=== PATIENT | female | born 1980 | race Caucasian/White ===

== ENCOUNTER → 2016-08-01 | Outpatient (REF) | payer MEDICARE ==
[~2016-08-01] MED LIST: ALBUTEROL INH INH; AMOXICILLIN PO; CELE100C; CELE40TA; CELEXA; DARV100T; FLEXERIL; GLUC500T OR; HYDROCODONE; HYDROCODONE PO; IBUP600T; LISI5TAB OR; MACR50CA OR; PERC5TAB8; RISP3TAB16 OR; RISPERIDOL PO; ROBITUSSIN PE PO; TYLEN PO; VOLTAREN GEL; WELL100T OR; [UNRECOGNIZED DRUG - OTHER]; [UNRECOGNIZED DRUG - OTHER] PO
== END ==
LOC: M SFHCPLAZ 14:47
PROVIDERS: ATTEND Family Medicine
DX: E11.9 Type 2 diabetes mellitus without complications (principal)

== ENCOUNTER → 2016-08-09 | Outpatient (REF) | payer MEDICARE ==
[2016-08-09 11:02] LABS: ANION GAP 7 MEQ/L (8-16); BLOOD UREA NITROGEN 13 MG/DL (7-18); CALCIUM LEVEL 8.4 MG/DL (8.5-10.1); CARBON DIOXIDE LEVEL 28 MEQ/L (21-32); CHLORIDE LEVEL 107 MEQ/L (98-107); CREATININE FOR GFR 0.78 MG/DL (0.55-1.02); GLOMERULAR FILTRATION RATE > 60.0 (>60); GLUCOSE, FASTING 185 MG/DL (70-105); POTASSIUM SERUM 4.1 MEQ/L (3.5-5.1); SODIUM LEVEL 142 MEQ/L (136-145)
== END ==
LOC: M SFHCPLAZ 09:17
PROVIDERS: ATTEND Family Medicine
DX: E11.9 Type 2 diabetes mellitus without complications (principal)

== ENCOUNTER → 2016-10-13 | Outpatient (REF) | payer MEDICARE, MEDICAID | LOC: M SFHCPLAZ 15:17 | DX: M79.89 Other specified soft tissue disorders (principal) | CPT/HCPCS: 82043; G0463 ==

== ENCOUNTER → 2016-12-05 | Outpatient (REF) | payer MEDICARE, MEDICAID | LOC: M SFHCWAGY 13:25 | PROVIDERS: ATTEND Nurse Practitioner Family | DX: Z12.4 Encounter for screening for malignant neoplasm of cervix (principal); R87.610 Atypical squamous cells of undetermined significance on cytologic smear of cervix (ASC-US) | CPT/HCPCS: 87624; G0101; G0123 ==

== ENCOUNTER → 2016-12-07 | Outpatient (REF) | payer MEDICARE, MEDICAID | LOC: M SFHCPLAZ 09:32 | DX: E11.9 Type 2 diabetes mellitus without complications (principal) ==

== ENCOUNTER → 2016-12-15 | Outpatient (CLI) | payer MEDICARE, MEDICAID ==
--- NOTE | 2016-12-15 12:03 | REP ---
Soft-tissue ultrasound left lower extremity. History: Mass in the left lower leg. 1 cm nodule in the anterior aspect of the left lower leg on physical examination. No comparison radiography. Findings: Scanning at the level of the palpable lump demonstrates a calcified echogenic shadowing nodule measuring 1.0 x 1.0 x 0.7 cm in the subcutaneous fat. There is no evidence of intralesional blood flow by Doppler. No other mass lesion is seen. Impression: Calcified nodule in the subcutaneous fat anterior aspect of the left leg. Signed by Dontrell Gayle MD 12/15/2016 02:15 P
== END ==
LOC: M RAD 09:52
PROVIDERS: ATTEND Family Medicine
DX: R22.42 Localized swelling, mass and lump, left lower limb (principal)

== ENCOUNTER → 2017-03-13 | Outpatient (REF) | payer MEDICARE ==
[2017-03-13 12:31] LABS: ALBUMIN 3.3 GM/DL (3.2-5.2); ALKALINE PHOSPHATASE 61 U/L (45-117); ALT/SGPT 37 U/L (12-78); AST/SGOT 18 U/L (7-37); BILIRUBIN,DIRECT < 0.1 MG/DL (0.0-0.2); BILIRUBIN,TOTAL 0.2 MG/DL (0.2-1.0); TOTAL PROTEIN 6.3 GM/DL (6.4-8.2)
[2017-03-14 11:03] LABS: HEPATITIS B SURFACE ANTIBODY NEGATIVE (POSITIVE)
== END ==
LOC: M SFHCPLAZ 09:38
DX: E11.9 Type 2 diabetes mellitus without complications (principal); Z11.59 Encounter for screening for other viral diseases; K76.0 Fatty (change of) liver, not elsewhere classified; N92.0 Excessive and frequent menstruation with regular cycle

== ENCOUNTER → 2017-07-03 | Outpatient (REF) | payer MEDICARE, MEDICAID ==
[2017-07-03 11:17] LABS: ESTIMATED AVERAGE GLUCOSE 206 MG/DL (60-110); HEMOGLOBIN A1c 8.8 %
== END ==
LOC: M LABDRAW1 10:40
DX: E11.9 Type 2 diabetes mellitus without complications (principal)
CPT/HCPCS: 83036

== ENCOUNTER → 2017-08-21 | Outpatient (REF) | payer MEDICARE, MEDICAID ==
[2017-08-21 12:11] LABS: LIPASE 150 U/L (73-393)
[2017-08-21 12:11] LABS: AMYLASE 33 U/L (25-115)
== END ==
LOC: M SFHCPLAZ 09:19
DX: K21.9 Gastro-esophageal reflux disease without esophagitis (principal)
CPT/HCPCS: 82150

== ENCOUNTER → 2017-08-26 | Outpatient (REF) | payer MEDICARE, MEDICAID ==
[2017-09-03 10:11] LABS: H PYLORI STOOL ANTIGEN Negative (Negative)
== END ==
LOC: M SFHCLERA 08-31 17:13
DX: K21.9 Gastro-esophageal reflux disease without esophagitis (principal)
CPT/HCPCS: 87338

== ENCOUNTER → 2017-09-12 | Outpatient (REF) | payer MEDICARE, MEDICAID ==
[2017-09-12 11:56] LABS: CONTROL LINE UCG INT CTR LINE PRESENT; URINE PREG TEST NEGATIVE (NEGATIVE)
[2017-09-12 12:19] LABS: ALBUMIN 3.5 GM/DL (3.2-5.2); ALBUMIN/GLOBULIN RATIO 1.06 (1.00-1.93); ALKALINE PHOSPHATASE 74 U/L (45-117); ALT/SGPT 56 U/L (12-78); ANION GAP 8 MEQ/L (8-16); AST/SGOT 27 U/L (7-37); BILIRUBIN,TOTAL 0.5 MG/DL (0.2-1.0); BLOOD UREA NITROGEN 14 MG/DL (7-18); CALCIUM LEVEL 8.4 MG/DL (8.5-10.1); CARBON DIOXIDE LEVEL 27 MEQ/L (21-32); CHLORIDE LEVEL 103 MEQ/L (98-107); CREATININE FOR GFR 0.64 MG/DL (0.55-1.30); GLOMERULAR FILTRATION RATE > 60.0 (>60); GLUCOSE, FASTING 323 MG/DL (70-100); POTASSIUM SERUM 4.2 MEQ/L (3.5-5.1); SODIUM LEVEL 138 MEQ/L (136-145); TOTAL PROTEIN 6.8 GM/DL (6.4-8.2)
== END ==
LOC: M SFHCPLAZ 08:08
DX: R63.5 Abnormal weight gain (principal); K21.9 Gastro-esophageal reflux disease without esophagitis
CPT/HCPCS: 84443

== ENCOUNTER 2017-09-27 11:07 | Day surgery (SDC) | payer MEDICARE, MEDICAID ==
[2017-09-27] MEDS: NS 1,000 ML IV (12:15)
[2017-09-27 12:44] LABS: BEDSIDE GLUCOSE 337 MG/DL (70-105)
[2017-09-27] MEDS ORDERED: fentaNYL 100 MCG/2 ML INJECTION (J3010) As Ordered (13:02)
[2017-09-27] MEDS ORDERED: PROPOFOL 200 MG/20 ML VIAL As Ordered (13:17)
[2017-09-27] MEDS ORDERED: LIDOCAINE 2% INJ 100 MG/5 ML SDV (FOR ANES.) As Ordered (13:17)
== END 2017-09-27 13:59 | disposition home or self-care (01) ==
LOC: M OPP 11:07
DX: R11.10 Vomiting, unspecified (principal); K21.0 Gastro-esophageal reflux disease with esophagitis; K29.70 Gastritis, unspecified, without bleeding; E11.9 Type 2 diabetes mellitus without complications; R12 Heartburn; M19.90 Unspecified osteoarthritis, unspecified site; F41.9 Anxiety disorder, unspecified; F32.9 Major depressive disorder, single episode, unspecified; Z87.828 Personal history of other (healed) physical injury and trauma; G43.909 Migraine, unspecified, not intractable, without status migrainosus; G62.9 Polyneuropathy, unspecified; F43.10 Post-traumatic stress disorder, unspecified; J45.909 Unspecified asthma, uncomplicated; G47.30 Sleep apnea, unspecified; M79.7 Fibromyalgia; J44.9 Chronic obstructive pulmonary disease, unspecified; E66.9 Obesity, unspecified; M51.9 Unspecified thoracic, thoracolumbar and lumbosacral intervertebral disc disorder; E28.2 Polycystic ovarian syndrome; Z88.8 Allergy status to other drugs, medicaments and biological substances; Z91.040 Latex allergy status; Z79.899 Other long term (current) drug therapy; Z79.4 Long term (current) use of insulin
CPT/HCPCS: 43239

== ENCOUNTER 2017-09-29 19:28 | Observation (INO) | payer MEDICARE, MEDICAID ==
[2017-09-29 20:53] LABS: BASO # 0.1 10^3/uL (0.0-0.2); BASO % 0.4 % (0.0-1.0); EOS # 0.1 10^3/uL (0.0-0.50); EOS % 0.6 % (0.0-3.0); HEMATOCRIT 44.5 % (36.0-47.0); HEMOGLOBIN 15.5 g/dl (12.0-15.5); IMMATURE GRANULOCYTE % 0.5 % (0-3.0); LYMPH # 1.7 10^3/uL (1.5-4.5); MEAN CORPUSCULAR HEMOGLOBIN 27.9 pg (27.0-33.0); MEAN CORPUSCULAR HGB CONC 34.8 g/dl (32.0-36.5); MEAN CORPUSCULAR VOLUME 80.2 fl (80.0-96.0); MONO # 0.7 10^3/uL (0.0-0.8); MONO % 4.7 % (0.0-5.0); NEUTROPHILS # 11.4 10^3/uL (1.8-7.7); NEUTROPHILS % 81.8 % (36.0-66.0); PLATELET COUNT, AUTOMATED 178 10^3/uL (150-450); RED BLOOD COUNT 5.55 10^6/uL (4.00-5.40)
[2017-09-29] MEDS: ACETAMINOPHEN TAB 650MG DOSE (2X325MG) PO ×2 (20:56)
[2017-09-29] MEDS: ONDANSETRON 4MG/2ML VIAL (J2405) IV ×2 (20:56)
[2017-09-29] MEDS: GI COCKTAIL 50ML BTL(HYOSCYAMINE/MAALOX/LIDOCAINE VISCOUS)(1:3:1) PO ×2 (20:56)
[2017-09-29] MEDS: NS 1,000 ML IV ×2 (20:56)
[2017-09-29 21:15] LABS: CONTROL LINE HCG INT CTR LINE PRESENT; HCG, SERUM QUALITATIVE NEGATIVE (NEGATIVE)
[2017-09-29 21:22] LABS: ALBUMIN 3.9 GM/DL (3.2-5.2); ALBUMIN/GLOBULIN RATIO 0.93 (1.00-1.93); ALKALINE PHOSPHATASE 83 U/L (45-117); ALT/SGPT 61 U/L (12-78); ANION GAP 10 MEQ/L (8-16); AST/SGOT 24 U/L (7-37); BILIRUBIN,DIRECT 0.1 MG/DL (0.0-0.2); BILIRUBIN,TOTAL 0.6 MG/DL (0.2-1.0); BLOOD UREA NITROGEN 12 MG/DL (7-18); CALCIUM LEVEL 8.6 MG/DL (8.5-10.1); CARBON DIOXIDE LEVEL 25 MEQ/L (21-32); CHLORIDE LEVEL 102 MEQ/L (98-107); CREATININE FOR GFR 0.77 MG/DL (0.55-1.30); GLOMERULAR FILTRATION RATE > 60.0 (>60); GLUCOSE, FASTING 289 MG/DL (70-100); LIPASE 120 U/L (73-393); POTASSIUM SERUM 3.9 MEQ/L (3.5-5.1); SODIUM LEVEL 137 MEQ/L (136-145); TOTAL PROTEIN 8.1 GM/DL (6.4-8.2)
[2017-09-29] MEDS ORDERED: ISOVUE-370 76% 100ML VIAL (Q9967) As Ordered ×2 (21:28)
[2017-09-29 22:14] LABS: KETONE, URINE AUTO RFX TRACE mg/dL (NEGATIVE); LEUKOCYTE ESTERASE UR AUTO RFX NEGATIVE (NEGATIVE); MUCUS, URINE RFX SMALL (NEGATIVE); NITRITE, URINE AUTO RFX NEGATIVE (NEGATIVE); RBC, URINE AUTO RFX 2 /HPF (0-3); SPECIFIC GRAVITY UR AUTO RFX 1.035 (1.002-1.035); SQUAM EPITHELIAL CELL UR AURFX 5 /HPF (0-6); WBC, URINE AUTO RFX 2 /HPF (0-3)
[2017-09-29 22:48] LABS: LACTIC ACID SEPSIS PROTOCOL 2.6 MMOL/L (0.4-2.0)
[2017-09-29] MEDS: METOCLOPRAMIDE INJ 10MG/2ML VIAL (J2765) IV ×2 (23:15)
[2017-09-30] MEDS ORDERED: NS 1,000 ML IV ×2 (01:00)
[2017-09-30] MEDS: PIPERACILLIN/TAZOBACTAM SOD 3.375 GM in D5W MINI-BAG PLUS 50 ML IV ×2 (01:30→08:57)
[2017-09-30] MEDS ORDERED: PROMETHAZINE INJ 25 MG/ML VIAL (J2550) IV ×2 (01:30)
[2017-09-30] MEDS ORDERED: ONDANSETRON 4MG/2ML VIAL (J2405) IV ×2 (01:30)
[2017-09-30] MEDS ORDERED: METOCLOPRAMIDE INJ 10MG/2ML VIAL (J2765) IV ×2 (01:30)
[2017-09-30] MEDS: SUCRALFATE 1 GM TAB PO ×4 (01:30→08:54)
[2017-09-30] MEDS ORDERED: MORPHINE 4 MG/ML 1ML VIAL/SYRINGE (J2270) IV ×2 (01:30)
[2017-09-30] MEDS ORDERED: KETOROLAC 30 MG/ML VIAL (J1885) IV ×2 (01:30)
[2017-09-30 02:32] LABS: BEDSIDE GLUCOSE 269 MG/DL (70-105)
[2017-09-30] MEDS: NS 1,000 ML IV ×4 (02:55→08:57)
[2017-09-30] MEDS: PANTOPRAZOLE 40MG INJ (PROTONIX) (C9113) IV ×4 (02:55→08:54)
[2017-09-30 07:13] LABS: HEMATOCRIT 36.1 % (36.0-47.0); MEAN CORPUSCULAR HEMOGLOBIN 27.8 pg (27.0-33.0); MEAN CORPUSCULAR HGB CONC 34.3 g/dl (32.0-36.5); MEAN CORPUSCULAR VOLUME 80.9 fl (80.0-96.0); PLATELET COUNT, AUTOMATED 136 10^3/uL (150-450); RED BLOOD COUNT 4.46 10^6/uL (4.00-5.40); RED CELL DISTRIBUTION WIDTH 13.2 % (11.5-14.5); WHITE BLOOD COUNT 9.3 10^3/uL (4.0-10.0)
[2017-09-30 07:14] LABS: HEMOGLOBIN 12.4 g/dl (12.0-15.5)
[2017-09-30 07:32] LABS: ALBUMIN 2.9 GM/DL (3.2-5.2); ALBUMIN/GLOBULIN RATIO 0.88 (1.00-1.93); ALKALINE PHOSPHATASE 60 U/L (45-117); ALT/SGPT 39 U/L (12-78); ANION GAP 8 MEQ/L (8-16); AST/SGOT 12 U/L (7-37); BILIRUBIN,TOTAL 0.7 MG/DL (0.2-1.0); BLOOD UREA NITROGEN 10 MG/DL (7-18); CARBON DIOXIDE LEVEL 26 MEQ/L (21-32); CHLORIDE LEVEL 107 MEQ/L (98-107); CREATININE FOR GFR 0.58 MG/DL (0.55-1.30); GLOMERULAR FILTRATION RATE > 60.0 (>60); GLUCOSE, FASTING 245 MG/DL (70-100); POTASSIUM SERUM 3.7 MEQ/L (3.5-5.1); SODIUM LEVEL 141 MEQ/L (136-145); TOTAL PROTEIN 6.2 GM/DL (6.4-8.2)
[2017-09-30] MEDS: buPROPion **XL** TABLET 150MG (WELLBUTRIN XL) PO ×4 (08:54→09:04)
[2017-09-30] MEDS: HumaLOG INSULIN (NovoLOG) PER UNIT SC ×2 (08:56)
[2017-09-30] MEDS ORDERED: HumaLOG INSULIN (NovoLOG) PER UNIT SC ×2 (21:00)
[2017-10-01] MEDS ORDERED: buPROPion **XL** TABLET 150MG (WELLBUTRIN XL) PO ×2 (09:00)
== END 2017-09-30 13:35 | disposition home or self-care (01) ==
LOC: M ED INP 09-30 01:26 → M ED 19:28 → M MS5PR 09-30 02:28 → M ED INP 19:30 → M MS5PR 09-30 02:28
DX: R10.13 Epigastric pain (principal); K21.0 Gastro-esophageal reflux disease with esophagitis; K29.70 Gastritis, unspecified, without bleeding; R09.81 Nasal congestion; R05 Cough; D72.829 Elevated white blood cell count, unspecified; E66.01 Morbid (severe) obesity due to excess calories; J44.9 Chronic obstructive pulmonary disease, unspecified; M79.7 Fibromyalgia; G43.909 Migraine, unspecified, not intractable, without status migrainosus; E11.9 Type 2 diabetes mellitus without complications; G47.30 Sleep apnea, unspecified; F32.9 Major depressive disorder, single episode, unspecified; F41.9 Anxiety disorder, unspecified; M19.90 Unspecified osteoarthritis, unspecified site; M51.9 Unspecified thoracic, thoracolumbar and lumbosacral intervertebral disc disorder; E28.2 Polycystic ovarian syndrome; Z79.899 Other long term (current) drug therapy; Z79.4 Long term (current) use of insulin; Z87.891 Personal history of nicotine dependence; Z88.8 Allergy status to other drugs, medicaments and biological substances; Z91.040 Latex allergy status
CPT/HCPCS: C9113

== ENCOUNTER → 2017-10-05 | Outpatient (CLI) | payer MEDICARE, MEDICAID | LOC: M RAD 06:58 | DX: K21.9 Gastro-esophageal reflux disease without esophagitis (principal) | CPT/HCPCS: 78264 ==

== ENCOUNTER 2017-11-30 22:41 | Emergency (ER) | payer MEDICARE, MEDICAID ==
[2017-11-30 23:31] LABS: ABG BASE EXCESS -2.3 (-2.0-2.0); ABG HCO3 20.4 MEQ/L (22.0-26.0); ABG O2 SATURATION 98.7 % (95.0-99.0); ABG PARTIAL PRESSURE CO2 29.7 mmHg (35.0-45.0); ABG STANDARD HCO3 22.6 MEQ/L (22.0-26.0); ABG TOTAL CO2 21.3 MEQ/L (22.0-29.0); ABG pH (ARTERIAL) 7.455 UNITS (7.350-7.450)
[2017-11-30 23:37] LABS: INR 1.02; PROTHROMBIN TIME 13.5 SECONDS (12.1-14.4)
[2017-11-30 23:38] LABS: PARTIAL THROMBOPLASTIN TIME 24.5 SECONDS (25.4-37.6)
[2017-11-30 23:47] LABS: ANION GAP 9 MEQ/L (8-16); BLOOD UREA NITROGEN 12 MG/DL (7-18); CALCIUM LEVEL 8.7 MG/DL (8.5-10.1); CARBON DIOXIDE LEVEL 25 MEQ/L (21-32); CHLORIDE LEVEL 104 MEQ/L (98-107); CPK CREATINE PHOSPHOKINASE 174 U/L (26-192); CREATININE FOR GFR 0.73 MG/DL (0.55-1.30); GLOMERULAR FILTRATION RATE > 60.0 (>60); GLUCOSE, FASTING 344 MG/DL (70-100); POTASSIUM SERUM 4.1 MEQ/L (3.5-5.1); SODIUM LEVEL 138 MEQ/L (136-145); TROPONIN I < 0.02 NG/ML (< 0.10)
[2017-11-30 23:48] LABS: MB/CK RELATIVE INDEX 8.62 (< OR =4)
[2017-12-01] MEDS: ASPIRIN 325 MG TAB PO
[2017-12-01] MEDS: KETOROLAC 30 MG/ML VIAL (J1885) IV (00:02)
[2017-12-01 04:40] LABS: CK-MB VALUE MASS 9.9 NG/ML (<3.6); CPK CREATINE PHOSPHOKINASE 112 U/L (26-192); MB/CK RELATIVE INDEX 8.83 (< OR =4); TROPONIN I < 0.02 NG/ML (< 0.10)
== END 2017-12-01 05:06 | disposition home or self-care (01) ==
LOC: M ED 22:41
DX: R07.89 Other chest pain (principal); E11.9 Type 2 diabetes mellitus without complications; F41.9 Anxiety disorder, unspecified; K21.9 Gastro-esophageal reflux disease without esophagitis; J45.909 Unspecified asthma, uncomplicated
CPT/HCPCS: J1885

== ENCOUNTER → 2018-03-27 | Outpatient (CLI) | payer MEDICARE, MEDICAID ==
[~2018-03-27] MED LIST changes: +ARNU1INH INH; +BASA100I SC; +BUPR150T3 PO; +BUPR300T34 PO; +HUMA100I5 SC; +KETO10TAB PO; +LORA-243; +METF10004 PO; +NAPR-885; +PANT40TA3 PO; +SUCR1TA PO; +TRUL10IN SC; +VENTAER INH; +ZITHTAB PO
--- NOTE | 2018-03-27 12:38 | REP ---
Duplex extremity venous ultrasound: Bilateral lower extremities. History: Bilateral leg pain and swelling times 3 weeks. Findings: The deep veins are anechoic and fully compressible from the groin to the popliteal fossa in the right and left lower extremity. Color flow imaging is homogeneous. Spectral Doppler interrogation demonstrates intact respiratory variation in flow and normal manual augmentation of flow. There is no evidence of deep vein thrombosis. Impression: Negative bilateral lower extremity duplex venous ultrasound. No evidence of deep vein thrombosis. Electronically Signed by Dontrell Gayle MD 03/27/2018 12:30 P
== END ==
LOC: M RAD 10:46
PROVIDERS: ATTEND Physician Assistant
DX: R22.41 Localized swelling, mass and lump, right lower limb (principal)

== ENCOUNTER → 2018-04-01 | Outpatient (REF) | payer MEDICARE, MEDICAID ==
[2018-04-05 14:14] LABS: HPV HYBRID CAPTURE II Positive (Negative)
== END ==
LOC: M SFHCWAGY 08:55
PROVIDERS: ATTEND Nurse Practitioner Family
DX: Z12.4 Encounter for screening for malignant neoplasm of cervix (principal); R87.5 Abnormal microbiological findings in specimens from female genital organs
CPT/HCPCS: 87624; G0101; G0123

== ENCOUNTER → 2018-05-06 | Outpatient (REF) | payer MEDICARE, MEDICAID | LOC: M SFHCWAGY 13:30 | PROVIDERS: ATTEND Nurse Practitioner Women's Health | DX: R87.810 Cervical high risk human papillomavirus (HPV) DNA test positive (principal) ==

== ENCOUNTER 2018-05-29 11:51 | Emergency (ER) | payer MEDICARE, MEDICAID ==
[~2018-05-29] VITALS: Ht 170.2 cm; Wt 122.7 kg
[2018-05-29 11:59] VITALS: BP 165/96
--- NOTE | 2018-05-29 12:44 | REP ---
RIGHT ELBOW, FOUR VIEWS: HISTORY: Injury. There is no acute fracture or dislocation. The joint space is normal in appearance. IMPRESSION: There is no acute fracture or dislocation. Electronically Signed by Adalid Souza MD 05/29/2018 12:56 P
--- NOTE | 2018-05-29 12:45 | REP ---
RIGHT FOREARM, TWO VIEWS: HISTORY: Fall. There is no acute fracture or dislocation. The joint spaces are normal in appearance. IMPRESSION: There is no acute fracture or dislocation. Electronically Signed by Adalid Souza MD 05/29/2018 12:56 P
== END 2018-05-29 12:44 | disposition home or self-care (01) ==
LOC: M ED 11:51
DX: S56.511A Strain of other extensor muscle, fascia and tendon at forearm level, right arm, initial encounter (principal); W18.39XA Other fall on same level, initial encounter; Y92.410 Unspecified street and highway as the place of occurrence of the external cause; Z79.899 Other long term (current) drug therapy; Z88.8 Allergy status to other drugs, medicaments and biological substances; Z91.040 Latex allergy status

== ENCOUNTER 2018-07-27 22:09 | Emergency (ER) | payer MEDICARE, MEDICAID ==
[~2018-07-27] VITALS: Ht 170.2 cm; Wt 120.5 kg
[2018-07-27] MEDS ORDERED: RANI1TAB38 PO (22:31)
[2018-07-27] MEDS ORDERED: DEBL1TAB PO (22:31)
[2018-07-27] MEDS ORDERED: [UNRECOGNIZED DRUG - CODE] PO (22:31)
[2018-07-27 23:56] VITALS: BP 161/89
== END 2018-07-27 23:59 | disposition home or self-care (01) ==
LOC: M ED 22:09
DX: R45.4 Irritability and anger (principal); Z79.82 Long term (current) use of aspirin; Z79.51 Long term (current) use of inhaled steroids; Z79.4 Long term (current) use of insulin; Z79.899 Other long term (current) drug therapy; Z88.8 Allergy status to other drugs, medicaments and biological substances; Z91.040 Latex allergy status

== ENCOUNTER → 2018-08-06 | Outpatient (REF) | payer MEDICARE, MEDICAID ==
[~2018-08-06] MED LIST changes: +DEBL1TAB PO; +RANI1TAB38 PO; +[UNRECOGNIZED DRUG - CODE] PO
[2018-08-06 12:52] LABS: C REACTIVE PROTEIN QUANTITATIV < 0.30 MG/DL (0.00-0.30); RHEUMATOID FACTOR QUANT < 10.0 IU/ML (<15.0); URIC ACID 3.8 MG/DL (2.6-6.0)
== END ==
LOC: M LABDRAW1 11:39
PROVIDERS: ATTEND Physician Assistant
DX: M79.642 Pain in left hand (principal)

== ENCOUNTER 2018-08-21 14:27 | Emergency (ER) | payer MEDICARE, MEDICAID ==
[~2018-08-21] VITALS: Ht 170.2 cm; Wt 121.4 kg
--- NOTE | 2018-08-21 15:16 | REP ---
LEFT HAND, FOUR VIEWS: HISTORY: Trauma. There is a nondisplaced fracture of the base of the fifth proximal phalange. There is no dislocation. The joint spaces are normal in appearance. A subchondral cyst is present in the head of the third metacarpal. IMPRESSION: Nondisplaced fracture of the fifth proximal phalange. Electronically Signed by Adalid Souza MD 08/21/2018 03:21 P
[2018-08-21 16:18] VITALS: BP 126/70
== END 2018-08-21 16:21 | disposition home or self-care (01) ==
LOC: M ED 14:27
DX: S62.641A Nondisplaced fracture of proximal phalanx of left index finger, initial encounter for closed fracture (principal); W19.XXXA Unspecified fall, initial encounter; Y92.410 Unspecified street and highway as the place of occurrence of the external cause; Y93.9 Activity, unspecified; Y99.9 Unspecified external cause status; E11.9 Type 2 diabetes mellitus without complications; E28.2 Polycystic ovarian syndrome; M79.7 Fibromyalgia; Z79.82 Long term (current) use of aspirin; Z79.4 Long term (current) use of insulin; Z79.899 Other long term (current) drug therapy; Z91.040 Latex allergy status; Z88.8 Allergy status to other drugs, medicaments and biological substances

== ENCOUNTER 2018-08-30 18:02 | Emergency (ER) | payer MEDICARE, MEDICAID ==
[~2018-08-30] VITALS: Ht 170.2 cm; Wt 119.1 kg
[2018-08-30] MEDS ORDERED: NOVOINJ3 (18:21)
[2018-08-30] MEDS ORDERED: KETOROLAC 30 MG/ML VIAL (J1885) IM ONE (18:45)
[2018-08-30] MEDS ORDERED: NS 1,000 ML IV ONE (18:45)
[2018-08-30] MEDS ORDERED: diphenhydrAMINE INJ 50MG/ML VIAL (J1200) IV ONE (18:45)
[2018-08-30] MEDS ORDERED: METOCLOPRAMIDE INJ 10MG/2ML VIAL (J2765) IV ONE (18:45)
[2018-08-30] MEDS ORDERED: KETOROLAC 30 MG/ML VIAL (J1885) IV ONE (19:30)
[2018-08-30 20:42] VITALS: BP 137/86
== END 2018-08-30 20:51 | disposition home or self-care (01) ==
LOC: M ED 18:02
DX: G43.909 Migraine, unspecified, not intractable, without status migrainosus (principal); E11.9 Type 2 diabetes mellitus without complications; J45.909 Unspecified asthma, uncomplicated; F33.9 Major depressive disorder, recurrent, unspecified; F41.9 Anxiety disorder, unspecified; M79.7 Fibromyalgia; Z79.899 Other long term (current) drug therapy; Z79.82 Long term (current) use of aspirin; Z79.4 Long term (current) use of insulin; Z88.8 Allergy status to other drugs, medicaments and biological substances; Z91.040 Latex allergy status
CPT/HCPCS: 84702; 96361; 96374; 96375; 99284; J1200; J1885; J2765

== ENCOUNTER 2018-09-01 11:37 | Emergency (ER) | payer MEDICARE, MEDICAID ==
[~2018-09-01] VITALS: Ht 170.2 cm; Wt 119.1 kg
[~2018-09-01 11:37] MED LIST changes: +NOVOINJ3
[2018-09-01] MEDS ORDERED: PROCHLORPERAZINE 10 MG/2 ML VIAL (J0780) IV ONE (13:00)
[2018-09-01] MEDS ORDERED: diphenhydrAMINE INJ 50MG/ML VIAL (J1200) IV ONE (13:00)
[2018-09-01] MEDS ORDERED: KETOROLAC 30 MG/ML VIAL (J1885) IV ONE (13:00)
[2018-09-01] MEDS ORDERED: ACETAMINOPHEN 500 MG TAB PO ONE (13:00)
[2018-09-01] MEDS ORDERED: NS 1,000 ML IV ONE (13:00)
[2018-09-01 14:02] VITALS: BP 155/90
== END 2018-09-01 14:30 | disposition home or self-care (01) ==
LOC: M ED 11:37
DX: G43.909 Migraine, unspecified, not intractable, without status migrainosus (principal); E11.9 Type 2 diabetes mellitus without complications; Z79.4 Long term (current) use of insulin; Z79.51 Long term (current) use of inhaled steroids; Z79.82 Long term (current) use of aspirin; Z79.84 Long term (current) use of oral hypoglycemic drugs; Z88.2 Allergy status to sulfonamides; Z88.8 Allergy status to other drugs, medicaments and biological substances; Z91.040 Latex allergy status
CPT/HCPCS: 84702; 96361; 96374; 96375; 99284; J0780; J1200; J1885

== ENCOUNTER → 2018-09-10 | Outpatient (CLI) | payer MEDICARE, MEDICAID ==
--- NOTE | 2018-09-10 11:47 | REP ---
CERVICAL SPINE, SEVEN VIEWS: HISTORY: Cervical pain. The cervical spine is visualized from C1 to the C7 level in the lateral radiographs. There is no acute fracture or subluxation. The intervertebral discs are normal in height. The neural foramina are patent. IMPRESSION: There is no acute fracture or subluxation. Electronically Signed by Adalid Souza MD 09/10/2018 11:50 A
== END ==
LOC: M RAD 10:39
PROVIDERS: ATTEND Family Medicine
DX: M54.2 Cervicalgia (principal)

== ENCOUNTER → 2018-09-27 | Outpatient (CLI) | payer MEDICARE, MEDICAID ==
--- NOTE | 2018-09-27 11:27 | REP ---
LEFT KNEE SERIES: Five views. HISTORY: Acute pain in the left knee. Comparison left knee radiographs are from August 29, 2009. FINDINGS: Five views of the left knee demonstrate moderate three compartment left knee osteoarthritis. There is patellofemoral spurring and narrowing visible on the lateral film. Medial and lateral compartment spur formation is noted. The changes are more pronounced than on the August 29, 2009 exam when they were mild. There is diffuse osteopenia. No erosive change is seen. No evidence of joint effusion. IMPRESSION: Moderate three compartment osteoarthritis, radiographically more pronounced than on the 2010 prior study. No acute bony abnormality. Electronically Signed by Dontrell Gayle MD 09/27/2018 03:32 P
== END ==
LOC: M RAD 08:52
PROVIDERS: ATTEND Hospitalist
DX: M17.12 Unilateral primary osteoarthritis, left knee (principal)

== ENCOUNTER 2018-10-19 11:15 | Emergency (ER) | payer MEDICARE, MEDICAID ==
[~2018-10-19] VITALS: Ht 170.2 cm; Wt 119.1 kg
[~2018-10-19 11:15] MED LIST changes: +ASPI81CH2 PO; -[UNRECOGNIZED DRUG - CODE] PO
[2018-10-19] MEDS ORDERED: SUMA50TA2 (11:31)
[2018-10-19] MEDS ORDERED: CYCL10TA (11:31)
[2018-10-19] MEDS ORDERED: MACR100C43 PO (12:41)
[2018-10-19 12:47] VITALS: BP 143/92
[2018-10-21] MEDS ORDERED: KEFL500C17 PO (13:00)
== END 2018-10-19 12:49 | disposition home or self-care (01) ==
LOC: M ED 11:15
DX: N39.0 Urinary tract infection, site not specified (principal); E11.9 Type 2 diabetes mellitus without complications; J45.909 Unspecified asthma, uncomplicated; Z87.440 Personal history of urinary (tract) infections; Z79.82 Long term (current) use of aspirin; Z79.4 Long term (current) use of insulin; Z79.899 Other long term (current) drug therapy; Z88.8 Allergy status to other drugs, medicaments and biological substances; Z91.040 Latex allergy status

== ENCOUNTER → 2019-03-28 | Outpatient (CLI) | payer MEDICARE, MEDICAID ==
[~2019-03-28] MED LIST changes: -BUPR300T34 PO; +BUPR300T92 PO; +CYCL10TA; +KEFL500C17 PO; +MACR100C43 PO; +SUMA50TA2
--- NOTE | 2019-03-28 13:59 | REPMRS ---
Patient History The patient states she had a clinical breast exam in March 2019.Patient is nulliparous. No known family history of cancer. Took hormonal contraceptives for 5 years. Digital Woman Screen Mammo: March 28, 2019 - Exam #: [id number] Bilateral CC and MLO view(s) were taken. Technologist: Nguyen Aquino, Technologist FINDINGS: There are scattered fibroglandular densities. There is no evidence of dominant mass, architectural distortion, or grouped microcalcification typical of malignancy. 3-D tomosynthesis shows no additional findings. Assessment: BI-RADS/ACR category 1 mammogram. Negative Mammogram. Recommendation Routine screening mammogram of both breasts in 1 year (for women over age 40). This patient's Lifetime Breast Cancer RIsk is estimated at 14.7 %. This mammogram was interpreted with the aid of an FDA-approved computer-aided dectection system. Electronically Signed By: Jose Gayle MD 03/28/19 [id number]
== END ==
LOC: M WHC 11:08
PROVIDERS: ATTEND Nurse Practitioner Family
DX: Z01.411 Encounter for gynecological examination (general) (routine) with abnormal findings (principal); Z12.31 Encounter for screening mammogram for malignant neoplasm of breast; Z92.0 Personal history of contraception
CPT/HCPCS: 77063; 77067; 87624; G0123; G0463

== ENCOUNTER → 2019-03-28 | Outpatient (REF) | payer MEDICARE, MEDICAID ==
[~2019-03-28] MED LIST changes: +BUPR300T34 PO; -BUPR300T92 PO
== END ==
LOC: M PLALAB 11:32
PROVIDERS: ATTEND Nurse Practitioner Family
DX: Z12.4 Encounter for screening for malignant neoplasm of cervix (principal)
CPT/HCPCS: 87624; G0123

== ENCOUNTER → 2019-05-19 | Outpatient (REF) | payer MEDICARE, MEDICAID ==
[~2019-05-19] MED LIST changes: -BUPR300T34 PO; +BUPR300T92 PO
== END ==
LOC: M SFHCWAGY 13:17
PROVIDERS: ATTEND Nurse Practitioner Women's Health
DX: R87.810 Cervical high risk human papillomavirus (HPV) DNA test positive (principal)

== ENCOUNTER → 2019-07-17 | Outpatient (REF) | payer MEDICARE, MEDICAID ==
[~2019-07-17] MED LIST changes: +BACT800T5 PO; +CYCL-707 PO; -CYCL10TA; +EFFE75CA2 PO; +FARX1TAB3 PO
[2019-07-17 18:03] LABS: ALBUMIN 3.5 GM/DL (3.2-5.2); ALT/SGPT 59 U/L (12-78); BILIRUBIN,TOTAL 0.5 MG/DL (0.2-1.0); BLOOD UREA NITROGEN 8 MG/DL (7-18); CALCIUM LEVEL 8.5 MG/DL (8.5-10.1); CARBON DIOXIDE LEVEL 27 MEQ/L (21-32); CHLORIDE LEVEL 104 MEQ/L (98-107); CHOLESTEROL LEVEL 159 MG/DL (<200); CHOLESTEROL RISK RATIO 4.676 (<5); CREATININE FOR GFR 0.61 MG/DL (0.55-1.30); GLOMERULAR FILTRATION RATE > 60.0 (>58); GLUCOSE, FASTING 272 MG/DL (70-100); HDL CHOLESTEROL 34 MG/DL (>40); LDL CHOLESTEROL 71 MG/DL (<100); NON-HDL-C 125 MG/DL; POTASSIUM SERUM 3.5 MEQ/L (3.5-5.1); SODIUM LEVEL 138 MEQ/L (136-145); TOTAL PROTEIN 6.5 GM/DL (6.4-8.2); TRIGLYCERIDES LEVEL 272 MG/DL (<150)
[2019-07-17 18:10] LABS: HEMOGLOBIN A1c 10.5 %
[2019-07-17 18:38] LABS: MALB URINE SIEMENS 31.2 MG/L; MAU/CREAT RATIO 22.7 MCG/MG (0.0-30.0)
== END ==
LOC: M SFHCPLAZ 15:36
DX: E11.65 Type 2 diabetes mellitus with hyperglycemia (principal)
CPT/HCPCS: 36415; 80053; 80061; 82043; 83036; G0463

== ENCOUNTER 2019-07-18 09:42 | Emergency (ER) | payer MEDICARE, MEDICAID ==
[~2019-07-18] VITALS: Ht 167.6 cm; Wt 121.3 kg
[~2019-07-18 09:42] MED LIST changes: -BACT800T5 PO; -CYCL-707 PO; +CYCL10TA; -EFFE75CA2 PO; -FARX1TAB3 PO
[2019-07-18 10:35] LABS: BASO # 0.1 10^3/uL (0.0-0.2); EOS # 0.1 10^3/uL (0.0-0.5); EOS % 1.6 % (0.0-3.0); HEMATOCRIT 41.4 % (36.0-47.0); HEMOGLOBIN 13.9 g/dl (12.0-15.5); LYMPH # 1.7 10^3/uL (1.5-5.0); LYMPH % 34.6 % (24.0-44.0); MEAN CORPUSCULAR HEMOGLOBIN 28.5 pg (27.0-33.0); MEAN CORPUSCULAR HGB CONC 33.6 g/dl (32.0-36.5); MEAN CORPUSCULAR VOLUME 84.8 fl (80.0-96.0); MONO # 0.3 10^3/uL (0.0-0.8); MONO % 6.1 % (0.0-5.0); NEUTROPHILS # 2.8 10^3/uL (1.5-8.5); NEUTROPHILS % 56.1 % (36.0-66.0); PLATELET COUNT, AUTOMATED 149 10^3/uL (150-450); RED BLOOD COUNT 4.88 10^6/uL (4.00-5.40); WHITE BLOOD COUNT 4.9 10^3/uL (4.0-10.0)
[2019-07-18 10:55] LABS: BLOOD UREA NITROGEN 7 MG/DL (7-18); C REACTIVE PROTEIN QUANTITATIV 0.33 MG/DL (0.00-0.30); CALCIUM LEVEL 8.4 MG/DL (8.5-10.1); CARBON DIOXIDE LEVEL 27 MEQ/L (21-32); CHLORIDE LEVEL 104 MEQ/L (98-107); CREATININE FOR GFR 0.64 MG/DL (0.55-1.30); GLOMERULAR FILTRATION RATE > 60.0 (>58); GLUCOSE, FASTING 301 MG/DL (70-100); POTASSIUM SERUM 3.9 MEQ/L (3.5-5.1); SODIUM LEVEL 138 MEQ/L (136-145)
[2019-07-18 10:57] LABS: ERYTHROCYTE SEDIMENTATION RATE 9 mm/hr (0-20)
--- NOTE | 2019-07-18 11:02 | REP ---
LEFT FOOT, FOUR VIEWS: Four views of the left foot are performed. No acute fracture or dislocation is seen. Mild soft tissue swelling diffusely. 8 mm metallic fragment projects in the region of the lower leg soft tissues. There is mild posterior calcaneal spurring. There is mild calcification of proximal plantar tendon. Tiny dorsal navicular spur is seen. Electronically Signed by Enrique Forrester MD 07/18/2019 11:44 A
--- NOTE | 2019-07-18 11:17 | REP ---
REASON: Pain and swelling. TECHNIQUE: Multiple ultrasonographic images of the deep venous structures of the thigh were obtained from the common femoral vein to the popliteal vein along with Doppler interrogation and color flow Doppler images. FINDINGS: There is no abnormal echogenic material seen within any of the visualized deep venous structures that would suggest acute thrombosis. Coaptation is unremarkable throughout. Doppler interrogation shows an expected response to respiratory variability and augmentation. The color flow images show what appears to be a normal vascular pattern throughout. IMPRESSION: There is no ultrasonographic evidence of deep venous thrombosis involving any of the visualized deep venous structures of the left thigh, as described above. Electronically Signed by Wali Davila DO 07/18/2019 11:37 A
[2019-07-18] MEDS ORDERED: KEFL500C17 PO (11:55)
[2019-07-18 12:19] VITALS: BP 132/94
--- NOTE | 2019-07-20 09:26 | ED PDOC ---
Post-Departure Follow-Up dr nelson faxed formal report of left foot film fo rfu mlg Kin Burt MD Jul 20, 2019 09:26
== END 2019-07-18 12:10 | disposition home or self-care (01) ==
LOC: M ED 09:42
DX: L03.116 Cellulitis of left lower limb (principal); R22.42 Localized swelling, mass and lump, left lower limb; Z18.89 Other specified retained foreign body fragments; M77.32 Calcaneal spur, left foot; Z91.040 Latex allergy status; Z88.8 Allergy status to other drugs, medicaments and biological substances; E11.9 Type 2 diabetes mellitus without complications; Z79.4 Long term (current) use of insulin; Z79.84 Long term (current) use of oral hypoglycemic drugs; G47.33 Obstructive sleep apnea (adult) (pediatric); K21.9 Gastro-esophageal reflux disease without esophagitis; F43.10 Post-traumatic stress disorder, unspecified

== ENCOUNTER → 2019-07-29 | Outpatient (REF) | payer MEDICARE, MEDICAID ==
[~2019-07-29] MED LIST changes: +BACT800T5 PO; +CYCL-707 PO; -CYCL10TA; +EFFE75CA2 PO; +FARX1TAB3 PO
[2019-07-29 13:24] LABS: HEMATOCRIT 44.7 % (36.0-47.0)
[2019-07-29 13:41] LABS: FOLLICLE STIMULATING HORMONE 5.4 mIU/mL; LUTEINIZING HORMONE 2.6 mIU/mL; THYROID STIMULATING HORMONE 1.57 uIU/ML (0.358-3.740)
== END ==
LOC: M PLALAB 10:06
PROVIDERS: ATTEND Nurse Practitioner Family
DX: N92.1 Excessive and frequent menstruation with irregular cycle (principal); Z79.899 Other long term (current) drug therapy
CPT/HCPCS: 36415; 83001; 83002; 84443; 85014; 85018; G0463

== ENCOUNTER → 2019-08-06 | Outpatient (CLI) | payer MEDICARE, MEDICAID ==
[~2019-08-06] MED LIST changes: -BACT800T5 PO; +CYCL-707; -CYCL-707 PO; -EFFE75CA2 PO; -FARX1TAB3 PO
--- NOTE | 2019-08-06 15:21 | REP ---
REASON: Menorrhagia. Transvesical imaging only was performed. The uterus measures 7.7 x 3.4 x 5.1 cm. The parenchymal echo pattern is within normal limits. The endometrial echo complex is within normal limits using transabdominal vesical technique measuring 5 mm in its greatest thickness. There is no free fluid in the cul-de-sac. The right ovary measures 3.2 x 1.4 x 2.5 cm. Seen either arising from exophytically or within the right ovary there is a 2.6 x 1.7 x 2.8 cm sized hypoechoic structure. The left ovary measures 3.5 x 1.8 x 2.6 cm and is within normal limits. There is no free fluid in the cul-de-sac. Urinary bladder measures approximately 9 x 4 x 8 cm. The patient refused transvaginal imaging at this time. IMPRESSION: Likely small hemorrhagic cyst, exophytic to the right ovary as described above. 2-month followup is recommended. The examination is otherwise unremarkable.
== END ==
LOC: M WHC 13:51
PROVIDERS: ATTEND Nurse Practitioner Family
DX: N92.1 Excessive and frequent menstruation with irregular cycle (principal); R93.5 Abnormal findings on diagnostic imaging of other abdominal regions, including retroperitoneum

== ENCOUNTER → 2019-10-27 | Outpatient (CLI) | payer MEDICARE, MEDICAID ==
[~2019-10-27] MED LIST changes: +BACT800T5 PO; +CIPR-249 PO; -CYCL-707; +CYCL-707 PO; +EFFE75CA2 PO; +FARX1TAB3 PO; +METO5TAB2 PO; -NOVOINJ3; +NOVOINJ3 SC; +PANT40TA29 PO; -PANT40TA3 PO; +REGL5TAB2 PO; -SUMA50TA2; +SUMA50TA2 PO; +TRUL0.5I SC
[2019-10-27 11:27] LABS: HEMOGLOBIN A1c 11.9 %
[2019-10-27 11:40] LABS: ALBUMIN 3.5 GM/DL (3.2-5.2); ALT/SGPT 38 U/L (12-78); BILIRUBIN,TOTAL 0.7 MG/DL (0.2-1.0); BLOOD UREA NITROGEN 8 MG/DL (7-18); CALCIUM LEVEL 8.5 MG/DL (8.5-10.1); CARBON DIOXIDE LEVEL 27 MEQ/L (21-32); CHLORIDE LEVEL 104 MEQ/L (98-107); CREATININE FOR GFR 0.72 MG/DL (0.55-1.30); GLOMERULAR FILTRATION RATE > 60.0 (>58); GLUCOSE, FASTING 313 MG/DL (70-100); POTASSIUM SERUM 4.1 MEQ/L (3.5-5.1); SODIUM LEVEL 135 MEQ/L (136-145); TOTAL PROTEIN 7.1 GM/DL (6.4-8.2)
[2019-10-27 11:55] LABS: MALB URINE SIEMENS 94.6 MG/L; MAU/CREAT RATIO 45.2 MCG/MG (0.0-30.0)
== END ==
LOC: M LAB 10:37
PROVIDERS: ATTEND Hospitalist
DX: E11.9 Type 2 diabetes mellitus without complications (principal)

== ENCOUNTER 2019-11-02 13:05 | Inpatient (IN) | payer MEDICARE, MEDICAID ==
[~2019-11-02 13:05] MED LIST changes: -CIPR-249 PO; -METO5TAB2 PO; -REGL5TAB2 PO; -TRUL0.5I SC
[2019-11-02] MEDS ORDERED: metFORMIN (GLUCOPHAGE) 1000 MG TABLET ONE (23:45)
[2019-11-02] MEDS ORDERED: LEVEMIR (INSULIN DETEMIR) 1 UNITS/0.01ML ONE (23:45)
[2019-11-02] MEDS ORDERED: HumaLOG INSULIN (NovoLOG) PER UNIT ONE (23:45)
[2019-11-03] MEDS ORDERED: VENLAFAXINE **XR** 37.5 MG CAPSULE ONE (04:23)
[2019-11-03] MEDS ORDERED: HumaLOG INSULIN (NovoLOG) PER UNIT ONE ×2 (04:23→11:19)
[2019-11-03] MEDS ORDERED: buPROPion **XL** TABLET 150MG (WELLBUTRIN XL) ONE (04:23)
[2019-11-03] MEDS ORDERED: metFORMIN (GLUCOPHAGE) 1000 MG TABLET ONE (04:23)
[2019-11-03] MEDS ORDERED: LEVEMIR (INSULIN DETEMIR) 1 UNITS/0.01ML ONE (04:23)
[2019-11-03] MEDS ORDERED: FLUTICASONE HFA 110 MCG 12 GM INHALER (FLOVENT) ONE (13:00)
[2019-11-03] MEDS ORDERED: METOCLOPRAMIDE 5 MG TAB ONE (13:00)
[2019-11-03] MEDS ORDERED: VENLAFAXINE 37.5 MG TAB As Ordered ONE (16:23)
[2019-11-03] MEDS ORDERED: buPROPion **XL** TABLET 150MG (WELLBUTRIN XL) As Ordered ONE (16:23)
[2019-11-03] MEDS ORDERED: HumaLOG INSULIN (NovoLOG) PER UNIT As Ordered ONE ×2 (17:01→23:19)
[2019-11-03] MEDS ORDERED: LEVEMIR (INSULIN DETEMIR) 1 UNITS/0.01ML As Ordered ONE (17:02)
[2019-11-03] MEDS ORDERED: metFORMIN (GLUCOPHAGE) 1000 MG TABLET As Ordered ONE (23:04)
[2019-11-04] MEDS ORDERED: HumaLOG INSULIN (NovoLOG) PER UNIT ONE (07:13)
[2019-11-04] MEDS ORDERED: MAALOX 30 ML SUSP *UDC ONE (08:39)
[2019-11-04] MEDS ORDERED: BISACODYL 5 MG TAB ONE (18:04)
[2019-11-04] MEDS ORDERED: ACETAMINOPHEN TAB 650MG DOSE (2X325MG) ONE (18:04)
[2019-11-04] MEDS ORDERED: metFORMIN (GLUCOPHAGE) 1000 MG TABLET As Ordered ONE (20:32)
[2019-11-04] MEDS ORDERED: HumaLOG INSULIN (NovoLOG) PER UNIT As Ordered ONE (20:33)
[2019-11-04] MEDS ORDERED: LEVEMIR (INSULIN DETEMIR) 1 UNITS/0.01ML As Ordered ONE (20:34)
[2019-11-05] MEDS ORDERED: ACETAMINOPHEN 650MG ER TAB (TYLENOL ARTHRITIS) ONE (03:30)
[2019-11-05] MEDS ORDERED: ACETAMINOPHEN TAB 650MG DOSE (2X325MG) As Ordered ONE ×2 (03:30→16:49)
[2019-11-05] MEDS ORDERED: metFORMIN (GLUCOPHAGE) 1000 MG TABLET As Ordered ONE ×2 (10:21→22:41)
[2019-11-05] MEDS ORDERED: buPROPion **XL** TABLET 150MG (WELLBUTRIN XL) As Ordered ONE (10:21)
[2019-11-05] MEDS ORDERED: VENLAFAXINE **XR** 37.5 MG CAPSULE As Ordered ONE (10:21)
[2019-11-05] MEDS ORDERED: buPROPion **XL** TABLET 150MG (WELLBUTRIN XL) ONE (10:21)
[2019-11-05] MEDS ORDERED: VENLAFAXINE **XR** 37.5 MG CAPSULE ONE (10:21)
[2019-11-05] MEDS ORDERED: LEVEMIR (INSULIN DETEMIR) 1 UNITS/0.01ML ONE ×2 (10:21→22:41)
[2019-11-05] MEDS ORDERED: metFORMIN (GLUCOPHAGE) 1000 MG TABLET ONE ×2 (10:21→22:41)
[2019-11-05] MEDS ORDERED: LEVEMIR (INSULIN DETEMIR) 1 UNITS/0.01ML As Ordered ONE ×2 (10:22→22:42)
[2019-11-05] MEDS ORDERED: HumaLOG INSULIN (NovoLOG) PER UNIT As Ordered ONE ×2 (11:56→16:46)
[2019-11-05] MEDS ORDERED: HumaLOG INSULIN (NovoLOG) PER UNIT ONE ×2 (11:56→16:46)
[2019-11-05] MEDS ORDERED: ACETAMINOPHEN TAB 650MG DOSE (2X325MG) ONE (16:46)
[2019-11-06] MEDS ORDERED: HumaLOG INSULIN (NovoLOG) PER UNIT ONE ×3 (07:13→18:06)
[2019-11-06] MEDS ORDERED: HumaLOG INSULIN (NovoLOG) PER UNIT As Ordered ONE ×3 (07:13→18:06)
[2019-11-06] MEDS ORDERED: metFORMIN (GLUCOPHAGE) 1000 MG TABLET ONE ×2 (07:48→22:00)
[2019-11-06] MEDS ORDERED: buPROPion **XL** TABLET 150MG (WELLBUTRIN XL) As Ordered ONE ×2 (07:48→12:41)
[2019-11-06] MEDS ORDERED: metFORMIN (GLUCOPHAGE) 1000 MG TABLET As Ordered ONE ×2 (07:48→22:00)
[2019-11-06] MEDS ORDERED: buPROPion **XL** TABLET 150MG (WELLBUTRIN XL) ONE ×2 (07:48→12:41)
[2019-11-06] MEDS ORDERED: LEVEMIR (INSULIN DETEMIR) 1 UNITS/0.01ML ONE ×2 (07:48→22:00)
[2019-11-06] MEDS ORDERED: LEVEMIR (INSULIN DETEMIR) 1 UNITS/0.01ML As Ordered ONE ×2 (07:52→22:02)
[2019-11-06] MEDS ORDERED: traZODone 50 MG TAB ONE (22:00)
[2019-11-06] MEDS ORDERED: traZODone 50 MG TAB As Ordered ONE (22:01)
[2019-11-07] MEDS ORDERED: HumaLOG INSULIN (NovoLOG) PER UNIT As Ordered ONE (07:00)
[2019-11-07] MEDS ORDERED: buPROPion **XL** TABLET 150MG (WELLBUTRIN XL) As Ordered ONE (08:51)
[2019-11-07] MEDS ORDERED: metFORMIN (GLUCOPHAGE) 1000 MG TABLET As Ordered ONE (08:51)
[2019-11-07] MEDS ORDERED: LEVEMIR (INSULIN DETEMIR) 1 UNITS/0.01ML As Ordered ONE (08:55)
[2019-11-07] MEDS ORDERED: HumaLOG INSULIN (NovoLOG) PER UNIT ONE ×2 (12:06→17:10)
[2019-11-07] MEDS ORDERED: CEPHALEXIN 500 MG CAP ONE ×2 (18:04→22:39)
[2019-11-07] MEDS ORDERED: LEVEMIR (INSULIN DETEMIR) 1 UNITS/0.01ML ONE (22:39)
[2019-11-07] MEDS ORDERED: metFORMIN (GLUCOPHAGE) 1000 MG TABLET ONE (22:39)
[2019-11-08] MEDS ORDERED: HumaLOG INSULIN (NovoLOG) PER UNIT As Ordered ONE ×3 (06:55→16:57)
[2019-11-08] MEDS ORDERED: HumaLOG INSULIN (NovoLOG) PER UNIT ONE ×3 (06:55→16:57)
[2019-11-08] MEDS ORDERED: FLUTICASONE HFA 220 MCG 12 GM INHALER (FLOVENT) ONE (08:45)
[2019-11-08] MEDS ORDERED: CEPHALEXIN 500 MG CAP ONE ×4 (08:45→21:48)
[2019-11-08] MEDS ORDERED: LEVEMIR (INSULIN DETEMIR) 1 UNITS/0.01ML ONE ×2 (08:45→21:41)
[2019-11-08] MEDS ORDERED: buPROPion **XL** TABLET 150MG (WELLBUTRIN XL) ONE (08:45)
[2019-11-08] MEDS ORDERED: metFORMIN (GLUCOPHAGE) 1000 MG TABLET ONE ×2 (08:45→21:41)
[2019-11-08] MEDS ORDERED: CEPHALEXIN 500 MG CAP As Ordered ONE ×3 (08:45→16:57)
[2019-11-08] MEDS ORDERED: metFORMIN (GLUCOPHAGE) 1000 MG TABLET As Ordered ONE (08:45)
[2019-11-08] MEDS ORDERED: FLUTICASONE HFA 220 MCG 12 GM INHALER (FLOVENT) As Ordered ONE (08:46)
[2019-11-08] MEDS ORDERED: buPROPion **XL** TABLET 150MG (WELLBUTRIN XL) As Ordered ONE (08:46)
[2019-11-08] MEDS ORDERED: LEVEMIR (INSULIN DETEMIR) 1 UNITS/0.01ML As Ordered ONE (08:51)
[2019-11-09] MEDS ORDERED: buPROPion **XL** TABLET 150MG (WELLBUTRIN XL) ONE (08:16)
[2019-11-09] MEDS ORDERED: LEVEMIR (INSULIN DETEMIR) 1 UNITS/0.01ML ONE ×2 (08:16→22:12)
[2019-11-09] MEDS ORDERED: CEPHALEXIN 500 MG CAP ONE ×4 (08:16→22:12)
[2019-11-09] MEDS ORDERED: metFORMIN (GLUCOPHAGE) 1000 MG TABLET ONE ×2 (08:16→22:12)
[2019-11-09] MEDS ORDERED: HumaLOG INSULIN (NovoLOG) PER UNIT ONE ×3 (08:16→16:33)
[2019-11-10] MEDS ORDERED: HumaLOG INSULIN (NovoLOG) PER UNIT ONE ×2 (06:42→11:55)
[2019-11-10] MEDS ORDERED: FLUTICASONE HFA 220 MCG 12 GM INHALER (FLOVENT) ONE (08:09)
[2019-11-10] MEDS ORDERED: buPROPion **XL** TABLET 150MG (WELLBUTRIN XL) ONE (08:09)
[2019-11-10] MEDS ORDERED: metFORMIN (GLUCOPHAGE) 1000 MG TABLET ONE (08:09)
[2019-11-10] MEDS ORDERED: CEPHALEXIN 500 MG CAP ONE (08:09)
[2019-11-10] MEDS ORDERED: LEVEMIR (INSULIN DETEMIR) 1 UNITS/0.01ML ONE (08:09)
[2019-12-24 22:13] LABS: ACETAMINOPHEN LEVEL < 2.0 UG/ML (10.0-30.0); ALBUMIN 3.3 GM/DL (3.2-5.2); ALT/SGPT 47 U/L (12-78); BILIRUBIN,DIRECT 0.2 MG/DL (0.0-0.2); BILIRUBIN,TOTAL 0.6 MG/DL (0.2-1.0); BLOOD UREA NITROGEN 7 MG/DL (7-18); CARBON DIOXIDE LEVEL 24 MEQ/L (21-32); CHLORIDE LEVEL 105 MEQ/L (98-107); CREATININE FOR GFR 0.63 MG/DL (0.55-1.30); ETHYL ALCOHOL (ETHANOL) < 0.003 % (0.000-0.010); GLOMERULAR FILTRATION RATE > 60.0 (>58); GLUCOSE, FASTING 296 MG/DL (70-100); POTASSIUM SERUM 3.8 MEQ/L (3.5-5.1); SALICYLATE LEVEL < 1.7 MG/DL (5.0-30.0); SODIUM LEVEL 140 MEQ/L (136-145); TOTAL PROTEIN 6.6 GM/DL (6.4-8.2)
[2019-12-24 22:14] LABS: AMPHETAMINES LEVEL URINE NEGATIVE (NEGATIVE); BARBITURATES URINE NEGATIVE (NEGATIVE); BENZODIAZEPINES URINE NEGATIVE (NEGATIVE); CANNABINOIDS URINE NEGATIVE (NEGATIVE); COCAINE METABOLITE URINE NEGATIVE (NEGATIVE); HCG, SERUM QUALITATIVE NEGATIVE (NEGATIVE); METHADONE URINE NEGATIVE (NEGATIVE); OPIATES URINE NEGATIVE (NEGATIVE); PHENCYCLIDINE URINE NEGATIVE (NEGATIVE)
[2019-12-25 11:02] LABS: BASO % 0.5 % (0.0-1.0); EOS # 0.1 10^3/uL (0.0-0.5); EOS % 1.2 % (0.0-3.0); HEMATOCRIT 39.9 % (36.0-47.0); HEMOGLOBIN 12.6 g/dl (12.0-15.5); LYMPH # 1.8 10^3/uL (1.5-5.0); LYMPH % 30.4 % (24.0-44.0); MEAN CORPUSCULAR HGB CONC 31.6 g/dl (32.0-36.5); MEAN CORPUSCULAR VOLUME 79.2 fl (80.0-96.0); MONO # 0.3 10^3/uL (0.0-0.8); MONO % 4.8 % (0.0-5.0); NEUTROPHILS # 3.8 10^3/uL (1.5-8.5); NEUTROPHILS % 62.8 % (36.0-66.0); PLATELET COUNT, AUTOMATED 177 10^3/uL (150-450); RED BLOOD COUNT 5.04 10^6/uL (4.00-5.40)
[2020-01-17 11:30] LABS: BLOOD UREA NITROGEN 8 MG/DL (7-18); C REACTIVE PROTEIN QUANTITATIV 5.79 MG/DL (0.00-0.30); CALCIUM LEVEL 8.6 MG/DL (8.5-10.1); CARBON DIOXIDE LEVEL 28 MEQ/L (21-32); CHLORIDE LEVEL 102 MEQ/L (98-107); CREATININE FOR GFR 0.74 MG/DL (0.55-1.30); GLOMERULAR FILTRATION RATE > 60.0 (>58); GLUCOSE, FASTING 244 MG/DL (70-100); POTASSIUM SERUM 3.6 MEQ/L (3.5-5.1); SODIUM LEVEL 135 MEQ/L (136-145)
[2020-01-29] MEDS ORDERED: METO5TAB2 PO (08:52)
[2020-01-29] MEDS ORDERED: BUPR300T92 PO (08:52)
[2020-01-30 12:50] LABS: BASO % 0.4 % (0.0-1.0); EOS % 0.7 % (0.0-3.0); HEMOGLOBIN 11.9 g/dl (12.0-15.5); LYMPH # 1.3 10^3/uL (1.5-5.0); LYMPH % 28.7 % (24.0-44.0); MEAN CORPUSCULAR HEMOGLOBIN 25.1 pg (27.0-33.0); MEAN CORPUSCULAR HGB CONC 31.3 g/dl (32.0-36.5); MONO # 0.4 10^3/uL (0.0-0.8); MONO % 9.7 % (0.0-5.0); NEUTROPHILS # 2.7 10^3/uL (1.5-8.5); NEUTROPHILS % 60.3 % (36.0-66.0); PLATELET COUNT, AUTOMATED 158 10^3/uL (150-450); RED BLOOD COUNT 4.75 10^6/uL (4.00-5.40); WHITE BLOOD COUNT 4.5 10^3/uL (4.0-10.0)
--- NOTE | 2020-02-10 11:13 | MHDSPDOC ---
[facility] Discharge Summary Discharge Summary DATE OF ADMISSION: Nov 02, 2019 at 18:45 DATE OF DISCHARGE: Nov 11, 2019 at 10:07 DISCHARGE DIAGNOSES: F43.10 Post-traumatic stress disorder, unspecified CONSULTANTS INVOLVED:[ None (basic hospitalist screening)] REASON FOR ADMISSION & TREATMENT AND PROGRESS ON THE UNIT : Dara was admitted to the inpatient mental health unit after having suicidal thoughts. She did well previously on Wellbutrin but had insurance troubles making it difficult for her to get her medications. Patient reported that she wanted to try Wellbutrin again. She was placed on Wellbutrin, increased to a total of 300 mg daily with very positive effect.Patient did well. She was engaged and was eventually discharged back home with a supply of her medications. MEDICAL HISTORY: Patient has a history of depression and PTSD. DISCHARGE ASSESSMENT:[improved] Legal status considerations: The patient at the time of discharge did not meet criteria for involuntary admission/extension due to having a [normal] mental status exam, [fair] insight into the situation, They are engaged in the discharge process, as well as being friendly and amenable in behavioral control and havent been engaging in any observed concerning behavior or ideation recently. They decline voluntary extension/admission at this time and must be discharged in [place], as Im unable to make a case for holding the patient against their will. They may have historical risk factors of admissions and other interactions with psychiatry however, those are not modifiable from a clinical perspective. The patient will need to be discharged in good [place]. MENTAL STATUS EXAMINATION ON DISCHARGE: [General: Well dressed with good hygiene Speech: Spontaneous and fluid Thought processes: Linear and logical Thought content: Future orientated Abstract reasoning, and computation: Intact Description of associations: Intact Description of abnormal or psychotic thoughts:Denies any suicidal or homicidal ideation. Denies any auditory or visual hallucinations. Does not appear to be responding to internal stimuli. Does not appear to be endorsing any bizarre or paranoid ideation. Judgment: fair Insight: fair Orientation: Alert and orientated 3 Recent and remote memory: Intact Attention span and concentration: Intact Fund of knowledge: Adequate Mood: "okay" Affect: Euthymic with a full range] PLAN/FOLLOWUP ARRANGEMENTS: Follow up appointments made (PCP and MH in 5 days of D/C date) and safety plan completed. Safety Planning aspects completed prior to discharge [Medication supplies limited to 7 days with 4 refills to prevent accumulation to OD] [Family contact completed, educated on safe practices, instructed on removal and mitigation of dangerous means] [RN reviewed crisis hotline information and other aspects to empower patient to access care in interim before next appointment.] The amount of time spent in the coordination of care for this patient was approximately 30 minutes. Medications Scheduled Bupropion HCl (Bupropion Xl) 300 Mg Tab.er.24h, 300 MG PO DAILY, (Reported) Dulaglutide (Trulicity) 1.5 Mg/0.5 Ml Pen.injctr, 1.5 MG SC 1XWK, (Reported) SUNDAYS Fluticasone Furoate (Arnuity Ellipta) 100 Mcg/Act Inh, 1 PUFF INH DAILY, (Reported) Insulin Aspart (Novolog Flexpen) 100 Unit/1 Ml Insuln.pen, 1 DOSE SC AC, (Reported) PER SLIDING SCALE. NOT TO GO OVER 10 UNITS Insulin Glargine,Hum.rec.anlog (Basaglar Kwikpen U-100) 100 Unit/Ml Inj, 70 UNITS SC QHS, (Reported) Metformin HCl (Metformin HCl) 1,000 Mg Tab, 1,000 MG PO BID, (Reported) Metoclopramide HCl (Metoclopramide HCl) 5 Mg Tablet, 5 MG PO BID, (Reported) BEFORE MEALS Scheduled PRN Albuterol Sulfate (Ventolin Hfa) 108 Mcg/Act Aer, 2 PUFF INH QID PRN for SHORTNESS OF BREATH, (Reported) Cyclobenzaprine HCl (Cyclobenzaprine HCl) 10 Mg Tablet, 10 MG PO TID PRN for MUSCLE SPASMS, (Reported) Sumatriptan Succinate (Sumatriptan Succinate) 50 Mg Tablet, 50 MG PO DAILY PRN for MIGRAINE, (Reported) Allergies Coded Allergies: canagliflozin (Verified Allergy, Unknown, 01/29/20) latex (Verified Allergy, Unknown, 01/29/20) gabapentin (Verified Adverse Reaction, Unknown, n/v, 01/29/20) MARIZA YOON DO Feb 10, 2020 11:13
== END 2019-11-11 10:07 | disposition home or self-care (01) | DRG 882 ==
LOC: M ED 13:05 → M PSY 18:45
PROVIDERS: ADMIT Psychiatry & Neurology Addiction Medicine; ATTEND Psychiatry & Neurology Addiction Medicine
DX: F43.12 Post-traumatic stress disorder, chronic (principal); R45.851 Suicidal ideations; F33.1 Major depressive disorder, recurrent, moderate; J45.909 Unspecified asthma, uncomplicated; E11.43 Type 2 diabetes mellitus with diabetic autonomic (poly)neuropathy; M79.7 Fibromyalgia; E66.9 Obesity, unspecified; F41.9 Anxiety disorder, unspecified; Z79.4 Long term (current) use of insulin; Z79.899 Other long term (current) drug therapy

== ENCOUNTER → 2020-01-06 | Outpatient (CLI) | payer MEDICARE, MEDICAID ==
[~2020-01-06] MED LIST changes: +CIPR-249 PO; +METO5TAB2 PO; +REGL5TAB2 PO; +TRUL0.5I SC
--- NOTE | 2020-01-14 14:13 | REP ---
PELVIC SONOGRAPHY HISTORY: Right ovarian cyst. FINDINGS: Transabdominal scanning is performed. Visualized bladder nazario are smooth. Urine filled bladder volume is calculated at 214 mL. The patient declined transvaginal scanning. Uterine dimensions are normal measured at 8.6 x 4.4 x 5.4 cm. Endometrial echo is 0.8 cm thick and centrally placed. No focal uterine mass is seen. The right ovary measures 4.2 x 1.9 x 2.2 cm. There is a slightly hyperechoic area in the right ovary measuring 2.3 x 1.0 x 1.5 cm. This may be hemorrhagic cyst or small dermoid. Left ovary measures 2.4 x 1.9 x 2.4 cm. There is a simple paraovarian cyst in the left adnexa measuring 1.8 x 1.5 x 0.9 cm. IMPRESSION: 1.8 cm paraovarian cyst left ovary. Hemorrhagic cyst versus small dermoid right ovary 2.3 cm in diameter. This is not the extra-ovarian hypoechoic area described on the 08/06/2019 study. Hemorrhagic follicle cyst is the favored etiology. MTDD
== END ==
LOC: M WHC 13:28
PROVIDERS: ATTEND Obstetrics & Gynecology
DX: N83.202 Unspecified ovarian cyst, left side (principal); N83.201 Unspecified ovarian cyst, right side

== ENCOUNTER 2020-01-18 21:45 | Emergency (ER) | payer MEDICARE, MEDICAID ==
[~2020-01-18 21:45] MED LIST changes: -CIPR-249 PO; -METO5TAB2 PO; -REGL5TAB2 PO; -TRUL0.5I SC
[2020-01-18 21:57] VITALS: BP 163/79
[2020-01-18] MEDS ORDERED: CIPR-249 PO (22:06)
[2020-01-18] MEDS ORDERED: CIPROFLOXACIN 500MG TABLET PO ONE (22:15)
[2020-01-29] MEDS ORDERED: METO5TAB2 PO (08:52)
[2020-01-29] MEDS ORDERED: BUPR300T92 PO (08:52)
== END 2020-01-18 22:48 | disposition home or self-care (01) ==
LOC: M ED 21:45
DX: H60.91 Unspecified otitis externa, right ear (principal); E11.9 Type 2 diabetes mellitus without complications; J45.909 Unspecified asthma, uncomplicated; Z79.3 Long term (current) use of hormonal contraceptives; Z79.899 Other long term (current) drug therapy; Z88.8 Allergy status to other drugs, medicaments and biological substances; Z91.040 Latex allergy status

== ENCOUNTER → 2020-01-22 | Outpatient (CLI) | payer MEDICARE, MEDICAID ==
[~2020-01-22] MED LIST changes: +ANEC4CRE3 TOP; +ASPI81TA26 PO; +CIPR-249 PO; +METO5TAB2 PO; +REGL5TAB2 PO; +TRUL0.5I SC
[2020-01-22 12:09] LABS: HEMOGLOBIN A1c 10.1 %
== END ==
LOC: M LAB 10:36
PROVIDERS: ATTEND Hospitalist
DX: E11.9 Type 2 diabetes mellitus without complications (principal)
CPT/HCPCS: 36415; 83036; G0463

== ENCOUNTER 2020-01-30 10:38 | Observation (INO) | payer MEDICARE, MEDICAID ==
[~2020-01-30] VITALS: Ht 167.6 cm; Wt 114.6 kg
[2020-01-30] MEDS: buPROPion **XL** TABLET 150MG (WELLBUTRIN XL) PO SCH (09:00)
[~2020-01-30 10:38] MED LIST changes: -ANEC4CRE3 TOP; -ASPI81TA26 PO; -REGL5TAB2 PO; -TRUL0.5I SC
[2020-01-30] MEDS ORDERED: REGL5TAB2 PO (11:20)
[2020-01-30 12:11] LABS: BASO # 0.1 10^3/uL (0.0-0.2); BASO % 1.1 % (0.0-1.0); EOS # 0.2 10^3/uL (0.0-0.5); EOS % 2.7 % (0.0-3.0); HEMATOCRIT 43.3 % (36.0-47.0); HEMOGLOBIN 13.7 g/dl (12.0-15.5); LYMPH # 2.6 10^3/uL (1.5-5.0); LYMPH % 35.8 % (24.0-44.0); MEAN CORPUSCULAR HEMOGLOBIN 24.5 pg (27.0-33.0); MEAN CORPUSCULAR HGB CONC 31.6 g/dl (32.0-36.5); MEAN CORPUSCULAR VOLUME 77.3 fl (80.0-96.0); MONO # 0.4 10^3/uL (0.0-0.8); MONO % 5.6 % (0.0-5.0); NEUTROPHILS # 3.9 10^3/uL (1.5-8.5); NEUTROPHILS % 54.4 % (36.0-66.0); PLATELET COUNT, AUTOMATED 212 10^3/uL (150-450); WHITE BLOOD COUNT 7.2 10^3/uL (4.0-10.0)
[2020-01-30 12:21] LABS: INR 0.89; PROTHROMBIN TIME 12.2 SECONDS (12.5-14.3)
[2020-01-30 12:22] LABS: PARTIAL THROMBOPLASTIN TIME 23.9 SECONDS (24.2-38.5)
--- NOTE | 2020-01-30 12:25 | REP ---
INDICATION: R/O DVT COMPARISON: None. TECHNIQUE: Forrester scale and color Doppler evaluation using linear high frequency transducer. FINDINGS: Ultrasound examination of the left lower extremity deep venous structures from the common femoral vein to the popliteal vein demonstrates normal compressibility flow and wave patterns in response to respiration and augmentation. There is no evidence for deep venous thrombosis. IMPRESSION: No evidence for deep venous thrombosis. <Electronically signed by Domo Ortiz > 01/30/20 [id number]
[2020-01-30 12:33] LABS: ERYTHROCYTE SEDIMENTATION RATE 10 mm/hr (0-20)
[2020-01-30 12:53] LABS: ALBUMIN 3.8 GM/DL (3.2-5.2); ALT/SGPT 40 U/L (12-78); BILIRUBIN,DIRECT < 0.1 MG/DL (0.0-0.2); BILIRUBIN,TOTAL 0.5 MG/DL (0.2-1.0); C REACTIVE PROTEIN QUANTITATIV < 0.30 MG/DL (0.00-0.30); TOTAL PROTEIN 7.4 GM/DL (6.4-8.2)
[2020-01-30] MEDS ORDERED: NS 1,000 ML IV ONE (13:30)
[2020-01-30] MEDS ORDERED: TRUL0.5I SC (17:01)
[2020-01-30] MEDS ORDERED: SUMAtriptan SUCCINATE 25 MG TAB PO PRN (17:45)
[2020-01-30] MEDS ORDERED: ALBUTEROL 90 MCG/ACT 8GM HFA INHALER INH PRN (17:45)
[2020-01-30] MEDS ORDERED: GLUCOSE 4GM CHEW TABLET PO PRN (17:45)
[2020-01-30] MEDS ORDERED: DEXTROSE 50% 50 ML SYRINGE IV PRN (17:45)
[2020-01-30] MEDS ORDERED: GLUCAGON INJ 1MG VIAL SC PRN (17:45)
[2020-01-30] MEDS ORDERED: CYCLOBENZAPRINE 10MG TABLET PO PRN (17:45)
[2020-01-30 18:00] VITALS: BP 149/92
[2020-01-30] MEDS: METOCLOPRAMIDE 5 MG TAB PO SCH (18:00)
[2020-01-30] MEDS ORDERED: IBUPROFEN 400 MG TAB PO PRN (18:00)
--- NOTE | 2020-01-30 18:20 | HPEPDOC ---
General Date of Admission Jan 30, 2020 at 10:39 Date of Service: Jan 30, 2020 Attending Physician: BERTA WALDEN DO Chief Complaint The patient is a 39-year-old female admitted with a reason for visit of Charcot Foot Due To Diabetes Mellitus. Source: Patient Exam Limitations: No limitations History of Present Illness Patient is a 39 year old female with obesity, COPD, fibromyalgia, DM, and DJD here with acute left foot pain. She has Charcot's foot and has been following with Podiatry, Dr. Rose. She is supposed to be non-weight bearing. Yesterday, she ambulated on her foot. Then at 4AM today, she developed acute pain and sw elling of the left foot. She called Dr. Rose's office who recommended that she come to the ED for evaluation. XR of foot was obtained and results were discussed with Dr. Rose. Patient will need to be non-weight bearing on her left foot or else her left foot would further worsen. Otherwise when I spoke with the patient, she denies any fever/chills, abdominal pain, diarrhea, constipation, or dysuria. She has costochondritis which sometimes cause chest pain. She sometimes have dyspnea from her COPD, but not any worse today. Home Medications Scheduled Bupropion HCl (Bupropion Xl) 300 Mg Tab.er.24h, 300 MG PO DAILY, (Reported) Dulaglutide (Trulicity) 1.5 Mg/0.5 Ml Pen.injctr, 1.5 MG SC 1XWK, (Reported) SUNDAYS Fluticasone Furoate (Arnuity Ellipta) 100 Mcg/Act Inh, 1 PUFF INH DAILY, (Reported) Insulin Aspart (Novolog Flexpen) 100 Unit/1 Ml Insuln.pen, 1 DOSE SC AC, (Reported) PER SLIDING SCALE. NOT TO GO OVER 10 UNITS Insulin Glargine,Hum.rec.anlog (Basaglar Kwikpen U-100) 100 Unit/Ml Inj, 70 UNITS SC QHS, (Reported) Metformin HCl (Metformin HCl) 1,000 Mg Tab, 1,000 MG PO BID, (Reported) Metoclopramide HCl (Metoclopramide HCl) 5 Mg Tablet, 5 MG PO BID, (Reported) BEFORE MEALS Scheduled PRN Albuterol Sulfate (Ventolin Hfa) 108 Mcg/Act Aer, 2 PUFF INH QID PRN for SHORTNESS OF BREATH, (Reported) Cyclobenzaprine HCl (Cyclobenzaprine HCl) 10 Mg Tablet, 10 MG PO TID PRN for MUSCLE SPASMS, (Reported) Sumatriptan Succinate (Sumatriptan Succinate) 50 Mg Tablet, 50 MG PO DAILY PRN for MIGRAINE, (Reported) Allergies Coded Allergies: canagliflozin (Verified Allergy, Unknown, 01/29/20) latex (Verified Allergy, Unknown, 01/29/20) gabapentin (Verified Adverse Reaction, Unknown, n/v, 01/29/20) Past Medical History Medical History 1. Obesity. 2. Chronic obstructive pulmonary disease. 3. Fibromyalgia. 4. Migraine. 5. Diabetes mellitus. 6. Sleep apnea 7. Asthma. 8. Depression, anxiety. 9. Osteoarthritis. 10. Degenerative disk disease 11. Polycystic ovary disease. 12. Costochondritis Surgical History 1. History of carpal tunnel release. 2. Back surgery. 3. Tonsillectomy 4. Uvulectomy. 5. Cholecystectomy. Family History Reports that her father and mother are alive and healthy. Denies any medical problems in her parents. Social History * Smoker: former Smoker (quit 5 months ago, smoked on and off for 20 years, less than one pack per day) Alcohol: rarely Drugs: denies A-FIB/CHADSVASC A-FIB History Current/History of A-Fib/PAF?: No Review of Systems Constitutional: Denies: Chills, Fever Eyes: Denies: Vision change Skin: Denies: Rash Pulmonary: Reports: Dyspnea (intermittent, not worse than before) Cardiovascular: Reports: Chest Pain (costochondritis) Gastrointestinal: Denies: Abdominal Pain, Diarrhea, Constipation Genitourinary: Denies: Dysuria Hematologic: Reports: Bruising Endocrine: Denies: Polyphagia Musculoskeletal: Reports: Back Pain, Foot Pain (left) Neurological: Reports: Numbness (paresthesia in her left foot) Physical Examination General Exam: Positive: Alert, Cooperative Eye Exam: Positive: EOMI; Negative: Sclera icteric ENT Exam: Positive: Tongue Midline, Other ENT (no uvula) Neck Exam: Positive: Supple Chest Exam: Positive: Clear to auscultation; Negative: Wheezing Heart Exam: Positive: Rate Normal, Regular Rhythm Abdomen Exam: Positive: Normal bowel sounds, Soft; Negative: Tenderness Extremity Exam: Positive: Tenderness (left foot), Swelling (left foot) Neuro Exam: Positive: Cranial Nerves 3-12 NL; Negative: Normal Gait (nonweightbearing on left foot) Psych Exam: Positive: Mental status NL, Mood NL Vital Signs Vital Signs Date Time Temp Pulse Resp B/P (MAP) Pulse Ox O2 Delivery O2 Flow Rate FiO2 01/30/20 17:42 98.2 87 17 149/85 (106) 100 Room Air Laboratory Data Labs 24H Laboratory Tests 2 01/30/20 11:59: Immature Granulocyte % (Auto) 0.4, Neutrophils (%) (Auto) 54.4, Lymphocytes (%) (Auto) 35.8, Monocytes (%) (Auto) 5.6H, Eosinophils (%) (Auto) 2.7, Basophils (%) (Auto) 1.1H, Neutrophils # (Auto) 3.9, Lymphocytes # (Auto) 2.6, Monocytes # (Auto) 0.4, Eosinophils # (Auto) 0.2, Basophils # (Auto) 0.1, Nucleated Red Blood Cells % (auto) 0.0, Erythrocyte Sedimentation Rate 10, Prothrombin Time 12.2, Prothromb Time International Ratio 0.89, Activated Partial Thromboplast Time 23.9L, Lactic Acid Level 2.9*H, Total Bilirubin 0.5, Direct Bilirubin < 0.1, Aspartate Amino Transf (AST/SGOT) 31, Alanine Aminotransferase (ALT/SGPT) 40, Alkaline Phosphatase 117, C-Reactive Protein, Quantitative < 0.30, Total Protein 7.4, Albumin 3.8, Albumin/Globulin Ratio 1.1L 01/30/20 12:08: POC Glucose (Misc Panel) 357H, POC Sodium (Misc Panel) 135L, POC Potassium (Misc Panel) 4.0, POC Chloride (Misc Panel) 102, POC Total CO2 (Misc Panel) 18.0L, POC Blood Urea Nitrogen (Misc Panel 9, POC Ionized Calcium (Misc Panel) 4.6, POC Creatinine (Misc Panel) 0.4L, POC Hematocrit (Misc Panel) 45.0 01/30/20 12:10: POC Beta HCG, Quantitative < 5.0 CBC/BMP Laboratory Tests 01/30/20 11:59 Assessment/Plan Patient is a 39-year-old female with poorly controlled diabetes mellitus who is here for acute swelling and pain in her left foot. She has a history of Charcot foot and is supposed to be nonweightbearing. Yesterday she ambulated in her foot and now has developed acute swelling and pain. We will have physical therapy work with her and help her be nonweightbearing on her left foot Plan / VTE VTE Prophylaxis Ordered?: Yes Plan Plan 1. Acute flare of diabetic neuropathic arthroplasty (Charcot's foot) Patient has acute erythema, warmth, and swelling of her left foot Spoke with Dr. Rose, patient is supposed to be nonweightbearing Physical therapy ordered 2. Uncontrolled diabetes Patient's HbA1c recently checked on 01/22/2020 HbA1c is 10.1% Patient will be on sliding scale insulin and Levemir 3. History of costochondritis No active chest pain at this time Ibuprofen as needed for pain 4. Lactic acidosis May be secondary to metformin use Patient had fluid bolus in the ED 5. Degenerative disc disease Patient is on cyclobenzaprine as needed Ibuprofen as needed for pain 6. Possible gastroparesis Currently being evaluated for diabetic gastroparesis Continue metoclopramide 7. Migraines No migraine at this time Symmetric and as needed 8. COPD Stable We will substitute her ICS with fluticasone propionate Continue albuterol as needed 9. DVT prophylaxis BERTA Ramires DO Jan 30, 2020 18:20
[2020-01-30 20:13] VITALS: BP 128/74
[2020-01-30] MEDS: FLUTICASONE HFA 110 MCG 12 GM INHALER (FLOVENT) INH SCH (20:29)
[2020-01-30] MEDS ORDERED: HumaLOG INSULIN (NovoLOG) PER UNIT SC SCH (21:00)
[2020-01-30] MEDS ORDERED: LEVEMIR (INSULIN DETEMIR) 1 UNITS/0.01ML SC SCH (21:00)
[2020-01-31 05:37] VITALS: BP 125/65
[2020-01-31 06:18] LABS: HEMATOCRIT 39.2 % (36.0-47.0); MEAN CORPUSCULAR HGB CONC 30.6 g/dl (32.0-36.5); MEAN CORPUSCULAR VOLUME 78.4 fl (80.0-96.0); PLATELET COUNT, AUTOMATED 190 10^3/uL (150-450); WHITE BLOOD COUNT 5.3 10^3/uL (4.0-10.0)
[2020-01-31 06:46] LABS: BLOOD UREA NITROGEN 11 MG/DL (7-18); CALCIUM LEVEL 8.7 MG/DL (8.5-10.1); CARBON DIOXIDE LEVEL 25 MEQ/L (21-32); CHLORIDE LEVEL 107 MEQ/L (98-107); CREATININE FOR GFR 0.57 MG/DL (0.55-1.30); GLOMERULAR FILTRATION RATE > 60.0 (>58); GLUCOSE, FASTING 205 MG/DL (70-100); POTASSIUM SERUM 3.8 MEQ/L (3.5-5.1); SODIUM LEVEL 136 MEQ/L (136-145)
[2020-01-31] MEDS: buPROPion **XL** TABLET 150MG (WELLBUTRIN XL) PO SCH (08:09)
[2020-01-31] MEDS: METOCLOPRAMIDE 5 MG TAB PO SCH (08:09)
[2020-01-31] MEDS: HumaLOG INSULIN (NovoLOG) PER UNIT SC SCH ×2 (08:10→12:14)
[2020-01-31] MEDS: FLUTICASONE HFA 110 MCG 12 GM INHALER (FLOVENT) INH SCH (08:23)
[2020-01-31] MEDS ORDERED: INFLUENZA QUADRIVALENT PF VACCINE 0.5ML SYRINGE IM ONE (09:00)
[2020-01-31] MEDS ORDERED: ENOXAPARIN 40MG/0.4ML SYRINGE (J1650 PER 10MG) SC SCH (09:00)
[2020-01-31] MEDS ORDERED: BUDESONIDE 0.25 MG/2 ML INHALATION SUSPENSION INH SCH (20:00)
--- NOTE | 2020-01-31 21:34 | DS.PDOC ---
Discharge Summary General Date of Admission Jan 30, 2020 at 10:39 Date of Discharge Jan 31, 2020 Attending Physician: BERTA WALDEN DO Discharge Summary PROCEDURES PERFORMED DURING STAY: None ADMITTING DIAGNOSES: 1. Acute flare of diabetic neuropathic arthroplasty (Charcot's foot) 2. Uncontrolled diabetes 3. History of costochondritis 4. Lactic acidosis 5. Degenerative disc disease 6. Possible gastroparesis 7. Migraines 8. COPD DISCHARGE DIAGNOSES: 1. Acute flare of diabetic neuropathic arthroplasty (Charcot's foot) 2. Uncontrolled diabetes 3. History of costochondritis 4. Lactic acidosis 5. Degenerative disc disease 6. Possible gastroparesis 7. Migraines 8. COPD COMPLICATIONS/CHIEF COMPLAINT: Charcot Foot Due To Diabetes Mellitus. HISTORY OF PRESENT ILLNESS: Patient is a 39 year old female with obesity, COPD, fibromyalgia, DM, and DJD here with acute left foot pain. She has Charcot's foot and has been following with Podiatry, Dr. Rose. She is supposed to be non-we ight bearing. Yesterday, she ambulated on her foot. Then at 4AM today, she developed acute pain and swelling of the left foot. She called Dr. Rose's office who recommended that she come to the ED for evaluation. XR of foot was obtained and results were discussed with Dr. Rose. Patient will need to be non- weight bearing on her left foot or else her left foot would further worsen. Otherwise when I spoke with the patient, she denies any fever/chills, abdominal pain, diarrhea, constipation, or dysuria. She has costochondritis which sometimes cause chest pain. She sometimes have dyspnea from her COPD, but not any worse today. HOSPITAL COURSE: Physical therapy worked with the patient and explained that the process for obtaining power scooter/wheelchair has to be done in the outpatient setting. She explained that due to her body habitus, using a walker for non- weightbearing on left leg puts a lot of pain and pressure on the right foot and back. Using a manual wheelchair would be difficult to go up and down hills which is required for her. She does not have a vehicle for grocery shopping. Due to her possible gastroparesis, she declined Meals on Wheels because she needs to be on a specialized diet. Otherwise today, she denied any fever or chills, chest pain, abdominal pain, dysuria. She felt ready for home and was subsequently discharged DISCHARGE MEDICATIONS: Please see below. ALLERGIES: Please see below. PHYSICAL EXAMINATION ON DISCHARGE: VITAL SIGNS: Please see below. GENERAL: Comfortable, in no apparent distress. HEENT: Head normocephalic/atraumatic, EOMI, sclera clear. NECK: Supple RESPIRATORY: Lungs clear to auscultation bilaterally, no wheezing CARDIOVASCULAR: Regular rate and rhythm. ABDOMEN: Soft, nontender, no guarding or rebound tenderness. Normal bowel sounds. MUSCLE SKELETAL: Left foot swelling and tenderness NEUROLOGICAL: CN 312 grossly intact, no focal deficits noted. PSYCHOLOGICAL: Normal mood and affect LABORATORY DATA: Please see below. IMAGING: Left leg ultrasound No evidence for deep venous thrombosis. PROGNOSIS: Stable ACTIVITY: Non-weightbearing on left leg DIET: Consistent carbohydrates DISCHARGE PLAN: Home DISPOSITION: , Self-Care. DISCHARGE INSTRUCTIONS: 1. Keep appointments with podiatry and PCP . DISCHARGE CONDITION: Stable. Total time spent on discharge planning, discharge summary, and medication reconciliation: 35 minutes Vital Signs/I&Os Vital Signs Date Time Temp Pulse Resp B/P (MAP) Pulse Ox O2 Delivery O2 Flow Rate FiO2 01/31/20 05:37 97.7 77 18 125/65 (85) 97 Room Air I&O- Last 24 Hours up to 6 AM 01/31/20 06:00 Intake Total 2200 ml Output Total 0 ml Balance 2200 ml Laboratory Data Labs 24H Laboratory Tests 2 01/31/20 05:55: Nucleated Red Blood Cells % (auto) 0.0, Anion Gap 4L, Glomerular Filtration Rate > 60.0, Calcium Level 8.7 01/31/20 11:49: Bedside Glucose (Misc Panel) 286H 01/31/20 12:21: Coronavirus (COVID-19)(PCR) NEGATIVE CBC/BMP Laboratory Tests 01/31/20 05:55 FSBS Laboratory Tests Test 01/31/20 11:49 Range/Units Bedside Glucose (Misc Panel) 286 70-105 MG/DL Discharge Medications Scheduled Bupropion HCl (Bupropion Xl) 300 Mg Tab.er.24h, 300 MG PO DAILY, (Reported) Dulaglutide (Trulicity) 1.5 Mg/0.5 Ml Pen.injctr, 1.5 MG SC 1XWK, (Reported) SUNDAYS Fluticasone Furoate (Arnuity Ellipta) 100 Mcg/Act Inh, 1 PUFF INH DAILY, (Reported) Insulin Aspart (Novolog Flexpen) 100 Unit/1 Ml Insuln.pen, 1 DOSE SC AC, (Reported) PER SLIDING SCALE. NOT TO GO OVER 10 UNITS Insulin Glargine,Hum.rec.anlog (Basaglar Kwikpen U-100) 100 Unit/Ml Inj, 70 UNITS SC QHS, (Reported) Metformin HCl (Metformin HCl) 1,000 Mg Tab, 1,000 MG PO BID, (Reported) Metoclopramide HCl (Metoclopramide HCl) 5 Mg Tablet, 5 MG PO BID, (Reported) BEFORE MEALS Scheduled PRN Albuterol Sulfate (Ventolin Hfa) 108 Mcg/Act Aer, 2 PUFF INH QID PRN for SHORTNESS OF BREATH, (Reported) Cyclobenzaprine HCl (Cyclobenzaprine HCl) 10 Mg Tablet, 10 MG PO TID PRN for MUSCLE SPASMS, (Reported) Sumatriptan Succinate (Sumatriptan Succinate) 50 Mg Tablet, 50 MG PO DAILY PRN for MIGRAINE, (Reported) Allergies Coded Allergies: canagliflozin (Verified Allergy, Unknown, 01/29/20) latex (Verified Allergy, Unknown, 01/29/20) gabapentin (Verified Adverse Reaction, Unknown, n/v, 01/29/20) BERTA WALDEN DO Jan 31, 2020 21:34
== END 2020-01-31 12:55 | disposition home or self-care (01) ==
LOC: M ED 10:38 → M ED INP 10:39 → ENRESERV 17:30 → M MS5PR 17:57
PROVIDERS: ADMIT Internal Medicine; ATTEND Internal Medicine
DX: M14.672 Charcot's joint, left ankle and foot (principal); E87.2 Acidosis; M79.672 Pain in left foot; G43.909 Migraine, unspecified, not intractable, without status migrainosus; J44.9 Chronic obstructive pulmonary disease, unspecified; E66.9 Obesity, unspecified; M79.7 Fibromyalgia; G47.33 Obstructive sleep apnea (adult) (pediatric); F41.9 Anxiety disorder, unspecified; F32.9 Major depressive disorder, single episode, unspecified; Z87.891 Personal history of nicotine dependence; Z91.040 Latex allergy status; Z88.8 Allergy status to other drugs, medicaments and biological substances; Z79.4 Long term (current) use of insulin; Z79.84 Long term (current) use of oral hypoglycemic drugs; Z79.899 Other long term (current) drug therapy
CPT/HCPCS: 36415; 73630; 80047; 80048; 80076; 83605; 84702; 85025; 85027; 85610; 85652; 85730; 86140; 90686; 93971; 94640; 94664; 96360; 96372; 97161; 99284; G0008; G0378; J1650; U0002

== ENCOUNTER 2020-03-12 10:36 | Emergency (ER) | payer MEDICARE, MEDICAID ==
[~2020-03-12] VITALS: Ht 167.6 cm; Wt 113.8 kg
[2020-03-12 10:36] VITALS: BP 145/79
[~2020-03-12 10:36] MED LIST changes: +REGL5TAB2 PO; +TRUL0.5I SC
[2020-03-12] MEDS ORDERED: BACT800T5 PO (11:23)
[2020-03-12] MEDS ORDERED: ASPI81TA26 PO (19:17)
[2020-03-12] MEDS ORDERED: ANEC4CRE3 TOP (21:56)
== END 2020-03-12 11:33 | disposition home or self-care (01) ==
LOC: M ED 10:36
DX: L03.811 Cellulitis of head [any part, except face] (principal); L02.811 Cutaneous abscess of head [any part, except face]; M79.7 Fibromyalgia; E11.9 Type 2 diabetes mellitus without complications; I10 Essential (primary) hypertension; J45.909 Unspecified asthma, uncomplicated; G43.909 Migraine, unspecified, not intractable, without status migrainosus; G47.30 Sleep apnea, unspecified; K21.9 Gastro-esophageal reflux disease without esophagitis; E28.2 Polycystic ovarian syndrome; K76.0 Fatty (change of) liver, not elsewhere classified; F41.9 Anxiety disorder, unspecified; F32.9 Major depressive disorder, single episode, unspecified; F43.10 Post-traumatic stress disorder, unspecified; Z88.8 Allergy status to other drugs, medicaments and biological substances; Z91.040 Latex allergy status; Z79.4 Long term (current) use of insulin; Z79.899 Other long term (current) drug therapy

== ENCOUNTER 2020-03-12 19:03 | Emergency (ER) | payer MEDICARE, MEDICAID ==
[~2020-03-12] VITALS: Ht 167.6 cm; Wt 114.6 kg
[2020-03-12] MEDS ORDERED: ASPI81TA26 PO (19:17)
[2020-03-12] MEDS ORDERED: ANEC4CRE3 TOP (21:56)
[2020-03-12] MEDS ORDERED: LIDOCAINE 4% CREAM 5GM (LMX4) TOP ONE (22:00)
[2020-03-12] MEDS ORDERED: NORCO 5/325MG TABLET (BULK FOR ED) PO ONE (22:00)
[2020-03-12 22:08] VITALS: BP 167/93
== END 2020-03-12 22:33 | disposition home or self-care (01) ==
LOC: M ED 19:03
DX: L03.811 Cellulitis of head [any part, except face] (principal); L02.811 Cutaneous abscess of head [any part, except face]; M79.7 Fibromyalgia; E11.9 Type 2 diabetes mellitus without complications; I10 Essential (primary) hypertension; J45.909 Unspecified asthma, uncomplicated; G43.909 Migraine, unspecified, not intractable, without status migrainosus; G47.30 Sleep apnea, unspecified; K21.9 Gastro-esophageal reflux disease without esophagitis; E28.2 Polycystic ovarian syndrome; K76.0 Fatty (change of) liver, not elsewhere classified; F41.9 Anxiety disorder, unspecified; F32.9 Major depressive disorder, single episode, unspecified; F43.10 Post-traumatic stress disorder, unspecified; Z88.8 Allergy status to other drugs, medicaments and biological substances; Z91.040 Latex allergy status; Z79.4 Long term (current) use of insulin; Z79.899 Other long term (current) drug therapy

== ENCOUNTER 2020-06-10 02:22 | Emergency (ER) | payer MEDICARE, MEDICAID ==
[~2020-06-10] VITALS: Ht 167.6 cm; Wt 112.9 kg
[~2020-06-10 02:22] MED LIST changes: +ANEC4CRE3 TOP; +ASPI81TA26 PO; +BUPR150T12 PO; -BUPR150T3 PO
[2020-06-10 02:23] VITALS: BP 163/92
[2020-06-10] MEDS ORDERED: ISOVUE-370 76% 100ML VIAL As Ordered ONE (03:18)
[2020-06-10 03:27] LABS: BASO # 0.1 10^3/uL (0.0-0.2); BASO % 0.7 % (0.0-1.0); EOS # 0.1 10^3/uL (0.0-0.5); EOS % 1.7 % (0.0-3.0); HEMOGLOBIN 13.2 g/dl (12.0-15.5); LYMPH # 2.2 10^3/uL (1.5-5.0); MEAN CORPUSCULAR HEMOGLOBIN 24.2 pg (27.0-33.0); MEAN CORPUSCULAR HGB CONC 30.7 g/dl (32.0-36.5); MEAN CORPUSCULAR VOLUME 78.9 fl (80.0-96.0); MONO # 0.6 10^3/uL (0.0-0.8); NEUTROPHILS % 58.2 % (36.0-66.0); PLATELET COUNT, AUTOMATED 168 10^3/uL (150-450); RED BLOOD COUNT 5.45 10^6/uL (4.00-5.40)
[2020-06-10 03:56] LABS: BLOOD UREA NITROGEN 12 MG/DL (7-18); CALCIUM LEVEL 8.8 MG/DL (8.5-10.1); CARBON DIOXIDE LEVEL 25 MEQ/L (21-32); CHLORIDE LEVEL 102 MEQ/L (98-107); CREATININE FOR GFR 0.83 MG/DL (0.55-1.30); GLOMERULAR FILTRATION RATE > 60.0 (>58); GLUCOSE, FASTING 410 MG/DL (70-100); POTASSIUM SERUM 3.6 MEQ/L (3.5-5.1); SODIUM LEVEL 136 MEQ/L (136-145)
[2020-06-10] MEDS ORDERED: CLINDAMYCIN 900 MG in IV 1 EA IV ONE (04:20)
--- NOTE | 2020-06-10 05:08 | REPVR ---
PROCEDURE INFORMATION: Exam: CT Maxillofacial With Contrast Exam date and time: 06/10/2020 3:10 AM Age: 39 years old Clinical indication: Other: Cellulitis; Additional info: Cellulitis R/O abscess right mandible/submental TECHNIQUE: Imaging protocol: Computed tomography images of the face with intravenous contrast. Radiation optimization: All CT scans at this facility use at least one of these dose optimization techniques: automated exposure control; mA and/or kV adjustment per patient size (includes targeted exams where dose is matched to clinical indication); or iterative reconstruction. Contrast material: ISO; Contrast volume: 75 ml; Contrast route: INTRAVENOUS (IV); COMPARISON: No relevant prior studies available. FINDINGS: Orbital cavity: Orbits are normal. Globes are unremarkable. Bones/joints: No acute fracture. Paranasal sinuses: Normal. No air-fluid levels. Soft tissues: Mild subcutaneous edema and skin thickening about the anterior mandible, greatest on the right. No focal abscess. IMPRESSION: Mild subcutaneous edema and skin thickening about the anterior mandible, right greater than left consistent with cellulitis. No abscess is seen Electronically signed by: Henok Ayers On 06/10/2020 05:08:37 AM
[2020-06-10] MEDS ORDERED: NORCO 5/325MG TABLET (BULK FOR ED) PO ONE (05:15)
[2020-06-10] MEDS ORDERED: CLIN150C15 PO (05:16)
== END 2020-06-10 05:46 | disposition home or self-care (01) ==
LOC: M ED 02:22
DX: L03.211 Cellulitis of face (principal); E11.9 Type 2 diabetes mellitus without complications; I10 Essential (primary) hypertension; E78.5 Hyperlipidemia, unspecified; M79.7 Fibromyalgia; G47.33 Obstructive sleep apnea (adult) (pediatric); Z79.4 Long term (current) use of insulin; Z79.899 Other long term (current) drug therapy; Z88.8 Allergy status to other drugs, medicaments and biological substances; Z91.040 Latex allergy status

== ENCOUNTER 2020-06-12 01:58 | Inpatient (IN) | payer MEDICARE, MEDICAID ==
[~2020-06-12] VITALS: Ht 167.6 cm; Wt 110.5 kg
[~2020-06-12 01:58] MED LIST changes: +CLIN150C15 PO
[2020-06-12] MEDS ORDERED: CLINDAMYCIN 300 MG in IV 1 EA IV ONE (02:30)
[2020-06-12] MEDS ORDERED: MORPHINE 4 MG/ML 1ML VIAL/SYRINGE (J2270) IV PRN ×2 (02:30→03:55)
[2020-06-12] MEDS ORDERED: ONDANSETRON 4MG/2ML VIAL IV ONE (02:30)
[2020-06-12] MEDS ORDERED: ISOVUE-370 76% 100ML VIAL As Ordered ONE (02:36)
[2020-06-12 02:44] LABS: BASO % 0.6 % (0.0-1.0); EOS # 0.1 10^3/uL (0.0-0.5); HEMATOCRIT 41.5 % (36.0-47.0); HEMOGLOBIN 12.9 g/dl (12.0-15.5); LYMPH # 2.1 10^3/uL (1.5-5.0); LYMPH % 33.1 % (24.0-44.0); MEAN CORPUSCULAR HEMOGLOBIN 24.4 pg (27.0-33.0); MEAN CORPUSCULAR HGB CONC 31.1 g/dl (32.0-36.5); MEAN CORPUSCULAR VOLUME 78.6 fl (80.0-96.0); MONO # 0.4 10^3/uL (0.0-0.8); NEUTROPHILS # 3.7 10^3/uL (1.5-8.5); NEUTROPHILS % 58.1 % (36.0-66.0); PLATELET COUNT, AUTOMATED 162 10^3/uL (150-450); RED BLOOD COUNT 5.28 10^6/uL (4.00-5.40); WHITE BLOOD COUNT 6.4 10^3/uL (4.0-10.0)
--- NOTE | 2020-06-12 03:08 | REPVR ---
PROCEDURE INFORMATION: Exam: CT Maxillofacial With Contrast Exam date and time: 06/12/2020 2:28 AM Age: 39 years old Clinical indication: Jaw pain; Additional info: Right sided mandibular swelling, worsening TECHNIQUE: Imaging protocol: Computed tomography images of the face with intravenous contrast. Radiation optimization: All CT scans at this facility use at least one of these dose optimization techniques: automated exposure control; mA and/or kV adjustment per patient size (includes targeted exams where dose is matched to clinical indication); or iterative reconstruction. Contrast material: ISO; Contrast volume: 75 ml; Contrast route: INTRAVENOUS (IV); COMPARISON: CT Maxillofacial with contrast 06/10/2020 4:20 AM FINDINGS: Orbital cavity: Orbits are normal. Globes are unremarkable. Bones/joints: No acute fracture. Paranasal sinuses: Normal. No air-fluid levels. Soft tissues: Right anterior perimandibular soft tissue swelling with some skin thickening. There is asymmetric confluence along the anterior right mandibular body without definite rim enhancing abscess. No significant periodontal disease is noted in the anterior mandible. Lymph nodes: Upper normal submental nodes and borderline right submandibular node which are slightly increased since the prior study and may be reactive. IMPRESSION: 1. Right anterior perimandibular subcutaneous edema with skin thickening consistent with cellulitis. There is asymmetric soft tissue confluence along the anterior right mandibular body, increased since 06/10/2020 with no rim enhancement and may reflect phlegmon or inflammatory confluence. No adjacent periodontal disease is evident. 2. Upper normal submental nodes and borderline right submandibular node which are increased since the prior study and may be reactive. Electronically signed by: Henok Ayers On 06/12/2020 03:09:15 AM
[2020-06-12 03:13] LABS: BLOOD UREA NITROGEN 10 MG/DL (7-18); C REACTIVE PROTEIN QUANTITATIV 1.29 MG/DL (0.00-0.30); CALCIUM LEVEL 8.6 MG/DL (8.5-10.1); CARBON DIOXIDE LEVEL 24 MEQ/L (21-32); CHLORIDE LEVEL 104 MEQ/L (98-107); CREATININE FOR GFR 0.73 MG/DL (0.55-1.30); GLOMERULAR FILTRATION RATE > 60.0 (>58); GLUCOSE, FASTING 413 MG/DL (70-100); POTASSIUM SERUM 3.6 MEQ/L (3.5-5.1); SODIUM LEVEL 134 MEQ/L (136-145)
[2020-06-12] MEDS ORDERED: GLUCOSE 4GM CHEW TABLET PO PRN (03:50)
[2020-06-12] MEDS ORDERED: MOM 30ML SUSPENSION UDC PO PRN (03:50)
[2020-06-12] MEDS ORDERED: ACETAMINOPHEN TAB 650MG DOSE (2X325MG) PO PRN (03:50)
[2020-06-12] MEDS ORDERED: DEXTROSE 50% 50 ML SYRINGE IV PRN (03:50)
[2020-06-12] MEDS ORDERED: MAALOX 30 ML SUSP *UDC PO PRN (03:50)
[2020-06-12] MEDS ORDERED: GLUCAGON INJ 1MG VIAL SC PRN (03:50)
[2020-06-12] MEDS ORDERED: NS 1,000 ML IV ONE (03:55)
[2020-06-12] MEDS ORDERED: KETOROLAC 30 MG/ML 1ML VIAL IV ONE (03:55)
[2020-06-12] MEDS ORDERED: MORPHINE 30 MG TAB **MSIR PO PRN (03:55)
[2020-06-12] MEDS ORDERED: HumaLOG INSULIN (NovoLOG) PER UNIT SC STA (04:15)
[2020-06-12] MEDS ORDERED: LEVEMIR (INSULIN DETEMIR) 1 UNITS/0.01ML SC SCH ×2 (04:20→09:00)
[2020-06-12 04:21] LABS: ERYTHROCYTE SEDIMENTATION RATE 17 mm/hr (0-20)
--- NOTE | 2020-06-12 04:28 | HPEPDOC ---
[facility] Medical History & Physical Date of Admission Jun 12, 2020 Date of Service: Jun 12, 2020 Primary Care Physician: JAZMINE SERRA DO Attending Physician: SHERYL BHAT MD History and Physical CHIEF COMPLAINT: Right-sided facial pain and swelling HISTORY OF PRESENT ILLNESS: Patient is a 39-year-old female with a complicated medical history who presents to emergency department for persisting right-sided facial pain and swelling. Hannah amos originally presented to the emergency department on 06/10/20 and planning of an abscess/boil on the right side of her cheek that had been present for the preceding 5 days. She reported that time that she was applying warm compresses with no relief, reported that she did experience green discharge the first 2 days. Vitals were stable. CBC did not demonstrate a white count, patient was not anemic. BMP did not show any ocular disturbances, patient was found to have a fasting glucose of 410. Maxillofacial CT showed mild subcutaneous edema, skin thickening around the anterior mandible on the right, insistent with cellulitis, no abscess seen. Patient was treated with single dose of clindamycin, she refused narcotics for pain control. Patient was discharged with a prescription for clindamycin. Today, patient states that the pain, swelling and redness have increased. She states that she has not taken any of her antibiotics because she refuses to take them on an empty stomach. Patient is currently unable to eat or drink anything secondary to an discomfort opening her jaw. Patient returns to the emergency department the evening of 06/12 reporting persisting right-sided facial pain and swelling. Patient found to be afebrile, pulse of 70, respiratory rate 18, blood pressure 163/92 maintaining a saturation of 98% on room air. Repeat CBC without any significant abnormalities. BMP dem onstrated mild hyponatremia at 134, normal potassium chloride, BUN/CR of 10/0.73, fasting glucose of 413 without an anion gap, CRP elevated at 1.29. Repeat maxillofacial CT was ordered and shows persisting cellulitis possible phlegmon, without abscess. Patient was given Zofran, morphine and clindamycin IV. The fact the patient refuses to take oral antibiotics and her cellulitis is obviously progressing, the hospitalist team was contacted to admit the patient for worsening facial cellulitis. PAST MEDICAL HISTORY: Obesity COPD Fibromyalgia Migraines DMII, noncompliance ALMAZ Asthma Depression, anxiety PTSD Osteoarthritis Degenerative disc disease Polycystic ovary disease Costochondritis Cervical dysplasia Carpal tunnel History of MRSA PAST SURGICAL HISTORY: History of carpal tunnel release, 2011 Lumbar discectomy and fusion, 2017 Tonsillectomy Uvulectomy Cholecystectomy, 2011 Colposcopy, 2017 SOCIAL HISTORY: Marital status: . Resides in: Own home, [place] Employment: Patient is currently disabled Tobacco use: Patient is a former smoker, quit in summer, off and on for 20 years, less than one pack per day ETOH: Occasional Illicit drug use: Denies illicit or IV drug use including marijuana FAMILY HISTORY: Father: Alive, 63 years old, no medical problems Mother: Alive, 60 years old, breast lump removed, benign Siblings: One sister, healthy, ovarian cysts Maternal grandmother: Alive, 70 years, breast cancer Hereditary Diseases: Denies history of colon or ovarian cancer ALLERGIES: Please see below. REVIEW OF SYSTEMS: CONSTITUTIONAL: Denies any recent fevers, chills, night sweats, generalized fatigue or malaise HEENT: See HPI as it pertains to right jaw swelling, erythema and pain. Denies any difficulty swallowing, no intraoral lesions. No changes in vision or hearing. Denies any headaches. CARDIOVASCULAR: Denies any chest pain or palpitations RESPIRATORY: Denies shortness of breath, dyspnea on exertion, cough, wheeze, pleuritic chest pain, orthopnea PND GASTROINTESTINAL: She does carry a history of gastroparesis though she denies any emesis or abdominal pain or discomfort in recent days, no constipation or diarrhea GENITOURINARY: No urinary frequency, urgency, hesitancy or dysuria MUSCULOSKELETAL: Denies any acute muscle aches or pains, patient does report baseline fibromyalgia NEUROLOGICAL: Denies any syncope or loss of consciousness, patient does have peripheral neuropathy secondary to diabetes. No dizziness or vertigo, no bouts of confusion, weakness. PSYCHIATRIC: Baseline depression and anxiety, PTSD HOME MEDICATIONS: Please see below. PHYSICAL EXAMINATION: VITAL SIGNS: Please see below GENERAL APPEARANCE: Patient is interviewed and examined in the emergency department. She was found to be seated at the side of her bed. She did not appear to be in any acute distress. He was alert and oriented, able to answer questions regarding her medical history and cooperate with examination. HEENT: Patient does have moderate swelling and erythema along the anterior aspect of her right mandible, erythema extends submandibularly and superiorly to the zygoma. Slight induration without fluctuance along the right anterior mandibular ramus. Warm to the touch. Head is otherwise normocephalic and atraumatic, EOMI, no sinus pain/pressure to palpation. Patient is unable to open her mouth, though mucous membranes do appear moist. No difficulty swallowing, no appreciable cervical lymphadenopathy. CARDIOVASCULAR: Regular rate and rhythm, no murmurs appreciated LUNGS: Clear to auscultation bilaterally, good air movement throughout without any wheezes rales or rhonchi ABDOMEN: Obese, soft, nontender nondistended EXTREMITIES: No lower extremity swelling or edema, able to move her upper and lower extremities without difficulty. NEUROLOGICAL: Alert and oriented 3 and dysphasia or dysarthria, no facial droop, cranial nerves are grossly intact. PSYCHIATRIC: Mood and affect are appropriate LABORATORY DATA: See below. IMAGING: Maxillofacial CT (06/10/20): Mild subcutaneous edema and skin thickening about the anterior mandible, right greater than left, consistent with cellulitis. No abscesses seen. Maxillofacial CT (06/12/20): Right anterior perimandibular subcutaneous edema w ith skin thickening consistent with cellulitis. There is asymmetric soft tissue confluence along the anterior right mandible, increased since 06/10/20 with no rim enhancement and may reflect phlegmon or inflammatory confluence. No adjacent periodontal disease is evident. Upper normal submental nodes and and borderline right submandibular node which are increased since prior study and may be reacti ve. MICROBIOLOGY: Blood Culture (06/12/20): Pending. ASSESSMENT: Patient is a 39-year-old female with multiple medical comorbidities including uncontrolled type 2 diabetes, degenerative disc disease, mood disorder, E OPD and obesity who presented to the emergency department the evening of 06/11/20 distant right-sided facial swelling and pain. As mentioned in HPI, patient was previously seen in emergency department on 06/10/20 and diagnosed with a right- sided facial cellulitis. Patient was discharged on by mouth clindamycin. Upon presentation this evening, patient reports that she did not take this medication secondary to being unable to eat. This evening, patient's vitals are stable, she is afebrile without leukocytosis. Repeat lab work does demonstrate hyperglycemia at 413 in addition to an elevated CRP. Repeat maxillofacial CT significant for persisting cellulitis without discrete abscess. Given that the patient is unable to take oral antibiotics, and the fact that her cellulitis is obviously progressing, she will be admitted to the hospital for IV antibiotics, pain control and management of her hyperglycemia. PLAN: #Facial cellulitis, possible MRSA -No discernible abscess on imaging. -Patient to be treated with vancomycin for possible MRSA as patient does have a history, MRSA PCR screen pending -Elevated CRP, BC ordered and pending -Pain control with Toradol, Morphine PRN #Uncontrolled diabetes, diabetic neuropathy -Patient reports that she has been unable to eat solid foods for the last 2 days -Glucose of 413, will give 25 units now -Continue home Levemir -Mechanical soft diet, advance to CC when able -Sliding-scale insulin AC/QHS #Degenerative disc disease -Patient is currently unable to tolerate PO medications -We'll continue her home PRN cyclobenzaprine for when she is able #Depression/Anxiety -Patient is currently unable to tolerate PO medications -We'll continue home Wellbutrin for when she is able #COPD -Stable -Home inhalers as needed #Gastroparesis/GERD -IV Protonix -IV metoclopramide #Obesity -Complicating care -Lipids, thyroid studies ordered. DVT PROPHYLAXIS: Mechanical, TEDs/Seq CODE STATUS: Full Code DISPO: Anticipate >2 night stay Vital Signs Vital Signs Date Time Temp Pulse Resp B/P (MAP) Pulse Ox O2 Delivery O2 Flow Rate FiO2 06/12/20 03:51 96.8 06/12/20 02:51 18 06/12/20 02:04 98 180/113 99 Room Air Laboratory Data Labs 24H Laboratory Tests 2 06/12/20 02:39: Immature Granulocyte % (Auto) 0.2, Neutrophils (%) (Auto) 58.1, Lymphocytes (%) (Auto) 33.1, Monocytes (%) (Auto) 6.0, Eosinophils (%) (Auto) 2.0, Basophils (%) (Auto) 0.6, Neutrophils # (Auto) 3.7, Lymphocytes # (Auto) 2.1, Monocytes # (A uto) 0.4, Eosinophils # (Auto) 0.1, Basophils # (Auto) 0.0, Nucleated Red Blood Cells % (auto) 0.0, Anion Gap 6L, Glomerular Filtration Rate > 60.0, Calcium Level 8.6, C-Reactive Protein, Quantitative 1.29H CBC/BMP Laboratory Tests 06/12/20 02:39 Home Medications Scheduled Bupropion HCl (Bupropion Xl) 300 Mg Tab.er.24h, 300 MG PO DAILY Dulaglutide (Trulicity) 1.5 Mg/0.5 Ml Pen.injctr, 1.5 MG SC 1XWK SUNDAYS Fluticasone Furoate (Arnuity Ellipta) 100 Mcg/Act Inh, 1 PUFF INH DAILY Insulin Aspart (Novolog Flexpen) 100 Unit/1 Ml Insuln.pen, 1 DOSE SC AC PER SLIDING SCALE. NOT TO GO OVER 10 UNITS Insulin Glargine,Hum.rec.anlog (Basaglar Kwikpen U-100) 100 Unit/Ml Inj, 75 UNITS SC QHS Metformin HCl (Metformin HCl) 1,000 Mg Tab, 1,000 MG PO BID Scheduled PRN Albuterol Sulfate (Ventolin Hfa) 108 Mcg/Act Aer, 2 PUFF INH QID PRN for SHORTNESS OF BREATH Cyclobenzaprine HCl (Cyclobenzaprine HCl) 10 Mg Tablet, 10 MG PO TID PRN for MUSCLE SPASMS Metoclopramide HCl (Metoclopramide HCl) 5 Mg Tablet, 5 MG PO BIDP PRN for CONSTIPATION BEFORE MEALS Allergies Coded Allergies: canagliflozin (Verified Allergy, Unknown, 01/29/20) latex (Verified Allergy, Unknown, 01/29/20) gabapentin (Verified Adverse Reaction, Unknown, n/v, 01/29/20) A-FIB/CHADSVASC A-FIB History Current/History of A-Fib/PAF?: No GME ATTESTATION GME ATTESTATION My faculty preceptor for this patient encounter was physically present during the encounter and was fully available. All aspects of the patient interview, examination, medical decision making process, and medical care plan development were reviewed and approved by the faculty preceptor. The faculty preceptor is aware and concurs with the plan as stated in the body of this note and will attest to such by his/her cosignature. ATTENDING NOTE I have independently interviewed and examined this patient at the bedside, and agree with the physical findings, assessment, and management plan as documented above by my Resident Physician, Dr. Real. The patient's questions have been satisfactorily answered. LARRY REAL DO Jun 12, 2020 04:28 SHERYL BHAT MD Jun 12, 2020 21:58
[2020-06-12 04:35] LABS: HEMOGLOBIN A1c 11.6 %
[2020-06-12] MEDS ORDERED: ALBUTEROL 90 MCG/ACT 8GM HFA INHALER INH PRN (04:50)
[2020-06-12] MEDS ORDERED: CYCLOBENZAPRINE 10MG TABLET PO PRN (04:50)
[2020-06-12 04:56] LABS: BLOOD UREA NITROGEN 10 MG/DL (7-18); C REACTIVE PROTEIN QUANTITATIV 1.35 MG/DL (0.00-0.30); CALCIUM LEVEL 8.2 MG/DL (8.5-10.1); CARBON DIOXIDE LEVEL 24 MEQ/L (21-32); CHLORIDE LEVEL 103 MEQ/L (98-107); CHOLESTEROL LEVEL 148 MG/DL (<200); CHOLESTEROL RISK RATIO 5.481 (<5); COMPLEMENT C3 168 MG/DL (90-180); COMPLEMENT C4 24 MG/DL (10-40); CREATININE FOR GFR 0.68 MG/DL (0.55-1.30); GLOMERULAR FILTRATION RATE > 60.0 (>58); GLUCOSE, FASTING 378 MG/DL (70-100); HDL CHOLESTEROL 27 MG/DL (>40); IMMUNOGLOBULIN G 767 MG/DL (681-1648); NON-HDL-C 121 MG/DL; POTASSIUM SERUM 3.8 MEQ/L (3.5-5.1); SODIUM LEVEL 134 MEQ/L (136-145); TRIGLYCERIDES LEVEL 438 MG/DL (<150)
[2020-06-12] MEDS ORDERED: VANCOMYCIN HCL 1,000 MG, VIAL MATE ADAPTER 1 EACH in NS 250 ML IV ONE ×2 (05:00→06:00)
[2020-06-12] MEDS ORDERED: PILL CUTTER 1 EACH XX PRN (05:30)
[2020-06-12] MEDS: NITROGLYCERIN 2% OINT 1 GM *U/D* PKT TOP SCH ×3 (06:00→17:03)
[2020-06-12 08:35] VITALS: BP 125/75
[2020-06-12] MEDS: DOCUSATE SODIUM 100MG CAPSULE PO SCH ×2 (09:00→21:00)
[2020-06-12] MEDS: PANTOPRAZOLE 40MG VIAL (C9113 PER 1) IV SCH (09:23)
[2020-06-12] MEDS: buPROPion **XL** TABLET 150MG (WELLBUTRIN XL) PO SCH (09:23)
[2020-06-12] MEDS: cefTRIAXone SOD 2 GM in D5W MINI-BAG PLUS 50 ML IV SCH (09:23)
[2020-06-12] MEDS: HumaLOG INSULIN (NovoLOG) PER UNIT SC SCH ×4 (09:38→21:00)
[2020-06-12 14:00] VITALS: BP 133/75
[2020-06-12] MEDS: KETOROLAC 30 MG/ML 1ML VIAL IV PRN (15:09)
[2020-06-12] MEDS: VANCOMYCIN HCL 1,000 MG, VIAL MATE ADAPTER 1 EACH in NS 250 ML IV SCH ×2 (15:09→21:38)
[2020-06-12] MEDS: METOCLOPRAMIDE INJ 10MG/2ML VIAL (J2765 PER 1) IV PRN (18:59)
[2020-06-12] MEDS: LEVEMIR (INSULIN DETEMIR) 1 UNITS/0.01ML SC SCH (21:38)
[2020-06-12 22:00] VITALS: BP 136/86
[2020-06-13] MEDS: KETOROLAC 30 MG/ML 1ML VIAL IV PRN ×2 (00:43→06:43)
[2020-06-13 05:09] VITALS: BP 113/70
[2020-06-13] MEDS: VANCOMYCIN HCL 1,000 MG, VIAL MATE ADAPTER 1 EACH in NS 250 ML IV SCH ×3 (05:15→21:00)
[2020-06-13] MEDS: NITROGLYCERIN 2% OINT 1 GM *U/D* PKT TOP SCH ×5 (05:17→23:41)
[2020-06-13 06:29] LABS: HEMOGLOBIN 11.5 g/dl (12.0-15.5); MEAN CORPUSCULAR HEMOGLOBIN 24.9 pg (27.0-33.0); MEAN CORPUSCULAR HGB CONC 31.1 g/dl (32.0-36.5); MEAN CORPUSCULAR VOLUME 80.3 fl (80.0-96.0); PLATELET COUNT, AUTOMATED 144 10^3/uL (150-450); RED BLOOD COUNT 4.61 10^6/uL (4.00-5.40)
[2020-06-13 06:56] LABS: BLOOD UREA NITROGEN 8 MG/DL (7-18); CALCIUM LEVEL 7.8 MG/DL (8.5-10.1); CARBON DIOXIDE LEVEL 27 MEQ/L (21-32); CHLORIDE LEVEL 106 MEQ/L (98-107); CREATININE FOR GFR 0.51 MG/DL (0.55-1.30); GLOMERULAR FILTRATION RATE > 60.0 (>58); GLUCOSE, FASTING 205 MG/DL (70-100); POTASSIUM SERUM 3.5 MEQ/L (3.5-5.1); SODIUM LEVEL 138 MEQ/L (136-145)
[2020-06-13 06:57] LABS: ALBUMIN 2.7 GM/DL (3.2-5.2); ALT/SGPT 48 U/L (12-78); BILIRUBIN,TOTAL 0.4 MG/DL (0.2-1.0); TOTAL PROTEIN 5.5 GM/DL (6.4-8.2)
[2020-06-13] MEDS: HumaLOG INSULIN (NovoLOG) PER UNIT SC SCH ×4 (07:25→20:33)
[2020-06-13 07:56] LABS: C REACTIVE PROTEIN QUANTITATIV 0.98 MG/DL (0.00-0.30)
[2020-06-13] MEDS: PANTOPRAZOLE 40MG VIAL (C9113 PER 1) IV SCH (08:15)
[2020-06-13] MEDS: buPROPion **XL** TABLET 150MG (WELLBUTRIN XL) PO SCH (08:15)
[2020-06-13] MEDS: LEVEMIR (INSULIN DETEMIR) 1 UNITS/0.01ML SC SCH ×2 (08:15→20:57)
[2020-06-13] MEDS: cefTRIAXone SOD 2 GM in D5W MINI-BAG PLUS 50 ML IV SCH (08:15)
[2020-06-13 08:24] LABS: ERYTHROCYTE SEDIMENTATION RATE 18 mm/hr (0-20)
[2020-06-13] MEDS: DOCUSATE SODIUM 100MG CAPSULE PO SCH ×2 (08:28→20:58)
--- NOTE | 2020-06-13 10:09 | IPNPDOC ---
Date Seen The patient was seen on 06/13/20. Progress Note SUBJECTIVE: 39 yo F with a hx of COPD, DM2, ALMAZ, Asthma, obesity, depression, PTSD, OA, hx of MRSA, admitted to hospital for management of a right facial cellulitis secondary to a pustule. She was seen in the ED was given a single dose of invasive clindamycin was discharge in a by mouth regimen, but due to her pain. She was unable to take by mouth medications. She returns now for worsening cellulitis not responding to warm compresses. Seen and examined at bedside. No acute events overnight. The pustule is draining spontaneously slightly, however, the margins of the cellulitis has not improved. He denies any fevers, chills, nausea, vomiting, diarrhea, chest pain, shortness of breath or palpitations. She is able to tolerate a soft diet. OBJECTIVE PHYSICAL EXAMINATION: VITAL SIGNS: please see below General: NAD, comfortable HEENT: PERRLA, EOMI, sclerae clear. R lower mandible pustule with ascending cellulitis to R maxillary area, below R eye. Eye is not involved. Neck: supple, normal ROM, no JVD Respiratory: lungs CTAB, no wheeze, no rales, no crackles CVS: RRR, normal S1, S2, no murmurs Abdo: soft, no masses, no hepatosplenomegaly, BS+, no rebound tenderness Extremities: no edema, pulses 2+ MSK: no joint deformities, normal ROM Neuro: no focal neuro deficits, moving all 4 extremities, CN2-12 intact. Strength 5/5 in all 4 extremities. No nystagmus. Psych: calm, cooperative, AAO x 3 LABORATORY DATA, IMAGING STUDIES, MICROBIOLOGY: Please see below. Maxillofacial CT (06/10/20): Mild subcutaneous edema and skin thickening about the anterior mandible, right greater than left, consistent with cellulitis. No abscesses seen. Maxillofacial CT (06/12/20): Right anterior perimandibular subcutaneous edema with skin thickening consistent with cellulitis. There is asymmetric soft tissue confluence along the anterior right mandible, increased since 06/10/20 with no rim enhancement and may reflect phlegmon or inflammatory confluence. No adjacent periodontal disease is evident. Upper normal submental nodes and and borderline right submandibular node which are increased since prior study and may be reactiv ASSESSMENT AND PLAN: PROBLEMS: #Facial cellulitis, possible MRSA -No discernible abscess on imaging. -Patient to be treated with vancomycin for possible MRSA as patient does have a history, MRSA PCR screen pending -CRP elevated. Prelim blood cx negative -added ceftriaxone for strep coverage (Day 2). Vancomycin (Day #2) -Pain control with Toradol, Morphine PRN. DC toradol. Tramadol prn for pain on DC. - spoke to Dr. Richter, will plan for seeing patient in clinic on 06/14/20, for incision and drainage. Advise to keep abx. #Uncontrolled diabetes, diabetic neuropathy -Patient reports that she has been unable to eat solid foods for the last 2 days -Glucose of 413, will give 25 units now -increase home levemir to 50 units BID. Glucose control improved today, down to low 200. - advance diet aat. -Sliding-scale insulin AC/QHS #Degenerative disc disease - cyclobenzaprine prn (home med) - now able to take po meds #Depression/Anxiety - bupropion #COPD -Stable -Home inhalers as needed #Gastroparesis/GERD -IV Protonix -IV metoclopramide prn #Obesity -Complicating care -Lipids, thyroid studies ordered. DVT ppx: scds. teds. lovenox. VS, I&O, 24H, Fishbone Vital Signs/I&O Vital Signs Date Time Temp Pulse Resp B/P (MAP) Pulse Ox O2 Delivery O2 Flow Rate FiO2 06/13/20 05:17 113/70 06/13/20 05:09 97.8 66 16 96 06/12/20 22:00 Room Air I&O- Last 24 Hours up to 6 AM 06/13/20 06:00 Intake Total 3430 ml Output Total 1500 ml Balance 1930 ml Laboratory Data 24H LABS Laboratory Tests 2 06/12/20 11:35: Bedside Glucose (Misc Panel) 292H 06/12/20 16:39: Bedside Glucose (Misc Panel) 309H 06/12/20 20:25: Bedside Glucose (Misc Panel) 247H 06/13/20 05:49: Nucleated Red Blood Cells % (auto) 0.0, Erythrocyte Sedimentation Rate 18, Anion Gap 5L, Glomerular Filtration Rate > 60.0, Calcium Level 7.8L, Total Bilirubin 0.4, Aspartate Amino Transf (AST/SGOT) 36, Alanine Aminotransferase (ALT/SGPT) 48, Alkaline Phosphatase 79, C-Reactive Protein, Quantitative 0.98H, Total Protein 5.5L, Albumin 2.7L, Albumin/Globulin Ratio 1.0L, Vancomycin Level Trough 21.0H CBC/BMP Laboratory Tests 06/13/20 05:49 Microbiology Microbiology 06/12/20 Respiratory Virus Panel (PCR) (CHRISTOPHER) - Final, Complete 06/12/20 Blood Culture - Preliminary, Resulted No growth after 24 hours . All specim... 06/12/20 Blood Culture - Preliminary, Resulted No growth after 24 hours . All specim... ROBERT DEY MD Jun 13, 2020 10:09
[2020-06-13] MEDS: ENOXAPARIN 40MG/0.4ML SYRINGE (J1650 PER 10MG) SC SCH (12:17)
[2020-06-13 14:00] VITALS: BP 131/76
[2020-06-13 22:00] VITALS: BP 132/76
[2020-06-14] MEDS: METOCLOPRAMIDE INJ 10MG/2ML VIAL (J2765 PER 1) IV PRN (05:15)
[2020-06-14] MEDS: VANCOMYCIN HCL 1,000 MG, VIAL MATE ADAPTER 1 EACH in NS 250 ML IV SCH (05:25)
[2020-06-14] MEDS: NITROGLYCERIN 2% OINT 1 GM *U/D* PKT TOP SCH ×2 (05:32→12:00)
[2020-06-14 06:00] VITALS: BP 132/76
[2020-06-14 06:16] LABS: HEMATOCRIT 36.7 % (36.0-47.0); HEMOGLOBIN 11.5 g/dl (12.0-15.5); MEAN CORPUSCULAR HEMOGLOBIN 24.9 pg (27.0-33.0); MEAN CORPUSCULAR HGB CONC 31.3 g/dl (32.0-36.5); MEAN CORPUSCULAR VOLUME 79.4 fl (80.0-96.0); PLATELET COUNT, AUTOMATED 154 10^3/uL (150-450); RED BLOOD COUNT 4.62 10^6/uL (4.00-5.40); WHITE BLOOD COUNT 4.3 10^3/uL (4.0-10.0)
[2020-06-14 06:38] LABS: ALBUMIN 2.9 GM/DL (3.2-5.2); ALT/SGPT 56 U/L (12-78); BILIRUBIN,TOTAL 0.5 MG/DL (0.2-1.0); BLOOD UREA NITROGEN 10 MG/DL (7-18); CALCIUM LEVEL 8.4 MG/DL (8.5-10.1); CARBON DIOXIDE LEVEL 26 MEQ/L (21-32); CHLORIDE LEVEL 108 MEQ/L (98-107); GLOMERULAR FILTRATION RATE > 60.0 (>58); GLUCOSE, FASTING 135 MG/DL (70-100); POTASSIUM SERUM 3.4 MEQ/L (3.5-5.1); SODIUM LEVEL 140 MEQ/L (136-145); TOTAL PROTEIN 5.9 GM/DL (6.4-8.2)
[2020-06-14] MEDS ORDERED: POTASSIUM CHLORIDE 10% LIQ 20 MEQ/15 ML UDC PO ONE (07:30)
[2020-06-14] MEDS: HumaLOG INSULIN (NovoLOG) PER UNIT SC SCH ×2 (08:36→12:00)
[2020-06-14] MEDS: PANTOPRAZOLE 40MG VIAL (C9113 PER 1) IV SCH ×2 (08:36→08:43)
[2020-06-14] MEDS: cefTRIAXone SOD 2 GM in D5W MINI-BAG PLUS 50 ML IV SCH (08:36)
[2020-06-14] MEDS: LEVEMIR (INSULIN DETEMIR) 1 UNITS/0.01ML SC SCH (08:37)
[2020-06-14] MEDS: DOCUSATE SODIUM 100MG CAPSULE PO SCH (08:37)
[2020-06-14] MEDS: ENOXAPARIN 40MG/0.4ML SYRINGE (J1650 PER 10MG) SC SCH ×2 (08:38→08:39)
[2020-06-14] MEDS: buPROPion **XL** TABLET 150MG (WELLBUTRIN XL) PO SCH (08:38)
--- NOTE | 2020-06-14 09:26 | DS.PDOC ---
Discharge Summary General Date of Admission Jun 12, 2020 at 03:48 Date of Discharge 06/14/20 Discharge Summary PROCEDURES PERFORMED DURING STAY: [None]. ADMITTING DIAGNOSES: facial cellulitis uncontrolled diabetes mellitus degenerative disc disease depression and anxiety COPD GERD Gastroparesis Obesity BMI 39.3 DISCHARGE DIAGNOSES: facial cellulitis uncontrolled diabetes mellitus degenerative disc disease depression and anxiety COPD GERD Gastroparesis Obesity BMI 39.3 COMPLICATIONS/CHIEF COMPLAINT: Facial Cellulits. HISTORY OF PRESENT ILLNESS: Patient is a 39-year-old female with a complicated medical history who presents to emergency department for persisting right-sided facial pain and swelling. Patient originally presented to the emergency department on 06/10/20 and planning of an abscess/boil on the right side of her cheek that had been present for the preceding 5 days. She reported that time that she was applying warm compresses with no relief, reported that she did experience green discharge the first 2 days. Vitals were stable. CBC did not demonstrate a white count, patient was not anemic. BMP did not show any ocular disturbances, patient was found to have a fasting glucose of 410. Maxillofacial CT showed mild subcutaneous edema, skin thickening around the anterior mandible on the right, insistent with cellulitis, no abscess seen. Patient was treated with single dose of clindamycin, she refused narcotics for pain control. Patient was discharged with a prescription for clindamycin. Today, patient states that the pain, swelling and redness have increased. She states that she has not taken any of her antibiotics because she refuses to take them on an empty stomach. Patient is currently unable to eat or drink anything secondary to an discomfort opening her jaw. Patient returns to the emergency department the evening of 06/12 reporting persisting right-sided facial pain and swelling. Patient found to be afebrile, pulse of 70, respiratory rate 18, blood pressure 163/92 maintaining a saturation of 98% on room air. Repeat CBC without any significant abnormalities. BMP demonstrated mild hyponatremia at 134, normal potassium chloride, BUN/CR of 10/0.73, fasting glucose of 413 without an anion gap, CRP elevated at 1.29. Repeat maxillofacial CT was ordered and shows persisting cellulitis possible phlegmon, without abscess. Patient was given Zofran, morphine and clindamycin IV. The fact the patient refuses to take oral antibiotics and her cellulitis is obviously progressing, the hospitalist team was contacted to admit the patient for worsening facial cellulitis. HOSPITAL COURSE: #Facial cellulitis, possible MRSA - No discernible abscess on imaging. - Patient to be treated with vancomycin for possible MRSA as patient does have a history, MRSA PCR screen pending - CRP elevated. Prelim blood cx negative - ceftriaxone for strep coverage (Day 3). Vancomycin (Day #3) - Pain control with Toradol, Morphine PRN. Toradol - ENT consulted, s/p I & D by Dr. Richter in clinic on 06/14/20 - DC home with PO abx: augmentin and clindamycin x 7 days #Uncontrolled diabetes, diabetic neuropathy - Patient reports that she has been unable to eat solid foods prior to admission - as intake increased, so have blood sugars - will DC patient on 45 units SC levemir BID (home dose 75 units qhs) - Sliding-scale insulin AC/QHS #Degenerative disc disease - cyclobenzaprine prn (home med) #Depression/Anxiety - bupropion #COPD -Stable -Home inhalers as needed #Gastroparesis/GERD -IV Protonix -IV metoclopramide prn #Obesity -Complicating care -Lipids, thyroid studies ordered. DVT ppx: scds. teds. lovenox. DISCHARGE MEDICATIONS: Please see below. ALLERGIES: Please see below. PHYSICAL EXAMINATION ON DISCHARGE: VITAL SIGNS: please see below General: NAD, comfortable HEENT: PERRLA, EOMI, sclerae clear Neck: supple, normal ROM, no JVD Respiratory: lungs CTAB, no wheeze, no rales, no crackles CVS: RRR, normal S1, S2, no murmurs Abdo: soft, no masses, no hepatosplenomegaly, BS+, no rebound tenderness Extremities: no edema, pulses 2+ MSK: no joint deformities, normal ROM Neuro: no focal neuro deficits, moving all 4 extremities, CN2-12 intact. Strength 5/5 in all 4 extremities. No nystagmus. Psych: calm, cooperative, AAO x 3 LABORATORY DATA: Please see below. IMAGING: Maxillofacial CT (06/10/20): Mild subcutaneous edema and skin thickening about the anterior mandible, right greater than left, consistent with cellulitis. No abscesses seen. Maxillofacial CT (06/12/20): Right anterior perimandibular subcutaneous edema with skin thickening consistent with cellulitis. There is asymmetric soft tissue confluence along the anterior right mandible, increased since 06/10/20 with no rim enhancement and may reflect phlegmon or inflammatory confluence. No adjacent periodontal disease is evident. Upper normal submental nodes and and borderline right submandibular node which are increased since prior study and may be reactive. PROGNOSIS: good ACTIVITY: As tolerated DIET: consistent carbohydrate DISCHARGE PLAN: DC home with PO abx x 7 days, PCP follow up in 3-5 days, as well as ENT follow up in 1 week DISPOSITION: DC home DISCHARGE INSTRUCTIONS: . Please follow-up with your primary care doctor within 3-5 days . Please follow-up with ENT within 1 week . Please taking medications as prescribed. Your insulin was changed on DC, long acting levemir to be taken as 45 units twice per day. . If you develop bleeding, chest pain, shortness of breath, seizures, nausea, fevers, or otherwise worsening of your symptoms, please call 911 or return to the nearest emergency room ITEMS TO FOLLOWUP ON ON OUTPATIENT: 1. Final blood cultures 2. Wound cultures DISCHARGE CONDITION: Stable TIME SPENT ON DISCHARGE: 35 minutes Vital Signs/I&Os Vital Signs Date Time Temp Pulse Resp B/P (MAP) Pulse Ox O2 Delivery O2 Flow Rate FiO2 06/14/20 06:00 97.6 74 18 132/76 (94) 98 Room Air I&O- Last 24 Hours up to 6 AM 06/14/20 05:59 Intake Total 3080 ml Output Total 600 ml Balance 2480 ml Laboratory Data Labs 24H Laboratory Tests 2 06/13/20 11:43: Bedside Glucose (Misc Panel) 332H 06/13/20 12:54: Vancomycin Level Trough 10.3 06/13/20 16:44: Bedside Glucose (Misc Panel) 287H 06/13/20 20:27: Bedside Glucose (Misc Panel) 227H 06/14/20 05:43: Nucleated Red Blood Cells % (auto) 0.0, Anion Gap 6L, Glomerular Filtration Rate > 60.0, Calcium Level 8.4L, Total Bilirubin 0.5, Aspartate Amino Transf (AST/SGOT) 35, Alanine Aminotransferase (ALT/SGPT) 56, Alkaline Phosphatase 82, Total Protein 5.9L, Albumin 2.9L, Albumin/Globulin Ratio 1.0L CBC/BMP Laboratory Tests 06/14/20 05:43 FSBS Laboratory Tests Test 06/13/20 11:43 3/7/21 16:44 06/13/20 20:27 Range/Units Bedside Glucose (Misc Panel) 332 287 227 70-105 MG/DL Microbiology Microbiology 06/12/20 Respiratory Virus Panel (PCR) (CHRISTOPHER) - Final, Complete 06/12/20 Blood Culture - Preliminary, Resulted No Growth after 48 hours. All Specime... 06/12/20 Blood Culture - Preliminary, Resulted No Growth after 48 hours. All Specime... Discharge Medications Scheduled Bupropion HCl (Bupropion Xl) 300 Mg Tab.er.24h, 300 MG PO DAILY, (Reported) Dulaglutide (Trulicity) 1.5 Mg/0.5 Ml Pen.injctr, 1.5 MG SC 1XWK, (Reported) SUNDAYS Fluticasone Furoate (Arnuity Ellipta) 100 Mcg/Act Inh, 1 PUFF INH DAILY, (Reported) Insulin Aspart (Novolog Flexpen) 100 Unit/1 Ml Insuln.pen, 1 DOSE SC AC, (Reported) PER SLIDING SCALE. NOT TO GO OVER 10 UNITS Insulin Glargine,Hum.rec.anlog (Basaglar Kwikpen U-100) 100 Unit/Ml Inj, 75 UNITS SC QHS, (Reported) Metformin HCl (Metformin HCl) 1,000 Mg Tab, 1,000 MG PO BID, (Reported) Scheduled PRN Albuterol Sulfate (Ventolin Hfa) 108 Mcg/Act Aer, 2 PUFF INH QID PRN for SHORTNESS OF BREATH, (Reported) Cyclobenzaprine HCl (Cyclobenzaprine HCl) 10 Mg Tablet, 10 MG PO TID PRN for MUSCLE SPASMS, (Reported) Metoclopramide HCl (Metoclopramide HCl) 5 Mg Tablet, 5 MG PO BIDP PRN for CONSTIPATION, (Reported) BEFORE MEALS Allergies Coded Allergies: canagliflozin (Verified Allergy, Unknown, 01/29/20) latex (Verified Allergy, Unknown, 01/29/20) gabapentin (Verified Adverse Reaction, Unknown, n/v, 01/29/20) ROBERT DEY MD Jun 14, 2020 09:26
[2020-06-14] MEDS ORDERED: DOXY100C PO (09:48)
[2020-06-14] MEDS ORDERED: AUGM875T28 PO (09:48)
[2020-06-14] MEDS ORDERED: TRAM50TA2 PO (09:48)
[2020-06-14] MEDS ORDERED: ACET1TAB55 PO ×2 (09:48→14:41)
[2020-06-14] MEDS ORDERED: BASA100I SC ×2 (09:48→14:39)
[2020-06-14 12:00] VITALS: BP 132/76
[2020-06-14 14:00] VITALS: BP 151/92
[2020-06-14] MEDS ORDERED: VANCOMYCIN HCL 750 MG, VIAL MATE ADAPTER 1 EACH in NS 250 ML IV SCH (14:00)
[2020-06-14] MEDS ORDERED: VANCOMYCIN HCL 500 MG in D5W MINI-BAG PLUS 100 ML IV SCH (15:00)
== END 2020-06-14 15:00 | disposition home or self-care (01) | DRG 603 ==
LOC: M ED 01:58 → M ED INP 03:48 → ENRESERV 07:46 → M MS5PR 08:35
PROVIDERS: ADMIT General Practice; ATTEND Family Medicine
DX: L03.211 Cellulitis of face (principal); E11.43 Type 2 diabetes mellitus with diabetic autonomic (poly)neuropathy; M79.7 Fibromyalgia; G47.33 Obstructive sleep apnea (adult) (pediatric); Z79.4 Long term (current) use of insulin; Z79.899 Other long term (current) drug therapy; Z88.8 Allergy status to other drugs, medicaments and biological substances; Z91.040 Latex allergy status; J44.9 Chronic obstructive pulmonary disease, unspecified; E66.9 Obesity, unspecified; F32.9 Major depressive disorder, single episode, unspecified; F41.9 Anxiety disorder, unspecified; K21.9 Gastro-esophageal reflux disease without esophagitis; Z68.39 Body mass index [BMI] 39.0-39.9, adult; M19.90 Unspecified osteoarthritis, unspecified site; F43.10 Post-traumatic stress disorder, unspecified; G43.909 Migraine, unspecified, not intractable, without status migrainosus; Z91.19 Patient's noncompliance with other medical treatment and regimen

== ENCOUNTER → 2020-06-14 | Outpatient (REF) | payer MEDICARE, MEDICAID ==
[~2020-06-14] MED LIST changes: +ACET1TAB55 PO; +AUGM875T28 PO; +DOXY100C PO; +TRAM50TA2 PO
== END ==
LOC: M LAB REF 14:13
PROVIDERS: ATTEND Specialist
DX: L03.211 Cellulitis of face (principal)

== ENCOUNTER → 2020-06-30 | Outpatient (REF) | payer MEDICARE, MEDICAID ==
[2020-06-30 18:16] LABS: BASO % 0.9 % (0.0-1.0); EOS # 0.1 10^3/uL (0.0-0.5); EOS % 2.8 % (0.0-3.0); HEMATOCRIT 40.4 % (36.0-47.0); HEMOGLOBIN 12.9 g/dl (12.0-15.5); LYMPH # 1.7 10^3/uL (1.5-5.0); MEAN CORPUSCULAR HEMOGLOBIN 25.3 pg (27.0-33.0); MEAN CORPUSCULAR HGB CONC 31.9 g/dl (32.0-36.5); MEAN CORPUSCULAR VOLUME 79.4 fl (80.0-96.0); MONO # 0.3 10^3/uL (0.0-0.8); MONO % 6.8 % (2.0-8.0); NEUTROPHILS # 2.4 10^3/uL (1.5-8.5); NEUTROPHILS % 52.6 % (36.0-66.0); PLATELET COUNT, AUTOMATED 146 10^3/uL (150-450); RED BLOOD COUNT 5.09 10^6/uL (4.00-5.40); WHITE BLOOD COUNT 4.6 10^3/uL (4.0-10.0)
[2020-06-30 18:50] LABS: ALT/SGPT 52 U/L (12-78); BILIRUBIN,TOTAL 0.4 MG/DL (0.2-1.0); BLOOD UREA NITROGEN 10 MG/DL (7-18); CALCIUM LEVEL 8.7 MG/DL (8.5-10.1); CARBON DIOXIDE LEVEL 26 MEQ/L (21-32); CHLORIDE LEVEL 100 MEQ/L (98-107); CHOLESTEROL LEVEL 165 MG/DL (<200); CREATININE FOR GFR 0.58 MG/DL (0.55-1.30); GLOMERULAR FILTRATION RATE > 60.0 (>58); GLUCOSE, FASTING 341 MG/DL (70-100); POTASSIUM SERUM 4.1 MEQ/L (3.5-5.1); SODIUM LEVEL 133 MEQ/L (136-145); TRIGLYCERIDES LEVEL 563 MG/DL (<150)
[2020-06-30 18:51] LABS: ALBUMIN 3.5 GM/DL (3.2-5.2); CHOLESTEROL RISK RATIO 6.346 (<5); HDL CHOLESTEROL 26 MG/DL (>40); NON-HDL-C 139 MG/DL; TOTAL PROTEIN 6.5 GM/DL (6.4-8.2)
[2020-06-30 19:32] LABS: HEMOGLOBIN A1c 11.2 %
== END ==
LOC: M LAB REF 16:13
PROVIDERS: ATTEND Physician Assistant
DX: E11.65 Type 2 diabetes mellitus with hyperglycemia (principal); L03.90 Cellulitis, unspecified

== ENCOUNTER → 2020-07-29 | Outpatient (CLI) | payer MEDICARE, MEDICAID ==
--- NOTE | 2020-07-29 10:24 | REP ---
INDICATION: PAIN IN RIGHT ELBOW. COMPARISON: Comparison right elbow radiographs are from May 29, 2018.. TECHNIQUE: Four views of the right elbow are provided. FINDINGS: Four views of the right elbow demonstrate normal bones, joints, and soft tissues. No fracture or subluxation is seen. No opaque foreign body noted. IMPRESSION: Negative right elbow series. <Electronically signed by Jose Gayle > 07/29/20 1023
== END ==
LOC: M RAD 09:38
PROVIDERS: ATTEND Pediatrics
DX: M25.521 Pain in right elbow (principal)

== ENCOUNTER → 2020-09-07 | Outpatient (CLI) | payer MEDICARE, MEDICAID ==
[2020-09-07 10:42] LABS: BLOOD UREA NITROGEN 14 MG/DL (7-18); CREATININE FOR GFR 0.54 MG/DL (0.55-1.30); GLOMERULAR FILTRATION RATE > 60.0 (>58)
== END ==
LOC: M LAB 08:15
PROVIDERS: ATTEND Physician Assistant
DX: M77.01 Medial epicondylitis, right elbow (principal)

== ENCOUNTER → 2020-09-10 | Outpatient (CLI) | payer MEDICARE, MEDICAID ==
[~2020-09-10] MED LIST changes: +PROHANCE 279.3MG/ML 15ML VIAL As Ordered ONE; +PROHANCE 279.3MG/ML 5ML VIAL As Ordered ONE
--- NOTE | 2020-09-10 20:45 | REPVR ---
PROCEDURE INFORMATION: Exam: MR Lumbar Spine Without and With Contrast Exam date and time: 09/10/2020 7:20 PM Age: 40 years old Clinical indication: Condition or disease; Disc degeneration; Lumbar sacral region; Additional info: Dd lumbar region TECHNIQUE: Imaging protocol: Multiplanar magnetic resonance images of the lumbar spine without and with intravenous contrast. Contrast material: PROHANCE; Contrast volume: 20 ml; Contrast route: INTRAVENOUS (IV); COMPARISON: No relevant prior studies available. FINDINGS: Vertebrae: Advanced facet DJD in the lower lumbar spine. Normal alignment. Prior L5-S1 laminectomy. Spinal cord: Conus medullaris terminates in normal position at L1. Conus medullaris is unremarkable. L1-L2: No disc herniation or spinal stenosis. No significant foraminal stenosis. L2-L3: No disc herniation or spinal stenosis. No significant foraminal stenosis. L3-L4: No disc herniation or spinal stenosis. No significant foraminal stenosis. L4-L5: No disc herniation or spinal stenosis. No significant foraminal stenosis. Advanced facet DJD and hypertrophy. L5-S1: Severe disc degeneration with loss of intervertebral disc height. Large midline posterior disc protrusion measuring 13 x 14 x 7 mm. No cauda equina compression. Chronic endplate degenerative changes. Soft tissues: Mild intramuscular edema in the posterior sacral musculature. Paraspinal soft tissues are unremarkable. No mass or abnormal contrast enhancement. IMPRESSION: 1. Advanced disc degeneration at L5-S1 with large posterior disc protrusion. 2. Advanced lower lumbar facet DJD. Electronically signed by: Hebert Kaiser On 09/10/2020 20:45:52 PM
== END ==
LOC: M RAD 17:26
PROVIDERS: ATTEND Physician Assistant
DX: M51.36 Other intervertebral disc degeneration, lumbar region (principal); Z98.890 Other specified postprocedural states; M51.26 Other intervertebral disc displacement, lumbar region
CPT/HCPCS: 72158; A9576

== ENCOUNTER 2020-09-20 09:01 | Emergency (ER) | payer MEDICARE, MEDICAID ==
[~2020-09-20] VITALS: Ht 167.6 cm; Wt 114.0 kg
[~2020-09-20 09:01] MED LIST changes: -PROHANCE 279.3MG/ML 15ML VIAL As Ordered ONE; -PROHANCE 279.3MG/ML 5ML VIAL As Ordered ONE
[2020-09-20] MEDS ORDERED: TRIA1CR80 TOP (09:12)
[2020-09-20] MEDS ORDERED: ONDANSETRON 4MG/2ML VIAL IV ONE (10:30)
[2020-09-20] MEDS ORDERED: NS 1,000 ML IV ONE (10:30)
[2020-09-20] MEDS ORDERED: KETOROLAC 30 MG/ML 1ML VIAL IV ONE (10:30)
[2020-09-20 11:54] LABS: BASO % 0.7 % (0.0-1.0); EOS # 0.1 10^3/uL (0.0-0.5); EOS % 2.2 % (0.0-3.0); HEMATOCRIT 43.2 % (36.0-47.0); HEMOGLOBIN 13.7 g/dl (12.0-15.5); LYMPH # 1.8 10^3/uL (1.5-5.0); LYMPH % 34.2 % (24.0-44.0); MEAN CORPUSCULAR HEMOGLOBIN 25.9 pg (27.0-33.0); MEAN CORPUSCULAR HGB CONC 31.7 g/dl (32.0-36.5); MEAN CORPUSCULAR VOLUME 81.7 fl (80.0-96.0); MONO # 0.3 10^3/uL (0.0-0.8); MONO % 5.6 % (2.0-8.0); NEUTROPHILS % 56.6 % (36.0-66.0); PLATELET COUNT, AUTOMATED 143 10^3/uL (150-450); RED BLOOD COUNT 5.29 10^6/uL (4.00-5.40); WHITE BLOOD COUNT 5.4 10^3/uL (4.0-10.0)
[2020-09-20] MEDS ORDERED: ISOVUE-370 76% 100ML VIAL As Ordered ONE (12:06)
[2020-09-20 12:21] LABS: ALBUMIN 3.5 GM/DL (3.2-5.2); ALT/SGPT 65 U/L (12-78); BILIRUBIN,DIRECT < 0.1 MG/DL (0.0-0.2); BILIRUBIN,TOTAL 0.4 MG/DL (0.2-1.0); LIPASE 88 U/L (73-393)
--- NOTE | 2020-09-20 12:45 | REP ---
INDICATION: rlq pain. COMPARISON: Multiple the latest 09/29/2017 TECHNIQUE: Standard helical technique after the intravenous administration of 100 cc Isovue 370. No oral bowel preparatory contrast was administered prior to the exam. This causes exam limitations. FINDINGS: The lung bases are clear. The liver, spleen, pancreas, adrenal glands, and kidneys are within normal limits. The abdominal aorta and para-aortic regions are within normal limits. The bowel loops and the mesenteries are within normal limits. The appendix is well visualized and is within normal limits. There is no free fluid or free air. There is no evidence of a mass or adenopathy. Bone window technique throughout the examination shows no significant changes in the appearance of the osseous structures. IMPRESSION: There is no evidence of acute disease. Findings as described above. <Electronically signed by Wali Davila > 09/20/20 [id number]
[2020-09-20] MEDS ORDERED: MACR100C43 PO (13:06)
[2020-09-20 13:19] VITALS: BP 138/78
== END 2020-09-20 13:45 | disposition home or self-care (01) ==
LOC: M ED 09:01
DX: N39.0 Urinary tract infection, site not specified (principal); E11.65 Type 2 diabetes mellitus with hyperglycemia; K21.9 Gastro-esophageal reflux disease without esophagitis; F41.9 Anxiety disorder, unspecified; F32.9 Major depressive disorder, single episode, unspecified; J45.909 Unspecified asthma, uncomplicated; J44.9 Chronic obstructive pulmonary disease, unspecified; M79.7 Fibromyalgia; G43.909 Migraine, unspecified, not intractable, without status migrainosus; E28.2 Polycystic ovarian syndrome; Z86.14 Personal history of Methicillin resistant Staphylococcus aureus infection; E66.9 Obesity, unspecified; Z79.4 Long term (current) use of insulin; Z79.899 Other long term (current) drug therapy; Z88.8 Allergy status to other drugs, medicaments and biological substances; Z91.040 Latex allergy status
CPT/HCPCS: 74177; 80047; 80076; 81001; 83690; 84702; 85025; 87086; 96361; 96374; 96375; 99284; J1885; J2405; Q9967

== ENCOUNTER → 2020-10-14 | Outpatient (REF) | payer MEDICARE, MEDICAID ==
[~2020-10-14] MED LIST changes: +TRIA1CR80 TOP
== END ==
LOC: M LAB REF 17:46
PROVIDERS: ATTEND Surgery
DX: M79.89 Other specified soft tissue disorders (principal); R22.42 Localized swelling, mass and lump, left lower limb

== ENCOUNTER → 2020-12-03 | Outpatient (CLI) | payer MEDICARE, MEDICAID ==
[~2020-12-03] MED LIST changes: -CLIN150C15 PO; +CLIN150C17 PO; -DOXY100C PO; +DOXY100C3 PO
== END ==
LOC: M PT 08:05
PROVIDERS: ATTEND Pediatrics
DX: M14.672 Charcot's joint, left ankle and foot (principal)

== ENCOUNTER 2020-12-30 02:14 | Emergency (ER) | payer MEDICARE, MEDICAID ==
[~2020-12-30] VITALS: Ht 167.6 cm; Wt 111.4 kg
[2020-12-30] MEDS ORDERED: ACETAMINOPHEN 500 MG TAB PO ONE (08:05)
[2020-12-30] MEDS ORDERED: LIDOCAINE 4% CREAM 5GM (LMX4) TOP ONE (08:05)
--- NOTE | 2020-12-30 08:05 | REP ---
INDICATION: tearing sensation wrist. COMPARISON: Comparison forearm series on the right is from May 29, 2018. TECHNIQUE: Four views of the right wrist. FINDINGS: Four views of the right wrist demonstrate normal overall mineralization. Bones, joints, and soft tissues are radiographically unremarkable. IMPRESSION: Negative radiographs of the right wrist. <Electronically signed by Jose Gayle > 12/30/20 0802
--- NOTE | 2020-12-30 08:51 | REP ---
INDICATION: forearm numbness, pain, r/o dvt COMPARISON: None. TECHNIQUE: Real time compression and duplex Doppler evaluation of the Right upper extremity deep venous system is performed. FINDINGS: The Right subclavian, jugular, axillary, brachial, basilic and cephalic veins are fully compressible where accessible with transducer pressure, and demonstrate no intraluminal thrombus and normal venous waveforms. There is no evidence of deep venous thrombosis.The Left subclavian vein is fully compressible where accessible with transducer pressure, and demonstrates no intraluminal thrombus and normal venous waveforms. IMPRESSION: No evidence of deep venous thrombosis of the Right upper extremity deep vein system. <Electronically signed by Enrique Forrester > 12/30/20 [id number]
[2020-12-30] MEDS ORDERED: DICL20GE TP (09:25)
[2020-12-30 09:34] VITALS: BP 136/86
== END 2020-12-30 09:43 | disposition home or self-care (01) ==
LOC: M ED 02:14
DX: M25.531 Pain in right wrist (principal); G56.01 Carpal tunnel syndrome, right upper limb; M79.601 Pain in right arm; E11.9 Type 2 diabetes mellitus without complications; J44.9 Chronic obstructive pulmonary disease, unspecified; M79.7 Fibromyalgia; R51.9 Headache, unspecified; Z79.4 Long term (current) use of insulin; Z79.899 Other long term (current) drug therapy; Z88.8 Allergy status to other drugs, medicaments and biological substances; Z91.040 Latex allergy status

== ENCOUNTER → 2021-02-23 | Outpatient (REF) | payer MEDICARE, MEDICAID ==
[~2021-02-23] MED LIST changes: +AMLO1TAB24 PO; +ANUSHCSU PR; +CLON0.1D3 TOP; +COLA100C5 PO; +DICL20GE TP; +DULA4.5P SC; +HYDR25SU23 PR; +MIRA1POW3 PO
== END ==
LOC: M LAB REF 16:31
PROVIDERS: ATTEND Podiatrist Foot & Ankle Surgery
DX: L03.031 Cellulitis of right toe (principal)

== ENCOUNTER 2021-02-25 02:26 | Inpatient (IN) | payer MEDICARE, MEDICAID ==
[~2021-02-25] VITALS: Ht 167.6 cm; Wt 107.9 kg
[~2021-02-25 02:26] MED LIST changes: -AMLO1TAB24 PO; -ANUSHCSU PR; -CLON0.1D3 TOP; -COLA100C5 PO; -DULA4.5P SC; -HYDR25SU23 PR; -MIRA1POW3 PO
--- OUTSIDE RECORDS SUMMARY | 2021-02-25 02:36 | CCD | Continuity of Care Document ---
Author Author Dara PEREYRA DPM Organization Unknown Address [address] [place] [address], [address] [place] [address] Phone [phone] Care Team Providers Care Dx Board Operator Name Role Phone [facility] AUTM MD Ailyn Kothari AUTM [phone] Problems Active Problems Provider Date Hallux valgus (acquired), unspecified foot Chang Pereyra DPM Onset: 12/30/2015 Corns and callus Chang Pereyra DPM Onset: 12/30/2015 Bunion Chang Pereyra DPM Onset: 10/06/2019 Type 1 diabetes mellitus uncontrolled Chang Pereyra DPM O nset: 10/06/2019 Cellulitis of toe of left foot Chang Pereyra DPM Onset: 1 04/25/2020 Multiple 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 Remberto Pereyra DPM Onset: 02/23/2021 Acute osteomyelitis of ankle and/or foot RODNEY Llamas Onset: 02/23/2021 Pressure ulcer of toe of left foot stage 4 Chang Pereyra DPM Onset: 02/23/2021 Social History Type Date Description Comments Sex Unknown ETOH Use Occasionally consumes alcohol Tobacco Use Start: Unknown Patient has never smoked Allergies and adverse reactions Active Allergies Criticality Reaction | Severity Comments Date Gabapentin Unable to assess criticality Vomiting 11/13/2013 Invokana Unable to assess criticality hives 11/13/2013 Medications Active Medications SIG Qnty Indications Ordering Provide r Date Bactrim DS 800-160mg Tablets 1 tab by mouth twice daily 28tabs Chang Pereyra DPM 11/17/202 1 Cephalexin 500mg Capsules 1 by mouth twice a day 20caps Chang Pereyra DPM 11/11/2019 Urea 20% Cream a pply to callus on feet daily 85gm Chang Pereyra DPM 03/27/2017 Lac-Hydrin 12% Cream apply as directed twice a day to feet 280g Chang Pereyra DPM 016 Glyburide 2.5mg Tablets Jorge Hawk NP Metformin HCL 1000mg Tablets Jorge Hawk NP Michelle-Be 0.35mg Tablets Unknown Tranexamic Acid 650mg Tablets Unknown Ciprofloxacin HCL 500mg Tablets Unknown Imiquimod 5% Cream Unknown Glimepiride 2mg Tablets Unknown Wellbutrin XL Unknown Immunizations Description No Information Available Vital Signs Date Vital Result Comment 09/29/2019 9:15am Height 67 inches 5'7" Weight 240.00 lb BP Systolic 123 mmHg BP Diastolic 82 mmHg Heart Rate 87 /min BMI (Body Mass Index) 37.6 kg/m2 06/27/2018 2:51pm Height 67 inches 5'7" Weight 265.00 lb BP Systolic 124 mmHg BP Diastolic 86 mmHg Heart Rate 80 /min BMI (Body Mass Index) 41.5 kg/m2 Results Description No Information Available Procedures Date Code Description Status 02/23/2021 21895 Office/Outpatient Established Lo w MDM 20-29 Min Completed 02/23/2021 67350 Debridement Tissue/Muscle/Bone C ompleted 02/04/2021 05382 Office/Outpatient Established SF MDM 10-19 Min Completed 11/26/2020 33371 Debridement 6-10 [employer] Completed 09/17/2020 59889 Office/Outpatient Established SF MDM 10-19 Min Completed Medical Devices Description No Information Available Encounters Type Date Location Provider Dx Diagnosis Office Visit 02/23/2021 1:15p [facility] Chang Pereyra DPM L03.032 Cellulitis of left toe E10.65 Type 1 diabetes mellitus wit h hyperglycemia E10.621 Type 1 diabetes mellitus wit h foot ulcer M86.172 Other acute osteomyelitis, l eft ankle and foot L89.894 Pressure ulcer of other site , stage 4 Office Visit 02/04/2021 3:00p [facility] Chang Pereyra DPM 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 L84 Corns and callosities E10.65 Type 1 diabetes mellitus wit h hyperglycemia Office Visit 09/17/2020 2:30p [facility] Chang Pereyra DPM B35.1 Tinea unguium E10.42 Type 1 diabetes mellitus wit h diabetic polyneuropathy Assessments Date Code Description Provider 02/23/2021 L03.032 Cellulitis of left toe Chang Pereyra, BILLY 02/23/2021 E10.65 Type 1 diabetes mellitus with hy perglycemia Chang Pereyra DPM 02/23/2021 E10.621 Type 1 diabetes mellitus with fo ot ulcer Chang Pereyra DPM 02/23/2021 M86.172 Other acute osteomyelitis, left ankle and foot Chang Pereyra DPM 02/23/2021 L89.894 Pressure ulcer of other site, st age 2 Chang Pereyra DPM 02/04/2021 E11.610 Type 2 diabetes eliot itus with diabetic neuropathic arthropathy Chang Pereyra DPM 02/04/2021 L84 Corns and callosities Chang Pereyra, BILLY 02/04/2021 E10.65 Type 1 diabetes mellitus with hy perglycemia Chang Pereyra DPM 11/26/2020 B35.1 Tinea unguium Chang Pereyra, BILLY 11/26/2020 L60.0 Ingrowing nail Chang Pereyra DPM 11/26/2020 M79.676 Pain in unspecified toe(s) Remberto Pereyra DPM 11/26/2020 E10.9 Type 1 diabetes mellitus without complications Chang Pereyra DPM 09/17/2020 B35.1 Tinea unguium Chang Pereyra, BILLY 09/17/2020 E10.42 Type 1 diabetes mellitus with di abetic polyneuropathy Chang Pereyra DPM Plan of Treatment Future Appointment(s):* 02/25/2021 10:45 am - Chang Pereyra DPM at [facility] * 04/22/2021 3:00 pm - Chang Pereyra DPM at [facility] Functional Status Description No Information Available Mental Status Description No Information Available Referrals Description No Information Available
[2021-02-25] MEDS ORDERED: BACT800T5 PO (02:37)
--- OUTSIDE RECORDS SUMMARY | 2021-02-25 02:37 | CCD | Continuity of Care Document ---
Author Author Dara PEREYRA DPM Organization Unknown Address [address] [place] [address], [address] [place] [address] Phone [phone] Care Team Providers Care Building Cleaning Supervisor Name Role Phone [facility] AUTM MD Ailyn Kothari AUTM [phone] Problems Active Problems Provider Date Hallux valgus (acquired), unspecified foot Chang Pereyra DPM Onset: 12/30/2015 Corns and callus Chang Pereyra DPM Onset: 12/30/2015 Bunion Chang Pereyra DPM Onset: 10/06/2019 Type 1 diabetes mellitus uncontrolled Chang Pereyra DPM O nset: 10/06/2019 Social History Type Date Description Comments Sex Unknown ETOH Use Occasionally consumes alcohol Tobacco Use Start: Unknown Patient has never smoked Allergies and adverse reactions Active Allergies Criticality Reaction | Severity Comments Date Gabapentin Unable to assess criticality Vomiting 11/13/2013 Invokana Unable to assess criticality hives 11/13/2013 Medications Active Medications SIG Qnty Indications Ordering Provide r Date Cephalexin 500mg Capsules 1 by mouth twice [...] Information Available Procedures Date Code Description Status 02/04/2021 06071 Office/Outpatient Established SF MDM 10-19 Min Completed 11/26/2020 49069 Debridement 6-10 [employer] Completed 09/17/2020 80239 Office/Outpatient Established SF MDM 10-19 Min Completed Medical Devices Description No Information Available Encounters Type Date Location Provider Dx Diagnosis Office Visit 02/04/2021 3:00p [facility] Chang Pereyra DPM 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 L84 Corns and callosities E10.65 Type 1 diabetes mellitus wit h hyperglycemia Office Visit 09/17/2020 2:30p [facility] Chang Pereyra DPM B35.1 Tinea unguium E10.42 Type 1 diabetes mellitus wit h diabetic polyneuropathy Office Visit 08/13/2020 2:30p [facility] Chang Pereyra DPM Z48.89 Encounter for other specified surgical aftercare Assessments Date Code Description Provider 02/04/2021 E11.610 Type 2 diabetes eliot itus with diabetic neuropathic arthropathy Chang Pereyra DPM 02/04/2021 L84 Corns and callosities Chang Pereyra DPM 02/04/2021 E10.65 Type 1 diabetes mellitus with hy perglycemia Chang Pereyra DPM 11/26/2020 B35.1 Tinea unguium Chang Pereyra DPM 11/26/2020 L60.0 Ingrowing nail Chang Pereyra, BILLY 11/26/2020 M79.676 Pain in unspecified toe(s) Remberto Pereyra DPM 11/26/2020 E10.9 Type 1 diabetes mellitus without complications Chang Pereyra DPM 09/17/2020 B35.1 Tinea unguium Chang Pereyra DPM 09/17/2020 E10.42 Type 1 diabetes mellitus with di abetic polyneuropathy Chang Pereyra DPM 08/13/2020 Z48.89 Encounter for other specified anderson rgical aftercare Chang Pereyra DPM Plan of Treatment Future Appointment(s):* 04/22/2021 3:00 pm - Chang Pereyra DPM at [facility] Functional Status Description No Information Available Mental Status Description No Information Available Referrals Description No Information Available
--- OUTSIDE RECORDS SUMMARY | 2021-02-25 02:37 | CCD | Continuity of Care Document ---
Author Author Dara PEREYRA DPM Organization Unknown Address [address] [place] [address], [address] [place] [address] Phone [phone] Care Team Providers Care Pie Chef Name Role Phone [facility] AUTM MD Ailyn Kothari AUTM [phone] Problems Active Problems Provider Date Hallux valgus [...] Available Procedures Date Code Description Status 02/23/2021 43651 Office/Outpatient Established Lo w MDM 20-29 Min Completed 02/23/2021 09233 Debridement Tissue/Muscle/Bone C ompleted 02/04/2021 35596 Office/Outpatient Established SF MDM 10-19 Min Completed 11/26/2020 85321 Debridement 6-10 [employer] Completed 09/17/2020 12942 Office/Outpatient Established SF MDM 10-19 Min Completed Medical Devices Description No Information Available Encounters Type Date Location Provider Dx Diagnosis Office Visit 02/23/2021 1:15p [facility] Chang Pereyra DPM L03.032 Cellulitis of left toe E10.65 Type 1 diabetes mellitus wit h hyperglycemia E10.621 Type 1 diabetes mellitus wit h foot ulcer M86.172 Other acute osteomyelitis, l eft ankle and foot L89.894 Pressure ulcer of other site , stage 4 Office Visit 02/04/2021 3:00p [facility] Chang Pereyra DPM 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
--- OUTSIDE RECORDS SUMMARY | 2021-02-25 02:37 | CCD ---
Author Dara So Organization Unknown Address [address] [address] Phone Care Team Providers Care Configuration Manager Name Role Phone Manuel Brittni PCP Allergies, Adverse Reactions, Alerts No Data in Section Problem List Concept Problem Description Status Start Date Created Date Resolv ed Date Snomed Code F41.9 Unspecified Anxiety Disorder Active 07/11/2019 07/11/2019 F33.1 Major Depressive Disorder, Recurrent episode, Moderate Active 01/07/2021 F43.10 Posttraumatic Stress Disorde r (includes Posttraumatic Stress Disorder for Children 6 Years and Younger) Active 01/07/2021 Medications Rx Norm Medication Route Route Concept Start Date Stop Date Dosage Dominick quency Duration Formula Strength Dosage Form Dosage Form Code Dosage Description Medication Id Account Npid Author First Name Author Last Name Taxonomy Code Taxonomy Desc Phone Number [id number] bupropion HCl by mouth [id number] 05/25/2020 03/14/2021 once a day 90 300 mg tablet extended release 24 hr [id number] Macr Ambrocio [id number] Psychiatry [id number] Social History Social History Element Description Concept Effective Date Smoking Status Unknown if ever smoked [id number] Immunizations No Data in Section Vital Signs No Data in Section Procedures Date Concept Id Description Targeted Site Concept Targeted Site Concept Type 01/06/2021 44887-52 [facility] 30" Psychotherapy CPT Patient has no history of implantable de vices Encounters Encounter Start Date End Date Encounter Type Description Diagnosis Di agnosis Desc Location Author First Name Author Last Name Npid Taxonomy Cod e Taxonomy Desc Phone Number Location Addr1 Location Addr2 Location City Location [place] Location Zip [id number] 01/06/2021 01/06/2021 [address]06-73 TEMPMH[facility]elemed 30" Psychothe rapy F41.9 Anxiety Disorder, Unspecified Community [facility] Manuel Elkins [phone] [id number] Car Wash Attendant [phone] [address] [address] Plan of Treatment No Data in Section Lab Results No Data in Section Instructions No Data in Section Insurance Providers Insurance Id Policy Effective Date Policy Thru Date Company N jennifer [id number] 2004 MEDICARE [id number] MEDICAID
--- OUTSIDE RECORDS SUMMARY | 2021-02-25 02:37 | CCD ---
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 Name Role Phone DAQUAN PEREYRA MD 2 [phone] [facility] 2 [phone] [facility] 2 [phone] DANIELLE DE LA ROSA 2 [phone] [facility] 212 [phone] [facility] 157 [phone] JOSE FRANCISCO BYNUM MD 2 [phone] NICHOLE BRADSHAW MD 3 [phone] Allergies Code Code System Name Reaction Severity Status Onset 43284 RxNorm Gabapentin Active [id number] RxNorm Invokana Active Latex, Natural Rubber Active Notes: Some allergies listed in Document s: #[id number], #[id number], #[id number] could not be added to this patient's chart. Please review these documents and add these allergies to the patient's chart manually as needed. Medications Name Status Start Date Stop Date Accu-Chek Fastclix Lancet Drum USE THREE TIMES A DAY Active Not available Accu-Chek Guide test strips USE THREE TIMES A DAY Active Not available Adult Low Dose Aspirin 81 mg tablet,denys yed release Take 1 tablet as needed by oral route. Active Not available amoxicillin 875 mg-potassium clavulanate 125 mg tablet TAKE ONE TABLET BY MOUTH TWICE A DAY Completed Arnuity Ellipta 100 mcg/actuation powder for inhalation Active Not available Basaglar KwikPen U-100 Insulin 100 unit/mL (3 mL) subcutaneous A ctive Not available BD Ultra-Fine Original Pen Needle 29 gau ge x 1/2" USE FIVE TIMES DAILY Active Not available bupropion HCl XL 150 mg 24 hr tablet, ex tended release TAKE ONE TABLET BY MOUTH EVERY MORNING WITH 300MG Completed 06/23/2020 bupropion HCl XL 300 mg 24 hr tablet, extended release Active Not available bupropion HCl XL 450 mg 24 hr tablet, ex tended release TAKE ONE TABLET BY MOUTH EVERY MORNING Completed 06/23/2020 celecoxib 100 mg capsule Completed cephalexin 500 mg capsule Completed 2020 ciprofloxacin 500 mg tablet Completed 06/07 clindamycin HCl 150 mg capsule TAKE THREE CAPSULES BY MOUTH THREE TIMES A DAY Completed 06/23/2020 clonidine HCl 0.1 mg tablet TAKE ONE TABLET BY MOUTH TWICE A DAY Completed cyclobenzaprine 10 mg tablet TAKE ONE TABLET BY MOUTH THREE TIMES A DAY NEEDED Active Not available Deblitane 0.35 mg tablet TAKE ONE TABLET BY MOUTH EVERY DAY Completed 06/07 doxycycline hyclate 100 mg capsule TAKE ONE CAPSULE BY MOUTH TWICE A DAY Completed 06/23/2020 famotidine 20 mg tablet TAKE ONE TABLET BY MOUTH EVERY DAY AT BEDTIME NEEDED Completed 06/23/2020 Farxiga 10 mg tablet TAKE ONE TABLET BY MOUTH EVERY DAY Completed 06/07 fluconazole 150 mg tablet TAKE 1 TABLET BY MOUTH ONCE Completed 06/23/2020 ibuprofen 200 mg capsule Take 1 capsule every 6 hours by oral route. Completed 10/29/2020 metformin 1,000 mg tablet Active Not av ailable metoclopramide 5 mg tablet Active Not a vailable nitrofurantoin 100 mg tablet Take by oral route. Completed 09/27/2020 nitrofurantoin monohydrate/macrocrystals 100 mg capsule TAKE ONE CAPSULE BY MOUTH TWICE A DAY Completed 10/29/2020 Novolog Flexpen U-100 Insulin aspart 100 unit/mL (3 mL) subcutaneous INJECT UNDER THE SKIN PER SLIDING SCALE MAXIMUM DAILY DOSE 20 UNITS Active Not available ondansetron 8 mg disintegrating tablet DISSOLVE 1 TABLET UNDER THE TONGUE TWO TIMES A DAY Completed 10/29/2020 ondansetron HCl 4 mg tablet TAKE ONE TABLET BY MOUTH FOUR TIMES A DAY NEEDED Completed 07/28/2020 pantoprazole 40 mg tablet,delayed release Completed 07/28/2020 prazosin 1 mg capsule TAKE 1 CAPSULE BY MOUTH EVERY NIGHT NEEDED FOR NIGHTMARES ASSOCIATED WITH PTSD Completed 06/23/2020 ranitidine 150 mg tablet TAKE ONE TABLET BY MOUTH TWICE A DAY Completed sucralfate 1 gram tablet TAKE ONE TABLET BY MOUTH FOUR TIMES A DAY NEEDED Completed 06/23/2020 sulfamethoxazole 800 mg-trimethoprim 160 mg tablet TAKE ONE TABLET BY MOUTH EVERY 12 HOURS Completed 06/23/2020 sumatriptan 50 mg tablet TAKE ONE TABLET BY MOUTH TWICE A DAY NEEDED Completed 06/23/2020 tramadol 50 mg tablet Completed 07/28/2020 triamcinolone acetonide 0.1 % topical cream Active Not available Trulicity 0.75 mg/0.5 mL subcutaneous pen injector Completed 01/05/2021 Trulicity 1.5 mg/0.5 mL subcutaneous pen injector Completed 01/05/2021 Trulicity 3 mg/0.5 mL subcutaneous pen injector Completed 01/05/2021 Trulicity 4.5 mg/0.5 mL subcutaneous pen injector Inject 4.5 mg every week by subcutaneous route. Active Not available venlafaxine 75 mg tablet TAKE ONE TABLET BY MOUTH EVERY DAY WITH FOOD Completed 06/23/2020 Ventolin HFA 90 mcg/actuation aerosol in haler INHALE TWO PUFFS BY MOUTH FOUR TIMES A DAY NEEDED Active Not available Notes: Hemmoroidal Cream as needed. Some medications listed in Documents: #[id number], #[id number] could not be added to this patient's chart. Please review these documents and add these medications to the patient's chart manually as needed. Problems Name Status Onset Date Source Charcot's Arthropathy Active 06/23/2020 Type 2 Diabetes Mellitus Active 06/23/2020 Anxiety Active 06/23/2020 Posttraumatic Stress Disorder Active 06/23/2020 Depressive Disorder Active 06/23/2020 Migraine Active 06/23/2020 Asthma Unknown 06/23/2020 Chronic Obstructive Lung Disease Active 06/23/2020 Gastroesophageal Reflux Disease Active 06/23/2020 Gastroparesis Syndrome Active 06/23/2020 Osteoarthritis Active 06/23/2020 Degeneration of Intervertebral Disc Active 06/23/2020 Fibromyalgia Active 06/23/2020 Sleep Apnea Active 06/23/2020 History of Methicillin Resistant Staphylococcus Aureus Infec tion Active 06/23/2020 Polycystic Ovary Syndrome Active 06/23/2020 Human Papillomavirus Deoxyribonucleic Ac id Test Positive, High Risk on Cervical Specimen Active 07/27/2020 Mild Persistent Asthma Active 09/01/2020 Hyperlipidemia Active 01/05/2021 Carpal Tunnel Syndrome of Right Wrist Active 01/05/2021 Procedures Date Name Performed by Cholecystectomy Information not avai lable Operation on Uvula Information not avai lable Endoscopy Information not avai lable Tonsillectomy Information not avai lable Carpal Tunnel Surgery Notes: bilateral Information not available 07/28/2020 XR, Elbow, 3 or More View [facility] [address] [place] [address] (Work Place) 01/05/2021 MAMMO, Screening, Digital, Bilateral [facility] [address] [place] [address] (Work Place) Notes: Herniated/bulging discs, hand (BI L) surgery Results Lab Results Date Name Specimen Result Interpretation Description Value Range Status Address 11/24/2020 Hepatitis C Antibody and HIV 1/2, Screen and Diagnostic Panel W/reflexes Blood venous Hepatitis C Antibody nonreactive nonreactive Final [facility]: [address] [facility] Blood venous Index 0.01 ratio <1.00 ratio [facility]: [address] [facility] Blood venous HIV Ag/Ab, 4TH Gen non-reacti ve non-reactive [facility]: [address] [facility] 11/24/2020 HBsAg (Hepatitis B Surface Ag), Serum Blood venous Normal Hepatitis B Surface Antigen non-reactive non-reactive [facility]: [address] [facility] 11/24/2020 Hepatitis B Surface Ab, Qualitative, Serum Blood venous N ormal Hepatitis B Surface Antibody Ql non-reactive non-reactive [facility]: [address] [facility] 11/24/2020 Hepatitis a Ab, Total, Serum Blood venous Normal Hepatitis a Ab, Total non-reactive non-reactive [facility]: [address] [facility] 11/24/2020 Tsh Normal Tsh 1.33 mIU/L Final [facility]: [address] [facility] 11/24/2020 HbA1C (Hemoglobin a1C), Blood Blood venous High Hemoglobin a1C 12.8 % of total HGB <5.7 % of total HGB Final [facility]: [address] [facility] 11/03/2020 Gamma-glutamyl Transferase (Ggt), Serum Blood venous Nae l Ggt 41 U/L 3-55 U/L Final [facility]: [address] [facility] 11/03/2020 Hepatic Function Panel, Serum Blood venous Normal Protein, Total 6.6 g/dL 6.1-8.1 g/dL Final [facility]: [address] [facility] Blood venous Normal Albumin 4.0 g/dL 3.6-5.1 g/dL Final [facility]: [address] [facility] Blood venous Normal Globulin 2.6 g/dL (calc) 1.9- 3.7 g/dL (calc) Final [facility]: [address] [facility] Blood venous Normal Albumin/globulin Ratio 1 .5 (calc) 1.0-2.5 (calc) Final [facility] [address] [facility] Blood venous Normal Bilirubin, Total 0.5 mg/dL 0. 2-1.2 mg/dL Final [facility]: [address] [facility] Blood venous Normal Bilirubin, Direct 0.1 mg/dL < or = 0.2 mg/dL Final [facility]: [address] [facility] Blood venous Normal Bilirubin, Indirect 0.4 mg/dL (calc) 0.2-1.2 mg/dL (calc) [facility] [place] [facility]: [address] [facility] Blood venous Normal Alkaline Phosphatase 66 U/L 3 1-125 U/L Final [facility]: [address] [facility] Blood venous Normal Ast 24 U/L 10-30 U/L Final [facility]: [address] [facility] Blood venous High Alt 34 U/L 6-29 U/L Final [facility]: [address] [facility] 11/03/2020 Mitochondrial Ab, Serum Blood venous Normal Mitochondrial Ab Screen negative negative Final [facility]: [address] [facility] 11/03/2020 RAINA (Antinuclear Antibodies) Screen, Serum Blood venous Normal anachoice(R) Screen negative negative [facility] [address] [facility] 10/20/2020 Lipid Panel, Serum Normal Cholesterol, Tota l 178 mg/dL <200 mg/dL Final [facility] [facility] [facility] Low HDL Cholesterol 33 mg/dL > or = 50 m g/dL Final [facility]: [facility] High Triglycerides 336 mg/dL <150 mg/dL F inal [facility]: [address] [facility] High LDL-cholesterol 100 mg/dL (calc) Final [facility]: [address] [facility] High Chol/hdlc Ratio 5.4 (calc) <5.0 (philip c) [facility]: [address] [facility] High Non HDL Cholesterol 145 mg/dL (calc) <130 mg/dL (calc) [facility]: [address] [facility] 10/20/2020 Microalbumin/creatinine, Mass Ratio, Urine Creatinine, Random Urine tnp Final [facility]: [address] [facility] Albumin, Urine tnp Final [facility]: [address] [facility] 10/20/2020 Gamma-glutamyl Transferase (Ggt), Serum Blood venous High Ggt 60 U/L 3-55 U/L [facility]: [address] [facility] 10/20/2020 Hepatic Function Panel, Serum Blood venous Normal Protein, Total 6.5 g/dL 6.1-8.1 g/dL [facility]: [address] [facility] Blood venous Normal Albumin 4.0 g/dL 3.6-5.1 g/dL [facility]: [address] [facility] Blood venous Normal Globulin 2.5 g/dL (calc) 1.9- 3.7 g/dL (calc) [facility]: [address] [facility] Blood venous Normal Albumin/globulin Ratio 1 .6 (calc) 1.0-2.5 (calc) [facility]: [address] [facility] Blood venous Normal Bilirubin, Total 0.6 mg/dL 0. 2-1.2 mg/dL [facility]: [address] [facility] Blood venous Normal Bilirubin, Direct 0.1 mg/dL < or = 0.2 mg/dL [facility]: [address] [facility] Blood venous Normal Bilirubin, Indirect 0.5 mg/dL (calc) 0.2-1.2 mg/dL (calc) Final [facility]: [address] [facility] Blood venous Normal Alkaline Phosphatase 66 U/L 3 1-125 U/L [facility]: [address] [facility] Blood venous High Ast 34 U/L 10-30 U/L [facility]: [address] [facility] Blood venous High Alt 38 U/L 6-29 U/L Final [facility]: [address] [facility] 10/20/2020 CMP, Serum or Plasma High Glucose 390 mg/dL 65-99 mg/dL [facility]: [address] [facility] Normal Urea Nitrogen (BUN) 11 mg/dL 7-25 mg /dL [facility]: [address] [facility] Normal Creatinine 0.63 mg/dL 0.50-1.10 mg/d L [facility]: [address] [facility] Normal eGFR Non-afr. Bol[place]ian 111 mL/ min/1.73m2 > or = 60 mL/min/1.73m2 [facility] [address]: [address] [facility] Normal eGFR 128 mL/m in/1.73m2 > or = 60 mL/min/1.73m2 [facility] [address]: [address] [facility] BUN/creatinine Ratio not applicable (calc) 6-22 (calc) [facility]: [address] [facility] Normal Sodium 136 mmol/L 135-146 mmol/L [facility]: [address] [facility] Normal Potassium 4.7 mmol/L 3.5-5.3 mmol/L [facility]: [address] [facility] Normal Chloride 101 mmol/L 98-110 mmol/L Fi nal [facility]: [address] [facility] Low Carbon Dioxide 18 mmol/L 20-32 mmol/ L [facility]: [address] [facility] Normal Calcium 8.9 mg/dL 8.6-10.2 mg/dL [facility]: [address] [facility] Normal Protein, Total 6.5 g/dL 6.1-8.1 g/dL [facility]: [address] [facility] Normal Albumin 4.0 g/dL 3.6-5.1 g/dL [facility]: [address] [facility] Normal Globulin 2.5 g/dL (calc) 1.9-3.7 g/d L (calc) [facility]: [address] [facility] Normal Albumin/globulin Ratio 1.6 (calc) 1. 0-2.5 (calc) [facility]: [address] [facility] Normal Bilirubin, Total 0.6 mg/dL 0.2-1.2 m g/dL [facility]: [address] [facility] Normal Alkaline Phosphatase 66 U/L 31-125 U /L [facility]: [address] [facility] High Ast 34 U/L 10-30 U/L Final [facility]: [address] [facility] High Alt 38 U/L 6-29 U/L Final [facility] [address] [facility] Comment Final [facility]: [address] [facility] 10/20/2020 CBC W/ Auto Diff White Blood Cell Count tnp [facility]: [address] [facility] 10/20/2020 Ferritin Blood venous Normal Ferritin 17 NG/mL 16 -232 NG/mL [facility]: [address] [facility] 10/20/2020 Tsh Normal Tsh 1.11 mIU/L Final est [facility]: [address] [facility] 10/20/2020 HbA1C (Hemoglobin a1C), Blood Hemoglobin a1C tnp [facility]: [address] [facility] 09/27/2020 CMP, Serum or Plasma Blood venous High Glucose 379 mg/dL 65-99 mg/dL [facility] [address] [facility] Blood venous Normal Urea Nitrogen (BUN) 9 mg/dL 7 -25 mg/dL [facility]: [address] [facility] Blood venous Normal Creatinine 0.57 mg/dL 0.50-1. 10 mg/dL [facility]: [address] [facility] Blood venous Normal eGFR Non-afr. [place] 1 14 mL/min/1.73m2 > or = 60 mL/min/1.73m2 [facility] [address]: [address] [facility] Blood venous Normal eGFR 13 3 mL/min/1.73m2 > or = 60 mL/min/1.73m2 Final [facility]: [address] [facility] Blood venous BUN/creatinine Ratio not applicable (calc) 6-22 (calc) [facility]: [address] [facility] Blood venous Normal Sodium 135 mmol/L 135-146 mmo l/L [facility]: [address] [facility] Blood venous Normal Potassium 3.9 mmol/L 3.5-5.3 mmol/L [facility]: [address] [facility] Blood venous Normal Chloride 98 mmol/L 98-110 mmo l/L [facility]: [address] [facility] Blood venous Normal Carbon Dioxide 26 mmol/L 20-3 2 mmol/L [facility]: [address] [facility] Blood venous Normal Calcium 8.9 mg/dL 8.6-10.2 mg /dL [facility]: [address] [facility] Blood venous Normal Protein, Total 6.4 g/dL 6.1-8 .1 g/dL [facility]: [address] [facility] Blood venous Normal Albumin 3.9 g/dL 3.6-5.1 g/dL [facility]: [address] [facility] Blood venous Normal Globulin 2.5 g/dL (calc) 1.9- 3.7 g/dL (calc) [facility]: [address] [facility] Blood venous Normal Albumin/globulin Ratio 1 .6 (calc) 1.0-2.5 (calc) [facility] [address] [facility] [facility] Blood venous Normal Bilirubin, Total 0.7 mg/dL 0. 2-1.2 mg/dL [facility]: [address] [facility] Blood venous Normal Alkaline Phosphatase 115 U/L 31-125 U/L [facility]: [address] [facility] Blood venous High Ast 103 U/L 10-30 U/L Final [facility]: [address] [facility] Blood venous High Alt 116 U/L 6-29 U/L Final [facility]: [address] [facility] 09/27/2020 Lipase, Serum or Plasma Blood venous Normal Lipase 20 U/L 7-60 U/L Final [facility] [place] [facility]: [address] [place] 09/22/2020 SARS CoV 2 RdRp Gene, QL Probe, Respiratory Spec imen Nasopharyngeal Normal Sars-cov-2 negative negative Final [facility] Medical: [address] [facility] 09/20/2020 Istat B-HCG Normal Istat B-HCG < 5.0 F [facility]: [address] [facility] 09/20/2020 Istat Chem8+ Panel Normal Istat HCT 43.0 % 38. 0-51.0 % [facility]: [address] [facility] High Istat Glucose 339 mg/dL 70-105 mg/dL [facility]: [address] [facility] Normal Istat Sodium 137 mEq/L 136-145 mEq/L [facility]: [address] [facility] Normal Istat Potassium 4.2 mEq/L 3.5-5.1 mE q/L [facility]: [address] [facility] Normal Istat Ca++ 4.6 mg/dL 4.5-5.3 mg/dL F [facility]: [address] [facility] Normal Istat Chloride 99 mEq/L 98-109 mEq/L [facility]: [address] [facility] Normal Istat CO2 26.0 mm/L 23.0-27.0 mm/L F [facility]: [address] [facility] Normal Istat BUN 10 mg/dL 8-26 mg/dL [facility]: [address] [facility] Low Istat Creatinine 0.5 mg/dL 0.6-1.3 m g/dL [facility]: [address] [place] [address] 06/30/2020 CBC W/ Auto Diff Blood venous Normal White Blood C ount 4.6 10 4.0-10.0 10 [facility]: 83 0 [facility] Blood venous Normal Red Blood Count 5.09 10 4.00- 5.40 10 [facility]: [address] [facility] Blood venous Normal Hemoglobin 12.9 g/dL 12.0-15. 5 g/dL [facility]: [address] [place] [address] Blood venous Normal Hematocrit 40.4 % 36.0-47.0 % [facility]: [address] [place] [address] Blood venous Low Mean Corpuscular Volume 79.4 fL 80.0-96.0 fL [facility]: [address] [place] [address] Blood venous Low Mean Corpuscular Hemoglob in 25.3 pg 27.0-33.0 pg [facility]: [address] [place] [address] Blood venous Low Mean Corpuscular HGB Conc 31.9 g/dL 32.0-36.5 g/dL [facility]: [address] [place] [address] Blood venous Normal Red Cell Distribution Wid th 14.3 % 11.5-14.5 % [facility]: [address] [place] [address] Blood venous Low Platelet Count, Automated 146 10 150-450 10 [facility]: 0 [facility] Blood venous Normal Neutrophils % 52.6 % 36.0-66. 0 % [facility]: [address] [place] [address] Blood venous Normal Lymph % 36.0 % 24.0-44.0 % Fi [facility]: 0 [facility] Blood venous Normal Ness % 6.8 % 2.0-8.0 % [facility]: [address] [place] [address] Blood venous Normal Eos % 2.8 % 0.0-3.0 % [facility]: [address] [place] [address] Blood venous Normal Baso % 0.9 % 0.0-1.0 % [facility]: [address] [place] [address] Blood venous Normal Immature Granulocyte % 0.9 % 0-3.0 % [facility]: [address] [place] [address] Blood venous Normal Nucleated Red Blood Cell % 0. 0 % 0-0 % [facility]: [address] [place] [address] Blood venous Normal Neutrophils # 2.4 10 1.5-8.5 10 [facility]: [address] [place] [address] Blood venous Normal Lymph # 1.7 10 1.5-5.0 10 [facility]: [address] [place] [address] Blood venous Normal Ness # 0.3 10 0.0-0.[address] [facility]: [address] [place] [address] Blood venous Normal Eos # 0.1 10 0.0-0.5 10 [facility]: [address] [place] [address] Blood venous Normal Baso # 0.0 10 0.0-0.[address] [facility]: [address] [place] [address] 06/30/2020 CMP, Serum or Plasma Blood venous High Glu cose, Fasting 341 mg/dL 70-100 mg/dL [facility] nter: [address] [place] [address] Blood venous Normal Blood Urea Nitrogen 10 mg/dL 7-18 mg/dL [facility]: [address] [place] [address] Blood venous Normal Creatinine for GFR 0.58 mg/dL 0.55-1.30 mg/dL [facility]: [address] [place] [address] Blood venous Normal Glomerular Filtration Rate > 60.0 >58 [facility]: [address] [place] [address] Blood venous Low Sodium Level 133 mEq/L 136-14 5 mEq/L [facility]: [address] [place] [address] Blood venous Normal Potassium Serum 4.1 mEq/L 3.5 -5.1 mEq/L [facility]: [address] [place] [address] Blood venous Normal Chloride Level 100 mEq/L 98-1 07 mEq/L [facility]: [address] [place] [address] Blood venous Normal Carbon Dioxide Level 26 mEq/L 21-32 mEq/L [facility]: [address] [facility] Blood venous Low Anion Gap 7 mEq/L 8-16 mEq/L [facility]: [address] [facility] Blood venous Normal Calcium Level 8.7 mg/dL 8.5-1 0.1 mg/dL [facility]: [address] [facility] Blood venous Normal AST/SGOT 33 U/L 7-37 U/L [facility]: [address] [facility] [place] Blood venous Normal ALT/SGPT 52 U/L 12-78 U/L [facility]: [address] [facility] [place] Blood venous Normal Alkaline Phosphatase 89 U/L 4 5-117 U/L [facility]: [address] [place] [address] Blood venous Normal Bilirubin,total 0.4 mg/dL 0.2 -1.0 mg/dL [facility]: [address] [facility] Blood venous Normal Total Protein 6.5 gm/dL 6.4-8 .2 gm/dL [facility]: [address] [place] [address] Blood venous Normal Albumin 3.5 gm/dL 3.2-5.2 gm/ dL [facility]: [address] [place] [address] Blood venous Normal Albumin/globulin Ratio 1.2 1.2-2.2 [facility]: [address] [place] [address] 06/30/2020 Lipid Panel, Blood Blood venous High Trigl ycerides Level 563 mg/dL <150 mg/dL [facility] nter: [address] [facility] [place] Blood venous Normal Cholesterol Level 165 mg/dL < 200 mg/dL [facility]: 0 [facility] [place] Blood venous Low HDL Cholesterol 26 mg/dL >40 mg/dL [facility]: 0 [facility] [place] Blood venous Normal Non-hdl-c 139 mg/dL [facility]: 0 [facility] [place] Blood venous High Cholesterol Risk Ratio 6.346 <5 [facility]: [address] [place] [address] 06/30/2020 HbA1C (Hemoglobin a1C), Blood Blood venous Normal Hemoglobin a1C 11.2 % Final [facility]: [address] [place] [address] Blood venous High Estimated Average Glucose 275 mg/dL 60-110 mg/dL Final [facility]: 0 [facility] [place] Past Encounters 01/05/2021 Type 2 Diabetes Mellitus; Charcot's Arthropathy; Body Mass Index 40+ - Severely Obese; Screening Mammography; Carpal Tunnel Syndrome of Right Wrist; Hyperlipidemia Nichole Bradshaw MD: [address] [place] [phone], Ph. 11/26/2020 Complication of Injection Nate Freire MD: [address] [place] [phone], Ph. 11/24/2020 Charcot's Arthropathy; Type 2 Diabetes Mellitus; Immunization Advised; Infection Screening Nichole Bradshaw MD: [address] [place] [phone], Ph. 11/08/2020 Type 2 Diabetes Mellitus; Body Mass Index 40+ - Severely Obese; Charcot's Arthropathy Nichole Bradshaw MD: [address] [place] [phone], Ph. 11/03/2020 iNchole Bradshaw MD: [address] [place] [phone], Ph. 10/29/2020 Body Mass Index 40+ - Severely Obese; Type 2 Diabetes Mellitus; Elevated Liver Enzymes Level Nichole Bradshaw MD: [address] [place] [phone], Ph. 10/20/2020 Type 2 Diabetes Mellitus; Elevated Liver Enzymes Level Nichole Bradshaw MD: [address] [place] [phone], Ph. 09/28/2020 SARS-CoV-2 Vaccination Nate Freire MD: [address] [place] [phone], Ph. 09/27/2020 Body Mass Index 40+ - Severely Obese; Gastroparesis Syndrome; Gastroesophageal Reflux Disease; Type 2 Diabetes Mellitus; Nausea and Vomiting Nichole Bradshaw MD: [address] [place] [phone], Ph. 09/22/2020 Exposure to SARS-CoV-2 Nate Freire MD: [address] [place] [address], Ph. 09/22/2020 Body Mass Index 30+ - Obesity; Type II Diabetes Mellitus Uncontrolled; Nausea and Vomiting Nichole Bradshaw MD: [address] [place] [phone], Ph. 09/01/2020 SARS-CoV-2 Vaccination Nichole Bradshaw MD: [address] [place] [phone], Ph. 09/01/2020 Body Mass Index 30+ - Obesity; Sleep Apnea; Gastroesophageal Reflux Disease; Type 2 Diabetes Mellitus; Retained Foreign Body; Nummular Eczema Nichole Bradshaw MD: [address] [place] [phone], Ph. 07/28/2020 Body Mass Index 30+ - Obesity; Pain of Right Elbow Joint Nichole Bradshaw MD: [address] [place] [phone], Ph. 06/30/2020 Type II Diabetes Mellitus Uncontrolled; Cellulitis of Skin Nate Freire MD: [address] [place] [phone], Ph. 06/23/2020 Obstructive Sleep Apnea Syndrome; Type II Diabetes Mellitus Uncontrolled; Cellulitis of Skin; Charcot's Arthropathy; Gastroparesis Syndrome; Chronic Obstructive Lung Disease; Gastroesophageal Reflux Disease; Moderate Recurrent Major Depression Cher Fajardo PA-C: [address] [place] [phone], Ph. Social History Tobacco Smoking Status Former Smoker Vaccine List Vaccine Type COVID-19, mRNA, LNP-S, PF, 100 mcg/0.5 m L dose .5 mL .5 mL pneumococcal polysaccharide PPV23 .5 mL Tdap .5 mL Notes: Pt had flu vaccine at [facility] (02/26) during overnight hospital stay. Plan of Care Reminders Provider Appointments None recorded. Lab None recorded. Referral None recorded. Procedures None recorded. Surgeries None recorded. Imaging None recorded. Vitals 01/05/2021 10:20AM ESTABLISHED [id number] Height Weight BMI Blood Pressure 66 in 248 lbs 8 oz 40.1 kg/m2 123/87 mm[Hg] 11/26/2020 10:20AM ESTABLISHED [id number] Height Weight BMI Blood Pressure 66 in 125/83 mm[Hg] 11/24/2020 09:20AM ESTABLISHED [id number] Height Weight BMI Blood Pressure 66 in 247 lbs 8 oz 39.9 kg/m2 121/80 mm[Hg] 11/08/2020 08:20AM PROVIDER DIRECTED FOLLOW-UP 40 Height Weight BMI Blood Pressure 66 in 251 lbs 2 oz 40.5 kg/m2 121/84 mm[Hg] 11/03/2020 09:10AM NURSE LAB COLLECTION Height 66 in 10/29/2020 10:20AM SAME DAY 20 Height Weight BMI Blood Pressure 66 in 248 lbs 2 oz 40 kg/m2 116/83 mm[Hg] 10/20/2020 09:50AM NURSE LAB COLLECTION Height 66 in 09/27/2020 11:20AM SAME DAY 20 Height Weight BMI Blood Pressure 66 in 248 lbs 9.6 oz 40.1 kg/m2 130/89 mm[Hg ] 09/22/2020 09:40AM TELEHEALTH 20 Height Weight BMI Blood Pressure 66 in 244 lbs 16 oz 39.5 kg/m2 09/01/2020 11:20AM PROVIDER DIRECTED FOLLOW-UP 40 Height Weight BMI Blood Pressure 66 in 248 lbs 6.4 oz 40.1 kg/m2 119/84 mm[Hg ] 07/28/2020 10:20AM ESTABLISHED [id number] Height Weight BMI Blood Pressure 66 in 253 lbs 40.8 kg/m2 132/90 mm[Hg] 06/23/2020 10:00AM NEW ACUTE 20 Height Weight BMI Blood Pressure 66 in 127/87 mm[Hg]
--- OUTSIDE RECORDS SUMMARY | 2021-02-25 02:37 | CCD | Continuity of Care Document ---
Author Author Dara PEREYRA DPM Organization Unknown Address [address] [place] [address], [address] [place] [address] Phone [phone] Care Team Providers Care Backup Sawyer Name Role Phone [facility] [place] AUTM MD Ailyn Kothari AUTM [phone] Problems Active Problems Provider Date Hallux valgus (acquired), unspecified foot Chang Pereyra DPM Onset: 12/30/2015 Corns and callus Chang Pereyra DPM Onset: 12/30/2015 Bunion Chang Pereyra DPM Onset: 10/06/2019 Type 1 diabetes mellitus uncontrolled Chang Pereyra DPM O nset: 10/06/2019 Resolved Problems Hammer toe Chang Pereyra DPM Onset: 08/08/2020 Resolved: 09/28/2020 Social History Type Date Description Comments Sex [...] Information Available Procedures Date Code Description Status 11/26/2020 98132 Debridement 6-10 Nails Electric Completed 09/17/2020 56367 Office/Outpatient Established MDM 10-19 Min Completed Medical Devices Description No Information Available Encounters Type Date Location Provider Dx Diagnosis Office Visit 09/17/2020 2:30p [place] [facility] Chang Pereyra DPM B35.1 Tinea unguium E10.42 Type 1 diabetes mellitus wit h diabetic polyneuropathy Office Visit 08/13/2020 2:30p [place] [facility] Chang Pereyra DPM Z48.89 Encounter for other specified surgical aftercare Assessments Date Code Description Provider 11/26/2020 B35.1 Tinea unguium Chang Pereyra DPM 11/26/2020 L60.0 Ingrowing nail Chang Pereyra DPM [...] 3:00 pm - Chang Pereyra DPM at [facility] Functional Status Description No Information Available Mental Status Description No Information Available Referrals Description No Information Available
--- OUTSIDE RECORDS SUMMARY | 2021-02-25 02:37 | CCD ---
Author Dara So Organization Unknown Address [address] [address] Phone Care Team Providers Care Project Developer Name Role Phone Manuel Brittni PCP Allergies, Adverse Reactions, Alerts No Data in Section Problem List Concept Problem Description Status Start Date Created Date Resolv ed Date Snomed Code F41.9 Unspecified Anxiety Disorder Active 07/11/2019 07/11/2019 F33.1 Major Depressive Disorder, Recurrent episode, Moderate Active 01/26/2021 F43.10 Posttraumatic Stress Disorde r (includes Posttraumatic Stress Disorder for Children 6 Years and Younger) Active 01/26/2021 Medications Rx Norm Medication Route Route Concept Start Date Stop Date Dosage Dominick quency Duration Formula Strength Dosage Form Dosage Form Code Dosage Description Medication Id Account Npid Author First Name Author Last Name Taxonomy Code Taxonomy Desc Phone Number [id number] bupropion HCl by mouth [id number] 05/25/2020 03/14/2021 once a day 90 300 mg tablet extended release 24 hr 00166 [id number] Marc Ambrocio [id number] Psychiatry [id number] Social History Social History Element Description Concept Effective Date Smoking Status Unknown if ever smoked [id number] Immunizations No Data in Section Vital Signs No Data in Section Procedures Date Concept Id Description Targeted Site Concept Targeted Site Concept Type 01/26/2021 85962 Extended Individual Psychotherapy - 45 min CPT Patient has no history of implantable de vices Encounters Encounter Start Date End Date Encounter Type Description Diagnosis Di agnosis Desc Location Author First Name Author Last Name Npid Taxonomy Cod e Taxonomy Desc Phone Number Location Addr1 Location Addr2 Location [facility] Location Sta Location [facility] [id number] 01/26/2021 01/26/2021 02380 Extended Individual Psych otherapy - 45 min F41.[address], [address] [facility] Manuel Elkins [phone] [id number] Packager [phone] [address] [address] Plan of Treatment No Data in Section Lab Results No Data in Section Instructions No Data in Section Insurance Providers Insurance Id Policy Effective Date Policy Thru Date Company Yesenia rodriguez [id number] 2004 MEDICARE [id number] MEDICAID
--- OUTSIDE RECORDS SUMMARY | 2021-02-25 02:37 | CCD | Continuity of Care Document ---
Author Author Dara BARRIOS P.A. Organization Unknown Address [address] [place] [address] Phone [phone] Care Team Providers Care Hatch Tender Name Role Phone Ailyn Kothari MD AUT [phone] Problems Description No Active Problems Social History Type Date Description Comments Sex Unknown ETOH Use Rarely consumes alcohol Tobacco Use Start: Unknown End: Unknown Patient is a former smoker would smoke 2 to 4 cigarettes a day. Allergies and adverse reactions Active Allergies Criticality Reaction | Severity Comments Date Latex Unable to assess criticality 01/14/2015 Invokana Unable to assess criticality 01/14/2015 Gabapentin Unable to assess criticality 01/14/2015 Medications Active Medications SIG Qnty Indications Ordering Provide r Date Trulicity 0.75mg/0.5 ML Solution Pen-Inject use once weekly Unknown Basaglar Kwikpen 100 Unit/ML Solution Pen-Inject inject 28 units every night at bedtime maximum daily dose = 28 u nits Unknown Metformin HCL 1000mg Tablets take one tablet by mouth twice a day Unknown Wellbutrin XL 300mg Tablets ER 24HR Unknown Novolog 100Unit/ML Solution Unknown Reglan 5mg Tablets Unknown Immunizations Description No Information Available Vital Signs Date Vital Result Comment 01/27/2021 1:35pm Body Temperature 97.1 F Height 67 inches 5'7" Weight 245.25 lb BMI (Body Mass Index) 38.4 kg/m2 08/11/2020 9:42am Body Temperature 97.3 F Height 67 inches 5'7" Weight 252.12 lb BMI (Body Mass Index) 39.5 kg/m2 Results Test Acquired Date Facility Test Result H/L Range Note Laboratory test finding [facility] [address] [place] [address] (315)- - Blood Urea Nitrogen 14 mg/dL Normal 7-18 Creatinine With GFR 09/07/2020 [facility] [address] [place] [address] [phone] - Creatinine For GFR 0.54 mg/dL Low 0.55-1.30 Glomerular Filtration Rate > 60.0 Normal >58 1 1 Units are mL/min/1.73 m2 Chronic Kidney Disease Staging per NKF: Stage I & II GFR >=60 Normal to Mildly Decreased Stage III GFR 30-59 Moderately Decreased Stage IV GFR 15-29 Severely Decreased Stage V GFR <15 Very Little GFR Left ESRD GFR <15 on FIBROUS WALLBOARD INSPECTOR Procedures Date Code Description Status 01/27/2021 68978 Office/Outpatient Established Lo w MDM 20-29 Min Completed 01/27/2021 20979 Apply Cast Short Arm Completed 10/07/2020 75732 Office/Outpatient Established Lo w MDM 20-29 Min Completed 09/16/2020 90386 Manual Therapy Each 15 Minutes C ompleted 09/16/2020 36850 Therapeutic Procedure, Each 15 M inutes Completed 09/09/2020 82329 Manual Therapy Each 15 Minutes C ompleted 09/09/2020 89789 Therapeutic Procedure, Each 15 M inutes Completed 09/02/2020 42359 Manual Therapy Each 15 Minutes C ompleted 09/02/2020 44796 Therapeutic Procedure, Each 15 M inutes Completed 08/26/2020 54270 Manual Therapy Each 15 Minutes C ompleted 08/26/2020 73839 Therapeutic Procedure, Each 15 M inutes Completed 2020 02301 Therapeutic Procedure, Each 15 M inutes Completed 08/17/2020 07401 Physical Therapy Eval - Low Comp lexity Completed 08/11/2020 97675 Office/Outpatient Established Mo d MDM 30-39 Min Completed 08/11/2020 42263 X-Ray Spine Lumbosacral Complete Inc Bending Views Min Of 6 Completed Medical Devices Description No Information Available Encounters Type Date Location Provider Dx Diagnosis Office Visit 01/27/2021 2:[place]p [place] Bar[place] P.A. M25.531 Pain in right wrist R20.0 Anesthesia of skin Office Visit 10/07/2020 1:45p [place] Gut[place].AAnthony M51.36 Other intervertebral disc degeneration, lumbar region M43.16 Spondylolisthesis, lumbar re gion Office Visit 08/11/2020 10:00a [place].AAnthony M51.36 Other intervertebral disc degeneration, lumbar region M43.16 Spondylolisthesis, lumbar re gion Assessments Date Code Description Provider 01/27/2021 M25.531 Pain in right wrist Ashlee Ramirez 01/27/2021 R20.0 Anesthesia of skin Chalo Gastelum P.AAnthony 10/07/2020 M51.36 Other intervertebral disc degene ration, lumbar region Chalo Barrios, P.A. 10/07/2020 M43.16 Spondylolisthesis, lumbar region Chalo Barrios, P.A. 09/16/2020 M77.01 Medial epicondylitis, right elbo w Ayana Misty Herndon, TRANSMISSION LINE ENGINEER 09/16/2020 M75.51 Bursitis of right shoulder Teres a Misty Herndon, TRANSMISSION LINE ENGINEER 09/09/2020 M77.01 Medial epicondylitis, right elbo w Ayana Misty Herndon, TRANSMISSION LINE ENGINEER 09/09/2020 M75.51 Bursitis of right shoulder Teres a Misty Herndon, TRANSMISSION LINE ENGINEER 09/02/2020 M77.01 Medial epicondylitis, right elbo w Ayana Misty Herndon, TRANSMISSION LINE ENGINEER 09/02/2020 M75.51 Bursitis of right shoulder Teres a Misty Herndon, TRANSMISSION LINE ENGINEER 08/26/2020 M77.01 Medial epicondylitis, right elbo w Danamarie Ortolano, TRANSMISSION LINE ENGINEER 08/26/2020 M75.51 Bursitis of right shoulder Danam vivian Ortolano, TRANSMISSION LINE ENGINEER 2020 M77.01 Medial epicondylitis, right elbo w Danamarie Ortolano, TRANSMISSION LINE ENGINEER 2020 M75.51 Bursitis of right shoulder Danam vivian Ortolano, TRANSMISSION LINE ENGINEER 08/17/2020 M77.01 Medial epicondylitis, right elbo w Estuardo De La Fuente, PT, DPT 08/17/2020 M75.51 Bursitis of right shoulder Estuardo De La Fuente, PT, DPT 08/11/2020 M51.36 Other intervertebral disc degene ration, lumbar region Ashlee Sullivan 08/11/2020 M43.16 Spondylolisthesis, lumbar region Ashlee Sullivan Plan of Treatment Future Appointment(s):* 02/15/2021 2:30 pm - Ashlee Sullivan at [place] 01/27/2021 - Ashlee Sullivan* M25.531 Pain in right wrist* Follow up: * with [facility] for rt wrist mri results [facility]OOK [facility] * R20.0 Anesthesia of skin Functional Status Description No Information Available Mental Status Description No Information Available Referrals Refer to Dr Reason for Referral Status Appt Date Chalo Barrios PA MRI NO AUTH REQUIRED FOR MRI OF RIGHT WRIST (14695) TO MRI. THANH Created [address] [place] [address] [phone] Chalo Barrios PA MRI NO AUTH REQUIRED FOR MRI OF RIGHT WRIST ([id number]) TO MRI. DG Created [facility] [place] [address] [phone] Chalo Barrios PA REFERRAL NO AUTH REQUIRED FO R REFERRAL TO DR. BYNUM AT [facility] TO CO SUPERVISOR GROUNDS AND LANDSCAPE. DG Created [address] [place] [address] [phone] Chalo Barrios PA REFERRAL NO AUTH REQUIRED FO R REFERRAL TO DR. BYNUM AT [facility] TO CO SUPERVISOR GROUNDS AND LANDSCAPE. DG Created [address] [place] [address] [phone] Chalo Barrios PA MRI NO AUTH REQUIRED FOR MRI OF LUMBAR SPINE W/ & W/O (34953) TO ALBINA Shoemaker DG Created [address] [address] [place], [place] [id number] [phone] Chalo Barrios, DUANE MRI NO AUTH REQUIRED FOR MRI OF LUMBAR SPINE W/ & W/O (58138) TO ALBINA LAW Created [address] [place] [address] [phone] Henok Burrell MD PT BASED ON MED. [facility] TO PT DEPT. NT Iban rosa [address] [place] [phone]
--- OUTSIDE RECORDS SUMMARY | 2021-02-25 02:37 | CCD | Continuity of Care Document ---
Author Author Dara FERNANDEZ Organization Unknown Address [address] [place] [address], [facility] [address] [place] [address] Phone [phone] Care Team Providers Care Housing Development Specialist Name Role Phone Ailyn Kothari MD [facility] [phone] Problems Description No Active Problems Social History [...] H/L Range Note Laboratory test finding 09/07/2020 [facility] [address] [place] [address] (315)- - Blood Urea Nitrogen 14 mg/dL Normal 7-18 Creatinine With GFR 09/07/2020 [facility] [address] [place] [address] [phone] - Creatinine For GFR 0.54 mg/dL Low 0.55-1.30 Glomerular Filtration Rate > 60.0 Normal >58 1 1 Units are mL/min/1.73 m2 Chronic Kidney Disease Staging per NKF: Stage I & II GFR >=60 Normal to Mildly Decreased Stage III GFR 30-59 Moderately Decreased Stage IV GFR 15-29 Severely Decreased Stage V GFR <15 Very Little GFR Left ESRD GFR <15 on LAMINA SEARCHER Procedures Date Code Description Status 02/04/2021 70389 MRI Upper Extremity Any Joint Co mpleted 02/04/2021 46569 MRI Upper Extremity Any Joint Co mpleted 01/27/2021 54906 Office/Outpatient Established Lo w MDM 20-29 Min Completed 01/27/2021 73863 Apply Cast Short Arm Completed 10/07/2020 28571 Office/Outpatient Established Lo w MDM 20-29 Min Completed 09/16/2020 61535 Manual Therapy Each 15 Minutes C ompleted 09/16/2020 93490 Therapeutic Procedure, Each 15 M inutes Completed 09/09/2020 98570 Manual Therapy Each 15 Minutes C ompleted 09/09/2020 71642 Therapeutic Procedure, Each 15 M inutes Completed 09/02/2020 35073 Manual Therapy Each 15 Minutes C ompleted 09/02/2020 08033 Therapeutic Procedure, Each 15 M inutes Completed 08/26/2020 81385 Manual Therapy Each 15 Minutes C ompleted 08/26/2020 71281 Therapeutic Procedure, Each 15 M inutes Completed 2020 58799 Therapeutic Procedure, Each 15 M inutes Completed 08/17/2020 20583 Physical Therapy Eval - Low Comp lexity Completed Medical Devices Description No Information Available Encounters Type Date Location Provider Dx Diagnosis Office Visit 01/27/2021 2:00p [place] Chalo Barrios, P.A. M25.531 Pain in right wrist R20.0 Anesthesia of skin Office Visit 10/07/2020 1:45p [place] Chalo Barrios, P.A. M51.36 Other intervertebral disc degeneration, lumbar region M43.16 Spondylolisthesis, lumbar re gion Assessments Date Code Description Provider 02/04/2021 M25.531 Pain in right wrist Miguel Xavier rd, MD 02/04/2021 M25.531 Pain in right wrist MRI 01/27/2021 M25.531 Pain in right wrist Chalo dubon, P.A. 01/27/2021 R20.0 Anesthesia of skin Chalo Gastelum, P.A. 10/07/2020 M51.36 Other intervertebral disc degene ration, lumbar region Chalo Barrios, P.A. 10/07/2020 M43.16 Spondylolisthesis, lumbar region Chalo Barrios, P.A. 09/16/2020 M77.01 Medial epicondylitis, right elbo w Ayana Misty Herndon, RECEIVING ASSOCIATE 09/16/2020 M75.51 Bursitis of right shoulder Teres a Misty Herndon, RECEIVING ASSOCIATE 09/09/2020 M77.01 Medial epicondylitis, right elbo w Ayana Misty Herndon, RECEIVING ASSOCIATE 09/09/2020 M75.51 Bursitis of right shoulder Teres a Misty Herndon, RECEIVING ASSOCIATE 09/02/2020 M77.01 Medial epicondylitis, right elbo w Ayana Misty Herndon, RECEIVING ASSOCIATE 09/02/2020 M75.51 Bursitis of right shoulder Teres a Misty Herndon, RECEIVING ASSOCIATE 08/26/2020 M77.01 Medial epicondylitis, right elbo w Danamarie Ortolano, RECEIVING ASSOCIATE 08/26/2020 M75.51 Bursitis of right shoulder Danam vivian Ortolano, RECEIVING ASSOCIATE 2020 M77.01 Medial epicondylitis, right elbo w Danamarie Ortolano, RECEIVING ASSOCIATE 2020 M75.51 Bursitis of right shoulder Danam vivian Ortolano, RECEIVING ASSOCIATE 08/17/2020 M77.01 Medial epicondylitis, right elbo w Estuardo De La Fuente, PT, DPT 08/17/2020 M75.51 Bursitis of right shoulder Estuardo De La Fuente, PT, DPT Plan of Treatment Future Appointment(s):* 02/15/2021 2:30 pm - Ashlee Sullivan at [place] 01/27/2021 - Ashlee Sullivan* M25.531 Pain in right wrist* Follow up: * with [facility] for rt wrist mri results [facility] BOOK [facility] * R20.0 Anesthesia of skin Functional Status Description No Information Available Mental Status Description No Information Available Referrals Refer to Dr Reason for Referral Status Appt Date Chalo Barrios PA MRI NO AUTH REQUIRED FOR MRI OF RIGHT WRIST (74664) TO MRI. THANH Created [facility] [place] [address] [phone] Chalo Barrios PA MRI NO AUTH REQUIRED FOR MRI OF RIGHT WRIST ([id number]) TO MRI. THANH Created [facility] [place] [address] [phone] Chalo Barrios PA REFERRAL NO AUTH REQUIRED FO R REFERRAL TO DR. BYNUM AT [facility] ORTHO TO SPORTS INSTRUCTOR. THANH Created [facility] [place] [address] [phone] Chalo Barrios PA REFERRAL NO AUTH REQUIRED FO R REFERRAL TO DR. BYNUM AT [facility] ORTHO TO SPORTS INSTRUCTOR. THANH Created [address] [place] [address] [phone]
--- OUTSIDE RECORDS SUMMARY | 2021-02-25 02:37 | CCD | Continuity of Care Document ---
Author Author Dara BARRIOS P.A. Organization Unknown Address [address] [place] [address] Phone [phone] Care Team Providers Care Dsp Engineer Name Role Phone Ailyn Kothari MD AUT [phone] Problems Description No Active Problems Social History [...] H/L Range Note Laboratory test finding 09/07/2020 [facility] [address] [place] [address] (315)- - Blood Urea Nitrogen 14 mg/dL Normal 7-18 Creatinine With GFR 09/07/2020 [facility] [address] [place] [address] (315)- - Creatinine For GFR 0.54 mg/dL Low 0.55-1.30 Glomerular Filtration Rate > 60.0 Normal >58 1 1 Units are mL/min/1.73 m2 Chronic Kidney Disease Staging per NKF: Stage I & II GFR >=60 Normal to Mildly Decreased Stage III GFR 30-59 Moderately Decreased Stage IV GFR 15-29 Severely Decreased Stage V GFR <15 Very Little GFR Left ESRD GFR <15 on THERMODYNAMICS PROFESSOR Procedures Date Code Description Status 01/27/2021 16839 Office/Outpatient Established Lo w MDM 20-29 Min Completed 10/07/2020 87919 Office/Outpatient Established Lo w MDM 20-29 Min Completed 09/16/2020 96081 Manual Therapy Each 15 Minutes C ompleted 09/16/2020 69098 Therapeutic Procedure, Each 15 M inutes Completed 09/09/2020 91788 Manual Therapy Each 15 Minutes C ompleted 09/09/2020 12975 Therapeutic Procedure, Each 15 M inutes Completed 09/02/2020 89475 Manual Therapy Each 15 Minutes C ompleted 09/02/2020 49642 Therapeutic Procedure, Each 15 M inutes Completed 08/26/2020 44929 Manual Therapy Each 15 Minutes C ompleted 08/26/2020 71208 Therapeutic Procedure, Each 15 M inutes Completed 2020 31071 Therapeutic Procedure, Each 15 M inutes Completed 08/17/2020 81428 Physical Therapy Eval - Low Comp lexity Completed 08/11/2020 14119 Office/Outpatient Established Mo d MDM 30-39 Min Completed 08/11/2020 21828 X-Ray Spine Lumbosacral Complete Inc Bending Views Min Of 6 Completed 08/06/2020 85369 Office/Outpatient Established Mo d MDM 30-39 Min Completed Medical Devices Description No Information Available Encounters Type Date Location Provider Dx Diagnosis Office Visit 01/27/2021 2:00p [place] Chalo K. Mcelheran, P.A. M25.531 Pain in right wrist S63.91xA Sprain of unsp part of right wrist and hand, init encntr Office Visit 10/07/2020 1:45p Ara Barrios P.A. M51.36 Other intervertebral disc degeneration, lumbar region M43.16 Spondylolisthesis, lumbar re gion Office Visit 08/11/2020 10:00a Ara Barrios P.A. M51.36 Other intervertebral disc degeneration, lumbar region M43.16 Spondylolisthesis, lumbar re gion Office Visit 08/06/2020 10:30a Ara Burrell MD M77.01 Medial epicondylitis, right elbow M75.51 Bursitis of right shoulder Assessments Date Code Description Provider 01/27/2021 M25.531 Pain in right wrist Chalo dubon P.A. 01/27/2021 S63.91xA Sprain of unspecifie d part of right wrist and hand, initial encounter Chalo Barrios, P.A. 10/07/2020 M51.36 Other intervertebral disc degene ration, lumbar region Chalo Barrios, P.A. 10/07/2020 M43.16 Spondylolisthesis, lumbar region Chalo Barrios, P.A. 09/16/2020 M77.01 Medial epicondylitis, right elbo w Ayana Herndon, PROTECTIVE SERVICES CASE WORKER 09/16/2020 M75.51 Bursitis of right shoulder Teres a Misty Herndon, PROTECTIVE SERVICES CASE WORKER 09/09/2020 M77.01 Medial epicondylitis, right elbo w Ayana Herndon, PROTECTIVE SERVICES CASE WORKER 09/09/2020 M75.51 Bursitis of right shoulder Teres a Misty Herndon, PROTECTIVE SERVICES CASE WORKER 09/02/2020 M77.01 Medial epicondylitis, right elbo w Ayana Misty Herndon, PROTECTIVE SERVICES CASE WORKER 09/02/2020 M75.51 Bursitis of right shoulder Teres a Misty Herndon, PROTECTIVE SERVICES CASE WORKER 08/26/2020 M77.01 Medial epicondylitis, right elbo w Amilcar Kiran, PROTECTIVE SERVICES CASE WORKER 08/26/2020 M75.51 Bursitis of right shoulder Danam vivian Ortolano, PROTECTIVE SERVICES CASE WORKER 2020 M77.01 Medial epicondylitis, right elbo w Irmaribradford Ortolano, PROTECTIVE SERVICES CASE WORKER 2020 M75.51 Bursitis of right shoulder Danam vivian Ortolano, PROTECTIVE SERVICES CASE WORKER 08/17/2020 M77.01 Medial epicondylitis, right elbo w Estuardo McintoshAnthony De La Fuente, PT, DPT 08/17/2020 M75.51 Bursitis of right shoulder Estuardo Glenys De La Fuente, PT, DPT 08/11/2020 M51.36 Other intervertebral disc degene ration, lumbar region Chalo Barrios, P.A. 08/11/2020 M43.16 Spondylolisthesis, lumbar region Chalo Barrios, P.A. 08/06/2020 M77.01 Medial epicondylitis, right elbo w Henok Burrell MD 08/06/2020 M77.01 Medial epicondylitis, right elbo w Henok Burrell MD 08/06/2020 M75.51 Bursitis of right shoulder Janneth miriam Burrell MD Plan of Treatment Future Appointment(s):* 02/04/2021 11:00 am - MRI at MRI 01/27/2021 - Chalo Barrios, P.A.* M25.531 Pain in right wrist * S63.91xA Sprain of unspecified part of right wrist and hand, initial encounter * New Xrays:* MRI Right Wrist, Scheduled: 02/04/21 * New Orders:* rt wrist shortarm cast fiberglass thumbspica, Ordered: 01/27/21 * Follow up:* with [facility] for rt wrist mri results [facility] BOOK IT Functional Status Description No Information Available Mental Status Description No Information Available Referrals Refer to Dr Reason for Referral Status Appt Date Chalo Barrios PA REFERRAL NO AUTH REQUIRED FO R REFERRAL TO DR. BYNUM AT [facility]TH[facility] TO BRISTLE MACHINE OPERATOR. DG Created [address] [place] [address] [address] [place] [address] [phone] Chalo Barrios PA REFERRAL NO AUTH REQUIRED FO R REFERRAL TO DR. BYNUM AT [facility]TH[facility] TO BRISTLE MACHINE OPERATOR. DG Created [facility] [address] [place] [address] [phone] Chalo Barrios PA MRI NO AUTH REQUIRED FOR MRI OF LUMBAR SPINE W/ & W/O (22087) TO ALBINA Shoemaker DG Created [address] [place] [address] [phone] Chalo Barrios PA MRI NO AUTH REQUIRED FOR MRI OF LUMBAR SPINE W/ & W/O ([id number]) TO ALBINA LAW Created [address] [place] [address] [phone] Henok Burrell MD PT BASED ON MED. [facility] TO PT DEPT. NT Iban rosa [address] [address] [phone]
--- OUTSIDE RECORDS SUMMARY | 2021-02-25 02:37 | CCD | Continuity of Care Document ---
Author Author Dara FERNANDEZ Organization Unknown Address [address] [place] [address], [facility] [address] [place] [address] Phone [phone] Care Team Providers Care Co Teacher Name Role Phone Ailyn Kothari MD [facility] [phone] Problems Description No Active Problems Social History [...] H/L Range Note Laboratory test finding 09/07/2020 [facility] [address] [place] [address] (315)- - Blood Urea Nitrogen 14 mg/dL Normal 7-18 Creatinine With GFR 09/07/2020 [facility] [address] [place] [address] (315)- - Creatinine For GFR 0.54 mg/dL Low 0.55-1.30 Glomerular Filtration Rate > 60.0 Normal >58 1 1 Units are mL/min/1.73 m2 Chronic Kidney Disease Staging per NKF: Stage I & II GFR >=60 Normal to Mildly Decreased Stage III GFR 30-59 Moderately Decreased Stage IV GFR 15-29 Severely Decreased Stage V GFR <15 Very Little GFR Left ESRD GFR <15 on RN CHARGE Procedures Date Code Description Status 01/27/2021 26218 Office/Outpatient Established Lo w MDM 20-29 Min Completed 01/27/2021 58979 Apply Cast Short Arm Completed 10/07/2020 24370 Office/Outpatient Established Lo w MDM 20-29 Min Completed 09/16/2020 78039 Manual Therapy Each 15 Minutes C ompleted 09/16/2020 99319 Therapeutic Procedure, Each 15 M inutes Completed 09/09/2020 53419 Manual Therapy Each 15 Minutes C ompleted 09/09/2020 46809 Therapeutic Procedure, Each 15 M inutes Completed 09/02/2020 29792 Manual Therapy Each 15 Minutes C ompleted 09/02/2020 79077 Therapeutic Procedure, Each 15 M inutes Completed 08/26/2020 43622 Manual Therapy Each 15 Minutes C ompleted 08/26/2020 13767 Therapeutic Procedure, Each 15 M inutes Completed 2020 26805 Therapeutic Procedure, Each 15 M inutes Completed 08/17/2020 69365 Physical Therapy Eval - Low Comp lexity Completed 08/11/2020 37773 Office/Outpatient Established Mo d MDM 30-39 Min Completed 08/11/2020 74925 X-Ray Spine Lumbosacral Complete Inc Bending Views Min Of 6 Completed 08/06/2020 15265 Office/Outpatient Established Mo d MDM 30-39 Min Completed Medical Devices Description No Information Available Encounters Type Date Location Provider Dx Diagnosis Office Visit 01/27/2021 2:00p Ara Barrios, P.A. M25.531 Pain in right wrist S63.91xA [...] in right wrist Chalo dubon, P.A. 01/27/2021 S63.91xA Sprain of unspecifie d part of right wrist and hand, initial encounter Chalo Barrios, P.A. 10/07/2020 M51.36 Other intervertebral disc degene ration, lumbar region Chalo Barrios, P.A. 10/07/2020 M43.16 Spondylolisthesis, lumbar region Chalo Barrios, P.A. 09/16/2020 M77.01 Medial epicondylitis, right elbo w Ayana Herndon, SPACE CONTROL AGENT 09/16/2020 M75.51 Bursitis of right shoulder Teres a Misty Herndon, SPACE CONTROL AGENT 09/09/2020 M77.01 Medial epicondylitis, right elbo w Ayana Herndon, SPACE CONTROL AGENT 09/09/2020 M75.51 Bursitis of right shoulder Teres a Misty Herndon, SPACE CONTROL AGENT 09/02/2020 M77.01 Medial epicondylitis, right elbo w Ayana Misty Herndon, SPACE CONTROL AGENT 09/02/2020 M75.51 Bursitis of right shoulder Teres a Misty Herndon, SPACE CONTROL AGENT 08/26/2020 M77.01 Medial epicondylitis, right elbo w Amilcar Kiran, SPACE CONTROL AGENT 08/26/2020 M75.51 Bursitis of right shoulder Danam vivian Ortolano, SPACE CONTROL AGENT 2020 M77.01 Medial epicondylitis, right elbo w Amilcar Ortolano, SPACE CONTROL AGENT 2020 M75.51 Bursitis of right shoulder Danam vivian Ortolano, SPACE CONTROL AGENT 08/17/2020 M77.01 Medial epicondylitis, right elbo w [...] Burrell MD Plan of Treatment Future Appointment(s):* 02/15/2021 2:30 pm - Chalo Barrios, PAnthonyA. at [place] 01/27/2021 - Chalo Barrios, PAnthonyA.* M25.531 Pain in right wrist * S63.91xA Sprain of unspecified part of right wrist and hand, initial encounter * Follow up:* with M for rt wrist mri results [facility] BOOK IT Functional Status Description No Information Available Mental Status Description No Information Available Referrals Refer to Dr Reason for Referral Status Appt Date Chalo Barrios PA MRI NO AUTH REQUIRED FOR MRI OF RIGHT WRIST ([id number]) TO MRI. DG Created [address] [place] [address] [phone] Chalo Barrios PA MRI NO AUTH REQUIRED FOR MRI OF RIGHT WRIST ([id number]) TO MRI. DG Created [address] [place], [place] [address] [phone] Chalo Barrios PA REFERRAL NO AUTH REQUIRED FO R REFERRAL TO DR. BYNUM AT [facility]THO TO CIVIL ENGINEERING DESIGNER. DG Created [address] [place] [address] [phone] Chalo Barrios PA REFERRAL NO AUTH REQUIRED FO R REFERRAL TO DR. BYNUM AT [facility]TH[facility] TO CIVIL ENGINEERING DESIGNER. DG Created [address] [place] [address] [phone] Chalo Barrios PA MRI NO AUTH REQUIRED FOR MRI OF LUMBAR SPINE W/ & W/O (58806) TO ALBINA LAW Created [address] [place] [address] [phone] Chalo Barrios, DUANE MRI NO AUTH REQUIRED FOR MRI OF LUMBAR SPINE W/ & W/O ([id number]) TO ALBINA LAW Created [address] [place] [address] [phone] Henok Burrell MD PT BASED ON MED. [facility] TO PT DEPT. NT Iban rosa [address] [place], [place] [address] [phone]
--- OUTSIDE RECORDS SUMMARY | 2021-02-25 02:37 | CCD ---
Author Dara So Organization Unknown Address [address] [address] Phone Care Team Providers Care Ornament Setter Name Role Phone Manuel Brittni PCP Allergies, Adverse Reactions, Alerts No Data in Section Problem List Concept Problem Description Status Start Date Created Date Resolv ed Date Snomed Code F41.9 Unspecified Anxiety Disorder Active 07/11/2019 07/11/2019 F33.1 Major Depressive Disorder, Recurrent episode, Moderate Active 02/03/2021 F43.10 Posttraumatic Stress Disorde r (includes Posttraumatic Stress Disorder for Children 6 Years and Younger) Active 02/03/2021 Medications Rx Norm Medication Route Route Concept Start Date Stop Date Dosage Dominick quency Duration Formula Strength Dosage Form Dosage Form Code Dosage Description Medication Id Account Npid Author First Name Author Last Name Taxonomy Code Taxonomy Desc Phone Number [id number] bupropion HCl by mouth [id number] 05/25/2020 03/14/2021 once a day 90 300 mg tablet extended release 24 hr 11560 [id number] Marc Ambrocio [id number] Psychiatry [id number] Social History Social History Element Description Concept Effective Date Smoking Status Unknown if ever smoked [id number] Immunizations No Data in Section Vital Signs No Data in Section Procedures Date Concept Id Description Targeted Site Concept Targeted Site Concept Type 02/03/2021 31393 Extended Individual Psychotherapy - 45 min CPT Patient has no history of implantable de vices Encounters Encounter Start Date End Date Encounter Type Description Diagnosis Di agnosis Desc Location Author First Name Author Last Name Npid Taxonomy Cod e Taxonomy Desc Phone Number Location Addr1 Location Addr2 Location [facility] Location Sta Location [facility] [id number] 02/03/2021 02/03/2021 87042 Extended Individual Psych otherapy - 45 min F41.9 Anxiety Disorder, Unspecified [facility] Manuel Elkins [id number] [id number] Iridologist [phone] [address] [address] Plan of Treatment No Data in Section Lab Results No Data in Section Instructions No Data in Section Insurance Providers Insurance Id Policy Effective Date Policy Thru Date Company Yesenia rodriguez [id number] 2004 MEDICARE [id number] 2015 MEDICAID
--- OUTSIDE RECORDS SUMMARY | 2021-02-25 02:37 | CCD | Continuity of Care Document ---
Author Author Dara PEREYRA DPM Organization Unknown Address [address] [place] [address], [address] [place] [address] Phone [phone] Care Team Providers Care Coating Mixer Name Role Phone [facility] AUTM MD Ailyn Kothari AUTM [phone] Problems Active Problems Provider Date Hallux valgus [...] Available Procedures Date Code Description Status 02/23/2021 24612 Office/Outpatient Established Lo w MDM 20-29 Min Completed 02/23/2021 40730 Debridement Tissue/Muscle/Bone C ompleted 02/04/2021 14946 Office/Outpatient Established SF MDM 10-19 Min Completed 11/26/2020 00051 Debridement 6-10 Nails Electric Completed 09/17/2020 04234 Office/Outpatient Established SF MDM 10-19 Min Completed Medical Devices Description No Information Available Encounters Type Date Location Provider Dx Diagnosis Office Visit 02/23/2021 1:15p [facility] Chang Pereyra DPM L03.032 Cellulitis of left toe E10.65 Type 1 diabetes mellitus wit h hyperglycemia E10.621 Type 1 diabetes mellitus wit h foot ulcer M86.172 Other acute osteomyelitis, l eft ankle and foot L89.894 Pressure ulcer of other site , stage 4 Office Visit 02/04/2021 3:00p [facility] Chang Pereyra DPM 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
--- OUTSIDE RECORDS SUMMARY | 2021-02-25 02:37 | CCD | Continuity of Care Document ---
Author Author Dara FERNANDEZ Organization Unknown Address [address] [place] [address], [facility] [address] [place] [address] Phone [phone] Care Team Providers Care Gamb Cutter Name Role Phone Ailyn Kothari MD [facility] [phone] Problems Description No Active Problems Social History [...] H/L Range Note Laboratory test finding 09/07/2020 [facility] [address] [place] [address] ([phone] - Blood Urea Nitrogen 14 mg/dL Normal 7-18 Creatinine With GFR 09/07/2020 [facility] [address] [place] [address] ([phone] - Creatinine For GFR 0.54 mg/dL Low 0.55-1.30 Glomerular Filtration Rate > 60.0 Normal >58 1 1 Units are mL/min/1.73 m2 Chronic Kidney Disease Staging per NKF: Stage I & II GFR >=60 Normal to Mildly Decreased Stage III GFR 30-59 Moderately Decreased Stage IV GFR 15-29 Severely Decreased Stage V GFR <15 Very Little GFR Left ESRD GFR <15 on TRACK MECHANIC Procedures Date Code Description Status 01/27/2021 56655 Office/Outpatient Established Lo w MDM 20-29 Min Completed 01/27/2021 89712 Apply Cast Short Arm Completed 10/07/2020 09361 Office/Outpatient Established Lo w MDM 20-29 Min Completed 09/16/2020 27899 Manual Therapy Each 15 Minutes C ompleted 09/16/2020 42658 Therapeutic Procedure, Each 15 M inutes Completed 09/09/2020 93420 Manual Therapy Each 15 Minutes C ompleted 09/09/2020 30747 Therapeutic Procedure, Each 15 M inutes Completed 09/02/2020 35052 Manual Therapy Each 15 Minutes C ompleted 09/02/2020 13549 Therapeutic Procedure, Each 15 M inutes Completed 08/26/2020 93277 Manual Therapy Each 15 Minutes C ompleted 08/26/2020 24114 Therapeutic Procedure, Each 15 M inutes Completed 2020 94320 Therapeutic Procedure, Each 15 M inutes Completed 08/17/2020 75093 Physical Therapy Eval - Low Comp lexity Completed 08/11/2020 87121 Office/Outpatient Established Mo d MDM 30-39 Min Completed 08/11/2020 78560 X-Ray Spine Lumbosacral Complete Inc Bending Views Min Of 6 Completed 08/06/2020 34983 Office/Outpatient Established Mo d MDM 30-39 Min [...] of right wrist and hand, initial encounter hCalo Barrios, P.A. 10/07/2020 M51.36 Other intervertebral disc degene ration, lumbar region Chalo Barrios, P.A. 10/07/2020 M43.16 Spondylolisthesis, lumbar region Chalo Barrios, P.A. 09/16/2020 M77.01 Medial epicondylitis, right elbo w Ayana Herndon, SCIENCE LIAISON 09/16/2020 M75.51 Bursitis of right shoulder Teres a Misty Herndon, SCIENCE LIAISON 09/09/2020 M77.01 Medial epicondylitis, right elbo w Ayana Herndon, SCIENCE LIAISON 09/09/2020 M75.51 Bursitis of right shoulder Teres a Misty Herndon, SCIENCE LIAISON 09/02/2020 M77.01 Medial epicondylitis, right elbo w Ayana Misty Herndon, SCIENCE LIAISON 09/02/2020 M75.51 Bursitis of right shoulder Teres a Misty Herndon, SCIENCE LIAISON 08/26/2020 M77.01 Medial epicondylitis, right elbo w Amilcar Kiran, SCIENCE LIAISON 08/26/2020 M75.51 Bursitis of right shoulder Danam vivian Ortolano, SCIENCE LIAISON 2020 M77.01 Medial epicondylitis, right elbo w Amilcar Ortolano, SCIENCE LIAISON 2020 M75.51 Bursitis of right shoulder Danam vivian Ortolano, SCIENCE LIAISON 08/17/2020 M77.01 Medial epicondylitis, right elbo w [...] 2:30 pm - Chalo Barrios, PAnthonyA. at [place] 01/27/2021 - Chalo Barrios, PAnthonyA.* M25.531 Pain [...] AUTH REQUIRED FOR MRI OF RIGHT WRIST (12679) TO MRI. DG Created [address] [place] [address] [phone] Chalo Barrios PA MRI NO AUTH REQUIRED FOR MRI OF RIGHT WRIST (49321) TO MRI. DG Created [address] [place], [place] [address] [phone] Chalo Barrios PA REFERRAL NO AUTH REQUIRED FO R REFERRAL TO DR. BYNUM AT [facility] ORTHO TO BENDING SHED WORKER. DG Created [address] [place] [address] [phone] Chalo Barrios PA REFERRAL NO AUTH REQUIRED FO R REFERRAL TO DR. BYNUM AT [facility]TH[facility] TO BENDING SHED WORKER. DG Created [address] [place] [address] [phone] Chalo Barrios PA MRI NO AUTH REQUIRED FOR MRI OF LUMBAR SPINE W/ & W/O (22242) TO ALBINA LAW Created [address] [place] [address] [phone] Chalo Barrios, DUANE MRI NO AUTH REQUIRED FOR MRI OF LUMBAR SPINE W/ & W/O (98618) TO ALBINA LAW Created [address] [place] [address] [phone] Henok Burrell MD PT BASED ON MED. [facility] TO PT DEPT. NT Iban rosa [address] [place], [place] [address] [phone]
--- OUTSIDE RECORDS SUMMARY | 2021-02-25 02:38 | CCD | Continuity of Care Document ---
Author Author Dara DELACRUZ MD Organization Unknown Address [address] [facility] [place] [address] Phone [phone] Care Team Providers Care Life Insurance Specialist Name Role Phone AUTM Unavailable Ki Atwood D.O. AUTM [phone] Ailyn Kothari M.D. AUTM [phone] Problems Description No Information Available Social History Type Date Description Comments Sex Unknown ETOH Use 1-2 A Month BEER Recreational Drug Use Denies Drug Use Tobacco Use Start: Unknown End: Unknown Patient is a former smoker Quit in 2019 Allergies, Adverse Reactions, Alerts Active Allergies Criticality Reaction | Severity Comments Date Gabapentin Unable to assess criticality Nausea and Vomiting 01/11/2011 Latex Condoms Unable to assess criticality rash,bleeding,hives,swel ling 01/11/2011 Invokana Unable to assess criticality HIVES 01/23/2017 Medications Active Medications SIG Qnty Indications Ordering Provide r Date Metformin HCL 1000mg Tablets 1 bid Unknown Bupropion HCL ER (XL) 300mg Tablets ER 24HR 1 by mouth every day Unknown 000 Arnuity Ellipta 100mcg/Act Aerosol 1 puff every day Unknown Albuterol Sulfate Powder 2 puffs every 4hr as needed Unknown Novolog Flexpen 100U nit/ML Solution Pen-Inject Sliding scale Ki Magana D.O. Basaglar Kwikpen 100 Unit/ML Solution Pen-Inject 45 units twice daily Unknown 000 Reglan 5mg Tablets one tab as needed Unknown Triamcinolone Acetonide 0.1% Cream Twice daily Unknown Allergy Med 1 tab by mouth every day as needed Unknown Immunizations Description No Information Available Vital Signs Date Vital Result Comment 10/21/2020 10:37am BP Systolic 121 mmHg BP Diastolic 86 mmHg Heart Rate 106 /min Height 66 inches 5'6" Weight 245.25 lb BMI (Body Mass Index) 39.6 kg/m2 [place] Body Weight 130 lb Weight 111.245 kg BSA (Body Surface Area) 2.18 m2 10/14/2020 8:58am BP Systolic 150 mmHg BP Diastolic 82 mmHg Height 66 inches 5'6" Weight 250.00 lb BMI (Body Mass Index) 40.3 kg/m2 [place] Body Weight 130 lb Weight 113.400 kg BSA (Body Surface Area) 2.20 m2 Results Test Acquired Date Facility Test Result H/L Range Note Laboratory test finding 10/14/2020 [facility] [address] [place] [address] [phone] Pathology Request For Service (SEE NOTE) 1 1 FINAL DIAGNOSIS Soft tissue, left lower leg nodule, excision: Fibroconnective tissue with extensive granulation, inorganic foreign material, and hemosiderin laden macrophages, suggestive for foreign body and associated reactive changes. No evidence for malignancy. 10/18/2020 - 135 CLINICAL DIAGNOSIS Nodule left lower leg 10/15/2020 - 1336 GROSS DIAGNOSIS Received in formalin labeled "nodule left lower leg" and consists of one fragment of ernandez-blanco tissue measuring 1.3 x 1.0 x 0.6 cm. Sectioning of the specimen reveals a dark brown cystic lesion with possible calcific contents. Entirely submitted in one block after decalcification. -SVY 10/15/2020 - 1336 Signed MATTHEW MÉNDEZ MD 10/18/2020 1358 Procedures Date Code Description Status 10/14/2020 58494 Layer Closure Wound < 2.6CM S calp/Axillae/Trunk/Extremities Completed 10/14/2020 68967 Excise Benign Lesion 1.1-2CM Vladimir nk/Arm/Leg Completed 09/23/2020 97034 Office/Outpatient New Low MDM 30 -44 Minutes Completed 07/07/2020 96525 Office/Outpatient Established SF MDM 10-19 Min Completed Medical Devices Description No Information Available Encounters Type Date Location Provider Dx Diagnosis Office Visit 10/21/2020 10:45a [facility] DUANE Hoyos R22.42 Localized swelling, mass and lump, left lower limb Z48.817 Encntr for surgical aftcr fo l surgery on the skin, subcu Office Visit 09/23/2020 11:15a [facility] Francisco Delacruz MD R22.42 Localized swelling, mass and lump, left lower limb Office Visit 07/07/2020 7:30a [facility] Gopal Flanagan II, PA-C L03.211 Cellulitis of face Z09 Encntr for f/u exam aft trtm t for cond oth than malig neoplm Assessments Date Code Description Provider 10/21/2020 R22.42 Nodule of subcutaneous tissue of left lower leg DUANE Fuller 10/21/2020 Z48.817 Encounter for surgic al aftercare following surgery on the skin and subcutaneous tissue DUANE Fuller 10/14/2020 R22.42 Nodule of subcutaneous tissue of left lower leg Abhijeet Delacruz MD 09/23/2020 R22.42 Nodule of subcutaneous tissue of left lower leg Abhijeet Delacruz MD 07/07/2020 L03.211 Cellulitis of face Gopal Flanagan II, PA-C 07/07/2020 Z09 Encounter for follow -up examination after completed treatment for conditions other than malignant neoplasm Gopal Flanagan II, PA-C Plan of Treatment No Information Available Functional Status Description No Information Available Mental Status Description No Information Available Referrals Refer to Dr Reason for Referral Status Appt Date Enrique Decker D.O. RETAINED FB FRAGMENT Scheduled [address] [address] [phone]
--- OUTSIDE RECORDS SUMMARY | 2021-02-25 02:38 | CCD ---
Author Dara Saeed Organization Unknown Address [address] [address] Phone Care Team Providers Care Management Psychologist Name Role Phone Marc Ambrocio PCP Allergies, Adverse Reactions, Alerts No Data in Section Problem List Concept Problem Description Status Start Date Created Date Resolv ed Date Snomed Code F41.9 Unspecified Anxiety Disorder Active 07/11/2019 07/11/2019 F33.1 Major Depressive Disorder, Recurrent episode, Moderate Active 12/15/2020 F43.10 Posttraumatic Stress Disorde r (includes Posttraumatic Stress Disorder for Children 6 Years and Younger) Active 12/15/2020 Medications Rx Norm Medication Route Route Concept Start Date Stop Date Dosage Dominick quency Duration Formula Strength Dosage Form Dosage Form Code Dosage Description Medication Id Account Npid Author First Name Author Last Name Taxonomy Code Taxonomy Desc Phone Number [phone] bupropion HCl by mouth [id number] 05/25/2020 03/14/2021 once a day 90 300 mg tablet extended release 24 hr 14692 [id number] [id number] Marc Ambrocio [id number] Psychiatry [id number] Social History Social History Element Description Concept Effective Date Smoking Status Unknown if ever smoked [id number] Immunizations No Data in Section Vital Signs No Data in Section Procedures Date Concept Id Description Targeted Site Concept Targeted Site Concept Type 12/14/2020 96356-75 [facility] Telemed E/M Lvl 3--Est pt CPT Patient has no history of implantable de vices Encounters Encounter Start Date End Date Encounter Type Description Diagnosis Di agnosis Desc Location Author First Name Author Last Name Npid Taxonomy Cod e Taxonomy Desc Phone Number Location Addr1 Location Addr2 Location City Location [place] [id number] 12/14/2020 12/14/2020 64502-47 [facility] Telemed E/M Lvl 3--Est p t F41.9 Anxiety Disorder, Unspecified [facility] Cristóbal Tran [id number] Psychiatry [phone] [address] [address] Plan of Treatment No Data in Section Lab Results No Data in Section Instructions No Data in Section Functional Cognitive Status No Data in Section Insurance Providers Insurance Id Policy Effective Date Policy Thru Date Company N jennifer [id number] 2004 MEDICARE [id number] 2015 MEDICAID
--- OUTSIDE RECORDS SUMMARY | 2021-02-25 02:38 | CCD ---
Author Dara So Organization Unknown Address [address] [address] Phone Care Team Providers Care Ammonia Print Operator Name Role Phone Manuel Brittni PCP Allergies, Adverse Reactions, Alerts No Data in Section Problem List Concept Problem Description Status Start Date Created Date Resolv ed Date Snomed Code F41.9 Unspecified Anxiety Disorder Active 07/11/2019 07/11/2019 F33.1 Major Depressive Disorder, Recurrent episode, Moderate Active 12/29/2020 F43.10 Posttraumatic Stress Disorde r (includes Posttraumatic Stress Disorder for Children 6 Years and Younger) Active 12/29/2020 Medications Rx Norm Medication Route Route Concept Start Date Stop Date Dosage Dominick quency Duration Formula Strength Dosage Form Dosage Form Code Dosage Description Medication Id Account Npid Author First Name Author Last Name Taxonomy Code Taxonomy Desc Phone Number [phone] bupropion HCl by mouth [id number] 05/25/2020 03/14/2021 once a day 90 300 mg tablet extended release 24 hr 12591 [id number] [phone] Marc Ambrocio [id number] Psychiatry [phone] Social History Social History Element Description Concept Effective Date Smoking Status Unknown if ever smoked [id number] Immunizations No Data in Section Vital Signs No Data in Section Procedures Date Concept Id Description Targeted Site Concept Targeted Site Concept Type 12/27/2020 53425 Extended Individual Psychotherapy - 45 min CPT Patient has no history of implantable de vices Encounters Encounter Start Date End Date Encounter Type Description Diagnosis Di agnosis Desc Location Author First Name Author Last Name Npid Taxonomy Cod e Taxonomy Desc Phone Number Location Addr1 Location Addr2 Location City Location [place] Location Zip [address] 12/27/2020 12/27/2020 69776 Extended Individual Psych otherapy - 45 min F41.9 Anxiety Disorder, Unspecified [facility] Manuel Elkins [id number] [id number] Cranberry Grower [phone] [address] [address] Plan of Treatment No Data in Section Lab Results No Data in Section Instructions No Data in Section Insurance Providers Insurance Id Policy Effective Date Policy Thru Date Company Yesenia rodriguez [id number] 2004 MEDICARE [id number] MEDICAID
--- OUTSIDE RECORDS SUMMARY | 2021-02-25 02:43 | CCD ---
Author Author [facility] Organization [facility] Address Unknown Phone Unavailable Care Team Providers Care Garage Helper Name Role Phone Nikole Freire MD Unavailable Unavailable Nikole Freire MD Unavailable Unavailable Nikole Freire MD Unavailable Unavailable Nikole Freire MD Unavailable Unavailable Nikole Freire MD Unavailable Unavailable Nikole Freire MD Unavailable Unavailable Nikole Freire MD Unavailable Unavailable Nikole Freire MD Unavailable Unavailable Nikole Freire MD Unavailable Unavailable Nikole Freire MD Unavailable Unavailable Nikole Freire MD Unavailable Unavailable Nikole Freire MD Unavailable Unavailable Nikole Freire MD Unavailable Unavailable Nikole Freire MD Unavailable Unavailable Nikole Freire MD Unavailable Unavailable Nikole Freire MD Unavailable Unavailable Nikole Freire MD Unavailable Unavailable Nikole Freire MD Unavailable Unavailable Nikole Freire MD Unavailable Unavailable Nikole Freire MD Unavailable Unavailable Nikole Freire MD Unavailable Unavailable Nikole Freire MD Unavailable Unavailable Nikole Freire MD Unavailable Unavailable Nikole Freire MD Unavailable Unavailable Nikole Freire MD Unavailable Unavailable Nikole Freire MD Unavailable Unavailable Nikole Freire MD Unavailable Unavailable Nikole Freire MD Unavailable Unavailable Nikole Freire MD Unavailable Unavailable Nikole Freire MD Unavailable Unavailable Nikole Freire MD Unavailable Unavailable Nikole Freire MD Unavailable Unavailable Nikole Freire MD Unavailable Unavailable Nikole Freire MD Unavailable Unavailable Nikole Freire MD Unavailable Unavailable Nikole Freire MD Unavailable Unavailable Nikole Freire MD Unavailable Unavailable Nikole Freire MD Unavailable Unavailable Nikole Freire MD Unavailable Unavailable Nikole Freire MD Unavailable Unavailable Nikole Freire MD Unavailable Unavailable Nikole Freire MD Unavailable Unavailable Nikole Freire MD Unavailable Unavailable Nikole Freire MD Unavailable Unavailable Nikole Freire MD Unavailable Unavailable Nikole Freire MD Unavailable Unavailable Nikole Freire MD Unavailable Unavailable Nikole Freire MD Unavailable Unavailable Nikole Freire MD Unavailable Unavailable Nikole Freire MD Unavailable Unavailable Nikole Freire MD Unavailable Unavailable Nikole Freire MD Unavailable Unavailable Nikole Freire MD Unavailable Unavailable Nikole Freire MD Unavailable Unavailable Nikole Freire MD Unavailable Unavailable Nikole Freire MD Unavailable Unavailable Nikole Freire MD Unavailable Unavailable Nikole Freire MD Unavailable Unavailable Nikole Freire MD Unavailable Unavailable Nikole Freire MD Unavailable Unavailable Nikole Freire MD Unavailable Unavailable Nikole Freire MD Unavailable Unavailable Nikole Freire MD Unavailable Unavailable Nikole Freire MD Unavailable Unavailable Nikole Freire MD Unavailable Unavailable Nikole Freire MD Unavailable Unavailable Nikole Freire MD Unavailable Unavailable Nikole Freire MD Unavailable Unavailable Nikole Freire MD Unavailable Unavailable Nikole Freire MD Unavailable Unavailable Nikole Freire MD Unavailable Unavailable Nikole Freire MD Unavailable Unavailable Nikole Freire MD Unavailable Unavailable Nikole Freire MD Unavailable Unavailable Nikole Freire MD Unavailable Unavailable Nikole Freire MD Unavailable Unavailable Nikole Freire MD Unavailable Unavailable Nikole Freire MD Unavailable Unavailable Nikole Freire MD Unavailable Unavailable Nikole Freire MD Unavailable Unavailable Nikole Freire MD Unavailable Unavailable Nikole Freire MD Unavailable Unavailable Nikole Freire MD Unavailable Unavailable Nikole Freire MD Unavailable Unavailable Nikole Freire MD Unavailable Unavailable Nikole Freire MD Unavailable Unavailable Nikole Freire MD Unavailable Unavailable Nikole Freire MD Unavailable Unavailable Nikole Freire MD Unavailable Unavailable Nikole Freire MD Unavailable Unavailable Nikole Freire MD Unavailable Unavailable Nikole Freire MD Unavailable Unavailable Nikole Freire MD Unavailable Unavailable Dayna IRAHETA Unavailable Unavailable Deepika M Adilia PA Unavailable Unavailable Deepika, M Adilia PA Unavailable Unavailable Deepika, M Adilia PA Unavailable Unavailable Deepika, M Adilia PA Unavailable Unavailable Deepika, M Adilia PA Unavailable Unavailable Deepika, M Adilia PA Unavailable Unavailable Deepika, M Adilia PA Unavailable Unavailable Deepika, M Adilia PA Unavailable Unavailable Deepika, M Adilia PA Unavailable Unavailable Deepika, M Adilia PA Unavailable Unavailable Deepika, M Adilia PA Unavailable Unavailable Deepika, M Adilia PA Unavailable Unavailable Deepika, M Adilia PA Unavailable Unavailable Deepika, M Adilia PA Unavailable Unavailable Deepika, M Adilia PA Unavailable Unavailable Deepika, M Adilia PA Unavailable Unavailable Deepika, M Adilia PA Unavailable Unavailable Deepika, M Adilia PA Unavailable Unavailable Deepika, M Adilia PA Unavailable Unavailable Deepika, M Adilia PA Unavailable Unavailable Deepika, M Adilia PA Unavailable Unavailable Deepika, M Adilia PA Unavailable Unavailable Deepika, M Adilia PA Unavailable Unavailable Deepika, M Adilia PA Unavailable Unavailable Deepika, M Adilia PA Unavailable Unavailable Deepika, M Adilia PA Unavailable Unavailable Deepika, M Adilia PA Unavailable Unavailable Deepika, M Adilia PA Unavailable Unavailable Deepika, M Adilia PA Unavailable Unavailable Deepika, M Adilia PA Unavailable Unavailable Deepika, M Adilia PA Unavailable Unavailable Deepika, M Adilai PA Unavailable Unavailable Deepika, M Adilia PA Unavailable Unavailable Deepika, M Adilia PA Unavailable Unavailable Deepika, M Adilia PA Unavailable Unavailable Deepika, M Adilia PA Unavailable Unavailable Deepika, M Adilia PA Unavailable Unavailable Deepika, M Adilia PA Unavailable Unavailable Deepika, M Adilia PA Unavailable Unavailable Deepika, M Adilia PA Unavailable Unavailable Deepika, M Adilia PA Unavailable Unavailable Deepika, M Adilia PA Unavailable Unavailable Deepika, M Adilia PA Unavailable Unavailable Deepika, M Adilia PA Unavailable Unavailable Deepika, M Adilia PA Unavailable Unavailable Deepika, M Adilia PA Unavailable Unavailable Deepika, M Adilia PA Unavailable Unavailable Paty BYNUM MD Unavailable Unavailable Paty BYNUM MD Unavailable Unavailable Paty BYNUM MD Unavailable Unavailable Paty BYNUM MD Unavailable Unavailable Paty BYNUM MD Unavailable Unavailable Paty BYNUM MD Unavailable Unavailable Paty BYNUM MD Unavailable Unavailable Paty BYNUM MD Unavailable Unavailable Paty BYNUM MD Unavailable Unavailable Paty BYNUM MD Unavailable Unavailable Paty BYNUM MD Unavailable Unavailable Paty BYNUM MD Unavailable Unavailable Paty BYNUM MD Unavailable Unavailable Paty BYNUM MD Unavailable Unavailable Paty BYNUM MD Unavailable Unavailable Paty BYNUM MD Unavailable Unavailable Paty BYNUM MD Unavailable Unavailable Paty BYNUM MD Unavailable Unavailable Paty BYNUM MD Unavailable Unavailable Paty BYNUM MD Unavailable Unavailable Paty BYNUM MD Unavailable Unavailable Paty BYNUM MD Unavailable Unavailable Paty BYNUM MD Unavailable Unavailable Paty BYNUM MD Unavailable Unavailable Paty BYNUM MD Unavailable Unavailable FLETCHER, Paty FELTON MD Unavailable Unavailable FLETCHER, Paty FELTON MD Unavailable Unavailable FLETCHER, Paty FELTON MD Unavailable Unavailable FLETCHER, Paty FELTON MD Unavailable Unavailable FLETCHER, Paty FELTON MD Unavailable Unavailable FLETCHER, Paty FELTON MD Unavailable Unavailable FLETCHER, Paty FELTON MD Unavailable Unavailable FLETCHER, Paty FELTON MD Unavailable Unavailable FLETCHER, Paty FELTON MD Unavailable Unavailable FLETCHER, Paty FELTON MD Unavailable Unavailable FLETCHER, Paty FELTON MD Unavailable Unavailable FLETCHER, Paty FELTON MD Unavailable Unavailable FLETCHER, Paty FELTON MD Unavailable Unavailable FLETCHER, Paty FELTON MD Unavailable Unavailable FLETCHER, Paty FELTON MD Unavailable Unavailable FLETCHER, Paty FELTON MD Unavailable Unavailable FLETCHER, Paty FELTON MD Unavailable Unavailable FLETCHER, Paty FELTON MD Unavailable Unavailable FLETCHER, Paty FELTON MD Unavailable Unavailable FLETCHER, Paty FELTON MD Unavailable Unavailable FLETCHER, Paty FELTON MD Unavailable Unavailable FLETCHER, Paty FELTON MD Unavailable Unavailable FLETCHER, Paty FELTON MD Unavailable Unavailable FLETCHER, Paty FELTON MD Unavailable Unavailable FLETCHER, Paty FELTON MD Unavailable Unavailable FLETCHER, Paty FELTON MD Unavailable Unavailable FLETCHER, Paty FELTON MD Unavailable Unavailable FLETCHER, Paty FELTON MD Unavailable Unavailable FLETCHER, Paty FELTON MD Unavailable Unavailable FLETCHER, Paty FELTON MD Unavailable Unavailable FLETCHER, Paty FELTON MD Unavailable Unavailable FLETCHER, Paty FELTON MD Unavailable Unavailable FLETCHER, Paty FELTON MD Unavailable Unavailable FLETCHER, Paty FELTON MD Unavailable Unavailable FLETCHER, Paty FELTON MD Unavailable Unavailable FLETCHER, Paty FELTON MD Unavailable Unavailable FLETCHER, Paty FELTON MD Unavailable Unavailable FLETCHER, Paty FELTON MD Unavailable Unavailable FLETCHER, Paty FELTON MD Unavailable Unavailable FLETCHER, Paty FELTON MD Unavailable Unavailable FLETCHER, Paty FELTON MD Unavailable Unavailable FLETCHER, Paty FELTON MD Unavailable Unavailable FLETCHER, Paty FELTON MD Unavailable Unavailable FLETCHER, Paty FELTON MD Unavailable Unavailable FLETCHER, Paty FELTON MD Unavailable Unavailable FLETCHER, Paty FELTON MD Unavailable Unavailable FLETCHER, Paty FELTON MD Unavailable Unavailable FLETCHER, Paty FELTON MD Unavailable Unavailable FLETCHER, Paty FELTON MD Unavailable Unavailable FLETCHER, Paty FELTON MD Unavailable Unavailable FLETCHER, Paty FELTON MD Unavailable Unavailable FLETCHER, Paty FELTON MD Unavailable Unavailable FLETCHER, Paty FELTON MD Unavailable Unavailable FLETCHER, Paty FELTON MD Unavailable Unavailable FLETCHER, Paty FELTON MD Unavailable Unavailable FLETCHER, Paty FELTON MD Unavailable Unavailable FLETCHER, Paty FELTON MD Unavailable Unavailable FLETCHER, Paty FELTON MD Unavailable Unavailable FLETCHER, Paty FELTON MD Unavailable Unavailable FLETCHER, Paty FELTON MD Unavailable Unavailable FLETCHER, Paty FELTON MD Unavailable Unavailable FLETCHER, Paty FELTON MD Unavailable Unavailable FLETCHER, Paty FELTON MD Unavailable Unavailable FLETCHER, F JOSE FRANCISCO MD Unavailable Unavailable Paty BYNUM MD Unavailable Unavailable Paty BYNUM MD Unavailable Unavailable Paty BYNUM MD Unavailable Unavailable Paty BYNUM MD Unavailable Unavailable Paty BYNUM MD Unavailable Unavailable Paty BYNUM MD Unavailable Unavailable Paty BYNUM MD Unavailable Unavailable Paty BYNUM MD Unavailable Unavailable Paty BYNUM MD Unavailable Unavailable Paty BYNUM MD Unavailable Unavailable Paty BYNUM MD Unavailable Unavailable Scordo, M Cher PA Unavailable Unavailable Scordo, M Cher PA Unavailable Unavailable Scordo, M Cher PA Unavailable Unavailable Scordo, M Cher PA Unavailable Unavailable Scordo, M Cher PA Unavailable Unavailable Scordo, M Cher PA Unavailable Unavailable Scordo, M Cher PA Unavailable Unavailable Scordo, M Cher PA Unavailable Unavailable Scordo, M Cher PA Unavailable Unavailable Scordo, M Cher PA Unavailable Unavailable Scordo, M Cher PA Unavailable Unavailable Scordo, M Cher PA Unavailable Unavailable Scordo, M Cher PA Unavailable Unavailable Scordo, M Cher PA Unavailable Unavailable Scordo, M Cher PA Unavailable Unavailable Scordo, M Cher PA Unavailable Unavailable Scordo, M Cher PA Unavailable Unavailable Scordo, M Cher PA Unavailable Unavailable Scordo, M Cher PA Unavailable Unavailable Scordo, M Cher PA Unavailable Unavailable Scordo, M Cher PA Unavailable Unavailable Scordo, M Cher PA Unavailable Unavailable Scordo, M Cher PA Unavailable Unavailable Scordo, M Cher PA Unavailable Unavailable Scordo, M Cher PA Unavailable Unavailable Scordo, M Cher PA Unavailable Unavailable Scordo, M Cher PA Unavailable Unavailable Scordo, M Cher PA Unavailable Unavailable Scordo, M Cher PA Unavailable Unavailable Scordo, M Cher PA Unavailable Unavailable Scordo, M Cher PA Unavailable Unavailable Scordo, M Cher PA Unavailable Unavailable Scordo, M Cher PA Unavailable Unavailable Scordo, M Cher PA Unavailable Unavailable Scordo, M Cher PA Unavailable Unavailable Scordo, M Cher PA Unavailable Unavailable Scordo, M Cher PA Unavailable Unavailable Scordo, M Cher PA Unavailable Unavailable Scordo, M Cher PA Unavailable Unavailable Scordo, M Cher PA Unavailable Unavailable Scordo, M Cher PA Unavailable Unavailable Scordo, M Cher PA Unavailable Unavailable Scordo, M Cher PA Unavailable Unavailable Scordo, M Cher PA Unavailable Unavailable Scordo, M Cher PA Unavailable Unavailable Scordo, M Cher PA Unavailable Unavailable Scordo, M Cher PA Unavailable Unavailable Genevieve CATES MD Unavailable Unavailable Genevieve CATES MD Unavailable Unavailable Genevieve CATES MD Unavailable Unavailable Genevieve CATES MD Unavailable Unavailable Genevieve CATES MD Unavailable Unavailable Genevieve CATES MD Unavailable Unavailable Genevieve CATES MD Unavailable Unavailable Genevieve CATES MD Unavailable Unavailable Genevieve CATES MD Unavailable Unavailable Genevieve CATES MD Unavailable Unavailable Genevieve CATES MD Unavailable Unavailable Genevieve CATES MD Unavailable Unavailable Genevieve CATES MD Unavailable Unavailable Genevieve CATES MD Unavailable Unavailable Genevieve CATES MD Unavailable Unavailable Genevieve CATES MD Unavailable Unavailable Genevieve CATES MD Unavailable Unavailable Genevieve CATES MD Unavailable Unavailable Genevieve CATES MD Unavailable Unavailable Genevieve CATES MD Unavailable Unavailable Genevieve CATES MD Unavailable Unavailable Genevieve CATES MD Unavailable Unavailable Genevieve CATES MD Unavailable Unavailable Genevieve CATES MD Unavailable Unavailable Genevieve CATES MD Unavailable Unavailable Genevieve CATES MD Unavailable Unavailable Genevieve CATES MD Unavailable Unavailable Genevieve CATES MD Unavailable Unavailable Genevieve CATES MD Unavailable Unavailable Genevieve CATES MD Unavailable Unavailable Genevieve CATES MD Unavailable Unavailable Genevieve CATES MD Unavailable Unavailable Genevieve CATES MD Unavailable Unavailable Genevieve CATES MD Unavailable Unavailable Genevieve CATES MD Unavailable Unavailable JADIEL MAR Unavailable Unavailable JADIEL MAR Unavailable Unavailable JADIEL MAR Unavailable Unavailable JADIEL MAR Unavailable Unavailable MCELHERAN, JADIEL PA Unavailable Unavailable MCELHERAN, JADIEL PA Unavailable Unavailable MCELHERAN, JADIEL PA Unavailable Unavailable MCELHERAN, JADIEL PA Unavailable Unavailable MCELHERAN, JADIEL PA Unavailable Unavailable MCELHERAN, JADIEL PA Unavailable Unavailable MCELHERAN, JADIEL PA Unavailable Unavailable MCELHERAN, JADIEL PA Unavailable Unavailable MCELHERAN, JADIEL PA Unavailable Unavailable MCELHERAN, JADIEL PA Unavailable Unavailable MCELHERAN, JADIEL PA Unavailable Unavailable MCELHERAN, JADIEL PA Unavailable Unavailable MCELHERAN, JADIEL PA Unavailable Unavailable MCELHERAN, JADEIL PA Unavailable Unavailable MCELHERAN, JADIEL PA Unavailable Unavailable MCELHERAN, JADIEL PA Unavailable Unavailable MCELHERAN, JADIEL PA Unavailable Unavailable MCELHERAN, JADIEL PA Unavailable Unavailable MCELHERAN, JADIEL PA Unavailable Unavailable MCELHERAN, JADIEL PA Unavailable Unavailable MCELHERAN, JADIEL PA Unavailable Unavailable MCELHERAN, JADIEL PA Unavailable Unavailable MCELHERAN, JADIEL PA Unavailable Unavailable MCELHERAN, JADIEL PA Unavailable Unavailable MCELHERAN, JADIEL PA Unavailable Unavailable GT CLEO, CHEMO Unavailable Unavailable Henok Ambrocio MD Unavailable Unavailable Henok Ambrocio MD Unavailable Unavailable Henok Ambrocio MD Unavailable Unavailable Henok Ambrocio MD Unavailable Unavailable Cerasani, A Leslie Unavailable Cerasani, A Leslie Unavailable Cerasani, A Leslie Unavailable Cerasani, A Leslie Unavailable Kendall, L Tea RPA Unavailable Unavailable Kendall, L Tea RPA Unavailable Unavailable Kendall, L Tea RPA Unavailable Unavailable Kendall, L Tea RPA Unavailable Unavailable Kendall, L Tea RPA Unavailable Unavailable Kendall, L Tea RPA Unavailable Unavailable Kendall, L Tea RPA Unavailable Unavailable Kendall, L Tea RPA Unavailable Unavailable Kendall, L Tea RPA Unavailable Unavailable Kendall, L Tea RPA Unavailable Unavailable Kendall, L Tea RPA Unavailable Unavailable Kendall, L Tea RPA Unavailable Unavailable Kendall, L Tea RPA Unavailable Unavailable Kendall, L Tea RPA Unavailable Unavailable Kendall, L Tea RPA Unavailable Unavailable Kendall, L Tea RPA Unavailable Unavailable Kendall, L Tea RPA Unavailable Unavailable Kendall, L Tea RPA Unavailable Unavailable Kendall, L Tea RPA Unavailable Unavailable Kendall, L Tea RPA Unavailable Unavailable Kendall, L Tea RPA Unavailable Unavailable Kendall, L Tea RPA Unavailable Unavailable Kendall, L Tea RPA Unavailable Unavailable Kendall, L Tea RPA Unavailable Unavailable Kendall, L Tea RPA Unavailable Unavailable Kendall, L Tea RPA Unavailable Unavailable Kendall, L Tea RPA Unavailable Unavailable Kendall, L Tea RPA Unavailable Unavailable Kendall, L Tea RPA Unavailable Unavailable Kendall, L Tea RPA Unavailable Unavailable Kendall, L Tea RPA Unavailable Unavailable Kendall, L Tea RPA Unavailable Unavailable CERASANI, A LESLIE Unavailable Unavailable CHAMBERGISELLA R ARDEN Unavailable Unavailable Saniya, Zelda Unavailable Unavailable Saniya, Zelda Unavailable Unavailable Saniya, Zelda Unavailable Unavailable Saniya, Zelda Unavailable Unavailable Saniya, Zelda Unavailable Unavailable Saniya, Zelda Unavailable Unavailable Saniya, Zelda Unavailable Unavailable Saniya, Zelda Unavailable Unavailable Saniya, Zelda Unavailable Unavailable Saniya, Zelda Unavailable Unavailable Saniya, Zelda Unavailable Unavailable Saniya, Zelda Unavailable Unavailable Saniya, Zelda Unavailable Unavailable Saniya, Zelda Unavailable Unavailable Saniya, Zelda Unavailable Unavailable Saniya, Zelda Unavailable Unavailable Saniya, Zelda Unavailable Unavailable Saniya, Zelda Unavailable Unavailable Saniya, Zelda Unavailable Unavailable Saniya, Zelda Unavailable Unavailable Saniya, Zelda Unavailable Unavailable Saniya, Zelda Unavailable Unavailable Saniya, Zelda Unavailable Unavailable Saniya, Zelda Unavailable Unavailable Saniya, Zelda Unavailable Unavailable Saniya, Zelda Unavailable Unavailable Saniya, Zelda Unavailable Unavailable MAJAK, R DAQUAN DPM Unavailable Unavailable MAJAK, R DAQUAN DPM Unavailable Unavailable MAJAK, R DAQUAN DPM Unavailable Unavailable MAJAK, R DAQUAN DPM Unavailable Unavailable MAJAK, R DAQUAN DPM Unavailable Unavailable MAJAK, R DAQUAN DPM Unavailable Unavailable MAJAK, R DAQUAN DPM Unavailable Unavailable MAJAK, R DAQUAN DPM Unavailable Unavailable MAJAK, R DAQUAN DPM Unavailable Unavailable MAJAK, R DAQUAN DPM Unavailable Unavailable MAJAK, R DAQUAN DPM Unavailable Unavailable MAJAK, R DAQUAN DPM Unavailable Unavailable MAJAK, R DAQUAN DPM Unavailable Unavailable MAJAK, R DAQUAN DPM Unavailable Unavailable MAJAK, R DAQUAN DPM Unavailable Unavailable MAJAK, R DAQUAN DPM Unavailable Unavailable MAJAK, R DAQUAN DPM Unavailable Unavailable MAJAK, R DAQUAN DPM Unavailable Unavailable MAJAK, R DAQUAN DPM Unavailable Unavailable MAJAK, R DAQUAN DPM Unavailable Unavailable MAJAK, R DAQUAN DPM Unavailable Unavailable MAJAK, R DAQUAN DPM Unavailable Unavailable MAJAK, R DAQUAN DPM Unavailable Unavailable MAJAK, R DAQUAN DPM Unavailable Unavailable MAJAK, R DAQUAN DPM Unavailable Unavailable MAJAK, R DAQUAN DPM Unavailable Unavailable MAJAK, R DAQUAN DPM Unavailable Unavailable MAJAK, R DAQUAN DPM Unavailable Unavailable MAJAK, R DAQUAN DPM Unavailable Unavailable MAJAK, R DAQUAN DPM Unavailable Unavailable MAJAK, R DAQUAN DPM Unavailable Unavailable MAJAK, R DAQUAN DPM Unavailable Unavailable COOKIE KOTHARI Unavailable Unavailable Dayna Iraheta AGPCNP Unavailable Unavailable Dayna Iraheta AGPCNP Unavailable Unavailable Dayna Iraheta AGPCNP Unavailable Unavailable Brittni Jackson Unavailable ARIF, Mell SIMS MD Unavailable Unavailable ARIF, O LEVI PORTER Unavailable Unavailable ARIF, O LEVI PORTER Unavailable Unavailable ARIF, O LEVI PORTER Unavailable Unavailable ARIF, O LEVI PORTER Unavailable Unavailable ARIF, O LEVI PORTER Unavailable Unavailable ARIF, O LEVI PORTER Unavailable Unavailable ARIF, O LEVI PORTER Unavailable Unavailable ARIF, O LEVI PORTER Unavailable Unavailable ARIF, O LEVI PORTER Unavailable Unavailable ARIF, O LEVI PORTER Unavailable Unavailable ARIF, O LEVI PORTER Unavailable Unavailable ARIF, O LEVI PORTER Unavailable Unavailable ARIF, O LEVI PORTER Unavailable Unavailable ARIF, O LEVI PORTER Unavailable Unavailable ARIF, O LEVI PORTER Unavailable Unavailable ARIF, O LEVI PORTER Unavailable Unavailable ARIF, O LEVI PORTER Unavailable Unavailable ARIF, O LEVI PORTER Unavailable Unavailable ARIF, O LEVI PORTER Unavailable Unavailable ARIF, O LEVI PORTER Unavailable Unavailable ARIF, O LEVI PORTER Unavailable Unavailable ARIF, O LEVI PORTER Unavailable Unavailable ARIF, O LEVI PORTER Unavailable Unavailable ARIF, O SIMS MD Unavailable Unavailable ARIF, O SIMS MD Unavailable Unavailable ARIF, O SIMS MD Unavailable Unavailable ARIF, O SIMS Unavailable Unavailable ARIF, O SIMS Unavailable Unavailable ARIF, O SIMS Unavailable Unavailable ARIF, O SIMS Unavailable Unavailable ARIF, O SIMS Unavailable Unavailable ARIF, O SIMS Unavailable Unavailable ARIF, O SIMS Unavailable Unavailable ARIF, O SIMS Unavailable Unavailable ARIF, O SIMS Unavailable Unavailable ARIF, O SIMS Unavailable Unavailable ARIF, O SIMS Unavailable Unavailable ARIF, O LEVI PORTER Unavailable Unavailable ARIF, O SIMS MD Unavailable Unavailable ARIF, O SIMS Unavailable Unavailable ARIF, O SIMS Unavailable Unavailable ARIF, O SIMS Unavailable Unavailable ARIF, O SIMS Unavailable Unavailable ARIF, O SIMS MD Unavailable Unavailable Gt Cleo, Chemo Unavailable [phone] Gt Cleo, Chemo Unavailable [phone] Gt Cleo, Chemo Unavailable Gt Cleo, Chemo Unavailable [phone] Gt Cleo, Chemo Unavailable [phone] Gt Cleo, Chemo Unavailable [phone] Gt Cleo, Chemo Unavailable [phone] Gt Cleo, Chemo Unavailable [phone] GERSON, Siena PA-C Unavailable Unavailable GERSON, Siena PA-C Unavailable Unavailable GERSON, Siena PA-C Unavailable Unavailable GERSON, Siena PA-C Unavailable Unavailable GERSON, Siena PA-C Unavailable Unavailable GERSON, Siena PA-C Unavailable Unavailable GERSON, Siena PA-C Unavailable Unavailable GERSON, Siena PA-C Unavailable Unavailable GERSON, Siena PA-C Unavailable Unavailable GERSON, Siena PA-C Unavailable Unavailable GERSON, Siena PA-C Unavailable Unavailable GERSON, Siena PA-C Unavailable Unavailable GERSON, Siena PA-C Unavailable Unavailable GERSON, Siena PA-C Unavailable Unavailable GERSON, Siena PA-C Unavailable Unavailable GERSON, Siena PA-C Unavailable Unavailable GERSON, Siena PA-C Unavailable Unavailable GERSON, Siena PA-C Unavailable Unavailable GERSON, Siena PA-C Unavailable Unavailable GERSON, Siena PA-C Unavailable Unavailable GERSON, Siena PA-C Unavailable Unavailable GERSON, Siena PA-C Unavailable Unavailable GERSON, Siena PA-C Unavailable Unavailable GERSON, Siena PA-C Unavailable Unavailable GERSON, Siena PA-C Unavailable Unavailable GERSON, Siena PA-C Unavailable Unavailable GERSON, Siena PA-C Unavailable Unavailable GERSON, Siena PA-C Unavailable Unavailable GERSON, Siena PA-C Unavailable Unavailable GERSON, Siena PA-C Unavailable Unavailable GERSON, Siena PA-C Unavailable Unavailable GERSON, Siena PA-C Unavailable Unavailable GERSON, Siena PA-C Unavailable Unavailable GERSON, Siena PA-C Unavailable Unavailable GERSON, Siena PA-C Unavailable Unavailable GEROSN, Siena PA-C Unavailable Unavailable GERSON, Siena PA-C Unavailable Unavailable GERSON, Siena PA-C Unavailable Unavailable GERSON, Siena PA-C Unavailable Unavailable GERSON, Siena PA-C Unavailable Unavailable GERSON, Siena PA-C Unavailable Unavailable GERSON, Siena PA-C Unavailable Unavailable GERSON, Siena PA-C Unavailable Unavailable GERSON, Siena PA-C Unavailable Unavailable Panchito II, Gopal PA Unavailable Unavailable Panchito II, Gopal PA Unavailable Unavailable Panchito II, Gopal PA Unavailable Unavailable Panchito II, Gopal PA Unavailable Unavailable Panchito II, Gopal PA Unavailable Unavailable Panchito II, Gopal PA Unavailable Unavailable Panchito II, Gopal PA Unavailable Unavailable Panchito II, Gopal PA Unavailable Unavailable Panchito II, Gopal PA Unavailable Unavailable Panchito II, Gopal PA Unavailable Unavailable Panchito II, Gopal PA Unavailable Unavailable Panchito II, Gopal PA Unavailable Unavailable Panchito II, Gopal PA Unavailable Unavailable Panchito II, Gopal PA Unavailable Unavailable Panchito II, Gopal PA Unavailable Unavailable Panchito II, Gopal PA Unavailable Unavailable Panchito II, Gopal PA Unavailable Unavailable Panchito II, Gopal PA Unavailable Unavailable Panchito II, Gopal PA Unavailable Unavailable Gayle Burrell MD Unavailable Unavailable Gayle Burrell MD Unavailable Unavailable Gayle Burrell MD Unavailable Unavailable Gayle Burrell MD Unavailable Unavailable Gayle Burrell MD Unavailable Unavailable Gayle Burrell MD Unavailable Unavailable Gayle Burrell MD Unavailable Unavailable Gayle Burrell MD Unavailable Unavailable Gayle Burrell MD Unavailable Unavailable Gayle Burrell MD Unavailable Unavailable Gayle Burrell MD Unavailable Unavailable Abriss, Genevieve Whiting MD Unavailable Unavailable Abriss, Genevieve Whiting MD Unavailable Unavailable Abriss, Genevieve Whiting MD Unavailable Unavailable Abriss, B Henok PORTER Unavailable Unavailable Abriss, B Henok PORTER Unavailable Unavailable Abriss, B Henok PORTER Unavailable Unavailable Abriss, B Henok PORTER Unavailable Unavailable Abriss, B Henok PORTER Unavailable Unavailable Abriss, B Henok PORTER Unavailable Unavailable Abriss, B Henok PORTER Unavailable Unavailable Abriss, B Henok PORTER Unavailable Unavailable Abriss, B Henok PORTER Unavailable Unavailable Abriss, B Henok PORTER Unavailable Unavailable Abriss, B Henok PORTER Unavailable Unavailable Abriss, B Henok PORTER Unavailable Unavailable Abriss, B Henok PORTER Unavailable Unavailable Abriss, B Henok PORTER Unavailable Unavailable Abriss, B Henok PORTER Unavailable Unavailable Abriss, B Henok PORTER Unavailable Unavailable Kami Gunn Unavailable LUCA HOYT MD Unavailable Unavailable LUCA HOYT MD Unavailable Unavailable LUCA HOYT MD Unavailable Unavailable LUCA HOYT MD Unavailable Unavailable LUCA HOYT MD Unavailable Unavailable LUCA HOYT MD Unavailable Unavailable LUCA HOYT MD Unavailable Unavailable EGORHO, F ZAHEER FPMHNP Unavailable Unavailable EGORHO, F ZAHEER FPMHNP Unavailable Unavailable EGORHO, F ZAHEER FPMHNP Unavailable Unavailable EGORHO, F ZAHEER FPMHNP Unavailable Unavailable EGORHO, F ZAHEER FPMHNP Unavailable Unavailable EGORHO, F ZAHEER FPMHNP Unavailable Unavailable EGORHO, F ZAHEER FPMHNP Unavailable Unavailable EGORHO, F ZAHEER FPMHNP Unavailable Unavailable EGORHO, F ZAHEER FPMHNP Unavailable Unavailable Re-disclosure Warning The records that you are about to access may contain information from federally-assisted alcohol or drug abuse programs. If such information is present, then the following federally mandated warning applies: This information has been disclosed to you from records protected by federal confidentiality rules (42 CFR part 2). The federal rules prohibit you from making any further disclosure of this information unless further disclosure is expressly permitted by the written consent of the person to whom it pertains or as otherwise permitted by 42 CFR part 2. A general authorization for the release of medical or other information is NOT sufficient for this purpose. The Federal rules restrict any use of the information to criminally investigate or prosecute any alcohol or drug abuse patient.The records that you are about to access may contain highly sensitive health information, the redisclosure of which is protected by Article 27-F of the [facility] Public Health law. If you continue you may have access to information: Regarding HIV / AIDS; Provided by facilities licensed or operated by the [facility] Office of Mental Health; or Provided by the [facility] Office for People With Developmental Disabilities. If such information is present, then the following [facility] mandated warning applies: This information has been disclosed to you from confidential records which are protected by state law. State law prohibits you from making any further disclosure of this information without the specific written consent of the person to whom it pertains, or as otherwise permitted by law. Any unauthorized further disclosure in violation of state law may result in a fine or senior living sentence or both. A general authorization for the release of medical or other information is NOT sufficient authorization for further disc losure. Family History Family Member Name Family Member Gender Family Member Status Date o f Status Description Data Source(s) Unknown Unknown Problem [facility] ([facility] Unknown Unknown Problem [facility] ([facility]) Unknown Female Problem [facility] ([facility] ) Encounters Encounter Providers Location Date Indications Data Source(s ) Outpatient Attender: LUCA HOYT MD 05/19/2021 12:00:00 AM [facility] Outpatient Attender: Chemo GalloAttender: HEIDI GALLO 05/11/2021 12:00:00 AM [facility] Outpatient Attender: Adilia ZEPEDA 04/15/2021 12:00:00 AM [facility] Outpatient Attender: DAQUAN PEREYRA [facility] 02/07 12:15:00 PM EST [facility] ([facility] Outpatient Attender: EDGAR Chadwick cb: Edgar Iraheta AGPCNPReferrer: AILYN KOTHARI [id number] 02/14/2021 12:00:00 AM EST - 02/14/2021 10:26:18 AM [facility] Outpatient Attender: DAQUAN PEREYRA [facility] Office 01/08 03:00:00 PM EDT [facility] ([facility] Extended Individual Psychotherapy - 45 min Attender: Brittni Manuel [facility] 02/03/2021 10:00:00 AM EDT - 02/03/2021 10:00:00 AM EDT [facility] ([facility]) Attender: Brittni Jackson 02/03/2021 12:00:00 AM EDT [facility] ([facility]) OFFICE OUTPATIENT VISIT 15 MINUTES Attender: JADIEL ZEPEDA Physical Therapy 01/27/2021 02:00:00 PM EDT [facility] ([facility] ) Extended Individual Psychotherapy - 45 min Attender: Brittni Jackson [facility] 01/26/2021 11:00:00 AM EDT - 01/26/2021 11:00:00 AM EDT [facility] ([facility]) Attender: Brittni Jackson 01/26/2021 12:00:00 AM EDT [facility] ([facility]) Outpatient Attender: Siena ZEPEDA-CAttatyana: RAISA NEFF MD 01/13/2021 12:00:00 AM [facility] Outpatient Attender: Adilia ZEPEDA [id number] 01/07/2021 12:00:0 0 AM [facility] Attender: Brittni Jackson 01/07/2021 12:00:00 AM EDT [facility] ([facility]) TEMPMHCTelemed 30" Psychotherapy Attender: Brittni Jackson [facility] 01/06/2021 12:00:00 PM EDT - 01/06/2021 12:00:00 PM EDT [facility] ([facility]) Ailyn Kothari MD: [address] [place] [phone], Ph. Attender: Zelda Saniya [facility] Medical 01/05/2021 12:00:00 AM EDT [facility] ([facility]) Outpatient Attender: Adilia ZEPEDA 12/31/2020 12:00:00 AM EDT [facility] Attender: Brittni Jackson 12/29/2020 12:00:00 AM EDT [facility] ([facility]) Extended Individual Psychotherapy - 45 min Attender: Brittni Jackson [facility] 12/27/2020 01:00:00 AM EDT - 12/27/2020 01:00:00 AM EDT [facility] ([facility]) Outpatient Attender: Marc Ambrocio MD [facility] magdiel 12/14/2020 08:00:00 AM EDT - 12/14/2020 08:00:00 AM EDT [facility] ([facility]) Attender: Marc Ambrocio MD 12/14/2020 12:00:00 AM EDT [facility] ([facility]) Outpatient Referrer: JOSE FRANCISCO BYNUM MD 12/02/2020 1 2:00:00 AM EDT Radiculopathy, lumbar region [facility] Radiculopathy, lumbar region Outpatient Attender: JOSE FRANCISCO BYNUM MD [id number] 12/02/2020 1 2:00:00 AM EDT Radiculopathy, lumbar region [facility] Radiculopathy, lumbar region Nate Freire MD: [address] [place] [phone], Ph. Attender: Nate Freire MD [facility] Medical 11/26/2020 12:00:00 AM EDT [facility] ([facility]) Nate Freire MD: [address] [place] [phone], Ph. Attender: Nate Freire MD [facility] Medical 11/26/2020 12:00:00 AM EDT [facility] ([facility]) Attender: Brittni Jackson 11/25/2020 12:00:00 AM EDT [facility] ([facility]) Extended Individual Psychotherapy - 45 min Attender: Brittni Jackson [facility] 11/24/2020 03:00:00 AM EDT - 11/24/2020 03:00:00 AM EDT [facility] ([facility]) Ailyn Kothari MD: [address], [facility] [place] [address], Ph. Attender: Ailyn Kothari [facility] 11/24/2020 12:00:00 AM EDT [facility] ([facility]) Ailyn Kothari MD: [address], [facility] [facility] [place] [address], Ph. Attender: Ailyn Kothari [facility] 11/24/2020 12:00:00 AM EDT [facility] ([facility]) Ailyn Kothari MD: [address], [facility] [place] [address], Ph. Attender: Ailyn Kothari [facility] 11/24/2020 12:00:00 AM EDT [facility] ([facility]) Attender: Brittni Jackson 11/12/2020 12:00:00 AM EDT [facility] ([facility]) Outpatient Attender: ARDEN MASReferrer: LESLIE GORMAN 11/11/2020 12:00:00 AM EDT Personal history of other diseases of th e nervous system and sense organs [facility] Personal history of other diseases of th e nervous system and sense organs Brief Individual Psychotherapy - 30 min Attender: Brittni varela [facility] 11/10/2020 03:00:00 AM EDT - 11/10/2020 03:00:00 AM EDT [facility] ([facility]) Health Monitoring - 30 Min Attender: Kami Gunn [facility] 11/10/2020 02:00:00 AM EDT - 11/10/2020 02:00:00 AM EDT [facility] ([facility]) Health Monitoring - 15 Min Attender: Kami Gunn [facility] 11/10/2020 02:00:00 AM EDT - 11/10/2020 02:00:00 AM EDT [facility] ([facility]) Attender: Kami Gunn 11/10/2020 12:00:00 AM EDT [facility] ([facility]) Ailyn Kothari MD: [address], [place] [address], Ph. Attender: Ailyn Kothari [facility] Medical 11/08/2020 12:00:00 AM EDT [facility] ([facility]) Ailyn Kothari MD: [address], [place] [address], Ph. Attender: Ailyn Kothari [facility] Medical 11/08/2020 12:00:00 AM EDT [facility] ([facility]) Ailyn Kothari MD: [address], [place] [address], Ph. Attender: Ailyn Kothari [facility] Medical 11/08/2020 12:00:00 AM EDT [facility] ([facility]) Ailyn Kothari MD: [address], [place] [address], Ph. Attender: Ailyn Kothari [facility] Medical 11/08/2020 12:00:00 AM EDT [facility] ([facility]) Ailyn Kothari MD: [address], [place] [address], Ph. Attender: Ailyn Kothari [facility] Medical 11/03/2020 12:00:00 AM EDT [facility] ([facility]) Ailyn Kothari MD: [address], [place] [address], Ph. Attender: Ailyn Kothari [facility] Medical 11/03/2020 12:00:00 AM EDT [facility] ([facility]) Ailyn Kothari MD: [address], [place] [address], Ph. Attender: Ailyn Kothari [facility] Medical 11/03/2020 12:00:00 AM EDT [facility] ([facility]) Ailyn Kothari MD: [address], [place] [address], Ph. Attender: Ailyn Kothari [facility] Medical 11/03/2020 12:00:00 AM EDT [facility] ([facility]) Ailyn Kothari MD: [address], [place] [address], Ph. Attender: Ailyn Kothari [facility] Medical 11/03/2020 12:00:00 AM EDT [facility] ([facility]) Ailyn Kothari MD: [address], [place] [address], Ph. Attender: Ailyn Kothari [facility] Medical 10/29/2020 12:00:00 AM EDT [facility] ([facility]) Ailyn Kothari MD: [address], [place] [address], Ph. Attender: Ailyn Kothari [facility] Medical 10/29/2020 12:00:00 AM EDT [facility] ([facility]) Ailyn Kothari MD: [address], [place] [address], Ph. Attender: Ailyn Kothari [facility] Medical 10/29/2020 12:00:00 AM EDT [facility] ([facility]) Ailyn Kothari MD: [address], [place] [address], Ph. Attender: Ailyn Kothari [facility] Medical 10/29/2020 12:00:00 AM EDT [facility] ([facility]) Ailyn Kothari MD: [address], [place] [address], Ph. Attender: Ailyn Kothari [facility] Medical 10/29/2020 12:00:00 AM EDT [facility] ([facility]) Ailyn Kothari MD: [address], [place] [address], Ph. Attender: Ailyn Kothari [facility] Medical 10/29/2020 12:00:00 AM EDT [facility] ([facility]) Attender: Brittni Jackson 10/28/2020 12:00:00 AM EDT [facility] ([facility]) Extended Individual Psychotherapy - 45 min Attender: Brittni Jackson [facility] 10/27/2020 03:00:00 AM EDT - 10/27/2020 03:00:00 AM EDT [facility] ([facility]) Office Visit Attender: Tea Belcher/Talon/Jono/Maria L hadley 10/21/2020 10:45:00 AM EDT [facility] ([facility]) Ailyn Kothari MD: [address], [place] [address], Ph. Attender: Ailyn Kothari [facility] Medical 10/20/2020 12:00:00 AM EDT [facility] ([facility]) Ailyn Kothari MD: [address], [place] [address], Ph. Attender: Ailyn Kothari [facility] Medical 10/20/2020 12:00:00 AM EDT [facility] ([facility]) Ailyn Kothari MD: [address], [place] [address], Ph. Attender: Ailyn Kothari [facility] Medical 10/20/2020 12:00:00 AM EDT [facility] ([facility]) Ailyn Kothari MD: [address], [place] [address], Ph. Attender: Ailyn Kothari [facility] Medical 10/20/2020 12:00:00 AM EDT [facility] ([facility]) Ailyn Kothari MD: [address], [place] [address], Ph. Attender: Ailyn Kothari [facility] Medical 10/20/2020 12:00:00 AM EDT [facility] ([facility]) Ailyn Kothari MD: [address], [place] [address], Ph. Attender: Ailyn Kothari [facility] Medical 10/20/2020 12:00:00 AM EDT [facility] ([facility]) Ailyn Kothari MD: [address], [place] [address], Ph. Attender: Ailyn Kothari [facility] Medical 10/20/2020 12:00:00 AM EDT [facility] ([facility]) Ailyn Kothari MD: [address] [place] [address], Ph. Attender: Ailyn Kothari [facility] Medical 10/20/2020 12:00:00 AM EDT [facility] ([facility]) Ailyn Kothari MD: [address] [place] [address], Ph. Attender: Ailyn Kothari [facility] Medical 10/20/2020 12:00:00 AM EDT [facility] ([facility]) Outpatient Attender: Marc Ambrocio MD [facility] magdiel 10/19/2020 09:00:00 AM EDT - 10/19/2020 09:00:00 AM EDT [facility] ([facility]) Attender: Marc Ambrocio MD 10/19/2020 12:00:00 AM EDT [facility] ([facility]) Outpatient Attender: Leslie Moreau ttender: LESLIE TREVINOReferrer: AILYN KOTHARI [id number] 10/13/2020 12:00:00 AM EDT - 01/03/2021 05:46:41 PM T [facility] OFFICE OUTPATIENT VISIT 15 MINUTES Attender: JADIEL ZEPEDA Physical Therapy 10/07/2020 01:45:00 PM EDT [facility] ([facility]) Extended Individual Psychotherapy - 45 min Attender: Brittni Jackson [facility] 09/29/2020 03:00:00 AM EDT - 09/29/2020 03:00:00 AM EDT [facility] ([facility]) Attender: Brittni Jackson 09/29/2020 12:00:00 AM EDT [facility] ([facility]) Nate Freire MD: [address] [place] [address], Ph. Attender: Nate Freire MD [facility] Medical 09/28/2020 12:00:00 AM EDT [facility] ([facility]) Nate Freire MD: [address] [place] [address], Ph. Attender: Nate Freire MD [facility] Medical 09/28/2020 12:00:00 AM EDT [facility] ([facility]) Nate Freire MD: [address] [place] [address], Ph. Attender: Nate Freire MD [facility] Medical 09/28/2020 12:00:00 AM EDT [facility] ([facility]) Nate Freire MD: [address] [place] [address], Ph. Attender: Nate Freire MD [facility] Medical 09/28/2020 12:00:00 AM EDT [facility] ([facility]) Nate Freire MD: [address] [place] [address], Ph. Attender: Nate Freire MD [facility] Medical 09/28/2020 12:00:00 AM EDT [facility] ([facility]) Nate Freire MD: [address] [place] [address], Ph. Attender: Nate Freire MD [facility] Medical 09/28/2020 12:00:00 AM EDT [facility] ([facility]) Nate Freire MD: [address] [place] [address], Ph. Attender: Nate Freire MD [facility] Medical 09/28/2020 12:00:00 AM EDT [facility] ([facility]) Nate Freire MD: [address] [place] [address], Ph. Attender: Nate Freire MD [facility] Medical 09/28/2020 12:00:00 AM EDT [facility] ([facility]) Nate Freire MD: [address], [place] [address], Ph. Attender: Nate Freire MD [facility] Medical 09/28/2020 12:00:00 AM EDT [facility] ([facility]) Ailyn Kothari MD: [address], [place] [address], Ph. Attender: Ailyn Kothari [facility] Medical 09/27/2020 12:00:00 AM EDT [facility] ([facility]) Ailyn Kothari MD: [address], [place] [address], Ph. Attender: Ailyn Kothari [facility] Medical 09/27/2020 12:00:00 AM EDT [facility] ([facility]) Ailyn Kothrai MD: [address], [place] [address], Ph. Attender: Ailyn Kothari [facility] Medical 09/27/2020 12:00:00 AM EDT [facility] ([facility]) Ailyn Kothari MD: [address], [place] [address], Ph. Attender: Ailyn Kothari [facility] Medical 09/27/2020 12:00:00 AM EDT [facility] ([facility]) Ailyn Kothari MD: [address], [place] [address], Ph. Attender: Ailyn Kothari [facility] Medical 09/27/2020 12:00:00 AM EDT [facility] ([facility]) Ailyn Kothari MD: [address], [place] [address], Ph. Attender: Ailyn Kothari [facility] Medical 09/27/2020 12:00:00 AM EDT [facility] ([facility]) Ailyn Kothari MD: [address], [place] [address], Ph. Attender: Ailyn Kothari [facility] Medical 09/27/2020 12:00:00 AM EDT [facility] ([facility]) Ailyn Kothari MD: [address], [place] [address], Ph. Attender: Ailyn Kothari [facility] Medical 09/27/2020 12:00:00 AM EDT [facility] ([facility]) Ailyn Kothari MD: [address], [place] [address], Ph. Attender: Ailyn Kothari [facility] Medical 09/27/2020 12:00:00 AM EDT [facility] ([facility]) Ailyn Kothari MD: [address], [place] [address], Ph. Attender: Ailyn Kothari [facility] Medical 09/27/2020 12:00:00 AM EDT [facility] ([facility]) Outpatient Attender: HANS Belcher/Talon/Jono/ Rodríguez 09/23/2020 11:15:00 AM EDT [facility] ([facility]) Ailyn Kothari MD: [address], [place] [address], Ph. Attender: Ailyn Kothari [facility] Medical 09/22/2020 12:00:00 AM EDT [facility] ([facility]) Nate Freire MD: [address] [place] [address], Ph. Attender: Nate Freire MD [facility] Medical 09/22/2020 12:00:00 AM EDT [facility] ([facility]) Ailyn Kothari MD: [address] , [place] [address], Ph. Attender: Ailyn Kothari [facility] Medical 09/22/2020 12:00:00 AM EDT [facility] ([facility]) Nate Freire MD: [address] [place] [address], Ph. Attender: Nate Freire MD [facility] Medical 09/22/2020 12:00:00 AM EDT [facility] ([facility]) Ailyn Kothari MD: [address] , [place] [address], Ph. Attender: Ailyn Kothari [facility] Medical 09/22/2020 12:00:00 AM EDT [facility] ([facility]) Nate Freire MD: [address] [place] [address], Ph. Attender: Nate Freire MD [facility] Medical 09/22/2020 12:00:00 AM EDT [facility] ([facility]) Ailyn Kothari MD: [address], [facility] [place] [address], Ph. Attender: Ailyn Kothari [facility] Medical 09/22/2020 12:00:00 AM EDT [facility] ([facility]) Nate Freire MD: [address], [place] [address], Ph. Attender: Nate Freire MD [facility] Medical 09/22/2020 12:00:00 AM EDT [facility] ([facility]) Ailyn Kothari MD: [address], [place] [address], Ph. Attender: Ailyn Kothari [facility] Medical 09/22/2020 12:00:00 AM EDT [facility] ([facility]) Nate Freire MD: [address], [place] [address], Ph. Attender: Nate Freire MD [facility] Medical 09/22/2020 12:00:00 AM EDT [facility] ([facility]) Ailyn Kothari MD: [address], [place] [address], Ph. Attender: Ailyn Kothari [facility] Medical 09/22/2020 12:00:00 AM EDT [facility] ([facility]) Ailyn Kothari MD: [address], [place] [address], Ph. Attender: Ailyn Kothari [facility] Medical 09/22/2020 12:00:00 AM EDT [facility] ([facility]) Nate Freire MD: [address], [place] [address], Ph. Attender: Nate Freire MD [facility] Medical 09/22/2020 12:00:00 AM EDT [facility] ([facility]) Ailyn Kothari MD: [address], [place] [address], Ph. Attender: Ailyn Kothari [facility] Medical 09/22/2020 12:00:00 AM EDT [facility] ([facility]) Nate Freire MD: [address] [place] [address], Ph. Attender: Nate Freire MD [facility] Medical 09/22/2020 12:00:00 AM EDT [facility] ([facility]) Ailyn Kothari MD: [address] , [place] [place] [address], Ph. Attender: Ailyn Kothari [facility] 09/22/2020 12:00:00 AM EDT T[facility] ([facility]) Nate Freire MD: [address] [place] [address], Ph. Attender: Nate Freire MD [facility] Medical 09/22/2020 12:00:00 AM EDT TONE[facility] ([facility]) Ailyn Kothari MD: [address], [place] [address], Ph. Attender: Ailyn Kothari [facility] 09/22/2020 12:00:00 AM EDT [facility] ([facility]) Nate Freire MD: [address] [place] [address], Ph. Attender: Nate Freire MD [facility] Medical 09/22/2020 12:00:00 AM EDT [facility] ([facility]) Ailyn Kothari MD: [address], [place] [address], Ph. Attender: Ailyn Kothari [facility] 09/22/2020 12:00:00 AM EDT [facility] ([facility]) Nate Freire MD: [address] [place] [address], Ph. Attender: Nate Freire MD [facility] Medical 09/22/2020 12:00:00 AM EDT [facility] ([facility]) Outpatient Attender: Marc Ambrocio MD [facility] Giuseppe veloz 09/21/2020 10:00:00 AM EDT - 09/21/2020 10:00:00 AM EDT Acc[facility] ([facility]) Attender: Marc Ambrocio MD 09/21/2020 12:00:00 AM EDT Accumedic ([facility]) Outpatient Attender: DAQUAN PEREYRA [facility] 09/07 02:30:00 PM EDT MEDENT ([facility] Outpatient Attender: Marc Ambrocio MD [facility] Giuseppe l 09/14/2020 08:30:00 AM EDT - 09/14/2020 08:30:00 AM EDT [facility] ([facility]) Attender: Marc Ambrocio MD 09/14/2020 12:00:00 AM EDT Acc[facility] ([facility]) Extended Individual Psychotherapy - 45 min Attender: Brittni Jackson [facility] Rox 09/01/2020 03:00:00 AM EDT - 09/01/2020 03:00:00 AM EDT [facility]umed[facility] ([facility]) Ailyn Kothari MD: [address] , [place] [address], Ph. Attender: Ailyn Kothari [facility] - [facility] Medical 09/01/2020 12:00:00 AM EDT [facility] ([facility]) Ailyn Kothari MD: [address], [place] [address], Ph. Attender: Ailyn Kothari [facility] - [facility] 09/01/2020 12:00:00 AM EDT [facility] ([facility]) Ailyn Kothari MD: [address], [place] [address], Ph. Attender: Ailyn Kothari [facility] 09/01/2020 12:00:00 AM EDT [facility] ([facility]) Ailyn Kothari MD: [address], [place] [address], Ph. Attender: Ailyn Kothari [facility] 09/01/2020 12:00:00 AM EDT [facility] ([facility]) Ailyn Kothari MD: [address], [place] [address], Ph. Attender: Ailyn Kothari [facility] 09/01/2020 12:00:00 AM EDT [facility] ([facility]) Ailyn Kothari MD: [address], [place] [address], Ph. Attender: Ailyn Kothari [facility] 09/01/2020 12:00:00 AM EDT [facility] ([facility]) Ailyn Kothari MD: [address], [place] [address], Ph. Attender: Ailyn Kothari [facility] 09/01/2020 12:00:00 AM EDT TONE[facility] ([facility]) Ailyn Kothari MD: [address], [place] [address], Ph. Attender: Ailyn Kothari [facility] 09/01/2020 12:00:00 AM EDT TONE[facility] ([facility]) Ailyn Kothari MD: [address], [place] [address], Ph. Attender: Ailyn Kothari [facility] 09/01/2020 12:00:00 AM EDT [facility] ([facility]) Ailyn Kothari MD: [address], [place] [address], Ph. Attender: Ailyn Kothari [facility] 09/01/2020 12:00:00 AM EDT [facility] ([facility]) Ailyn Kothari MD: [address], [place] [address], Ph. Attender: Ailyn Kothari [facility] 09/01/2020 12:00:00 AM EDT [facility] ([facility]) Ailyn Kothari MD: [address], [place] [address], Ph. Attender: Ailyn Kothari [facility] 09/01/2020 12:00:00 AM EDT [place] ([facility]) Ailyn Kothari MD: [address], [place] [address], Ph. Attender: Ailyn Kothari [facility] 09/01/2020 12:00:00 AM EDT [facility] ([facility]) Ailyn Kothari MD: [address], [place] [address], Ph. Attender: Ailyn Kothari [facility] 09/01/2020 12:00:00 AM EDT [facility] ([facility]) Ailyn Kothari MD: [address], [place] [address], Ph. Attender: Ailyn Kothari [facility] Medical 09/01/2020 12:00:00 AM EDT [facility] ([facility]) Attender: Brittni Manuel 09/01/2020 12:00:00 AM EDT [facility] ([facility]) Ailyn Kothari MD: [address], [place] [address], Ph. Attender: Ailyn Kothari [facility] 09/01/2020 12:00:00 AM EDT [facility] ([facility]) Ailyn Kothari MD: [address], [place] [address], Ph. Attender: Ailyn Kothari [facility] 09/01/2020 12:00:00 AM EDT [facility] ([facility]) Ailyn Kothari MD: [address], [place] [address], Ph. Attender: Ailyn Kothari [facility] 09/01/2020 12:00:00 AM EDT [facility] ([facility]) Ailyn Kothari MD: [address], [place] [address], Ph. Attender: Ailyn Kothari [facility] Medical 09/01/2020 12:00:00 AM EDT [facility] ([facility]) Ailyn Kothari MD: [address], [place] [address], Ph. Attender: Ailyn Kothari [facility] 09/01/2020 12:00:00 AM EDT [facility] ([facility]) Ailyn Kothari MD: [address], [place] [address], Ph. Attender: Ailyn Kothari [facility] 09/01/2020 12:00:00 AM EDT [place] ([facility]) Ailyn Kothari MD: [address], [place] [address], Ph. Attender: Ailyn Kothari [facility] 09/01/2020 12:00:00 AM EDT [place] ([facility]) Ailyn Kothari MD: [address], [place] [address], Ph. Attender: Ailyn Kothari [facility] 09/01/2020 12:00:00 AM EDT [place] ([facility]) Ailyn Kothari MD: [address], [place] [address], Ph. Attender: Ailyn Kothari [facility] 09/01/2020 12:00:00 AM EDT [place] ([facility]) Ailyn Kothari MD: [address], [place] [address], Ph. Attender: Ailyn Kothari [facility] 09/01/2020 12:00:00 AM EDT [place] ([facility]) Office Visit Attender: DAQUAN PEREYRA [facility] Office 10/2020 02:30:00 PM EDT MEDTEDDY ([facility] Outpatient Attender: JADIEL ZEPEDA Physical Therapy 08/11/2020 10:00:00 AM EDT MEDTEDDY ([facility]) Outpatient Attender: Henok Burrell MD Physical Therapy 10:30:00 AM EDT MEDENT ([facility]) Ailyn Kothari MD: [address], [place] [address], Ph. Attender: Ailyn Kothari [facility] 07/28/2020 12:00:00 AM EDT [facility] ([facility]) Ailyn Kothari MD: [address], [place] [address], Ph. Attender: Ailyn Kothari [facility] 07/28/2020 12:00:00 AM EDT [facility] ([facility]) Ailyn Kothari MD: [address], [place] [address], Ph. Attender: Ailyn Kothari [facility] 07/28/2020 12:00:00 AM EDT [facility] ([facility]) Ailyn Kothari MD: [address], [place] [address], Ph. Attender: Ailyn Kothari [facility] 07/28/2020 12:00:00 AM EDT [facility] ([facility]) Ailyn Kothari MD: [address], [place] [address], Ph. Attender: Ailyn Kothari [facility] 07/28/2020 12:00:00 AM EDT [facility] ([facility]) Ailyn Kothari MD: [address], [place] [address], Ph. Attender: Ailyn Kothari [facility] 07/28/2020 12:00:00 AM EDT [facility] ([facility]) Ailyn Kothari MD: [address], [place] [address], Ph. Attender: Ailyn Kothari [facility] 07/28/2020 12:00:00 AM EDT [facility] ([facility]) Ailyn Kothari MD: [address], [place] [address], Ph. Attender: Ailyn Kothari [facility] 07/28/2020 12:00:00 AM EDT [facility] ([facility]) Ailyn Kothari MD: [address], [place] [address], Ph. Attender: Ailyn Kothari [facility] 07/28/2020 12:00:00 AM EDT [facility] ([facility]) Ailyn Kothari MD: [address], [place] [address], Ph. Attender: Ailyn Kothari [facility] 07/28/2020 12:00:00 AM EDT [facility] ([facility]) Ailyn Kothari MD: [address], [place] [address], Ph. Attender: Ailyn Kothari [facility] 07/28/2020 12:00:00 AM EDT [facility] ([facility]) Ailyn Kothari MD: [address], [place] [address], Ph. Attender: Ailyn Kothari [facility] 07/28/2020 12:00:00 AM EDT [facility] ([facility]) Ailyn Kothari MD: [address], [place] [address], Ph. Attender: Ailyn Kothari [facility] 07/28/2020 12:00:00 AM EDT [facility] ([facility]) Ailyn Kothari MD: [address] [place] [address], Ph. Attender: Ailyn Kothari [facility] 07/28/2020 12:00:00 AM EDT [facility] ([facility]) Attender: Brittni Jackson 07/22/2020 12:00:00 AM EDT [facility] ([facility]) Extended Individual Psychotherapy - 45 min Attender: Brittni Jackson [facility] 07/21/2020 03:00:00 AM EDT - 07/21/2020 03:00:00 AM EDT [facility] ([facility]) Outpatient Attender: [facility] 08:30:00 AM EDT - 07/20/2020 08:30:00 AM EDT [facility] ([facility]) Attender: Marc Ambrocio MD 07/20/2020 12:00:00 AM EDT [facility]umed[facility] ([facility]) Outpatient Attender: Gopal Belcher/Talon/Jono/Radha stewart 07/07/2020 07:30:00 AM EDT MEDENT ([facility]) Attender: Brittni Jackson 07/01/2020 12:00:00 AM EDT [facility] ([facility]) Extended Individual Psychotherapy - 45 min Attender: Brittni Jackson [facility] 06/30/2020 01:00:00 AM EDT - 06/30/2020 01:00:00 AM EDT [facility] ([facility]) Nate Freire MD: [address] [place] [address], Ph. Attender: Nate Freire MD [facility] Medical 06/30/2020 12:00:00 AM EDT T[facility] ([facility]) Nate Freire MD: [address] [place] [address], Ph. Attender: Nate Freire MD [facility] Medical 06/30/2020 12:00:00 AM EDT [facility] ([facility]) Nate Freire MD: [address] [place] [address], Ph. Attender: Nate Freire MD [facility] Medical 06/30/2020 12:00:00 AM EDT [facility] ([facility]) Nate Freire MD: [address] [place] [address], Ph. Attender: Nate Freire MD [facility] Medical 06/30/2020 12:00:00 AM EDT [facility] ([facility]) Nate Freire MD: [address] [place] [address], Ph. Attender: Nate Freire MD [facility] Medical 06/30/2020 12:00:00 AM EDT [facility] ([facility]) Nate Freire MD: [address] [place] [address], Ph. Attender: Nate Freire MD [facility] Medical 06/30/2020 12:00:00 AM EDT [facility] ([facility]) Nate Freire MD: [address] [place] [address], Ph. Attender: Nate Freire MD [facility] Medical 06/30/2020 12:00:00 AM EDT [facility] ([facility]) Nate Freire MD: [address] [place] [address], Ph. Attender: Nate Freire MD [facility] Medical 06/30/2020 12:00:00 AM EDT [facility] ([facility]) Nate Freire MD: [address] [place] [address], Ph. Attender: Nate Freire MD [facility] Medical 06/30/2020 12:00:00 AM EDT [facility] ([facility]) Nate Freire MD: [address] [place] [address], Ph. Attender: Nate Freire MD [facility] Medical 06/30/2020 12:00:00 AM EDT T[facility] ([facility]) Nate Freire MD: [address] [place] [address], Ph. Attender: Nate Freire MD [facility] Medical 06/30/2020 12:00:00 AM EDT [facility] ([facility]) Nate Freire MD: [address] [place] [address], Ph. Attender: Nate Freire MD [facility] Medical 06/30/2020 12:00:00 AM EDT [facility] ([facility]) Nate Freire MD: [address] [place] [address], Ph. Attender: Nate Freire MD [facility] Medical 06/30/2020 12:00:00 AM EDT [facility] ([facility]) Nate Freire MD: [address] [place] [address], Ph. Attender: Nate Freire MD [facility] Medical 06/30/2020 12:00:00 AM EDT [facility] ([facility]) Nate Freire MD: [address] [place] [address], Ph. Attender: Nate Freire MD [facility] Medical 06/30/2020 12:00:00 AM EDT [facility] ([facility]) Office Visit Attender: Gopal Belcher/Talon/Jono/Rein dl 06/23/2020 07:30:00 AM EDT MEDTEDDY ([facility] ) Cher Fajardo PA-C: [address], [facility] [place] [address], Ph. Attender: Cher ZEPEDA [facility] Medical 06/23/2020 12:00:00 AM EDT [place] ([facility]) Cher Fajardo PA-C: [address], [facility] [address], Ph. Attender: Cher ZEPEDA [facility] Medical 06/23/2020 12:00:00 AM EDT [place] ([facility]) Cher Fajardo PA-C: [address], [place] [address], Ph. Attender: Cher ZEPEDA [facility] Medical 06/23/2020 12:00:00 AM EDT [place] ([facility]) Cher Fajardo PA-C: [address], [place] [address], Ph. Attender: Cher ZEPEDA [facility] Medical 06/23/2020 12:00:00 AM EDT [place] ([facility]) Cher Fajardo PA-C: [address], [place] [address], Ph. Attender: Cher ZEPEDA [facility] Medical 06/23/2020 12:00:00 AM EDT [facility] ([facility]) Cher Fajardo PA-C: [address], [place] [address], Ph. Attender: Cher ZEPEDA [facility] Medical 06/23/2020 12:00:00 AM EDT [facility] ([facility]) Cher Fajardo PA-C: [address], [place] [address], Ph. Attender: Cher ZEPEDA [facility] Medical 06/23/2020 12:00:00 AM EDT [facility] ([facility]) Cher Fajardo PA-C: [address], [place] [address], Ph. Attender: Cher ZEPEDA [facility] Medical 06/23/2020 12:00:00 AM EDT [place] ([facility]) Cher Fajardo PA-C: [address], [place] [address], Ph. Attender: Cher ZEPEDA [facility] Medical 06/23/2020 12:00:00 AM EDT [facility] ([facility]) Cher Fajardo PA-C: [address], [place] [address], Ph. Attender: Cher ZEPEDA [facility] Medical 06/23/2020 12:00:00 AM EDT [facility] ([facility]) Cher Fajardo PA-C: [address], [place] [address], Ph. Attender: Cher ZEPEDA [facility] Medical 06/23/2020 12:00:00 AM EDT [facility] ([facility]) Cher Fajardo PA-C: [address], [place] [address], Ph. Attender: Cher ZEPEDA [facility] Medical 06/23/2020 12:00:00 AM EDT [place] ([facility]) Cher Fajardo PA-C: [address], [place] [address], Ph. Attender: Cher ZEPEDA [facility] Medical 06/23/2020 12:00:00 AM EDT [place] ([facility]) Cher Fajardo PA-C: [address], [place] [address], Ph. Attender: Cher ZEPEDA [facility] Medical 06/23/2020 12:00:00 AM EDT [place] ([facility]) Cher Fajardo PA-C: [address], [place] [address], Ph. Attender: Cher ZEPEDA [facility] Medical 06/23/2020 12:00:00 AM EDT [place] ([facility]) Cher Fajardo PA-C: [address], [place] [address], Ph. Attender: Cher ZEPEDA [facility] Medical 06/23/2020 12:00:00 AM EDT [place] ([facility]) Outpatient Attender: Marc Ambrocio MD [facility] 06/22/2020 08:30:00 AM EDT - 06/22/2020 08:30:00 AM EDT [facility] ([facility]) Attender: Marc Ambrocio MD 06/22/2020 12:00:00 AM EDT [facility] ([facility]) Office Visit Attender: Henok Belcher/Talon/Jono/Iliana leel 06/16/2020 10:30:00 AM EST MEDENT ([facility]) Unknown [address] [facility] [address] 06/15/2020 12:00:00 AM EST eCW1 ([facility]) Attender: Brittni Jackson 06/04/2020 12:00:00 AM EST [facility] ([facility]) Extended Individual Psychotherapy - 45 min Attender: Brittni Jackson [facility] 06/02/2020 02:00:00 AM EST - 06/02/2020 02:00:00 AM EST [facility] ([facility]) Outpatient Attender: Marc Ambrocio MD [facility] 05/25/2020 08:30:00 AM EST - 05/25/2020 08:30:00 AM EST [facility] ([facility]) Attender: Marc Ambrocio MD 05/25/2020 12:00:00 AM EST [facility] ([facility]) Attender: Brittni Jackson 05/21/2020 12:00:00 AM EST [facility] ([facility]) Extended Individual Psychotherapy - 45 min Attender: Brittni Jackson [facility] 05/19/2020 02:00:00 AM EST - 05/19/2020 02:00:00 AM EST [facility] ([facility]) Attender: Brittni Jackson 05/14/2020 12:00:00 AM EST [facility] ([facility]) TEMPMHCTelemed 30" Psychotherapy Attender: Brittni Jackson [facility] 05/12/2020 02:00:00 AM EST - 05/12/2020 02:00:00 AM EST [facility] ([facility]) Attender: Brittni Jackson 05/07/2020 12:00:00 AM EST [facility] ([facility]) [id number]"Psychotherapy Attender: [facility]ni [facility] 05/05/2020 01:00:00 AM EST - 05/05/2020 01:00:00 AM EST [facility] ([facility]) Attender: Brittni Jackson 04/28/2020 12:00:00 AM EST [facility] ([facility]) Outpatient Attender: Marc Ambrocio MD [facility] Giuseppe veloz 04/27/2020 08:30:00 AM EST - 04/27/2020 08:30:00 AM EST [facility] ([facility]) Brief Individual Psychotherapy - 30 min Attender: Brittni varela [facility] 04/27/2020 02:30:00 AM EST - 04/27/2020 02:30:00 AM EST [facility] ([facility]) Attender: Marc Ambrocio MD 04/27/2020 12:00:00 AM EST [facility] ([facility]) Attender: Brittni Jackson 04/14/2020 12:00:00 AM EST [facility] ([facility]) [id number]"Psychotherapy Attender: Brittni Jackson [facility] 04/13/2020 02:00:00 AM EST - 04/13/2020 02:00:00 AM EST [facility] ([facility]) Outpatient Attender: DAQUAN PEREYRA [facility] Office 07/2020 08:45:00 AM EST MED[facility] ([facility] Extended Individual Psychotherapy - 45 min Attender: Brittni Jackson [facility] 03/30/2020 09:00:00 AM EST - 03/30/2020 09:00:00 AM EST [facility] ([facility]) Attender: Brittni Jackson 03/30/2020 12:00:00 AM EST [facility] ([facility]) Unknown [address] [facility] [place] [address] 03/29/2020 12:00:00 AM EST eCW1 ([facility]) Unknown [address] [facility] [place] [address] 03/17/2020 12:00:00 AM EST eCW1 ([facility]) TEMPMHCTelemed 30" Psychotherapy Attender: [facility] 03/16/2020 01:00:00 AM EST - 03/16/2020 01:00:00 AM EST [facility] ([facility]) Attender: Brittni Jackson 03/16/2020 12:00:00 AM EST [facility] ([facility]) [place] [address] [address] 03/15/2020 12:00:00 AM EST eCW1 ([facility]) Outpatient Attender: ZAHEER SWEETCORDELIA [facility] 03/02/2020 01:00:00 AM EST - 03/02/2020 01:00:00 AM EST [facility] ([facility]) Attender: ZAHEER SWEETCORDELIA 03/02/2020 12:00: 00 AM EST [facility] ([facility]) Outpatient Attender: DAQUAN PEREYRA [facility] Office 02/07 08:45:00 AM EST [facility] ([facility] [place] [address] [facility] [address] 02/23/2020 12:00:00 AM EST eCW1 ([facility]) Extended Individual Psychotherapy - 45 min Attender: Brittni Jackson [facility] 02/17/2020 09:00:00 AM EST - 02/17/2020 09:00:00 AM EST [facility] ([facility]) [place] [address] [facility] [address] 02/17/2020 12:00:00 AM EST eCW1 ([facility]) Attender: Brittni Jackson 02/17/2020 12:00:00 AM EST [facility] ([facility]) [place] [address] [facility] [address] 02/04/2020 12:00:00 AM EDT eCW1 ([facility]) Outpatient Attender: DAQUAN PEREYRA [facility] Office 01/08 09:45:00 AM EDT MEDENT ([facility] Extended Individual Psychotherapy - 45 min Attender: Brittni Manuel [facility] 02/03/2020 09:00:00 AM EDT - 02/03/2020 09:00:00 AM EDT [facility]umed[facility] ([facility]) [place] [address] [facility] [address] 02/03/2020 12:00:00 AM EDT eCW1 ([facility]) Attender: Brittin Jackson 02/03/2020 12:00:00 AM EDT [facility] ([facility]) [place] [address] [facility] [address] 02/02/2020 12:00:00 AM EDT eCW1 ([facility]) [place] [address] [facility] [address] 01/27/2020 12:00:00 AM EDT eCW1 ([facility] [facility] [place] [address] [address] 01/22/2020 12:00:00 AM EDT eCW1 ([facility]) Unknown [address] [address] 01/21/2020 12:00:00 AM EDT eCW1 ([facility]) Outpatient Attender: DAQUAN PEREYRA [facility] Office 01/07 02:45:00 PM EDT MED[facility] ([facility] Extended Individual Psychotherapy - 45 min Attender: Brittni Jackson [facility] 01/20/2020 09:00:00 AM EDT - 01/20/2020 09:00:00 AM EDT [facility] ([facility]) Attender: Brittni Jackson 01/20/2020 12:00:00 AM EDT [facility] ([facility]) Unknown [address] [address] 01/16/2020 12:00:00 AM EDT eCW1 ([facility]) Outpatient Attender: JADIEL ZEPEDA Physical Therapy 01/15/2020 03:00:00 PM EDT MEDENT ([facility]) Outpatient Attender: ZAHEER SWEETCORDELIA [facility] J ail 01/13/2020 09:00:00 AM EDT - 01/13/2020 09:00:00 AM EDT [facility] ([facility]) Attender: ZAHEER SWEETCORDELIA 01/13/2020 12:00: 00 AM EDT [facility] ([facility]) Extended Individual Psychotherapy - 45 min Att[facility]: [facility] 01/06/2020 09:00:00 AM EDT - 01/06/2020 09:00:00 AM EDT [facility] ([facility]) Attender: Brittni Jackson 01/06/2020 12:00:00 AM EDT [facility] ([facility]) Functional Status Immunizations Vaccine Date Status Description Data Source(s) pneumococcal polysaccharide PPV23 11/24/2020 10:34:00 AM EDT com pleted 10.5 mL [facility]ONE[facility] ([facility]) pneumococcal polysaccharide PPV23 11/24/2020 10:34:00 AM EDT com pleted 10.5 mL [facility]ONE[facility] ([facility]) pneumococcal polysaccharide PPV23 11/24/2020 10:34:00 AM EDT com pleted 10.5 mL [facility]ONE[facility] ([facility]) Tdap 11/24/2020 10:33:00 AM EDT completed 11/24/2020 0.5 mL TONEY ([facility]) Tdap 11/24/2020 10:33:00 AM EDT completed 11/24/2020 0.5 mL [facility] ([facility]) Tdap 11/24/2020 10:33:00 AM EDT completed 11/24/2020 0.5 mL [facility]) COVID-19, mRNA, LNP-S, PF, 100 mcg/0.5 mL dose 09/28/2020 04 :13:19 PM EDT completed .5 mL [facility]) COVID-19, mRNA, LNP-S, PF, 100 mcg/0.5 mL dose 09/28/2020 04 :13:19 PM EDT completed .5 mL [facility]) COVID-19, mRNA, LNP-S, PF, 100 mcg/0.5 mL dose 09/28/2020 04 :13:19 PM EDT completed .5 mL [facility]) COVID-19, mRNA, LNP-S, PF, 100 mcg/0.5 mL dose 09/28/2020 04 :13:19 PM EDT completed .5 mL [facility]) COVID-19, mRNA, LNP-S, PF, 100 mcg/0.5 mL dose 09/28/2020 04 :13:19 PM EDT completed .5 mL [facility]) COVID-19, mRNA, LNP-S, PF, 100 mcg/0.5 mL dose 09/28/2020 04 :13:19 PM EDT completed .5 mL [facility]) COVID-19, mRNA, LNP-S, PF, 100 mcg/0.5 mL dose 09/28/2020 04 :13:19 PM EDT completed .5 mL [facility]) COVID-19, mRNA, LNP-S, PF, 100 mcg/0.5 mL dose 09/28/2020 04 :13:19 PM EDT completed .5 mL [facility]) COVID-19, mRNA, LNP-S, PF, 100 mcg/0.5 mL dose 09/28/2020 04 :13:19 PM EDT completed .5 mL [facility]) COVID-19 VACCINE Moderna 09/28/2020 12:00:00 AM EDT completed [facility] Vaccine Series Complete: YESThis Data wa s Submitted to [facility] Via Prec[employer]. COVID-19, mRNA, LNP-S, PF, 100 mcg/0.5 mL dose 09/01/2020 01 :33:02 PM EDT completed .5 mL [place] ([facility]) COVID-19, mRNA, LNP-S, PF, 100 mcg/0.5 mL dose 09/01/2020 01 :33:02 PM EDT completed .5 mL [place] ([facility]) COVID-19, mRNA, LNP-S, PF, 100 mcg/0.5 mL dose 09/01/2020 01 :33:02 PM EDT completed .5 mL [place] ([facility]) COVID-19, mRNA, LNP-S, PF, 100 mcg/0.5 mL dose 09/01/2020 01 :33:02 PM EDT completed .5 mL [place] ([facility]) COVID-19, mRNA, LNP-S, PF, 100 mcg/0.5 mL dose 09/01/2020 01 :33:02 PM EDT completed .5 mL [place] ([facility]) COVID-19, mRNA, LNP-S, PF, 100 mcg/0.5 mL dose 09/01/2020 01 :33:02 PM EDT completed .5 mL [place] ([facility]) COVID-19, mRNA, LNP-S, PF, 100 mcg/0.5 mL dose 09/01/2020 01 :33:02 PM EDT completed .5 mL [place] ([facility]) COVID-19, mRNA, LNP-S, PF, 100 mcg/0.5 mL dose 09/01/2020 01 :33:02 PM EDT completed .5 mL [facility]) COVID-19, mRNA, LNP-S, PF, 100 mcg/0.5 mL dose 09/01/2020 01 :33:02 PM EDT completed 10.5 mL [facility] ([facility]) COVID-19, mRNA, LNP-S, PF, 100 mcg/0.5 mL dose 09/01/2020 01 :33:02 PM EDT completed 10.5 mL [place] ([facility]) COVID-19, mRNA, LNP-S, PF, 100 mcg/0.5 mL dose 09/01/2020 01 :33:02 PM EDT completed 10.5 mL [facility] ([facility]) COVID-19, mRNA, LNP-S, PF, 100 mcg/0.5 mL dose 09/01/2020 01 :33:02 PM EDT completed .5 mL [place] ([facility]) COVID-19 VACCINE Moderna 09/01/2020 12:00:00 AM EDT completed [facility] Vaccine Series Complete: NOThis Data was Submitted to [facility] Via [employer]. Medications Medication Brand Name Start Date Product Form Dose Route Admi nistrative Instructions Pharmacy Instructions Status Indications Reaction Description Data Source(s) Sulfamethoxazole 800 MG / Trimethoprim 160 MG Oral Tablet [B actrim] Bactrim DS 02/23/2021 12:00:00 AM EST ORAL active [facility] ([facility] 4 mg 02/15/2021 12:00:00 AM EST tablets,dose pack 21 TAKE BY MOUTH DIRECTED ON SHEET TAKE BY MOUTH DIRECTED ON SHEET SOLD: 02/17/2021 [facility] 60 mcg (15 mcg x 4)/0.5 mL 01/08/2021 12:00:00 AM EDT suspen andi 0 INJECT INTO LEFT ARM DIRECTED INJECT INTO LEFT ARM DIRECTED SOLD: 01/08/2021 [facility] 24 HR Bupropion Hydrochloride 300 MG Extended Release Oral T ablet BUPROPION HCL 01/07/2021 12:00:00 AM EDT tablet extended release 24 hr 90 TAKE ONE TABLET BY MOUTH EVERY DAY TAKE ONE TABLET BY MOUTH EVERY DAY SOLD: 01/08/2021 [facility] 4.5 mg/0.5 mL 01/06/2021 12:00:00 AM EDT pen injector 6 INJECT 4.5MG UNDER THE SKIN ONCE WEEKLY INJECT 4.5MG UNDER THE SKIN ONCE WEEKLY SOLD: 01/08/2021 [facility] 5 mg 12/24/2020 12:00:00 AM EDT tablet 60 TAKE ONE TABLET BY MOUTH TWICE A DAY BEFORE MEALS TAKE ONE TABLET BY MOUTH TWICE A DAY BEFORE MEALS SOLD : 01/08/2021 [facility] 1.5 mg/0.5 mL 11/08/2020 12:00:00 AM EDT pen injector 2 INJECT ONE PEN UNDER THE SKIN ONCE WEEKLY INJECT ONE PEN UNDER THE SKIN ONCE WEEKLY SOLD: 2020 [facility] 3 ML Insulin Glargine 100 UNT/ML Pen Injector [Basagla r] 100 unit/mL (3 mL) INSULIN GLARGINE,HUM.REC.ANLOG 11/08/2020 12:00:00 AM EDT insulin pen 30 INJECT 75 UNITS UNDER THE SKIN AT BEDTIME MAXIMUM DAILY DOSE = 75 UNITS INJECT 75 UNITS UNDER THE SKIN AT BEDTIME MAXIMUM DAILY DOSE = 75 UNITS SOLD: 11/11/2020 [facility] 3 ML Insulin Glargine 100 UNT/ML Pen Injector [Basagla r] 100 unit/mL (3 mL) INSULIN GLARGINE,HUM.REC.ANLOG 11/08/2020 12:00:00 AM EDT insulin pen 15 INJECT 75 UNITS UNDER THE SKIN AT BEDTIME MAXIMUM DAILY DOSE = 75 UNITS INJECT 75 UNITS UNDER THE SKIN AT BEDTIME MAXIMUM DAILY DOSE = 75 UNITS SOLD: 02/17/2021 [facility] 0.75 mg/0.5 mL 10/29/2020 12:00:00 AM EDT pen injector 2 INJECT ONE PEN UNDER THE SKIN ONCE WEEKLY INJECT ONE PEN UNDER THE SKIN ONCE WEEKLY SOLD: 11/05/2020 [facility] 8 mg 09/22/2020 12:00:00 AM EDT tablet,disintegrating 2 0 DISSOLVE 1 TABLET UNDER THE TONGUE TWO TIMES A DAY DISSOLVE 1 TABLET UNDER THE TONGUE TWO T IMES A DAY SOLD: 09/22/2020 [facility] 1,000 mg 09/22/2020 12:00:00 AM EDT tablet 60 TAKE ONE TABLET BY MOUTH TWICE A DAY WITH MEALS TAKE ONE TABLET BY MOUTH TWICE A DAY WITH MEALS SOLD: 11/05/2020 [facility] 1,000 mg 09/22/2020 12:00:00 AM EDT tablet 60 TAKE ONE TABLET BY MOUTH TWICE A DAY WITH MEALS TAKE ONE TABLET BY MOUTH TWICE A DAY WITH MEALS SOLD: 09/22/2020 [facility] NITROFURANTOIN, MACROCRYSTALS 25 MG / Ni trofurantoin, Monohydrate 75 MG Oral Capsule 100 mg NITROFURANTOIN MONOHYD/M-CRYST 09/20/2020 12:00:00 AM EDT ca psule 14 TAKE ONE CAPSULE BY MOUTH TWICE A DAY TAKE ONE CAPSULE BY MOUTH TWICE A DAY SOLD: 09/20/2020 [facility] 3 mg/0.5 mL 09/02/2020 12:00:00 AM EDT pen injector 2 INJECT UNDER THE SKIN ONCE WEEKLY DIRECTED INJECT UNDER THE SKIN ONCE WEEKLY DIRECTED SOLD: 09/11/2020 [facility] 0.1 % 09/01/2020 12:00:00 AM EDT cream 30 APPLY A THIN LAYER TO AFFECTED AREA(S) TWO TIMES A DAY APPLY A THIN LAYER TO AFFECTED AREA(S) TWO TIMES A DAY SOLD: 09/11/2020 [facility] 100 mg 07/28/2020 12:00:00 AM EDT capsule 60 TAKE ONE CAPSULE BY MOUTH TWICE A DAY TAKE ONE CAPSULE BY MOUTH TWICE A DAY SOLD: 07/29/2020 [facility] 24 HR Bupropion Hydrochloride 300 MG Extended Release Oral T ablet BUPROPION HCL 07/08/2020 12:00:00 AM EDT tablet extended release 24 hr 30 TAKE ONE TABLET BY MOUTH EVERY DAY TAKE ONE TABLET BY MOUTH EVERY DAY SOLD: 09/11/2020 [facility] 24 HR Bupropion Hydrochloride 300 MG Extended Release Oral T ablet BUPROPION HCL 07/08/2020 12:00:00 AM EDT tablet extended release 24 hr 30 TAKE ONE TABLET BY MOUTH EVERY DAY TAKE ONE TABLET BY MOUTH EVERY DAY SOLD: 11/05/2020 [facility] 24 HR Bupropion Hydrochloride 300 MG Extended Release Oral T ablet BUPROPION HCL 07/08/2020 12:00:00 AM EDT tablet extended release 24 hr 30 TAKE ONE TABLET BY MOUTH EVERY DAY TAKE ONE TABLET BY MOUTH EVERY DAY SOLD: 07/09/2020 [facility] Metformin hydrochloride 1000 MG Oral Tablet 1,000 mg METFORM IN HCL 06/23/2020 12:00:00 AM EDT tablet 60 TAKE ONE TABLET BY MOUTH TWICE A DAY WITH MEALS TAKE ONE TABLET BY MOUTH TWICE A DAY WITH MEALS SOLD: 07/09/2020 [facility] 1.5 mg/0.5 mL 06/23/2020 12:00:00 AM EDT pen injector 2 INJECT 1.5MG UNDER THE SKIN ONCE WEEKLY INJECT 1.5MG UNDER THE SKIN ONCE WEEKLY SOLD: 07/09/2020 [facility] 1,000 mg 06/23/2020 12:00:00 AM EDT tablet 60 TAKE ONE TABLET BY MOUTH TWICE A DAY WITH MEALS TAKE ONE TABLET BY MOUTH TWICE A DAY WITH MEALS SOLD: 01/08/2021 [facility] doxycycline hyclate 100 MG Oral Capsule DOXYCYCLINE HYCLATE 06/14/2020 12:00:00 AM EST capsule 14 TAKE ONE CAPSULE BY MOUTH TW ICE A DAY TAKE ONE CAPSULE BY MOUTH TWICE A DAY SOLD: 06/15/2020 [facility] 875-125 mg 06/14/2020 12:00:00 AM EST tablet 14 TAKE ONE TABLET BY MOUTH TWICE A DAY TAKE ONE TABLET BY MOUTH TWICE A DAY SOLD: 06/15/2020 [facility] 150 mg 06/10/2020 12:00:00 AM EST capsule 63 TAKE THREE CAPSULES BY MOUTH THREE TIMES A DAY TAKE THREE CAPSULES BY MOUTH THREE TIMES A DAY SOLD: 06/11/2020 [facility] 24 HR Bupropion Hydrochloride 300 MG Extended Release Oral T ablet bupropion HCl 05/25/2020 12:00:00 AM EST 300 mg by mouth completed <td ID="MedicationRxNorm_1">[id number]</td><td ID="MedicationMedication_1">bupropion HCl</td><td ID="MedicationRoute_1">by mouth</td><td ID="MedicationRouteConcept_1">[id number]</td><td ID="MedicationStartDate_1">05/25/2020</td><td ID="MedicationStopDate_1">03/14/2021</td><td ID="MedicationDosageFrequency_1">once a day</td><td ID="MedicationDuration_1">90</td><td ID="MedicationFormulaStrength_1">300 mg</td><td ID="MedicationDosageForm_1">tablet extended release 24 hr</td><td ID="MedicationDosageFormCode_1"></td><td ID="MedicationDosageDescription_1"></td><td ID="MedicationMedicationId_1">[id number]</td><td ID="MedicationAccount_1">[id number]</td><td ID="MedicationNpid_1">[id number]</td><td ID="MedicationAuthorFirstName_1">Marc</td><td ID="MedicationAuthorLastName_1">Ambrocio</td><td ID="MedicationTaxonomyCode_1">[id number]</td><td ID="MedicationTaxonomyDesc_1"> Psychiatry</td><td ID="MedicationPhoneNumber_1">[phone]</td> [facility] ([facility]) 300 mg 04/23/2020 12:00:00 AM EST tablet extended release 24 hr 30 TAKE ONE TABLET BY MOUTH EVERY MORNING TAKE ONE TABLET BY MOUTH EVERY MORNING SOLD: 04/23/2020 [facility] 5 mg 04/12/2020 12:00:00 AM EST tablet 60 TAKE ONE TABLET BY MOUTH TWICE A DAY BEFORE MEALS TAKE ONE TABLET BY MOUTH TWICE A DAY BEFORE MEALS SOLD : 04/19/2020 [facility] Sulfamethoxazole 800 MG / Trimethoprim 160 MG Oral Tab let 800-160 mg SULFAMETHOXAZOLE/TRIMETHOPRIM 03/12/2020 12:00:00 AM EST tablet 20 TAKE ONE TABLET BY MOUTH EVERY 12 HOURS TAKE ONE TABLET BY MOUTH EVERY 12 HOURS SOLD: 03/12/2020 [facility] Misc. Devices - UNK 03/01/2020 12:00:00 AM EST active Misc. Devices - eCW1 ([facility]) Misc. Devices - UNK 03/01/2020 12:00:00 AM EST active Misc. Devices - eCW1 ([facility]) Misc. Devices - UNK 03/01/2020 12:00:00 AM EST active Misc. Devices - eCW1 ([facility]) Misc. Devices - UNK 03/01/2020 12:00:00 AM EST active Misc. Devices - eCW1 ([facility]) Misc. Devices - UNK 03/01/2020 12:00:00 AM EST active Misc. Devices - eCW1 ([facility]) Misc. Devices - UNK 03/01/2020 12:00:00 AM EST active Misc. Devices - eCW1 ([facility]) 500 mg 01/19/2020 12:00:00 AM EDT tablet 14 TAKE ONE TABLET BY MOUTH TWICE A DAY TAKE ONE TABLET BY MOUTH TWICE A DAY SOLD: 01/19/2020 [facility] Cephalexin 500 MG Oral Capsule CEPHALEXIN 01/16/2020 12:00:00 AM EDT capsule 20 TAKE ONE CAPSULE BY MOUTH TWICE A DAY TAKE ONE CAPSULE BY MO UT TWICE A DAY SOLD: 01/17/2020 [facility] 24 HR Bupropion Hydrochloride 300 MG Extended Release Oral T ablet BUPROPION HCL 01/15/2020 12:00:00 AM EDT tablet extended release 24 hr 30 TAKE ONE TABLET BY MOUTH EVERY DAY TAKE ONE TABLET BY MOUTH EVERY DAY SOLD: 01/27/2020 [facility] 24 HR Bupropion Hydrochloride 300 MG Extended Release Oral T ablet BUPROPION HCL 01/15/2020 12:00:00 AM EDT tablet extended release 24 hr 30 TAKE ONE TABLET BY MOUTH EVERY DAY TAKE ONE TABLET BY MOUTH EVERY DAY SOLD: 03/12/2020 [facility] Cephalexin 500 MG Oral Capsule CEPHALEXIN 12/26/2019 12:00:00 AM EDT capsule 20 TAKE ONE CAPSULE BY MOUTH TWO TIMES A DAY TAKE ONE CAP LORA BY MOUTH TWO TIMES A DAY SOLD: 12/27/2019 [facility] 100 unit/mL (3 mL) 10/24/2019 12:00:00 AM EDT insulin pen 15 INJECT 65 UNITS UNDER THE SKIN AT BEDTIME INJECT 65 UNITS UNDER THE SKIN AT BEDTIME SOLD: 07/09/2020 [facility] 3 ML Insulin Glargine 100 UNT/ML Pen Injector [Basagla r] 100 unit/mL (3 mL) INSULIN GLARGINE,HUM.REC.ANLOG 10/24/2019 12:00:00 AM EDT insulin pen 15 INJECT 65 UNITS UNDER THE SKIN AT BEDTIME INJECT 65 UNITS UNDER THE SKIN AT BEDTIME SOLD: 07/30/2020 [facility] Ranitidine 150 MG Oral Tablet ranitidine 150 mg tablet TAKE ONE TABLET BY MOUTH TWICE A DAY ranitidine 150 mg tablet TAKE ONE TABLET BY MOUTH TWICE A DAY completed ranitidine 150 MG Or al Tablet [place] ([facility]) 0.5 ML dulaglutide 3 MG/ML Auto-Injector [Trulicity] Trulicity 1.5 mg/0.5 mL subcutaneous pen injector Trulicity 1.5 mg/0.5 mL subcutaneous pen injector completed 0.5 ML dulaglutide 3 M G/ML Auto-Injector [Trulicity] [place] ([facility]) Sumatriptan 50 MG Oral Tablet sumatripta n 50 mg tablet TAKE ONE TABLET BY MOUTH TWICE A DAY NEEDED sumatriptan 50 mg tablet TAKE ONE TABLET BY MOUTH TWICE A DAY NEEDED completed sumatrip ernandez 50 MG Oral Tablet [place] ([facility]) Ciprofloxacin 500 MG Oral Tablet ciprofloxacin 500 mg tablet ciprofloxacin 500 mg tablet completed ciprofloxaci n 500 MG Oral Tablet [place] ([facility]) Deblitane 0.35 mg tablet TAKE ONE TABLET BY MOUTH EVERY DAY [id number] completed Deblitane 0.35 mg tablet [place] ([facility]) Amoxicillin 875 MG / Clavulanate 125 MG Oral Tablet amoxicillin 875 mg-potassium clavulanate 125 mg tablet TAKE ONE TABLET BY MOUTH TWICE A DAY amoxicillin 875 mg-potassium clavulanate 125 mg tablet TAKE ONE TABLET BY MOUTH TWICE A DAY completed amoxicillin 875 MG / c lavulanate 125 MG Oral Tablet [place] ([facility]) dapagliflozin 10 MG Oral Tablet [Farxiga ] Farxiga 10 mg tablet TAKE ONE TABLET BY MOUTH EVERY DAY Farxiga 10 mg tablet TAKE ONE TABLET BY MOUTH EVERY DAY completed dapagliflozin 10 MG Or al Tablet [Farxiga] [facility] ([facility]) 24 HR Bupropion Hydrochloride 150 MG Ext ended Release Oral Tablet bupropion HCl XL 150 mg 24 hr tablet, extended release TAKE ONE TABLET BY MOUTH EVERY MORNING WITH 300MG bupropion HCl XL 150 mg 24 hr tablet, ex tended release TAKE ONE TABLET BY MOUTH EVERY MORNING WITH 300MG completed 24 HR bupropion hydrochloride 150 MG Extended Release Oral Tablet [place] ([facility]) Fluconazole 150 MG Oral Tablet fluconazo le 150 mg tablet TAKE 1 TABLET BY MOUTH ONCE fluconazole 150 mg tablet TAKE 1 TABLET BY MOUTH ONCE completed fluconazole 150 MG Oral Tablet [facility] ([facility]) 0.5 ML dulaglutide 1.5 MG/ML Auto-Inject or [Trulicity] [facility]ul[facility] 0.75 mg/0.5 mL subcutaneous pen injector Trulicity 0.75 mg/0.5 mL subcutaneous pen injector completed 0.5 ML dulaglu tide 1.5 MG/ML Auto-Injector [Trulicity] [place] ([facility]) venlafaxine 75 MG Oral Tablet venlafaxin e 75 mg tablet TAKE ONE TABLET BY MOUTH EVERY DAY WITH FOOD venlafaxine 75 mg tablet TAKE ONE TABLET BY MOUTH EVERY DAY WITH FOOD completed venlafaxine 75 MG Oral Tablet [place] ([facility]) Clindamycin 150 MG Oral Capsule clindamy fortino HCl 150 mg capsule TAKE THREE CAPSULES BY MOUTH THREE TIMES A DAY clindamycin HCl 150 mg capsule TAKE THRE E CAPSULES BY MOUTH THREE TIMES A DAY co mpleted clindamycin 150 MG Oral Capsule [place] ([facility]) 0.5 ML dulaglutide 1.5 MG/ML Auto-Inject or [Trulicity] [facility] 0.75 mg/0.5 mL subcutaneous pen injector Trulicity 0.75 mg/0.5 mL subcutaneous pen injector completed 0.5 ML dulaglu tide 1.5 MG/ML Auto-Injector [Trulicity] [place] ([facility]) nitrofurantoin 100 mg tablet Take by oral route. [id number] completed nitrofurantoin 100 mg tablet [place] ([facility]) Clindamycin 150 MG Oral Capsule clindamy fortino HCl 150 mg capsule TAKE THREE CAPSULES BY MOUTH THREE TIMES A DAY clindamycin HCl 150 mg capsule TAKE THRE E CAPSULES BY MOUTH THREE TIMES A DAY co mpleted clindamycin 150 MG Oral Capsule [facility]) Clonidine Hydrochloride 0.1 MG Oral Tabl et clonidine HCl 0.1 mg tablet TAKE ONE TABLET BY MOUTH TWICE A DAY clonidine HCl 0.1 mg tablet TAKE ONE TAB LET BY MOUTH TWICE A DAY completed c lonidine hydrochloride 0.1 MG Oral Tablet [facility] ([facility]) NITROFURANTOIN, MACROCRYSTALS 25 MG / Ni trofurantoin, Monohydrate 75 MG Oral Capsule nitrofurantoin monohydrate/macrocrystals 100 mg capsule TAKE ONE CAPSULE BY MOUTH TWICE A DAY nitrofurantoin monohydrate/macrocrystals 100 mg capsule TAKE ONE CAPSULE BY MOUTH TWICE A DAY completed nitrofurantoin, macrocrystals 25 MG / nitrofurantoin, monohydrate 75 MG Oral Capsule [place] ([facility]) venlafaxine 75 MG Oral Tablet venlafaxin e 75 mg tablet TAKE ONE TABLET BY MOUTH EVERY DAY WITH FOOD venlafaxine 75 mg tablet TAKE ONE TABLET BY MOUTH EVERY DAY WITH FOOD completed venlafaxine 75 MG Oral Tablet [place] ([facility]) dapagliflozin 10 MG Oral Tablet [Farxiga ] Farxiga 10 mg tablet TAKE ONE TABLET BY MOUTH EVERY DAY Farxiga 10 mg tablet TAKE ONE TABLET BY MOUTH EVERY DAY completed dapagliflozin 10 MG Or al Tablet [Farxiga] [facility] ([facility]) 24 HR Bupropion Hydrochloride 450 MG Ext ended Release Oral Tablet bupropion HCl XL 450 mg 24 hr tablet, extended release TAKE ONE TABLET BY MOUTH EVERY MORNING bupropion HCl XL 450 mg 24 hr tablet, extended release TAKE ONE TABLET BY MOUTH EVERY MORNING completed 24 HR bupropion hydrochloride 450 MG Extended Release Oral Tablet [place] ([facility]) Famotidine 20 MG Oral Tablet famotidine 20 mg tablet TAKE ONE TABLET BY MOUTH EVERY DAY AT BEDTIME NEEDED famotidine 20 mg tablet TAKE ONE TABLET BY MOUTH EVERY DAY AT BEDTIME NEEDED complet ed famotidine 20 MG Oral Tablet [facility] ([facility]) Sumatriptan 50 MG Oral Tablet sumatripta n 50 mg tablet TAKE ONE TABLET BY MOUTH TWICE A DAY NEEDED sumatriptan 50 mg tablet TAKE ONE TABLET BY MOUTH TWICE A DAY NEEDED completed sumatrip ernandez 50 MG Oral Tablet [place] ([facility]) Ibuprofen 200 MG Oral Capsule ibuprofen 200 mg capsule Take 1 capsule every 6 hours by oral route. ibuprofen 200 mg capsule Take 1 capsule every 6 hours by oral route. 1 capsule(s) completed ibu profen 200 MG Oral Capsule [facility] ([facility]) Ondansetron 8 MG Disintegrating Oral Tab let ondansetron 8 mg disintegrating tablet DISSOLVE 1 TABLET UNDER THE TONGUE TWO TIMES A DAY ondansetron 8 mg disintegrating tablet DISSOLVE 1 TABLET UNDER THE TONGUE TWO TIMES A DAY completed ondansetron 8 MG Dis integrating Oral Tablet [facility] ([facility]) celecoxib 100 MG Oral Capsule celecoxib 100 mg capsule celec oxib 100 mg capsule completed celecoxib 100 MG Oral Capsule [facility] ([facility]) 24 HR Bupropion Hydrochloride 150 MG Ext ended Release Oral Tablet bupropion HCl XL 150 mg 24 hr tablet, extended release TAKE ONE TABLET BY MOUTH EVERY MORNING WITH 300MG bupropion HCl XL 150 mg 24 hr tablet, ex tended release TAKE ONE TABLET BY MOUTH EVERY MORNING WITH 300MG completed 24 HR bupropion hydrochloride 150 MG Extended Release Oral Tablet [place] ([facility]) doxycycline hyclate 100 MG Oral Capsule doxycycline hyclate 100 mg capsule TAKE ONE CAPSULE BY MOUTH TWICE A DAY doxycycline hyclate 100 mg capsule TAKE ONE CAPSULE BY MOUTH TWICE A DAY completed doxycycline hyclate 100 MG Oral Capsule [facility] ([facility]) 0.5 ML dulaglutide 1.5 MG/ML Auto-Inject or [Trulicity] Trulicity 0.75 mg/0.5 mL subcutaneous pen injector INJECT 0.5ML UNDER THE SKIN ONCE WEEKLY Trulicity 0.75 mg/0.5 mL subcutaneous pen injector INJECT 0.5ML UNDER THE SKIN ONCE WEEKLY completed 0.5 ML dulaglu tide 1.5 MG/ML Auto-Injector [Trulicity] [place] ([facility]) doxycycline hyclate 100 MG Oral Capsule doxycycline hyclate 100 mg capsule TAKE ONE CAPSULE BY MOUTH TWICE A DAY doxycycline hyclate 100 mg capsule TAKE ONE CAPSULE BY MOUTH TWICE A DAY completed doxycycline hyclate 100 MG Oral Capsule [facility] ([facility]) doxycycline hyclate 100 MG Oral Capsule doxycycline hyclate 100 mg capsule TAKE ONE CAPSULE BY MOUTH TWICE A DAY doxycycline hyclate 100 mg capsule TAKE ONE CAPSULE BY MOUTH TWICE A DAY completed doxycycline hyclate 100 MG Oral Capsule [place] ([facility]) Deblitane 0.35 mg tablet TAKE ONE TABLET BY MOUTH EVERY DAY [id number] completed Deblitane 0.35 mg tablet [place] ([facility]) Sucralfate 1000 MG Oral Tablet sucralfat e 1 gram tablet TAKE ONE TABLET BY MOUTH FOUR TIMES A DAY NEEDED sucralfate 1 gram tablet TAKE ONE TABLET BY MOUTH FOUR TIMES A DAY NEEDED completed sucralfate 1000 MG Oral Tablet [place] ([facility]) Fluconazole 150 MG Oral Tablet fluconazo le 150 mg tablet TAKE 1 TABLET BY MOUTH ONCE fluconazole 150 mg tablet TAKE 1 TABLET BY MOUTH ONCE completed fluconazole 150 MG Oral Tablet [facility] ([facility]) 24 HR Bupropion Hydrochloride 450 MG Ext ended Release Oral Tablet bupropion HCl XL 450 mg 24 hr tablet, extended release TAKE ONE TABLET BY MOUTH EVERY MORNING bupropion HCl XL 450 mg 24 hr tablet, extended release TAKE ONE TABLET BY MOUTH EVERY MORNING completed 24 HR bupropion hydrochloride 450 MG Extended Release Oral Tablet [place] ([facility]) Ciprofloxacin 500 MG Oral Tablet ciprofloxacin 500 mg tablet ciprofloxacin 500 mg tablet completed ciprofloxaci n 500 MG Oral Tablet [place] ([facility]) Ciprofloxacin 500 MG Oral Tablet ciprofloxacin 500 mg tablet ciprofloxacin 500 mg tablet completed ciprofloxaci n 500 MG Oral Tablet [place] ([facility]) tramadol hydrochloride 50 MG Oral Tablet tramadol 50 m g tablet tramadol 50 mg tablet completed tramadol hydroc hloride 50 MG Oral Tablet [place] ([facility]) Clonidine Hydrochloride 0.1 MG Oral Tabl et clonidine HCl 0.1 mg tablet TAKE ONE TABLET BY MOUTH TWICE A DAY clonidine HCl 0.1 mg tablet TAKE ONE TAB LET BY MOUTH TWICE A DAY completed c lonidine hydrochloride 0.1 MG Oral Tablet [place] ([facility]) 24 HR Bupropion Hydrochloride 150 MG Ext ended Release Oral Tablet bupropion HCl XL 150 mg 24 hr tablet, extended release TAKE ONE TABLET BY MOUTH EVERY MORNING WITH 300MG bupropion HCl XL 150 mg 24 hr tablet, ex tended release TAKE ONE TABLET BY MOUTH EVERY MORNING WITH 300MG completed 24 HR bupropion hydrochloride 150 MG Extended Release Oral Tablet [place] ([facility]) Cephalexin 500 MG Oral Capsule cephalexin 500 mg capsu le cephalexin 500 mg capsule completed cephalexin 500 MG Oral Capsule [place] ([facility]) Ranitidine 150 MG Oral Tablet ranitidine 150 mg tablet TAKE ONE TABLET BY MOUTH TWICE A DAY ranitidine 150 mg tablet TAKE ONE TABLET BY MOUTH TWICE A DAY completed ranitidine 150 MG Or al Tablet [place] ([facility]) tramadol hydrochloride 50 MG Oral Tablet tramadol 50 m g tablet tramadol 50 mg tablet completed tramadol hydroc hloride 50 MG Oral Tablet [place] ([facility]) Deblitane 0.35 mg tablet TAKE ONE TABLET BY MOUTH EVERY DAY [id number] completed Deblitane 0.35 mg tablet [place] ([facility]) dapagliflozin 10 MG Oral Tablet [Farxiga ] Farxiga 10 mg tablet TAKE ONE TABLET BY MOUTH EVERY DAY Farxiga 10 mg tablet TAKE ONE TABLET BY MOUTH EVERY DAY completed dapagliflozin 10 MG Or al Tablet [Farxiga] [place] ([facility]) Ondansetron 4 MG Oral Tablet ondansetron HCl 4 mg tablet TAKE ONE TABLET BY MOUTH FOUR TIMES A DAY NEEDED ondansetron HCl 4 mg tablet TAKE ONE TAB LET BY MOUTH FOUR TIMES A DAY NEEDED compl eted ondansetron 4 MG Oral Tablet [place] ([facility]) Famotidine 20 MG Oral Tablet famotidine 20 mg tablet TAKE ONE TABLET BY MOUTH EVERY DAY AT BEDTIME NEEDED famotidine 20 mg tablet TAKE ONE TABLET BY MOUTH EVERY DAY AT BEDTIME NEEDED complet ed famotidine 20 MG Oral Tablet [place] ([facility]) Sulfamethoxazole 800 MG / Trimethoprim 1 60 MG Oral Tablet sulfamethoxazole 800 mg-trimethoprim 160 mg tablet TAKE ONE TABLET BY MOUTH EVERY 12 HOURS sulfamethoxazole 800 mg-trimethoprim 160 mg tablet TAKE ONE TABLET BY MOUTH EVERY 12 HOURS completed sulfamethoxazole 800 MG / trimethoprim 160 MG Oral Tablet [place] ([facility]) Cephalexin 500 MG Oral Capsule cephalexin 500 mg capsu le cephalexin 500 mg capsule completed cephalexin 500 MG Oral Capsule [place] ([facility]) Sucralfate 1000 MG Oral Tablet sucralfat e 1 gram tablet TAKE ONE TABLET BY MOUTH FOUR TIMES A DAY NEEDED sucralfate 1 gram tablet TAKE ONE TABLET BY MOUTH FOUR TIMES A DAY NEEDED completed sucralfate 1000 MG Oral Tablet [place] ([facility]) Clonidine Hydrochloride 0.1 MG Oral Tabl et clonidine HCl 0.1 mg tablet TAKE ONE TABLET BY MOUTH TWICE A DAY clonidine HCl 0.1 mg tablet TAKE ONE TAB LET BY MOUTH TWICE A DAY completed c lonidine hydrochloride 0.1 MG Oral Tablet [place] ([facility]) Clindamycin 150 MG Oral Capsule clindamy fortino HCl 150 mg capsule TAKE THREE CAPSULES BY MOUTH THREE TIMES A DAY clindamycin HCl 150 mg capsule TAKE THRE E CAPSULES BY MOUTH THREE TIMES A DAY co mpleted clindamycin 150 MG Oral Capsule [place] ([facility]) Famotidine 20 MG Oral Tablet famotidine 20 mg tablet TAKE ONE TABLET BY MOUTH EVERY DAY AT BEDTIME NEEDED famotidine 20 mg tablet TAKE ONE TABLET BY MOUTH EVERY DAY AT BEDTIME NEEDED complet ed famotidine 20 MG Oral Tablet [place] ([facility]) tramadol hydrochloride 50 MG Oral Tablet tramadol 50 m g tablet tramadol 50 mg tablet completed tramadol hydroc hloride 50 MG Oral Tablet [place] ([facility]) nitrofurantoin 100 mg tablet Take by oral route. [id number] completed nitrofurantoin 100 mg tablet [place] ([facility]) Clindamycin 150 MG Oral Capsule clindamy fortino HCl 150 mg capsule TAKE THREE CAPSULES BY MOUTH THREE TIMES A DAY clindamycin HCl 150 mg capsule TAKE THRE E CAPSULES BY MOUTH THREE TIMES A DAY co mpleted clindamycin 150 MG Oral Capsule [place] ([facility]) Ciprofloxacin 500 MG Oral Tablet ciprofloxacin 500 mg tablet ciprofloxacin 500 mg tablet completed ciprofloxaci n 500 MG Oral Tablet [place] ([facility]) 24 HR Bupropion Hydrochloride 150 MG Ext ended Release Oral Tablet bupropion HCl XL 150 mg 24 hr tablet, extended release TAKE ONE TABLET BY MOUTH EVERY MORNING WITH 300MG bupropion HCl XL 150 mg 24 hr tablet, ex tended release TAKE ONE TABLET BY MOUTH EVERY MORNING WITH 300MG completed 24 HR bupropion hydrochloride 150 MG Extended Release Oral Tablet [place] ([facility]) Fluconazole 150 MG Oral Tablet fluconazo le 150 mg tablet TAKE 1 TABLET BY MOUTH ONCE fluconazole 150 mg tablet TAKE 1 TABLET BY MOUTH ONCE completed fluconazole 150 MG Oral Tablet [place] [facility]RADE ([facility]) venlafaxine 75 MG Oral Tablet venlafaxin e 75 mg tablet TAKE ONE TABLET BY MOUTH EVERY DAY WITH FOOD venlafaxine 75 mg tablet TAKE ONE TABLET BY MOUTH EVERY DAY WITH FOOD completed venlafaxine 75 MG Oral Tablet [place] ([facility]) Sucralfate 1000 MG Oral Tablet sucralfat e 1 gram tablet TAKE ONE TABLET BY MOUTH FOUR TIMES A DAY NEEDED sucralfate 1 gram tablet TAKE ONE TABLET BY MOUTH FOUR TIMES A DAY NEEDED completed sucralfate 1000 MG Oral Tablet [place] ([facility]) Sumatriptan 50 MG Oral Tablet sumatripta n 50 mg tablet TAKE ONE TABLET BY MOUTH TWICE A DAY NEEDED sumatriptan 50 mg tablet TAKE ONE TABLET BY MOUTH TWICE A DAY NEEDED completed sumatrip ernandez 50 MG Oral Tablet [place] ([facility]) Ondansetron 4 MG Oral Tablet ondansetron HCl 4 mg tablet TAKE ONE TABLET BY MOUTH FOUR TIMES A DAY NEEDED ondansetron HCl 4 mg tablet TAKE ONE TAB LET BY MOUTH FOUR TIMES A DAY NEEDED compl eted ondansetron 4 MG Oral Tablet [place] ([facility]) venlafaxine 75 MG Oral Tablet venlafaxin e 75 mg tablet TAKE ONE TABLET BY MOUTH EVERY DAY WITH FOOD venlafaxine 75 mg tablet TAKE ONE TABLET BY MOUTH EVERY DAY WITH FOOD completed venlafaxine 75 MG Oral Tablet [place] ([facility]) doxycycline hyclate 100 MG Oral Capsule doxycycline hyclate 100 mg capsule TAKE ONE CAPSULE BY MOUTH TWICE A DAY doxycycline hyclate 100 mg capsule TAKE ONE CAPSULE BY MOUTH TWICE A DAY completed doxycycline hyclate 100 MG Oral Capsule [place] ([facility]) 0.5 ML dulaglutide 3 MG/ML Auto-Injector [Trulicity] Trulicity 1.5 mg/0.5 mL subcutaneous pen injector Trulicity 1.5 mg/0.5 mL subcutaneous pen injector completed 0.5 ML dulaglutide 3 M G/ML Auto-Injector [Trulicity] [place] ([facility]) Deblitane 0.35 mg tablet TAKE ONE TABLET BY MOUTH EVERY DAY [id number] completed Deblitane 0.35 mg tablet [place] ([facility]) 0.5 ML dulaglutide 3 MG/ML Auto-Injector [Trulicity] Trulicity 1.5 mg/0.5 mL subcutaneous pen injector Trulicity 1.5 mg/0.5 mL subcutaneous pen injector completed 0.5 ML dulaglutide 3 M G/ML Auto-Injector [Trulicity] [place] ([facility]) venlafaxine 75 MG Oral Tablet venlafaxin e 75 mg tablet TAKE ONE TABLET BY MOUTH EVERY DAY WITH FOOD venlafaxine 75 mg tablet TAKE ONE TABLET BY MOUTH EVERY DAY WITH FOOD completed venlafaxine 75 MG Oral Tablet [place] ([facility]) tramadol hydrochloride 50 MG Oral Tablet tramadol 50 m g tablet tramadol 50 mg tablet completed tramadol hydroc hloride 50 MG Oral Tablet [place] ([facility]) doxycycline hyclate 100 MG Oral Capsule doxycycline hyclate 100 mg capsule TAKE ONE CAPSULE BY MOUTH TWICE A DAY doxycycline hyclate 100 mg capsule TAKE ONE CAPSULE BY MOUTH TWICE A DAY completed doxycycline hyclate 100 MG Oral Capsule [place] ([facility]) pantoprazole 40 MG Delayed Release Oral Tablet pantoprazole 40 mg tablet,delayed release pantoprazole 40 mg tablet,delayed release completed pantoprazole 40 MG Delayed Release Oral Tablet [place] ([facility]) Sumatriptan 50 MG Oral Tablet sumatripta n 50 mg tablet TAKE ONE TABLET BY MOUTH TWICE A DAY NEEDED sumatriptan 50 mg tablet TAKE ONE TABLET BY MOUTH TWICE A DAY NEEDED completed sumatrip ernandez 50 MG Oral Tablet [place] ([facility]) 24 HR Bupropion Hydrochloride 450 MG Ext ended Release Oral Tablet bupropion HCl XL 450 mg 24 hr tablet, extended release TAKE ONE TABLET BY MOUTH EVERY MORNING bupropion HCl XL 450 mg 24 hr tablet, extended release TAKE ONE TABLET BY MOUTH EVERY MORNING completed 24 HR bupropion hydrochloride 450 MG Extended Release Oral Tablet [place] ([facility]) Sumatriptan 50 MG Oral Tablet sumatripta n 50 mg tablet TAKE ONE TABLET BY MOUTH TWICE A DAY NEEDED sumatriptan 50 mg tablet TAKE ONE TABLET BY MOUTH TWICE A DAY NEEDED completed sumatrip ernandez 50 MG Oral Tablet [place] ([facility]) Fluconazole 150 MG Oral Tablet fluconazo le 150 mg tablet TAKE 1 TABLET BY MOUTH ONCE fluconazole 150 mg tablet TAKE 1 TABLET BY MOUTH ONCE completed [facility]azole 150 [facility] Bupropion Hydrochloride 150 MG Ext ended Release Oral Tablet bupropion HCl XL 150 mg 24 hr tablet, extended release TAKE ONE TABLET BY MOUTH EVERY MORNING WITH 300MG bupropion HCl XL 150 mg 24 hr tablet, ex tended release TAKE ONE TABLET BY MOUTH EVERY MORNING WITH 300MG completed 24 HR bupropion hydrochloride 150 MG Extended Release Oral Tablet [place] ([facility]) Cephalexin 500 MG Oral Capsule cephalexin 500 mg capsu le cephalexin 500 mg capsule completed cephalexin 500 MG Oral Capsule [place] ([facility]) Sulfamethoxazole 800 MG / Trimethoprim 1 60 MG Oral Tablet sulfamethoxazole 800 mg-trimethoprim 160 mg tablet TAKE ONE TABLET BY MOUTH EVERY 12 HOURS sulfamethoxazole 800 mg-trimethoprim 160 mg tablet TAKE ONE TABLET BY MOUTH EVERY 12 HOURS completed sulfamethoxazole 800 MG / trimethoprim 160 MG Oral Tablet [place] ([facility]) Famotidine 20 MG Oral Tablet famotidine 20 mg tablet TAKE ONE TABLET BY MOUTH EVERY DAY AT BEDTIME NEEDED famotidine 20 mg tablet TAKE ONE TABLET BY MOUTH EVERY DAY AT BEDTIME NEEDED complet ed famotidine 20 MG Oral Tablet [place] ([facility]) dapagliflozin 10 MG Oral Tablet [Farxiga ] Farxiga 10 mg tablet TAKE ONE TABLET BY MOUTH EVERY DAY Farxiga 10 mg tablet TAKE ONE TABLET BY MOUTH EVERY DAY completed dapagliflozin 10 MG Or al Tablet [Farxiga] [place] ([facility]) 24 HR Bupropion Hydrochloride 450 MG Ext ended Release Oral Tablet bupropion HCl XL 450 mg 24 hr tablet, extended release TAKE ONE TABLET BY MOUTH EVERY MORNING bupropion HCl XL 450 mg 24 hr tablet, extended release TAKE ONE TABLET BY MOUTH EVERY MORNING completed 24 HR bupropion hydrochloride 450 MG Extended Release Oral Tablet [place] ([facility]) Ranitidine 150 MG Oral Tablet ranitidine 150 mg tablet TAKE ONE TABLET BY MOUTH TWICE A DAY ranitidine 150 mg tablet TAKE ONE TABLET BY MOUTH TWICE A DAY completed ranitidine 150 MG Or al Tablet [place] ([facility]) tramadol hydrochloride 50 MG Oral Tablet tramadol 50 m g tablet tramadol 50 mg tablet completed tramadol hydroc hloride 50 MG Oral Tablet [place] ([facility]) Prazosin 1 MG Oral Capsule prazosin 1 mg capsule TAKE 1 CAPSULE BY MOUTH EVERY NIGHT NEEDED FOR [employer]ES [employer]OC[employer] WITH PTSD prazosin 1 mg capsule TAKE 1 CAPSULE BY MOUTH EVERY NIGHT NEEDED FOR [employer] WITH PTSD completed prazosin 1 MG Oral Cap lora [place] ([facility]) Deblitane 0.35 mg tablet TAKE ONE TABLET BY MOUTH EVERY DAY [id number] completed Deblitane 0.35 mg tablet [place] ([facility]) Cephalexin 500 MG Oral Capsule cephalexin 500 mg capsu le cephalexin 500 mg capsule completed cephalexin 500 MG Oral Capsule [place] ([facility]) Cephalexin 500 MG Oral Capsule cephalexin 500 mg capsu le cephalexin 500 mg capsule completed cephalexin 500 MG Oral Capsule [place] ([facility]) Fluconazole 150 MG Oral Tablet fluconazo le 150 mg tablet TAKE 1 TABLET BY MOUTH ONCE fluconazole 150 mg tablet TAKE 1 TABLET BY MOUTH ONCE completed fluconazole 150 MG Oral Tablet A [place] ([facility]) Sucralfate 1000 MG Oral Tablet sucralfat e 1 gram tablet TAKE ONE TABLET BY MOUTH FOUR TIMES A DAY NEEDED sucralfate 1 gram tablet TAKE ONE TABLET BY MOUTH FOUR TIMES A DAY NEEDED completed sucralfate 1000 MG Oral Tablet [place] ([facility]) NITROFURANTOIN, MACROCRYSTALS 25 MG / Ni trofurantoin, Monohydrate 75 MG Oral Capsule nitrofurantoin monohydrate/macrocrystals 100 mg capsule TAKE ONE CAPSULE BY MOUTH TWICE A DAY nitrofurantoin monohydrate/macrocrystals 100 mg capsule TAKE ONE CAPSULE BY MOUTH TWICE A DAY completed nitrofurantoin, macrocrystals 25 MG / nitrofurantoin, monohydrate 75 MG Oral Capsule [place] ([facility]) dapagliflozin 10 MG Oral Tablet [Farxiga ] Farxiga 10 mg tablet TAKE ONE TABLET BY MOUTH EVERY DAY Farxiga 10 mg tablet TAKE ONE TABLET BY MOUTH EVERY DAY completed dapagliflozin 10 MG Or al Tablet [Farxiga] [place] ([facility]) Clonidine Hydrochloride 0.1 MG Oral Tabl et clonidine HCl 0.1 mg tablet TAKE ONE TABLET BY MOUTH TWICE A DAY clonidine HCl 0.1 mg tablet TAKE ONE TAB LET BY MOUTH TWICE A DAY completed c lonidine hydrochloride 0.1 MG Oral Tablet [place] ([facility]) 0.5 ML dulaglutide 1.5 MG/ML Auto-Inject or [Trulicity] Trulicity 0.75 mg/0.5 mL subcutaneous pen injector Trulicity 0.75 mg/0.5 mL subcutaneous pen injector completed 0.5 ML dulaglu tide 1.5 MG/ML Auto-Injector [Trulicity] [place] ([facility]) Deblitane 0.35 mg tablet TAKE ONE TABLET BY MOUTH EVERY DAY [id number] completed Deblitane 0.35 mg tablet [place] ([facility]) Cephalexin 500 MG Oral Capsule cephalexin 500 mg capsu le cephalexin 500 mg capsule completed cephalexin 500 MG Oral Capsule [place] ([facility]) Amoxicillin 875 MG / Clavulanate 125 MG Oral Tablet amoxicillin 875 mg-potassium clavulanate 125 mg tablet TAKE ONE TABLET BY MOUTH TWICE A DAY amoxicillin 875 mg-potassium clavulanate 125 mg tablet TAKE ONE TABLET BY MOUTH TWICE A DAY completed amoxicillin 875 MG / c lavulanate 125 MG Oral Tablet [place] ([facility]) 24 HR Bupropion Hydrochloride 150 MG Ext ended Release Oral Tablet bupropion HCl XL 150 mg 24 hr tablet, extended release TAKE ONE TABLET BY MOUTH EVERY MORNING WITH 300MG bupropion HCl XL 150 mg 24 hr tablet, ex tended release TAKE ONE TABLET BY MOUTH EVERY MORNING WITH 300MG completed 24 HR bupropion hydrochloride 150 MG Extended Release Oral Tablet [place] ([facility]) Clonidine Hydrochloride 0.1 MG Oral Tabl et clonidine HCl 0.1 mg tablet TAKE ONE TABLET BY MOUTH TWICE A DAY clonidine HCl 0.1 mg tablet TAKE ONE TAB LET BY MOUTH TWICE A DAY completed c lonidine hydrochloride 0.1 MG Oral Tablet [facility] er) 0.5 ML dulaglutide 3 MG/ML Auto-Injector [Trulicity] Trulicity 1.5 mg/0.5 mL subcutaneous pen injector Trulicity 1.5 mg/0.5 mL subcutaneous pen injector completed 0.5 ML dulaglutide 3 M G/ML Auto-Injector [Trulicity] [place] ([facility]) 0.5 ML dulaglutide 1.5 MG/ML Auto-Inject or [Trulicity] Trulicity 0.75 mg/0.5 mL subcutaneous pen injector INJECT 0.5ML UNDER THE SKIN ONCE WEEKLY Trulicity 0.75 mg/0.5 mL subcutaneous pen injector INJECT 0.5ML UNDER THE SKIN ONCE WEEKLY completed 0.5 ML dulaglu tide 1.5 MG/ML Auto-Injector [Trulicity] [facility]) Famotidine 20 MG Oral Tablet famotidine 20 mg tablet TAKE ONE TABLET BY MOUTH EVERY DAY AT BEDTIME NEEDED famotidine 20 mg tablet TAKE ONE TABLET BY MOUTH EVERY DAY AT BEDTIME NEEDED complet ed famotidine 20 MG Oral Tablet [place] ([facility]) Sucralfate 1000 MG Oral Tablet sucralfat e 1 gram tablet TAKE ONE TABLET BY MOUTH FOUR TIMES A DAY NEEDED sucralfate 1 gram tablet TAKE ONE TABLET BY MOUTH FOUR TIMES A DAY NEEDED completed sucralfate 1000 MG Oral Tablet [place] ([facility]) celecoxib 100 MG Oral Capsule celecoxib 100 mg capsule celec oxib 100 mg capsule completed celecoxib 100 MG Oral Capsule [place] ([facility]) doxycycline hyclate 100 MG Oral Capsule doxycycline hyclate 100 mg capsule TAKE ONE CAPSULE BY MOUTH TWICE A DAY doxycycline hyclate 100 mg capsule TAKE ONE CAPSULE BY MOUTH TWICE A DAY completed doxycycline hyclate 100 MG Oral Capsule [place] ([facility]) Ondansetron 4 MG Oral Tablet ondansetron HCl 4 mg tablet TAKE ONE TABLET BY MOUTH FOUR TIMES A DAY NEEDED ondansetron HCl 4 mg tablet TAKE ONE TAB LET BY MOUTH FOUR TIMES A DAY NEEDED compl eted ondansetron 4 MG Oral Tablet [place] ([facility]) Sucralfate 1000 MG Oral Tablet sucralfat e 1 gram tablet TAKE ONE TABLET BY MOUTH FOUR TIMES A DAY NEEDED sucralfate 1 gram tablet TAKE ONE TABLET BY MOUTH FOUR TIMES A DAY NEEDED completed sucralfate 1000 MG Oral Tablet [place] ([facility]) Clindamycin 150 MG Oral Capsule clindamy fortino HCl 150 mg capsule TAKE THREE CAPSULES BY MOUTH THREE TIMES A DAY clindamycin HCl 150 mg capsule TAKE THRE E CAPSULES BY MOUTH THREE TIMES A DAY co mpleted clindamycin 150 MG Oral Capsule [place] ([facility]) venlafaxine 75 MG Oral Tablet venlafaxin e 75 mg tablet TAKE ONE TABLET BY MOUTH EVERY DAY WITH FOOD venlafaxine 75 mg tablet TAKE ONE TABLET BY MOUTH EVERY DAY WITH FOOD completed venlafaxine 75 MG Oral Tablet [place] ([facility]) Amoxicillin 875 MG / Clavulanate 125 MG Oral Tablet amoxicillin 875 mg-potassium clavulanate 125 mg tablet TAKE ONE TABLET BY MOUTH TWICE A DAY amoxicillin 875 mg-potassium clavulanate 125 mg tablet TAKE ONE TABLET BY MOUTH TWICE A DAY completed amoxicillin 875 MG / c lavulanate 125 MG Oral Tablet [place] ([facility]) Famotidine 20 MG Oral Tablet famotidine 20 mg tablet TAKE ONE TABLET BY MOUTH EVERY DAY AT BEDTIME NEEDED famotidine 20 mg tablet TAKE ONE TABLET BY MOUTH EVERY DAY AT BEDTIME NEEDED complet ed famotidine 20 MG Oral Tablet [place] ([facility]) Ondansetron 8 MG Disintegrating Oral Tab let ondansetron 8 mg disintegrating tablet DISSOLVE 1 TABLET UNDER THE TONGUE TWO TIMES A DAY ondansetron 8 mg disintegrating tablet DISSOLVE 1 TABLET UNDER THE TONGUE TWO TIMES A DAY completed ondansetron 8 MG Dis integrating Oral Tablet [place] ([facility]) celecoxib 100 MG Oral Capsule celecoxib 100 mg capsule celec oxib 100 mg capsule completed celecoxib 100 MG Oral Capsule [place] ([facility]) Ranitidine 150 MG Oral Tablet ranitidine 150 mg tablet TAKE ONE TABLET BY MOUTH TWICE A DAY ranitidine 150 mg tablet TAKE ONE TABLET BY MOUTH TWICE A DAY completed ranitidine 150 MG Or al Tablet [place] ([facility]) Sumatriptan 50 MG Oral Tablet sumatripta n 50 mg tablet TAKE ONE TABLET BY MOUTH TWICE A DAY NEEDED sumatriptan 50 mg tablet TAKE ONE TABLET BY MOUTH TWICE A DAY NEEDED completed sumatrip ernandez 50 MG Oral Tablet [place] ([facility]) Deblitane 0.35 mg tablet TAKE ONE TABLET BY MOUTH EVERY DAY [id number] completed Deblitane 0.35 mg tablet [place] ([facility]) NITROFURANTOIN, MACROCRYSTALS 25 MG / Ni trofurantoin, Monohydrate 75 MG Oral Capsule nitrofurantoin monohydrate/macrocrystals 100 mg capsule TAKE ONE CAPSULE BY MOUTH TWICE A DAY nitrofurantoin monohydrate/macrocrystals 100 mg capsule TAKE ONE CAPSULE BY MOUTH TWICE A DAY completed nitrofurantoin, macrocrystals 25 MG / nitrofurantoin, monohydrate 75 MG Oral Capsule [place] ([facility]) 0.5 ML dulaglutide 1.5 MG/ML Auto-Inject or [Trulicity] Trulicity 0.75 mg/0.5 mL subcutaneous pen injector INJECT 0.5ML UNDER THE SKIN ONCE WEEKLY Trulicity 0.75 mg/0.5 mL subcutaneous pen injector INJECT 0.5ML UNDER THE SKIN ONCE WEEKLY completed 0.5 ML dulaglu tide 1.5 MG/ML Auto-Injector [Trulicity] [place] ([facility]) Cephalexin 500 MG Oral Capsule cephalexin 500 mg capsu le cephalexin 500 mg capsule completed cephalexin 500 MG Oral Capsule [place] ([facility]) Sulfamethoxazole 800 MG / Trimethoprim 1 60 MG Oral Tablet sulfamethoxazole 800 mg-trimethoprim 160 mg tablet TAKE ONE TABLET BY MOUTH EVERY 12 HOURS sulfamethoxazole 800 mg-trimethoprim 160 mg tablet TAKE ONE TABLET BY MOUTH EVERY 12 HOURS completed sulfamethoxazole 800 MG / trimethoprim 160 MG Oral Tablet [place] ([facility]) NITROFURANTOIN, MACROCRYSTALS 25 MG / Ni trofurantoin, Monohydrate 75 MG Oral Capsule nitrofurantoin monohydrate/macrocrystals 100 mg capsule TAKE ONE CAPSULE BY MOUTH TWICE A DAY nitrofurantoin monohydrate/macrocrystals 100 mg capsule TAKE ONE CAPSULE BY MOUTH TWICE A DAY completed nitrofurantoin, macrocrystals 25 MG / nitrofurantoin, monohydrate 75 MG Oral Capsule [place] ([facility]) Prazosin 1 MG Oral Capsule prazosin 1 mg capsule TAKE 1 CAPSULE BY MOUTH EVERY NIGHT NEEDED FOR [employer]OC[employer] WITH PTSD prazosin 1 mg capsule TAKE 1 CAPSULE BY MOUTH EVERY NIGHT NEEDED FOR N[employer]OCI[employer] WITH PTSD completed prazosin 1 MG Oral Cap lora [place] ([facility]) Deblitane 0.35 mg tablet TAKE ONE TABLET BY MOUTH EVERY DAY [id number] completed Deblitane 0.35 mg tablet [place] ([facility]) Trulicity 3 mg/0.5 mL subcutaneous pen injector [id number] completed 0.5 ML dulaglutide 6 MG/ML Auto-Injector [Trulicity] [facility]en ANDRADE ([facility]) Clonidine Hydrochloride 0.1 MG Oral Tabl et clonidine HCl 0.1 mg tablet TAKE ONE TABLET BY MOUTH TWICE A DAY clonidine HCl 0.1 mg tablet TAKE ONE TAB LET BY MOUTH TWICE A DAY completed c lonidine hydrochloride 0.1 MG Oral Tablet [place] ([facility]) Famotidine 20 MG Oral Tablet famotidine 20 mg tablet TAKE ONE TABLET BY MOUTH EVERY DAY AT BEDTIME NEEDED famotidine 20 mg tablet TAKE ONE TABLET BY MOUTH EVERY DAY AT BEDTIME NEEDED complet ed famotidine 20 MG Oral Tablet [place] ([facility]) Cephalexin 500 MG Oral Capsule cephalexin 500 mg capsu le cephalexin 500 mg capsule completed cephalexin 500 MG Oral Capsule [place] ([facility]) Sumatriptan 50 MG Oral Tablet sumatripta n 50 mg tablet TAKE ONE TABLET BY MOUTH TWICE A DAY NEEDED sumatriptan 50 mg tablet TAKE ONE TABLET BY MOUTH TWICE A DAY NEEDED completed sumatrip ernandez 50 MG Oral Tablet [facility] ([facility]) 24 HR Bupropion Hydrochloride 450 MG Ext ended Release Oral Tablet bupropion HCl XL 450 mg 24 hr tablet, extended release TAKE ONE TABLET BY MOUTH EVERY MORNING bupropion HCl XL 450 mg 24 hr tablet, extended release TAKE ONE TABLET BY MOUTH EVERY MORNING completed 24 HR bupropion hydrochloride 450 MG Extended Release Oral Tablet [place] ([facility]) Sucralfate 1000 MG Oral Tablet sucralfat e 1 gram tablet TAKE ONE TABLET BY MOUTH FOUR TIMES A DAY NEEDED sucralfate 1 gram tablet TAKE ONE TABLET BY MOUTH FOUR TIMES A DAY NEEDED completed sucralfate 1000 MG Oral Tablet TONEY ([facility]) doxycycline hyclate 100 MG Oral Capsule doxycycline hyclate 100 mg capsule TAKE ONE CAPSULE BY MOUTH TWICE A DAY doxycycline hyclate 100 mg capsule TAKE ONE CAPSULE BY MOUTH TWICE A DAY completed doxycycline hyclate 100 MG Oral Capsule [place] ([facility]) Amoxicillin 875 MG / Clavulanate 125 MG Oral Tablet amoxicillin 875 mg-potassium clavulanate 125 mg tablet TAKE ONE TABLET BY MOUTH TWICE A DAY amoxicillin 875 mg-potassium clavulanate 125 mg tablet TAKE ONE TABLET BY MOUTH TWICE A DAY completed amoxicillin 875 MG / c lavulanate 125 MG Oral Tablet TONEY ([facility]) Fluconazole 150 MG Oral Tablet fluconazo le 150 mg tablet TAKE 1 TABLET BY MOUTH ONCE fluconazole 150 mg tablet TAKE 1 TABLET BY MOUTH ONCE completed fluconazole 150 MG Oral Tablet Carmen THENCarmen ([facility]) pantoprazole 40 MG Delayed Release Oral Tablet pantoprazole 40 mg tablet,delayed release pantoprazole 40 mg tablet,delayed release completed pantoprazole 40 MG Delayed Release Oral Tablet TONEY ([facility]) Cephalexin 500 MG Oral Capsule cephalexin 500 mg capsu le cephalexin 500 mg capsule completed cephalexin 500 MG Oral Capsule TONEY ([facility]) Ondansetron 4 MG Oral Tablet ondansetron HCl 4 mg tablet TAKE ONE TABLET BY MOUTH FOUR TIMES A DAY NEEDED ondansetron HCl 4 mg tablet TAKE ONE TAB LET BY MOUTH FOUR TIMES A DAY NEEDED compl eted ondansetron 4 MG Oral Tablet TONEY ([facility]) Sumatriptan 50 MG Oral Tablet sumatripta n 50 mg tablet TAKE ONE TABLET BY MOUTH TWICE A DAY NEEDED sumatriptan 50 mg tablet TAKE ONE TABLET BY MOUTH TWICE A DAY NEEDED completed sumatrip ernandez 50 MG Oral Tablet TONEY ([facility]) tramadol hydrochloride 50 MG Oral Tablet tramadol 50 m g tablet tramadol 50 mg tablet completed tramadol hydroc hloride 50 MG Oral Tablet TONEY ([facility]) 0.5 ML dulaglutide 3 MG/ML Auto-Injector [Trulicity] Trulicity 1.5 mg/0.5 mL subcutaneous pen injector Trulicity 1.5 mg/0.5 mL subcutaneous pen injector completed 0.5 ML dulaglutide 3 M G/ML Auto-Injector [Trulicity] TONEY ([facility]) Fluconazole 150 MG Oral Tablet fluconazo le 150 mg tablet TAKE 1 TABLET BY MOUTH ONCE fluconazole 150 mg tablet TAKE 1 TABLET BY MOUTH ONCE completed fluconazole 150 MG Oral Tablet A THENA ([facility]) Deblitane 0.35 mg tablet TAKE ONE TABLET BY MOUTH EVERY DAY [id number] completed Deblitane 0.35 mg tablet TONEY ([facility]) Deblitane 0.35 mg tablet TAKE ONE TABLET BY MOUTH EVERY DAY [id number] completed Deblitane 0.35 mg tablet TONEY ([facility]) Prazosin 1 MG Oral Capsule prazosin 1 mg capsule TAKE 1 CAPSULE BY MOUTH EVERY NIGHT NEEDED FOR NIGHTMARES ASSOCIATED WITH PTSD prazosin 1 mg capsule TAKE 1 CAPSULE BY MOUTH EVERY NIGHT NEEDED FOR NIGHTMARES ASSOCIATED WITH PTSD completed prazosin 1 MG Oral Cap lora TONEY ([facility]) Amoxicillin 875 MG / Clavulanate 125 MG Oral Tablet amoxicillin 875 mg-potassium clavulanate 125 mg tablet TAKE ONE TABLET BY MOUTH TWICE A DAY amoxicillin 875 mg-potassium clavulanate 125 mg tablet TAKE ONE TABLET BY MOUTH TWICE A DAY completed amoxicillin 875 MG / c lavulanate 125 MG Oral Tablet [place] ([facility]) Prazosin 1 MG Oral Capsule prazosin 1 mg capsule TAKE 1 CAPSULE BY MOUTH EVERY NIGHT NEEDED FOR NIGHTMARES ASSOCIATED WITH PTSD prazosin 1 mg capsule TAKE 1 CAPSULE BY MOUTH EVERY NIGHT NEEDED FOR NIGHTMARES ASSOCIATED WITH PTSD completed prazosin 1 MG Oral Cap lora TONEY ([facility]) pantoprazole 40 MG Delayed Release Oral Tablet pantoprazole 40 mg tablet,delayed release pantoprazole 40 mg tablet,delayed release completed pantoprazole 40 MG Delayed Release Oral Tablet [place] ([facility]) Cephalexin 500 MG Oral Capsule cephalexin 500 mg capsu le cephalexin 500 mg capsule completed cephalexin 500 MG Oral Capsule [place] ([facility]) Ciprofloxacin 500 MG Oral Tablet ciprofloxacin 500 mg tablet ciprofloxacin 500 mg tablet completed ciprofloxaci n 500 MG Oral Tablet [place] ([facility]) 24 HR Bupropion Hydrochloride 150 MG Ext ended Release Oral Tablet bupropion HCl XL 150 mg 24 hr tablet, extended release TAKE ONE TABLET BY MOUTH EVERY MORNING WITH 300MG bupropion HCl XL 150 mg 24 hr tablet, ex tended release TAKE ONE TABLET BY MOUTH EVERY MORNING WITH 300MG completed 24 HR bupropion hydrochloride 150 MG Extended Release Oral Tablet [place] ([facility]) Amoxicillin 875 MG / Clavulanate 125 MG Oral Tablet amoxicillin 875 mg-potassium clavulanate 125 mg tablet TAKE ONE TABLET BY MOUTH TWICE A DAY amoxicillin 875 mg-potassium clavulanate 125 mg tablet TAKE ONE TABLET BY MOUTH TWICE A DAY completed amoxicillin 875 MG / c lavulanate 125 MG Oral Tablet [place] ([facility]) Ciprofloxacin 500 MG Oral Tablet ciprofloxacin 500 mg tablet ciprofloxacin 500 mg tablet completed ciprofloxaci n 500 MG Oral Tablet [place] ([facility]) doxycycline hyclate 100 MG Oral Capsule doxycycline hyclate 100 mg capsule TAKE ONE CAPSULE BY MOUTH TWICE A DAY doxycycline hyclate 100 mg capsule TAKE ONE CAPSULE BY MOUTH TWICE A DAY completed doxycycline hyclate 100 MG Oral Capsule [facility]) Fluconazole 150 MG Oral Tablet fluconazo le 150 mg tablet TAKE 1 TABLET BY MOUTH ONCE fluconazole 150 mg tablet TAKE 1 TABLET BY MOUTH ONCE completed fluconazole 150 MG Oral Tablet A THENA ([facility]) 0.5 ML dulaglutide 1.5 MG/ML Auto-Inject or [Trulicity] Trulicity 0.75 mg/0.5 mL subcutaneous pen injector Trulicity 0.75 mg/0.5 mL subcutaneous pen injector completed 0.5 ML dulaglu tide 1.5 MG/ML Auto-Injector [Trulicity] TONEY ([facility]) nitrofurantoin 100 mg tablet Take by oral route. [id number] completed nitrofurantoin 100 mg tablet TONEY ([facility]) Sucralfate 1000 MG Oral Tablet sucralfat e 1 gram tablet TAKE ONE TABLET BY MOUTH FOUR TIMES A DAY NEEDED sucralfate 1 gram tablet TAKE ONE TABLET BY MOUTH FOUR TIMES A DAY NEEDED completed sucralfate 1000 MG Oral Tablet TONEY ([facility]) Sumatriptan 50 MG Oral Tablet sumatripta n 50 mg tablet TAKE ONE TABLET BY MOUTH TWICE A DAY NEEDED sumatriptan 50 mg tablet TAKE ONE TABLET BY MOUTH TWICE A DAY NEEDED completed sumatrip ernandez 50 MG Oral Tablet [place] ([facility]) Clonidine Hydrochloride 0.1 MG Oral Tabl et clonidine HCl 0.1 mg tablet TAKE ONE TABLET BY MOUTH TWICE A DAY clonidine HCl 0.1 mg tablet TAKE ONE TAB LET BY MOUTH TWICE A DAY completed c lonidine hydrochloride 0.1 MG Oral Tablet TONEY ([facility]) Ranitidine 150 MG Oral Tablet ranitidine 150 mg tablet TAKE ONE TABLET BY MOUTH TWICE A DAY ranitidine 150 mg tablet TAKE ONE TABLET BY MOUTH TWICE A DAY completed ranitidine 150 MG Or al Tablet TONEY ([facility]) Ibuprofen 200 MG Oral Capsule ibuprofen 200 mg capsule Take 1 capsule every 6 hours by oral route. ibuprofen 200 mg capsule Take 1 capsule every 6 hours by oral route. 1 capsule(s) completed ibu profen 200 MG Oral Capsule [place] ([facility]) 0.5 ML dulaglutide 3 MG/ML Auto-Injector [Trulicity] Trulicity 1.5 mg/0.5 mL subcutaneous pen injector INJECT ONE PEN UNDER THE SKIN ONCE WEEKLY Trulicity 1.5 mg/0.5 mL subcutaneous pen injector INJECT ONE PEN UNDER THE SKIN ONCE WEEKLY completed 0.5 ML dulaglutide 3 MG/ML Auto-Injector [Trulicity] TONEY ([facility]) Clindamycin 150 MG Oral Capsule clindamy fortino HCl 150 mg capsule TAKE THREE CAPSULES BY MOUTH THREE TIMES A DAY clindamycin HCl 150 mg capsule TAKE THRE E CAPSULES BY MOUTH THREE TIMES A DAY co mpleted clindamycin 150 MG Oral Capsule TONEY ([facility]) doxycycline hyclate 100 MG Oral Capsule doxycycline hyclate 100 mg capsule TAKE ONE CAPSULE BY MOUTH TWICE A DAY doxycycline hyclate 100 mg capsule TAKE ONE CAPSULE BY MOUTH TWICE A DAY completed doxycycline hyclate 100 MG Oral Capsule [place] ([facility]) nitrofurantoin 100 mg tablet Take by oral route. [id number] completed nitrofurantoin 100 mg tablet [place] ([facility]) dapagliflozin 10 MG Oral Tablet [Farxiga ] Farxiga 10 mg tablet TAKE ONE TABLET BY MOUTH EVERY DAY Farxiga 10 mg tablet TAKE ONE TABLET BY MOUTH EVERY DAY completed dapagliflozin 10 MG Or al Tablet [Farxiga] [place] ([facility]) Deblitane 0.35 mg tablet TAKE ONE TABLET BY MOUTH EVERY DAY [id number] completed Deblitane 0.35 mg tablet [place] ([facility]) 24 HR Bupropion Hydrochloride 450 MG Ext ended Release Oral Tablet bupropion HCl XL 450 mg 24 hr tablet, extended release TAKE ONE TABLET BY MOUTH EVERY MORNING bupropion HCl XL 450 mg 24 hr tablet, extended release TAKE ONE TABLET BY MOUTH EVERY MORNING completed 24 HR bupropion hydrochloride 450 MG Extended Release Oral Tablet [facility]ONE[facility] ([facility]) Sucralfate 1000 MG Oral Tablet sucralfat e 1 gram tablet TAKE ONE TABLET BY MOUTH FOUR TIMES A DAY NEEDED sucralfate 1 gram tablet TAKE ONE TABLET BY MOUTH FOUR TIMES A DAY NEEDED completed sucralfate 1000 MG Oral Tablet [place] ([facility]) Ciprofloxacin 500 MG Oral Tablet ciprofloxacin 500 mg tablet ciprofloxacin 500 mg tablet completed ciprofloxaci n 500 MG Oral Tablet [place] ([facility]) Ondansetron 4 MG Oral Tablet ondansetron HCl 4 mg tablet TAKE ONE TABLET BY MOUTH FOUR TIMES A DAY NEEDED ondansetron HCl 4 mg tablet TAKE ONE TAB LET BY MOUTH FOUR TIMES A DAY NEEDED compl eted ondansetron 4 MG Oral Tablet [facility]ONE[place] ([facility]) 0.5 ML dulaglutide 1.5 MG/ML Auto-Inject or [Trulicity] Trulicity 0.75 mg/0.5 mL subcutaneous pen injector INJECT 0.5ML UNDER THE SKIN ONCE WEEKLY Trulicity 0.75 mg/0.5 mL subcutaneous pen injector INJECT 0.5ML UNDER THE SKIN ONCE WEEKLY completed 0.5 ML dulaglu tide 1.5 MG/ML Auto-Injector [Trulicity] [place] ([facility]) Famotidine 20 MG Oral Tablet famotidine 20 mg tablet TAKE ONE TABLET BY MOUTH EVERY DAY AT BEDTIME NEEDED famotidine 20 mg tablet TAKE ONE TABLET BY MOUTH EVERY DAY AT BEDTIME NEEDED complet ed famotidine 20 MG Oral Tablet [place] ([facility]) Deblitane 0.35 mg tablet TAKE ONE TABLET BY MOUTH EVERY DAY [id number] completed Deblitane 0.35 mg tablet [place] ([facility]) Sulfamethoxazole 800 MG / Trimethoprim 1 60 MG Oral Tablet sulfamethoxazole 800 mg-trimethoprim 160 mg tablet TAKE ONE TABLET BY MOUTH EVERY 12 HOURS sulfamethoxazole 800 mg-trimethoprim 160 mg tablet TAKE ONE TABLET BY MOUTH EVERY 12 HOURS completed sulfamethoxazole 800 MG / trimethoprim 160 MG Oral Tablet [place] ([facility]) Clonidine Hydrochloride 0.1 MG Oral Tabl et clonidine HCl 0.1 mg tablet TAKE ONE TABLET BY MOUTH TWICE A DAY clonidine HCl 0.1 mg tablet TAKE ONE TAB LET BY MOUTH TWICE A DAY completed c lonidine hydrochloride 0.1 MG Oral Tablet TONEY ([facility]) Fluconazole 150 MG Oral Tablet fluconazo le 150 mg tablet TAKE 1 TABLET BY MOUTH ONCE fluconazole 150 mg tablet TAKE 1 TABLET BY MOUTH ONCE completed fluconazole 150 MG Oral Tablet A THENA ([facility]) Ibuprofen 200 MG Oral Capsule ibuprofen 200 mg capsule Take 1 capsule every 6 hours by oral route. ibuprofen 200 mg capsule Take 1 capsule every 6 hours by oral route. 1 capsule(s) completed ibu profen 200 MG Oral Capsule [place] ([facility]) Amoxicillin 875 MG / Clavulanate 125 MG Oral Tablet amoxicillin 875 mg-potassium clavulanate 125 mg tablet TAKE ONE TABLET BY MOUTH TWICE A DAY amoxicillin 875 mg-potassium clavulanate 125 mg tablet TAKE ONE TABLET BY MOUTH TWICE A DAY completed amoxicillin 875 MG / c lavulanate 125 MG Oral Tablet [place] ([facility]) 0.5 ML dulaglutide 1.5 MG/ML Auto-Inject or [Trulicity] Trulicity 0.75 mg/0.5 mL subcutaneous pen injector INJECT 0.5ML UNDER THE SKIN ONCE WEEKLY Trulicity 0.75 mg/0.5 mL subcutaneous pen injector INJECT 0.5ML UNDER THE SKIN ONCE WEEKLY completed 0.5 ML dulaglu tide 1.5 MG/ML Auto-Injector [Trulicity] [place] ([facility]) Ranitidine 150 MG Oral Tablet ranitidine 150 mg tablet TAKE ONE TABLET BY MOUTH TWICE A DAY ranitidine 150 mg tablet TAKE ONE TABLET BY MOUTH TWICE A DAY completed ranitidine 150 MG Or al Tablet [place] ([facility]) Ciprofloxacin 500 MG Oral Tablet ciprofloxacin 500 mg tablet ciprofloxacin 500 mg tablet completed ciprofloxaci n 500 MG Oral Tablet [place] ([facility]) Ibuprofen 200 MG Oral Capsule ibuprofen 200 mg capsule Take 1 capsule every 6 hours by oral route. ibuprofen 200 mg capsule Take 1 capsule every 6 hours by oral route. 1 capsule(s) completed ibu profen 200 MG Oral Capsule [place] ([facility]) Ciprofloxacin 500 MG Oral Tablet ciprofloxacin 500 mg tablet ciprofloxacin 500 mg tablet completed ciprofloxaci n 500 MG Oral Tablet [place] ([facility]) Clindamycin 150 MG Oral Capsule clindamy fortino HCl 150 mg capsule TAKE THREE CAPSULES BY MOUTH THREE TIMES A DAY clindamycin HCl 150 mg capsule TAKE THRE E CAPSULES BY MOUTH THREE TIMES A DAY co mpleted clindamycin 150 MG Oral Capsule [place] ([facility]) 24 HR Bupropion Hydrochloride 450 MG Ext ended Release Oral Tablet bupropion HCl XL 450 mg 24 hr tablet, extended release TAKE ONE TABLET BY MOUTH EVERY MORNING bupropion HCl XL 450 mg 24 hr tablet, extended release TAKE ONE TABLET BY MOUTH EVERY MORNING completed 24 HR bupropion hydrochloride 450 MG Extended Release Oral Tablet [place] ([facility]) Cephalexin 500 MG Oral Capsule cephalexin 500 mg capsu le cephalexin 500 mg capsule completed cephalexin 500 MG Oral Capsule [place] ([facility]) Clindamycin 150 MG Oral Capsule clindamy fortino HCl 150 mg capsule TAKE THREE CAPSULES BY MOUTH THREE TIMES A DAY clindamycin HCl 150 mg capsule TAKE THRE E CAPSULES BY MOUTH THREE TIMES A DAY co mpleted clindamycin 150 MG Oral Capsule [facility]ONE[place] ([facility]) nitrofurantoin 100 mg tablet Take by oral route. [id number] completed nitrofurantoin 100 mg tablet TONEY ([facility]) 24 HR Bupropion Hydrochloride 150 MG Ext ended Release Oral Tablet bupropion HCl XL 150 mg 24 hr tablet, extended release TAKE ONE TABLET BY MOUTH EVERY MORNING WITH 300MG bupropion HCl XL 150 mg 24 hr tablet, ex tended release TAKE ONE TABLET BY MOUTH EVERY MORNING WITH 300MG completed 24 HR bupropion hydrochloride 150 MG Extended Release Oral Tablet [place] ([facility]) Fluconazole 150 MG Oral Tablet fluconazo le 150 mg tablet TAKE 1 TABLET BY MOUTH ONCE fluconazole 150 mg tablet TAKE 1 TABLET BY MOUTH ONCE completed fluconazole 150 MG Oral Tablet A [place] ([facility]) 24 HR Bupropion Hydrochloride 450 MG Ext ended Release Oral Tablet bupropion HCl XL 450 mg 24 hr tablet, extended release TAKE ONE TABLET BY MOUTH EVERY MORNING bupropion HCl XL 450 mg 24 hr tablet, extended release TAKE ONE TABLET BY MOUTH EVERY MORNING completed 24 HR bupropion hydrochloride 450 MG Extended Release Oral Tablet TONEY ([facility]) tramadol hydrochloride 50 MG Oral Tablet tramadol 50 m g tablet tramadol 50 mg tablet completed tramadol hydroc hloride 50 MG Oral Tablet [place] ([facility]) Sucralfate 1000 MG Oral Tablet sucralfat e 1 gram tablet TAKE ONE TABLET BY MOUTH FOUR TIMES A DAY NEEDED sucralfate 1 gram tablet TAKE ONE TABLET BY MOUTH FOUR TIMES A DAY NEEDED completed sucralfate 1000 MG Oral Tablet TONEY ([facility]) Sulfamethoxazole 800 MG / Trimethoprim 1 60 MG Oral Tablet sulfamethoxazole 800 mg-trimethoprim 160 mg tablet TAKE ONE TABLET BY MOUTH EVERY 12 HOURS sulfamethoxazole 800 mg-trimethoprim 160 mg tablet TAKE ONE TABLET BY MOUTH EVERY 12 HOURS completed sulfamethoxazole 800 MG / trimethoprim 160 MG Oral Tablet TONEY ([facility]) 0.5 ML dulaglutide 1.5 MG/ML Auto-Inject or [Trulicity] Trulicity 0.75 mg/0.5 mL subcutaneous pen injector INJECT 0.5ML UNDER THE SKIN ONCE WEEKLY Trulicity 0.75 mg/0.5 mL subcutaneous pen injector INJECT 0.5ML UNDER THE SKIN ONCE WEEKLY completed 0.5 ML dulaglu tide 1.5 MG/ML Auto-Injector [Trulicity] [place] ([facility]) Famotidine 20 MG Oral Tablet famotidine 20 mg tablet TAKE ONE TABLET BY MOUTH EVERY DAY AT BEDTIME NEEDED famotidine 20 mg tablet TAKE ONE TABLET BY MOUTH EVERY DAY AT BEDTIME NEEDED complet ed famotidine 20 MG Oral Tablet [facility]ONE[place] ([facility]) Sucralfate 1000 MG Oral Tablet sucralfat e 1 gram tablet TAKE ONE TABLET BY MOUTH FOUR TIMES A DAY NEEDED sucralfate 1 gram tablet TAKE ONE TABLET BY MOUTH FOUR TIMES A DAY NEEDED completed sucralfate 1000 MG Oral Tablet [place] ([facility]) 24 HR Bupropion Hydrochloride 150 MG Ext ended Release Oral Tablet bupropion HCl XL 150 mg 24 hr tablet, extended release TAKE ONE TABLET BY MOUTH EVERY MORNING WITH 300MG bupropion HCl XL 150 mg 24 hr tablet, ex tended release TAKE ONE TABLET BY MOUTH EVERY MORNING WITH 300MG completed 24 HR bupropion hydrochloride 150 MG Extended Release Oral Tablet [place] ([facility]) 0.5 ML dulaglutide 3 MG/ML Auto-Injector [Trulicity] Trulicity 1.5 mg/0.5 mL subcutaneous pen injector Trulicity 1.5 mg/0.5 mL subcutaneous pen injector completed 0.5 ML dulaglutide 3 M G/ML Auto-Injector [Trulicity] [place] ([facility]) dapagliflozin 10 MG Oral Tablet [Farxiga ] Farxiga 10 mg tablet TAKE ONE TABLET BY MOUTH EVERY DAY Farxiga 10 mg tablet TAKE ONE TABLET BY MOUTH EVERY DAY completed dapagliflozin 10 MG Or al Tablet [Farxiga] [facility]) 24 HR Bupropion Hydrochloride 150 MG Ext ended Release Oral Tablet bupropion HCl XL 150 mg 24 hr tablet, extended release TAKE ONE TABLET BY MOUTH EVERY MORNING WITH 300MG bupropion HCl XL 150 mg 24 hr tablet, ex tended release TAKE ONE TABLET BY MOUTH EVERY MORNING WITH 300MG completed 24 HR bupropion hydrochloride 150 MG Extended Release Oral Tablet [place] ([facility]) Sumatriptan 50 MG Oral Tablet sumatripta n 50 mg tablet TAKE ONE TABLET BY MOUTH TWICE A DAY NEEDED sumatriptan 50 mg tablet TAKE ONE TABLET BY MOUTH TWICE A DAY NEEDED completed sumatrip ernandez 50 MG Oral Tablet [place] ([facility]) Trulicity 3 mg/0.5 mL subcutaneous pen injector [id number] completed 0.5 ML dulaglutide 6 MG/ML Auto-Injector [Trulicity] Carmen ANDRADE ([facility]) Amoxicillin 875 MG / Clavulanate 125 MG Oral Tablet amoxicillin 875 mg-potassium clavulanate 125 mg tablet TAKE ONE TABLET BY MOUTH TWICE A DAY amoxicillin 875 mg-potassium clavulanate 125 mg tablet TAKE ONE TABLET BY MOUTH TWICE A DAY completed amoxicillin 875 MG / c lavulanate 125 MG Oral Tablet [place] ([facility]) Amoxicillin 875 MG / Clavulanate 125 MG Oral Tablet amoxicillin 875 mg-potassium clavulanate 125 mg tablet TAKE ONE TABLET BY MOUTH TWICE A DAY amoxicillin 875 mg-potassium clavulanate 125 mg tablet TAKE ONE TABLET BY MOUTH TWICE A DAY completed amoxicillin 875 MG / c lavulanate 125 MG Oral Tablet [place] ([facility]) Beclomethasone Dipropionate ([facility] [place]) Inhalation aborted Inhale into the lungs. [facility] Ciprofloxacin 500 MG Oral Tablet ciprofloxacin 500 mg tablet ciprofloxacin 500 mg tablet completed ciprofloxaci n 500 MG Oral Tablet [place] ([facility]) Amoxicillin 875 MG / Clavulanate 125 MG Oral Tablet amoxicillin 875 mg-potassium clavulanate 125 mg tablet TAKE ONE TABLET BY MOUTH TWICE A DAY amoxicillin 875 mg-potassium clavulanate 125 mg tablet TAKE ONE TABLET BY MOUTH TWICE A DAY completed amoxicillin 875 MG / c lavulanate 125 MG Oral Tablet [place] ([facility]) Sulfamethoxazole 800 MG / Trimethoprim 1 60 MG Oral Tablet sulfamethoxazole 800 mg-trimethoprim 160 mg tablet TAKE ONE TABLET BY MOUTH EVERY 12 HOURS sulfamethoxazole 800 mg-trimethoprim 160 mg tablet TAKE ONE TABLET BY MOUTH EVERY 12 HOURS completed sulfamethoxazole 800 MG / trimethoprim 160 MG Oral Tablet [facility]ONEY ([facility]) Ciprofloxacin 500 MG Oral Tablet ciprofloxacin 500 mg tablet ciprofloxacin 500 mg tablet completed ciprofloxaci n 500 MG Oral Tablet [place] ([facility]) Ranitidine 150 MG Oral Tablet ranitidine 150 mg tablet TAKE ONE TABLET BY MOUTH TWICE A DAY ranitidine 150 mg tablet TAKE ONE TABLET BY MOUTH TWICE A DAY completed ranitidine 150 MG Or al Tablet [place] ([facility]) doxycycline hyclate 100 MG Oral Capsule doxycycline hyclate 100 mg capsule TAKE ONE CAPSULE BY MOUTH TWICE A DAY doxycycline hyclate 100 mg capsule TAKE ONE CAPSULE BY MOUTH TWICE A DAY completed doxycycline hyclate 100 MG Oral Capsule [place] ([facility]) Amoxicillin 875 MG / Clavulanate 125 MG Oral Tablet amoxicillin 875 mg-potassium clavulanate 125 mg tablet TAKE ONE TABLET BY MOUTH TWICE A DAY amoxicillin 875 mg-potassium clavulanate 125 mg tablet TAKE ONE TABLET BY MOUTH TWICE A DAY completed amoxicillin 875 MG / c lavulanate 125 MG Oral Tablet [place] ([facility]) Prazosin 1 MG Oral Capsule prazosin 1 mg capsule TAKE 1 CAPSULE BY MOUTH EVERY NIGHT NEEDED FOR NIGHTMARES ASSOCIATED WITH PTSD prazosin 1 mg capsule TAKE 1 CAPSULE BY MOUTH EVERY NIGHT NEEDED FOR NIGHTMARES ASSOCIATED WITH PTSD completed prazosin 1 MG Oral Cap lora TONE[place] ([facility]) Sulfamethoxazole 800 MG / Trimethoprim 1 60 MG Oral Tablet sulfamethoxazole 800 mg-trimethoprim 160 mg tablet TAKE ONE TABLET BY MOUTH EVERY 12 HOURS sulfamethoxazole 800 mg-trimethoprim 160 mg tablet TAKE ONE TABLET BY MOUTH EVERY 12 HOURS completed sulfamethoxazole 800 MG / trimethoprim 160 MG Oral Tablet [place] ([facility]) Sulfamethoxazole 800 MG / Trimethoprim 1 60 MG Oral Tablet sulfamethoxazole 800 mg-trimethoprim 160 mg tablet TAKE ONE TABLET BY MOUTH EVERY 12 HOURS sulfamethoxazole 800 mg-trimethoprim 160 mg tablet TAKE ONE TABLET BY MOUTH EVERY 12 HOURS completed sulfamethoxazole 800 MG / trimethoprim 160 MG Oral Tablet [place] ([facility]) pantoprazole 40 MG Delayed Release Oral Tablet pantoprazole 40 mg tablet,delayed release pantoprazole 40 mg tablet,delayed release completed pantoprazole 40 MG Delayed Release Oral Tablet [place] ([facility]) pantoprazole 40 MG Delayed Release Oral Tablet pantoprazole 40 mg tablet,delayed release pantoprazole 40 mg tablet,delayed release completed pantoprazole 40 MG Delayed Release Oral Tablet [place] ([facility]) dapagliflozin 10 MG Oral Tablet [Farxiga ] Farxiga 10 mg tablet TAKE ONE TABLET BY MOUTH EVERY DAY Farxiga 10 mg tablet TAKE ONE TABLET BY MOUTH EVERY DAY completed dapagliflozin 10 MG Or al Tablet [Farxiga] [place] ([facility]) Trulicity 3 mg/0.5 mL subcutaneous pen injector [id number] completed 0.5 ML dulaglutide 6 MG/ML Auto-Injector [Trulicity] Carmen ANDRADE ([facility]) Sulfamethoxazole 800 MG / Trimethoprim 1 60 MG Oral Tablet sulfamethoxazole 800 mg-trimethoprim 160 mg tablet TAKE ONE TABLET BY MOUTH EVERY 12 HOURS sulfamethoxazole 800 mg-trimethoprim 160 mg tablet TAKE ONE TABLET BY MOUTH EVERY 12 HOURS completed sulfamethoxazole 800 MG / trimethoprim 160 MG Oral Tablet [place] ([facility]) Ondansetron 4 MG Oral Tablet ondansetron HCl 4 mg tablet TAKE ONE TABLET BY MOUTH FOUR TIMES A DAY NEEDED ondansetron HCl 4 mg tablet TAKE ONE TAB LET BY MOUTH FOUR TIMES A DAY NEEDED compl eted ondansetron 4 MG Oral Tablet [place] ([facility]) 24 HR Bupropion Hydrochloride 450 MG Ext ended Release Oral Tablet bupropion HCl XL 450 mg 24 hr tablet, extended release TAKE ONE TABLET BY MOUTH EVERY MORNING bupropion HCl XL 450 mg 24 hr tablet, extended release TAKE ONE TABLET BY MOUTH EVERY MORNING completed 24 HR bupropion hydrochloride 450 MG Extended Release Oral Tablet [place] ([facility]) Ondansetron 4 MG Oral Tablet ondansetron HCl 4 mg tablet TAKE ONE TABLET BY MOUTH FOUR TIMES A DAY NEEDED ondansetron HCl 4 mg tablet TAKE ONE TAB LET BY MOUTH FOUR TIMES A DAY NEEDED compl eted ondansetron 4 MG Oral Tablet [place] ([facility]) Ondansetron 4 MG Oral Tablet ondansetron HCl 4 mg tablet TAKE ONE TABLET BY MOUTH FOUR TIMES A DAY NEEDED ondansetron HCl 4 mg tablet TAKE ONE TAB LET BY MOUTH FOUR TIMES A DAY NEEDED compl eted ondansetron 4 MG Oral Tablet [place] ([facility]) NITROFURANTOIN, MACROCRYSTALS 25 MG / Ni trofurantoin, Monohydrate 75 MG Oral Capsule nitrofurantoin monohydrate/macrocrystals 100 mg capsule TAKE ONE CAPSULE BY MOUTH TWICE A DAY nitrofurantoin monohydrate/macrocrystals 100 mg capsule TAKE ONE CAPSULE BY MOUTH TWICE A DAY completed nitrofurantoin, macrocrystals 25 MG / nitrofurantoin, monohydrate 75 MG Oral Capsule [place] ([facility]) Ciprofloxacin 500 MG Oral Tablet ciprofloxacin 500 mg tablet ciprofloxacin 500 mg tablet completed ciprofloxaci n 500 MG Oral Tablet [place] ([facility]) venlafaxine 75 MG Oral Tablet venlafaxin e 75 mg tablet TAKE ONE TABLET BY MOUTH EVERY DAY WITH FOOD venlafaxine 75 mg tablet TAKE ONE TABLET BY MOUTH EVERY DAY WITH FOOD completed venlafaxine 75 MG Oral Tablet [place] ([facility]) Sumatriptan 50 MG Oral Tablet sumatripta n 50 mg tablet TAKE ONE TABLET BY MOUTH TWICE A DAY NEEDED sumatriptan 50 mg tablet TAKE ONE TABLET BY MOUTH TWICE A DAY NEEDED completed sumatrip ernandez 50 MG Oral Tablet [place] ([facility]) pantoprazole 40 MG Delayed Release Oral Tablet pantoprazole 40 mg tablet,delayed release pantoprazole 40 mg tablet,delayed release completed pantoprazole 40 MG Delayed Release Oral Tablet [place] ([facility]) celecoxib 100 MG Oral Capsule celecoxib 100 mg capsule celec oxib 100 mg capsule completed celecoxib 100 MG Oral Capsule [place] ([facility]) Famotidine 20 MG Oral Tablet famotidine 20 mg tablet TAKE ONE TABLET BY MOUTH EVERY DAY AT BEDTIME NEEDED famotidine 20 mg tablet TAKE ONE TABLET BY MOUTH EVERY DAY AT BEDTIME NEEDED complet ed famotidine 20 MG Oral Tablet [place] ([facility]) venlafaxine 75 MG Oral Tablet venlafaxin e 75 mg tablet TAKE ONE TABLET BY MOUTH EVERY DAY WITH FOOD venlafaxine 75 mg tablet TAKE ONE TABLET BY MOUTH EVERY DAY WITH FOOD completed venlafaxine 75 MG Oral Tablet [place] ([facility]) tramadol hydrochloride 50 MG Oral Tablet tramadol 50 m g tablet tramadol 50 mg tablet completed tramadol hydroc hloride 50 MG Oral Tablet [place] ([facility]) Trulicity 3 mg/0.5 mL subcutaneous pen injector [id number] completed 0.5 ML dulaglutide 6 MG/ML Auto-Injector [Trulicity] [facility] ([facility]) Clindamycin 150 MG Oral Capsule clindamy fortino HCl 150 mg capsule TAKE THREE CAPSULES BY MOUTH THREE TIMES A DAY clindamycin HCl 150 mg capsule TAKE THRE E CAPSULES BY MOUTH THREE TIMES A DAY co mpleted clindamycin 150 MG Oral Capsule [place] ([facility]) tramadol hydrochloride 50 MG Oral Tablet tramadol 50 m g tablet tramadol 50 mg tablet completed tramadol hydroc hloride 50 MG Oral Tablet [place] ([facility]) Ranitidine 150 MG Oral Tablet ranitidine 150 mg tablet TAKE ONE TABLET BY MOUTH TWICE A DAY ranitidine 150 mg tablet TAKE ONE TABLET BY MOUTH TWICE A DAY completed ranitidine 150 MG Or al Tablet [place] ([facility]) Ondansetron 4 MG Oral Tablet ondansetron HCl 4 mg tablet TAKE ONE TABLET BY MOUTH FOUR TIMES A DAY NEEDED ondansetron HCl 4 mg tablet TAKE ONE TAB LET BY MOUTH FOUR TIMES A DAY NEEDED compl eted ondansetron 4 MG Oral Tablet [place] ([facility]) 24 HR Bupropion Hydrochloride 450 MG Ext ended Release Oral Tablet bupropion HCl XL 450 mg 24 hr tablet, extended release TAKE ONE TABLET BY MOUTH EVERY MORNING bupropion HCl XL 450 mg 24 hr tablet, extended release TAKE ONE TABLET BY MOUTH EVERY MORNING completed 24 HR bupropion hydrochloride 450 MG Extended Release Oral Tablet [place] ([facility]) doxycycline hyclate 100 MG Oral Capsule doxycycline hyclate 100 mg capsule TAKE ONE CAPSULE BY MOUTH TWICE A DAY doxycycline hyclate 100 mg capsule TAKE ONE CAPSULE BY MOUTH TWICE A DAY completed doxycycline hyclate 100 MG Oral Capsule [place] ([facility]) Famotidine 20 MG Oral Tablet famotidine 20 mg tablet TAKE ONE TABLET BY MOUTH EVERY DAY AT BEDTIME NEEDED famotidine 20 mg tablet TAKE ONE TABLET BY MOUTH EVERY DAY AT BEDTIME NEEDED complet ed famotidine 20 MG Oral Tablet [place] ([facility]) 24 HR Bupropion Hydrochloride 150 MG Ext ended Release Oral Tablet bupropion HCl XL 150 mg 24 hr tablet, extended release TAKE ONE TABLET BY MOUTH EVERY MORNING WITH 300MG bupropion HCl XL 150 mg 24 hr tablet, ex tended release TAKE ONE TABLET BY MOUTH EVERY MORNING WITH 300MG completed 24 HR bupropion hydrochloride 150 MG Extended Release Oral Tablet [place] ([facility]) 24 HR Bupropion Hydrochloride 150 MG Ext ended Release Oral Tablet bupropion HCl XL 150 mg 24 hr tablet, extended release TAKE ONE TABLET BY MOUTH EVERY MORNING WITH 300MG bupropion HCl XL 150 mg 24 hr tablet, ex tended release TAKE ONE TABLET BY MOUTH EVERY MORNING WITH 300MG completed 24 HR bupropion hydrochloride 150 MG Extended Release Oral Tablet [place] ([facility]) nitrofurantoin 100 mg tablet Take by oral route. [id number] completed nitrofurantoin 100 mg tablet [place] ([facility]) Fluconazole 150 MG Oral Tablet fluconazo le 150 mg tablet TAKE 1 TABLET BY MOUTH ONCE fluconazole 150 mg tablet TAKE 1 TABLET BY MOUTH ONCE completed fluconazole 150 MG Oral Tablet [place] ([facility]) Famotidine 20 MG Oral Tablet famotidine 20 mg tablet TAKE ONE TABLET BY MOUTH EVERY DAY AT BEDTIME NEEDED famotidine 20 mg tablet TAKE ONE TABLET BY MOUTH EVERY DAY AT BEDTIME NEEDED complet ed famotidine 20 MG Oral Tablet [place] ([facility]) Deblitane 0.35 mg tablet TAKE ONE TABLET BY MOUTH EVERY DAY [id number] completed Deblitane 0.35 mg tablet [place] ([facility]) NITROFURANTOIN, MACROCRYSTALS 25 MG / Ni trofurantoin, Monohydrate 75 MG Oral Capsule nitrofurantoin monohydrate/macrocrystals 100 mg capsule TAKE ONE CAPSULE BY MOUTH TWICE A DAY nitrofurantoin monohydrate/macrocrystals 100 mg capsule TAKE ONE CAPSULE BY MOUTH TWICE A DAY completed nitrofurantoin, macrocrystals 25 MG / nitrofurantoin, monohydrate 75 MG Oral Capsule [place] ([facility]) Prazosin 1 MG Oral Capsule prazosin 1 mg capsule TAKE 1 CAPSULE BY MOUTH EVERY NIGHT NEEDED FOR [facility] ASSOCIATED WITH PTSD prazosin 1 mg capsule TAKE 1 CAPSULE BY MOUTH EVERY NIGHT NEEDED FOR NIGHTMARES ASSOCIATED WITH PTSD completed prazosin 1 MG Oral Cap lora [place] ([facility]) Sucralfate 1000 MG Oral Tablet sucralfat e 1 gram tablet TAKE ONE TABLET BY MOUTH FOUR TIMES A DAY NEEDED sucralfate 1 gram tablet TAKE ONE TABLET BY MOUTH FOUR TIMES A DAY NEEDED completed sucralfate 1000 MG Oral Tablet [place] ([facility]) Prazosin 1 MG Oral Capsule prazosin 1 mg capsule TAKE 1 CAPSULE BY MOUTH EVERY NIGHT NEEDED FOR NIGHTMARES ASSOCIATED WITH PTSD prazosin 1 mg capsule TAKE 1 CAPSULE BY MOUTH EVERY NIGHT NEEDED FOR NIGHTMARES ASSOCIATED WITH PTSD completed prazosin 1 MG Oral Cap lora [place] ([facility]) Prazosin 1 MG Oral Capsule prazosin 1 mg capsule TAKE 1 CAPSULE BY MOUTH EVERY NIGHT NEEDED FOR NIGHTMARES ASSOCIATED WITH PTSD prazosin 1 mg capsule TAKE 1 CAPSULE BY MOUTH EVERY NIGHT NEEDED FOR NIGHTMARES ASSOCIATED WITH PTSD completed prazosin 1 MG Oral Cap lora [place] ([facility]) Clindamycin 150 MG Oral Capsule clindamy fortino HCl 150 mg capsule TAKE THREE CAPSULES BY MOUTH THREE TIMES A DAY clindamycin HCl 150 mg capsule TAKE THRE E CAPSULES BY MOUTH THREE TIMES A DAY co mpleted clindamycin 150 MG Oral Capsule [place] ([facility]) Cephalexin 500 MG Oral Capsule cephalexin 500 mg capsu le cephalexin 500 mg capsule completed cephalexin 500 MG Oral Capsule [place] ([facility]) Sumatriptan 50 MG Oral Tablet sumatripta n 50 mg tablet TAKE ONE TABLET BY MOUTH TWICE A DAY NEEDED sumatriptan 50 mg tablet TAKE ONE TABLET BY MOUTH TWICE A DAY NEEDED completed sumatrip ernandez 50 MG Oral Tablet [place] ([facility]) Ranitidine 150 MG Oral Tablet ranitidine 150 mg tablet TAKE ONE TABLET BY MOUTH TWICE A DAY ranitidine 150 mg tablet TAKE ONE TABLET BY MOUTH TWICE A DAY completed ranitidine 150 MG Or al Tablet [place] ([facility]) Sulfamethoxazole 800 MG / Trimethoprim 1 60 MG Oral Tablet sulfamethoxazole 800 mg-trimethoprim 160 mg tablet TAKE ONE TABLET BY MOUTH EVERY 12 HOURS sulfamethoxazole 800 mg-trimethoprim 160 mg tablet TAKE ONE TABLET BY MOUTH EVERY 12 HOURS completed sulfamethoxazole 800 MG / trimethoprim 160 MG Oral Tablet [place] ([facility]) pantoprazole 40 MG Delayed Release Oral Tablet pantoprazole 40 mg tablet,delayed release pantoprazole 40 mg tablet,delayed release completed pantoprazole 40 MG Delayed Release Oral Tablet [place] ([facility]) Famotidine 20 MG Oral Tablet famotidine 20 mg tablet TAKE ONE TABLET BY MOUTH EVERY DAY AT BEDTIME NEEDED famotidine 20 mg tablet TAKE ONE TABLET BY MOUTH EVERY DAY AT BEDTIME NEEDED complet ed famotidine 20 MG Oral Tablet [place] ([facility]) Prazosin 1 MG Oral Capsule prazosin 1 mg capsule TAKE 1 CAPSULE BY MOUTH EVERY NIGHT NEEDED FOR NIGHTMARES ASSOCIATED WITH PTSD prazosin 1 mg capsule TAKE 1 CAPSULE BY MOUTH EVERY NIGHT NEEDED FOR NIGHTMARES ASSOCIATED WITH PTSD completed prazosin 1 MG Oral Cap lora [place] ([facility]) Clonidine Hydrochloride 0.1 MG Oral Tabl et clonidine HCl 0.1 mg tablet TAKE ONE TABLET BY MOUTH TWICE A DAY clonidine HCl 0.1 mg tablet TAKE ONE TAB LET BY MOUTH TWICE A DAY completed c lonidine hydrochloride 0.1 MG Oral Tablet [facility] ([facility]) Sucralfate 1000 MG Oral Tablet sucralfat e 1 gram tablet TAKE ONE TABLET BY MOUTH FOUR TIMES A DAY NEEDED sucralfate 1 gram tablet TAKE ONE TABLET BY MOUTH FOUR TIMES A DAY NEEDED completed sucralfate 1000 MG Oral Tablet [place] ([facility]) Sumatriptan 50 MG Oral Tablet sumatripta n 50 mg tablet TAKE ONE TABLET BY MOUTH TWICE A DAY NEEDED sumatriptan 50 mg tablet TAKE ONE TABLET BY MOUTH TWICE A DAY NEEDED completed sumatrip ernandez 50 MG Oral Tablet [place] ([facility]) Amoxicillin 875 MG / Clavulanate 125 MG Oral Tablet amoxicillin 875 mg-potassium clavulanate 125 mg tablet TAKE ONE TABLET BY MOUTH TWICE A DAY amoxicillin 875 mg-potassium clavulanate 125 mg tablet TAKE ONE TABLET BY MOUTH TWICE A DAY completed amoxicillin 875 MG / c lavulanate 125 MG Oral Tablet [place] ([facility]) Ondansetron 8 MG Disintegrating Oral Tab let ondansetron 8 mg disintegrating tablet DISSOLVE 1 TABLET UNDER THE TONGUE TWO TIMES A DAY ondansetron 8 mg disintegrating tablet DISSOLVE 1 TABLET UNDER THE TONGUE TWO TIMES A DAY completed ondansetron 8 MG Dis integrating Oral Tablet [place] ([facility]) tramadol hydrochloride 50 MG Oral Tablet tramadol 50 m g tablet tramadol 50 mg tablet completed tramadol hydroc hloride 50 MG Oral Tablet [place] ([facility]) nitrofurantoin 100 mg tablet Take by oral route. [id number] completed nitrofurantoin 100 mg tablet [facility] ([facility]) Clindamycin 150 MG Oral Capsule clindamy fortino HCl 150 mg capsule TAKE THREE CAPSULES BY MOUTH THREE TIMES A DAY clindamycin HCl 150 mg capsule TAKE THRE E CAPSULES BY MOUTH THREE TIMES A DAY co mpleted clindamycin 150 MG Oral Capsule [place] ([facility]) Fluconazole 150 MG Oral Tablet fluconazo le 150 mg tablet TAKE 1 TABLET BY MOUTH ONCE fluconazole 150 mg tablet TAKE 1 TABLET BY MOUTH ONCE completed fluconazole 150 MG Oral Tablet [facility] ([facility]) dapagliflozin 10 MG Oral Tablet [Farxiga ] Farxiga 10 mg tablet TAKE ONE TABLET BY MOUTH EVERY DAY Farxiga 10 mg tablet TAKE ONE TABLET BY MOUTH EVERY DAY completed dapagliflozin 10 MG Or al Tablet [Farxiga] [place] ([facility]) Ranitidine 150 MG Oral Tablet ranitidine 150 mg tablet TAKE ONE TABLET BY MOUTH TWICE A DAY ranitidine 150 mg tablet TAKE ONE TABLET BY MOUTH TWICE A DAY completed ranitidine 150 MG Or al Tablet [place] ([facility]) Clindamycin 150 MG Oral Capsule clindamy fortino HCl 150 mg capsule TAKE THREE CAPSULES BY MOUTH THREE TIMES A DAY clindamycin HCl 150 mg capsule TAKE THRE E CAPSULES BY MOUTH THREE TIMES A DAY co mpleted clindamycin 150 MG Oral Capsule [place] ([facility]) Amoxicillin 875 MG / Clavulanate 125 MG Oral Tablet amoxicillin 875 mg-potassium clavulanate 125 mg tablet TAKE ONE TABLET BY MOUTH TWICE A DAY amoxicillin 875 mg-potassium clavulanate 125 mg tablet TAKE ONE TABLET BY MOUTH TWICE A DAY completed amoxicillin 875 MG / c lavulanate 125 MG Oral Tablet [place] ([facility]) 24 HR Bupropion Hydrochloride 150 MG Ext ended Release Oral Tablet bupropion HCl XL 150 mg 24 hr tablet, extended release TAKE ONE TABLET BY MOUTH EVERY MORNING WITH 300MG bupropion HCl XL 150 mg 24 hr tablet, ex tended release TAKE ONE TABLET BY MOUTH EVERY MORNING WITH 300MG completed 24 HR bupropion hydrochloride 150 MG Extended Release Oral Tablet [place] ([facility]) Ranitidine 150 MG Oral Tablet ranitidine 150 mg tablet TAKE ONE TABLET BY MOUTH TWICE A DAY ranitidine 150 mg tablet TAKE ONE TABLET BY MOUTH TWICE A DAY completed ranitidine 150 MG Or al Tablet [place] ([facility]) Ranitidine 150 MG Oral Tablet ranitidine 150 mg tablet TAKE ONE TABLET BY MOUTH TWICE A DAY ranitidine 150 mg tablet TAKE ONE TABLET BY MOUTH TWICE A DAY completed ranitidine 150 MG Or al Tablet [place] ([facility]) Fluconazole 150 MG Oral Tablet fluconazo le 150 mg tablet TAKE 1 TABLET BY MOUTH ONCE fluconazole 150 mg tablet TAKE 1 TABLET BY MOUTH ONCE completed fluconazole 150 MG Oral Tablet [facility] ([facility]) Famotidine 20 MG Oral Tablet famotidine 20 mg tablet TAKE ONE TABLET BY MOUTH EVERY DAY AT BEDTIME NEEDED famotidine 20 mg tablet TAKE ONE TABLET BY MOUTH EVERY DAY AT BEDTIME NEEDED complet ed famotidine 20 MG Oral Tablet [place] ([facility]) Fluconazole 150 MG Oral Tablet fluconazo le 150 mg tablet TAKE 1 TABLET BY MOUTH ONCE fluconazole 150 mg tablet TAKE 1 TABLET BY MOUTH ONCE completed fluconazole 150 MG Oral Tablet [facility] ([facility]) Sumatriptan 50 MG Oral Tablet sumatripta n 50 mg tablet TAKE ONE TABLET BY MOUTH TWICE A DAY NEEDED sumatriptan 50 mg tablet TAKE ONE TABLET BY MOUTH TWICE A DAY NEEDED completed sumatrip ernandez 50 MG Oral Tablet [place] ([facility]) 0.5 ML dulaglutide 1.5 MG/ML Auto-Inject or [Trulicity] Trulicity 0.75 mg/0.5 mL subcutaneous pen injector INJECT 0.5ML UNDER THE SKIN ONCE WEEKLY Trulicity 0.75 mg/0.5 mL subcutaneous pen injector INJECT 0.5ML UNDER THE SKIN ONCE WEEKLY completed 0.5 ML dulaglu tide 1.5 MG/ML Auto-Injector [Trulicity] [place] ([facility]) tramadol hydrochloride 50 MG Oral Tablet tramadol 50 m g tablet tramadol 50 mg tablet completed tramadol hydroc hloride 50 MG Oral Tablet [place] ([facility]) Clonidine Hydrochloride 0.1 MG Oral Tabl et clonidine HCl 0.1 mg tablet TAKE ONE TABLET BY MOUTH TWICE A DAY clonidine HCl 0.1 mg tablet TAKE ONE TAB LET BY MOUTH TWICE A DAY completed c lonidine hydrochloride 0.1 MG Oral Tablet [place] ([facility]) Prazosin 1 MG Oral Capsule prazosin 1 mg capsule TAKE 1 CAPSULE BY MOUTH EVERY NIGHT NEEDED FOR NIGHTMARES ASSOCIATED WITH PTSD prazosin 1 mg capsule TAKE 1 CAPSULE BY MOUTH EVERY NIGHT NEEDED FOR NIGHTMARES ASSOCIATED WITH PTSD completed prazosin 1 MG Oral Cap lora [place] ([facility]) tramadol hydrochloride 50 MG Oral Tablet tramadol 50 m g tablet tramadol 50 mg tablet completed tramadol hydroc hloride 50 MG Oral Tablet [place] ([facility]) venlafaxine 75 MG Oral Tablet venlafaxin e 75 mg tablet TAKE ONE TABLET BY MOUTH EVERY DAY WITH FOOD venlafaxine 75 mg tablet TAKE ONE TABLET BY MOUTH EVERY DAY WITH FOOD completed venlafaxine 75 MG Oral Tablet [place] ([facility]) pantoprazole 40 MG Delayed Release Oral Tablet pantoprazole 40 mg tablet,delayed release pantoprazole 40 mg tablet,delayed release completed pantoprazole 40 MG Delayed Release Oral Tablet [place] ([facility]) Clindamycin 150 MG Oral Capsule clindamy fortino HCl 150 mg capsule TAKE THREE CAPSULES BY MOUTH THREE TIMES A DAY clindamycin HCl 150 mg capsule TAKE THRE E CAPSULES BY MOUTH THREE TIMES A DAY co mpleted clindamycin 150 MG Oral Capsule [place] ([facility]) Prazosin 1 MG Oral Capsule prazosin 1 mg capsule TAKE 1 CAPSULE BY MOUTH EVERY NIGHT NEEDED FOR NIGHTMARES ASSOCIATED WITH PTSD prazosin 1 mg capsule TAKE 1 CAPSULE BY MOUTH EVERY NIGHT NEEDED FOR NIGHTMARES ASSOCIATED WITH PTSD completed prazosin 1 MG Oral Cap lora [place] ([facility]) 0.5 ML dulaglutide 1.5 MG/ML Auto-Inject or [Trulicity] Trulicity 0.75 mg/0.5 mL subcutaneous pen injector INJECT 0.5ML UNDER THE SKIN ONCE WEEKLY Trulicity 0.75 mg/0.5 mL subcutaneous pen injector INJECT 0.5ML UNDER THE SKIN ONCE WEEKLY completed 0.5 ML dulaglu tide 1.5 MG/ML Auto-Injector [Trulicity] [place] ([facility]) Sulfamethoxazole 800 MG / Trimethoprim 1 60 MG Oral Tablet sulfamethoxazole 800 mg-trimethoprim 160 mg tablet TAKE ONE TABLET BY MOUTH EVERY 12 HOURS sulfamethoxazole 800 mg-trimethoprim 160 mg tablet TAKE ONE TABLET BY MOUTH EVERY 12 HOURS completed sulfamethoxazole 800 MG / trimethoprim 160 MG Oral Tablet [place] ([facility]) Ranitidine 150 MG Oral Tablet ranitidine 150 mg tablet TAKE ONE TABLET BY MOUTH TWICE A DAY ranitidine 150 mg tablet TAKE ONE TABLET BY MOUTH TWICE A DAY completed ranitidine 150 MG Or al Tablet [place] ([facility]) venlafaxine 75 MG Oral Tablet venlafaxin e 75 mg tablet TAKE ONE TABLET BY MOUTH EVERY DAY WITH FOOD venlafaxine 75 mg tablet TAKE ONE TABLET BY MOUTH EVERY DAY WITH FOOD completed venlafaxine 75 MG Oral Tablet [place] ([facility]) Fluconazole 150 MG Oral Tablet fluconazo le 150 mg tablet TAKE 1 TABLET BY MOUTH ONCE fluconazole 150 mg tablet TAKE 1 TABLET BY MOUTH ONCE completed fluconazole 150 MG Oral Tablet [facility] [place] ([facility]) Amoxicillin 875 MG / Clavulanate 125 MG Oral Tablet amoxicillin 875 mg-potassium clavulanate 125 mg tablet TAKE ONE TABLET BY MOUTH TWICE A DAY amoxicillin 875 mg-potassium clavulanate 125 mg tablet TAKE ONE TABLET BY MOUTH TWICE A DAY completed amoxicillin 875 MG / c lavulanate 125 MG Oral Tablet [place] ([facility]) Deblitane 0.35 mg tablet TAKE ONE TABLET BY MOUTH EVERY DAY [id number] completed Deblitane 0.35 mg tablet [place] ([facility]) Sumatriptan 50 MG Oral Tablet sumatripta n 50 mg tablet TAKE ONE TABLET BY MOUTH TWICE A DAY NEEDED sumatriptan 50 mg tablet TAKE ONE TABLET BY MOUTH TWICE A DAY NEEDED completed sumatrip ernandez 50 MG Oral Tablet [place] ([facility]) Clindamycin 150 MG Oral Capsule clindamy fortino HCl 150 mg capsule TAKE THREE CAPSULES BY MOUTH THREE TIMES A DAY clindamycin HCl 150 mg capsule TAKE THRE E CAPSULES BY MOUTH THREE TIMES A DAY co mpleted clindamycin 150 MG Oral Capsule [place] ([facility]) Prazosin 1 MG Oral Capsule prazosin 1 mg capsule TAKE 1 CAPSULE BY MOUTH EVERY NIGHT NEEDED FOR NIGHTMARES ASSOCIATED WITH PTSD prazosin 1 mg capsule TAKE 1 CAPSULE BY MOUTH EVERY NIGHT NEEDED FOR NIGHTMARES ASSOCIATED WITH PTSD completed prazosin 1 MG Oral Cap lora [place] ([facility]) Ondansetron 4 MG Oral Tablet ondansetron HCl 4 mg tablet TAKE ONE TABLET BY MOUTH FOUR TIMES A DAY NEEDED ondansetron HCl 4 mg tablet TAKE ONE TAB LET BY MOUTH FOUR TIMES A DAY NEEDED compl eted ondansetron 4 MG Oral Tablet [place] ([facility]) dapagliflozin 10 MG Oral Tablet [Farxiga ] Farxiga 10 mg tablet TAKE ONE TABLET BY MOUTH EVERY DAY Farxiga 10 mg tablet TAKE ONE TABLET BY MOUTH EVERY DAY completed dapagliflozin 10 MG Or al Tablet [Farxiga] [facility] ([facility]) Cephalexin 500 MG Oral Capsule cephalexin 500 mg capsu le cephalexin 500 mg capsule completed cephalexin 500 MG Oral Capsule [facility] ([facility]) 24 HR Bupropion Hydrochloride 450 MG Ext ended Release Oral Tablet bupropion HCl XL 450 mg 24 hr tablet, extended release TAKE ONE TABLET BY MOUTH EVERY MORNING bupropion HCl XL 450 mg 24 hr tablet, extended release TAKE ONE TABLET BY MOUTH EVERY MORNING completed 24 HR bupropion hydrochloride 450 MG Extended Release Oral Tablet [facility] ([facility]) celecoxib 100 MG Oral Capsule celecoxib 100 mg capsule celec oxib 100 mg capsule completed celecoxib 100 MG Oral Capsule [place] ([facility]) Sulfamethoxazole 800 MG / Trimethoprim 1 60 MG Oral Tablet sulfamethoxazole 800 mg-trimethoprim 160 mg tablet TAKE ONE TABLET BY MOUTH EVERY 12 HOURS sulfamethoxazole 800 mg-trimethoprim 160 mg tablet TAKE ONE TABLET BY MOUTH EVERY 12 HOURS completed sulfamethoxazole 800 MG / trimethoprim 160 MG Oral Tablet [facility] ([facility]) 24 HR Bupropion Hydrochloride 450 MG Ext ended Release Oral Tablet bupropion HCl XL 450 mg 24 hr tablet, extended release TAKE ONE TABLET BY MOUTH EVERY MORNING bupropion HCl XL 450 mg 24 hr tablet, extended release TAKE ONE TABLET BY MOUTH EVERY MORNING completed 24 HR bupropion hydrochloride 450 MG Extended Release Oral Tablet [place] ([facility]) 0.5 ML dulaglutide 3 MG/ML Auto-Injector [Trulicity] Trulicity 1.5 mg/0.5 mL subcutaneous pen injector Trulicity 1.5 mg/0.5 mL subcutaneous pen injector completed 0.5 ML dulaglutide 3 M G/ML Auto-Injector [Trulicity] [place] ([facility]) Deblitane 0.35 mg tablet TAKE ONE TABLET BY MOUTH EVERY DAY [id number] completed Deblitane 0.35 mg tablet [place] ([facility]) Fluconazole 150 MG Oral Tablet fluconazo le 150 mg tablet TAKE 1 TABLET BY MOUTH ONCE fluconazole 150 mg tablet TAKE 1 TABLET BY MOUTH ONCE completed fluconazole 150 MG Oral Tablet [facility] ([facility]) Sumatriptan 50 MG Oral Tablet sumatripta n 50 mg tablet TAKE ONE TABLET BY MOUTH TWICE A DAY NEEDED sumatriptan 50 mg tablet TAKE ONE TABLET BY MOUTH TWICE A DAY NEEDED completed sumatrip ernandez 50 MG Oral Tablet [facility] ([facility]) Clonidine Hydrochloride 0.1 MG Oral Tabl et clonidine HCl 0.1 mg tablet TAKE ONE TABLET BY MOUTH TWICE A DAY clonidine HCl 0.1 mg tablet TAKE ONE TAB LET BY MOUTH TWICE A DAY completed c lonidine hydrochloride 0.1 MG Oral Tablet [facility] ([facility]) Deblitane 0.35 mg tablet TAKE ONE TABLET BY MOUTH EVERY DAY [id number] completed Deblitane 0.35 mg tablet [place] ([facility]) 0.5 ML dulaglutide 3 MG/ML Auto-Injector [Trulicity] Trulicity 1.5 mg/0.5 mL subcutaneous pen injector Trulicity 1.5 mg/0.5 mL subcutaneous pen injector completed 0.5 ML dulaglutide 3 M G/ML Auto-Injector [Trulicity] [place] ([facility]) 24 HR Bupropion Hydrochloride 450 MG Ext ended Release Oral Tablet bupropion HCl XL 450 mg 24 hr tablet, extended release TAKE ONE TABLET BY MOUTH EVERY MORNING bupropion HCl XL 450 mg 24 hr tablet, extended release TAKE ONE TABLET BY MOUTH EVERY MORNING completed 24 HR bupropion hydrochloride 450 MG Extended Release Oral Tablet [place] ([facility]) Prazosin 1 MG Oral Capsule prazosin 1 mg capsule TAKE 1 CAPSULE BY MOUTH EVERY NIGHT NEEDED FOR NIGHTMARES ASSOCIATED WITH PTSD prazosin 1 mg capsule TAKE 1 CAPSULE BY MOUTH EVERY NIGHT NEEDED FOR NIGHTMARES ASSOCIATED WITH PTSD completed prazosin 1 MG Oral Cap lora [facility] ([facility]) venlafaxine 75 MG Oral Tablet venlafaxin e 75 mg tablet TAKE ONE TABLET BY MOUTH EVERY DAY WITH FOOD venlafaxine 75 mg tablet TAKE ONE TABLET BY MOUTH EVERY DAY WITH FOOD completed venlafaxine 75 MG Oral Tablet [place] ([facility]) Clindamycin 150 MG Oral Capsule clindamy fortino HCl 150 mg capsule TAKE THREE CAPSULES BY MOUTH THREE TIMES A DAY clindamycin HCl 150 mg capsule TAKE THRE E CAPSULES BY MOUTH THREE TIMES A DAY co mpleted clindamycin 150 MG Oral Capsule [facility] ([facility]) Ondansetron 8 MG Disintegrating Oral Tab let ondansetron 8 mg disintegrating tablet DISSOLVE 1 TABLET UNDER THE TONGUE TWO TIMES A DAY ondansetron 8 mg disintegrating tablet DISSOLVE 1 TABLET UNDER THE TONGUE TWO TIMES A DAY completed ondansetron 8 MG Dis integrating Oral Tablet [facility] ([facility]) doxycycline hyclate 100 MG Oral Capsule doxycycline hyclate 100 mg capsule TAKE ONE CAPSULE BY MOUTH TWICE A DAY doxycycline hyclate 100 mg capsule TAKE ONE CAPSULE BY MOUTH TWICE A DAY completed doxycycline hyclate 100 MG Oral Capsule [facility] ([facility]) venlafaxine 75 MG Oral Tablet venlafaxin e 75 mg tablet TAKE ONE TABLET BY MOUTH EVERY DAY WITH FOOD venlafaxine 75 mg tablet TAKE ONE TABLET BY MOUTH EVERY DAY WITH FOOD completed venlafaxine 75 MG Oral Tablet [place] ([facility]) Prazosin 1 MG Oral Capsule prazosin 1 mg capsule TAKE 1 CAPSULE BY MOUTH EVERY NIGHT NEEDED FOR NIGHTMARES ASSOCIATED WITH PTSD prazosin 1 mg capsule TAKE 1 CAPSULE BY MOUTH EVERY NIGHT NEEDED FOR NIGHTMARES ASSOCIATED WITH PTSD completed prazosin 1 MG Oral Cap lora [facility] ([facility]) tramadol hydrochloride 50 MG Oral Tablet tramadol 50 m g tablet tramadol 50 mg tablet completed tramadol hydroc hloride 50 MG Oral Tablet [place] ([facility]) pantoprazole 40 MG Delayed Release Oral Tablet pantoprazole 40 mg tablet,delayed release pantoprazole 40 mg tablet,delayed release completed pantoprazole 40 MG Delayed Release Oral Tablet [place] ([facility]) dapagliflozin 10 MG Oral Tablet [Farxiga ] Farxiga 10 mg tablet TAKE ONE TABLET BY MOUTH EVERY DAY Farxiga 10 mg tablet TAKE ONE TABLET BY MOUTH EVERY DAY completed dapagliflozin 10 MG Or al Tablet [Farxiga] [facility] ([facility]) 24 HR Bupropion Hydrochloride 150 MG Ext ended Release Oral Tablet bupropion HCl XL 150 mg 24 hr tablet, extended release TAKE ONE TABLET BY MOUTH EVERY MORNING WITH 300MG bupropion HCl XL 150 mg 24 hr tablet, ex tended release TAKE ONE TABLET BY MOUTH EVERY MORNING WITH 300MG completed 24 HR bupropion hydrochloride 150 MG Extended Release Oral Tablet [place] ([facility]) Ibuprofen 200 MG Oral Capsule ibuprofen 200 mg capsule Take 1 capsule every 6 hours by oral route. ibuprofen 200 mg capsule Take 1 capsule every 6 hours by oral route. 1 capsule(s) completed ibu profen 200 MG Oral Capsule [facility] ([facility]) Ondansetron 4 MG Oral Tablet ondansetron HCl 4 mg tablet TAKE ONE TABLET BY MOUTH FOUR TIMES A DAY NEEDED ondansetron HCl 4 mg tablet TAKE ONE TAB LET BY MOUTH FOUR TIMES A DAY NEEDED compl eted ondansetron 4 MG Oral Tablet [facility] ([facility]) Amoxicillin 875 MG / Clavulanate 125 MG Oral Tablet amoxicillin 875 mg-potassium clavulanate 125 mg tablet TAKE ONE TABLET BY MOUTH TWICE A DAY amoxicillin 875 mg-potassium clavulanate 125 mg tablet TAKE ONE TABLET BY MOUTH TWICE A DAY completed amoxicillin 875 MG / c lavulanate 125 MG Oral Tablet [facility] ([facility]) Prazosin 1 MG Oral Capsule prazosin 1 mg capsule TAKE 1 CAPSULE BY MOUTH EVERY NIGHT NEEDED FOR NIGHTMARES ASSOCIATED WITH PTSD prazosin 1 mg capsule TAKE 1 CAPSULE BY MOUTH EVERY NIGHT NEEDED FOR NIGHTMARES ASSOCIATED WITH PTSD completed prazosin 1 MG Oral Cap lora [facility] ([facility]) Ciprofloxacin 500 MG Oral Tablet ciprofloxacin 500 mg tablet ciprofloxacin 500 mg tablet completed ciprofloxaci n 500 MG Oral Tablet [facility] ([facility]) Famotidine 20 MG Oral Tablet famotidine 20 mg tablet TAKE ONE TABLET BY MOUTH EVERY DAY AT BEDTIME NEEDED famotidine 20 mg tablet TAKE ONE TABLET BY MOUTH EVERY DAY AT BEDTIME NEEDED complet ed famotidine 20 MG Oral Tablet [facility] ([facility]) Prazosin 1 MG Oral Capsule prazosin 1 mg capsule TAKE 1 CAPSULE BY MOUTH EVERY NIGHT NEEDED FOR NIGHTMARES ASSOCIATED WITH PTSD prazosin 1 mg capsule TAKE 1 CAPSULE BY MOUTH EVERY NIGHT NEEDED FOR NIGHTMARES ASSOCIATED WITH PTSD completed prazosin 1 MG Oral Cap lora [facility] ([facility]) pantoprazole 40 MG Delayed Release Oral Tablet pantoprazole 40 mg tablet,delayed release pantoprazole 40 mg tablet,delayed release completed pantoprazole 40 MG Delayed Release Oral Tablet [facility] ([facility]) Ondansetron 4 MG Oral Tablet ondansetron HCl 4 mg tablet TAKE ONE TABLET BY MOUTH FOUR TIMES A DAY NEEDED ondansetron HCl 4 mg tablet TAKE ONE TAB LET BY MOUTH FOUR TIMES A DAY NEEDED compl eted ondansetron 4 MG Oral Tablet [facility] ([facility]) doxycycline hyclate 100 MG Oral Capsule doxycycline hyclate 100 mg capsule TAKE ONE CAPSULE BY MOUTH TWICE A DAY doxycycline hyclate 100 mg capsule TAKE ONE CAPSULE BY MOUTH TWICE A DAY completed doxycycline hyclate 100 MG Oral Capsule [facility] ([facility]) dapagliflozin 10 MG Oral Tablet [Farxiga ] Farxiga 10 mg tablet TAKE ONE TABLET BY MOUTH EVERY DAY Farxiga 10 mg tablet TAKE ONE TABLET BY MOUTH EVERY DAY completed dapagliflozin 10 MG Or al Tablet [Farxiga] [place] ([facility]) Sulfamethoxazole 800 MG / Trimethoprim 1 60 MG Oral Tablet sulfamethoxazole 800 mg-trimethoprim 160 mg tablet TAKE ONE TABLET BY MOUTH EVERY 12 HOURS sulfamethoxazole 800 mg-trimethoprim 160 mg tablet TAKE ONE TABLET BY MOUTH EVERY 12 HOURS completed sulfamethoxazole 800 MG / trimethoprim 160 MG Oral Tablet [facility] ([facility]) nitrofurantoin 100 mg tablet Take by oral route. [id number] completed nitrofurantoin 100 mg tablet [facility] ([facility]) Sulfamethoxazole 800 MG / Trimethoprim 1 60 MG Oral Tablet sulfamethoxazole 800 mg-trimethoprim 160 mg tablet TAKE ONE TABLET BY MOUTH EVERY 12 HOURS sulfamethoxazole 800 mg-trimethoprim 160 mg tablet TAKE ONE TABLET BY MOUTH EVERY 12 HOURS completed sulfamethoxazole 800 MG / trimethoprim 160 MG Oral Tablet [facility] ([facility]) 24 HR Bupropion Hydrochloride 150 MG Ext ended Release Oral Tablet bupropion HCl XL 150 mg 24 hr tablet, extended release TAKE ONE TABLET BY MOUTH EVERY MORNING WITH 300MG bupropion HCl XL 150 mg 24 hr tablet, ex tended release TAKE ONE TABLET BY MOUTH EVERY MORNING WITH 300MG completed 24 HR bupropion hydrochloride 150 MG Extended Release Oral Tablet [facility] ([facility]) Ondansetron 4 MG Oral Tablet ondansetron HCl 4 mg tablet TAKE ONE TABLET BY MOUTH FOUR TIMES A DAY NEEDED ondansetron HCl 4 mg tablet TAKE ONE TAB LET BY MOUTH FOUR TIMES A DAY NEEDED compl eted ondansetron 4 MG Oral Tablet [facility] ([facility]) 0.5 ML dulaglutide 1.5 MG/ML Auto-Inject or [Trulicity] Trulicity 0.75 mg/0.5 mL subcutaneous pen injector INJECT 0.5ML UNDER THE SKIN ONCE WEEKLY Trulicity 0.75 mg/0.5 mL subcutaneous pen injector INJECT 0.5ML UNDER THE SKIN ONCE WEEKLY completed 0.5 ML dulaglu tide 1.5 MG/ML Auto-Injector [Trulicity] [facility]) Clonidine Hydrochloride 0.1 MG Oral Tabl et clonidine HCl 0.1 mg tablet TAKE ONE TABLET BY MOUTH TWICE A DAY clonidine HCl 0.1 mg tablet TAKE ONE TAB LET BY MOUTH TWICE A DAY completed c lonidine hydrochloride 0.1 MG Oral Tablet [facility]) pantoprazole 40 MG Delayed Release Oral Tablet pantoprazole 40 mg tablet,delayed release pantoprazole 40 mg tablet,delayed release completed pantoprazole 40 MG Delayed Release Oral Tablet [place] ([facility]) venlafaxine 75 MG Oral Tablet venlafaxin e 75 mg tablet TAKE ONE TABLET BY MOUTH EVERY DAY WITH FOOD venlafaxine 75 mg tablet TAKE ONE TABLET BY MOUTH EVERY DAY WITH FOOD completed venlafaxine 75 MG Oral Tablet [facility]) Ciprofloxacin 500 MG Oral Tablet ciprofloxacin 500 mg tablet ciprofloxacin 500 mg tablet completed ciprofloxaci n 500 MG Oral Tablet [facility]) venlafaxine 75 MG Oral Tablet venlafaxin e 75 mg tablet TAKE ONE TABLET BY MOUTH EVERY DAY WITH FOOD venlafaxine 75 mg tablet TAKE ONE TABLET BY MOUTH EVERY DAY WITH FOOD completed venlafaxine 75 MG Oral Tablet [facility]) dapagliflozin 10 MG Oral Tablet [Farxiga ] Farxiga 10 mg tablet TAKE ONE TABLET BY MOUTH EVERY DAY Farxiga 10 mg tablet TAKE ONE TABLET BY MOUTH EVERY DAY completed dapagliflozin 10 MG Or al Tablet [Farxiga] [facility]) Ranitidine 150 MG Oral Tablet ranitidine 150 mg tablet TAKE ONE TABLET BY MOUTH TWICE A DAY ranitidine 150 mg tablet TAKE ONE TABLET BY MOUTH TWICE A DAY completed ranitidine 150 MG Or al Tablet [facility]) venlafaxine 75 MG Oral Tablet venlafaxin e 75 mg tablet TAKE ONE TABLET BY MOUTH EVERY DAY WITH FOOD venlafaxine 75 mg tablet TAKE ONE TABLET BY MOUTH EVERY DAY WITH FOOD completed venlafaxine 75 MG Oral Tablet [facility]) 0.5 ML dulaglutide 3 MG/ML Auto-Injector [Trulicity] Trulicity 1.5 mg/0.5 mL subcutaneous pen injector INJECT ONE PEN UNDER THE SKIN ONCE WEEKLY Trulicity 1.5 mg/0.5 mL subcutaneous pen injector INJECT ONE PEN UNDER THE SKIN ONCE WEEKLY completed 0.5 ML dulaglutide 3 MG/ML Auto-Injector [Trulicity] [place] ([facility]) Sulfamethoxazole 800 MG / Trimethoprim 1 60 MG Oral Tablet sulfamethoxazole 800 mg-trimethoprim 160 mg tablet TAKE ONE TABLET BY MOUTH EVERY 12 HOURS sulfamethoxazole 800 mg-trimethoprim 160 mg tablet TAKE ONE TABLET BY MOUTH EVERY 12 HOURS completed sulfamethoxazole 800 MG / trimethoprim 160 MG Oral Tablet [place] ([facility]) Ranitidine 150 MG Oral Tablet ranitidine 150 mg tablet TAKE ONE TABLET BY MOUTH TWICE A DAY ranitidine 150 mg tablet TAKE ONE TABLET BY MOUTH TWICE A DAY completed ranitidine 150 MG Or al Tablet [place] ([facility]) Clonidine Hydrochloride 0.1 MG Oral Tabl et clonidine HCl 0.1 mg tablet TAKE ONE TABLET BY MOUTH TWICE A DAY clonidine HCl 0.1 mg tablet TAKE ONE TAB LET BY MOUTH TWICE A DAY completed c lonidine hydrochloride 0.1 MG Oral Tablet [place] ([facility]) dapagliflozin 10 MG Oral Tablet [Farxiga ] Farxiga 10 mg tablet TAKE ONE TABLET BY MOUTH EVERY DAY Farxiga 10 mg tablet TAKE ONE TABLET BY MOUTH EVERY DAY completed dapagliflozin 10 MG Or al Tablet [Farxiga] [place] ([facility]) Sucralfate 1000 MG Oral Tablet sucralfat e 1 gram tablet TAKE ONE TABLET BY MOUTH FOUR TIMES A DAY NEEDED sucralfate 1 gram tablet TAKE ONE TABLET BY MOUTH FOUR TIMES A DAY NEEDED completed sucralfate 1000 MG Oral Tablet [place] ([facility]) Famotidine 20 MG Oral Tablet famotidine 20 mg tablet TAKE ONE TABLET BY MOUTH EVERY DAY AT BEDTIME NEEDED famotidine 20 mg tablet TAKE ONE TABLET BY MOUTH EVERY DAY AT BEDTIME NEEDED complet ed famotidine 20 MG Oral Tablet [place] ([facility]) Ondansetron 4 MG Oral Tablet ondansetron HCl 4 mg tablet TAKE ONE TABLET BY MOUTH FOUR TIMES A DAY NEEDED ondansetron HCl 4 mg tablet TAKE ONE TAB LET BY MOUTH FOUR TIMES A DAY NEEDED compl eted ondansetron 4 MG Oral Tablet [place] ([facility]) Cephalexin 500 MG Oral Capsule cephalexin 500 mg capsu le cephalexin 500 mg capsule completed cephalexin 500 MG Oral Capsule [place] ([facility]) venlafaxine 75 MG Oral Tablet venlafaxin e 75 mg tablet TAKE ONE TABLET BY MOUTH EVERY DAY WITH FOOD venlafaxine 75 mg tablet TAKE ONE TABLET BY MOUTH EVERY DAY WITH FOOD completed venlafaxine 75 MG Oral Tablet [place] ([facility]) Sulfamethoxazole 800 MG / Trimethoprim 1 60 MG Oral Tablet sulfamethoxazole 800 mg-trimethoprim 160 mg tablet TAKE ONE TABLET BY MOUTH EVERY 12 HOURS sulfamethoxazole 800 mg-trimethoprim 160 mg tablet TAKE ONE TABLET BY MOUTH EVERY 12 HOURS completed sulfamethoxazole 800 MG / trimethoprim 160 MG Oral Tablet [place] ([facility]) Clonidine Hydrochloride 0.1 MG Oral Tabl et clonidine HCl 0.1 mg tablet TAKE ONE TABLET BY MOUTH TWICE A DAY clonidine HCl 0.1 mg tablet TAKE ONE TAB LET BY MOUTH TWICE A DAY completed c lonidine hydrochloride 0.1 MG Oral Tablet [place] ([facility]) 24 HR Bupropion Hydrochloride 450 MG Ext ended Release Oral Tablet bupropion HCl XL 450 mg 24 hr tablet, extended release TAKE ONE TABLET BY MOUTH EVERY MORNING bupropion HCl XL 450 mg 24 hr tablet, extended release TAKE ONE TABLET BY MOUTH EVERY MORNING completed 24 HR bupropion hydrochloride 450 MG Extended Release Oral Tablet [place] ([facility]) Ranitidine 150 MG Oral Tablet ranitidine 150 mg tablet TAKE ONE TABLET BY MOUTH TWICE A DAY ranitidine 150 mg tablet TAKE ONE TABLET BY MOUTH TWICE A DAY completed ranitidine 150 MG Or al Tablet [place] ([facility]) 24 HR Bupropion Hydrochloride 450 MG Ext ended Release Oral Tablet bupropion HCl XL 450 mg 24 hr tablet, extended release TAKE ONE TABLET BY MOUTH EVERY MORNING bupropion HCl XL 450 mg 24 hr tablet, extended release TAKE ONE TABLET BY MOUTH EVERY MORNING completed 24 HR bupropion hydrochloride 450 MG Extended Release Oral Tablet [place] ([facility]) Ondansetron 8 MG Disintegrating Oral Tab let ondansetron 8 mg disintegrating tablet DISSOLVE 1 TABLET UNDER THE TONGUE TWO TIMES A DAY ondansetron 8 mg disintegrating tablet DISSOLVE 1 TABLET UNDER THE TONGUE TWO TIMES A DAY completed ondansetron 8 MG Dis integrating Oral Tablet [place] ([facility]) pantoprazole 40 MG Delayed Release Oral Tablet pantoprazole 40 mg tablet,delayed release pantoprazole 40 mg tablet,delayed release completed pantoprazole 40 MG Delayed Release Oral Tablet [facility] ([facility]) Clonidine Hydrochloride 0.1 MG Oral Tabl et clonidine HCl 0.1 mg tablet TAKE ONE TABLET BY MOUTH TWICE A DAY clonidine HCl 0.1 mg tablet TAKE ONE TAB LET BY MOUTH TWICE A DAY completed c lonidine hydrochloride 0.1 MG Oral Tablet [facility] ([facility]) nitrofurantoin 100 mg tablet Take by oral route. [id number] completed nitrofurantoin 100 mg tablet [place] ([facility]) doxycycline hyclate 100 MG Oral Capsule doxycycline hyclate 100 mg capsule TAKE ONE CAPSULE BY MOUTH TWICE A DAY doxycycline hyclate 100 mg capsule TAKE ONE CAPSULE BY MOUTH TWICE A DAY completed doxycycline hyclate 100 MG Oral Capsule [place] ([facility]) Insulin Glargine 100 UNT/ML Injectable S olution insulin glargine (LANTUS) 100 UNIT/ML vial insulin glargine (LANTUS) 100 UNIT/ML vial 65 U Subcutaneous aborted Inject 65 Units into the ski n [facility] tramadol hydrochloride 50 MG Oral Tablet tramadol 50 m g tablet tramadol 50 mg tablet completed tramadol hydroc hloride 50 MG Oral Tablet [facility] ([facility]) 24 HR Bupropion Hydrochloride 450 MG Ext ended Release Oral Tablet bupropion HCl XL 450 mg 24 hr tablet, extended release TAKE ONE TABLET BY MOUTH EVERY MORNING bupropion HCl XL 450 mg 24 hr tablet, extended release TAKE ONE TABLET BY MOUTH EVERY MORNING completed 24 HR bupropion hydrochloride 450 MG Extended Release Oral Tablet [place] ([facility]) nitrofurantoin 100 mg tablet Take by oral route. [id number] completed nitrofurantoin 100 mg tablet [place] ([facility]) Ondansetron 8 MG Disintegrating Oral Tab let ondansetron 8 mg disintegrating tablet DISSOLVE 1 TABLET UNDER THE TONGUE TWO TIMES A DAY ondansetron 8 mg disintegrating tablet DISSOLVE 1 TABLET UNDER THE TONGUE TWO TIMES A DAY completed ondansetron 8 MG Dis integrating Oral Tablet [place] ([facility]) Cephalexin 500 MG Oral Capsule cephalexin 500 mg capsu le cephalexin 500 mg capsule completed cephalexin 500 MG Oral Capsule [place] ([facility]) Ciprofloxacin 500 MG Oral Tablet ciprofloxacin 500 mg tablet ciprofloxacin 500 mg tablet completed ciprofloxaci n 500 MG Oral Tablet [place] ([facility]) Ciprofloxacin 500 MG Oral Tablet ciprofloxacin 500 mg tablet ciprofloxacin 500 mg tablet completed ciprofloxaci n 500 MG Oral Tablet [place] ([facility]) doxycycline hyclate 100 MG Oral Capsule doxycycline hyclate 100 mg capsule TAKE ONE CAPSULE BY MOUTH TWICE A DAY doxycycline hyclate 100 mg capsule TAKE ONE CAPSULE BY MOUTH TWICE A DAY completed doxycycline hyclate 100 MG Oral Capsule [place] ([facility]) Sucralfate 1000 MG Oral Tablet sucralfat e 1 gram tablet TAKE ONE TABLET BY MOUTH FOUR TIMES A DAY NEEDED sucralfate 1 gram tablet TAKE ONE TABLET BY MOUTH FOUR TIMES A DAY NEEDED completed sucralfate 1000 MG Oral Tablet [place] ([facility]) pantoprazole 40 MG Delayed Release Oral Tablet pantoprazole 40 mg tablet,delayed release pantoprazole 40 mg tablet,delayed release completed pantoprazole 40 MG Delayed Release Oral Tablet [place] ([facility]) dapagliflozin 10 MG Oral Tablet [Farxiga ] Farxiga 10 mg tablet TAKE ONE TABLET BY MOUTH EVERY DAY Farxiga 10 mg tablet TAKE ONE TABLET BY MOUTH EVERY DAY completed dapagliflozin 10 MG Or al Tablet [Farxiga] [place] ([facility]) celecoxib 100 MG Oral Capsule celecoxib 100 mg capsule celec oxib 100 mg capsule completed celecoxib 100 MG Oral Capsule [place] ([facility]) Cephalexin 500 MG Oral Capsule cephalexin 500 mg capsu le cephalexin 500 mg capsule completed cephalexin 500 MG Oral Capsule [place] ([facility]) pantoprazole 40 MG Delayed Release Oral Tablet pantoprazole 40 mg tablet,delayed release pantoprazole 40 mg tablet,delayed release completed pantoprazole 40 MG Delayed Release Oral Tablet [place] ([facility]) Ibuprofen 200 MG Oral Capsule ibuprofen 200 mg capsule Take 1 capsule every 6 hours by oral route. ibuprofen 200 mg capsule Take 1 capsule every 6 hours by oral route. 1 capsule(s) completed ibu profen 200 MG Oral Capsule [place] ([facility]) 24 HR Bupropion Hydrochloride 150 MG Ext ended Release Oral Tablet bupropion HCl XL 150 mg 24 hr tablet, extended release TAKE ONE TABLET BY MOUTH EVERY MORNING WITH 300MG bupropion HCl XL 150 mg 24 hr tablet, ex tended release TAKE ONE TABLET BY MOUTH EVERY MORNING WITH 300MG completed 24 HR bupropion hydrochloride 150 MG Extended Release Oral Tablet [place] ([facility]) 0.5 ML dulaglutide 1.5 MG/ML Auto-Inject or [Trulicity] [place] 0.75 mg/0.5 mL subcutaneous pen injector INJECT 0.5ML UNDER THE SKIN ONCE WEEKLY Trulicity 0.75 mg/0.5 mL subcutaneous pen injector INJECT 0.5ML UNDER THE SKIN ONCE WEEKLY completed 0.5 ML dulaglu tide 1.5 MG/ML Auto-Injector [Trulicity] [place] ([facility]) 0.5 ML dulaglutide 3 MG/ML Auto-Injector [Trulicity] Tr[place] 1.5 mg/0.5 mL subcutaneous pen injector Trulicity 1.5 mg/0.5 mL subcutaneous pen injector completed 0.5 ML dulaglutide 3 M G/ML Auto-Injector [Trulicity] [place] ([facility]) Clindamycin 150 MG Oral Capsule clindamy fortnio HCl 150 mg capsule TAKE THREE CAPSULES BY MOUTH THREE TIMES A DAY clindamycin HCl 150 mg capsule TAKE THRE E CAPSULES BY MOUTH THREE TIMES A DAY co mpleted clindamycin 150 MG Oral Capsule [place] ([facility]) Sucralfate 1000 MG Oral Tablet sucralfat e 1 gram tablet TAKE ONE TABLET BY MOUTH FOUR TIMES A DAY NEEDED sucralfate 1 gram tablet TAKE ONE TABLET BY MOUTH FOUR TIMES A DAY NEEDED completed sucralfate 1000 MG Oral Tablet [place] ([facility]) Amoxicillin 875 MG / Clavulanate 125 MG Oral Tablet amoxicillin 875 mg-potassium clavulanate 125 mg tablet TAKE ONE TABLET BY MOUTH TWICE A DAY amoxicillin 875 mg-potassium clavulanate 125 mg tablet TAKE ONE TABLET BY MOUTH TWICE A DAY completed amoxicillin 875 MG / c lavulanate 125 MG Oral Tablet [place] ([facility]) doxycycline hyclate 100 MG Oral Capsule doxycycline hyclate 100 mg capsule TAKE ONE CAPSULE BY MOUTH TWICE A DAY doxycycline hyclate 100 mg capsule TAKE ONE CAPSULE BY MOUTH TWICE A DAY completed doxycycline hyclate 100 MG Oral Capsule [place] ([facility]) Clonidine Hydrochloride 0.1 MG Oral Tabl et clonidine HCl 0.1 mg tablet TAKE ONE TABLET BY MOUTH TWICE A DAY clonidine HCl 0.1 mg tablet TAKE ONE TAB LET BY MOUTH TWICE A DAY completed c lonidine hydrochloride 0.1 MG Oral Tablet [place] ([facility]) 0.5 ML dulaglutide 3 MG/ML Auto-Injector [Trulicity] Trulicity 1.5 mg/0.5 mL subcutaneous pen injector Trulicity 1.5 mg/0.5 mL subcutaneous pen injector completed 0.5 ML dulaglutide 3 M G/ML Auto-Injector [Trulicity] [place] ([facility]) dapagliflozin 10 MG Oral Tablet [Farxiga ] Farxiga 10 mg tablet TAKE ONE TABLET BY MOUTH EVERY DAY Farxiga 10 mg tablet TAKE ONE TABLET BY MOUTH EVERY DAY completed dapagliflozin 10 MG Or al Tablet [Farxiga] [facility] ([facility]) Insurance Providers Payer name Policy type / Coverage type Policy ID Covered constitution party ID Covered constitution party's relationship to garcia Policy [place] Plan Information [place] [id number] Self [id number] [place] [id number] Self [id number] [place] [id number] Self 1 [id number] [place] [id number] Self [id number] [place] [id number] Self 1 [id number] [place] [id number] Self [id number] MEDICARE A [id number] Self [id number] [place] [id number] 2.0.1.648539.3.227.99.991.40072.0 Self [id number] [place] Primary [id number] [place] Primary [id number] 2.0.1.084365.3.227.99.991.72784.0 Self 1 [id number] [place] Primary [id number] 2.0.1.533541.3.227.99.991.38840.0 Self 1 [id number] [place] [id number] MRN.991.[id number] Self [id number] [place] Primary [id number] 2.0.1.570406.3.227.99.991.63261.0 Self 1 [id number] [place] Primary [id number] 2.0.1.451760.3.227.99.991.53530.0 Self 1 [id number] MEDICARE A [id number] Self [id number] [facility] [id number] Self Medicaid [place] Medigap Part B [id number] MRN.991.[id number] Self [id number] MEDICAID [id number] Self [id number] Medco Medicare Prescreption Plan [id number] Medicaid [id number] [facility] Dual Plan Commercial ..1.235392.3.227.99.936 .17807.0 Self Uhc Medicare Advantage Medigap Part B [id number] MRN.[id number] Self [id number] UHC UNITED MEDICARE DUAL G [id number] Self [id number] [facility] Medicare Advantage [place] Dual Complete 2..1.666160.3.227.99.991.49367.0 Self N Y Dual Complete [facility] [id number] SP [id number] [facility] Other [id number] Self [facility] Community Plan Medigap Part B [id number] MRN.[id number] Self [id number] [facility] Plan Medigap Part B [id number].[id number] Self [id number] [facility] Plan Medigap Part B [id number] 2.0.1.923721.3.227.99.991.46996.0 Self 1 [id number] [facility] Plan Medigap Part B [id number] MRN.[id number] Self [id number] [facility] Plan Medigap Part B [id number] 2..1.302335.3.227.99.991.91075.0 Self 1 [id number] [facility] Plan Medigap Part B [id number] 2.0.1.205374.3.227.99.991.22189.0 Self 1 [id number] [facility] Plan Medigap Part B [id number] 2..1.828389.3.227.99.991.98536.0 Self 1 [id number] [facility] Plan Medigap Part B [id number] 2.0.1.883968.3.227.99.991.24744.0 Self 1 [id number] ANSI-Medicare Part B [id number] Medicare Dme Supplies Medigap Part B [id number] 2.1.811612.3.227.99.991.62872.0 Self 1 [id number] Medicare Dme Medigap Part B [id number] 2.16.840.1.820890.3.227.99 .936.89957.0 Self [id number] Medicaid Medicaid [id number] 2.16.840.1.448453.3.227.99.936.36872.0 S elf [id number] Medicare Medicare Primary [id number] 2.16.840.1.006998.3.227. 99.936.57715.0 Self [id number] Medicare Dme Supplies Medicammal Part B [id number] 2.16.840.1.976458.3.227.99.991.66853.0 Self 1 [id number] ANSI-Medicare Part B [id number] ANSI-Medicaid [id number] ANSI-Medicaid [id number] ANSI-Medicare Part B [id number] ANSI-Medicaid [id number] ANSI-Medicare Part B [id number] ANSI-Medicare Part B [id number] ANSI-Medicaid [id number] ANSI-Medicaid [id number] ANS-Medicare Part B [id number] ANS-Medicaid [id number] ANSMedicare Part B [id number] Medicare Dme [facility] Part B [id number] 2.16.840.1.878892.3.227.99 .936.46939.0 Self [id number] Medicaid Medicaid [id number] 2.16.840.1.559853.3.227.99.936.03236.0 S elf [id number] Medicare Medicare Primary [id number] 2.16.840.1.181770.3.227. 99.936.69610.0 Self [id number] ANSI-Medicaid [id number] ANSI-Medicare Part B [id number] ANSI-Medicare Part B [id number] ANSI-Medicaid [id number] Medicare Dme Medigap Part B [id number] 2.16.840.1.249697.3.227.99 .936.87222.0 Self [id number] Medicaid Medicaid [id number] 2.16.840.1.263466.3.227.99.936.57590.0 S elf [id number] Medicare Medicare Primary [id number] 2.16.840.1.032770.3.227. 99.936.99214.0 Self [id number] ANSI-Medicare Part B [id number] ANSI-Medicaid [id number] ANSI-Medicare Part B [id number] ANSI-Medicaid [id number] ANSI-Medicare Part B [id number] ANSI-Medicaid [id number] ANSI-Medicare Part B [id number] ANSI-Medicaid [id number] ANSI-Medicare Part B [id number] ANSI-Medicaid [id number] ANSI-Medicare Part B [id number] ANSI-Medicaid [id number] ANSI-Medicare Part B [id number] ANSI-Medicaid [id number] ANSI-Medicare Part B [id number] ANSI-Medicaid [id number] ANSI-Medicare Part B [id number] ANSI-Medicaid [id number] ANSI-Medicaid [id number] ANSI-Medicare Part B [id number] ANSI-Medicare Part B [id number] ANSI-Medicaid [id number] Medicaid - [facility] Jannie [id number] Medica id [id number] ID IDENTIFICATION 2.16.840.1.549638.3.929 2.16.840.1.1 77303.3.929 Other Insurance 2..840.1.535244.3.929 Medicare [id number] Medicare [id number] ANSI-Medicare Part B [id number] ANSI-Medicaid [id number] ANSI-Medicaid [id number] ANSI-Medicare Part B [id number] MEDICARE [id number] SP [id number] A ANSI-Medicaid [id number] ANSI-Medicare Part B [id number] ANSI-Medicaid [id number] ANSI-Medicare Part B [id number] ANSI-Medicare Part B [id number] ANSI-Medicaid [id number] MEDICARE C [id number] S [id number] A Medicaid [place] Medigap Part B [id number] .1.754359.3.227.99 .8646.91922.0 Self [id number] Medicare [facility] Medicare Primary [id number] 2.0.1.577640.3.227.99.8646.91230.0 Self [id number] Medicaid [facility] Other [id number] Self Medicare Dme Supplies Medigap Part B [id number] 2.16.840.1.317746.3.227.99.991.58179.0 Self 1 [id number] Medicare Dme Supplies Medigap Part B [id number] 2.16.840.1.378973.3.227.99.991.77816.0 Self 1 [id number] Medicare Dme Supplies Medigap Part B [id number] 2.16.840.1.513631.3.227.99.991.24526.0 Self 1 [id number] Medicare Dme Medigap Part B [id number] 2.16.840.1.186877.3.227.99 .936.58577.0 Self [id number] Medicaid Medicaid [id number] 2.16.840.1.114785.3.227.99.936.66566.0 S elf [id number] Medicare Medicare Primary [id number] 2.16.840.1.839936.3.227. 99.936.85475.0 Self [id number] Medicare Dme Medigap Part B [id number] 2.16.840.1.279070.3.227.99 .936.94050.0 Self [id number] Medicaid Medicaid [id number] 2.16.840.1.695281.3.227.99.936.33606.0 S elf [id number] Medicare Medicare Primary [id number] 2.16.840.1.829172.3.227. 99.936.82655.0 Self [id number] Medicare Dme Medigap Part B [id number] 2.16.840.1.465218.3.227.99 .936.88744.0 Self [id number] Medicaid Medicaid [id number] 2.16.840.1.617748.3.227.99.936.75200.0 S elf [id number] Medicare Medicare Primary [id number] 2.16.840.1.958849.3.227. 99.936.75618.0 Self [id number] Medicare Dme Medigap Part B [id number] 2.16.840.1.898006.3.227.99 .936.28684.0 Self [id number] Medicaid Medicaid [id number] 2.16.840.1.594550.3.227.99.936.53086.0 S elf [id number] Medicare Medicare Primary [id number] 2.16.840.1.610169.3.227. 99.936.94931.0 Self [id number] Medicare Dme Medigap Part B [id number] 2.16.840.1.278353.3.227.99 .936.42834.0 Self [id number] Medicaid Medicaid [id number] 2.16.840.1.130480.3.227.99.936.91703.0 S elf [id number] Medicare Medicare Primary [id number] 2.16.840.1.251712.3.227. 99.936.29664.0 Self [id number] [facility] [id number] SP [id number] [place] Medig[place] Part B [id number] 2.840.1.959830.3.227.99 .8646.08950.0 Self [id number] [facility] Health Maintenance [employer] (HMO) [id number] 2.840.1.568103.3.227.99.8646.31421.0 Self [id number] [facility](MCAID) O [id number] S [id number] MEDICAID UNAVAILABLE UNAVAILA BLE [facility] [id number] SP [id number] [employer] MCDHMO UNAVAILABLE UNAVAILABLE Medicare Dme Supplies Medigap Part B [id number] .840.1.525077.3.227.99.991.07652.0 Self 1 [id number] Medicare Dme Supplies Medigap Part B [id number] 2.0.1.703406.3.227.99.991.81517.0 Self 1 [id number] Medicare Dme Supplies Medigap Part B [id number] 2.840.1.087035.3.227.99.991.99438.0 Self 1 [id number] Medicare Dme Supplies Medigap Part B [id number] 2.16.840.1.697757.3.227.99.991.63427.0 Self 1 [id number] Medicare Medigap Part B [id number] Self Medicaid Medicaid [id number] Self Medicare Dme Medicare Primary [id number] Self Medicare Dme Supplies Medigap Part B [id number] Self [facility] [id number] S [id number] MEDICARE [id number] SP [id number] A [facility] [id number] SP [id number] [place] [id number] [place] [id number] SP [id number] D [id number] MEDICARE [id number] SP [id number] [place] [id number] SP [id number] MEDICARE C [id number] S [id number] MEDICAID M [id number] S [id number] MEDICAID [id number] SP [id number] [facility]-Medicare Part B [id number] ANS-Medicaid [id number] ANS-Medicare Part B [id number] ANS-Medicaid [id number] ANSI-Medicaid [id number] ANS-Medicare Part B [id number] ANS-Medicaid [id number] [facility] [id number] ANSMedicare Part B [id number] ANS-Medicaid [id number] Medicare Dme Supplies Medigap Part B [id number] MRN.991.[id number] Self [id number] Medicare Dme Supplies Medigap Part B [id number] MRN.[id number] Self [id number] Medicare Dme Supplies Medigap Part B [id number].[id number] Self [id number] Medicare Dme Supplies Medigap Part B [id number] MRN.[id number] Self [id number] Medicare Dme Supplies Medigap Part B [id number] MRN.991.[id number] Self [id number] ANSI-Medicaid [id number] ANSI-Medicare Part B [id number] ANSI-Medicare Part B [id number] ANSI-Medicaid [id number] ANSI-Medicaid [id number] ANSI-Medicare Part B [id number] ANSI-Medicaid [id number] ANSI-Medicare Part B [id number] ANSI-Medicare Part B [id number] ANSI-Medicaid [id number] ANSI-Medicare Part B [id number] ANSI-Medicaid [id number] [facility]-Medicaid [id number] Problems, Conditions, and Diagnoses Code Display Name Description Problem Type Effective Dates Data Source(s) Z86.69 Personal history of other di seases of the nervous system and sense organs Personal history of other diseases of the nervous syst em and sense organs Diagnosis 11/11/2020 12:47:39 PM EDT [facility] 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 Problem 02/23/2021 12:00:00 AM EST [facility] ([facility] M86.172 Acute osteomyelitis of ankle and/or foot Acute osteomyelitis of ankle and/or foot Problem 02/23/2021 12:00:00 AM EST [facility] ([facility] 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 Problem 02/24/20 12:00:00 AM EST [facility] ([facility] L03.032 Cellulitis of toe of left foot Cellulitis of toe of le ft foot Problem 02/23/2021 12:00:00 AM EST [facility] ([facility] F43.10 Post-traumatic stress disorder, unspecif ied Posttraumatic Stress Disorder (includes Posttraumatic Stress Disorder for Children 6 Years and Younger) Condition 02/03/2021 12:00:00 AM EDT [facility] ([facility]) F33.1 Major depressive disorder, recurrent, mo derate Major Depressive Disorder, Recurrent episode, Moderate Condition 02/03/2021 12:00:00 AM EDT [facility] ([facility]) F41.9 Anxiety disorder, unspecified Unspecified Anxiety Diso rder Condition 02/03/2021 12:00:00 AM EDT [facility] ([facility]) [id number] Carpal tunnel syndrome of right wrist Ca rpal Tunnel Syndrome of Right Wrist Problem 01/05/2021 12:00:00 AM EDT [facility] ([facility]) 13940227 Hyperlipidemia Hyperlipidemia Problem 01/05/2021 12:00: 00 AM EDT [facility] ([facility]) 536170171 Mild persistent asthma Mild Persistent Asthma Problem 09/01/2020 12:00:00 AM EDT [facility] ([facility]) 555773187 Mild persistent asthma Mild Persistent Asthma Problem 09/01/2020 12:00:00 AM EDT [facility] ([facility]) 502556396 Mild persistent asthma Mild Persistent Asthma Problem 09/01/2020 12:00:00 AM EDT [facility] ([facility]) 917935262 Mild persistent asthma Mild Persistent Asthma Problem 09/01/2020 12:00:00 AM EDT [facility] ([facility]) 728218402 Mild persistent asthma Mild Persistent Asthma Problem 09/01/2020 12:00:00 AM EDT [facility] ([facility]) 921435922 Mild persistent asthma Mild Persistent Asthma Problem 09/01/2020 12:00:00 AM EDT [facility] ([facility]) [id number] Mild persistent asthma Mild Persistent Asthma Problem 09/01/2020 12:00:00 AM EDT [facility] ([facility]) [id number] Mild persistent asthma Mild Persistent Asthma Problem 09/01/2020 12:00:00 AM EDT [facility] ([facility]) [id number] Mild persistent asthma Mild Persistent Asthma Problem 09/01/2020 12:00:00 AM EDT [facility] ([facility]) [id number] Mild persistent asthma Mild Persistent Asthma Problem 09/01/2020 12:00:00 AM EDT [facility] ([facility]) [id number] Mild persistent asthma Mild Persistent Asthma Problem 09/01/2020 12:00:00 AM EDT [facility] ([facility]) [id number] Mild persistent asthma Mild Persistent Asthma Problem 09/01/2020 12:00:00 AM EDT [facility] ([facility]) [id number] Mild persistent asthma Mild Persistent Asthma Problem 09/01/2020 12:00:00 AM EDT [place] ([facility]) M20.42 Hammer toe Hammer toe Problem 08/08/2020 12:0 0:00 AM EDT - 09/28/2020 12:00:[address] [facility] ([facility] [id number] Human papillomavirus deoxyri bonucleic acid test positive, high risk on cervical specimen Human Papillomavirus Deoxyribonucleic Ac id Test Positive, High Risk on Cervical Specimen Problem 07/27/2020 12:00:00 AM EDT AT [facility]) [id number] Human papillomavirus deoxyri bonucleic acid test positive, high risk on cervical specimen Human Papillomavirus Deoxyribonucleic Ac id Test Positive, High Risk on Cervical Specimen Problem 07/27/2020 12:00:00 AM EDT AT [facility]) [id number] Human papillomavirus deoxyri bonucleic acid test positive, high risk on cervical specimen Human Papillomavirus Deoxyribonucleic Ac id Test Positive, High Risk on Cervical Specimen Problem 07/27/2020 12:00:00 AM EDT AT [facility]) [id number] Human papillomavirus deoxyri bonucleic acid test positive, high risk on cervical specimen Human Papillomavirus Deoxyribonucleic Ac id Test Positive, High Risk on Cervical Specimen Problem 07/27/2020 12:00:00 AM EDT AT [facility]) [id number] Human papillomavirus deoxyri bonucleic acid test positive, high risk on cervical specimen Human Papillomavirus Deoxyribonucleic Ac id Test Positive, High Risk on Cervical Specimen Problem 07/27/2020 12:00:00 AM EDT AT [facility]) [id number] Human papillomavirus deoxyri bonucleic acid test positive, high risk on cervical specimen Human Papillomavirus Deoxyribonucleic Ac id Test Positive, High Risk on Cervical Specimen Problem 07/27/2020 12:00:00 AM EDT AT [facility]) [id number] Human papillomavirus deoxyri bonucleic acid test positive, high risk on cervical specimen Human Papillomavirus Deoxyribonucleic Ac id Test Positive, High Risk on Cervical Specimen Problem 07/27/2020 12:00:00 AM EDT AT [facility]) [id number] Human papillomavirus deoxyri bonucleic acid test positive, high risk on cervical specimen Human Papillomavirus Deoxyribonucleic Ac id Test Positive, High Risk on Cervical Specimen Problem 07/27/2020 12:00:00 AM EDT AT [facility]) [id number] Human papillomavirus deoxyri bonucleic acid test positive, high risk on cervical specimen Human Papillomavirus Deoxyribonucleic Ac id Test Positive, High Risk on Cervical Specimen Problem 07/27/2020 12:00:00 AM EDT AT [facility]) [id number] Human papillomavirus deoxyri bonucleic acid test positive, high risk on cervical specimen Human Papillomavirus Deoxyribonucleic Ac id Test Positive, High Risk on Cervical Specimen Problem 07/27/2020 12:00:00 AM EDT AT [facility]) [id number] Human papillomavirus deoxyri bonucleic acid test positive, high risk on cervical specimen Human Papillomavirus Deoxyribonucleic Ac id Test Positive, High Risk on Cervical Specimen Problem 07/27/2020 12:00:00 AM EDT AT [facility]) [id number] Human papillomavirus deoxyri bonucleic acid test positive, high risk on cervical specimen Human Papillomavirus Deoxyribonucleic Ac id Test Positive, High Risk on Cervical Specimen Problem 07/27/2020 12:00:00 AM EDT AT [facility]) [id number] Human papillomavirus deoxyri bonucleic acid test positive, high risk on cervical specimen Human Papillomavirus Deoxyribonucleic Ac id Test Positive, High Risk on Cervical Specimen Problem 07/27/2020 12:00:00 AM EDT AT [facility]) [id number] Human papillomavirus deoxyri bonucleic acid test positive, high risk on cervical specimen Human Papillomavirus Deoxyribonucleic Ac id Test Positive, High Risk on Cervical Specimen Problem 07/27/2020 12:00:00 AM EDT AT [facility]) [id number] Polycystic ovary syndrome Polycystic Ovary Syndrome Pr oblem 06/23/2020 12:00:00 AM EDT [facility]) [id number] 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 Problem 06/23/2020 12:00:00 AM EDT [facility] ([facility]) [id number] Sleep apnea Sleep Apnea Problem 06/23/2020 12:00:00 AM EDT [facility] ([facility]) [id number] Fibromyalgia Fibromyalgia Problem 06/23/2020 12:00:00 A M EDT [facility] ([facility]) [id number] Degeneration of intervertebral disc Dege neration of Intervertebral Disc Problem 06/23/2020 12:00:00 AM EDT [facility] ([facility]) [id number] Osteoarthritis Osteoarthritis Problem 06/23/2020 12:00: 00 AM EDT [facility] ([facility]) [id number] Gastroparesis syndrome Gastroparesis Syndrome Problem 06/23/2020 12:00:00 AM EDT [facility] ([facility]) [id number] Gastroesophageal reflux disease Gastroesophageal Reflux Disease Problem 06/23/2020 12:00:00 AM EDT [facility] ([facility]) [id number] Chronic obstructive lung disease Chronic Obstruc tive Lung Disease Problem 06/23/2020 12:00:00 AM EDT [facility] ([facility]) [id number] Asthma Asthma Problem 06/23/2020 12:0 0:00 AM EDT - 09/01/2020 12:00:00 AM EDT [facility] ([facility]) [id number] Migraine Migraine Problem 06/23/2020 12:00:00 AM ED T [facility] ([facility]) [id number] Polycystic ovary syndrome Polycystic Ovary Syndrome Pr oblem 06/23/2020 12:00:00 AM EDT [facility] ([facility]) [id number] 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 Problem 06/23/2020 12:00:00 AM EDT [facility] ([facility]) [id number] Sleep apnea Sleep Apnea Problem 06/23/2020 12:00:00 AM EDT [facility] ([facility]) [id number] Fibromyalgia Fibromyalgia Problem 06/23/2020 12:00:00 A M EDT [facility] ([facility]) [id number] Degeneration of intervertebral disc Dege neration of Intervertebral Disc Problem 06/23/2020 12:00:00 AM EDT [facility] ([facility]) [id number] Osteoarthritis Osteoarthritis Problem 06/23/2020 12:00: 00 AM EDT TONEY ([facility]) [id number] Gastroparesis syndrome Gastroparesis Syndrome Problem 06/23/2020 12:00:00 AM EDT TONEY ([facility]) [id number] Gastroesophageal reflux disease Gastroesophageal Reflux Disease Problem 06/23/2020 12:00:00 AM EDT TONEY ([facility]) [id number] Chronic obstructive lung disease Chronic Obstruc tive Lung Disease Problem 06/23/2020 12:00:00 AM EDT TONEY ([facility]) [id number] Asthma Asthma Problem 06/23/2020 12:0 0:00 AM EDT - 09/01/2020 12:00:00 AM EDT TONEY ([facility]) [id number] Migraine Migraine Problem 06/23/2020 12:00:00 AM ED T TONEY ([facility]) [id number] Depressive disorder Depressive Disorder Problem 0 06/23/2020 12:00:00 AM EDT TONEY ([facility]) [id number] Posttraumatic stress disorder Posttraumatic Stress Dis order Problem 06/23/2020 12:00:00 AM EDT TONEY ([facility]) [id number] Anxiety Anxiety Problem 06/23/2020 12:00:00 AM ED T TONEY ([facility]) [id number] Type 2 diabetes mellitus Type 2 Diabetes Mellitus Prob [place] 06/23/2020 12:00:00 AM EDT TONEY ([facility]) [id number] Charcot's arthropathy Charcot's Arthropathy Problem 06/23/2020 12:00:00 AM EDT TONEY ([facility]) [id number] Polycystic ovary syndrome Polycystic Ovary Syndrome Pr oblem 06/23/2020 12:00:00 AM EDT TONEY ([facility]) [id number] 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 Problem 06/23/2020 12:00:00 AM EDT TONEY ([facility]) [id number] Sleep apnea Sleep Apnea Problem 06/23/2020 12:00:00 AM EDT TONEY ([facility]) [id number] Fibromyalgia Fibromyalgia Problem 06/23/2020 12:00:00 A M EDT TONEY ([facility]) [id number] Degeneration of intervertebral disc Dege neration of Intervertebral Disc Problem 06/23/2020 12:00:00 AM EDT TONEY ([facility]) [id number] Osteoarthritis Osteoarthritis Problem 06/23/2020 12:00: 00 AM EDT TONEY ([facility]) [id number] Gastroparesis syndrome Gastroparesis Syndrome Problem 06/23/2020 12:00:00 AM EDT TONEY ([facility]) [id number] Gastroesophageal reflux disease Gastroesophageal Reflux Disease Problem 06/23/2020 12:00:00 AM EDT TONEY ([facility]) [id number] Chronic obstructive lung disease Chronic Obstruc tive Lung Disease Problem 06/23/2020 12:00:00 AM EDT TONEY ([facility]) [id number] Asthma Asthma Problem 06/23/2020 12:0 0:00 AM EDT - 09/01/2020 12:00:00 AM EDT TONEY ([facility]) [id number] Migraine Migraine Problem 06/23/2020 12:00:00 AM ED T TONEY ([facility]) [id number] Depressive disorder Depressive Disorder Problem 0 06/23/2020 12:00:00 AM EDT TONEY ([facility]) [id number] Posttraumatic stress disorder Posttraumatic Stress Dis order Problem 06/23/2020 12:00:00 AM EDT TONEY ([facility]) [id number] Anxiety Anxiety Problem 06/23/2020 12:00:00 AM ED T TONEY ([facility]) [id number] Type 2 diabetes mellitus Type 2 Diabetes Mellitus Prob [place] 06/23/2020 12:00:00 AM EDT TONEY ([facility]) [id number] Charcot's arthropathy Charcot's Arthropathy Problem 06/23/2020 12:00:00 AM EDT TONEY ([facility]) [id number] Charcot's arthropathy Charcot's Arthropathy Problem 06/23/2020 12:00:00 AM EDT TONEY ([facility]) 250835432 Polycystic ovary syndrome Polycystic Ovary Syndrome Pr oblem 06/23/2020 12:00:00 AM EDT TONEY ([facility]) [id number] 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 Problem 06/23/2020 12:00:00 AM EDT TONEY ([facility]) [id number] Sleep apnea Sleep Apnea Problem 06/23/2020 12:00:00 AM EDT TONEY ([facility]) [id number] Fibromyalgia Fibromyalgia Problem 06/23/2020 12:00:00 A M EDT TONEY ([facility]) [id number] Degeneration of intervertebral disc Dege neration of Intervertebral Disc Problem 06/23/2020 12:00:00 AM EDT TONEY ([facility]) [id number] Osteoarthritis Osteoarthritis Problem 06/23/2020 12:00: 00 AM EDT TONEY ([facility]) [id number] Gastroparesis syndrome Gastroparesis Syndrome Problem 06/23/2020 12:00:00 AM EDT TONEY ([facility]) [id number] Gastroesophageal reflux disease Gastroesophageal Reflux Disease Problem 06/23/2020 12:00:00 AM EDT TONEY ([facility]) [id number] Chronic obstructive lung disease Chronic Obstruc tive Lung Disease Problem 06/23/2020 12:00:00 AM EDT TONEY ([facility]) [id number] Asthma Asthma Problem 06/23/2020 12:0 0:00 AM EDT - 09/01/2020 12:00:00 AM EDT TONEY ([facility]) [id number] Migraine Migraine Problem 06/23/2020 12:00:00 AM ED T TONEY ([facility]) [id number] Depressive disorder Depressive Disorder Problem 0 06/23/2020 12:00:00 AM EDT TONEY ([facility]) [id number] Posttraumatic stress disorder Posttraumatic Stress Dis order Problem 06/23/2020 12:00:00 AM EDT TONEY ([facility]) [id number] Anxiety Anxiety Problem 06/23/2020 12:00:00 AM ED T TONEY ([facility]) [id number] Type 2 diabetes mellitus Type 2 Diabetes Mellitus Prob [place] 06/23/2020 12:00:00 AM EDT TONEY ([facility]) [id number] Charcot's arthropathy Charcot's Arthropathy Problem 06/23/2020 12:00:00 AM EDT TONEY ([facility]) [id number] Polycystic ovary syndrome Polycystic Ovary Syndrome Pr oblem 06/23/2020 12:00:00 AM EDT TONEY ([facility]) [id number] 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 Problem 06/23/2020 12:00:00 AM EDT TONEY ([facility]) [id number] Sleep apnea Sleep Apnea Problem 06/23/2020 12:00:00 AM EDT TONEY ([facility]) 938033407 Fibromyalgia Fibromyalgia Problem 06/23/2020 12:00:00 A M EDT OTNEY ([facility]) [id number] Degeneration of intervertebral disc Dege neration of Intervertebral Disc Problem 06/23/2020 12:00:00 AM EDT TONEY ([facility]) 931657451 Osteoarthritis Osteoarthritis Problem 06/23/2020 12:00: 00 AM EDT TONEY ([facility]) 193449190 Gastroparesis syndrome Gastroparesis Syndrome Problem 06/23/2020 12:00:00 AM EDT TONEY ([facility]) 611150240 Gastroesophageal reflux disease Gastroesophageal Reflux Disease Problem 06/23/2020 12:00:00 AM EDT TONEY ([facility]) [id number] Chronic obstructive lung disease Chronic Obstruc tive Lung Disease Problem 06/23/2020 12:00:00 AM EDT TONEY ([facility]) [id number] Asthma Asthma Problem 06/23/2020 12:0 0:00 AM EDT - 09/01/2020 12:00:00 AM EDT TONEY ([facility]) 89951141 Migraine Migraine Problem 06/23/2020 12:00:00 AM ED T TONEY ([facility]) [id number] Depressive disorder Depressive Disorder Problem 0 06/23/2020 12:00:00 AM EDT TONEY ([facility]) [id number] Posttraumatic stress disorder Posttraumatic Stress Dis order Problem 06/23/2020 12:00:00 AM EDT TONEY ([facility]) [id number] Anxiety Anxiety Problem 06/23/2020 12:00:00 AM ED T TONEY ([facility]) [id number] Type 2 diabetes mellitus Type 2 Diabetes Mellitus Prob [place] 06/23/2020 12:00:00 AM EDT TONEY ([facility]) [id number] Charcot's arthropathy Charcot's Arthropathy Problem 06/23/2020 12:00:00 AM EDT TONEY ([facility]) [id number] Depressive disorder Depressive Disorder Problem 0 06/23/2020 12:00:00 AM EDT TONEY ([facility]) 70118814 Posttraumatic stress disorder Posttraumatic Stress Dis order Problem 06/23/2020 12:00:00 AM EDT TONEY ([facility]) [id number] Anxiety Anxiety Problem 06/23/2020 12:00:00 AM ED T TONEY ([facility]) [id number] Type 2 diabetes mellitus Type 2 Diabetes Mellitus Prob [place] 06/23/2020 12:00:00 AM EDT TONEY ([facility]) 585287390 Charcot's arthropathy Charcot's Arthropathy Problem 06/23/2020 12:00:00 AM EDT TONEY ([facility]) [id number] Polycystic ovary syndrome Polycystic Ovary Syndrome Pr oblem 06/23/2020 12:00:00 AM EDT TONEY ([facility]) 378027619 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 Problem 06/23/2020 12:00:00 AM EDT TONEY ([facility]) [id number] Sleep apnea Sleep Apnea Problem 06/23/2020 12:00:00 AM EDT TONEY ([facility]) 017773492 Fibromyalgia Fibromyalgia Problem 06/23/2020 12:00:00 A M EDT TONEY ([facility]) [id number] Degeneration of intervertebral disc Dege neration of Intervertebral Disc Problem 06/23/2020 12:00:00 AM EDT TONEY ([facility]) 590289974 Osteoarthritis Osteoarthritis Problem 06/23/2020 12:00: 00 AM EDT TONEY ([facility]) 977519619 Gastroparesis syndrome Gastroparesis Syndrome Problem 06/23/2020 12:00:00 AM EDT TONEY ([facility]) [id number] Gastroesophageal reflux disease Gastroesophageal Reflux Disease Problem 06/23/2020 12:00:00 AM EDT TONEY ([facility]) [id number] Chronic obstructive lung disease Chronic Obstruc tive Lung Disease Problem 06/23/2020 12:00:00 AM EDT TONEY ([facility]) 303692505 Asthma Asthma Problem 06/23/2020 12:0 0:00 AM EDT - 09/01/2020 12:00:00 AM EDT TONEY ([facility]) [id number] Migraine Migraine Problem 06/23/2020 12:00:00 AM ED T TONEY ([facility]) [id number] Depressive disorder Depressive Disorder Problem 0 06/23/2020 12:00:00 AM EDT TONEY ([facility]) [id number] Posttraumatic stress disorder Posttraumatic Stress Dis order Problem 06/23/2020 12:00:00 AM EDT TONEY ([facility]) [id number] Anxiety Anxiety Problem 06/23/2020 12:00:00 AM ED T TONEY ([facility]) [id number] Type 2 diabetes mellitus Type 2 Diabetes Mellitus Prob [place] 06/23/2020 12:00:00 AM EDT TONEY ([facility]) [id number] Charcot's arthropathy Charcot's Arthropathy Problem 06/23/2020 12:00:00 AM EDT TONEY ([facility]) 498786696 Osteoarthritis Osteoarthritis Problem 06/23/2020 12:00: 00 AM EDT TONEY ([facility]) [id number] Gastroparesis syndrome Gastroparesis Syndrome Problem 06/23/2020 12:00:00 AM EDT TONEY ([facility]) 761235409 Gastroesophageal reflux disease Gastroesophageal Reflux Disease Problem 06/23/2020 12:00:00 AM EDT TONEY ([facility]) [id number] Chronic obstructive lung disease Chronic Obstruc tive Lung Disease Problem 06/23/2020 12:00:00 AM EDT TONEY ([facility]) [id number] Asthma Asthma Problem 06/23/2020 12:0 0:00 AM EDT - 09/01/2020 12:00:00 AM EDT TONEY ([facility]) [id number] Migraine Migraine Problem 06/23/2020 12:00:00 AM ED T OTNEY ([facility]) [id number] Depressive disorder Depressive Disorder Problem 0 06/23/2020 12:00:00 AM EDT TONEY ([facility]) [id number] Posttraumatic stress disorder Posttraumatic Stress Dis order Problem 06/23/2020 12:00:00 AM EDT TONEY ([facility]) [id number] Anxiety Anxiety Problem 06/23/2020 12:00:00 AM ED T TONEY ([facility]) [id number] Type 2 diabetes mellitus Type 2 Diabetes Mellitus Prob [place] 06/23/2020 12:00:00 AM EDT TONEY ([facility]) [id number] Charcot's arthropathy Charcot's Arthropathy Problem 06/23/2020 12:00:00 AM EDT TONEY ([facility]) [id number] Polycystic ovary syndrome Polycystic Ovary Syndrome Pr oblem 06/23/2020 12:00:00 AM EDT TONEY ([facility]) [id number] 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 Problem 06/23/2020 12:00:00 AM EDT TONEY ([facility]) [id number] Sleep apnea Sleep Apnea Problem 06/23/2020 12:00:00 AM EDT TONEY ([facility]) 143347313 Fibromyalgia Fibromyalgia Problem 06/23/2020 12:00:00 A M EDT TONEY ([facility]) [id number] Degeneration of intervertebral disc Dege neration of Intervertebral Disc Problem 06/23/2020 12:00:00 AM EDT TONEY ([facility]) 160374392 Osteoarthritis Osteoarthritis Problem 06/23/2020 12:00: 00 AM EDT TONEY ([facility]) [id number] Gastroparesis syndrome Gastroparesis Syndrome Problem 06/23/2020 12:00:00 AM EDT TONEY ([facility]) [id number] Gastroesophageal reflux disease Gastroesophageal Reflux Disease Problem 06/23/2020 12:00:00 AM EDT TONEY ([facility]) [id number] Chronic obstructive lung disease Chronic Obstruc tive Lung Disease Problem 06/23/2020 12:00:00 AM EDT TONEY ([facility]) 969932116 Asthma Asthma Problem 06/23/2020 12:0 0:00 AM EDT - 09/01/2020 12:00:00 AM EDT TONEY ([facility]) [id number] Migraine Migraine Problem 06/23/2020 12:00:00 AM ED T TONEY ([facility]) [id number] Depressive disorder Depressive Disorder Problem 0 06/23/2020 12:00:00 AM EDT TONEY ([facility]) [id number] Posttraumatic stress disorder Posttraumatic Stress Dis order Problem 06/23/2020 12:00:00 AM EDT TONEY ([facility]) [id number] Anxiety Anxiety Problem 06/23/2020 12:00:00 AM ED T TONEY ([facility]) [id number] Type 2 diabetes mellitus Type 2 Diabetes Mellitus Prob [place] 06/23/2020 12:00:00 AM EDT TONEY ([facility]) [id number] Charcot's arthropathy Charcot's Arthropathy Problem 06/23/2020 12:00:00 AM EDT TONEY ([facility]) [id number] Polycystic ovary syndrome Polycystic Ovary Syndrome Pr oblem 06/23/2020 12:00:00 AM EDT TONEY ([facility]) 783231861 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 Problem 06/23/2020 12:00:00 AM EDT TONEY ([facility]) [id number] Sleep apnea Sleep Apnea Problem 06/23/2020 12:00:00 AM EDT TONEY ([facility]) 960728884 Fibromyalgia Fibromyalgia Problem 06/23/2020 12:00:00 A M EDT TONEY ([facility]) [id number] Degeneration of intervertebral disc Dege neration of Intervertebral Disc Problem 06/23/2020 12:00:00 AM EDT TONEY ([facility]) [id number] Osteoarthritis Osteoarthritis Problem 06/23/2020 12:00: 00 AM EDT TONEY ([facility]) 286621020 Gastroparesis syndrome Gastroparesis Syndrome Problem 06/23/2020 12:00:00 AM EDT TONEY ([facility]) 132438691 Gastroesophageal reflux disease Gastroesophageal Reflux Disease Problem 06/23/2020 12:00:00 AM EDT TONEY ([facility]) [id number] Chronic obstructive lung disease Chronic Obstruc tive Lung Disease Problem 06/23/2020 12:00:00 AM EDT TONEY ([facility]) [id number] Asthma Asthma Problem 06/23/2020 12:0 0:00 AM EDT - 09/01/2020 12:00:00 AM EDT TONEY ([facility]) [id number] Migraine Migraine Problem 06/23/2020 12:00:00 AM ED T TONEY ([facility]) [id number] Depressive disorder Depressive Disorder Problem 0 06/23/2020 12:00:00 AM EDT TONEY ([facility]) [id number] Posttraumatic stress disorder Posttraumatic Stress Dis order Problem 06/23/2020 12:00:00 AM EDT TONEY ([facility]) [id number] Anxiety Anxiety Problem 06/23/2020 12:00:00 AM ED T TONEY ([facility]) [id number] Type 2 diabetes mellitus Type 2 Diabetes Mellitus Prob [place] 06/23/2020 12:00:00 AM EDT TONEY ([facility]) 309150537 Charcot's arthropathy Charcot's Arthropathy Problem 06/23/2020 12:00:00 AM EDT TONEY ([facility]) [id number] Polycystic ovary syndrome Polycystic Ovary Syndrome Pr oblem 06/23/2020 12:00:00 AM EDT TONEY ([facility]) [id number] 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 Problem 06/23/2020 12:00:00 AM EDT TONEY ([facility]) [id number] Sleep apnea Sleep Apnea Problem 06/23/2020 12:00:00 AM EDT TONEY ([facility]) 591202280 Fibromyalgia Fibromyalgia Problem 06/23/2020 12:00:00 A M EDT TONEY ([facility]) [id number] Degeneration of intervertebral disc Dege neration of Intervertebral Disc Problem 06/23/2020 12:00:00 AM EDT TONEY ([facility]) [id number] Osteoarthritis Osteoarthritis Problem 06/23/2020 12:00: 00 AM EDT TONEY ([facility]) 391285036 Gastroparesis syndrome Gastroparesis Syndrome Problem 06/23/2020 12:00:00 AM EDT TONEY ([facility]) 978644040 Gastroesophageal reflux disease Gastroesophageal Reflux Disease Problem 06/23/2020 12:00:00 AM EDT TONEY ([facility]) [id number] Chronic obstructive lung disease Chronic Obstruc tive Lung Disease Problem 06/23/2020 12:00:00 AM EDT TONEY ([facility]) 009501907 Asthma Asthma Problem 06/23/2020 12:0 0:00 AM EDT - 09/01/2020 12:00:00 AM EDT TONEY ([facility]) [id number] Migraine Migraine Problem 06/23/2020 12:00:00 AM ED T TONEY ([facility]) [id number] Depressive disorder Depressive Disorder Problem 0 06/23/2020 12:00:00 AM EDT TONEY ([facility]) [id number] Posttraumatic stress disorder Posttraumatic Stress Dis order Problem 06/23/2020 12:00:00 AM EDT TONEY ([facility]) [id number] Anxiety Anxiety Problem 06/23/2020 12:00:00 AM ED T TONEY ([facility]) [id number] Type 2 diabetes mellitus Type 2 Diabetes Mellitus Prob [place] 06/23/2020 12:00:00 AM EDT TONEY ([facility]) 365798581 Polycystic ovary syndrome Polycystic Ovary Syndrome Pr oblem 06/23/2020 12:00:00 AM EDT TONEY ([facility]) [id number] 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 Problem 06/23/2020 12:00:00 AM EDT TONEY ([facility]) 51592026 Sleep apnea Sleep Apnea Problem 06/23/2020 12:00:00 AM EDT TONEY ([facility]) 079810840 Fibromyalgia Fibromyalgia Problem 06/23/2020 12:00:00 A M EDT TONEY ([facility]) [id number] Degeneration of intervertebral disc Dege neration of Intervertebral Disc Problem 06/23/2020 12:00:00 AM EDT TONEY ([facility]) [id number] Osteoarthritis Osteoarthritis Problem 06/23/2020 12:00: 00 AM EDT TONEY ([facility]) [id number] Gastroparesis syndrome Gastroparesis Syndrome Problem 06/23/2020 12:00:00 AM EDT TONEY ([facility]) 414512807 Gastroesophageal reflux disease Gastroesophageal Reflux Disease Problem 06/23/2020 12:00:00 AM EDT TONEY ([facility]) [id number] Chronic obstructive lung disease Chronic Obstruc tive Lung Disease Problem 06/23/2020 12:00:00 AM EDT TONEY ([facility]) [id number] Polycystic ovary syndrome Polycystic Ovary Syndrome Pr oblem 06/23/2020 12:00:00 AM EDT TONEY ([facility]) 145879708 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 Problem 06/23/2020 12:00:00 AM EDT TONEY ([facility]) 45953221 Sleep apnea Sleep Apnea Problem 06/23/2020 12:00:00 AM EDT TONEY ([facility]) 149409406 Fibromyalgia Fibromyalgia Problem 06/23/2020 12:00:00 A M EDT TONEY ([facility]) [id number] Degeneration of intervertebral disc Dege neration of Intervertebral Disc Problem 06/23/2020 12:00:00 AM EDT TONEY ([facility]) 246298759 Osteoarthritis Osteoarthritis Problem 06/23/2020 12:00: 00 AM EDT TONEY ([facility]) 535735303 Gastroparesis syndrome Gastroparesis Syndrome Problem 06/23/2020 12:00:00 AM EDT TONEY ([facility]) 052709071 Gastroesophageal reflux disease Gastroesophageal Reflux Disease Problem 06/23/2020 12:00:00 AM EDT TONEY ([facility]) [id number] Chronic obstructive lung disease Chronic Obstruc tive Lung Disease Problem 06/23/2020 12:00:00 AM EDT TONEY ([facility]) 389285600 Asthma Asthma Problem 06/23/2020 12:0 0:00 AM EDT - 09/01/2020 12:00:00 AM EDT TONEY ([facility]) [id number] Migraine Migraine Problem 06/23/2020 12:00:00 AM ED T TONEY ([facility]) 78604753 Depressive disorder Depressive Disorder Problem 0 06/23/2020 12:00:00 AM EDT TONEY ([facility]) [id number] Posttraumatic stress disorder Posttraumatic Stress Dis order Problem 06/23/2020 12:00:00 AM EDT TONEY ([facility]) [id number] Anxiety Anxiety Problem 06/23/2020 12:00:00 AM ED T TONEY ([facility]) [id number] Type 2 diabetes mellitus Type 2 Diabetes Mellitus Prob [place] 06/23/2020 12:00:00 AM EDT TONEY ([facility]) 710454040 Charcot's arthropathy Charcot's Arthropathy Problem 06/23/2020 12:00:00 AM EDT TONEY ([facility]) 653796181 Polycystic ovary syndrome Polycystic Ovary Syndrome Pr oblem 06/23/2020 12:00:00 AM EDT TONEY ([facility]) [id number] 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 Problem 06/23/2020 12:00:00 AM EDT TONEY ([facility]) 18804680 Sleep apnea Sleep Apnea Problem 06/23/2020 12:00:00 AM EDT TONEY ([facility]) 258694859 Fibromyalgia Fibromyalgia Problem 06/23/2020 12:00:00 A M EDT TONEY ([facility]) 94800800 Degeneration of intervertebral disc Dege neration of Intervertebral Disc Problem 06/23/2020 12:00:00 AM EDT TONEY ([facility]) 295880517 Osteoarthritis Osteoarthritis Problem 06/23/2020 12:00: 00 AM EDT TONEY ([facility]) 062404679 Gastroparesis syndrome Gastroparesis Syndrome Problem 06/23/2020 12:00:00 AM EDT TONEY ([facility]) 947369650 Gastroesophageal reflux disease Gastroesophageal Reflux Disease Problem 06/23/2020 12:00:00 AM EDT TONEY ([facility]) 83859637 Chronic obstructive lung disease Chronic Obstruc tive Lung Disease Problem 06/23/2020 12:00:00 AM EDT TONEY ([facility]) 506217177 Asthma Asthma Problem 06/23/2020 12:0 0:00 AM EDT - 09/01/2020 12:00:00 AM EDT TONEY ([facility]) 94800371 Migraine Migraine Problem 06/23/2020 12:00:00 AM ED T TONEY ([facility]) 18722970 Depressive disorder Depressive Disorder Problem 0 06/23/2020 12:00:00 AM EDT TONEY ([facility]) 82897400 Posttraumatic stress disorder Posttraumatic Stress Dis order Problem 06/23/2020 12:00:00 AM EDT TONEY ([facility]) 21770365 Anxiety Anxiety Problem 06/23/2020 12:00:00 AM ED T TONEY ([facility]) 90150728 Type 2 diabetes mellitus Type 2 Diabetes Mellitus Prob [place] 06/23/2020 12:00:00 AM EDT TONEY ([facility]) 301186656 Charcot's arthropathy Charcot's Arthropathy Problem 06/23/2020 12:00:00 AM EDT [facility] [facility]) [id number] Polycystic ovary syndrome Polycystic Ovary Syndrome Pr oblem 06/23/2020 12:00:00 AM EDT TONEY ([facility]) [id number] 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 Problem 06/23/2020 12:00:00 AM EDT TONEY ([facility]) [id number] Sleep apnea Sleep Apnea Problem 06/23/2020 12:00:00 AM EDT TONEY ([facility]) [id number] Fibromyalgia Fibromyalgia Problem 06/23/2020 12:00:00 A M EDT TONEY ([facility]) [id number] Degeneration of intervertebral disc Dege neration of Intervertebral Disc Problem 06/23/2020 12:00:00 AM EDT TONEY ([facility]) [id number] Polycystic ovary syndrome Polycystic Ovary Syndrome Pr oblem 06/23/2020 12:00:00 AM EDT TONEY ([facility]) [id number] 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 Problem 06/23/2020 12:00:00 AM EDT TONEY ([facility]) 63792922 Sleep apnea Sleep Apnea Problem 06/23/2020 12:00:00 AM EDT TONEY ([facility]) [id number] Fibromyalgia Fibromyalgia Problem 06/23/2020 12:00:00 A M EDT TONEY ([facility]) [id number] Degeneration of intervertebral disc Dege neration of Intervertebral Disc Problem 06/23/2020 12:00:00 AM EDT TONEY ([facility]) 527993002 Osteoarthritis Osteoarthritis Problem 06/23/2020 12:00: 00 AM EDT TONEY ([facility]) 601352723 Gastroparesis syndrome Gastroparesis Syndrome Problem 06/23/2020 12:00:00 AM EDT TONEY ([facility]) [id number] Gastroesophageal reflux disease Gastroesophageal Reflux Disease Problem 06/23/2020 12:00:00 AM EDT TONEY ([facility]) 71030941 Chronic obstructive lung disease Chronic Obstruc tive Lung Disease Problem 06/23/2020 12:00:00 AM EDT TONEY ([facility]) [id number] Asthma Asthma Problem 06/23/2020 12:00:00 AM ED T TONEY ([facility]) 12676170 Migraine Migraine Problem 06/23/2020 12:00:00 AM ED T TONEY ([facility]) 40998669 Depressive disorder Depressive Disorder Problem 0 06/23/2020 12:00:00 AM EDT TONEY ([facility]) 16742912 Posttraumatic stress disorder Posttraumatic Stress Dis order Problem 06/23/2020 12:00:00 AM EDT TONEY ([facility]) 08567049 Anxiety Anxiety Problem 06/23/2020 12:00:00 AM ED T TONEY ([facility]) 67825327 Type 2 diabetes mellitus Type 2 Diabetes Mellitus Prob chelsea 06/23/2020 12:00:00 AM EDT [facility]ONEY ([facility]) [id number] Charcot's arthropathy Charcot's Arthropathy Problem 06/23/2020 12:00:00 AM EDT TONEY ([facility]) [id number] Polycystic ovary syndrome Polycystic Ovary Syndrome Pr oblem 06/23/2020 12:00:00 AM EDT TONEY ([facility]) [id number] 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 Problem 06/23/2020 12:00:00 AM EDT TONEY ([facility]) 54487014 Sleep apnea Sleep Apnea Problem 06/23/2020 12:00:00 AM EDT TONEY ([facility]) 477008908 Fibromyalgia Fibromyalgia Problem 06/23/2020 12:00:00 A M EDT TONEY ([facility]) 33807805 Degeneration of intervertebral disc Dege neration of Intervertebral Disc Problem 06/23/2020 12:00:00 AM EDT TONEY ([facility]) 939802876 Osteoarthritis Osteoarthritis Problem 06/23/2020 12:00: 00 AM EDT TONEY ([facility]) 822483248 Gastroparesis syndrome Gastroparesis Syndrome Problem 06/23/2020 12:00:00 AM EDT TONEY ([facility]) 355804276 Gastroesophageal reflux disease Gastroesophageal Reflux Disease Problem 06/23/2020 12:00:00 AM EDT TONEY ([facility]) 17514519 Chronic obstructive lung disease Chronic Obstruc tive Lung Disease Problem 06/23/2020 12:00:00 AM EDT TONEY ([facility]) 434628196 Asthma Asthma Problem 06/23/2020 12:00:00 AM ED T TONEY ([facility]) 65290683 Migraine Migraine Problem 06/23/2020 12:00:00 AM ED T TONEY ([facility]) 84693494 Depressive disorder Depressive Disorder Problem 0 06/23/2020 12:00:00 AM EDT TONEY ([facility]) 35054392 Posttraumatic stress disorder Posttraumatic Stress Dis order Problem 06/23/2020 12:00:00 AM EDT TONEY ([facility]) 64951698 Anxiety Anxiety Problem 06/23/2020 12:00:00 AM ED T TONEY ([facility]) 38310021 Type 2 diabetes mellitus Type 2 Diabetes Mellitus Prob chelsea 06/23/2020 12:00:00 AM EDT TONEY ([facility]) 462021194 Charcot's arthropathy Charcot's Arthropathy Problem 06/23/2020 12:00:00 AM EDT [facility]ONEY ([facility]) 310448071 Asthma Asthma Problem 06/23/2020 12:0 0:00 AM EDT - 09/01/2020 12:00:00 AM EDT [facility]ONE[facility] ([facility]) 40463833 Migraine Migraine Problem 06/23/2020 12:00:00 AM ED T TONEY ([facility]) 05183158 Depressive disorder Depressive Disorder Problem 0 06/23/2020 12:00:00 AM EDT TONEY ([facility]) 87261980 Posttraumatic stress disorder Posttraumatic Stress Dis order Problem 06/23/2020 12:00:00 AM EDT TONEY ([facility]) 76076567 Anxiety Anxiety Problem 06/23/2020 12:00:00 AM ED T TONEY ([facility]) 16930604 Type 2 diabetes mellitus Type 2 Diabetes Mellitus Prob chelsea 06/23/2020 12:00:00 AM EDT TONEY ([facility]) 882287391 Charcot's arthropathy Charcot's Arthropathy Problem 06/23/2020 12:00:00 AM EDT TONEY ([facility]) 043381149 Polycystic ovary syndrome Polycystic Ovary Syndrome Pr oblem 06/23/2020 12:00:00 AM EDT TONEY ([facility]) 187260130 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 Problem 06/23/2020 12:00:00 AM EDT TONEY ([facility]) 56958720 Sleep apnea Sleep Apnea Problem 06/23/2020 12:00:00 AM EDT TONEY ([facility]) 303921323 Fibromyalgia Fibromyalgia Problem 06/23/2020 12:00:00 A M EDT TONEY ([facility]) 17278903 Degeneration of intervertebral disc Dege neration of Intervertebral Disc Problem 06/23/2020 12:00:00 AM EDT TONEY ([facility]) 383988824 Osteoarthritis Osteoarthritis Problem 06/23/2020 12:00: 00 AM EDT TONEY ([facility]) 486681700 Gastroparesis syndrome Gastroparesis Syndrome Problem 06/23/2020 12:00:00 AM EDT TONEY ([facility]) 905681866 Gastroesophageal reflux disease Gastroesophageal Reflux Disease Problem 06/23/2020 12:00:00 AM EDT TONEY ([facility]) 21797949 Chronic obstructive lung disease Chronic Obstruc tive Lung Disease Problem 06/23/2020 12:00:00 AM EDT TONEY ([facility]) 504526815 Asthma Asthma Problem 06/23/2020 12:00:00 AM ED T TONEY ([facility]) 22927474 Migraine Migraine Problem 06/23/2020 12:00:00 AM ED T TONEY ([facility]) 76439441 Depressive disorder Depressive Disorder Problem 0 06/23/2020 12:00:00 AM EDT TONEY ([facility]) 21634801 Posttraumatic stress disorder Posttraumatic Stress Dis order Problem 06/23/2020 12:00:00 AM EDT [facility]ONEY ([facility]) 38164103 Anxiety Anxiety Problem 06/23/2020 12:00:00 AM ED T TONEY ([facility]) 15071839 Type 2 diabetes mellitus Type 2 Diabetes Mellitus Prob chel[place] 06/23/2020 12:00:00 AM EDT TONEY ([facility]) 440345864 Charcot's arthropathy Charcot's Arthropathy Problem 06/23/2020 12:00:00 AM EDT TONEY ([facility]) L89.891 Pressure ulcer of toe of right foot stag e 1 Pressure ulcer of toe of right foot stage 1 Problem 05/20/2020 12:00:00 AM EST [facility] ([facility] 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 Problem 05/20/19 12:00:00 AM EST [facility] ([facility] 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 Problem 02/24/2020 12:00:00 AM EST - 05/20/2020 12:00:00 AM EST [facility] ([facility] E66.9 [id number] Obesity (BMI 30-39.9) Problem 01/28/2020 12: 00:00 AM EDT eCW1 ([facility]) Surgeries/Procedures Procedure Description Date Indications Data Source(s) DEBRIDEMENT BONE MUSCLE &/FASCIA 20 SQ CM/< 02/23/2021 12:00:00 AM EST [facility] ([facility] OFFICE OUTPATIENT VISIT 15 MINUTES 02/23/2021 12:00:00 AM EST [facility] ([facility] OFFICE OUTPATIENT VISIT 10 MINUTES 02/04/2021 12:00:00 AM EDT [facility] ([facility] MRI Upper Extremity Any Joint 02/04/2021 12:00:00 AM E DT MED[facility] ([facility]) MRI Upper Extremity Any Joint 02/04/2021 12:00:00 AM E DT [facility] ([facility] ) Extended Individual Psychotherapy - 45 min 02/03/2021 12:00:00 AM EDT - 02/03/2021 12:00:00 AM EDT [facility] ([facility]) Extended Individual Psychotherapy - 45 min 12:00:00 AM EDT [facility] ([facility]) APPLICATION CAST ELBOW FINGER SHORT ARM 01/27/2021 12: 00:00 AM EDT MED[facility] ([facility]) OFFICE OUTPATIENT VISIT 15 MINUTES 01/27/2021 12:00:00 AM EDT [facility] ([facility] ) Extended Individual Psychotherapy - 45 min 01/26/2021 12:00:00 AM EDT - 01/26/2021 12:00:00 AM EDT [facility] ([facility]) Extended Individual Psychotherapy - 45 min 12:00:00 AM EDT [facility] ([facility]) TEMPMHCTelemed 30" Psychotherapy 12:00:00 AM EDT - 01/07/2021 12:00:00 AM EDT [facility] ([facility]) TEMPMHCTelemed 30" Psychotherapy 01/06/2021 12:00:00 A M EDT [facility] ([facility]) Extended Individual Psychotherapy - 45 min 12/29/2020 12:00:00 AM EDT - 12/29/2020 12:00:00 AM EDT [facility] ([facility]) Extended Individual Psychotherapy - 45 min 12:00:00 AM EDT [facility] ([facility]) MHC Telemed E/M Lvl 3--Est pt 12/14/2020 12:00:00 AM EDT - 12/14/2020 12:00:00 AM EDT [facility] ([facility]) MHC Telemed E/M Lvl 3--Est pt 12/14/2020 12:00:00 AM E DT [facility] ([facility]) DEBRIDEMENT NAIL ANY METHOD 6/> 11/26/2020 12:00:00 AM EDT [facility] ([facility] Extended Individual Psychotherapy - 45 min 11/25/2020 12:00:00 AM EDT - 11/25/2020 12:00:00 AM EDT [facility] ([facility]) Extended Individual Psychotherapy - 45 min 12:00:00 AM EDT [facility] ([facility]) Brief Individual Psychotherapy - 30 min 11/12/2020 12:00:00 AM EDT - 11/12/2020 12:00:00 AM EDT [facility] ([facility]) PREVENT MED POST FORM REMOVER&/RISK FACTOR REDJ SPX 15 MIN 11/10/2020 12:00:00 AM EDT - 11/10/2020 12:00:00 AM EDT [facility] ([facility]) PREVENT MED POST FORM REMOVER&/RISK FACTOR REDJ SPX 15 MIN 11/10 12:00:00 AM EDT [facility] ([facility]) Brief Individual Psychotherapy - 30 min 11/10/2020 12: 00:00 AM EDT [facility] ([facility]) PREVENT MED POST FORM REMOVER&/RISK FACTOR REDJ SPX 30 MIN 11/10 12:00:00 AM EDT [facility] ([facility]) Extended Individual Psychotherapy - 45 min 10/28/2020 12:00:00 AM EDT - 10/28/2020 12:00:00 AM EDT [facility] ([facility]) Extended Individual Psychotherapy - 45 min 12:00:00 AM EDT [facility] ([facility]) OFFICE OUTPATIENT VISIT 10 MINUTES 10/19 12:00:00 AM EDT - 10/19/2020 12:00:00 AM EDT [facility] ([facility]) OFFICE OUTPATIENT VISIT 10 MINUTES 10/19/2020 12:00:00 AM EDT [facility] ([facility]) Excise Benign Lesion 1.1-2CM Trunk/Arm/Leg 10/14/2020 12:00:00 AM EDT [facility] ([facility], ) Layer Closure Wound < 2.6CM Scalp/Axillae/Trunk/Extremiti es 10/14/2020 12:00:00 AM EDT MED[facility] ([facility], ) OFFICE OUTPATIENT VISIT 15 MINUTES 10/07/2020 12:00:00 AM EDT MED[facility] ([facility]) Extended Individual Psychotherapy - 45 min 09/29/2020 12:00:00 AM EDT - 09/29/2020 12:00:00 AM EDT [facility] ([facility]) Extended Individual Psychotherapy - 45 min 12:00:00 AM EDT [facility] ([facility]) OFFICE OUTPATIENT NEW 30 MINUTES 09/23/2020 12:00:00 A M EDT MED[facility] ([facility], ) MHC Telemed E/M Lvl 2--Est pt 09/21/2020 12:00:00 AM EDT - 09/21/2020 12:00:00 AM EDT [facility] ([facility]) MHC Telemed E/M Lvl 2--Est pt 09/21/2020 12:00:00 AM E DT [facility] ([facility]) OFFICE OUTPATIENT VISIT 10 MINUTES 09/17/2020 12:00:00 AM EDT [facility] ([facility] THERAPEUTIC PX 1/> AREAS EACH 15 MIN EXERCISES 12:00:00 AM EDT [facility] ([facility] ) MANUAL THERAPY TQS 1/> REGIONS EACH 15 MINUTES 12:00:00 AM EDT MED[facility] ([facility]) OFFICE OUTPATIENT VISIT 15 MINUTES 09/14 12:00:00 AM EDT - 09/14/2020 12:00:00 AM EDT [facility] ([facility]) OFFICE OUTPATIENT VISIT 15 MINUTES 09/14/2020 12:00:00 AM EDT [facility] ([facility]) THERAPEUTIC PX 1/> AREAS EACH 15 MIN EXERCISES 12:00:00 AM EDT MED[facility] ([facility]) MANUAL THERAPY TQS 1/> REGIONS EACH 15 MINUTES 12:00:00 AM EDT [facility] ([facility]) THERAPEUTIC PX 1/> AREAS EACH 15 MIN EXERCISES 12:00:00 AM EDT [facility] ([facility]) MANUAL THERAPY TQS 1/> REGIONS EACH 15 MINUTES 12:00:00 AM EDT [facility] ([facility] ) Extended Individual Psychotherapy - 45 min 09/01/2020 12:00:00 AM EDT - 09/01/2020 12:00:00 AM EDT [facility] ([facility]) Extended Individual Psychotherapy - 45 min 12:00:00 AM EDT [facility] ([facility]) THERAPEUTIC PX 1/> AREAS EACH 15 MIN EXERCISES 12:00:00 AM EDT [facility] ([facility] ) MANUAL THERAPY TQS 1/> REGIONS EACH 15 MINUTES 12:00:00 AM EDT [facility] ([facility] ) THERAPEUTIC PX 1/> AREAS EACH 15 MIN EXERCISES 12:00:00 AM EDT [facility] ([facility] ) Physical Therapy Eval - Low Complexity 08/17/2020 12:0 0:00 AM EDT [facility] ([facility] ) OFFICE OUTPATIENT VISIT 25 MINUTES 08/11/2020 12:00:00 AM EDT [facility] ([facility] ) X-Ray Spine Lumbosacral Complete Inc Bending Views Min Of 6 08/11/2020 12:00:00 AM EDT [facility] ([facility]) OFFICE OUTPATIENT VISIT 25 MINUTES 08/06/2020 12:00:00 AM EDT [facility] ([facility] ) Tenotomy Toe Subcutaneous Single 08/05/2020 12:00:00 A M EDT [facility] ([facility] DEBRIDEMENT OPEN WOUND 20 SQ CM/< 08/05/2020 12:00:00 AM EDT [facility] ([facility] DEBRIDEMENT OPEN WOUND 20 SQ CM/< 07/22/2020 12:00:00 AM EDT [facility] ([facility] Extended Individual Psychotherapy - 45 min 07/22/2020 12:00:00 AM EDT - 07/22/2020 12:00:00 AM EDT [facility] ([facility]) Extended Individual Psychotherapy - 45 min 12:00:00 AM EDT [facility] ([facility]) MHC Telemed E/M Lvl 2--Est pt 07/20/2020 12:00:00 AM EDT - 07/20/2020 12:00:00 AM EDT [facility] ([facility]) MHC Telemed E/M Lvl 2--Est pt 07/20/2020 12:00:00 AM E DT [facility] ([facility]) DEBRIDEMENT OPEN WOUND 20 SQ CM/< 07/08/2020 12:00:00 AM EDT [facility] ([facility] OFFICE OUTPATIENT VISIT 10 MINUTES 07/07/2020 12:00:00 AM EDT [facility] ([facility] ) Extended Individual Psychotherapy - 45 min 07/01/2020 12:00:00 AM EDT - 07/01/2020 12:00:00 AM EDT [facility] ([facility]) Extended Individual Psychotherapy - 45 min 12:00:00 AM EDT [facility] ([facility]) DEBRIDEMENT OPEN WOUND 20 SQ CM/< 06/24/2020 12:00:00 AM EDT [facility] ([facility] Telemed E/M Lvl 3--New pt 06/22/2020 12: 00:00 AM EDT - 06/22/2020 12:00:00 AM EDT [facility] ([facility]) Telemed E/M Lvl 3--New pt 06/22/2020 12:00:00 AM EDT [facility] ([facility]) I & D Abscess Simple 06/14/2020 12:00:00 AM EST [facility] ([facility], ) DEBRIDEMENT SUBCUTANEOUS TISSUE 20 SQ CM/< 06/10/2020 12:00:00 AM EST [facility] ([facility] Extended Individual Psychotherapy - 45 min 06/04/2020 12:00:00 AM EST - 06/04/2020 12:00:00 AM EST [facility] ([facility]) Extended Individual Psychotherapy - 45 min 12:00:00 AM EST [facility] ([facility]) MHC Telemed E/M Lvl 3--Est pt 05/25/2020 12:00:00 AM EST - 05/25/2020 12:00:00 AM EST [facility] ([facility]) MHC Telemed E/M Lvl 3--Est pt 05/25/2020 12:00:[address] [facility] ([facility]) Extended Individual Psychotherapy - 45 min 05/21/2020 12:00:00 AM EST - 05/21/2020 12:00:00 AM EST [facility] ([facility]) Extended Individual Psychotherapy - 45 min 12:00:00 AM EST [facility] ([facility]) TEMPMHCTelemed 30" Psychotherapy 021 12:00:00 AM EST - 05/14/2020 12:00:00 AM EST [facility] ([facility]) TEMPMHCTelemed 30" Psychotherapy 05/12/2020 12:00:00 A M EST [facility] ([facility]) DEBRIDEMENT OPEN WOUND 20 SQ CM/< 05/11/2020 12:00:00 AM EST [facility] ([facility] [id number]"Psychotherapy 12:00:00 AM EST - 05/07/2020 12:00:00 AM EST [facility] ([facility]) [id number]"Psychotherapy 05/05/2020 12:00:00 AM EST [facility] ([facility]) Brief Individual Psychotherapy - 30 min 04/28/2020 12:00:00 AM EST - 04/28/2020 12:00:00 AM EST [facility] ([facility]) DEBRIDEMENT OPEN WOUND 20 SQ CM/< 04/27/2020 12:00:00 AM EST [facility] ([facility] Brief Individual Psychotherapy - 30 min 04/27/2020 12: 00:00 AM EST [facility] ([facility]) MHC Telemed E/M Lvl 3--Est pt 04/27/2020 12:00:00 AM EST - 04/27/2020 12:00:00 AM EST [facility] ([facility]) MHC Telemed E/M Lvl 3--Est pt 04/27/2020 12:00:[address] [facility] ([facility]) [id number]"Psychotherapy 12:00:00 AM EST - 04/14/2020 12:00:00 AM EST [facility] ([facility]) [id number]"Psychotherapy 04/13/2020 12:00:00 AM EST [facility] ([facility]) DEBRIDEMENT OPEN WOUND 20 SQ CM/< 04/12/2020 12:00:00 AM EST [facility] ([facility] Extended Individual Psychotherapy - 45 min 03/30/2020 12:00:00 AM EST - 03/30/2020 12:00:00 AM EST [facility] ([facility]) Extended Individual Psychotherapy - 45 min 0 12:00:00 AM EST [facility] ([facility]) TEMPMHCTelemed 30" Psychotherapy 020 12:00:00 AM EST - 03/16/2020 12:00:00 AM EST [facility] ([facility]) TEMPMHCTelemed 30" Psychotherapy 03/16/2020 12:00:00 A M EST [facility] ([facility]) MHC Telemed E/M Lvl 3--Est pt 03/02/2020 12:00:00 AM EST - 03/02/2020 12:00:00 AM EST [facility] ([facility]) MHC Telemed E/M Lvl 3--Est pt 03/02/2020 12:00:[address] [facility] ([facility]) RADEX FOOT COMPLETE MINIMUM 3 VIEWS 02/24/2020 12:00:0 0 AM EST [facility] ([facility] Extended Individual Psychotherapy - 45 min 02/17/2020 12:00:00 AM EST - 02/17/2020 12:00:00 AM EST [facility] ([facility]) Extended Individual Psychotherapy - 45 min 0 12:00:00 AM EST [facility] ([facility]) Extended Individual Psychotherapy - 45 min 02/03/2020 12:00:00 AM EDT - 02/03/2020 12:00:00 AM EDT [facility] ([facility]) Extended Individual Psychotherapy - 45 min 0 12:00:00 AM EDT [facility] ([facility]) RADEX ANKLE COMPLETE MINIMUM 3 VIEWS 01/20/2020 12:00: 00 AM EDT [facility] ([facility] RADEX FOOT COMPLETE MINIMUM 3 VIEWS 01/20/2020 12:00:0 0 AM EDT [facility] ([facility] DEBRIDEMENT OPEN WOUND 20 SQ CM/< 01/20/2020 12:00:00 AM EDT [facility] ([facility] Extended Individual Psychotherapy - 45 min 01/20/2020 12:00:00 AM EDT - 01/20/2020 12:00:00 AM EDT [facility] ([facility]) Extended Individual Psychotherapy - 45 min 0 12:00:00 AM EDT [facility] ([facility]) DEBRIDEMENT SUBCUTANEOUS TISSUE 20 SQ CM/< 01/16/2020 12:00:00 AM EDT [facility] ([facility] MHC Telemed E/M Lvl 3--Est pt 01/13/2020 12:00:00 AM EDT - 01/13/2020 12:00:00 AM EDT [facility] ([facility]) MHC Telemed E/M Lvl 3--Est pt 01/13/2020 12:00:00 AM E DT [facility] ([facility]) Extended Individual Psychotherapy - 45 min 01/06/2020 12:00:00 AM EDT - 01/06/2020 12:00:00 AM EDT [facility] ([facility]) Extended Individual Psychotherapy - 45 min 0 12:00:00 AM EDT [facility] ([facility]) DEBRIDEMENT OPEN WOUND 20 SQ CM/< 01/02/2020 12:00:00 AM EDT [facility] ([facility] Results ID Date Data Source [id number] 02/23/2021 01:30:00 PM EST [facility] ([facility] Name Value Range Interpretation Code Description Data Marian rce(s) Supporting Document(s) Gram Stain Laboratory test result [facility] ([facility] FEW RBCS FEW WBCS MANY GRAM POSITIVE COCCI IN PAIRS FEW GRAM NEGATIVE RODS ID Date Data Source [id number] 02/14/2021 10:53:06 AM EST [facility] Name Value Range Interpretation Code Description Data Marian rce(s) Supporting Document(s) Progress Note [facility] GODBKt8sTrBMAnBg84/CKWglKWAju4RdCSvlOYb7RDkdPPZxU7YsBLS9vK4cXJH3DJkYVrDdFyIgFXM6 lbm [file] XwZpZSN5J6R2Mnj1PnWmFqn+LW2eQXu+Km4Xx8HdneZ0shFjZHjrJDuyIm2NSEVIF0XJFw== ID Date Data Source [id number] 02/14/2021 09:49:19 AM EST [facility] Name Value Range Interpretation Code Description Data Marian rce(s) Supporting Document(s) [facility]/CUFthLLXlv1FtWOwjIHg5IFcvZPHbW5FxNOT4zS9tHXV8XRlMVaXrCfLmISL1 lbm [file] DrSWvlVRMeYP2HWPDZZ9HQGr== ID Date Data Source [id number] 01/07/2021 08:46:51 AM EDT [facility] Name Value Range Interpretation Code Description Data Marian rce(s) Supporting Document(s) Progress Note [facility] WRWYZv9eElXGVyQc20/MUBafRQZjr5QrFAvpELk7YTylZSSaC3UnROI7jX8vSBA3LJgZJlBrVgBqKQIq lbm [file] dGE+DQogICAgICAgICAgICAgICAgICAgICAgICAgIC AgICAgICAgICAgICAgICAgICAgICAgICAgICAgICAgICAgICAgICAgICAgICAgICAgICAgICAgICAgIC AgICAgICAgICAgICAgDQogICAgICAgICAgICAgICAgICAgICAgICAgICAgICAgICAgICAgICAgICAgIC AgICAgICAgICAgICAgICAgICAgICAgICAgICAgICAg ICAgICAgICAgICAgICAgICAgICAgICAgDQogICAgICAgICAgICAgICAgICAgICAgICAgICAgICAgICAg ICAgICAgICAgICAgICAgICAgICAgICAgICAgICAgICAgICAgICAgICAgICAgICAgICAgICAgICAgICAg ICAgICAgDQogICAgICAgICAgICAgICAgICAgICAgIC AgICAgICAgICAgICAgICAgICAgICAgICAgICAgICAgICAgICAgICAgICAgICAgICAgICAgICAgICAgIC AgICAgICAgICAgICAgICAgDQogICAgICAgICAgICAgICAgICAgICAgICAgICAgICAgICAgICAgICAgIC AgICAgICAgICAgICAgICAgICAgICAgICAgICAgICAg ICAgICAgICAgICAgICAgICAgICAgICAgICAgDQogICAgICAgICAgICAgICAgICAgICAgICAgICAgICAg ICAgICAgICAgICAgICAgICAgICAgICAgICAgICAgICAgICAgICAgICAgICAgICAgICAgICAgICAgICAg ICAgICAgICAgDQogICAgICAgICAgICAgICAgICAgIC AgICAgICAgICAgICAgICAgICAgICAgICAgICAgICAgICAgICAgICAgICAgICAgICAgICAgICAgICAgIC AgICAgICAgICAgICAgICAgICAgDQogICAgICAgICAgICAgICAgICAgICAgICAgICAgICAgICAgICAgIC AgICAgICAgICAgICAgICAgICAgICAgICAgICAgICAg ICAgICAgICAgICAgICAgICAgICAgICAgICAgICAgDQogICAgICAgICAgICAgICAgICAgICAgICAgICAg ICAgICAgICAgICAgICAgICAgICAgICAgICAgICAgICAgICAgICAgICAgICAgICAgICAgICAgICAgICAg ICAgICAgICAgICAgDQogICAgICAgICAgICAgICAgIC AgICAgICAgICAgICAgICAgICAgICAgICAgICAgICAgICAgICAgICAgICAgICAgICAgICAgICAgICAgIC RhRNUzCACxPNIhKOQeTGErRAQoACPoGHk6J5gqGGPzOSGiWC5fORy0Qn1+NThURdVoLTB9twIzrW9IBT 9km9AlZKdrUWSwk1OgXKx7KX7EGWUtMIubSL1DBQkt tp0HNWKaAHAuiYMGu1alTfDxPFJ6EPZuNsnkPO9WHCBjE6kkvaYmUXFqVEYAXFttGQUBLX5QNxWlK3Gh xT85JVPIEv9+ZFpaxbKpXkhWWyVvJXHmh8FbUIv8CK6YOPDbCvffr1GoLbYmPOMBSFefUO5UNIV8PMHx NTJmXe8TDMIhO604fpLdPY6UTu4UXjQkUQ3ruq7WTu AoGBOjJwkPAoq2WDgsOT2YyQMcRQvOst2vsjBpvsXJq9BqsqIlqZCSNABkzB4eCALTgmWbLQ5nCVCXPH StgSSfDH3uHqWbMcZdQKe6ASBfMY6wDOtoMP3ZWIB5ZIfoGCUrIVYnP9jSGfZjMPEdTWGcrZdlAN7EHw RoU0AhwhWazRXpXjLrPDKYHg8+DQplbmRvYmoNCjM0 HXIbd8RtNCo3VR6WHXSeMNkhEY4ILKUlwT1eTZpiDH9YFmKgAVEiGZGOHtCwR79zuMXdNPs9D2ZxHhVg ZGVkRmlsZXMgPDwvTmFtZXMgWyBdDQogID4+ID4+NUqrMJ2BMFedhsIgTYWzRx0JWRDwASAiPG9gLEBf HFJkS6B4uHmuDNGPDnMeB9dvsvetFL1bIQFmT043fI bhrjEqDXWzUKWhVe3TMHCnTNF3MLLerBBmOiFvXLMNJEbjTS7CjQQfZLH1dU1eNYykIEGfVDToL2kBAt QehXzaCR27eLdlegAsxYOrOCd+Uk0GDV6fy7LrRYv5cpLmGSsdWVX8CRskURFjZAOxGTTmRUW3ERH0OR IVQdIfWTTiDKEqHLgcTTCuQNHudg0MVCVqROCmMnhn EfSzXZMkDUGnEFshNPQhIHQ0YwT3TNYrCLVkLU1UEjJdOUJkGAReRTbmHCUpTQIukg6ZADDdOZMbEcZ7 PFHcLDTmFWAdDFmbHXPnRDRmBBrrKFCbLSQlIW4EHzPcQFPaQFQ1AvOjHYAwKGXvwn9QRSFrAQKhYJTh YJOoSKVnAKJeHWdgHEYlQSC0JXt3ILKoGQUqPT4FUv WdQROvMCGtXYSfYDHqEYRnlo4KGRHfQSFdTdG3WQOkFCSwFWNnTNbsJBSeHUE5XXYxJTVqOIYwKY5RIm EsKQAdESt5IbPdADUaOLJmgx7VXUZaZOGgHixyWCKvQKHfQJTuNTurUZPzONL1XtAlWIPgVJIlPV4LQq XiZJMxXWo5BvSoHEAlMJSsvs5SNRDnWEEiSQr3OGLo JMKkEBIcVPzoEBUvVTCsKIG0NXFnHJAvOA1SPwDdGIUbJcVcMGEeIAYkNCVmxp8MCJSrVEVtYBGaGSOs QETuAMFaBZcyYTIwORYdLiUyXPKbKRFzRC7OUlEhRZTsTnP1VBVnUXNxORPfui4FIMNqBXNcWyI0ZeVi OXNjRQBnGEwwJEEtZKW5RsE9HLSoELHfDH5IBsPqVM FzEoT6JHLtQXVuBDChfy9KWHDnEOCtIvNwJWZfQKEdZDVcZMxpZSJyMIT3TogmQKCxNHFdMC0OMzBvHB PvEet4ZQLyMJVzGPVdbr2DEBEnRSCvLqriGuPjVPKdPVUuEGxrYOUaEXD2OOvdFPViRYFwEG6MYePjMU YsAmsuMnidLPYhCHRxkq3RJKSiSCBxXUh5SjZcBMTr MMMdUUpzWQGaQRH1KMZ5OXCxKODrTA1BTkJhRRImOks6LTBaUYLwCWQeod2NlOTxrFfwzp2ZNNsXQp2U pGwePIU9XLnfBy5iiSWoPCYaHHRZXs2IvgRqPEWpPLIXDMcdNJChZQNgCuWwAjOeDVWkWOsfBQJlPMXp MYE9QeNwBKP6TeCeYuI8YEXrF4WgISZiCRF8BFInLo Z7XmVfThxcVVD0WgQ9VJN+CT3aPVx+Um0Wg1AejiU2wmQdHBeaMXHdKQ3ABLLSW4QNZh== ID Date Data Source [id number] 12/13/2020 04:41:28 PM EDT [facility] XR SPINE LUMBAR MIN 4 VIEWS DOES NOT INC LUDE BENDING [id number] RESULTInterpreted by:ARTHUR Trotter SPINECLINICAL STATEMENT: Low back pain.TECHNIQUE: AP, lateral, and flexion-extension views of the lumbar spine. COMPARISON: 08/24/2016FINDINGS:The patient appears to be status post midline laminectomy at L5-S1.No acute fracture or subluxation is identified. Normal vertebral body heights and alignment are maintained. Severe degenerative disc space narrowing is noted at L5-S1.Otherwise, normal intervertebral disc spaces are preserved.IMPRESSION:Severe degenerative disc disease at L5-S1. St atus post L5-S1 laminectomy.This document has been electronically signed by Eliseo Espino MD on 12/13/2020 4:39 PM Name Value Range Interpretation Code Description Data Marian rce(s) Supporting Document(s) ID Date Data Source [id number] 12/06/2020 11:55:14 AM EDT [facility] Name Value Range Interpretation Code Description Data Marian rce(s) Supporting Document(s) Progress Note [facility] OPKGRf5mMgYFGfTz27/FCRenMUVvj4OhTYrkFHz7TEvyYREgC3QbVDE4wG1yUUG5AUhARiVtMoLiZSMz lbm [file] Security Sales Manager+bw4eywYzQuW9p5ulD+Upu+vgMDJovv50OzNdTP [file] [id number] ID Date Data Source [id number] 11/24/2020 10:06:00 AM EDT [facility]) Name Value Range Interpretation Code Description Data Marian rce(s) Supporting Document(s) Hemoglobin A1c/Hemoglobin.total in Blood 12.8 %_of_total_HGB <5. 7 Above high normal Hemoglobin a1C [facility]) ID Date Data Source [id number] 11/24/2020 10:06:00 AM EDT [facility]) Name Value Range Interpretation Code Description Data Marian rce(s) Supporting Document(s) Thyrotropin [Units/volume] in Serum or Plasma 1.33 mIU/L Tsh [facility] ([facility]) ID Date Data Source [id number] 11/24/2020 10:06:00 AM EDT [facility] ([facility]) Name Value Range Interpretation Code Description Data Marian rce(s) Supporting Document(s) Hepatitis A virus Ab [Presence] in Serum by Immunoassay non- reactive non-reactive Hepatitis a Ab, Total [facility] ([facility]) ID Date Data Source [id number] 11/24/2020 10:06:00 AM EDT [place] ([facility]) Name Value Range Interpretation Code Description Data Marian rce(s) Supporting Document(s) Hepatitis B virus surface Ab [Presence] in Serum by Immunoas say non-reactive non-reactive Hepatitis B Surface Antibody Ql [facility]) ID Date Data Source [id number] 11/24/2020 10:06:00 AM EDT [place] ([facility]) Name Value Range Interpretation Code Description Data Marian rce(s) Supporting Document(s) Hepatitis B virus surface Ag [Presence] in Serum or Pl asma by Immunoassay non-reactive non-reactive Hepatitis B Surface Antigen ATHE [facility]) ID Date Data Source [id number] 11/24/2020 10:06:00 AM EDT [facility]) Name Value Range Interpretation Code Description Data Marian rce(s) Supporting Document(s) Hepatitis C virus Ab [Presence] in Serum or Plasma by Immuno assay nonreactive nonreactive Hepatitis C Antibody [facility] ([facility]) Hepatitis C virus Ab Signal/Cutoff in Serum or Plasma by Imm unoassay 0.01 ratio <1.00 Index [facility] ([facility]) HIV 1+2 Ab+HIV1 p24 Ag [Presence] in Serum or Plasma b y Immunoassay non-reactive non-reactive HIV Ag/Ab, 4TH Gen [place] ([facility]) ID Date Data Source [id number] 11/03/2020 12:00:00 AM EDT [facility]) Name Value Range Interpretation Code Description Data Marian rce(s) Supporting Document(s) Nuclear Ab [Presence] in Serum negative negative anach oice(R) Screen [place] ([facility]) ID Date Data Source [id number] 11/03/2020 12:00:00 AM EDT [facility]) Name Value Range Interpretation Code Description Data Marian rce(s) Supporting Document(s) Mitochondria Ab [Presence] in Serum by Immunofluorescence negative negative Mitochondrial Ab Screen [place] ([facility]) ID Date Data Source [id number] 11/03/2020 12:00:00 AM EDT [facility]) Name Value Range Interpretation Code Description Data Marian rce(s) Supporting Document(s) Protein [Mass/volume] in Serum or Plasma 6.6 g/dL 6.1-8.1 Protein, Total [place] ([facility]) Albumin [Mass/volume] in Serum or Plasma 4.0 g/dL 3.6-5.1 Albumin [place] ([facility]) Globulin [Mass/volume] in Serum by calculation 2.6 g/dL_(calc) 1.9- 3.7 Globulin [place] ([facility]) Albumin/Globulin [Mass Ratio] in Serum or Plasma 1.5 (calc) 1.0-2 .5 Albumin/globulin Ratio [facility]) Bilirubin.total [Mass/volume] in Serum or Plasma 0.5 mg/dL 0.2-1 .2 Bilirubin, Total [facility]) Bilirubin.direct [Mass/volume] in Serum or Plasma 0.1 mg/dL < or = 0.2 Bilirubin, Direct [facility]) Bilirubin.indirect [Mass/volume] in Serum or Plasma 0.4 mg/dL_(calc ) 0.2-1.2 Bilirubin, Indirect [place] ([facility]) Alkaline phosphatase [Enzymatic activity/volume] in Serum or Plasma 66 U/L 31-125 Alkaline Phosphatase [facility] ([facility]) Aspartate aminotransferase [Enzymatic activity/volume] in Serum or Plasma 24 U/L 10-30 Ast [facility] ([facility]) Alanine aminotransferase [Enzymatic activity/volume] in Seru m or Plasma 34 U/L 6-29 Above high normal Alt [facility] ([facility]) ID Date Data Source [id number] 11/03/2020 12:00:00 AM EDT [place] ([facility]) Name Value Range Interpretation Code Description Data Marian rce(s) Supporting Document(s) Gamma glutamyl transferase [Enzymatic activity/volume] in Serum or Plasma 41 U/L 3-55 Ggt [facility] ([facility]) ID Date Data Source [id number] 11/03/2020 12:00:00 AM EDT [facility]) Name Value Range Interpretation Code Description Data Marian rce(s) Supporting Document(s) Nuclear Ab [Presence] in Serum negative negative anach oice(R) Screen [place] ([facility]) ID Date Data Source [id number] 11/03/2020 12:00:00 AM EDT [facility]) Name Value Range Interpretation Code Description Data Marian rce(s) Supporting Document(s) Mitochondria Ab [Presence] in Serum by Immunofluorescence negative negative [facility] Date Data Source [id number] 11/03/2020 12:00:00 AM EDT [facility]) Name Value Range Interpretation Code Description Data Marian rce(s) Supporting Document(s) Protein [Mass/volume] in Serum or Plasma 6.6 g/dL 6.1-8.1 Protein, Total [facility] ([facility]) Albumin [Mass/volume] in Serum or Plasma 4.0 g/dL 3.6-5.1 Albumin [place] ([facility]) Globulin [Mass/volume] in Serum by calculation 2.6 g/dL_(calc) 1.9- 3.7 Globulin [place] ([facility]) Albumin/Globulin [Mass Ratio] in Serum or Plasma 1.5 (calc) 1.0-2 .5 Albumin/globulin Ratio [place] ([facility]) Bilirubin.total [Mass/volume] in Serum or Plasma 0.5 mg/dL 0.2-1 .2 Bilirubin, Total [facility] ([facility]) Bilirubin.direct [Mass/volume] in Serum or Plasma 0.1 mg/dL < or = 0.2 Bilirubin, Direct [place] ([facility]) Bilirubin.indirect [Mass/volume] in Serum or Plasma 0.4 mg/dL_(calc ) 0.2-1.2 Bilirubin, Indirect [place] ([facility]) Alkaline phosphatase [Enzymatic activity/volume] in Serum or Plasma 66 U/L 31-125 Alkaline Phosphatase [facility] ([facility]) Aspartate aminotransferase [Enzymatic activity/volume] in Serum or Plasma 24 U/L 10-30 Ast [facility] ([facility]) Alanine aminotransferase [Enzymatic activity/volume] in Seru m or Plasma 34 U/L 6-29 Above high normal Alt [facility] ([facility]) ID Date Data Source [id number] 11/03/2020 12:00:00 AM EDT [facility]) Name Value Range Interpretation Code Description Data Marian rce(s) Supporting Document(s) Gamma glutamyl transferase [Enzymatic activity/volume] in Serum or Plasma 41 U/L 3-55 [facility] ID Date Data Source [id number] 11/03/2020 12:00:00 AM EDT [facility]) Name Value Range Interpretation Code Description Data Marian rce(s) Supporting Document(s) Mitochondria Ab [Presence] in Serum by Immunofluorescence negative negative Mitochondrial Ab Screen [facility] ([facility]) ID Date Data Source [id number] 11/03/2020 12:00:00 AM EDT [place] ([facility]) Name Value Range Interpretation Code Description Data Marian rce(s) Supporting Document(s) Protein [Mass/volume] in Serum or Plasma 6.6 g/dL 6.1-8.1 Protein, Total [facility] ([facility]) Albumin [Mass/volume] in Serum or Plasma 4.0 g/dL 3.6-5.1 Albumin [place] ([facility]) Globulin [Mass/volume] in Serum by calculation 2.6 g/dL_(calc) 1.9- 3.7 Globulin [place] ([facility]) Bilirubin.total [Mass/volume] in Serum or Plasma 0.5 mg/dL 0.2-1 .2 Bilirubin, Total [place] ([facility]) Albumin/Globulin [Mass Ratio] in Serum or Plasma 1.5 (calc) 1.0-2 .5 Albumin/globulin Ratio [place] ([facility]) Bilirubin.direct [Mass/volume] in Serum or Plasma 0.1 mg/dL < or = 0.2 Bilirubin, Direct [place] ([facility]) Bilirubin.indirect [Mass/volume] in Serum or Plasma 0.4 mg/dL_(calc ) 0.2-1.2 Bilirubin, Indirect [place] ([facility]) Alkaline phosphatase [Enzymatic activity/volume] in Serum or Plasma 66 U/L 31-125 Alkaline Phosphatase [facility] ([facility]) Aspartate aminotransferase [Enzymatic activity/volume] in Serum or Plasma 24 U/L 10-30 Ast [facility] ([facility]) Alanine aminotransferase [Enzymatic activity/volume] in Seru m or Plasma 34 U/L 6-29 Above high normal Alt [place] ([facility]) ID Date Data Source [id number] 11/03/2020 12:00:00 AM EDT [place] ([facility]) Name Value Range Interpretation Code Description Data Marian rce(s) Supporting Document(s) Gamma glutamyl transferase [Enzymatic activity/volume] in Serum or Plasma 41 U/L 3-55 Ggt [place] ([facility]) ID Date Data Source [id number] 11/03/2020 12:00:00 AM EDT [place] ([facility]) Name Value Range Interpretation Code Description Data Marian rce(s) Supporting Document(s) Nuclear Ab [Presence] in Serum negative negative anach oice(R) Screen [place] ([facility]) ID Date Data Source [id number] 11/03/2020 12:00:00 AM EDT [place] ([facility]) Name Value Range Interpretation Code Description Data Marian rce(s) Supporting Document(s) Mitochondria Ab [Presence] in Serum by Immunofluorescence negative negative Mitochondrial Ab Screen [place] ([facility]) ID Date Data Source [id number] 11/03/2020 12:00:00 AM EDT [place] ([facility]) Name Value Range Interpretation Code Description Data Marian rce(s) Supporting Document(s) Protein [Mass/volume] in Serum or Plasma 6.6 g/dL 6.1-8.1 Protein, Total [place] ([facility]) Albumin [Mass/volume] in Serum or Plasma 4.0 g/dL 3.6-5.1 Albumin [place] ([facility]) Globulin [Mass/volume] in Serum by calculation 2.6 g/dL_(calc) 1.9- 3.7 Globulin [place] ([facility]) Albumin/Globulin [Mass Ratio] in Serum or Plasma 1.5 (calc) 1.0-2 .5 Albumin/globulin Ratio [place] ([facility]) Bilirubin.direct [Mass/volume] in Serum or Plasma 0.1 mg/dL < or = 0.2 Bilirubin, Direct [place] ([facility]) Bilirubin.total [Mass/volume] in Serum or Plasma 0.5 mg/dL 0.2-1 .2 Bilirubin, Total [facility] ([facility]) Bilirubin.indirect [Mass/volume] in Serum or Plasma 0.4 mg/dL_(calc ) 0.2-1.2 Bilirubin, Indirect [facility] ([facility]) Alkaline phosphatase [Enzymatic activity/volume] in Serum or Plasma 66 U/L 31-125 Alkaline Phosphatase [facility] ([facility]) Aspartate aminotransferase [Enzymatic activity/volume] in Serum or Plasma 24 U/L 10-30 Ast [facility] ([facility]) Alanine aminotransferase [Enzymatic activity/volume] in Seru m or Plasma 34 U/L 6-29 Above high normal Alt [facility] ([facility]) ID Date Data Source [id number] 11/03/2020 12:00:00 AM EDT [facility]) Name Value Range Interpretation Code Description Data Marian rce(s) Supporting Document(s) Gamma glutamyl transferase [Enzymatic activity/volume] in Serum or Plasma 41 U/L 3-55 Ggt [place] ([facility]) ID Date Data Source [id number] 11/03/2020 12:00:00 AM EDT [facility]) Name Value Range Interpretation Code Description Data Marian rce(s) Supporting Document(s) Nuclear Ab [Presence] in Serum negative negative anach oice(R) Screen [place] ([facility]) ID Date Data Source [id number] 10/29/2020 01:56:10 PM EDT [facility] Name Value Range Interpretation Code Description Data Marian rce(s) Supporting Document(s) Progress Note [facility] CDPSVy9iBpWZMiYy19/TXKylLQCha4MuYFhvOWg1KSlbDADsT0QqMGF8dF8bRUE4UMiGTkFxJlHpGkWa [facility] [file] AgICAgICAgICAgICAgICAgICAgICAgICAgICAgICAgICAgICAgICAgICAgICAgICAgICAgICAgICAgIC AgICAgICAgICAgICAgICAgICAgICAgICAgDQogICAg ICAgICAgICAgICAgICAgICAgICAgICAgICAgICAgICAgICAgICAgICAgICAgICAgICAgICAgICAgICAg ICAgICAgICAgICAgICAgICAgICAgICAgICAgICAgICAgICAgDQogICAgICAgICAgICAgICAgICAgICAg ICAgICAgICAgICAgICAgICAgICAgICAgICAgICAgIC AgICAgICAgICAgICAgICAgICAgICAgICAgICAgICAgICAgICAgICAgICAgICAgDQogICAgICAgICAgIC AgICAgICAgICAgICAgICAgICAgICAgICAgICAgICAgICAgICAgICAgICAgICAgICAgICAgICAgICAgIC AgICAgICAgICAgICAgICAgICAgICAgICAgICAgDQog ICAgICAgICAgICAgICAgICAgICAgICAgICAgICAgICAgICAgICAgICAgICAgICAgICAgICAgICAgICAg ICAgICAgICAgICAgICAgICAgICAgICAgICAgICAgICAgICAgICAgDQogICAgICAgICAgICAgICAgICAg ICAgICAgICAgICAgICAgICAgICAgICAgICAgICAgIC AgICAgICAgICAgICAgICAgICAgICAgICAgICAgICAgICAgICAgICAgICAgICAgICAgDQogICAgICAgIC AgICAgICAgICAgICAgICAgICAgICAgICAgICAgICAgICAgICAgICAgICAgICAgICAgICAgICAgICAgIC AgICAgICAgICAgICAgICAgICAgICAgICAgICAgICAg DQogICAgICAgICAgICAgICAgICAgICAgICAgICAgICAgICAgICAgICAgICAgICAgICAgICAgICAgICAg ICAgICAgICAgICAgICAgICAgICAgICAgICAgICAgICAgICAgICAgICAgDQogICAgICAgICAgICAgICAg ICAgICAgICAgICAgICAgICAgICAgICAgICAgICAgIC AgICAgICAgICAgICAgICAgICAgICAgICAgICAgICAgICAgICAgICAgICAgICAgICAgICAgDQogICAgIC AgICAgICAgICAgICAgICAgICAgICAgICAgICAgICAgICAgICAgICAgICAgICAgICAgICAgICAgICAgIC AgICAgICAgICAgICAgICAgICAgICAgICAgICAgICAg ENTnPYl1A0btXMQiGOVqUI6qCNl0Md7+ZIqOQvJwIQZ4vnFayN2VMM3pj2XmCKlmGEKlg5OwZPj1JW7F ZSSePIayTX6MBXzskn0UWVVyQQGdjOOSd1zjHrXiQBX9AWExAqtdUE3FNPXfO0mnvqVuBGDlMTDTUCnx KRGWSGslIOCKPHTfNOMeCqSjWpGmPFRgQA1ARMYpY6 71piNiCW6NSd6QPoVpPD2nxz9KBwzsCZMeMmyCKxu2BQsyOU3LzCXguOYzSNVvDCZGLmByY8cby8CjEx pwHPJLOHnqNB7Xn0XteSPiEHo+Ba3NVQ7xj0QwIAguVPMdWS7gno0ELCrFRrQxW3PhkIwyALIie0rtKD EjIP9uaWJjHLD0YAlvpRHchvl7GLUcK0BrUXWjfmla HN5CYVD2JCvySo5gPSEcSNBxTuTzQJIVUT0EGSDeBFPcoLMjXCElZXIXZH4KTVvxDZM3DUArmoTkhFSd ICjvMA4NFMBusxAgOfueSZZXNBn+Ns4ROE5an6RiNMyqKGVaER7gvp7SKYfSYgTwL0P9yFRuY0K7LKsl Ag0ERQSmKNAmWrVaKOVVGTgxRO0QDF1gdhI8ZF2RcL TkNEMnIITxfNJkNDz7L67vkCFrESvoXP5ETVR+Selvin+Ew4RLACkGMZbRUZmIqThYUXMJsFyP4NsE1VWd3 EvK4QqCJ74jXlzwfLhRBvjCX1DGQ8yODPuFLSJKW0CoUMbgH6cmkTqGjOpRSWLCuPsU07cvMCfEBYdYW J1HDLdDz2BRGTlC8GentArnByyusIkRZEcFSPDXJ3X RHgjppPtjHRunEhbDS61gPpkYZ7EWr5LQfCuGK1zca0PvSNbWl7OERVlWR6VRWGcCJNrDVUoRJZ8PCWq UyDyAOntOBMxBOCgEQE6OXTiGOHaFJ3KJeTeUASeEvN8ExYcLRBmVYQkdk5JUUEmNBQvKoQ1UZTwGCHp NHLqTVjnHCTjFMDmBWC2SPPeRRCiPK3KXxFrVAHhUJ C1OcuzGQKcIGWdqg4LPFBiECGrLMxhVfLfFLCjOWYiMUixXFSmDOE1XPW9ZUHvBORpSR6JTjAvIADeKB dfFgAkBRExUFXqgs6JNWCtZSGbLAujJwGiUTQtQHOfBFgiPHNxVTSuXXF5KZFkEDKaQI3RSyUpHESjUX C9MfOoQUOdCAYksl7QEQLrACXcODusBGYdJAFaQVKc IPlfIASaEMB1Sme1HQHwVAZoJY6TAhAhZRRvUMZ2SXQiDBUgQDRquh2UGOXcCGPlQwn1TWHcSNAwSQHs IOqmMBKjZGT9OLD2KHXrJTQvLH0MRlNzLOYuUOgdEvStMPUsEQEebi4SSMUcKAJqIHL7NRZhYQTsNCFh MVqkUMZlGMU6TejiQNCxNLKkXU9AEtUrXVTnXWp5Hg zmADXrUAGgzr5NLSFbZWIpXDSdBQXmMRPjHXJpKHhvLWQpZIQmKiU6MXJzCPWqSK1GHiRmTFEhSlN6OT FlKJAtOSEvoj9LFQHzIPCsWHt5TdKeKKYdGEMzKRaxVTQvWDPbJEY9INRcZEFiYT2IOiGzBWIvZhEzVF OgLIDmNXYhnb5GJDRzUBIpStzfBLCjZFLqZICsVPvw EWOaAFRyLQp6YQKxBUGtPA0PCeHaRUUeQcNpQceyWECxYFHwjj9PsMRteZnaxh9CILiPFs3JxTvpNTNs NOktOp5naTRjUEFcDANHFp2ExdOzCVRjINRWQFibDAJqAJH1NPh4FuJ5IaExG6R3HhY6KQU1WAhtUGX1 FZLoOVF0XrJ0ISqkJstoRUniRtK8DaaaIHubOPgtUU VlMDlhMDJhMTY+BR4eNDv+Uf0Zq7BwbhV5vjYrRKsgTLQ3Pt0YUHYRV7ADAp== ID Date Data Source [id number] 10/20/2020 09:58:00 AM EDT [place] ([facility]) Name Value Range Interpretation Code Description Data Marian rce(s) Supporting Document(s) Hemoglobin A1c/Hemoglobin.total in Blood tnp Hemoglobin a1C [place] ([facility]) ID Date Data Source [id number] 10/20/2020 09:58:00 AM EDT [facility]) Name Value Range Interpretation Code Description Data Marian rce(s) Supporting Document(s) Thyrotropin [Units/volume] in Serum or Plasma 1.11 mIU/L Tsh [facility]) ID Date Data Source [id number] 10/20/2020 09:58:00 AM EDT [facility]) Name Value Range Interpretation Code Description Data Marian rce(s) Supporting Document(s) Ferritin [Mass/volume] in Serum or Plasma 17 NG/mL 16-232 Ferritin [facility]) ID Date Data Source [id number] 10/20/2020 09:58:00 AM EDT [facility]) Name Value Range Interpretation Code Description Data Marian rce(s) Supporting Document(s) Leukocytes [#/volume] in Blood by Automated count tnp White Blood Cell Count [facility]) ID Date Data Source [id number] 10/20/2020 09:58:00 AM EDT [facility]) Name Value Range Interpretation Code Description Data Marian rce(s) Supporting Document(s) Glucose [Mass/volume] in Serum or Plasma 390 mg/dL 65-99 Above high normal Glucose [facility] ([facility]) Urea nitrogen [Mass/volume] in Serum or Plasma 11 mg/dL 7-25 Urea Nitrogen (BUN) [facility]) Creatinine [Mass/volume] in Serum or Plasma 0.63 mg/dL 0.50-1.10 Creatinine [facility]) Glomerular filtration rate/1.73 sq M.pre dicted among non-blacks [Volume Rate/Area] in Serum, Plasma or Blood by Creatinine-based formula (CKD-EPI) 111 mL/min/1.73m2 > or = 60 eGFR Non-afr. [place] [facility] ([facility]) Glomerular filtration rate/1.73 sq M.pre dicted among blacks [Volume Rate/Area] in Serum, Plasma or Blood by Creatinine-based formula (CKD-EPI) 128 mL/min/1.73m2 > or = 60 eGFR [facility] ([facility]) Urea nitrogen/Creatinine [Mass Ratio] in Serum or Plasma not applic able 6-22 BUN/creatinine Ratio [facility] ([facility]) Sodium [Moles/volume] in Serum or Plasma 136 mmol/L 135-146 Sodium [facility] ([facility]) Potassium [Moles/volume] in Serum or Plasma 4.7 mmol/L 3.5-5.3 Potassium [facility] ([facility]) Chloride [Moles/volume] in Serum or Plasma 101 mmol/L 98-110 Chloride [facility] ([facility]) Carbon dioxide, total [Moles/volume] in Serum or Plasma 18 mmol/ L 20-32 Below low normal Carbon Dioxide [facility] ([facility]) Calcium [Mass/volume] in Serum or Plasma 8.9 mg/dL 8.6-10.2 Calcium [facility] ([facility]) Protein [Mass/volume] in Serum or Plasma 6.5 g/dL 6.1-8.1 Protein, Total [facility] ([facility]) Albumin [Mass/volume] in Serum or Plasma 4.0 g/dL 3.6-5.1 Albumin [facility] ([facility]) Globulin [Mass/volume] in Serum by calculation 2.5 g/dL_(calc) 1.9- 3.7 Globulin [facility] ([facility]) Albumin/Globulin [Mass Ratio] in Serum or Plasma 1.6 (calc) 1.0-2 .5 Albumin/globulin Ratio [place] ([facility]) Bilirubin.total [Mass/volume] in Serum or Plasma 0.6 mg/dL 0.2-1 .2 Bilirubin, Total [facility] ([facility]) Alkaline phosphatase [Enzymatic activity/volume] in Serum or Plasma 66 U/L 31-125 Alkaline Phosphatase [facility] ([facility]) Aspartate aminotransferase [Enzymatic activity/volume] in Serum or Plasma 34 U/L 10-30 Above high normal Ast [facility] ([facility]) Alanine aminotransferase [Enzymatic activity/volume] in Seru m or Plasma 38 U/L 6-29 Above high normal Alt [facility] ([facility]) comment Comment [facility] ([facility]) ID Date Data Source [id number] 10/20/2020 09:58:00 AM EDT [facility] ([facility]) Name Value Range Interpretation Code Description Data Marian rce(s) Supporting Document(s) Albumin [Mass/volume] in Serum or Plasma 4.0 g/dL 3.6-5.1 Albumin [facility] ([facility]) Protein [Mass/volume] in Serum or Plasma 6.5 g/dL 6.1-8.1 Protein, Total [facility] ([facility]) Albumin/Globulin [Mass Ratio] in Serum or Plasma 1.6 (calc) 1.0-2 .5 Albumin/globulin Ratio [place] ([facility]) Globulin [Mass/volume] in Serum by calculation 2.5 g/dL_(calc) 1.9- 3.7 Globulin [place] ([facility]) Bilirubin.direct [Mass/volume] in Serum or Plasma 0.1 mg/dL < or = 0.2 Bilirubin, Direct [facility] ([facility]) Bilirubin.indirect [Mass/volume] in Serum or Plasma 0.5 mg/dL_(calc ) 0.2-1.2 Bilirubin, Indirect [place] ([facility]) Bilirubin.total [Mass/volume] in Serum or Plasma 0.6 mg/dL 0.2-1 .2 Bilirubin, Total [facility] ([facility]) Aspartate aminotransferase [Enzymatic activity/volume] in Serum or Plasma 34 U/L 10-30 Above high normal Ast [facility] ([facility]) Alkaline phosphatase [Enzymatic activity/volume] in Serum or Plasma 66 U/L 31-125 Alkaline Phosphatase [facility] ([facility]) Alanine aminotransferase [Enzymatic activity/volume] in Seru m or Plasma 38 U/L 6-29 Above high normal Alt [facility] ([facility]) ID Date Data Source [id number] 10/20/2020 09:58:00 AM EDT [place] ([facility]) Name Value Range Interpretation Code Description Data Marian rce(s) Supporting Document(s) Gamma glutamyl transferase [Enzymatic activity/volume] in Serum or Plasma 60 U/L 3-55 Above high normal Ggt [facility] ([facility]) ID Date Data Source [id number] 10/20/2020 09:58:00 AM EDT [place] ([facility]) Name Value Range Interpretation Code Description Data Marian rce(s) Supporting Document(s) Creatinine [Mass/volume] in Urine tnp Cr eatinine, Random Urine [facility] ([facility]) Microalbumin [Mass/volume] in Urine tnp Albumin, Urine [facility] ([facility]) ID Date Data Source [id number] 10/20/2020 09:58[facility] Name Value Range Interpretation Code Description Data Marian rce(s) Supporting Document(s) Cholesterol [Mass/volume] in Serum or Plasma 178 mg/dL <200 Cholesterol, Total [facility] ([facility]) Cholesterol in HDL [Mass/volume] in Serum or Plasma 33 mg/dL > or = 50 Below low normal HDL Cholesterol [facility] ([facility]) Triglyceride [Mass/volume] in Serum or Plasma 336 mg/dL <150 Above high normal Triglycerides [facility] ([facility]) Cholesterol in LDL [Mass/volume] in Serum or Plasma by calculation 100 mg/dL_(calc) Above high normal LDL-cholesterol [facility] ([facility]) Cholesterol.total/Cholesterol in HDL [Mass Ratio] in Serum o r Plasma 5.4 (calc) <5.0 Above high normal Chol/hdlc Ratio [facility] ([facility]) Cholesterol non HDL [Mass/volume] in Serum or Plasma 145 mg/dL_( calc) <130 Above high normal Non HDL Cholesterol [facility] ([facility]) ID Date Data Source [id number] 10/20/2020 09:58:00 AM EDT [place] ([facility]) Name Value Range Interpretation Code Description Data Marian rce(s) Supporting Document(s) Hemoglobin A1c/Hemoglobin.total in Blood tnp [facility] Date Data Source [id number] 10/20/2020 09:58:00 AM EDT [facility]) Name Value Range Interpretation Code Description Data Marian rce(s) Supporting Document(s) Thyrotropin [Units/volume] in Serum or Plasma 1.11 mIU/L Tsh [facility] ([facility]) ID Date Data Source [id number] 10/20/2020 09:58:00 AM EDT [facility]) Name Value Range Interpretation Code Description Data Marian rce(s) Supporting Document(s) Ferritin [Mass/volume] in Serum or Plasma 17 NG/mL 16-232 Ferritin [facility]) ID Date Data Source [id number] 10/20/2020 09:58:00 AM EDT [facility]) Name Value Range Interpretation Code Description Data Marian rce(s) Supporting Document(s) Leukocytes [#/volume] in Blood by Automated count tnp White Blood Cell Count [facility]) ID Date Data Source [id number] 10/20/2020 09:58:00 AM EDT [facility]) Name Value Range Interpretation Code Description Data Marian rce(s) Supporting Document(s) Urea nitrogen [Mass/volume] in Serum or Plasma 11 mg/dL 7-25 Urea Nitrogen (BUN) [facility] ([facility]) Glucose [Mass/volume] in Serum or Plasma 390 mg/dL 65-99 Above high normal Glucose [facility] ([facility]) Glomerular filtration rate/1.73 sq M.pre dicted among blacks [Volume Rate/Area] in Serum, Plasma or Blood by Creatinine-based formula (CKD-EPI) 128 mL/min/1.73m2 > or = 60 eGFR [facility] ([facility]) Creatinine [Mass/volume] in Serum or Plasma 0.63 mg/dL 0.50-1.10 Creatinine [facility] ([facility]) Glomerular filtration rate/1.73 sq M.pre dicted among non-blacks [Volume Rate/Area] in Serum, Plasma or Blood by Creatinine-based formula (CKD-EPI) 111 mL/min/1.73m2 > or = 60 eGFR Non-afr. [place] [facility] ([facility]) Urea nitrogen/Creatinine [Mass Ratio] in Serum or Plasma not applic able 6-22 BUN/creatinine Ratio [facility] ([facility]) Sodium [Moles/volume] in Serum or Plasma 136 mmol/L 135-146 Sodium [facility] ([facility]) Potassium [Moles/volume] in Serum or Plasma 4.7 mmol/L 3.5-5.3 Potassium [facility] ([facility]) Carbon dioxide, total [Moles/volume] in Serum or Plasma 18 mmol/ L 20-32 Below low normal Carbon Dioxide [facility] ([facility]) Chloride [Moles/volume] in Serum or Plasma 101 mmol/L 98-110 Chloride [facility] ([facility]) Calcium [Mass/volume] in Serum or Plasma 8.9 mg/dL 8.6-10.2 Calcium [place] ([facility]) Protein [Mass/volume] in Serum or Plasma 6.5 g/dL 6.1-8.1 Protein, Total [place] ([facility]) Albumin [Mass/volume] in Serum or Plasma 4.0 g/dL 3.6-5.1 Albumin [facility] ([facility]) Globulin [Mass/volume] in Serum by calculation 2.5 g/dL_(calc) 1.9- 3.7 Globulin [facility] ([facility]) Albumin/Globulin [Mass Ratio] in Serum or Plasma 1.6 (calc) 1.0-2 .5 Albumin/globulin Ratio [facility]) Bilirubin.total [Mass/volume] in Serum or Plasma 0.6 mg/dL 0.2-1 .2 Bilirubin, Total [place] ([facility]) Alkaline phosphatase [Enzymatic activity/volume] in Serum or Plasma 66 U/L 31-125 Alkaline Phosphatase [facility] ([facility]) Aspartate aminotransferase [Enzymatic activity/volume] in Serum or Plasma 34 U/L 10-30 Above high normal Ast [facility] ([facility]) Alanine aminotransferase [Enzymatic activity/volume] in Seru m or Plasma 38 U/L 6-29 Above high normal Alt [facility] ([facility]) comment Comment [facility] ([facility]) ID Date Data Source [id number] 10/20/2020 09:58:00 AM EDT [place] ([facility]) Name Value Range Interpretation Code Description Data Marian rce(s) Supporting Document(s) Protein [Mass/volume] in Serum or Plasma 6.5 g/dL 6.1-8.1 Protein, Total [place] ([facility]) Albumin/Globulin [Mass Ratio] in Serum or Plasma 1.6 (calc) 1.0-2 .5 Albumin/globulin Ratio [place] ([facility]) Globulin [Mass/volume] in Serum by calculation 2.5 g/dL_(calc) 1.9- 3.7 Globulin [place] ([facility]) Albumin [Mass/volume] in Serum or Plasma 4.0 g/dL 3.6-5.1 Albumin [place] ([facility]) Bilirubin.total [Mass/volume] in Serum or Plasma 0.6 mg/dL 0.2-1 .2 Bilirubin, Total [place] ([facility]) Bilirubin.direct [Mass/volume] in Serum or Plasma 0.1 mg/dL < or = 0.2 Bilirubin, Direct [place] ([facility]) Bilirubin.indirect [Mass/volume] in Serum or Plasma 0.5 mg/dL_(calc ) 0.2-1.2 Bilirubin, Indirect [place] ([facility]) Alkaline phosphatase [Enzymatic activity/volume] in Serum or Plasma 66 U/L 31-125 Alkaline Phosphatase [facility] ([facility]) Aspartate aminotransferase [Enzymatic activity/volume] in Serum or Plasma 34 U/L 10-30 Above high normal Ast [facility] ([facility]) Alanine aminotransferase [Enzymatic activity/volume] in Seru m or Plasma 38 U/L 6-29 Above high normal Alt [facility] ([facility]) ID Date Data Source [id number] 10/20/2020 09:58:00 AM EDT [facility]) Name Value Range Interpretation Code Description Data Marian rce(s) Supporting Document(s) Gamma glutamyl transferase [Enzymatic activity/volume] in Serum or Plasma 60 U/L 3-55 Above high normal Ggt [place] ([facility]) ID Date Data Source [id number] 10/20/2020 09:58:00 AM EDT [facility]) Name Value Range Interpretation Code Description Data Marian rce(s) Supporting Document(s) Creatinine [Mass/volume] in Urine tnp Cr eatinine, Random Urine [place] ([facility]) Microalbumin [Mass/volume] in Urine tnp Albumin, Urine [place] ([facility]) ID Date Data Source [id number] 10/20/2020 09:58:00 AM EDT [facility]) Name Value Range Interpretation Code Description Data Marian rce(s) Supporting Document(s) Cholesterol [Mass/volume] in Serum or Plasma 178 mg/dL <200 Cholesterol, Total [place] ([facility]) Cholesterol in HDL [Mass/volume] in Serum or Plasma 33 mg/dL > or = 50 Below low normal HDL Cholesterol [facility] ([facility]) Cholesterol in LDL [Mass/volume] in Serum or Plasma by calculation 100 mg/dL_(calc) Above high normal LDL-cholesterol [facility] ([facility]) Triglyceride [Mass/volume] in Serum or Plasma 336 mg/dL <150 Above high normal Triglycerides [facility] ([facility]) Cholesterol.total/Cholesterol in HDL [Mass Ratio] in Serum o r Plasma 5.4 (calc) <5.0 Above high normal Chol/hdlc Ratio [facility] ([facility]) Cholesterol non HDL [Mass/volume] in Serum or Plasma 145 mg/dL_( calc) <130 Above high normal Non HDL [facility] ID Date Data Source [id number] 10/20/2020 09:58:00 AM EDT [facility]) Name Value Range Interpretation Code Description Data Marian rce(s) Supporting Document(s) Hemoglobin A1c/Hemoglobin.total in Blood tnp Hemoglobin a1C [facility]) ID Date Data Source [id number] 10/20/2020 09:58:00 AM EDT [facility]) Name Value Range Interpretation Code Description Data Marian rce(s) Supporting Document(s) Thyrotropin [Units/volume] in Serum or Plasma 1.11 mIU/L Tsh [facility]) ID Date Data Source [id number] 10/20/2020 09:58:00 AM EDT [facility]) Name Value Range Interpretation Code Description Data Marian rce(s) Supporting Document(s) Ferritin [Mass/volume] in Serum or Plasma 17 NG/mL 16-232 Ferritin [facility]) ID Date Data Source [id number] 10/20/2020 09:58:00 AM EDT [facility]) Name Value Range Interpretation Code Description Data Marian rce(s) Supporting Document(s) Leukocytes [#/volume] in Blood by Automated count tnp White Blood Cell Count [facility]) ID Date Data Source [id number] 10/20/2020 09:58:00 AM EDT [facility]) Name Value Range Interpretation Code Description Data Marian rce(s) Supporting Document(s) Glucose [Mass/volume] in Serum or Plasma 390 mg/dL 65-99 Above high normal Glucose [place] ([facility]) Urea nitrogen [Mass/volume] in Serum or Plasma 11 mg/dL 7-25 Urea Nitrogen (BUN) [place] ([facility]) Creatinine [Mass/volume] in Serum or Plasma 0.63 mg/dL 0.50-1.10 Creatinine [place] ([facility]) Glomerular filtration rate/1.73 sq M.pre dicted among non-blacks [Volume Rate/Area] in Serum, Plasma or Blood by Creatinine-based formula (CKD-EPI) 111 mL/min/1.73m2 > or = 60 eGFR Non-afr. [place] [facility] ([facility]) Urea nitrogen/Creatinine [Mass Ratio] in Serum or Plasma not applic able 6-22 BUN/creatinine Ratio [place] ([facility]) Glomerular filtration rate/1.73 sq M.pre dicted among blacks [Volume Rate/Area] in Serum, Plasma or Blood by Creatinine-based formula (CKD-EPI) 128 mL/min/1.73m2 > or = 60 eGFR [facility] (No [facility]) Potassium [Moles/volume] in Serum or Plasma 4.7 mmol/L 3.5-5.3 Potassium [place] ([facility]) Sodium [Moles/volume] in Serum or Plasma 136 mmol/L 135-146 Sodium [place] ([facility]) Carbon dioxide, total [Moles/volume] in Serum or Plasma 18 mmol/ L 20-32 Below low normal Carbon Dioxide [facility] ([facility]) Chloride [Moles/volume] in Serum or Plasma 101 mmol/L 98-110 Chloride [place] ([facility]) Calcium [Mass/volume] in Serum or Plasma 8.9 mg/dL 8.6-10.2 Calcium [place] ([facility]) Protein [Mass/volume] in Serum or Plasma 6.5 g/dL 6.1-8.1 Protein, Total [place] ([facility]) Globulin [Mass/volume] in Serum by calculation 2.5 g/dL_(calc) 1.9- 3.7 Globulin [place] ([facility]) Albumin [Mass/volume] in Serum or Plasma 4.0 g/dL 3.6-5.1 Albumin [facility]) Bilirubin.total [Mass/volume] in Serum or Plasma 0.6 mg/dL 0.2-1 .2 Bilirubin, Total [place] ([facility]) Albumin/Globulin [Mass Ratio] in Serum or Plasma 1.6 (calc) 1.0-2 .5 Albumin/globulin Ratio [place] ([facility]) Alkaline phosphatase [Enzymatic activity/volume] in Serum or Plasma 66 U/L 31-125 Alkaline Phosphatase [facility] ([facility]) Alanine aminotransferase [Enzymatic activity/volume] in Seru m or Plasma 38 U/L 6-29 Above high normal Alt [facility] ([facility]) comment Comment [facility] ([facility]) Aspartate aminotransferase [Enzymatic activity/volume] in Serum or Plasma 34 U/L 10-30 Above high normal Ast [facility] ([facility]) ID Date Data Source [id number] 10/20/2020 09:58:00 AM EDT [place] ([facility]) Name Value Range Interpretation Code Description Data Marian rce(s) Supporting Document(s) Protein [Mass/volume] in Serum or Plasma 6.5 g/dL 6.1-8.1 Protein, Total [place] ([facility]) Globulin [Mass/volume] in Serum by calculation 2.5 g/dL_(calc) 1.9- 3.7 Globulin [place] ([facility]) Albumin [Mass/volume] in Serum or Plasma 4.0 g/dL 3.6-5.1 Albumin [place] ([facility]) Albumin/Globulin [Mass Ratio] in Serum or Plasma 1.6 (calc) 1.0-2 .5 Albumin/globulin Ratio [place] ([facility]) Bilirubin.total [Mass/volume] in Serum or Plasma 0.6 mg/dL 0.2-1 .2 Bilirubin, Total [place] ([facility]) Bilirubin.direct [Mass/volume] in Serum or Plasma 0.1 mg/dL < or = 0.2 Bilirubin, Direct [place] ([facility]) Bilirubin.indirect [Mass/volume] in Serum or Plasma 0.5 mg/dL_(calc ) 0.2-1.2 Bilirubin, Indirect [place] ([facility]) Aspartate aminotransferase [Enzymatic activity/volume] in Serum or Plasma 34 U/L 10-30 Above high normal Ast [facility] ([facility]) Alkaline phosphatase [Enzymatic activity/volume] in Serum or Plasma 66 U/L 31-125 Alkaline Phosphatase [facility] ([facility]) Alanine aminotransferase [Enzymatic activity/volume] in Seru m or Plasma 38 U/L 6-29 Above high normal Alt [facility] ([facility]) ID Date Data Source [id number] 10/20/2020 09:58:00 AM EDT [place] ([facility]) Name Value Range Interpretation Code Description Data Marian rce(s) Supporting Document(s) Gamma glutamyl transferase [Enzymatic activity/volume] in Serum or Plasma 60 U/L 3-55 Above high normal Ggt [facility] ([facility]) ID Date Data Source [id number] 10/20/2020 09:58:00 AM EDT [place] ([facility]) Name Value Range Interpretation Code Description Data Marian rce(s) Supporting Document(s) Creatinine [Mass/volume] in Urine tnp Cr eatinine, Random Urine [facility] ([facility]) Microalbumin [Mass/volume] in Urine tnp Albumin, Urine [facility] ([facility]) ID Date Data Source [id number] 10/20/2020 09:58:00 AM EDT [place] ([facility]) Name Value Range Interpretation Code Description Data Marian rce(s) Supporting Document(s) Cholesterol [Mass/volume] in Serum or Plasma 178 mg/dL <200 Cholesterol, Total [place] ([facility]) Cholesterol in HDL [Mass/volume] in Serum or Plasma 33 mg/dL > or = 50 Below low normal HDL Cholesterol [facility] ([facility]) Triglyceride [Mass/volume] in Serum or Plasma 336 mg/dL <150 Above high normal Triglycerides [facility] ([facility]) Cholesterol in LDL [Mass/volume] in Serum or Plasma by calculation 100 mg/dL_(calc) Above high normal LDL-cholesterol [facility] ([facility]) Cholesterol.total/Cholesterol in HDL [Mass Ratio] in Serum o r Plasma 5.4 (calc) <5.0 Above high normal Chol/hdlc Ratio [facility] ([facility]) Cholesterol non HDL [Mass/volume] in Serum or Plasma 145 mg/dL_( calc) <130 Above high normal Non HDL Cholesterol [facility] ([facility]) ID Date Data Source [id number] 10/20/2020 09:58:00 AM EDT [place] ([facility]) Name Value Range Interpretation Code Description Data Marian rce(s) Supporting Document(s) Hemoglobin A1c/Hemoglobin.total in Blood tnp [facility] Date Data Source [id number] 10/20/2020 09:58:00 AM EDT [place] ([facility]) Name Value Range Interpretation Code Description Data Marian rce(s) Supporting Document(s) Thyrotropin [Units/volume] in Serum or Plasma 1.11 mIU/L Tsh [facility] ([facility]) ID Date Data Source [id number] 10/20/2020 09:58:00 AM EDT [place] ([facility]) Name Value Range Interpretation Code Description Data Marian rce(s) Supporting Document(s) Ferritin [Mass/volume] in Serum or Plasma 17 NG/mL 16-232 Ferritin [facility] ([facility]) ID Date Data Source [id number] 10/20/2020 09:58:00 AM EDT [facility]) Name Value Range Interpretation Code Description Data Marian rce(s) Supporting Document(s) Leukocytes [#/volume] in Blood by Automated count tnp [facility] ID Date Data Source [id number] 10/20/2020 09:58:00 AM EDT [place] ([facility]) Name Value Range Interpretation Code Description Data Marian rce(s) Supporting Document(s) Glucose [Mass/volume] in Serum or Plasma 390 mg/dL 65-99 Above high normal Glucose [facility] ([facility]) Creatinine [Mass/volume] in Serum or Plasma 0.63 mg/dL 0.50-1.10 Creatinine [facility] ([facility]) Urea nitrogen [Mass/volume] in Serum or Plasma 11 mg/dL 7-25 Urea Nitrogen (BUN) [facility] ([facility]) Glomerular filtration rate/1.73 sq M.pre dicted among non-blacks [Volume Rate/Area] in Serum, Plasma or Blood by Creatinine-based formula (CKD-EPI) 111 mL/min/1.73m2 > or = 60 eGFR Non-afr. [place] [facility] ([facility]) Glomerular filtration rate/1.73 sq M.pre dicted among blacks [Volume Rate/Area] in Serum, Plasma or Blood by Creatinine-based formula (CKD-EPI) 128 mL/min/1.73m2 > or = 60 eGFR [facility] (No [facility]) Sodium [Moles/volume] in Serum or Plasma 136 mmol/L 135-146 Sodium [facility] ([facility]) Potassium [Moles/volume] in Serum or Plasma 4.7 mmol/L 3.5-5.3 Potassium [facility] ([facility]) Urea nitrogen/Creatinine [Mass Ratio] in Serum or Plasma not applic able 6-22 BUN/creatinine Ratio [facility] ([facility]) Chloride [Moles/volume] in Serum or Plasma 101 mmol/L 98-110 Chloride [facility] ([facility]) Carbon dioxide, total [Moles/volume] in Serum or Plasma 18 mmol/ L 20-32 Below low normal Carbon Dioxide [facility] ([facility]) Calcium [Mass/volume] in Serum or Plasma 8.9 mg/dL 8.6-10.2 Calcium [facility] ([facility]) Protein [Mass/volume] in Serum or Plasma 6.5 g/dL 6.1-8.1 Protein, Total [place] ([facility]) Albumin [Mass/volume] in Serum or Plasma 4.0 g/dL 3.6-5.1 Albumin [place] ([facility]) Albumin/Globulin [Mass Ratio] in Serum or Plasma 1.6 (calc) 1.0-2 .5 Albumin/globulin Ratio [facility] ([facility]) Globulin [Mass/volume] in Serum by calculation 2.5 g/dL_(calc) 1.9- 3.7 Globulin [facility] ([facility]) Alkaline phosphatase [Enzymatic activity/volume] in Serum or Plasma 66 U/L 31-125 Alkaline Phosphatase [facility] ([facility]) Bilirubin.total [Mass/volume] in Serum or Plasma 0.6 mg/dL 0.2-1 .2 Bilirubin, Total [facility] ([facility]) Aspartate aminotransferase [Enzymatic activity/volume] in Serum or Plasma 34 U/L 10-30 Above high normal Ast [facility] ([facility]) Alanine aminotransferase [Enzymatic activity/volume] in Seru m or Plasma 38 U/L 6-29 Above high normal Alt [facility] ([facility]) comment Comment [facility] ([facility]) ID Date Data Source [id number] 10/20/2020 09:58:00 AM EDT [place] ([facility]) Name Value Range Interpretation Code Description Data Marian rce(s) Supporting Document(s) Protein [Mass/volume] in Serum or Plasma 6.5 g/dL 6.1-8.1 Protein, Total [facility] ([facility]) Albumin [Mass/volume] in Serum or Plasma 4.0 g/dL 3.6-5.1 Albumin [facility] ([facility]) Globulin [Mass/volume] in Serum by calculation 2.5 g/dL_(calc) 1.9- 3.7 Globulin [facility] ([facility]) Albumin/Globulin [Mass Ratio] in Serum or Plasma 1.6 (calc) 1.0-2 .5 Albumin/globulin Ratio [facility] ([facility]) Bilirubin.indirect [Mass/volume] in Serum or Plasma 0.5 mg/dL_(calc ) 0.2-1.2 Bilirubin, Indirect [facility] ([facility]) Bilirubin.total [Mass/volume] in Serum or Plasma 0.6 mg/dL 0.2-1 .2 Bilirubin, Total [facility] ([facility]) Bilirubin.direct [Mass/volume] in Serum or Plasma 0.1 mg/dL < or = 0.2 Bilirubin, Direct [facility] ([facility]) Alkaline phosphatase [Enzymatic activity/volume] in Serum or Plasma 66 U/L 31-125 Alkaline Phosphatase [facility] ([facility]) Aspartate aminotransferase [Enzymatic activity/volume] in Serum or Plasma 34 U/L 10-30 Above high normal Ast [facility] ([facility]) Alanine aminotransferase [Enzymatic activity/volume] in Seru m or Plasma 38 U/L 6-29 Above high normal Alt [facility] ([facility]) ID Date Data Source [id number] 10/20/2020 09:58:00 AM EDT [place] ([facility]) Name Value Range Interpretation Code Description Data Marian rce(s) Supporting Document(s) Gamma glutamyl transferase [Enzymatic activity/volume] in Serum or Plasma 60 U/L 3-55 Above high normal Ggt [facility] ([facility]) ID Date Data Source [id number] 10/20/2020 09:58:00 AM EDT [facility]) Name Value Range Interpretation Code Description Data Marian rce(s) Supporting Document(s) Microalbumin [Mass/volume] in Urine tnp Albumin, Urine [facility] ([facility]) Creatinine [Mass/volume] in Urine tnp Cr eatinine, Random Urine TONEY ([facility]) ID Date Data Source [id number] 10/20/2020 09:58:00 AM EDT [facility]) Name Value Range Interpretation Code Description Data Marian rce(s) Supporting Document(s) Cholesterol [Mass/volume] in Serum or Plasma 178 mg/dL <200 Cholesterol, Total TONEY ([facility]) Cholesterol in HDL [Mass/volume] in Serum or Plasma 33 mg/dL > or = 50 Below low normal HDL Cholesterol TONEY ([facility]) Triglyceride [Mass/volume] in Serum or Plasma 336 mg/dL <150 Above high normal Triglycerides TONEY ([facility]) Cholesterol in LDL [Mass/volume] in Serum or Plasma by calculation 100 mg/dL_(calc) Above high normal LDL-cholesterol TONEY ([facility]) Cholesterol non HDL [Mass/volume] in Serum or Plasma 145 mg/dL_( calc) <130 Above high normal Non HDL Cholesterol TONEY ([facility]) Cholesterol.total/Cholesterol in HDL [Mass Ratio] in Serum o r Plasma 5.4 (calc) <5.0 Above high normal Chol/hdlc Ratio TONEY ([facility]) ID Date Data Source [id number] 10/20/2020 09:58:00 AM EDT TONEY ([facility]) Name Value Range Interpretation Code Description Data Marian rce(s) Supporting Document(s) Hemoglobin A1c/Hemoglobin.total in Blood tnp Hemoglobin a1C TONEY ([facility]) ID Date Data Source [id number] 10/20/2020 09:58:00 AM EDT [facility]) Name Value Range Interpretation Code Description Data Marian rce(s) Supporting Document(s) Thyrotropin [Units/volume] in Serum or Plasma 1.11 [facility]IU/[facility] Date Data Source [id number] 10/20/2020 09:58:00 AM EDT TONEY ([facility]) Name Value Range Interpretation Code Description Data Marian rce(s) Supporting Document(s) Ferritin [Mass/volume] in Serum or Plasma 17 NG/mL 16-232 [facility] ID Date Data Source [id number] 10/20/2020 09:58:00 AM EDT [facility]) Name Value Range Interpretation Code Description Data Marian rce(s) Supporting Document(s) Leukocytes [#/volume] in Blood by Automated count tnp White Blood Cell Count [place] ([facility]) ID Date Data Source [id number] 10/20/2020 09:58:00 AM EDT TONEY ([facility]) Name Value Range Interpretation Code Description Data Marian rce(s) Supporting Document(s) Glucose [Mass/volume] in Serum or Plasma 390 mg/dL 65-99 Above high normal Glucose TONEY ([facility]) Urea nitrogen [Mass/volume] in Serum or Plasma 11 mg/dL 7-25 Urea Nitrogen (BUN) TONEY ([facility]) Creatinine [Mass/volume] in Serum or Plasma 0.63 mg/dL 0.50-1.10 Creatinine TONEY ([facility]) Glomerular filtration rate/1.73 sq M.pre dicted among blacks [Volume Rate/Area] in Serum, Plasma or Blood by Creatinine-based formula (CKD-EPI) 128 mL/min/1.73m2 > or = 60 eGFR TONEY (No [facility]) Glomerular filtration rate/1.73 sq M.pre dicted among non-blacks [Volume Rate/Area] in Serum, Plasma or Blood by Creatinine-based formula (CKD-EPI) 111 mL/min/1.73m2 > or = 60 eGFR Non-afr. [place] TONEY ([facility]) Sodium [Moles/volume] in Serum or Plasma 136 mmol/L 135-146 Sodium TONEY ([facility]) Urea nitrogen/Creatinine [Mass Ratio] in Serum or Plasma not applic able 6-22 BUN/creatinine Ratio TONEY ([facility]) Potassium [Moles/volume] in Serum or Plasma 4.7 mmol/L 3.5-5.3 Potassium TONEY ([facility]) Chloride [Moles/volume] in Serum or Plasma 101 mmol/L 98-110 Chloride TONEY ([facility]) Carbon dioxide, total [Moles/volume] in Serum or Plasma 18 mmol/ L 20-32 Below low normal Carbon Dioxide TONEY ([facility]) Calcium [Mass/volume] in Serum or Plasma 8.9 mg/dL 8.6-10.2 Calcium TONEY ([facility]) Protein [Mass/volume] in Serum or Plasma 6.5 g/dL 6.1-8.1 Protein, Total TONEY ([facility]) Albumin [Mass/volume] in Serum or Plasma 4.0 g/dL 3.6-5.1 Albumin TONEY ([facility]) Globulin [Mass/volume] in Serum by calculation 2.5 g/dL_(calc) 1.9- 3.7 Globulin TONEY ([facility]) Albumin/Globulin [Mass Ratio] in Serum or Plasma 1.6 (calc) 1.0-2 .5 Albumin/globulin Ratio TONEY ([facility]) Bilirubin.total [Mass/volume] in Serum or Plasma 0.6 mg/dL 0.2-1 .2 Bilirubin, Total [place] ([facility]) Alkaline phosphatase [Enzymatic activity/volume] in Serum or Plasma 66 U/L 31-125 Alkaline Phosphatase TONEY ([facility]) Aspartate aminotransferase [Enzymatic activity/volume] in Serum or Plasma 34 U/L 10-30 Above high normal Ast TONEY ([facility]) Alanine aminotransferase [Enzymatic activity/volume] in Seru m or Plasma 38 U/L 6-29 Above high normal Alt TONEY ([facility]) comment Comment [place] ([facility]) ID Date Data Source [id number] 10/20/2020 09:58:00 AM EDT [place] ([facility]) Name Value Range Interpretation Code Description Data Marian rce(s) Supporting Document(s) Protein [Mass/volume] in Serum or Plasma 6.5 g/dL 6.1-8.1 Protein, Total TONEY ([facility]) Albumin [Mass/volume] in Serum or Plasma 4.0 g/dL 3.6-5.1 Albumin TONEY ([facility]) Globulin [Mass/volume] in Serum by calculation 2.5 g/dL_(calc) 1.9- 3.7 Globulin TONEY ([facility]) Albumin/Globulin [Mass Ratio] in Serum or Plasma 1.6 (calc) 1.0-2 .5 Albumin/globulin Ratio TONEY ([facility]) Bilirubin.total [Mass/volume] in Serum or Plasma 0.6 mg/dL 0.2-1 .2 Bilirubin, Total TONEY ([facility]) Bilirubin.direct [Mass/volume] in Serum or Plasma 0.1 mg/dL < or = 0.2 Bilirubin, Direct TONEY ([facility]) Bilirubin.indirect [Mass/volume] in Serum or Plasma 0.5 mg/dL_(calc ) 0.2-1.2 Bilirubin, Indirect TONEY ([facility]) Alkaline phosphatase [Enzymatic activity/volume] in Serum or Plasma 66 U/L 31-125 Alkaline Phosphatase TONEY ([facility]) Aspartate aminotransferase [Enzymatic activity/volume] in Serum or Plasma 34 U/L 10-30 Above high normal Ast TONEY ([facility]) Alanine aminotransferase [Enzymatic activity/volume] in Seru m or Plasma 38 U/L 6-29 Above high normal Alt TONEY ([facility]) ID Date Data Source [id number] 10/20/2020 09:58:00 AM EDT TONEY ([facility]) Name Value Range Interpretation Code Description Data Marian rce(s) Supporting Document(s) Gamma glutamyl transferase [Enzymatic activity/volume] in Serum or Plasma 60 U/L 3-55 Above high normal Ggt TONEY ([facility]) ID Date Data Source [id number] 10/20/2020 09:58:00 AM EDT TONEY ([facility]) Name Value Range Interpretation Code Description Data Marian rce(s) Supporting Document(s) Creatinine [Mass/volume] in Urine tnp Cr eatinine, Random Urine TONEY ([facility]) Microalbumin [Mass/volume] in Urine tnp Albumin, Urine TONEY ([facility]) ID Date Data Source [id number] 10/20/2020 09:58:00 AM EDT [place] ([facility]) Name Value Range Interpretation Code Description Data Marian rce(s) Supporting Document(s) Cholesterol [Mass/volume] in Serum or Plasma 178 mg/dL <200 Cholesterol, Total TONEY ([facility]) Cholesterol in HDL [Mass/volume] in Serum or Plasma 33 mg/dL > or = 50 Below low normal HDL Cholesterol TONEY ([facility]) Triglyceride [Mass/volume] in Serum or Plasma 336 mg/dL <150 Above high normal Triglycerides TONEY ([facility]) Cholesterol in LDL [Mass/volume] in Serum or Plasma by calculation 100 mg/dL_(calc) Above high normal LDL-cholesterol TONEY ([facility]) Cholesterol.total/Cholesterol in HDL [Mass Ratio] in Serum o r Plasma 5.4 (calc) <5.0 Above high normal Chol/hdlc Ratio TONEY ([facility]) Cholesterol non HDL [Mass/volume] in Serum or Plasma 145 mg/dL_( calc) <130 Above high normal Non HDL Cholesterol TONEY ([facility]) ID Date Data Source [id number] 10/20/2020 09:58:00 AM EDT [place] ([facility]) Name Value Range Interpretation Code Description Data Marian rce(s) Supporting Document(s) Hemoglobin A1c/Hemoglobin.total in Blood tnp Hemoglobin a1C TONEY ([facility]) ID Date Data Source [id number] 10/20/2020 09:58:00 AM EDT [facility]) Name Value Range Interpretation Code Description Data Marian rce(s) Supporting Document(s) Thyrotropin [Units/volume] in Serum or Plasma 1.11 mIU/L Tsh TONEY ([facility]) ID Date Data Source [id number] 10/20/2020 09:58:00 AM EDT [facility]) Name Value Range Interpretation Code Description Data Marian rce(s) Supporting Document(s) Ferritin [Mass/volume] in Serum or Plasma 17 NG/mL 16-232 [facility] ID Date Data Source [id number] 10/20/2020 09:58:00 AM EDT [facility]) Name Value Range Interpretation Code Description Data Marian rce(s) Supporting Document(s) Leukocytes [#/volume] in Blood by Automated count tnp [facility] ID Date Data Source [id number] 10/20/2020 09:58:00 AM EDT TONEY ([facility]) Name Value Range Interpretation Code Description Data Marian rce(s) Supporting Document(s) Glucose [Mass/volume] in Serum or Plasma 390 mg/dL 65-99 Above high normal Glucose TONEY ([facility]) Urea nitrogen [Mass/volume] in Serum or Plasma 11 mg/dL 7-25 [facility] Nitrogen (BUN) [facility] Creatinine [Mass/volume] in Serum or Plasma 0.63 mg/dL 0.50-1.10 Creatinine TONEY ([facility]) Glomerular filtration rate/1.73 sq M.pre dicted among blacks [Volume Rate/Area] in Serum, Plasma or Blood by Creatinine-based formula (CKD-EPI) 128 mL/min/1.73m2 > or = 60 eGFR TONEY ([facility]) Glomerular filtration rate/1.73 sq M.pre dicted among non-blacks [Volume Rate/Area] in Serum, Plasma or Blood by Creatinine-based formula (CKD-EPI) 111 mL/min/1.73m2 > or = 60 eGFR Non-afr. [place] TONEY ([facility]) Sodium [Moles/volume] in Serum or Plasma 136 mmol/L 135-146 Sodium TONEY ([facility]) Urea nitrogen/Creatinine [Mass Ratio] in Serum or Plasma not applic able 6-22 BUN/creatinine Ratio TONEY ([facility]) Potassium [Moles/volume] in Serum or Plasma 4.7 mmol/L 3.5-5.3 [facility] Chloride [Moles/volume] in Serum or Plasma 101 mmol/L 98-110 Chloride TONEY ([facility]) Calcium [Mass/volume] in Serum or Plasma 8.9 mg/dL 8.6-10.2 Calcium TONEY ([facility]) Carbon dioxide, total [Moles/volume] in Serum or Plasma 18 mmol/ L 20-32 Below low normal Carbon Dioxide TONEY ([facility]) Protein [Mass/volume] in Serum or Plasma 6.5 g/dL 6.1-8.1 Protein, Total TONEY ([facility]) Albumin [Mass/volume] in Serum or Plasma 4.0 g/dL 3.6-5.1 Albumin TONEY ([facility]) Globulin [Mass/volume] in Serum by calculation 2.5 g/dL_(calc) 1.9- 3.7 Globulin TONEY ([facility]) Albumin/Globulin [Mass Ratio] in Serum or Plasma 1.6 (calc) 1.0-2 .5 Albumin/globulin Ratio [place] ([facility]) Bilirubin.total [Mass/volume] in Serum or Plasma 0.6 mg/dL 0.2-1 .2 Bilirubin, Total TONEY ([facility]) Alkaline phosphatase [Enzymatic activity/volume] in Serum or Plasma 66 U/L 31-125 Alkaline Phosphatase TONEY ([facility]) Aspartate aminotransferase [Enzymatic activity/volume] in Serum or Plasma 34 U/L 10-30 Above high normal Ast TONEY ([facility]) comment Comment TONEY ([facility]) Alanine aminotransferase [Enzymatic activity/volume] in Seru m or Plasma 38 U/L 6-29 Above high normal Alt TONEY ([facility]) ID Date Data Source [id number] 10/20/2020 09:58:00 AM EDT [place] ([facility]) Name Value Range Interpretation Code Description Data Marian rce(s) Supporting Document(s) Protein [Mass/volume] in Serum or Plasma 6.5 g/dL 6.1-8.1 Protein, Total TONEY ([facility]) Albumin [Mass/volume] in Serum or Plasma 4.0 g/dL 3.6-5.1 Albumin TONEY ([facility]) Globulin [Mass/volume] in Serum by calculation 2.5 g/dL_(calc) 1.9- 3.7 Globulin TONEY ([facility]) Albumin/Globulin [Mass Ratio] in Serum or Plasma 1.6 (calc) 1.0-2 .5 Albumin/globulin Ratio TONEY ([facility]) Bilirubin.total [Mass/volume] in Serum or Plasma 0.6 mg/dL 0.2-1 .2 Bilirubin, Total TONEY ([facility]) Bilirubin.indirect [Mass/volume] in Serum or Plasma 0.5 mg/dL_(calc ) 0.2-1.2 Bilirubin, Indirect TONEY ([facility]) Bilirubin.direct [Mass/volume] in Serum or Plasma 0.1 mg/dL < or = 0.2 Bilirubin, Direct TONEY ([facility]) Alkaline phosphatase [Enzymatic activity/volume] in Serum or Plasma 66 U/L 31-125 Alkaline Phosphatase TONEY ([facility]) Aspartate aminotransferase [Enzymatic activity/volume] in Serum or Plasma 34 U/L 10-30 Above high normal Ast TONEY ([facility]) Alanine aminotransferase [Enzymatic activity/volume] in Seru m or Plasma 38 U/L 6-29 Above high normal Alt TONEY ([facility]) ID Date Data Source [id number] 10/20/2020 09:58:00 AM EDT [place] ([facility]) Name Value Range Interpretation Code Description Data Marian rce(s) Supporting Document(s) Gamma glutamyl transferase [Enzymatic activity/volume] in Serum or Plasma 60 U/L 3-55 Above high normal Ggt TONEY ([facility]) ID Date Data Source [id number] 10/20/2020 09:58:00 AM EDT [place] ([facility]) Name Value Range Interpretation Code Description Data Marian rce(s) Supporting Document(s) Creatinine [Mass/volume] in Urine tnp Cr eatinine, Random Urine TONEY ([facility]) Microalbumin [Mass/volume] in Urine tnp Albumin, Urine TONEY ([facility]) ID Date Data Source [id number] 10/20/2020 09:58:00 AM EDT [facility]) Name Value Range Interpretation Code Description Data Marian rce(s) Supporting Document(s) Cholesterol [Mass/volume] in Serum or Plasma 178 mg/dL <200 Cholesterol, Total TONEY ([facility]) Cholesterol in HDL [Mass/volume] in Serum or Plasma 33 mg/dL > or = 50 Below low normal HDL Cholesterol TONEY ([facility]) Triglyceride [Mass/volume] in Serum or Plasma 336 mg/dL <150 Above high normal Triglycerides TONEY ([facility]) Cholesterol.total/Cholesterol in HDL [Mass Ratio] in Serum o r Plasma 5.4 (calc) <5.0 Above high normal Chol/hdlc Ratio TONEY ([facility]) Cholesterol in LDL [Mass/volume] in Serum or Plasma by calculation 100 mg/dL_(calc) Above high normal LDL-cholesterol TONEY ([facility]) Cholesterol non HDL [Mass/volume] in Serum or Plasma 145 mg/dL_( calc) <130 Above high normal Non HDL Cholesterol [facility]) ID Date Data Source [id number] 10/14/2020 09:52:00 AM EDT [place] ([facility], ) Name Value Range Interpretation Code Description Data Marian rce(s) Supporting Document(s) Surgical pathology study Laboratory test result [facility] ([facility], ) FINAL DIAGNOSIS Soft tissue, left lower leg nodule, excision: Fibroconnective tissue with extensive granulation, inorganic foreign material, and hemosiderin laden macrophages, suggestive for foreign body and associated reactive changes. No evidence for malignancy. 10/18/2020 - 1358 CLINICAL DIAGNOSIS Nodule left lower leg 10/15/20201336 GROSS DIAGNOSIS Received in formalin labeled "nodule left lower leg" and consists of one fragment of ernandez-blanco tissue measuring 1.3 x 1.0 x 0.6 cm. Sectioning of the specimen reveals a dark brown cystic lesion with possible calcific contents. Entirely submitted in one block after decalcification. -JOVITA 10/15/20201336 Signed MATTHEW MÉNDEZ MD 10/18/2020 1358 ID Date Data Source [id number] 09/27/2020 12:00:00 AM EDT [facility]) Name Value Range Interpretation Code Description Data Marian rce(s) Supporting Document(s) Lipase [Enzymatic activity/volume] in Serum or Plasma 20 U/L 7-60 [facility] ID Date Data Source [id number] 09/27/2020 12:00:00 AM EDT [facility]) Name Value Range Interpretation Code Description Data Marian rce(s) Supporting Document(s) Glucose [Mass/volume] in Serum or Plasma 379 mg/dL 65-99 Above high normal Glucose TONEY ([facility]) Urea nitrogen [Mass/volume] in Serum or Plasma 9 mg/dL 7-25 Urea Nitrogen (BUN) [facility]) Creatinine [Mass/volume] in Serum or Plasma 0.57 mg/dL 0.50-1.10 Creatinine TONEY ([facility]) Glomerular filtration rate/1.73 sq M.pre dicted among non-blacks [Volume Rate/Area] in Serum, Plasma or Blood by Creatinine-based formula (CKD-EPI) 114 mL/min/1.73m2 > or = 60 eGFR Non-afr. [place] TONEY ([facility]) Glomerular filtration rate/1.73 sq M.pre dicted among blacks [Volume Rate/Area] in Serum, Plasma or Blood by Creatinine-based formula (CKD-EPI) 133 mL/min/1.73m2 > or = 60 eGFR TONEY ([facility]) Sodium [Moles/volume] in Serum or Plasma 135 mmol/L 135-146 Sodium TONEY ([facility]) Urea nitrogen/Creatinine [Mass Ratio] in Serum or Plasma not applic able 6-22 [facility]UN[facility]inine [facility] Potassium [Moles/volume] in Serum or Plasma 3.9 mmol/L 3.5-5.3 Potassium [place] ([facility]) Chloride [Moles/volume] in Serum or Plasma 98 mmol/L 98-110 Chloride TONEY ([facility]) Carbon dioxide, total [Moles/volume] in Serum or Plasma 26 mmol/L 20-32 Carbon Dioxide TONEY ([facility]) Calcium [Mass/volume] in Serum or Plasma 8.9 mg/dL 8.6-10.2 Calcium TONEY ([facility]) Albumin [Mass/volume] in Serum or Plasma 3.9 g/dL 3.6-5.1 Albumin TONEY ([facility]) Protein [Mass/volume] in Serum or Plasma 6.4 g/dL 6.1-8.1 Protein, Total TONEY ([facility]) Globulin [Mass/volume] in Serum by calculation 2.5 g/dL_(calc) 1.9- 3.7 Globulin TONEY ([facility]) Albumin/Globulin [Mass Ratio] in Serum or Plasma 1.6 (calc) 1.0-2 .5 Albumin/globulin Ratio TONEY ([facility]) Aspartate aminotransferase [Enzymatic activity/volume] in Serum or Plasma 103 U/L 10-30 Above high normal Ast TONEY ([facility]) Bilirubin.total [Mass/volume] in Serum or Plasma 0.7 mg/dL 0.2-1 .2 Bilirubin, Total TONEY ([facility]) Alkaline phosphatase [Enzymatic activity/volume] in Serum or Plasma 115 U/L 31-125 Alkaline Phosphatase TONEY ([facility]) Alanine aminotransferase [Enzymatic activity/volume] in Seru m or Plasma 116 U/L 6-29 Above high normal Alt TONEY ([facility]) ID Date Data Source [id number] 09/27/2020 12:00:00 AM EDT TONEY ([facility]) Name Value Range Interpretation Code Description Data Marian rce(s) Supporting Document(s) Lipase [Enzymatic activity/volume] in Serum or Plasma 20 U/L 7-60 Lipase TONEY ([facility]) ID Date Data Source [id number] 09/27/2020 12:00:00 AM EDT [place] ([facility]) Name Value Range Interpretation Code Description Data Marian rce(s) Supporting Document(s) Glucose [Mass/volume] in Serum or Plasma 379 mg/dL 65-99 Above high normal Glucose TONEY ([facility]) Urea nitrogen [Mass/volume] in Serum or Plasma 9 mg/dL 7-25 Urea Nitrogen (BUN) TONEY ([facility]) Creatinine [Mass/volume] in Serum or Plasma 0.57 mg/dL 0.50-1.10 Creatinine TONEY ([facility]) Glomerular filtration rate/1.73 sq M.pre dicted among blacks [Volume Rate/Area] in Serum, Plasma or Blood by Creatinine-based formula (CKD-EPI) 133 mL/min/1.73m2 > or = 60 eGFR TONEY (No [facility]) Glomerular filtration rate/1.73 sq M.pre dicted among non-blacks [Volume Rate/Area] in Serum, Plasma or Blood by Creatinine-based formula (CKD-EPI) 114 mL/min/1.73m2 > or = 60 eGFR Non-afr. [place] TONEY ([facility]) Sodium [Moles/volume] in Serum or Plasma 135 mmol/L 135-146 Sodium TONEY ([facility]) Potassium [Moles/volume] in Serum or Plasma 3.9 mmol/L 3.5-5.3 Potassium TONEY ([facility]) Urea nitrogen/Creatinine [Mass Ratio] in Serum or Plasma not applic able 6-22 BUN/creatinine Ratio TONEY ([facility]) Carbon dioxide, total [Moles/volume] in Serum or Plasma 26 mmol/L 20-32 Carbon Dioxide TONEY ([facility]) Chloride [Moles/volume] in Serum or Plasma 98 mmol/L 98-110 Chloride TONEY ([facility]) Calcium [Mass/volume] in Serum or Plasma 8.9 mg/dL 8.6-10.2 Calcium TONEY ([facility]) Protein [Mass/volume] in Serum or Plasma 6.4 g/dL 6.1-8.1 [facility], [facility] Globulin [Mass/volume] in Serum by calculation 2.5 g/dL_(calc) 1.9- 3.7 Globulin TONEY ([facility]) Albumin [Mass/volume] in Serum or Plasma 3.9 g/dL 3.6-5.1 Albumin TONEY ([facility]) Albumin/Globulin [Mass Ratio] in Serum or Plasma 1.6 (calc) 1.0-2 .5 Albumin/globulin Ratio TONEY ([facility]) Alkaline phosphatase [Enzymatic activity/volume] in Serum or Plasma 115 U/L 31-125 Alkaline Phosphatase TONEY ([facility]) Bilirubin.total [Mass/volume] in Serum or Plasma 0.7 mg/dL 0.2-1 .2 Bilirubin, Total TONEY ([facility]) Alanine aminotransferase [Enzymatic activity/volume] in Seru m or Plasma 116 U/L 6-29 Above high normal Alt TONEY ([facility]) Aspartate aminotransferase [Enzymatic activity/volume] in Serum or Plasma 103 U/L 10-30 Above high normal Ast TONEY ([facility]) ID Date Data Source [id number] 09/27/2020 12:00:00 AM EDT [facility]) Name Value Range Interpretation Code Description Data Marian rce(s) Supporting Document(s) Lipase [Enzymatic activity/volume] in Serum or Plasma 20 U/L 7-60 [facility] ID Date Data Source [id number] 09/27/2020 12:00:00 AM EDT TONEY ([facility]) Name Value Range Interpretation Code Description Data Marian rce(s) Supporting Document(s) Glucose [Mass/volume] in Serum or Plasma 379 mg/dL 65-99 Above high normal Glucose [facility] [facility] Urea nitrogen [Mass/volume] in Serum or Plasma 9 mg/dL 7-25 Urea Nitrogen (BUN) [facility] ([facility]) Creatinine [Mass/volume] in Serum or Plasma 0.57 mg/dL 0.50-1.10 Creatinine [facility] ([facility]) Glomerular filtration rate/1.73 sq M.pre dicted among blacks [Volume Rate/Area] in Serum, Plasma or Blood by Creatinine-based formula (CKD-EPI) 133 mL/min/1.73m2 > or = 60 eGFR TONE[facility] ([facility]) Glomerular filtration rate/1.73 sq M.pre dicted among non-blacks [Volume Rate/Area] in Serum, Plasma or Blood by Creatinine-based formula (CKD-EPI) 114 mL/min/1.73m2 > or = 60 eGFR Non-afr. [place] [facility]ONE[facility] ([facility]) Urea nitrogen/Creatinine [Mass Ratio] in Serum or Plasma not applic able 6-22 BUN/creatinine Ratio [facility] ([facility]) Sodium [Moles/volume] in Serum or Plasma 135 mmol/L 135-146 Sodium [place] ([facility]) Potassium [Moles/volume] in Serum or Plasma 3.9 mmol/L 3.5-5.3 Potassium [place] ([facility]) Calcium [Mass/volume] in Serum or Plasma 8.9 mg/dL 8.6-10.2 Calcium [place] ([facility]) Carbon dioxide, total [Moles/volume] in Serum or Plasma 26 mmol/L 20-32 Carbon Dioxide [place] ([facility]) Chloride [Moles/volume] in Serum or Plasma 98 mmol/L 98-110 Chloride [place] ([facility]) Albumin [Mass/volume] in Serum or Plasma 3.9 g/dL 3.6-5.1 Albumin [place] ([facility]) Protein [Mass/volume] in Serum or Plasma 6.4 g/dL 6.1-8.1 Protein, Total [facility]) Globulin [Mass/volume] in Serum by calculation 2.5 g/dL_(calc) 1.9- 3.7 Globulin [place] ([facility]) Albumin/Globulin [Mass Ratio] in Serum or Plasma 1.6 (calc) 1.0-2 .5 Albumin/globulin Ratio [facility]) Bilirubin.total [Mass/volume] in Serum or Plasma 0.7 mg/dL 0.2-1 .2 Bilirubin, Total [place] ([facility]) Alanine aminotransferase [Enzymatic activity/volume] in Seru m or Plasma 116 U/L 6-29 Above high normal Alt TONE[facility] ([facility]) Alkaline phosphatase [Enzymatic activity/volume] in Serum or Plasma 115 U/L 31-125 Alkaline Phosphatase [facility]ONE[facility] ([facility]) Aspartate aminotransferase [Enzymatic activity/volume] in Serum or Plasma 103 U/L 10-30 Above high normal Ast TONEY ([facility]) ID Date Data Source [id number] 09/27/2020 12:00:00 AM EDT [facility]ONE[facility] ([facility]) Name Value Range Interpretation Code Description Data Marian rce(s) Supporting Document(s) Lipase [Enzymatic activity/volume] in Serum or Plasma 20 U/L 7-60 [facility] Date Data Source [id number] 09/27/2020 12:00:00 [facility] Name Value Range Interpretation Code Description Data Marian rce(s) Supporting Document(s) Glucose [Mass/volume] in Serum or Plasma 379 mg/dL 65-99 Above high normal Glucose [facility] ([facility]) Creatinine [Mass/volume] in Serum or Plasma 0.57 mg/dL 0.50-1.10 Creatinine [facility] ([facility]) Urea nitrogen [Mass/volume] in Serum or Plasma 9 mg/dL 7-25 Urea Nitrogen (BUN) [facility] ([facility]) Urea nitrogen/Creatinine [Mass Ratio] in Serum or Plasma not applic able 6-22 BUN/creatinine Ratio [place] ([facility]) Glomerular filtration rate/1.73 sq M.pre dicted among blacks [Volume Rate/Area] in Serum, Plasma or Blood by Creatinine-based formula (CKD-EPI) 133 mL/min/1.73m2 > or = 60 eGFR [facility]ONE[facility] ([facility]) Glomerular filtration rate/1.73 sq M.pre dicted among non-blacks [Volume Rate/Area] in Serum, Plasma or Blood by Creatinine-based formula (CKD-EPI) 114 mL/min/1.73m2 > or = 60 eGFR Non-afr. [place] [facility] ([facility]) Sodium [Moles/volume] in Serum or Plasma 135 mmol/L 135-146 Sodium [facility] ([facility]) Potassium [Moles/volume] in Serum or Plasma 3.9 mmol/L 3.5-5.3 Potassium [place] ([facility]) Chloride [Moles/volume] in Serum or Plasma 98 mmol/L 98-110 Chloride [facility] ([facility]) Carbon dioxide, total [Moles/volume] in Serum or Plasma 26 mmol/L 20-32 Carbon Dioxide [facility] ([facility]) Calcium [Mass/volume] in Serum or Plasma 8.9 mg/dL 8.6-10.2 Calcium [place] ([facility]) Protein [Mass/volume] in Serum or Plasma 6.4 g/dL 6.1-8.1 Protein, Total [facility] ([facility]) Albumin [Mass/volume] in Serum or Plasma 3.9 g/dL 3.6-5.1 Albumin [place] ([facility]) Globulin [Mass/volume] in Serum by calculation 2.5 g/dL_(calc) 1.9- 3.7 Globulin [place] ([facility]) Bilirubin.total [Mass/volume] in Serum or Plasma 0.7 mg/dL 0.2-1 .2 Bilirubin, Total [facility]) Albumin/Globulin [Mass Ratio] in Serum or Plasma 1.6 (calc) 1.0-2 .5 Albumin/globulin Ratio [place] ([facility]) Alkaline phosphatase [Enzymatic activity/volume] in Serum or Plasma 115 U/L 31-125 Alkaline Phosphatase [facility] ([facility]) Alanine aminotransferase [Enzymatic activity/volume] in Seru m or Plasma 116 U/L 6-29 Above high normal Alt [facility] ([facility]) Aspartate aminotransferase [Enzymatic activity/volume] in Serum or Plasma 103 U/L 10-30 Above high normal Ast [facility] ([facility]) ID Date Data Source [id number] 09/27/2020 12:00:00 AM EDT [place] ([facility]) Name Value Range Interpretation Code Description Data Marian rce(s) Supporting Document(s) Lipase [Enzymatic activity/volume] in Serum or Plasma 20 U/L 7-60 Lipase [facility] ([facility]) ID Date Data Source [id number] 09/27/2020 12:00:00 AM EDT [facility] ([facility]) Name Value Range Interpretation Code Description Data Marian rce(s) Supporting Document(s) Glucose [Mass/volume] in Serum or Plasma 379 mg/dL 65-99 Above high normal Glucose [facility] ([facility]) Urea nitrogen [Mass/volume] in Serum or Plasma 9 mg/dL 7-25 Urea Nitrogen (BUN) [facility] ([facility]) Glomerular filtration rate/1.73 sq M.pre dicted among blacks [Volume Rate/Area] in Serum, Plasma or Blood by Creatinine-based formula (CKD-EPI) 133 mL/min/1.73m2 > or = 60 eGFR [facility] ([facility]) Creatinine [Mass/volume] in Serum or Plasma 0.57 mg/dL 0.50-1.10 Creatinine [facility] ([facility]) Glomerular filtration rate/1.73 sq M.pre dicted among non-blacks [Volume Rate/Area] in Serum, Plasma or Blood by Creatinine-based formula (CKD-EPI) 114 mL/min/1.73m2 > or = 60 eGFR Non-afr. [place] [facility] ([facility]) Sodium [Moles/volume] in Serum or Plasma 135 mmol/L 135-146 Sodium [place] ([facility]) Urea nitrogen/Creatinine [Mass Ratio] in Serum or Plasma not applic able 6-22 BUN/creatinine Ratio [place] ([facility]) Chloride [Moles/volume] in Serum or Plasma 98 mmol/L 98-110 Chloride [facility] ([facility]) Potassium [Moles/volume] in Serum or Plasma 3.9 mmol/L 3.5-5.3 Potassium [place] ([facility]) Carbon dioxide, total [Moles/volume] in Serum or Plasma 26 mmol/L 20-32 Carbon Dioxide [place] ([facility]) Protein [Mass/volume] in Serum or Plasma 6.4 g/dL 6.1-8.1 Protein, Total [facility] ([facility]) Calcium [Mass/volume] in Serum or Plasma 8.9 mg/dL 8.6-10.2 Calcium [place] ([facility]) Globulin [Mass/volume] in Serum by calculation 2.5 g/dL_(calc) 1.9- 3.7 Globulin [place] ([facility]) Albumin [Mass/volume] in Serum or Plasma 3.9 g/dL 3.6-5.1 Albumin [place] ([facility]) Albumin/Globulin [Mass Ratio] in Serum or Plasma 1.6 (calc) 1.0-2 .5 Albumin/globulin Ratio [place] ([facility]) Alkaline phosphatase [Enzymatic activity/volume] in Serum or Plasma 115 U/L 31-125 Alkaline Phosphatase [facility] ([facility]) Aspartate aminotransferase [Enzymatic activity/volume] in Serum or Plasma 103 U/L 10-30 Above high normal Ast [facility] ([facility]) Bilirubin.total [Mass/volume] in Serum or Plasma 0.7 mg/dL 0.2-1 .2 Bilirubin, Total [facility] ([facility]) Alanine aminotransferase [Enzymatic activity/volume] in Seru m or Plasma 116 U/L 6-29 Above high normal Alt [facility] ([facility]) ID Date Data Source [id number] 09/27/2020 12:00:00 AM EDT [facility]) Name Value Range Interpretation Code Description Data Marian rce(s) Supporting Document(s) Lipase [Enzymatic activity/volume] in Serum or Plasma 20 U/L 7-60 Lipase [facility] ([facility]) ID Date Data Source [id number] 09/27/2020 12:00:00 AM EDT [facility]) Name Value Range Interpretation Code Description Data Marian rce(s) Supporting Document(s) Glucose [Mass/volume] in Serum or Plasma 379 mg/dL 65-99 Above high normal Glucose [facility] ([facility]) Urea nitrogen [Mass/volume] in Serum or Plasma 9 mg/dL 7-25 Urea Nitrogen (BUN) [facility] ([facility]) Creatinine [Mass/volume] in Serum or Plasma 0.57 mg/dL 0.50-1.10 Creatinine [place] ([facility]) Glomerular filtration rate/1.73 sq M.pre dicted among blacks [Volume Rate/Area] in Serum, Plasma or Blood by Creatinine-based formula (CKD-EPI) 133 mL/min/1.73m2 > or = 60 eGFR TONEY ([facility]) Glomerular filtration rate/1.73 sq M.pre dicted among non-blacks [Volume Rate/Area] in Serum, Plasma or Blood by Creatinine-based formula (CKD-EPI) 114 mL/min/1.73m2 > or = 60 eGFR Non-afr. [place] [facility] ([facility]) Urea nitrogen/Creatinine [Mass Ratio] in Serum or Plasma not applic able 6-22 BUN/creatinine Ratio [place] ([facility]) Chloride [Moles/volume] in Serum or Plasma 98 mmol/L 98-110 Chloride [facility] ([facility]) Sodium [Moles/volume] in Serum or Plasma 135 mmol/L 135-146 Sodium [place] ([facility]) Potassium [Moles/volume] in Serum or Plasma 3.9 mmol/L 3.5-5.3 Potassium [place] ([facility]) Calcium [Mass/volume] in Serum or Plasma 8.9 mg/dL 8.6-10.2 Calcium [place] ([facility]) Carbon dioxide, total [Moles/volume] in Serum or Plasma 26 mmol/L 20-32 Carbon Dioxide [facility] ([facility]) Protein [Mass/volume] in Serum or Plasma 6.4 g/dL 6.1-8.1 [facility] Albumin/Globulin [Mass Ratio] in Serum or Plasma 1.6 (calc) 1.0-2 .5 Albumin/globulin Ratio [place] ([facility]) Globulin [Mass/volume] in Serum by calculation 2.5 g/dL_(calc) 1.9- 3.7 Globulin [place] ([facility]) Albumin [Mass/volume] in Serum or Plasma 3.9 g/dL 3.6-5.1 Albumin [place] ([facility]) Bilirubin.total [Mass/volume] in Serum or Plasma 0.7 mg/dL 0.2-1 .2 Bilirubin, Total [facility] ([facility]) Aspartate aminotransferase [Enzymatic activity/volume] in Serum or Plasma 103 U/L 10-30 Above high normal Ast [facility] ([facility]) Alkaline phosphatase [Enzymatic activity/volume] in Serum or Plasma 115 U/L 31-125 Alkaline Phosphatase [place] ([facility]) Alanine aminotransferase [Enzymatic activity/volume] in Seru m or Plasma 116 U/L 6-29 Above high normal Alt [place] ([facility]) ID Date Data Source [id number] 09/27/2020 12:00:00 AM EDT [facility]) Name Value Range Interpretation Code Description Data Marian rce(s) Supporting Document(s) Lipase [Enzymatic activity/volume] in Serum or Plasma 20 U/L 7-60 Lipase [facility]) ID Date Data Source [id number] 09/27/2020 12:00:00 AM EDT [facility]) Name Value Range Interpretation Code Description Data Marian rce(s) Supporting Document(s) Glucose [Mass/volume] in Serum or Plasma 379 mg/dL 65-99 Above high normal Glucose [facility] ([facility]) Urea nitrogen [Mass/volume] in Serum or Plasma 9 mg/dL 7-25 Urea Nitrogen (BUN) [facility] ([facility]) Creatinine [Mass/volume] in Serum or Plasma 0.57 mg/dL 0.50-1.10 Creatinine [place] ([facility]) Glomerular filtration rate/1.73 sq M.pre dicted among non-blacks [Volume Rate/Area] in Serum, Plasma or Blood by Creatinine-based formula (CKD-EPI) 114 mL/min/1.73m2 > or = 60 eGFR Non-afr. [place] [facility] ([facility]) Glomerular filtration rate/1.73 sq M.pre dicted among blacks [Volume Rate/Area] in Serum, Plasma or Blood by Creatinine-based formula (CKD-EPI) 133 mL/min/1.73m2 > or = 60 eGFR [facility] ([facility]) Sodium [Moles/volume] in Serum or Plasma 135 mmol/L 135-146 Sodium [place] ([facility]) Potassium [Moles/volume] in Serum or Plasma 3.9 mmol/L 3.5-5.3 Potassium [place] ([facility]) Urea nitrogen/Creatinine [Mass Ratio] in Serum or Plasma not applic able 6-22 BUN/creatinine Ratio [place] ([facility]) Chloride [Moles/volume] in Serum or Plasma 98 mmol/L 98-110 Chloride [facility] ([facility]) Calcium [Mass/volume] in Serum or Plasma 8.9 mg/dL 8.6-10.2 Calcium [place] ([facility]) Carbon dioxide, total [Moles/volume] in Serum or Plasma 26 mmol/L 20-32 Carbon Dioxide [facility] ([facility]) Protein [Mass/volume] in Serum or Plasma 6.4 g/dL 6.1-8.1 Protein, Total [place] ([facility]) Albumin [Mass/volume] in Serum or Plasma 3.9 g/dL 3.6-5.1 Albumin [place] ([facility]) Globulin [Mass/volume] in Serum by calculation 2.5 g/dL_(calc) 1.9- 3.7 Globulin [facility]) Bilirubin.total [Mass/volume] in Serum or Plasma 0.7 mg/dL 0.2-1 .2 Bilirubin, Total [place] ([facility]) Albumin/Globulin [Mass Ratio] in Serum or Plasma 1.6 (calc) 1.0-2 .5 Albumin/globulin Ratio [place] ([facility]) Alkaline phosphatase [Enzymatic activity/volume] in Serum or Plasma 115 U/L 31-125 Alkaline Phosphatase [facility] ([facility]) Aspartate aminotransferase [Enzymatic activity/volume] in Serum or Plasma 103 U/L 10-30 Above high normal Ast [facility] ([facility]) Alanine aminotransferase [Enzymatic activity/volume] in Seru m or Plasma 116 U/L 6-29 Above high normal Alt [facility] ([facility]) ID Date Data Source [id number] 09/27/2020 12:00:00 AM EDT [facility]) Name Value Range Interpretation Code Description Data Marian rce(s) Supporting Document(s) Lipase [Enzymatic activity/volume] in Serum or Plasma 20 U/L 7-60 Lipase [place] ([facility]) ID Date Data Source [id number] 09/27/2020 12:00:00 AM EDT [facility]) Name Value Range Interpretation Code Description Data Marian rce(s) Supporting Document(s) Glucose [Mass/volume] in Serum or Plasma 379 mg/dL 65-99 Above high normal Glucose [facility] ([facility]) Urea nitrogen [Mass/volume] in Serum or Plasma 9 mg/dL 7-25 Urea Nitrogen (BUN) [place] ([facility]) Creatinine [Mass/volume] in Serum or Plasma 0.57 mg/dL 0.50-1.10 Creatinine [place] ([facility]) Glomerular filtration rate/1.73 sq M.pre dicted among non-blacks [Volume Rate/Area] in Serum, Plasma or Blood by Creatinine-based formula (CKD-EPI) 114 mL/min/1.73m2 > or = 60 eGFR Non-afr. [place] [facility] ([facility]) Glomerular filtration rate/1.73 sq M.pre dicted among blacks [Volume Rate/Area] in Serum, Plasma or Blood by Creatinine-based formula (CKD-EPI) 133 mL/min/1.73m2 > or = 60 eGFR [facility] ([facility]) Urea nitrogen/Creatinine [Mass Ratio] in Serum or Plasma not applic able 6-22 BUN/creatinine Ratio [place] ([facility]) Sodium [Moles/volume] in Serum or Plasma 135 mmol/L 135-146 [facility] Carbon dioxide, total [Moles/volume] in Serum or Plasma 26 mmol/L 20-32 Carbon Dioxide [place] ([facility]) Potassium [Moles/volume] in Serum or Plasma 3.9 mmol/L 3.5-5.3 Potassium [facility] ([facility]) Chloride [Moles/volume] in Serum or Plasma 98 mmol/L 98-110 Chloride [facility] ([facility]) Protein [Mass/volume] in Serum or Plasma 6.4 g/dL 6.1-8.1 Protein, Total [place] ([facility]) Calcium [Mass/volume] in Serum or Plasma 8.9 mg/dL 8.6-10.2 Calcium [place] ([facility]) Albumin/Globulin [Mass Ratio] in Serum or Plasma 1.6 (calc) 1.0-2 .5 Albumin/globulin Ratio [place] ([facility]) Globulin [Mass/volume] in Serum by calculation 2.5 g/dL_(calc) 1.9- 3.7 Globulin [place] ([facility]) Albumin [Mass/volume] in Serum or Plasma 3.9 g/dL 3.6-5.1 Albumin [place] ([facility]) Alkaline phosphatase [Enzymatic activity/volume] in Serum or Plasma 115 U/L 31-125 Alkaline Phosphatase [facility] ([facility]) Bilirubin.total [Mass/volume] in Serum or Plasma 0.7 mg/dL 0.2-1 .2 Bilirubin, Total [place] ([facility]) Aspartate aminotransferase [Enzymatic activity/volume] in Serum or Plasma 103 U/L 10-30 Above high normal Ast [facility] ([facility]) Alanine aminotransferase [Enzymatic activity/volume] in Seru m or Plasma 116 U/L 6-29 Above high normal Alt [facility] ([facility]) ID Date Data Source [id number] 09/27/2020 12:00:00 AM EDT [place] ([facility]) Name Value Range Interpretation Code Description Data Marian rce(s) Supporting Document(s) Lipase [Enzymatic activity/volume] in Serum or Plasma 20 U/L 7-60 Lipase [place] ([facility]) ID Date Data Source [id number] 09/27/2020 12:00:00 AM EDT [place] ([facility]) Name Value Range Interpretation Code Description Data Marian rce(s) Supporting Document(s) Glucose [Mass/volume] in Serum or Plasma 379 mg/dL 65-99 Above high normal Glucose [place] ([facility]) Urea nitrogen [Mass/volume] in Serum or Plasma 9 mg/dL 7-25 Urea Nitrogen (BUN) [place] ([facility]) Glomerular filtration rate/1.73 sq M.pre dicted among blacks [Volume Rate/Area] in Serum, Plasma or Blood by Creatinine-based formula (CKD-EPI) 133 mL/min/1.73m2 > or = 60 eGFR [facility] ([facility]) Glomerular filtration rate/1.73 sq M.pre dicted among non-blacks [Volume Rate/Area] in Serum, Plasma or Blood by Creatinine-based formula (CKD-EPI) 114 mL/min/1.73m2 > or = 60 eGFR Non-afr. [place] [facility] ([facility]) Creatinine [Mass/volume] in Serum or Plasma 0.57 mg/dL 0.50-1.10 Creatinine [place] ([facility]) Urea nitrogen/Creatinine [Mass Ratio] in Serum or Plasma not applic able 6-22 BUN/creatinine Ratio [place] ([facility]) Potassium [Moles/volume] in Serum or Plasma 3.9 mmol/L 3.5-5.3 Potassium [place] ([facility]) Sodium [Moles/volume] in Serum or Plasma 135 mmol/L 135-146 Sodium [place] ([facility]) Calcium [Mass/volume] in Serum or Plasma 8.9 mg/dL 8.6-10.2 Calcium [place] ([facility]) Carbon dioxide, total [Moles/volume] in Serum or Plasma 26 mmol/L 20-32 Carbon Dioxide [facility] ([facility]) Chloride [Moles/volume] in Serum or Plasma 98 mmol/L 98-110 [facility] Globulin [Mass/volume] in Serum by calculation 2.5 g/dL_(calc) 1.9- 3.7 Globulin [facility] ([facility]) Protein [Mass/volume] in Serum or Plasma 6.4 g/dL 6.1-8.1 Protein, Total [place] ([facility]) Albumin [Mass/volume] in Serum or Plasma 3.9 g/dL 3.6-5.1 Albumin [place] ([facility]) Albumin/Globulin [Mass Ratio] in Serum or Plasma 1.6 (calc) 1.0-2 .5 Albumin/globulin Ratio [place] ([facility]) Alkaline phosphatase [Enzymatic activity/volume] in Serum or Plasma 115 U/L 31-125 Alkaline Phosphatase [facility] ([facility]) Bilirubin.total [Mass/volume] in Serum or Plasma 0.7 mg/dL 0.2-1 .2 Bilirubin, Total [place] ([facility]) Aspartate aminotransferase [Enzymatic activity/volume] in Serum or Plasma 103 U/L 10-30 Above high normal Ast [facility] ([facility]) Alanine aminotransferase [Enzymatic activity/volume] in Seru m or Plasma 116 U/L 6-29 Above high normal Alt [facility] ([facility]) ID Date Data Source [id number] 09/22/2020 01:25:00 PM EDT [facility]) Name Value Range Interpretation Code Description Data Marian rce(s) Supporting Document(s) sars-cov-2 negative negative Sars-cov-2 [facility]) ID Date Data Source [id number] 09/22/2020 01:25:00 PM EDT [facility]) Name Value Range Interpretation Code Description Data Marian rce(s) Supporting Document(s) sars-cov-2 negative negative Sars-cov-2 [facility]) ID Date Data Source [id number] 09/22/2020 01:25:00 PM EDT [facility]) Name Value Range Interpretation Code Description Data Marian rce(s) Supporting Document(s) sars-cov-2 negative negative Sars-cov-2 [facility]) ID Date Data Source [id number] 09/22/2020 01:25:00 PM EDT [facility]) Name Value Range Interpretation Code Description Data Marian rce(s) Supporting Document(s) sars-cov-2 negative negative Sars-cov-2 [place] ([facility]) ID Date Data Source [id number] 09/22/2020 01:25:00 PM EDT [facility]) Name Value Range Interpretation Code Description Data Marian rce(s) Supporting Document(s) sars-cov-2 negative negative Sars-cov-2 [facility]) ID Date Data Source [id number] 09/22/2020 01:25:00 PM EDT [facility]) Name Value Range Interpretation Code Description Data Marian rce(s) Supporting Document(s) sars-cov-2 negative negative Sars-cov-2 [place] ([facility]) ID Date Data Source [id number] 09/22/2020 01:25:00 PM EDT [facility]) Name Value Range Interpretation Code Description Data Marian rce(s) Supporting Document(s) sars-cov-2 negative negative Sars-cov-2 [facility]) ID Date Data Source [id number] 09/22/2020 01:25:00 PM EDT [facility]) Name Value Range Interpretation Code Description Data Marian rce(s) Supporting Document(s) sars-cov-2 negative negative Sars-cov-2 [facility]) ID Date Data Source [id number] 09/22/2020 01:25:00 PM EDT [facility]) Name Value Range Interpretation Code Description Data Marian rce(s) Supporting Document(s) sars-cov-2 negative negative Sars-cov-2 [place] ([facility]) ID Date Data Source [id number] 09/22/2020 01:25:00 PM EDT [place] ([facility]) Name Value Range Interpretation Code Description Data Marian rce(s) Supporting Document(s) sars-cov-2 negative negative Sars-cov-2 [place] [place] ([facility]) ID Date Data Source [id number] 09/22/2020 01:22:00 PM EDT [facility] Name Value Range Interpretation Code Description Data Marian rce(s) Supporting Document(s) SARS coronavirus 2 RdRp gene [Presence] in Respiratory specimen by TANVI with probe detection Not detected [facility] This lab was ordered by [facility] and reported by [facility]. ID Date Data Source [id number] 09/20/2020 11:39:00 AM EDT [place] ([facility]) Name Value Range Interpretation Code Description Data Marian rce(s) Supporting Document(s) istat B-HCG < 5.0 Istat B-HCG [place] ([facility]) ID Date Data Source [id number] 09/20/2020 11:39:00 AM EDT [facility]) Name Value Range Interpretation Code Description Data Marian rce(s) Supporting Document(s) istat B-HCG < 5.0 Istat B-HCG [place] ([facility]) ID Date Data Source [id number] 09/20/2020 11:39:00 AM EDT [facility]) Name Value Range Interpretation Code Description Data Marian rce(s) Supporting Document(s) istat B-HCG < 5.0 Istat B-HCG [place] ([facility]) ID Date Data Source [id number] 09/20/2020 11:39:00 AM EDT [place] ([facility]) Name Value Range Interpretation Code Description Data Marian rce(s) Supporting Document(s) istat B-HCG < 5.0 Istat B-HCG [place] ([facility]) ID Date Data Source [id number] 09/20/2020 11:39:00 AM EDT [place] ([facility]) Name Value Range Interpretation Code Description Data Marian rce(s) Supporting Document(s) istat B-HCG < 5.0 Istat B-HCG [place] ([facility]) ID Date Data Source [id number] 09/20/2020 11:39:00 AM EDT [facility]) Name Value Range Interpretation Code Description Data Marian rce(s) Supporting Document(s) istat B-HCG < 5.0 Istat B-HCG [place] ([facility]) ID Date Data Source [id number] 09/20/2020 11:39:00 AM EDT [facility]) Name Value Range Interpretation Code Description Data Marian rce(s) Supporting Document(s) istat B-HCG < 5.0 Istat B-HCG [place] ([facility]) ID Date Data Source [id number] 09/20/2020 11:39:00 AM EDT [facility]) Name Value Range Interpretation Code Description Data Marian rce(s) Supporting Document(s) istat B-HCG < 5.0 Istat B-HCG [place] ([facility]) ID Date Data Source [id number] 09/20/2020 11:39:00 AM EDT [place] ([facility]) Name Value Range Interpretation Code Description Data Marian rce(s) Supporting Document(s) istat B-HCG < 5.0 Istat B-HCG [place] ([facility]) ID Date Data Source [id number] 09/20/2020 11:39:00 AM EDT [place] ([facility]) Name Value Range Interpretation Code Description Data Marian rce(s) Supporting Document(s) istat B-HCG < 5.0 Istat B-HCG [place] ([facility]) ID Date Data Source [id number] 09/20/2020 11:39[facility] Name Value Range Interpretation Code Description Data Marian rce(s) Supporting Document(s) istat B-HCG < 5.0 Istat B-HCG [place] ([facility]) ID Date Data Source [id number] 09/20/2020 11:37:00 AM EDT [place] ([facility]) Name Value Range Interpretation Code Description Data Marian rce(s) Supporting Document(s) istat HCT 43.0 % 38.0-51.0 Istat HCT [place] ([facility]) istat Ca++ 4.6 mg/dL 4.5-5.3 Istat Ca++ [place] ([facility]) istat sodium 137 mEq/L 136-145 Istat Sodium [place] ([facility]) istat potassium 4.2 mEq/L 3.5-5.1 Istat Potassium [place] ([facility]) istat glucose 339 mg/dL 70-105 Above high normal Istat Glucose A [place] ([facility]) istat BUN 10 mg/dL 8-26 Istat BUN [place] ([facility]) istat CO2 26.0 mm/L 23.0-27.0 Istat CO2 [place] ([facility]) istat chloride 99 mEq/L 98-109 Istat Chloride [place] ([facility]) istat creatinine 0.5 mg/dL 0.6-1.3 Below low normal Istat Creatin ine [place] ([facility]) ID Date Data Source [id number] 09/20/2020 11:37:00 AM EDT [place] ([facility]) Name Value Range Interpretation Code Description Data Marian rce(s) Supporting Document(s) istat glucose 339 mg/dL 70-105 Above high normal Istat Glucose A [facility]) istat HCT 43.0 % 38.0-51.0 Istat HCT [place] ([facility]) istat sodium 137 mEq/L 136-145 Istat Sodium [place] ([facility]) istat potassium 4.2 mEq/L 3.5-5.1 Istat Potassium [place] ([facility]) istat chloride 99 mEq/L 98-109 Istat Chloride [place] ([facility]) istat Ca++ 4.6 mg/dL 4.5-5.3 Istat Ca++ [place] ([facility]) istat creatinine 0.5 mg/dL 0.6-1.3 Below low normal Istat Creatin ine [place] ([facility]) istat CO2 26.0 mm/L 23.0-27.0 Istat CO2 [place] ([facility]) istat BUN 10 mg/dL 8-26 Istat BUN [place] ([facility]) ID Date Data Source [id number] 09/20/2020 11:37:00 AM EDT [facility]) Name Value Range Interpretation Code Description Data Marian rce(s) Supporting Document(s) istat glucose 339 mg/dL 70-105 Above high normal Istat Glucose A [facility] ([facility]) istat HCT 43.0 % 38.0-51.0 Istat HCT [place] ([facility]) istat sodium 137 mEq/L 136-145 Istat Sodium [place] (No [facility]) istat Ca++ 4.6 mg/dL 4.5-5.3 Istat Ca++ [place] ([facility]) istat potassium 4.2 mEq/L 3.5-5.1 Istat Potassium [place] ([facility]) istat chloride 99 mEq/L 98-109 Istat Chloride [place] ([facility]) istat CO2 26.0 mm/L 23.0-27.0 Istat CO2 [place] ([facility]) istat BUN 10 mg/dL 8-26 Istat BUN [place] ([facility]) istat creatinine 0.5 mg/dL 0.6-1.3 Below low normal Istat Creatin ine [place] ([facility]) ID Date Data Source [id number] 09/20/2020 11:37:00 AM EDT [place] ([facility]) Name Value Range Interpretation Code Description Data Marian rce(s) Supporting Document(s) istat HCT 43.0 % 38.0-51.0 Istat HCT [place] ([facility]) istat glucose 339 mg/dL 70-105 Above high normal Istat Glucose A [place] ([facility]) istat sodium 137 mEq/L 136-145 Istat Sodium [place] (No [facility]) istat potassium 4.2 mEq/L 3.5-5.1 Istat Potassium [place] ([facility]) istat Ca++ 4.6 mg/dL 4.5-5.3 Istat Ca++ [place] ([facility]) istat chloride 99 mEq/L 98-109 Istat Chloride [place] ([facility]) istat BUN 10 mg/dL 8-26 Istat BUN [place] ([facility]) istat CO2 26.0 mm/L 23.0-27.0 Istat CO2 [place] ([facility]) istat creatinine 0.5 mg/dL 0.6-1.3 Below low normal Istat Creatin ine [place] ([facility]) ID Date Data Source [id number] 09/20/2020 11:37:00 AM EDT [place] ([facility]) Name Value Range Interpretation Code Description Data Marian rce(s) Supporting Document(s) istat glucose 339 mg/dL 70-105 Above high normal Istat Glucose A [place] ([facility]) istat HCT 43.0 % 38.0-51.0 Istat HCT [place] ([facility]) istat sodium 137 mEq/L 136-145 Istat Sodium [place] ([facility]) istat potassium 4.2 mEq/L 3.5-5.1 Istat Potassium [place] ([facility]) istat Ca++ 4.6 mg/dL 4.5-5.3 Istat Ca++ [place] ([facility]) istat creatinine 0.5 mg/dL 0.6-1.3 Below low normal Istat Creatin ine [place] ([facility]) istat BUN 10 mg/dL 8-26 Istat BUN [place] ([facility]) istat chloride 99 mEq/L 98-109 Istat Chloride [place] ([facility]) istat CO2 26.0 mm/L 23.0-27.0 Istat CO2 [place] ([facility]) ID Date Data Source [id number] 09/20/2020 11:37:00 AM EDT [place] ([facility]) Name Value Range Interpretation Code Description Data Marian rce(s) Supporting Document(s) istat HCT 43.0 % 38.0-51.0 Istat HCT [place] ([facility]) istat sodium 137 mEq/L 136-145 Istat Sodium [place] (No [facility]) istat potassium 4.2 mEq/L 3.5-5.1 Istat Potassium [place] ([facility]) istat glucose 339 mg/dL 70-105 Above high normal Istat Glucose A [place] ([facility]) istat BUN 10 mg/dL 8-26 Istat BUN [place] ([facility]) istat Ca++ 4.6 mg/dL 4.5-5.3 Istat Ca++ [place] ([facility]) istat chloride 99 mEq/L 98-109 Istat Chloride [place] ([facility]) istat CO2 26.0 mm/L 23.0-27.0 Istat CO2 [place] ([facility]) istat creatinine 0.5 mg/dL 0.6-1.3 Below low normal Istat Creatin ine [place] ([facility]) ID Date Data Source [id number] 09/20/2020 11:37:00 AM EDT [place] ([facility]) Name Value Range Interpretation Code Description Data Marian rce(s) Supporting Document(s) istat HCT 43.0 % 38.0-51.0 Istat HCT [place] ([facility]) istat glucose 339 mg/dL 70-105 Above high normal Istat Glucose A [place] ([facility]) istat sodium 137 mEq/L 136-145 Istat Sodium [place] (No [facility]) istat potassium 4.2 mEq/L 3.5-5.1 Istat Potassium [place] ([facility]) istat Ca++ 4.6 mg/dL 4.5-5.3 Istat Ca++ [place] ([facility]) istat CO2 26.0 mm/L 23.0-27.0 Istat CO2 [place] ([facility]) istat chloride 99 mEq/L 98-109 Istat Chloride [place] ([facility]) istat creatinine 0.5 mg/dL 0.6-1.3 Below low normal Istat Creatin ine [place] ([facility]) istat BUN 10 mg/dL 8-26 Istat BUN [place] ([facility]) ID Date Data Source [id number] 09/20/2020 11:37:00 AM EDT [place] ([facility]) Name Value Range Interpretation Code Description Data Marian rce(s) Supporting Document(s) istat HCT 43.0 % 38.0-51.0 Istat HCT [place] ([facility]) istat glucose 339 mg/dL 70-105 Above high normal Istat Glucose A [facility] ([facility]) istat sodium 137 mEq/L 136-145 Istat Sodium [place] ([facility]) istat potassium 4.2 mEq/L 3.5-5.1 Istat Potassium [place] ([facility]) istat chloride 99 mEq/L 98-109 Istat Chloride [place] ([facility]) istat Ca++ 4.6 mg/dL 4.5-5.3 Istat Ca++ [place] ([facility]) istat creatinine 0.5 mg/dL 0.6-1.3 Below low normal Istat Creatin ine [place] ([facility]) istat BUN 10 mg/dL 8-26 Istat BUN [place] ([facility]) istat CO2 26.0 mm/L 23.0-27.0 Istat CO2 [place] ([facility]) ID Date Data Source [id number] 09/20/2020 11:37:00 AM EDT [place] ([facility]) Name Value Range Interpretation Code Description Data Marian rce(s) Supporting Document(s) istat HCT 43.0 % 38.0-51.0 Istat HCT [place] ([facility]) istat glucose 339 mg/dL 70-105 Above high normal Istat Glucose A [facility] ([facility]) istat sodium 137 mEq/L 136-145 Istat Sodium [place] (No [facility]) istat potassium 4.2 mEq/L 3.5-5.1 Istat Potassium [place] ([facility]) istat Ca++ 4.6 mg/dL 4.5-5.3 Istat Ca++ [place] ([facility]) istat chloride 99 mEq/L 98-109 Istat Chloride [place] ([facility]) istat CO2 26.0 mm/L 23.0-27.0 Istat CO2 [place] ([facility]) istat BUN 10 mg/dL 8-26 Istat BUN [place] ([facility]) istat creatinine 0.5 mg/dL 0.6-1.3 Below low normal Istat Creatin ine [place] ([facility]) ID Date Data Source [id number] 09/20/2020 11:37:00 AM EDT [place] ([facility]) Name Value Range Interpretation Code Description Data Marian rce(s) Supporting Document(s) istat glucose 339 mg/dL 70-105 Above high normal Istat Glucose A [place] ([facility]) istat HCT 43.0 % 38.0-51.0 Istat HCT [place] ([facility]) istat potassium 4.2 mEq/L 3.5-5.1 Istat Potassium [place] ([facility]) istat Ca++ 4.6 mg/dL 4.5-5.3 Istat Ca++ [place] ([facility]) istat sodium 137 mEq/L 136-145 Istat Sodium [place] (No [facility]) istat CO2 26.0 mm/L 23.0-27.0 Istat CO2 [place] ([facility]) istat chloride 99 mEq/L 98-109 Istat Chloride [place] ([facility]) istat BUN 10 mg/dL 8-26 Istat BUN [place] ([facility]) istat creatinine 0.5 mg/dL 0.6-1.3 Below low normal Istat Creatin ine [place] ([facility]) ID Date Data Source [id number] 09/20/2020 11:37:00 AM EDT [place] ([facility]) Name Value Range Interpretation Code Description Data Marian rce(s) Supporting Document(s) istat glucose 339 mg/dL 70-105 Above high normal Istat Glucose A [place] ([facility]) istat HCT 43.0 % 38.0-51.0 Istat HCT [place] ([facility]) istat sodium 137 mEq/L 136-145 Istat Sodium [place] ([facility]) istat potassium 4.2 mEq/L 3.5-5.1 Istat Potassium [place] ([facility]) istat Ca++ 4.6 mg/dL 4.5-5.3 Istat Ca++ [place] ([facility]) istat chloride 99 mEq/L 98-109 Istat Chloride [place] ([facility]) istat CO2 26.0 mm/L 23.0-27.0 Istat CO2 [place] ([facility]) istat creatinine 0.5 mg/dL 0.6-1.3 Below low normal Istat Creatin ine [place] ([facility]) istat BUN 10 mg/dL 8-26 Istat BUN [place] ([facility]) ID Date Data Source [id number] 09/07/2020 08:23:00 AM EDT [facility] ([facility]) Name Value Range Interpretation Code Description Data Marian rce(s) Supporting Document(s) Creatinine For GFR 0.54 mg/dL 0.55-1.30 [facility] ([facility]) Glomerular Filtration Rate Laboratory test result [facility] ([facility]) <content>Units are mL/min/1.73 m2</content>
<content></content>
<content>Chronic Kidney Disease Staging per NKF:</content>
<content></content>
<content>Stage I & II GFR >=60 Normal to Mildly Decreased</content>
<content>Stage III GFR 30- 59 Moderately Decreased</content>
<content>Stage IV GFR 15-29 Severely Decreased</content>
<content>Stage V GFR <15 Very Little GFR Left</content>
<content>ESRD GFR <15 on CERTIFIED TEACHER ASSISTANT</content>
<content></content> ID Date Data Source [id number] 09/07/2020 08:23:[address] [facility] ([facility]) Name Value Range Interpretation Code Description Data Marian rce(s) Supporting Document(s) Urea nitrogen [Mass/volume] in Serum or Plasma 14 mg/dL 7-[address] [facility] ([facility]) ID Date Data Source [id number] 06/30/2020 11:11:00 AM EDT [facility]) Name Value Range Interpretation Code Description Data Marian rce(s) Supporting Document(s) Hemoglobin A1c/Hemoglobin.total in Blood 11.2 % Hemoglobin a1C [facility]) estimated average glucose 275 mg/dL 60-110 Above high norm al Estimated Average Glucose [facility]) ID Date Data Source [id number] 06/30/2020 11:11:00 AM EDT [facility]) Name Value Range Interpretation Code Description Data Marian rce(s) Supporting Document(s) triglycerides level 563 mg/dL <150 Above high normal Triglycer ides Level [place] ([facility]) cholesterol risk ratio <5 Above high normal Choles terol Risk Ratio [place] ([facility]) cholesterol level 165 mg/dL <200 Cholesterol Level [place] ([facility]) non-HDL-C 139 mg/dL Non-hdl-c [place] ([facility]) HDL cholesterol 26 mg/dL >40 Below low normal HDL Cholestero l [facility]) ID Date Data Source [id number] 06/30/2020 11:11:00 AM EDT [place] ([facility]) Name Value Range Interpretation Code Description Data Marian rce(s) Supporting Document(s) glucose, fasting 341 mg/dL 70-100 Above high normal Glucose, Fas ting [place] ([facility]) sodium level 133 mEq/L 136-145 Below low normal Sodium Level [place] ([facility]) glomerular filtration rate > 60.0 >58 Glomerula r Filtration Rate [place] ([facility]) creatinine for GFR 0.58 mg/dL 0.55-1.30 Creatinine for GF R [place] ([facility]) blood urea nitrogen 10 mg/dL 7-18 Blood Urea Nitro gen [place] ([facility]) carbon dioxide level 26 mEq/L 21-32 Carbon Dioxide Level [place] ([facility]) chloride level 100 mEq/L 98-107 Chloride Level [place] ([facility]) potassium serum 4.1 mEq/L 3.5-5.1 Potassium Serum [place] ([facility]) anion gap 7 mEq/L 8-16 Below low normal Anion Gap [place] ( [facility]) AST/SGOT 33 U/L 7-37 AST/SGOT [place] ([facility]) calcium level 8.7 mg/dL 8.5-10.1 Calcium Level [place] ( [facility]) alkaline phosphatase 89 U/L 45-117 Alkaline Phosph atase [place] ([facility]) ALT/SGPT 52 U/L 12-78 ALT/SGPT [place] ([facility]) total protein 6.5 gm/dL 6.4-8.2 Total Protein [place] ( [facility]) bilirubin,total 0.4 mg/dL 0.2-1.0 Bilirubin,total [place] ([facility]) albumin 3.5 gm/dL 3.2-5.2 Albumin [place] ([facility]) albumin/globulin ratio 1.2-2.2 Albumin/globu claudia Ratio [place] ([facility]) ID Date Data Source [id number] 06/30/2020 11:11:00 AM EDT [place] ([facility]) Name Value Range Interpretation Code Description Data Marian rce(s) Supporting Document(s) white blood count 4.6 10 4.0-10.0 White Blood Count [place] ([facility]) hemoglobin 12.9 g/dL 12.0-15.5 Hemoglobin [place] ([facility]) red blood count 5.09 10 4.00-5.40 Red Blood Count [place] ([facility]) mean corpuscular hemoglobin 25.3 pg 27.0-33.0 Below low nor mal Mean Corpuscular Hemoglobin [place] ([facility]) mean corpuscular volume 79.4 fL 80.0-96.0 Below low normal Mean Corpuscular Volume [place] ([facility]) hematocrit 40.4 % 36.0-47.0 Hematocrit [place] ([facility]) red cell distribution width 14.3 % 11.5-14.5 Red Cell Distribution Width [place] ([facility]) mean corpuscular HGB conc 31.9 g/dL 32.0-36.5 Below low sudhir l Mean Corpuscular HGB Conc [place] ([facility]) platelet count, automated 146 10 150-450 Below low sudhir l Platelet Count, Automated [place] ([facility]) neutrophils % 52.6 % 36.0-66.0 Neutrophils % [place] ( [facility]) eos % 2.8 % 0.0-3.0 Eos % [facility] ([facility]) mono % 6.8 % 2.0-8.0 [place] % [facility] ([facility]) lymph % 36.0 % 24.0-44.0 Lymph % [facility] ([facility]) baso % 0.9 % 0.0-1.0 Baso % [place] ([facility]) nucleated red blood cell % 0.0 % 0-0 Nucleated Red Blood Cell % [place] ([facility]) immature granulocyte % 0.9 % 0-3.0 Immature Gran ulocyte % [place] ([facility]) neutrophils # 2.4 10 1.5-8.5 Neutrophils # [place] ( [facility]) eos # 0.1 10 0.0-0.5 Eos # [facility] ([facility] mono # 0.3 10 0.0-0.8 [place] # [facility] ([facility]) lymph # 1.7 10 1.5-5.0 Lymph # [facility] ([facility]) baso # 0.0 10 0.0-0.2 Baso # [facility] ([facility]) ID Date Data Source [id number] 06/30/2020 11:11:00 AM EDT [facility] ([facility]) Name Value Range Interpretation Code Description Data Marian rce(s) Supporting Document(s) estimated average glucose 275 mg/dL 60-110 Above high norm al Estimated Average Glucose [facility] ([facility]) Hemoglobin A1c/Hemoglobin.total in Blood 11.2 % Hemoglobin a1C [place] ([facility]) ID Date Data Source [id number] 06/30/2020 11:11:00 AM EDT [place] ([facility]) Name Value Range Interpretation Code Description Data Marian rce(s) Supporting Document(s) cholesterol level 165 mg/dL <200 Cholesterol Level [facility] ([facility]) HDL cholesterol 26 mg/dL >40 Below low normal HDL Cholestero l [facility] ([facility]) triglycerides level 563 mg/dL <150 Above high normal Triglycer ides Level [facility] ([facility]) cholesterol risk ratio <5 Above high normal Choles terol Risk Ratio [facility] ([facility]) non-HDL-C 139 mg/dL Non-hdl-c [facility] ([facility]) ID Date Data Source [id number] 06/30/2020 11:11:00 AM EDT [facility] ([facility]) Name Value Range Interpretation Code Description Data Marian rce(s) Supporting Document(s) blood urea nitrogen 10 mg/dL 7-18 Blood Urea Nitro gen [facility] ([facility]) glucose, fasting 341 mg/dL 70-100 Above high normal Glucose, Fas ting [facility] ([facility]) glomerular filtration rate > 60.0 >58 Glomerula r Filtration Rate [facility] ([facility]) creatinine for GFR 0.58 mg/dL 0.55-1.30 Creatinine for GF R [facility] ([facility]) chloride level 100 mEq/L 98-107 Chloride Level [facility] ([facility]) sodium level 133 mEq/L 136-145 Below low normal Sodium Level [facility] ([facility]) potassium serum 4.1 mEq/L 3.5-5.1 Potassium Serum [facility] ([facility]) anion gap 7 mEq/L 8-16 Below low normal Anion Gap [facility] ( [facility]) carbon dioxide level 26 mEq/L 21-32 Carbon Dioxide Level [facility] ([facility]) calcium level 8.7 mg/dL 8.5-10.1 Calcium Level [facility] ( [facility]) AST/SGOT 33 U/L 7-37 AST/SGOT [facility] ([facility]) ALT/SGPT 52 U/L 12-78 ALT/SGPT [facility] ([facility]) total protein 6.5 gm/dL 6.4-8.2 Total Protein [facility] ( [facility]) bilirubin,total 0.4 mg/dL 0.2-1.0 Bilirubin,total [facility] ([facility]) alkaline phosphatase 89 U/L 45-117 Alkaline Phosph atase [facility] ([facility]) albumin/globulin ratio 1.2-2.2 Albumin/globu claudia Ratio [facility] ([facility]) albumin 3.5 gm/dL 3.2-5.2 Albumin [facility] ([facility]) ID Date Data Source [id number] 06/30/2020 11:11:00 AM EDT [place] ([facility]) Name Value Range Interpretation Code Description Data Marian rce(s) Supporting Document(s) red blood count 5.09 10 4.00-5.40 Red Blood Count ATHE ([facility]) white blood count 4.6 10 4.0-10.0 White Blood Count TONEY ([facility]) mean corpuscular volume 79.4 fL 80.0-96.0 Below low normal Mean Corpuscular Volume TONEY ([facility]) hemoglobin 12.9 g/dL 12.0-15.5 Hemoglobin TONEY ([facility]) hematocrit 40.4 % 36.0-47.0 Hematocrit TONEY ([facility]) mean corpuscular HGB conc 31.9 g/dL 32.0-36.5 Below low sudhir l Mean Corpuscular HGB Conc TONEY ([facility]) mean corpuscular hemoglobin 25.3 pg 27.0-33.0 Below low nor mal Mean Corpuscular Hemoglobin TONEY ([facility]) red cell distribution width 14.3 % 11.5-14.5 Red Cell Distribution Width [place] ([facility]) platelet count, automated 146 10 150-450 Below low sudhir l Platelet Count, Automated TONEY ([facility]) neutrophils % 52.6 % 36.0-66.0 Neutrophils % TONEY ( [facility]) lymph % 36.0 % 24.0-44.0 Lymph % TONEY ([facility]) mono % 6.8 % 2.0-8.0 [place] % [place] ([facility]) baso % 0.9 % 0.0-1.0 Baso % [place] ([facility]) eos % 2.8 % 0.0-3.0 Eos % [place] ([facility]) immature granulocyte % 0.9 % 0-3.0 Immature Gran ulocyte % TONEY ([facility]) nucleated red blood cell % 0.0 % 0-0 Nucleated Red Blood Cell % TONEY ([facility]) neutrophils # 2.4 10 1.5-8.5 Neutrophils # TONEY ( [facility]) lymph # 1.7 10 1.5-5.0 Lymph # TONEY ([facility]) mono # 0.3 10 0.0-0.8 [place] # TONEY ([facility]) eos # 0.1 10 0.0-0.5 Eos # TONEY ([facility]) baso # 0.0 10 0.0-0.2 Baso # TONEY ([facility]) ID Date Data Source [id number] 06/30/2020 11:11:00 AM EDT TONEY ([facility]) Name Value Range Interpretation Code Description Data Marian rce(s) Supporting Document(s) Hemoglobin A1c/Hemoglobin.total in Blood 11.2 % Hemoglobin a1C TONEY ([facility]) estimated average glucose 275 mg/dL 60-110 Above high norm al Estimated Average Glucose [place] ([facility]) ID Date Data Source [id number] 06/30/2020 11:11:00 AM EDT [place] ([facility]) Name Value Range Interpretation Code Description Data Marian rce(s) Supporting Document(s) Hemoglobin A1c/Hemoglobin.total in Blood 11.2 % Hemoglobin a1C [place]ONE[place] ([facility]) estimated average glucose 275 mg/dL 60-110 Above high norm al Estimated Average Glucose [place] ([facility]) ID Date Data Source [id number] 06/30/2020 11:11:00 AM EDT [facility]) Name Value Range Interpretation Code Description Data Marian rce(s) Supporting Document(s) cholesterol level 165 mg/dL <200 Cholesterol Level TONEY ([facility]) triglycerides level 563 mg/dL <150 Above high normal Triglycer ides Level TONEY ([facility]) non-HDL-C 139 mg/dL Non-hdl-c TONEY ([facility]) cholesterol risk ratio <5 Above high normal Choles terol Risk Ratio TONEY ([facility]) HDL cholesterol 26 mg/dL >40 Below low normal HDL Cholestero l [facility]ONEY ([facility]) ID Date Data Source [id number] 06/30/2020 11:11:00 AM EDT [facility]) Name Value Range Interpretation Code Description Data Marian rce(s) Supporting Document(s) glucose, fasting 341 mg/dL 70-100 Above high normal Glucose, Fas ting TONEY ([facility]) blood urea nitrogen 10 mg/dL 7-18 Blood Urea Nitro gen [facility]ONE[place] ([facility]) glomerular filtration rate > 60.0 >58 Glomerula r Filtration Rate TONEY ([facility]) creatinine for GFR 0.58 mg/dL 0.55-1.30 Creatinine for GF R TONEY ([facility]) chloride level 100 mEq/L 98-107 Chloride Level [facility] ([facility]) sodium level 133 mEq/L 136-145 Below low normal Sodium Level ATHE NA ([facility]) potassium serum 4.1 mEq/L 3.5-5.1 Potassium Serum ATHE NA ([facility]) anion gap 7 mEq/L 8-16 Below low normal Anion Gap TONEY ( [facility]) calcium level 8.7 mg/dL 8.5-10.1 Calcium Level TONEY ( [facility]) carbon dioxide level 26 mEq/L 21-32 Carbon Dioxide Level [facility] ([facility]) ALT/SGPT 52 U/L 12-78 ALT/SGPT [facility] ([facility]) AST/SGOT 33 U/L 7-37 AST/SGOT [place] ([facility]) total protein 6.5 gm/dL 6.4-8.2 Total Protein TONEY ( [facility]) alkaline phosphatase 89 U/L 45-117 Alkaline Phosph atase TONE[place] ([facility]) albumin 3.5 gm/dL 3.2-5.2 Albumin TONE[place] ([facility]) bilirubin,total 0.4 mg/dL 0.2-1.0 Bilirubin,total ATHE ([facility]) albumin/globulin ratio 1.2-2.2 Albumin/globu claudia Ratio [place] ([facility]) ID Date Data Source [id number] 06/30/2020 11:11:00 AM EDT [place] ([facility]) Name Value Range Interpretation Code Description Data Marian rce(s) Supporting Document(s) white blood count 4.6 10 4.0-10.0 White Blood Count TONEY ([facility]) red blood count 5.09 10 4.00-5.40 Red Blood Count ATHE NA ([facility]) hemoglobin 12.9 g/dL 12.0-15.5 Hemoglobin TONEY ([facility]) hematocrit 40.4 % 36.0-47.0 Hematocrit TONEY ([facility]) mean corpuscular volume 79.4 fL 80.0-96.0 Below low normal Mean Corpuscular Volume TONEY ([facility]) mean corpuscular hemoglobin 25.3 pg 27.0-33.0 Below low nor mal Mean Corpuscular Hemoglobin TONEY ([facility]) mean corpuscular HGB conc 31.9 g/dL 32.0-36.5 Below low sudhir l Mean Corpuscular HGB Conc TONEY ([facility]) neutrophils % 52.6 % 36.0-66.0 Neutrophils % [place] ( [facility]) platelet count, automated 146 10 150-450 Below low sudhir l Platelet Count, Automated [place] ([facility]) red cell distribution width 14.3 % 11.5-14.5 Red Cell Distribution Width [place] ([facility]) lymph % 36.0 % 24.0-44.0 Lymph % [facility] ([facility]) mono % 6.8 % 2.0-8.0 [place] % TONEY ([facility]) eos % 2.8 % 0.0-3.0 Eos % [place] ([facility]) baso % 0.9 % 0.0-1.0 Baso % [place] ([facility]) immature granulocyte % 0.9 % 0-3.0 Immature Gran ulocyte % [facility] ([facility]) neutrophils # 2.4 10 1.5-8.5 Neutrophils # [place] ( [facility]) nucleated red blood cell % 0.0 % 0-0 Nucleated Red Blood Cell % [facility] ([facility]) mono # 0.3 10 0.0-0.8 [place] # TONEY ([facility]) lymph # 1.7 10 1.5-5.0 Lymph # [facility] ([facility]) eos # 0.1 10 0.0-0.5 Eos # [facility] ([facility]) baso # 0.0 10 0.0-0.2 Baso # [facility] ([facility]) ID Date Data Source [id number] 06/30/2020 11:11:00 AM EDT [place] ([facility]) Name Value Range Interpretation Code Description Data Marian rce(s) Supporting Document(s) triglycerides level 563 mg/dL <150 Above high normal Triglycer ides Level [facility]ONE[place] ([facility]) cholesterol level 165 mg/dL <200 Cholesterol Level [place] ([facility]) non-HDL-C 139 mg/dL Non-hdl-c [facility]ONE[facility] ([facility]) cholesterol risk ratio <5 Above high normal Choles terol Risk Ratio TONEY ([facility]) HDL cholesterol 26 mg/dL >40 Below low normal HDL Cholestero l [place] ([facility]) ID Date Data Source [id number] 06/30/2020 11:11:00 AM EDT [place] ([facility]) Name Value Range Interpretation Code Description Data Marian rce(s) Supporting Document(s) glucose, fasting 341 mg/dL 70-100 Above high normal Glucose, Fas ting TONEY ([facility]) blood urea nitrogen 10 mg/dL 7-18 Blood Urea Nitro gen TONEY ([facility]) glomerular filtration rate > 60.0 >58 Glomerula r Filtration Rate [facility] ([facility]) creatinine for GFR 0.58 mg/dL 0.55-1.30 Creatinine for GF R TONEY ([facility]) potassium serum 4.1 mEq/L 3.5-5.1 Potassium Serum ATH NA ([facility]) chloride level 100 mEq/L 98-107 Chloride Level [facility] ([facility]) sodium level 133 mEq/L 136-145 Below low normal Sodium Level ATHE NA ([facility]) carbon dioxide level 26 mEq/L 21-32 Carbon Dioxide Level [facility] ([facility]) calcium level 8.7 mg/dL 8.5-10.1 Calcium Level TONEY ( [facility]) AST/SGOT 33 U/L 7-37 AST/SGOT [facility] ([facility]) anion gap 7 mEq/L 8-16 Below low normal Anion Gap TONEY ( [facility]) alkaline phosphatase 89 U/L 45-117 Alkaline Phosph atase [facility]ONE[place] ([facility]) bilirubin,total 0.4 mg/dL 0.2-1.0 Bilirubin,total ATHE NA ([facility]) ALT/SGPT 52 U/L 12-78 ALT/SGPT [facility] ([facility]) total protein 6.5 gm/dL 6.4-8.2 Total Protein TONEY ( [facility]) albumin 3.5 gm/dL 3.2-5.2 Albumin TONEY ([facility]) albumin/globulin ratio 1.2-2.2 Albumin/globu claudia Ratio [facility]ONEY ([facility]) ID Date Data Source [id number] 06/30/2020 11:11:00 AM EDT [place] ([facility]) Name Value Range Interpretation Code Description Data Marian rce(s) Supporting Document(s) white blood count 4.6 10 4.0-10.0 White Blood Count [facility]ONE[place] ([facility]) hemoglobin 12.9 g/dL 12.0-15.5 Hemoglobin [facility] ([facility]) red blood count 5.09 10 4.00-5.40 Red Blood Count ATHE NA ([facility]) mean corpuscular hemoglobin 25.3 pg 27.0-33.0 Below low nor mal Mean Corpuscular Hemoglobin TONEY ([facility]) hematocrit 40.4 % 36.0-47.0 Hematocrit [facility] ([facility]) mean corpuscular volume 79.4 fL 80.0-96.0 Below low normal Mean Corpuscular Volume TONEY ([facility]) neutrophils % 52.6 % 36.0-66.0 Neutrophils % [place] ( [facility]) mean corpuscular HGB conc 31.9 g/dL 32.0-36.5 Below low sudhir l Mean Corpuscular HGB Conc TONEY ([facility]) red cell distribution width 14.3 % 11.5-14.5 Red Cell Distribution Width [facility] ([facility]) platelet count, automated 146 10 150-450 Below low sudhir l Platelet Count, Automated [place] ([facility]) lymph % 36.0 % 24.0-44.0 Lymph % [facility] ([facility]) mono % 6.8 % 2.0-8.0 [place] % TONEY ([facility]) baso % 0.9 % 0.0-1.0 Baso % [place] ([facility]) eos % 2.8 % 0.0-3.0 Eos % [place] ([facility]) immature granulocyte % 0.9 % 0-3.0 Immature Gran ulocyte % TONE[place] ([facility]) neutrophils # 2.4 10 1.5-8.5 Neutrophils # [place] ( [facility]) nucleated red blood cell % 0.0 % 0-0 Nucleated Red Blood Cell % [facility] ([facility]) eos # 0.1 10 0.0-0.5 Eos # [facility] ([facility]) mono # 0.3 10 0.0-0.8 [place] # TONEY ([facility]) lymph # 1.7 10 1.5-5.0 Lymph # TONEY ([facility]) baso # 0.0 10 0.0-0.2 Baso # [facility] ([facility]) ID Date Data Source [id number] 06/30/2020 11:11:00 AM EDT [place] ([facility]) Name Value Range Interpretation Code Description Data Marian rce(s) Supporting Document(s) estimated average glucose 275 mg/dL 60-110 Above high norm al Estimated Average Glucose [place] ([facility]) Hemoglobin A1c/Hemoglobin.total in Blood 11.2 % Hemoglobin a1C [place] ([facility]) ID Date Data Source [id number] 06/30/2020 11:11:00 AM EDT [place] ([facility]) Name Value Range Interpretation Code Description Data Marian rce(s) Supporting Document(s) HDL cholesterol 26 mg/dL >40 Below low normal HDL Cholestero l [facility]ONE[place] ([facility]) triglycerides level 563 mg/dL <150 Above high normal Triglycer ides Level TONEY ([facility]) cholesterol level 165 mg/dL <200 Cholesterol Level [facility] ([facility]) non-HDL-C 139 mg/dL Non-hdl-c [facility]ONE[facility] ([facility]) cholesterol risk ratio <5 Above high normal Choles terol Risk Ratio TONEY ([facility]) ID Date Data Source [id number] 06/30/2020 11:11:00 AM EDT [place] ([facility]) Name Value Range Interpretation Code Description Data Marian rce(s) Supporting Document(s) blood urea nitrogen 10 mg/dL 7-18 Blood Urea Nitro gen [facility]ONE[place] ([facility]) glucose, fasting 341 mg/dL 70-100 Above high normal Glucose, Fas ting [facility]ONE[place] ([facility]) potassium serum 4.1 mEq/L 3.5-5.1 Potassium Serum ATHE ([facility]) chloride level 100 mEq/L 98-107 Chloride Level [facility] ([facility]) creatinine for GFR 0.58 mg/dL 0.55-1.30 Creatinine for GF R [place]ONE[place] ([facility]) sodium level 133 mEq/L 136-145 Below low normal Sodium Level ATHE NA ([facility]) glomerular filtration rate > 60.0 >58 Glomerula r Filtration Rate [place] ([facility]) calcium level 8.7 mg/dL 8.5-10.1 Calcium Level [place] ( [facility]) anion gap 7 mEq/L 8-16 Below low normal Anion Gap TONEY ( [facility]) carbon dioxide level 26 mEq/L 21-32 Carbon Dioxide Level [facility] ([facility]) AST/SGOT 33 U/L 7-37 AST/SGOT [place] ([facility]) alkaline phosphatase 89 U/L 45-117 Alkaline Phosph atase [facility] ([facility]) total protein 6.5 gm/dL 6.4-8.2 Total Protein TONE[place] ( [facility]) ALT/SGPT 52 U/L 12-78 ALT/SGPT [facility] ([facility]) bilirubin,total 0.4 mg/dL 0.2-1.0 Bilirubin,total ATHE NA ([facility]) albumin/globulin ratio 1.2-2.2 Albumin/globu claudia Ratio [facility] ([facility]) albumin 3.5 gm/dL 3.2-5.2 Albumin [facility] ([facility]) ID Date Data Source [id number] 06/30/2020 11:11:00 AM EDT [place] ([facility]) Name Value Range Interpretation Code Description Data Marian rce(s) Supporting Document(s) white blood count 4.6 10 4.0-10.0 White Blood Count [place] ([facility]) hemoglobin 12.9 g/dL 12.0-15.5 Hemoglobin TONE[place] ([facility]) hematocrit 40.4 % 36.0-47.0 Hematocrit [facility] ([facility]) red blood count 5.09 10 4.00-5.40 Red Blood Count ATHE NA ([facility]) red cell distribution width 14.3 % 11.5-14.5 Red Cell Distribution Width [place] ([facility]) mean corpuscular HGB conc 31.9 g/dL 32.0-36.5 Below low sudhir l Mean Corpuscular HGB Conc [facility] ([facility]) mean corpuscular volume 79.4 fL 80.0-96.0 Below low normal Mean Corpuscular Volume [facility]ONE[place] ([facility]) mean corpuscular hemoglobin 25.3 pg 27.0-33.0 Below low nor mal Mean Corpuscular Hemoglobin [facility]ONE[place] ([facility]) lymph % 36.0 % 24.0-44.0 Lymph % [facility] ([facility]) mono % 6.8 % 2.0-8.0 [place] % TONEY ([facility]) neutrophils % 52.6 % 36.0-66.0 Neutrophils % [facility] ( [facility]) platelet count, automated 146 10 150-450 Below low sudhir l Platelet Count, Automated [place] ([facility]) immature granulocyte % 0.9 % 0-3.0 Immature Gran ulocyte % [facility] ([facility]) eos % 2.8 % 0.0-3.0 Eos % [facility] ([facility]) nucleated red blood cell % 0.0 % 0-0 Nucleated Red Blood Cell % [facility] ([facility]) baso % 0.9 % 0.0-1.0 Baso % [facility] ([facility]) lymph # 1.7 10 1.5-5.0 Lymph # [facility] ([facility]) mono # 0.3 10 0.0-0.8 [place] # TONEY ([facility]) neutrophils # 2.4 10 1.5-8.5 Neutrophils # [place] ( [facility]) eos # 0.1 10 0.0-0.5 Eos # [place] ([facility]) baso # 0.0 10 0.0-0.2 Baso # [facility] ([facility]) ID Date Data Source [id number] 06/30/2020 11:11:00 AM EDT [place] ([facility]) Name Value Range Interpretation Code Description Data Marian rce(s) Supporting Document(s) Hemoglobin A1c/Hemoglobin.total in Blood 11.2 % Hemoglobin a1C [place] ([facility]) estimated average glucose 275 mg/dL 60-110 Above high norm al Estimated Average Glucose [place] ([facility]) ID Date Data Source [id number] 06/30/2020 11:11:00 AM EDT [place] ([facility]) Name Value Range Interpretation Code Description Data Marian rce(s) Supporting Document(s) triglycerides level 563 mg/dL <150 Above high normal Triglycer ides Level [facility] ([facility]) cholesterol level 165 mg/dL <200 Cholesterol Level [facility] ([facility]) cholesterol risk ratio <5 Above high normal Choles terol Risk Ratio [facility] ([facility]) HDL cholesterol 26 mg/dL >40 Below low normal HDL Cholestero l [facility] ([facility]) non-HDL-C 139 mg/dL Non-hdl-c [facility] ([facility]) ID Date Data Source [id number] 06/30/2020 11:11:00 AM EDT [place] ([facility]) Name Value Range Interpretation Code Description Data Marian rce(s) Supporting Document(s) blood urea nitrogen 10 mg/dL 7-18 Blood Urea Nitro gen [facility] ([facility]) creatinine for GFR 0.58 mg/dL 0.55-1.30 Creatinine for GF R [place] ([facility]) glomerular filtration rate > 60.0 >58 Glomerula r Filtration Rate [facility] ([facility]) glucose, fasting 341 mg/dL 70-100 Above high normal Glucose, Fas ting [facility] ([facility]) sodium level 133 mEq/L 136-145 Below low normal Sodium Level ATHE ([facility]) chloride level 100 mEq/L 98-107 Chloride Level [place] ([facility]) potassium serum 4.1 mEq/L 3.5-5.1 Potassium Serum ATHE ([facility]) anion gap 7 mEq/L 8-16 Below low normal Anion Gap TONE[place] ( [facility]) calcium level 8.7 mg/dL 8.5-10.1 Calcium Level [place] ( [facility]) carbon dioxide level 26 mEq/L 21-32 Carbon Dioxide Level [place] ([facility]) bilirubin,total 0.4 mg/dL 0.2-1.0 Bilirubin,total ATHE ([facility]) AST/SGOT 33 U/L 7-37 AST/SGOT [facility] ([facility]) ALT/SGPT 52 U/L 12-78 ALT/SGPT [facility] ([facility]) alkaline phosphatase 89 U/L 45-117 Alkaline Phosph atase [facility] ([facility]) albumin 3.5 gm/dL 3.2-5.2 Albumin [facility] ([facility]) total protein 6.5 gm/dL 6.4-8.2 Total Protein [facility] ( [facility]) albumin/globulin ratio 1.2-2.2 Albumin/globu claduia Ratio [facility]Y ([facility]) ID Date Data Source [id number] 06/30/2020 11:11:00 AM EDT [place] ([facility]) Name Value Range Interpretation Code Description Data Marian rce(s) Supporting Document(s) white blood count 4.6 10 4.0-10.0 White Blood Count [facility] ([facility]) hematocrit 40.4 % 36.0-47.0 Hematocrit [facility] ([facility]) mean corpuscular volume 79.4 fL 80.0-96.0 Below low normal Mean Corpuscular Volume [facility]ONE[place] ([facility]) red blood count 5.09 10 4.00-5.40 Red Blood Count ATHE ([facility]) hemoglobin 12.9 g/dL 12.0-15.5 Hemoglobin [facility] ([facility]) mean corpuscular hemoglobin 25.3 pg 27.0-33.0 Below low nor mal Mean Corpuscular Hemoglobin [facility] ([facility]) mean corpuscular HGB conc 31.9 g/dL 32.0-36.5 Below low sudhir l Mean Corpuscular HGB Conc [facility] ([facility]) red cell distribution width 14.3 % 11.5-14.5 Red Cell Distribution Width [place] ([facility]) neutrophils % 52.6 % 36.0-66.0 Neutrophils % [place] ( [facility]) lymph % 36.0 % 24.0-44.0 Lymph % [facility] ([facility]) platelet count, automated 146 10 150-450 Below low sudhir l Platelet Count, Automated [place] ([facility]) immature granulocyte % 0.9 % 0-3.0 Immature Gran ulocyte % [facility] ([facility]) mono % 6.8 % 2.0-8.0 [place] % TONEY ([facility]) baso % 0.9 % 0.0-1.0 Baso % [facility] ([facility]) eos % 2.8 % 0.0-3.0 Eos % [facility] ([facility]) lymph # 1.7 10 1.5-5.0 Lymph # [facility] ([facility]) nucleated red blood cell % 0.0 % 0-0 Nucleated Red Blood Cell % [facility] ([facility]) neutrophils # 2.4 10 1.5-8.5 Neutrophils # [facility] ( [facility]) mono # 0.3 10 0.0-0.8 [place] # TONEY ([facility]) eos # 0.1 10 0.0-0.5 Eos # [facility] ([facility]) baso # 0.0 10 0.0-0.2 Baso # [facility] ([facility]) ID Date Data Source [id number] 06/30/2020 11:11:00 AM EDT [place] ([facility]) Name Value Range Interpretation Code Description Data Marian rce(s) Supporting Document(s) Hemoglobin A1c/Hemoglobin.total in Blood 11.2 % Hemoglobin a1C [facility] ([facility]) estimated average glucose 275 mg/dL 60-110 Above high norm al Estimated Average Glucose [facility] ([facility]) ID Date Data Source [id number] 06/30/2020 11:11:00 AM EDT [place] ([facility]) Name Value Range Interpretation Code Description Data Marian rce(s) Supporting Document(s) cholesterol level 165 mg/dL <200 Cholesterol Level [facility] ([facility]) HDL cholesterol 26 mg/dL >40 Below low normal HDL Cholestero l [facility] ([facility]) triglycerides level 563 mg/dL <150 Above high normal Triglycer ides Level [facility] ([facility]) cholesterol risk ratio <5 Above high normal Choles terol Risk Ratio [facility] ([facility]) non-HDL-C 139 mg/dL Non-hdl-c [facility] ([facility]) ID Date Data Source [id number] 06/30/2020 11:11:00 AM EDT [place] ([facility]) Name Value Range Interpretation Code Description Data Marian rce(s) Supporting Document(s) glucose, fasting 341 mg/dL 70-100 Above high normal Glucose, Fas ting [facility] ([facility]) blood urea nitrogen 10 mg/dL 7-18 Blood Urea Nitro gen [facility] ([facility]) glomerular filtration rate > 60.0 >58 Glomerula r Filtration Rate [facility] ([facility]) creatinine for GFR 0.58 mg/dL 0.55-1.30 Creatinine for GF R [facility]ONEY ([facility]) chloride level 100 mEq/L 98-107 Chloride Level [place] ([facility]) potassium serum 4.1 mEq/L 3.5-5.1 Potassium Serum ATHE NA ([facility]) sodium level 133 mEq/L 136-145 Below low normal Sodium Level [place] ([facility]) calcium level 8.7 mg/dL 8.5-10.1 Calcium Level [place] ( [facility]) AST/SGOT 33 U/L 7-37 AST/SGOT [place] ([facility]) carbon dioxide level 26 mEq/L 21-32 Carbon Dioxide Level [place] ([facility]) anion gap 7 mEq/L 8-16 Below low normal Anion Gap [place] ( [facility]) alkaline phosphatase 89 U/L 45-117 Alkaline Phosph atase [place] ([facility]) bilirubin,total 0.4 mg/dL 0.2-1.0 Bilirubin,total ATHE ([facility]) total protein 6.5 gm/dL 6.4-8.2 Total Protein [place] ( [facility]) ALT/SGPT 52 U/L 12-78 ALT/SGPT [place] ([facility]) albumin/globulin ratio 1.2-2.2 Albumin/globu claudia Ratio [place] ([facility]) albumin 3.5 gm/dL 3.2-5.2 Albumin [facility] ([facility]) ID Date Data Source [id number] 06/30/2020 11:11:00 AM EDT [place] ([facility]) Name Value Range Interpretation Code Description Data Marian rce(s) Supporting Document(s) white blood count 4.6 10 4.0-10.0 White Blood Count [place] ([facility]) red blood count 5.09 10 4.00-5.40 Red Blood Count ATHE NA ([facility]) hematocrit 40.4 % 36.0-47.0 Hematocrit [place] ([facility]) hemoglobin 12.9 g/dL 12.0-15.5 Hemoglobin [place] ([facility]) mean corpuscular volume 79.4 fL 80.0-96.0 Below low normal Mean Corpuscular Volume [place] ([facility]) red cell distribution width 14.3 % 11.5-14.5 Red Cell Distribution Width [place] ([facility]) platelet count, automated 146 10 150-450 Below low sudhir l Platelet Count, Automated [place] ([facility]) mean corpuscular hemoglobin 25.3 pg 27.0-33.0 Below low nor mal Mean Corpuscular Hemoglobin [place] ([facility]) mean corpuscular HGB conc 31.9 g/dL 32.0-36.5 Below low sudhir l Mean Corpuscular HGB Conc [facility] ([facility]) mono % 6.8 % 2.0-8.0 [place] % [facility] ([facility]) neutrophils % 52.6 % 36.0-66.0 Neutrophils % [place] ( [facility]) lymph % 36.0 % 24.0-44.0 Lymph % [place] ([facility]) eos % 2.8 % 0.0-3.0 Eos % [place] ([facility]) immature granulocyte % 0.9 % 0-3.0 Immature Gran ulocyte % [place] ([facility]) baso % 0.9 % 0.0-1.0 Baso % [place] ([facility]) neutrophils # 2.4 10 1.5-8.5 Neutrophils # [place] ( [facility]) nucleated red blood cell % 0.0 % 0-0 Nucleated Red Blood Cell % [place] ([facility]) lymph # 1.7 10 1.5-5.0 Lymph # [place] ([facility]) mono # 0.3 10 0.0-0.8 [place] # [facility] ([facility]) eos # 0.1 10 0.0-0.5 Eos # [place] ([facility]) baso # 0.0 10 0.0-0.2 Baso # [place] ([facility]) ID Date Data Source [id number] 06/30/2020 11:11:00 AM EDT [place] ([facility]) Name Value Range Interpretation Code Description Data Marian rce(s) Supporting Document(s) Hemoglobin A1c/Hemoglobin.total in Blood 11.2 % Hemoglobin a1C [place] ([facility]) estimated average glucose 275 mg/dL 60-110 Above high norm al Estimated Average Glucose [place] ([facility]) ID Date Data Source [id number] 06/30/2020 11:11:00 AM EDT [facility]) Name Value Range Interpretation Code Description Data Marian rce(s) Supporting Document(s) triglycerides level 563 mg/dL <150 Above high normal Triglycer ides Level [place] ([facility]) cholesterol level 165 mg/dL <200 Cholesterol Level [place] ([facility]) HDL cholesterol 26 mg/dL >40 Below low normal HDL Cholestero l [place] ([facility]) non-HDL-C 139 mg/dL Non-hdl-c [place] ([facility]) cholesterol risk ratio <5 Above high normal Choles terol Risk Ratio [facility] ([facility]) ID Date Data Source [id number] 06/30/2020 11[facility]11[facility] Name Value Range Interpretation Code Description Data Marian rce(s) Supporting Document(s) glucose, fasting 341 mg/dL 70-100 Above high normal Glucose, Fas ting [place] ([facility]) blood urea nitrogen 10 mg/dL 7-18 Blood Urea Nitro gen [place] ([facility]) creatinine for GFR 0.58 mg/dL 0.55-1.30 Creatinine for GF R [place] ([facility]) sodium level 133 mEq/L 136-145 Below low normal Sodium Level [place] NA ([facility]) potassium serum 4.1 mEq/L 3.5-5.1 Potassium Serum ATHE NA ([facility]) glomerular filtration rate > 60.0 >58 Glomerula r Filtration Rate [place] ([facility]) anion gap 7 mEq/L 8-16 Below low normal Anion Gap [place] ( [facility]) chloride level 100 mEq/L 98-107 Chloride Level [place] ([facility]) carbon dioxide level 26 mEq/L 21-32 Carbon Dioxide Level [place] ([facility]) calcium level 8.7 mg/dL 8.5-10.1 Calcium Level [place] ( [facility]) ALT/SGPT 52 U/L 12-78 ALT/SGPT [place] ([facility]) AST/SGOT 33 U/L 7-37 AST/SGOT [place] ([facility]) bilirubin,total 0.4 mg/dL 0.2-1.0 Bilirubin,total AT[place] ([facility]) alkaline phosphatase 89 U/L 45-117 Alkaline Phosph atase [place] ([facility]) albumin 3.5 gm/dL 3.2-5.2 Albumin [place] ([facility]) total protein 6.5 gm/dL 6.4-8.2 Total Protein [place] ( [facility]) albumin/globulin ratio 1.2-2.2 Albumin/globu claudia Ratio [place] ([facility]) ID Date Data Source [id number] 06/30/2020 11:11:00 AM EDT [place] ([facility]) Name Value Range Interpretation Code Description Data Marian rce(s) Supporting Document(s) white blood count 4.6 10 4.0-10.0 White Blood Count [place] ([facility]) red blood count 5.09 10 4.00-5.40 Red Blood Count AT[place] NA ([facility]) hematocrit 40.4 % 36.0-47.0 Hematocrit [place] ([facility]) hemoglobin 12.9 g/dL 12.0-15.5 Hemoglobin [place] ([facility]) mean corpuscular volume 79.4 fL 80.0-96.0 Below low normal Mean Corpuscular Volume [place] ([facility]) mean corpuscular hemoglobin 25.3 pg 27.0-33.0 Below low nor mal Mean Corpuscular Hemoglobin [facility] ([facility]) mean corpuscular HGB conc 31.9 g/dL 32.0-36.5 Below low sudhir l Mean Corpuscular HGB Conc [place] ([facility]) platelet count, automated 146 10 150-450 Below low [place]dh[place] Platelet Count, Automated [place] ([facility]) red cell distribution width 14.3 % 11.5-14.5 Red Cell Distribution Width [place] ([facility]) neutrophils % 52.6 % 36.0-66.0 Neutrophils % [place] ( [facility]) baso % 0.9 % 0.0-1.0 Baso % [place] ([facility]) lymph % 36.0 % 24.0-44.0 Lymph % [place] ([facility]) mono % 6.8 % 2.0-8.0 [place] % [facility] ([facility]) eos % 2.8 % 0.0-3.0 Eos % [place] ([facility]) neutrophils # 2.4 10 1.5-8.5 Neutrophils # [place] ( [facility]) nucleated red blood cell % 0.0 % 0-0 Nucleated Red Blood Cell % [place] ([facility]) immature granulocyte % 0.9 % 0-3.0 Immature Gran ulocyte % [place] ([facility]) lymph # 1.7 10 1.5-5.0 Lymph # [place] ([facility]) eos # 0.1 10 0.0-0.5 Eos # [facility] ([facility]) mono # 0.3 10 0.0-0.8 [place] # [facility] ([facility]) baso # 0.0 10 0.0-0.2 Baso # [place] ([facility]) ID Date Data Source [id number] 06/30/2020 11:11:00 AM EDT [place] ([facility]) Name Value Range Interpretation Code Description Data Marian rce(s) Supporting Document(s) Hemoglobin A1c/Hemoglobin.total in Blood 11.2 % Hemoglobin a1C [place] ([facility]) estimated average glucose 275 mg/dL 60-110 Above high norm al Estimated Average Glucose [place] ([facility]) ID Date Data Source [id number] 06/30/2020 11:11:00 AM EDT [place] ([facility]) Name Value Range Interpretation Code Description Data Marian rce(s) Supporting Document(s) triglycerides level 563 mg/dL <150 Above high normal Triglycer ides Level [place] ([facility]) HDL cholesterol 26 mg/dL >40 Below low normal HDL Cholestero l [place] ([facility]) cholesterol level 165 mg/dL <200 Cholesterol Level [place] ([facility]) cholesterol risk ratio <5 Above high normal Choles terol Risk Ratio [place] ([facility]) non-HDL-C 139 mg/dL Non-hdl-c [place] ([facility]) ID Date Data Source [id number] 06/30/2020 11:11:00 AM EDT [place] ([facility]) Name Value Range Interpretation Code Description Data Marian rce(s) Supporting Document(s) creatinine for GFR 0.58 mg/dL 0.55-1.30 Creatinine for GF R [place] ([facility]) glucose, fasting 341 mg/dL 70-100 Above high normal Glucose, Fas ting [place] ([facility]) glomerular filtration rate > 60.0 >58 Glomerula r Filtration Rate [place] ([facility]) blood urea nitrogen 10 mg/dL 7-18 Blood Urea Nitro gen [place] ([facility]) carbon dioxide level 26 mEq/L 21-32 Carbon Dioxide Level [place] ([facility]) potassium serum 4.1 mEq/L 3.5-5.1 Potassium Serum ATHE NA ([facility]) sodium level 133 mEq/L 136-145 Below low normal Sodium Level [place] NA ([facility]) chloride level 100 mEq/L 98-107 Chloride Level [place] ([facility]) AST/SGOT 33 U/L 7-37 AST/SGOT [place] ([facility]) anion gap 7 mEq/L 8-16 Below low normal Anion Gap [place] ( [facility]) calcium level 8.7 mg/dL 8.5-10.1 Calcium Level [place] ( [facility]) bilirubin,total 0.4 mg/dL 0.2-1.0 Bilirubin,total [place] ([facility]) total protein 6.5 gm/dL 6.4-8.2 Total Protein [place] ( [facility]) alkaline phosphatase 89 U/L 45-117 Alkaline Phosph atase [place] ([facility]) ALT/SGPT 52 U/L 12-78 ALT/SGPT [place] ([facility]) albumin/globulin ratio 1.2-2.2 Albumin/globu claudia Ratio [place] ([facility]) albumin 3.5 gm/dL 3.2-5.2 Albumin [place] ([facility]) ID Date Data Source [id number] 06/30/2020 11:11:00 AM EDT [place] ([facility]) Name Value Range Interpretation Code Description Data Marian rce(s) Supporting Document(s) white blood count 4.6 10 4.0-10.0 White Blood Count [place] ([facility]) red blood count 5.09 10 4.00-5.40 Red Blood Count [place] ([facility]) hemoglobin 12.9 g/dL 12.0-15.5 Hemoglobin [place] ([facility]) hematocrit 40.4 % 36.0-47.0 Hematocrit [place] ([facility]) mean corpuscular volume 79.4 fL 80.0-96.0 Below low normal Mean Corpuscular Volume [place] ([facility]) mean corpuscular HGB conc 31.9 g/dL 32.0-36.5 Below low sudhir l Mean Corpuscular HGB Conc [facility] ([facility]) red cell distribution width 14.3 % 11.5-14.5 Red Cell Distribution Width [place] ([facility]) mean corpuscular hemoglobin 25.3 pg 27.0-33.0 Below low nor mal Mean Corpuscular Hemoglobin [place] ([facility]) neutrophils % 52.6 % 36.0-66.0 Neutrophils % [place] ( [facility]) platelet count, automated 146 10 150-450 Below low sudhir l Platelet Count, Automated [place] ([facility]) lymph % 36.0 % 24.0-44.0 Lymph % [place] ([facility]) mono % 6.8 % 2.0-8.0 [place] % [facility] ([facility]) eos % 2.8 % 0.0-3.0 Eos % [place] ([facility]) baso % 0.9 % 0.0-1.0 Baso % [place] ([facility]) immature granulocyte % 0.9 % 0-3.0 Immature Gran ulocyte % [place] ([facility]) nucleated red blood cell % 0.0 % 0-0 Nucleated Red Blood Cell % [place] ([facility]) neutrophils # 2.4 10 1.5-8.5 Neutrophils # [place] ( [facility]) lymph # 1.7 10 1.5-5.0 Lymph # [place] ([facility]) eos # 0.1 10 0.0-0.5 Eos # [place] ([facility]) mono # 0.3 10 0.0-0.8 [place] # [facility] ([facility]) baso # 0.0 10 0.0-0.2 Baso # [place] ([facility]) ID Date Data Source [id number] 06/30/2020 11:11:00 AM EDT [place] ([facility]) Name Value Range Interpretation Code Description Data Marian rce(s) Supporting Document(s) estimated average glucose 275 mg/dL 60-110 Above high norm al Estimated Average Glucose [place] ([facility]) Hemoglobin A1c/Hemoglobin.total in Blood 11.2 % Hemoglobin a1C [place] ([facility]) ID Date Data Source [id number] 06/30/2020 11:11:00 AM EDT [place] ([facility]) Name Value Range Interpretation Code Description Data Marian rce(s) Supporting Document(s) triglycerides level 563 mg/dL <150 Above high normal Triglycer ides Level [place] ([facility]) cholesterol level 165 mg/dL <200 Cholesterol Level [place] ([facility]) HDL cholesterol 26 mg/dL >40 Below low normal HDL Cholestero l [place] ([facility]) non-HDL-C 139 mg/dL Non-hdl-c [place] ([facility]) cholesterol risk ratio <5 Above high normal Choles terol Risk Ratio [place] ([facility]) ID Date Data Source [id number] 06/30/2020 11:11:00 AM EDT [facility]) Name Value Range Interpretation Code Description Data Marian rce(s) Supporting Document(s) glucose, fasting 341 mg/dL 70-100 Above high normal Glucose, Fas ting [place] ([facility]) blood urea nitrogen 10 mg/dL 7-18 Blood Urea Nitro gen [place] ([facility]) creatinine for GFR 0.58 mg/dL 0.55-1.30 Creatinine for GF R [place] ([facility]) potassium serum 4.1 mEq/L 3.5-5.1 Potassium Serum [place] NA ([facility]) sodium level 133 mEq/L 136-145 Below low normal Sodium Level [place] NA ([facility]) glomerular filtration rate > 60.0 >58 Glomerula r Filtration Rate [place] ([facility]) anion gap 7 mEq/L 8-16 Below low normal Anion Gap [facility] ( [facility]) chloride level 100 mEq/L 98-107 Chloride Level [place] ([facility]) calcium level 8.7 mg/dL 8.5-10.1 Calcium Level [place] ( [facility]) carbon dioxide level 26 mEq/L 21-32 Carbon Dioxide Level [place] ([facility]) bilirubin,total 0.4 mg/dL 0.2-1.0 Bilirubin,total ATHE NA ([facility]) alkaline phosphatase 89 U/L 45-117 Alkaline Phosph atase [place] ([facility]) ALT/SGPT 52 U/L 12-78 ALT/SGPT [facility] ([facility]) AST/SGOT 33 U/L 7-37 AST/SGOT [place] ([facility]) albumin 3.5 gm/dL 3.2-5.2 Albumin [place] ([facility]) total protein 6.5 gm/dL 6.4-8.2 Total Protein [place] ( [facility]) albumin/globulin ratio 1.2-2.2 Albumin/globu claudia Ratio [facility] ([facility]) ID Date Data Source [id number] 06/30/2020 11:11:00 AM EDT [place] ([facility]) Name Value Range Interpretation Code Description Data Marian rce(s) Supporting Document(s) white blood count 4.6 10 4.0-10.0 White Blood Count [place] ([facility]) hematocrit 40.4 % 36.0-47.0 Hematocrit [place] ([facility]) hemoglobin 12.9 g/dL 12.0-15.5 Hemoglobin [place] ([facility]) red blood count 5.09 10 4.00-5.40 Red Blood Count [place] ([facility]) mean corpuscular volume 79.4 fL 80.0-96.0 Below low normal Mean Corpuscular Volume [place] ([facility]) mean corpuscular HGB conc 31.9 g/dL 32.0-36.5 Below low sudhir l Mean Corpuscular HGB Conc [facility] ([facility]) mean corpuscular hemoglobin 25.3 pg 27.0-33.0 Below low nor mal Mean Corpuscular Hemoglobin [place] ([facility]) red cell distribution width 14.3 % 11.5-14.5 Red Cell Distribution Width [place] ([facility]) lymph % 36.0 % 24.0-44.0 Lymph % [place] ([facility]) neutrophils % 52.6 % 36.0-66.0 Neutrophils % [place] ( [facility]) mono % 6.8 % 2.0-8.0 [place] % [place] ([facility]) platelet count, automated 146 10 150-450 Below low sudhir l Platelet Count, Automated [place] ([facility]) immature granulocyte % 0.9 % 0-3.0 Immature Gran ulocyte % [place] ([facility]) eos % 2.8 % 0.0-3.0 Eos % [place] ([facility]) baso % 0.9 % 0.0-1.0 Baso % [place] ([facility]) lymph # 1.7 10 1.5-5.0 Lymph # [place] ([facility]) neutrophils # 2.4 10 1.5-8.5 Neutrophils # [place] ( [facility]) nucleated red blood cell % 0.0 % 0-0 Nucleated Red Blood Cell % [place] ([facility]) mono # 0.3 10 0.0-0.8 [place] # [facility] ([facility]) eos # 0.1 10 0.0-0.5 Eos # [place] ([facility]) baso # 0.0 10 0.0-0.2 Baso # [facility] ([facility]) ID Date Data Source [id number] 06/30/2020 11:11:00 AM EDT [place] ([facility]) Name Value Range Interpretation Code Description Data Marian rce(s) Supporting Document(s) estimated average glucose 275 mg/dL 60-110 Above high norm al Estimated Average Glucose [place] ([facility]) Hemoglobin A1c/Hemoglobin.total in Blood 11.2 % Hemoglobin a1C [place] ([facility]) ID Date Data Source [id number] 06/30/2020 11:11:00 AM EDT [place] ([facility]) Name Value Range Interpretation Code Description Data Marian rce(s) Supporting Document(s) triglycerides level 563 mg/dL <150 Above high normal Triglycer ides Level [place] ([facility]) cholesterol level 165 mg/dL <200 Cholesterol Level [place] ([facility]) non-HDL-C 139 mg/dL Non-hdl-c [place] ([facility]) HDL cholesterol 26 mg/dL >40 Below low normal HDL Cholestero l [place] ([facility]) cholesterol risk ratio <5 Above high normal Choles terol Risk Ratio [place] ([facility]) ID Date Data Source [id number] 06/30/2020 11:11:00 AM EDT [place] ([facility]) Name Value Range Interpretation Code Description Data Marian rce(s) Supporting Document(s) creatinine for GFR 0.58 mg/dL 0.55-1.30 Creatinine for GF R [place] ([facility]) blood urea nitrogen 10 mg/dL 7-18 Blood Urea Nitro gen [facility] ([facility]) glucose, fasting 341 mg/dL 70-100 Above high normal Glucose, Fas ting [facility] ([facility]) glomerular filtration rate > 60.0 >58 Glomerula r Filtration Rate [place] ([facility]) sodium level 133 mEq/L 136-145 Below low normal Sodium Level [place] ([facility]) carbon dioxide level 26 mEq/L 21-32 Carbon Dioxide Level [place] ([facility]) potassium serum 4.1 mEq/L 3.5-5.1 Potassium Serum ATHE NA ([facility]) chloride level 100 mEq/L 98-107 Chloride Level [place] ([facility]) anion gap 7 mEq/L 8-16 Below low normal Anion Gap [facility] ( [facility]) calcium level 8.7 mg/dL 8.5-10.1 Calcium Level [place] ( [facility]) AST/SGOT 33 U/L 7-37 AST/SGOT [facility] ([facility]) alkaline phosphatase 89 U/L 45-117 Alkaline Phosph atase [facility] ([facility]) bilirubin,total 0.4 mg/dL 0.2-1.0 Bilirubin,total ATHE NA ([facility]) ALT/SGPT 52 U/L 12-78 ALT/SGPT [facility] ([facility]) albumin 3.5 gm/dL 3.2-5.2 Albumin [facility] ([facility]) total protein 6.5 gm/dL 6.4-8.2 Total Protein [facility] ( [facility]) albumin/globulin ratio 1.2-2.2 Albumin/globu claudia Ratio [facility] ([facility]) ID Date Data Source [id number] 06/30/2020 11:11:00 AM EDT [place] ([facility]) Name Value Range Interpretation Code Description Data Marian rce(s) Supporting Document(s) white blood count 4.6 10 4.0-10.0 White Blood Count [facility] ([facility]) red blood count 5.09 10 4.00-5.40 Red Blood Count AT[facility] ([facility]) hemoglobin 12.9 g/dL 12.0-15.5 Hemoglobin [facility] ([facility]) mean corpuscular volume 79.4 fL 80.0-96.0 Below low normal Mean Corpuscular Volume [facility] ([facility]) hematocrit 40.4 % 36.0-47.0 Hematocrit [facility] ([facility]) mean corpuscular HGB conc 31.9 g/dL 32.0-36.5 Below low sudhir l Mean Corpuscular HGB Conc [facility] ([facility]) mean corpuscular hemoglobin 25.3 pg 27.0-33.0 Below low nor mal Mean Corpuscular Hemoglobin [facility] ([facility]) red cell distribution width 14.3 % 11.5-14.5 Red Cell Distribution Width [facility] ([facility]) platelet count, automated 146 10 150-450 Below low sudhir l Platelet Count, Automated [facility] ([facility]) neutrophils % 52.6 % 36.0-66.0 Neutrophils % [facility] ( [facility]) lymph % 36.0 % 24.0-44.0 Lymph % [facility] ([facility]) mono % 6.8 % 2.0-8.0 [place] % [facility] ([facility]) eos % 2.8 % 0.0-3.0 Eos % [place] ([facility]) baso % 0.9 % 0.0-1.0 Baso % [place] ([facility]) immature granulocyte % 0.9 % 0-3.0 Immature Gran ulocyte % [facility] ([facility]) neutrophils # 2.4 10 1.5-8.5 Neutrophils # [place] ( [facility]) lymph # 1.7 10 1.5-5.0 Lymph # [place] ([facility]) nucleated red blood cell % 0.0 % 0-0 Nucleated Red Blood Cell % [facility] ([facility]) mono # 0.3 10 0.0-0.8 [place] # [facility] ([facility]) baso # 0.0 10 0.0-0.2 Baso # [facility] ([facility]) eos # 0.1 10 0.0-0.5 Eos # [facility] ([facility]) ID Date Data Source [id number] 06/30/2020 11:11:00 AM EDT [place] ([facility]) Name Value Range Interpretation Code Description Data Marian rce(s) Supporting Document(s) Hemoglobin A1c/Hemoglobin.total in Blood 11.2 % Hemoglobin a1C [facility] [facility]) estimated average glucose 275 mg/dL 60-110 Above high norm al Estimated Average Glucose [place] ([facility]) ID Date Data Source [id number] 06/30/2020 11:11:00 AM EDT [place] ([facility]) Name Value Range Interpretation Code Description Data Marian rce(s) Supporting Document(s) triglycerides level 563 mg/dL <150 Above high normal Triglycer ides Level [place] ([facility]) non-HDL-C 139 mg/dL Non-hdl-c [facility] ([facility]) HDL cholesterol 26 mg/dL >40 Below low normal HDL Cholestero l [place] ([facility]) cholesterol level 165 mg/dL <200 Cholesterol Level [place] ([facility]) cholesterol risk ratio <5 Above high normal Choles terol Risk Ratio [place] ([facility]) ID Date Data Source [id number] 06/30/2020 11:11:00 AM EDT [place] ([facility]) Name Value Range Interpretation Code Description Data Marian rce(s) Supporting Document(s) glucose, fasting 341 mg/dL 70-100 Above high normal Glucose, Fas ting [place] ([facility]) blood urea nitrogen 10 mg/dL 7-18 Blood Urea Nitro gen [place] ([facility]) creatinine for GFR 0.58 mg/dL 0.55-1.30 Creatinine for GF R [place] ([facility]) chloride level 100 mEq/L 98-107 Chloride Level [place] ([facility]) glomerular filtration rate > 60.0 >58 Glomerula r Filtration Rate [place] ([facility]) sodium level 133 mEq/L 136-145 Below low normal Sodium Level [place] ([facility]) potassium serum 4.1 mEq/L 3.5-5.1 Potassium Serum [place] ([facility]) ALT/SGPT 52 U/L 12-78 ALT/SGPT [place] ([facility]) anion gap 7 mEq/L 8-16 Below low normal Anion Gap [place] ( [facility]) carbon dioxide level 26 mEq/L 21-32 Carbon Dioxide Level [place] ([facility]) AST/SGOT 33 U/L 7-37 AST/SGOT [place] ([facility]) calcium level 8.7 mg/dL 8.5-10.1 Calcium Level [place] ( [facility]) total protein 6.5 gm/dL 6.4-8.2 Total Protein [place] ( [facility]) bilirubin,total 0.4 mg/dL 0.2-1.0 Bilirubin,total [place] ([facility]) albumin 3.5 gm/dL 3.2-5.2 Albumin [place] ([facility]) alkaline phosphatase 89 U/L 45-117 Alkaline Phosph atase [place] ([facility]) albumin/globulin ratio 1.2-2.2 Albumin/globu claudia Ratio [place] ([facility]) ID Date Data Source [id number] 06/30/2020 11:11:00 AM EDT [place] ([facility]) Name Value Range Interpretation Code Description Data Marian rce(s) Supporting Document(s) hemoglobin 12.9 g/dL 12.0-15.5 Hemoglobin [place] ([facility]) red blood count 5.09 10 4.00-5.40 Red Blood Count [place] ([facility]) white blood count 4.6 10 4.0-10.0 White Blood Count [place] ([facility]) hematocrit 40.4 % 36.0-47.0 Hematocrit [place] ([facility]) mean corpuscular hemoglobin 25.3 pg 27.0-33.0 Below low nor mal Mean Corpuscular Hemoglobin [place] ([facility]) mean corpuscular volume 79.4 fL 80.0-96.0 Below low normal Mean Corpuscular Volume [place] ([facility]) platelet count, automated 146 10 150-450 Below low sudhir l Platelet Count, Automated [place] ([facility]) red cell distribution width 14.3 % 11.5-14.5 Red Cell Distribution Width [place] ([facility]) mean corpuscular HGB conc 31.9 g/dL 32.0-36.5 Below low sudhir l Mean Corpuscular HGB Conc [place] ([facility]) neutrophils % 52.6 % 36.0-66.0 Neutrophils % [place] ( [facility]) mono % 6.8 % 2.0-8.0 [place] % [place] ([facility]) eos % 2.8 % 0.0-3.0 Eos % [place] ([facility]) lymph % 36.0 % 24.0-44.0 Lymph % [place] ([facility]) baso % 0.9 % 0.0-1.0 Baso % [place] ([facility]) nucleated red blood cell % 0.0 % 0-0 Nucleated Red Blood Cell % [place] ([facility]) immature granulocyte % 0.9 % 0-3.0 Immature Gran ulocyte % [place] ([facility]) neutrophils # 2.4 10 1.5-8.5 Neutrophils # [place] ( [facility]) baso # 0.0 10 0.0-0.2 Baso # [place] ([facility]) mono # 0.3 10 0.0-0.8 [place] # [facility] ([facility]) lymph # 1.7 10 1.5-5.0 Lymph # [place] ([facility]) eos # 0.1 10 0.0-0.5 Eos # [place] ([facility]) ID Date Data Source [id number] 06/30/2020 11:11:00 AM EDT [place] ([facility]) Name Value Range Interpretation Code Description Data Marian rce(s) Supporting Document(s) non-HDL-C 139 mg/dL Non-hdl-c [place] ([facility]) HDL cholesterol 26 mg/dL >40 Below low normal HDL Cholestero l [place] ([facility]) cholesterol level 165 mg/dL <200 Cholesterol Level [place] ([facility]) triglycerides level 563 mg/dL <150 Above high normal Triglycer ides Level [place] ([facility]) cholesterol risk ratio <5 Above high normal Choles terol Risk Ratio [place] ([facility]) ID Date Data Source [id number] 06/30/2020 11:11:00 AM EDT [place] ([facility]) Name Value Range Interpretation Code Description Data Marian rce(s) Supporting Document(s) blood urea nitrogen 10 mg/dL 7-18 Blood Urea Nitro gen [place] ([facility]) creatinine for GFR 0.58 mg/dL 0.55-1.30 Creatinine for GF R [place] ([facility]) glucose, fasting 341 mg/dL 70-100 Above high normal Glucose, Fas ting [place] ([facility]) sodium level 133 mEq/L 136-145 Below low normal Sodium Level [place] ([facility]) glomerular filtration rate > 60.0 >58 Glomerula r Filtration Rate [place] ([facility]) chloride level 100 mEq/L 98-107 Chloride Level [place] ([facility]) potassium serum 4.1 mEq/L 3.5-5.1 Potassium Serum [place] ([facility]) anion gap 7 mEq/L 8-16 Below low normal Anion Gap [place] ( [facility]) calcium level 8.7 mg/dL 8.5-10.1 Calcium Level [place] ( [facility]) carbon dioxide level 26 mEq/L 21-32 Carbon Dioxide Level [place] ([facility]) bilirubin,total 0.4 mg/dL 0.2-1.0 Bilirubin,total [place] ([facility]) ALT/SGPT 52 U/L 12-78 ALT/SGPT [place] ([facility]) AST/SGOT 33 U/L 7-37 AST/SGOT [place] ([facility]) alkaline phosphatase 89 U/L 45-117 Alkaline Phosph atase [place] ([facility]) total protein 6.5 gm/dL 6.4-8.2 Total Protein [place] ( [facility]) albumin 3.5 gm/dL 3.2-5.2 Albumin [place] ([facility]) albumin/globulin ratio 1.2-2.2 Albumin/globu claudia Ratio [place] ([facility]) ID Date Data Source [id number] 06/30/2020 11:11:00 AM EDT [place] ([facility]) Name Value Range Interpretation Code Description Data Marian rce(s) Supporting Document(s) white blood count 4.6 10 4.0-10.0 White Blood Count [place] ([facility]) red blood count 5.09 10 4.00-5.40 Red Blood Count [place] ([facility]) mean corpuscular volume 79.4 fL 80.0-96.0 Below low normal Mean Corpuscular Volume [place] ([facility]) hematocrit 40.4 % 36.0-47.0 Hematocrit [place] ([facility]) hemoglobin 12.9 g/dL 12.0-15.5 Hemoglobin [place] ([facility]) red cell distribution width 14.3 % 11.5-14.5 Red Cell Distribution Width [place] ([facility]) platelet count, automated 146 10 150-450 Below low sudhir l Platelet Count, Automated [place] ([facility]) mean corpuscular hemoglobin 25.3 pg 27.0-33.0 Below low nor mal Mean Corpuscular Hemoglobin [place] ([facility]) mean corpuscular HGB conc 31.9 g/dL 32.0-36.5 Below low sudhir l Mean Corpuscular HGB Conc [place] ([facility]) mono % 6.8 % 2.0-8.0 [place] % [place] ([facility]) lymph % 36.0 % 24.0-44.0 Lymph % [place] ([facility]) neutrophils % 52.6 % 36.0-66.0 Neutrophils % [place] ( [facility]) immature granulocyte % 0.9 % 0-3.0 Immature Gran ulocyte % [place] ([facility]) baso % 0.9 % 0.0-1.0 Baso % [place] ([facility]) eos % 2.8 % 0.0-3.0 Eos % [place] ([facility]) nucleated red blood cell % 0.0 % 0-0 Nucleated Red Blood Cell % [place] ([facility]) neutrophils # 2.4 10 1.5-8.5 Neutrophils # [place] ( [facility]) lymph # 1.7 10 1.5-5.0 Lymph # [place] ([facility]) eos # 0.1 10 0.0-0.5 Eos # [place] ([facility]) baso # 0.0 10 0.0-0.2 Baso # [place] ([facility]) mono # 0.3 10 0.0-0.8 [place] # [place] ([facility]) ID Date Data Source [id number] 06/30/2020 11:11:00 AM EDT [place] ([facility]) Name Value Range Interpretation Code Description Data Marian rce(s) Supporting Document(s) estimated average glucose 275 mg/dL 60-110 Above high norm al Estimated Average Glucose [place] ([facility]) Hemoglobin A1c/Hemoglobin.total in Blood 11.2 % Hemoglobin a1C [place] ([facility]) ID Date Data Source [id number] 06/30/2020 11:11:00 AM EDT [place] ([facility]) Name Value Range Interpretation Code Description Data Marian rce(s) Supporting Document(s) cholesterol level 165 mg/dL <200 Cholesterol Level [place] ([facility]) HDL cholesterol 26 mg/dL >40 Below low normal HDL Cholestero l [place] ([facility]) triglycerides level 563 mg/dL <150 Above high normal Triglycer ides Level [place] ([facility]) non-HDL-C 139 mg/dL Non-hdl-c [place] ([facility]) cholesterol risk ratio <5 Above high normal Choles terol Risk Ratio [place] ([facility]) ID Date Data Source [id number] 06/30/2020 11:11:00 AM EDT [place] ([facility]) Name Value Range Interpretation Code Description Data Marian rce(s) Supporting Document(s) glucose, fasting 341 mg/dL 70-100 Above high normal Glucose, Fas ting [place] ([facility]) creatinine for GFR 0.58 mg/dL 0.55-1.30 Creatinine for GF R [place] ([facility]) blood urea nitrogen 10 mg/dL 7-18 Blood Urea Nitro gen [place] ([facility]) glomerular filtration rate > 60.0 >58 Glomerula r Filtration Rate [place] ([facility]) potassium serum 4.1 mEq/L 3.5-5.1 Potassium Serum [place] ([facility]) sodium level 133 mEq/L 136-145 Below low normal Sodium Level [place] ([facility]) carbon dioxide level 26 mEq/L 21-32 Carbon Dioxide Level [place] ([facility]) anion gap 7 mEq/L 8-16 Below low normal Anion Gap [place] ( [facility]) chloride level 100 mEq/L 98-107 Chloride Level [place] ([facility]) AST/SGOT 33 U/L 7-37 AST/SGOT [place] ([facility]) calcium level 8.7 mg/dL 8.5-10.1 Calcium Level [place] ( [facility]) ALT/SGPT 52 U/L 12-78 ALT/SGPT [place] ([facility]) alkaline phosphatase 89 U/L 45-117 Alkaline Phosph atase [place] ([facility]) bilirubin,total 0.4 mg/dL 0.2-1.0 Bilirubin,total [place] ([facility]) albumin/globulin ratio 1.2-2.2 Albumin/globu claudia Ratio [place] ([facility]) albumin 3.5 gm/dL 3.2-5.2 Albumin [place] ([facility]) total protein 6.5 gm/dL 6.4-8.2 Total Protein [place] ( [facility]) ID Date Data Source [id number] 06/30/2020 11:11:00 AM EDT [place] ([facility]) Name Value Range Interpretation Code Description Data Marian rce(s) Supporting Document(s) white blood count 4.6 10 4.0-10.0 White Blood Count [place] ([facility]) red blood count 5.09 10 4.00-5.40 Red Blood Count [place] ([facility]) hematocrit 40.4 % 36.0-47.0 Hematocrit [place] ([facility]) mean corpuscular volume 79.4 fL 80.0-96.0 Below low normal Mean Corpuscular Volume [place] ([facility]) hemoglobin 12.9 g/dL 12.0-15.5 Hemoglobin [place] ([facility]) mean corpuscular HGB conc 31.9 g/dL 32.0-36.5 Below low sudhir l Mean Corpuscular HGB Conc [place] ([facility]) red cell distribution width 14.3 % 11.5-14.5 Red Cell Distribution Width [place] ([facility]) mean corpuscular hemoglobin 25.3 pg 27.0-33.0 Below low nor mal Mean Corpuscular Hemoglobin [place] ([facility]) neutrophils % 52.6 % 36.0-66.0 Neutrophils % [place] ( [facility]) platelet count, automated 146 10 150-450 Below low sudhir l Platelet Count, Automated [place] ([facility]) lymph % 36.0 % 24.0-44.0 Lymph % [place] ([facility]) mono % 6.8 % 2.0-8.0 [place] % [place] ([facility]) eos % 2.8 % 0.0-3.0 Eos % [place] ([facility]) immature granulocyte % 0.9 % 0-3.0 Immature Gran ulocyte % [place] ([facility]) baso % 0.9 % 0.0-1.0 Baso % [place] ([facility]) nucleated red blood cell % 0.0 % 0-0 Nucleated Red Blood Cell % [place] ([facility]) neutrophils # 2.4 10 1.5-8.5 Neutrophils # [place] ( [facility]) mono # 0.3 10 0.0-0.8 [place] # [facility] ([facility]) lymph # 1.7 10 1.5-5.0 Lymph # [place] ([facility]) baso # 0.0 10 0.0-0.2 Baso # [place] ([facility]) eos # 0.1 10 0.0-0.5 Eos # [place] ([facility]) ID Date Data Source [id number] 06/30/2020 11:11:00 AM EDT [place] ([facility]) Name Value Range Interpretation Code Description Data Marian rce(s) Supporting Document(s) Hemoglobin A1c/Hemoglobin.total in Blood 11.2 % Hemoglobin a1C [place] ([facility]) estimated average glucose 275 mg/dL 60-110 Above high norm al Estimated Average Glucose [place] ([facility]) ID Date Data Source [id number] 06/14/2020 12:00:00 PM EST [facility] ([facility], ) Name Value Range Interpretation Code Description Data Marian rce(s) Supporting Document(s) Bacteria identified in Abscess by Aerobe culture Laboratory test result Normal (applies to non-numeric results) [facility] ([facility], ) <content>FULL REPORT IN LAB NOTES (eCW a nd [facility]).</content>
<content></content>
<content>ORGANISM 1: STAPHYLOCOCCUS AUREUS</content>
<content></content>
<content>QUANTITY OF GROWTH MODERATE</content>
<content></content>
<content></content>
<content> </content>
<content></content>
<content>ORGANISM 1: STAPHYLOCOCCUS AUREUS</content>
<content></content>
<content>STAPHYLOCOCCUS AUREUS: REACTION</content>
<content>ICR (INDUCIBLE CC RESISTANCE) IV ICR TEST RESULT</content>
<content>TETRACYCLINE PO 250 mg qid <=1 S</content>
<content> PENICILLIN G IV 1 mu q6h 0.06 R</content>
<content>PENICILLIN G PO 250mg q6h fasting 0.06 R</content>
<content>TRIMETHOPRIM/SULFAMETHOXAZOLE IV 160mg TMP & 800mg SMXq6h <=10 S</content>
<content>TRIMETHOPRIM/SULFAMETHOXAZOLE PO Bactrim DS Bid <=10 S</content>
<content>ERYTHROMYCIN IV 500mg q6h <=0.25 S</content>
<content>ERYTHROMYCIN PO 500mg q6h <=0.25 S</content>
<content>GENTAMICIN IV 80mg q8h <=0.5 S</content>
<content>CLINDAMYCIN IV 600mg q6h 0.25 S</content>
<content>CLINDAMYCIN PO 150mg q6h 0.25 S</content>
<content>OXACILLIN IV 500mg q6h <=0.25 S</content>
<content>VANCOMYCIN IV 500mg q8h <=0.5 S</content>
<content>LINEZOLID (ZYVOX) IV 600MG Q12HR 2 S</content>
<content>LINEZOLID (ZYVOX) PO 600MG Q12HR 2 S</content>
<content>An isolate with a (+) POSITIVE ICR test is considered</content>
<content>CLINDAMYCIN RESISTANT; however, clindamycin may still</content>
<content>be effective in some patients.</content>
<content>An isolate with a (-) NEGATIVE ICR test is considered</content>
<content>CLIDAMYCIN SENSITIVE.</content>
<content>Oxacillin result predicts susceptibility to all penicillinase-stable</content>
<content>penicillins (Nafcillin, Dicloxacilin), Cephalosporins, Carbapenems,</content>
<content>Amoxicillin/Clavulanate & Ampicillin/Sulbactam per [facility] standards.</content>
<content></content> ID Date Data Source [id number] 06/12/2020 04:08:00 AM EST [facility] Name Value Range Interpretation Code Description Data Marian rce(s) Supporting Document(s) SARS-CoV-2 (COVID 19) NEGATIVE - SARS-CoV-2 (COVID19) [facility] This lab was ordered by [facility] a nd reported by [facility]. ID Date Data Source [id number] 01/22/2020 12:00:00 AM EDT eCW1 ([facility]) Name Value Range Interpretation Code Description Data Marian rce(s) Supporting Document(s) Hemoglobin A1c/Hemoglobin.total in Blood 10.1 HEMOGLOBIN A1c eCW1 ([facility]) Procedure Social History Code Duration Value Status Description Data Source(s ) Smoking 02/03/2021 12:00:00 AM EDT Unknown if ever smoked comp leted Unknown if ever smoked [facility] ([facility]) Smoking 01/26/2021 12:00:00 AM EDT Unknown if ever smoked comp leted Unknown if ever smoked [facility] ([facility]) Smoking 01/07/2021 12:00:00 AM EDT Unknown if ever smoked comp leted Unknown if ever smoked [facility] ([facility]) Smoking 12/29/2020 12:00:00 AM EDT Unknown if ever smoked comp leted Unknown if ever smoked [facility] ([facility]) Smoking 12/14/2020 12:00:00 AM EDT Unknown if ever smoked comp leted Unknown if ever smoked [facility] ([facility]) Smoking 11/25/2020 12:00:00 AM EDT Unknown if ever smoked comp leted Unknown if ever smoked [facility] ([facility]) Smoking 11/12/2020 12:00:00 AM EDT Unknown if ever smoked comp leted Unknown if ever smoked [facility] ([facility]) Smoking 11/10/2020 12:00:00 AM EDT Unknown if ever smoked comp leted Unknown if ever smoked [facility] ([facility]) Smoking 10/28/2020 12:00:00 AM EDT Unknown if ever smoked comp leted Unknown if ever smoked [facility] ([facility]) Smoking 10/19/2020 12:00:00 AM EDT Unknown if ever smoked comp leted Unknown if ever smoked [facility] ([facility]) Smoking 09/29/2020 12:00:00 AM EDT Unknown if ever smoked comp leted Unknown if ever smoked [facility] ([facility]) Smoking 09/21/2020 12:00:00 AM EDT Unknown if ever smoked comp leted Unknown if ever smoked [facility] ([facility]) Smoking 09/14/2020 12:00:00 AM EDT Unknown if ever smoked comp leted Unknown if ever smoked [facility] ([facility]) Smoking 09/01/2020 12:00:00 AM EDT Unknown if ever smoked comp leted Unknown if ever smoked [facility] ([facility]) Smoking 07/22/2020 12:00:00 AM EDT Unknown if ever smoked comp leted Unknown if ever smoked [facility] ([facility]) Smoking 07/20/2020 12:00:00 AM EDT Unknown if ever smoked comp leted Unknown if ever smoked [facility] ([facility]) Smoking 07/01/2020 12:00:00 AM EDT Unknown if ever smoked comp leted Unknown if ever smoked [facility] ([facility]) Smoking 06/22/2020 12:00:00 AM EDT Unknown if ever smoked comp leted Unknown if ever smoked [facility] ([facility]) Smoking 06/04/2020 12:00:00 AM EST Unknown if ever smoked comp leted Unknown if ever smoked [facility] ([facility]) Smoking 05/25/2020 12:00:00 AM EST Unknown if ever smoked comp leted Unknown if ever smoked [facility] ([facility]) Smoking 05/21/2020 12:00:00 AM EST Unknown if ever smoked comp leted Unknown if ever smoked [facility] ([facility]) Smoking 05/14/2020 12:00:00 AM EST Unknown if ever smoked comp leted Unknown if ever smoked [facility] ([facility]) Smoking 05/07/2020 12:00:00 AM EST Unknown if ever smoked comp leted Unknown if ever smoked [facility] ([facility]) Smoking 04/28/2020 12:00:00 AM EST Unknown if ever smoked comp leted Unknown if ever smoked [facility] ([facility]) Smoking 04/27/2020 12:00:00 AM EST Unknown if ever smoked comp leted Unknown if ever smoked [facility] ([facility]) Smoking 04/14/2020 12:00:00 AM EST Unknown if ever smoked comp leted Unknown if ever smoked [facility] ([facility]) Smoking 03/30/2020 12:00:00 AM EST Unknown if ever smoked comp leted Unknown if ever smoked [facility] ([facility]) Smoking 03/16/2020 12:00:00 AM EST Unknown if ever smoked comp leted Unknown if ever smoked [facility] ([facility]) Smoking 03/02/2020 12:00:00 AM EST Unknown if ever smoked comp leted Unknown if ever smoked [facility] ([facility]) Smoking 02/17/2020 12:00:00 AM EST Unknown if ever smoked comp leted Unknown if ever smoked [facility] ([facility]) Smoking 02/03/2020 12:00:00 AM EDT Unknown if ever smoked comp leted Unknown if ever smoked [facility] ([facility]) Smoking 01/22/2020 12:00:00 AM EDT Never Smoker completed Never S moker eCW1 ([facility]) Smoking 01/22/2020 12:00:00 AM EDT Never Smoker completed Never S moker eCW1 ([facility]) Smoking 01/22/2020 12:00:00 AM EDT Never Smoker completed Never S moker eCW1 ([facility]) Smoking 01/22/2020 12:00:00 AM EDT Never Smoker completed Never S moker eCW1 ([facility]) Smoking 01/22/2020 12:00:00 AM EDT Never Smoker completed Never S moker eCW1 ([facility]) Smoking 01/22/2020 12:00:00 AM EDT Never Smoker completed Never S moker eCW1 ([facility]) Smoking 01/22/2020 12:00:00 AM EDT Never Smoker completed Never S moker eCW1 ([facility]) Smoking 01/22/2020 12:00:00 AM EDT Never Smoker completed Never S moker eCW1 ([facility]) Smoking 01/22/2020 12:00:00 AM EDT Never Smoker completed Never S moker eCW1 ([facility]) Smoking 01/22/2020 12:00:00 AM EDT Never Smoker completed Never S moker eCW1 ([facility]) Smoking 01/22/2020 12:00:00 AM EDT Never Smoker completed Never S moker eCW1 ([facility]) Smoking 01/22/2020 12:00:00 AM EDT Never Smoker completed Never S moker eCW1 ([facility]) Smoking 01/22/2020 12:00:00 AM EDT Never Smoker completed Never S moker eCW1 ([facility]) Smoking 01/22/2020 12:00:00 AM EDT Never Smoker completed Never S moker eCW1 ([facility]) Smoking 01/20/2020 12:00:00 AM EDT Unknown if ever smoked comp leted Unknown if ever smoked [facility] ([facility] [facility] Smoking 01/13/2020 12:00:00 AM EDT Unknown if ever smoked comp leted Unknown if ever smoked [facility] ([facility]) Smoking 01/06/2020 12:00:00 AM EDT Unknown if ever smoked comp leted Unknown if ever smoked [facility] ([facility]) Vital Signs ID Date Data Source UNK Name Value Range Interpretation Code Description Data Source(s) Body temperature 97.1 [degF] 97.1 [degF] MEDENT ([facility]) Body height 67 [in_i] 67 [in_i] MEDENT ([facility]) 5'7" Body weight 245.25 [lb_av] 245.25 [lb_av] MEDEN T ([facility] ) Body mass index (BMI) [Ratio] 38.4 kg/m2 38.4 k g/m2 MEDENT ([facility] ) Diastolic blood pressure 87 mm[Hg] 87 mm[Hg] TONEY ([facility]) Body height 66 [in_i] 66 [in_i] TONEY ([facility]) Body mass index (BMI) [Ratio] 40.1 kg/m2 40.1 k g/m2 TONEY ([facility]) Systolic blood pressure 123 mm[Hg] 123 mm[Hg] A [facility] ([facility]) Body weight 3976 [oz_av] 3976 [oz_av] TONEY ([facility]) Diastolic blood pressure 83 mm[Hg] 83 mm[Hg] TONEY ([facility]) Systolic blood pressure 125 mm[Hg] 125 mm[Hg] A [facility] ([facility]) Body height 66 [in_i] 66 [in_i] TONEY ([facility]) Diastolic blood pressure 83 mm[Hg] 83 mm[Hg] TONEY ([facility]) Body height 66 [in_i] 66 [in_i] TONEY ([facility]) Systolic blood pressure 125 mm[Hg] 125 mm[Hg] A [facility] ([facility]) Diastolic blood pressure 80 mm[Hg] 80 mm[Hg] TONEY ([facility]) Body height 66 [in_i] 66 [in_i] TONEY ([facility]) Body mass index (BMI) [Ratio] 39.9 kg/m2 39.9 k g/m2 TONEY ([facility]) Systolic blood pressure 121 mm[Hg] 121 mm[Hg] [facility] Body weight 3960 [oz_av] 3960 [oz_av] TONEY ([facility]) Systolic blood pressure 121 mm[Hg] 121 mm[Hg] [facility] Body weight 3960 [oz_av] 3960 [oz_av] TONEY ([facility]) Diastolic blood pressure 80 mm[Hg] 80 mm[Hg] TONEY ([facility]) Body height 66 [in_i] 66 [in_i] TONEY ([facility]) Body mass index (BMI) [Ratio] 39.9 kg/m2 39.9 k g/m2 TONEY ([facility]) Body height 66 [in_i] 66 [in_i] TONEY ([facility]) Diastolic blood pressure 80 mm[Hg] 80 mm[Hg] TONEY ([facility]) Body mass index (BMI) [Ratio] 39.9 kg/m2 39.9 k g/m2 TONEY ([facility]) Systolic blood pressure 121 mm[Hg] 121 mm[Hg] A [facility] ([facility]) Body weight 3960 [oz_av] 3960 [oz_av] TONEY ([facility]) Systolic blood pressure 158 mm[Hg] Normal (applies t o non-numeric results) 158 mm[Hg] [facility] ([facility]) Diastolic blood pressure 90 mm[Hg] Normal (applies to non-numeric results) 90 mm[Hg] [facility] ([facility]) Body height --lying 90 min Normal (applies to non-nume quang results) 90 min [facility] ([facility]) Respiratory rate 16 min Normal (applies to non-numeric results) 16 min [facility] ([facility]) Diastolic blood pressure 84 mm[Hg] 84 mm[Hg] TONEY ([facility]) Body height 66 [in_i] 66 [in_i] TONEY ([facility]) Body mass index (BMI) [Ratio] 40.5 kg/m2 40.5 k g/m2 TONEY ([facility]) Systolic blood pressure 121 mm[Hg] 121 mm[Hg] A THENA ([facility]) Body weight 4018 [oz_av] 4018 [oz_av] TONEY ([facility]) Diastolic blood pressure 84 mm[Hg] 84 mm[Hg] TONEY ([facility]) Body height 66 [in_i] 66 [in_i] TONEY ([facility]) Body mass index (BMI) [Ratio] 40.5 kg/m2 40.5 k g/m2 TONEY ([facility]) Systolic blood pressure 121 mm[Hg] 121 mm[Hg] A THENA ([facility]) Body weight 4018 [oz_av] 4018 [oz_av] TONEY ([facility]) Diastolic blood pressure 84 mm[Hg] 84 mm[Hg] TONEY ([facility]) Body height 66 [in_i] 66 [in_i] TONEY ([facility]) Body mass index (BMI) [Ratio] 40.5 kg/m2 40.5 k g/m2 TONEY ([facility]) Systolic blood pressure 121 mm[Hg] 121 mm[Hg] A THENA ([facility]) Body weight 4018 [oz_av] 4018 [oz_av] TONEY ([facility]) Diastolic blood pressure 84 mm[Hg] 84 mm[Hg] TONEY ([facility]) Body height 66 [in_i] 66 [in_i] TONEY ([facility]) Body mass index (BMI) [Ratio] 40.5 kg/m2 40.5 k g/m2 TONEY ([facility]) Systolic blood pressure 121 mm[Hg] 121 mm[Hg] A THENA ([facility]) Body weight 4018 [oz_av] 4018 [oz_av] TONEY ([facility]) Body height 66 [in_i] 66 [in_i] TONEY ([facility]) Body height 66 [in_i] 66 [in_i] TONEY ([facility]) Body height 66 [in_i] 66 [in_i] TONEY ([facility]) Body height 66 [in_i] 66 [in_i] TONEY ([facility]) Body height 66 [in_i] 66 [in_i] TONEY ([facility]) Diastolic blood pressure 83 mm[Hg] 83 mm[Hg] TONEY ([facility]) Body height 66 [in_i] 66 [in_i] TONEY ([facility]) Body mass index (BMI) [Ratio] 40 kg/m2 40 kg/ m2 TONEY ([facility]) Systolic blood pressure 116 mm[Hg] 116 mm[Hg] [facility] Body weight 3970 [oz_av] 3970 [oz_av] TONEY ([facility]) Diastolic blood pressure 83 mm[Hg] 83 mm[Hg] TONEY ([facility]) Body height 66 [in_i] 66 [in_i] TONEY ([facility]) Body mass index (BMI) [Ratio] 40 kg/m2 40 kg/ m2 TONEY ([facility]) Systolic blood pressure 116 mm[Hg] 116 mm[Hg] [facility]) Body weight 3970 [oz_av] 3970 [oz_av] TONEY ([facility]) Diastolic blood pressure 83 mm[Hg] 83 mm[Hg] TONEY ([facility]) Body height 66 [in_i] 66 [in_i] TONEY ([facility]) Body mass index (BMI) [Ratio] 40 kg/m2 40 kg/ m2 TONEY ([facility]) Systolic blood pressure 116 mm[Hg] 116 mm[Hg] [facility] Body weight 3970 [oz_av] 3970 [oz_av] TONEY ([facility]) Systolic blood pressure 116 mm[Hg] 116 mm[Hg] A THENA ([facility]) Body weight 3970 [oz_av] 3970 [oz_av] TONEY ([facility]) Diastolic blood pressure 83 mm[Hg] 83 mm[Hg] TONEY ([facility]) Body height 66 [in_i] 66 [in_i] TONEY ([facility]) Body mass index (BMI) [Ratio] 40 kg/m2 40 kg/ m2 TONEY ([facility]) Diastolic blood pressure 83 mm[Hg] 83 mm[Hg] TONEY ([facility]) Body height 66 [in_i] 66 [in_i] TONEY ([facility]) Body mass index (BMI) [Ratio] 40 kg/m2 40 kg/ m2 TONEY ([facility]) Systolic blood pressure 116 mm[Hg] 116 mm[Hg] A THENA ([facility]) Body weight 3970 [oz_av] 3970 [oz_av] TONEY ([facility]) Diastolic blood pressure 83 mm[Hg] 83 mm[Hg] TONEY ([facility]) Body height 66 [in_i] 66 [in_i] TONEY ([facility]) Body mass index (BMI) [Ratio] 40 kg/m2 40 kg/ m2 TONEY ([facility]) Systolic blood pressure 116 mm[Hg] 116 mm[Hg] A THENA ([facility]) Body weight 3970 [oz_av] 3970 [oz_av] TONEY ([facility]) Body mass index (BMI) [Ratio] 39.6 kg/m2 39.6 k g/m2 MEDENT ([facility], ) Systolic blood pressure 121 mm[Hg] 121 mm[Hg] M EDENT ([facility]) Diastolic blood pressure 86 mm[Hg] 86 mm[Hg] MEDENT ([facility]) Nuevo body weight 130 [lb_av] 130 [lb_av] MEDEN T ([facility]) Body weight 111.245 kg 111.245 kg MEDENT ([facility]) Body surface area Derived from formula 2.18 m2 2.18 m2 MEDENT ([facility]) Body height 66 [in_i] 66 [in_i] MEDENT ([facility]) 5'6" Body weight 245.25 [lb_av] 245.25 [lb_av] MEDEN T ([facility]) Body mass index (BMI) [Ratio] 39.6 kg/m2 39.6 k g/m2 MEDENT ([facility], ) [place] body weight 130 [lb_av] 130 [lb_av] MEDEN T ([facility]) Body weight 111.245 kg 111.245 kg MEDENT ([facility]) Body surface area Derived from formula 2.18 m2 2.18 m2 MEDENT ([facility]) Heart rate 106 /min 106 /min MEDENT ([facility]) Body height 66 [in_i] 66 [in_i] MEDENT ([facility]) 5'6" Body weight 245.25 [lb_av] 245.25 [lb_av] MEDEN T ([facility], ) Body height 66 [in_i] 66 [in_i] TONEY ([facility]) Body height 66 [in_i] 66 [in_i] TONEY ([facility]) Body height 66 [in_i] 66 [in_i] TONEY ([facility]) Body height 66 [in_i] 66 [in_i] TONEY ([facility]) Body height 66 [in_i] 66 [in_i] TONEY ([facility]) Body height 66 [in_i] 66 [in_i] TONEY ([facility]) Body height 66 [in_i] 66 [in_i] TONEY ([facility]) Body height 66 [in_i] 66 [in_i] TONEY ([facility]) Body height 66 [in_i] 66 [in_i] TONEY ([facility]) Systolic blood pressure 150 mm[Hg] 150 mm[Hg] M EDTEDDY ([facility], ) Diastolic blood pressure 82 mm[Hg] 82 mm[Hg] MEDTEDDY ([facility], ) Body height 66 [in_i] 66 [in_i] [facility] ([facility], ) 5'6" Body surface area Derived from formula 2.20 m2 [address] [facility] ([facility], ) Body height 66 [in_i] 66 [in_i] [facility] ([facility], ) 5'6" Body weight 250.00 [lb_av] 250.00 [lb_av] MEDEN T ([facility], ) Body mass index (BMI) [Ratio] 40.3 kg/m2 40.3 k g/m2 [facility] ([facility], ) [place] body weight 130 [lb_av] 130 [lb_av] MEDEN T ([facility], ) Body weight 113.[address] [facility] ([facility], ) Body weight 250.00 [lb_av] 250.00 [lb_av] MEDEN T ([facility], ) Body mass index (BMI) [Ratio] 40.3 kg/m2 40.3 k g/m2 MEDENT ([facility]) [place] body weight 130 [lb_av] 130 [lb_av] MEDEN T ([facility]) Body weight 113.400 kg 113.400 kg [facility]) Body surface area Derived from formula 2.20 m2 2.20 m2 [facility]) Diastolic blood pressure 89 mm[Hg] 89 mm[Hg] TONEY ([facility]) Body height 66 [in_i] 66 [in_i] TONEY ([facility]) Body mass index (BMI) [Ratio] 40.1 kg/m2 40.1 k g/m2 TONEY ([facility]) Systolic blood pressure 130 mm[Hg] 130 mm[Hg] [facility] Body weight 3977.6 [oz_av] 3977.6 [oz_av] ATHEN A ([facility]) Systolic blood pressure 130 mm[Hg] 130 mm[Hg] [facility]) Body weight 3977.6 [oz_av] 3977.6 [oz_av] ATHEN A ([facility]) Diastolic blood pressure 89 mm[Hg] 89 mm[Hg] TONEY ([facility]) Body height 66 [in_i] 66 [in_i] TONEY ([facility]) Body mass index (BMI) [Ratio] 40.1 kg/m2 40.1 k g/m2 TONEY ([facility]) Diastolic blood pressure 89 mm[Hg] 89 mm[Hg] TONEY ([facility]) Body height 66 [in_i] 66 [in_i] TONEY ([facility]) Body mass index (BMI) [Ratio] 40.1 kg/m2 40.1 k g/m2 TONEY ([facility]) Systolic blood pressure 130 mm[Hg] 130 mm[Hg] A [facility] ([facility]) Body weight 3977.6 [oz_av] 3977.6 [oz_av] ATHEN A ([facility]) Diastolic blood pressure 89 mm[Hg] 89 mm[Hg] TONEY ([facility]) Body height 66 [in_i] 66 [in_i] TONEY ([facility]) Body mass index (BMI) [Ratio] 40.1 kg/m2 40.1 k g/m2 TONEY ([facility]) Systolic blood pressure 130 mm[Hg] 130 mm[Hg] [facility]) Body weight 3977.6 [oz_av] 3977.6 [oz_av] ATHEN A ([facility]) Diastolic blood pressure 89 mm[Hg] 89 mm[Hg] TONEY ([facility]) Body height 66 [in_i] 66 [in_i] TONEY ([facility]) Body mass index (BMI) [Ratio] 40.1 kg/m2 40.1 k g/m2 TONEY ([facility]) Systolic blood pressure 130 mm[Hg] 130 mm[Hg] [facility] ([facility]) Body weight 3977.6 [oz_av] 3977.6 [oz_av] ATHEN A ([facility]) Diastolic blood pressure 89 mm[Hg] 89 mm[Hg] TONEY ([facility]) Body height 66 [in_i] 66 [in_i] TONEY ([facility]) Body mass index (BMI) [Ratio] 40.1 kg/m2 40.1 k g/m2 TONEY ([facility]) Systolic blood pressure 130 mm[Hg] 130 mm[Hg] A THENA ([facility]) Body weight 3977.6 [oz_av] 3977.6 [oz_av] ATHEN A ([facility]) Diastolic blood pressure 89 mm[Hg] 89 mm[Hg] TONEY ([facility]) Body height 66 [in_i] 66 [in_i] TONEY ([facility]) Body mass index (BMI) [Ratio] 40.1 kg/m2 40.1 k g/m2 TONEY ([facility]) Systolic blood pressure 130 mm[Hg] 130 mm[Hg] [facility] ([facility]) Body weight 3977.6 [oz_av] 3977.6 [oz_av] ATHEN A ([facility]) Diastolic blood pressure 89 mm[Hg] 89 mm[Hg] TONEY ([facility]) Body height 66 [in_i] 66 [in_i] TONEY ([facility]) Body mass index (BMI) [Ratio] 40.1 kg/m2 40.1 k g/m2 TONEY ([facility]) Systolic blood pressure 130 mm[Hg] 130 mm[Hg] A THENA ([facility]) Body weight 3977.6 [oz_av] 3977.6 [oz_av] ATHEN A ([facility]) Systolic blood pressure 130 mm[Hg] 130 mm[Hg] A THENA ([facility]) Body weight 3977.6 [oz_av] 3977.6 [oz_av] ATHEN A ([facility]) Diastolic blood pressure 89 mm[Hg] 89 mm[Hg] TONEY ([facility]) Body height 66 [in_i] 66 [in_i] TONEY ([facility]) Body mass index (BMI) [Ratio] 40.1 kg/m2 40.1 k g/m2 TONEY ([facility]) Diastolic blood pressure 89 mm[Hg] 89 mm[Hg] TONEY ([facility]) Body height 66 [in_i] 66 [in_i] TONEY ([facility]) Body mass index (BMI) [Ratio] 40.1 kg/m2 40.1 k g/m2 TONEY ([facility]) Systolic blood pressure 130 mm[Hg] 130 mm[Hg] A THENA ([facility]) Body weight 3977.6 [oz_av] 3977.6 [oz_av] ATHEN A ([facility]) Diastolic blood pressure 85 mm[Hg] 85 mm[Hg] ADOLPH ([facility]) Systolic blood pressure 131 mm[Hg] 131 mm[Hg] Dayna VARGAS ([facility]) Heart rate 87 /min 87 /min ADOLPH ([facility]) Body height 66 [in_i] 66 [in_i] [facility] 5'[facility]" Body weight 249.25 [lb_av] 249.25 [lb_av] MEDEN T ([facility]) Body mass index (BMI) [Ratio] 40.2 kg/m2 40.2 k g/m2 [facility] ([facility]) [place]vo body weight 130 [lb_av] 130 [lb_av] MEDEN T ([facility]) Body weight 113.060 [address] [facility] ([facility]) Body surface area Derived from formula 2.20 m2 [address] [facility] ([facility]) Body height 66 [in_i] 66 [in_i] TONEY ([facility]) Body mass index (BMI) [Ratio] 39.5 kg/m2 39.5 k g/m2 TONEY ([facility]) Body weight 3920 [oz_av] 3920 [oz_av] TONEY ([facility]) Body mass index (BMI) [Ratio] 39.5 kg/m2 39.5 k g/m2 TONEY ([facility]) Body height 66 [in_i] 66 [in_i] TONEY ([facility]) Body weight 3920 [oz_av] 3920 [oz_av] TONEY ([facility]) Body height 66 [in_i] 66 [in_i] TONEY ([facility]) Body mass index (BMI) [Ratio] 39.5 kg/m2 39.5 k g/m2 TONEY ([facility]) Body weight 3920 [oz_av] 3920 [oz_av] TONEY ([facility]) Body height 66 [in_i] 66 [in_i] TONEY ([facility]) Body mass index (BMI) [Ratio] 39.5 kg/m2 39.5 k g/m2 TONEY ([facility]) Body weight 3920 [oz_av] 3920 [oz_av] TONEY ([facility]) Body height 66 [in_i] 66 [in_i] TONEY ([facility]) Body mass index (BMI) [Ratio] 39.5 kg/m2 39.5 k g/m2 TONEY ([facility]) Body weight 3920 [oz_av] 3920 [oz_av] TONEY ([facility]) Body height 66 [in_i] 66 [in_i] TONEY ([facility]) Body mass index (BMI) [Ratio] 39.5 kg/m2 39.5 k g/m2 TONEY ([facility]) Body weight 3920 [oz_av] 3920 [oz_av] TONEY ([facility]) Body height 66 [in_i] 66 [in_i] TONEY ([facility]) Body mass index (BMI) [Ratio] 39.5 kg/m2 39.5 k g/m2 TONEY ([facility]) Body weight 3920 [oz_av] 3920 [oz_av] TONEY ([facility]) Body height 66 [in_i] 66 [in_i] TONEY ([facility]) Body mass index (BMI) [Ratio] 39.5 kg/m2 39.5 k g/m2 TONEY ([facility]) Body weight 3920 [oz_av] 3920 [oz_av] TONEY ([facility]) Body height 66 [in_i] 66 [in_i] TONEY ([facility]) Body mass index (BMI) [Ratio] 39.5 kg/m2 39.5 k g/m2 TONEY ([facility]) Body weight 3920 [oz_av] 3920 [oz_av] TONEY ([facility]) Body height 66 [in_i] 66 [in_i] TONEY ([facility]) Body mass index (BMI) [Ratio] 39.5 kg/m2 39.5 k g/m2 TONEY ([facility]) Body weight 3920 [oz_av] 3920 [oz_av] TONEY ([facility]) Body height 66 [in_i] 66 [in_i] TONEY ([facility]) Body mass index (BMI) [Ratio] 39.5 kg/m2 39.5 k g/m2 TONEY ([facility]) Body weight 3920 [oz_av] 3920 [oz_av] TONEY ([facility]) Diastolic blood pressure 84 mm[Hg] 84 mm[Hg] TONEY ([facility]) Body height 66 [in_i] 66 [in_i] TONEY ([facility]) Body mass index (BMI) [Ratio] 40.1 kg/m2 40.1 k g/m2 TONEY ([facility]) Systolic blood pressure 119 mm[Hg] 119 mm[Hg] A THENA ([facility]) Body weight 3974.4 [oz_av] 3974.4 [oz_av] ATHEN A ([facility]) Body weight 3974.4 [oz_av] 3974.4 [oz_av] ATHEN A ([facility]) Diastolic blood pressure 84 mm[Hg] 84 mm[Hg] TONEY ([facility]) Body height 66 [in_i] 66 [in_i] TONEY ([facility]) Body mass index (BMI) [Ratio] 40.1 kg/m2 40.1 k g/m2 TONEY ([facility]) Systolic blood pressure 119 mm[Hg] 119 mm[Hg] [facility] Diastolic blood pressure 84 mm[Hg] 84 mm[Hg] TONEY ([facility]) Body height 66 [in_i] 66 [in_i] TONEY ([facility]) Body mass index (BMI) [Ratio] 40.1 kg/m2 40.1 k g/m2 TONEY ([facility]) Systolic blood pressure 119 mm[Hg] 119 mm[Hg] A THENA ([facility]) Body weight 3974.4 [oz_av] 3974.4 [oz_av] ATHEN A ([facility]) Diastolic blood pressure 84 mm[Hg] 84 mm[Hg] TONEY ([facility]) Body height 66 [in_i] 66 [in_i] TONEY ([facility]) Body mass index (BMI) [Ratio] 40.1 kg/m2 40.1 k g/m2 TONEY ([facility]) Systolic blood pressure 119 mm[Hg] 119 mm[Hg] A THENA ([facility]) Body weight 3974.4 [oz_av] 3974.4 [oz_av] ATHEN A ([facility]) Body height 66 [in_i] 66 [in_i] TONEY ([facility]) Body mass index (BMI) [Ratio] 40.1 kg/m2 40.1 k g/m2 TONEY ([facility]) Systolic blood pressure 119 mm[Hg] 119 mm[Hg] [facility] Body weight 3974.4 [oz_av] 3974.4 [oz_av] ATHEN A ([facility]) Diastolic blood pressure 84 mm[Hg] 84 mm[Hg] TONEY ([facility]) Body mass index (BMI) [Ratio] 40.1 kg/m2 40.1 k g/m2 TONEY ([facility]) Diastolic blood pressure 84 mm[Hg] 84 mm[Hg] TONEY ([facility]) Body height 66 [in_i] 66 [in_i] TONEY ([facility]) Systolic blood pressure 119 mm[Hg] 119 mm[Hg] [facility] Body weight 3974.4 [oz_av] 3974.4 [oz_av] ATHEN A ([facility]) Systolic blood pressure 119 mm[Hg] 119 mm[Hg] [facility] Body weight 3974.4 [oz_av] 3974.4 [oz_av] ATHEN A ([facility]) Diastolic blood pressure 84 mm[Hg] 84 mm[Hg] TONEY ([facility]) Body height 66 [in_i] 66 [in_i] TONEY ([facility]) Body mass index (BMI) [Ratio] 40.1 kg/m2 40.1 k g/m2 TONEY ([facility]) Diastolic blood pressure 84 mm[Hg] 84 mm[Hg] TONEY ([facility]) Body height 66 [in_i] 66 [in_i] TONEY ([facility]) Body mass index (BMI) [Ratio] 40.1 kg/m2 40.1 k g/m2 TONEY ([facility]) Systolic blood pressure 119 mm[Hg] 119 mm[Hg] A THENA ([facility]) Body weight 3974.4 [oz_av] 3974.4 [oz_av] ATHEN A ([facility]) Diastolic blood pressure 84 mm[Hg] 84 mm[Hg] TONEY ([facility]) Body height 66 [in_i] 66 [in_i] TONEY ([facility]) Body mass index (BMI) [Ratio] 40.1 kg/m2 40.1 k g/m2 TONEY ([facility]) Systolic blood pressure 119 mm[Hg] 119 mm[Hg] A THENA ([facility]) Body weight 3974.4 [oz_av] 3974.4 [oz_av] ATHEN A ([facility]) Diastolic blood pressure 84 mm[Hg] 84 mm[Hg] TONEY ([facility]) Body height 66 [in_i] 66 [in_i] TONEY ([facility]) Body mass index (BMI) [Ratio] 40.1 kg/m2 40.1 k g/m2 TONEY ([facility]) Systolic blood pressure 119 mm[Hg] 119 mm[Hg] A THENA ([facility]) Body weight 3974.4 [oz_av] 3974.4 [oz_av] ATHEN A ([facility]) Diastolic blood pressure 84 mm[Hg] 84 mm[Hg] TONEY ([facility]) Body height 66 [in_i] 66 [in_i] TONEY ([facility]) Body mass index (BMI) [Ratio] 40.1 kg/m2 40.1 k g/m2 TONEY ([facility]) Systolic blood pressure 119 mm[Hg] 119 mm[Hg] A THENA ([facility]) Body weight 3974.4 [oz_av] 3974.4 [oz_av] ATHEN A ([facility]) Diastolic blood pressure 84 mm[Hg] 84 mm[Hg] TONEY ([facility]) Body height 66 [in_i] 66 [in_i] TONEY ([facility]) Body mass index (BMI) [Ratio] 40.1 kg/m2 40.1 k g/m2 TONEY ([facility]) Systolic blood pressure 119 mm[Hg] 119 mm[Hg] A THENA ([facility]) Body weight 3974.4 [oz_av] 3974.4 [oz_av] ATHEN A ([facility]) Diastolic blood pressure 84 mm[Hg] 84 mm[Hg] TONEY ([facility]) Body height 66 [in_i] 66 [in_i] TONEY ([facility]) Body mass index (BMI) [Ratio] 40.1 kg/m2 40.1 k g/m2 TONEY ([facility]) Systolic blood pressure 119 mm[Hg] 119 mm[Hg] A THENA ([facility]) Body weight 3974.4 [oz_av] 3974.4 [oz_av] ATHEN A ([facility]) Body height 67 [in_i] 67 [in_i] MEDENT ([facility] ) 5'7" Body weight 252.12 [lb_av] 252.12 [lb_av] MEDEN T ([facility] ) Body mass index (BMI) [Ratio] 39.5 kg/m2 39.5 k g/m2 MEDENT ([facility] ) Body temperature 97.3 [degF] 97.3 [degF] MEDENT ([facility]) Body height 66 [in_i] 66 [in_i] MEDENT ([facility] ) 5'6" Body weight 249.50 [lb_av] 249.50 [lb_av] MEDEN T ([facility] ) Body mass index (BMI) [Ratio] 40.3 kg/m2 40.3 k g/m2 MEDENT ([facility] ) Diastolic blood pressure 90 mm[Hg] 90 mm[Hg] TONEY ([facility]) Body height 66 [in_i] 66 [in_i] TONEY ([facility]) Body mass index (BMI) [Ratio] 40.8 kg/m2 40.8 k g/m2 TONEY ([facility]) Systolic blood pressure 132 mm[Hg] 132 mm[Hg] A THENA ([facility]) Body weight 4048 [oz_av] 4048 [oz_av] TONEY ([facility]) Diastolic blood pressure 90 mm[Hg] 90 mm[Hg] TONEY ([facility]) Body height 66 [in_i] 66 [in_i] TONEY ([facility]) Systolic blood pressure 132 mm[Hg] 132 mm[Hg] [facility] Body weight 4048 [oz_av] 4048 [oz_av] TONEY ([facility]) Body mass index (BMI) [Ratio] 40.8 kg/m2 40.8 k g/m2 TONEY ([facility]) Diastolic blood pressure 90 mm[Hg] 90 mm[Hg] TONEY ([facility]) Body mass index (BMI) [Ratio] 40.8 kg/m2 40.8 k g/m2 TONEY ([facility]) Body height 66 [in_i] 66 [in_i] TONEY ([facility]) Body weight 4048 [oz_av] 4048 [oz_av] TONEY ([facility]) Systolic blood pressure 132 mm[Hg] 132 mm[Hg] [facility] Diastolic blood pressure 90 mm[Hg] 90 mm[Hg] TONEY ([facility]) Body height 66 [in_i] 66 [in_i] TONEY ([facility]) Body mass index (BMI) [Ratio] 40.8 kg/m2 40.8 k g/m2 TONEY ([facility]) Systolic blood pressure 132 mm[Hg] 132 mm[Hg] A THENA ([facility]) Body weight 4048 [oz_av] 4048 [oz_av] TONEY ([facility]) Body height 66 [in_i] 66 [in_i] TONEY ([facility]) Body mass index (BMI) [Ratio] 40.8 kg/m2 40.8 k g/m2 TONEY ([facility]) Systolic blood pressure 132 mm[Hg] 132 mm[Hg] [facility] Body weight 4048 [oz_av] 4048 [oz_av] TONEY ([facility]) Diastolic blood pressure 90 mm[Hg] 90 mm[Hg] TONEY ([facility]) Diastolic blood pressure 90 mm[Hg] 90 mm[Hg] TONEY ([facility]) Body height 66 [in_i] 66 [in_i] TONEY ([facility]) Body mass index (BMI) [Ratio] 40.8 kg/m2 40.8 k g/m2 TONEY ([facility]) Systolic blood pressure 132 mm[Hg] 132 mm[Hg] A THENA ([facility]) Body weight 4048 [oz_av] 4048 [oz_av] TONEY ([facility]) Diastolic blood pressure 90 mm[Hg] 90 mm[Hg] TONEY ([facility]) Body height 66 [in_i] 66 [in_i] TONEY ([facility]) Body mass index (BMI) [Ratio] 40.8 kg/m2 40.8 k g/m2 TONEY ([facility]) Systolic blood pressure 132 mm[Hg] 132 mm[Hg] A THENA ([facility]) Body weight 4048 [oz_av] 4048 [oz_av] TONEY ([facility]) Diastolic blood pressure 90 mm[Hg] 90 mm[Hg] TONEY ([facility]) Body height 66 [in_i] 66 [in_i] TONEY ([facility]) Body mass index (BMI) [Ratio] 40.8 kg/m2 40.8 k g/m2 TONEY ([facility]) Systolic blood pressure 132 mm[Hg] 132 mm[Hg] A THENA ([facility]) Body weight 4048 [oz_av] 4048 [oz_av] TONEY ([facility]) Diastolic blood pressure 90 mm[Hg] 90 mm[Hg] TONEY ([facility]) Body height 66 [in_i] 66 [in_i] TONEY ([facility]) Body mass index (BMI) [Ratio] 40.8 kg/m2 40.8 k g/m2 TONEY ([facility]) Systolic blood pressure 132 mm[Hg] 132 mm[Hg] A THENA ([facility]) Body weight 4048 [oz_av] 4048 [oz_av] TONEY ([facility]) Diastolic blood pressure 90 mm[Hg] 90 mm[Hg] TONEY ([facility]) Body height 66 [in_i] 66 [in_i] TONEY ([facility]) Body mass index (BMI) [Ratio] 40.8 kg/m2 40.8 k g/m2 TONEY ([facility]) Systolic blood pressure 132 mm[Hg] 132 mm[Hg] A THENA ([facility]) Body weight 4048 [oz_av] 4048 [oz_av] TONEY ([facility]) Diastolic blood pressure 90 mm[Hg] 90 mm[Hg] TONEY ([facility]) Body height 66 [in_i] 66 [in_i] TONEY ([facility]) Body mass index (BMI) [Ratio] 40.8 kg/m2 40.8 k g/m2 TONEY ([facility]) Systolic blood pressure 132 mm[Hg] 132 mm[Hg] A THENA ([facility]) Body weight 4048 [oz_av] 4048 [oz_av] TONEY ([facility]) Diastolic blood pressure 90 mm[Hg] 90 mm[Hg] TONEY ([facility]) Body height 66 [in_i] 66 [in_i] TONEY ([facility]) Body mass index (BMI) [Ratio] 40.8 kg/m2 40.8 k g/m2 TONEY ([facility]) Systolic blood pressure 132 mm[Hg] 132 mm[Hg] A THENA ([facility]) Body weight 4048 [oz_av] 4048 [oz_av] TONEY ([facility]) Diastolic blood pressure 90 mm[Hg] 90 mm[Hg] TONEY ([facility]) Body height 66 [in_i] 66 [in_i] TONEY ([facility]) Body mass index (BMI) [Ratio] 40.8 kg/m2 40.8 k g/m2 TONEY ([facility]) Systolic blood pressure 132 mm[Hg] 132 mm[Hg] A THENA ([facility]) Body weight 4048 [oz_av] 4048 [oz_av] TONEY ([facility]) Systolic blood pressure 132 mm[Hg] 132 mm[Hg] A THENA ([facility]) Body weight 4048 [oz_av] 4048 [oz_av] TONEY ([facility]) Diastolic blood pressure 90 mm[Hg] 90 mm[Hg] TONEY ([facility]) Body height 66 [in_i] 66 [in_i] TONEY ([facility]) Body mass index (BMI) [Ratio] 40.8 kg/m2 40.8 k g/m2 TONEY ([facility]) Body height 0.00 in Normal (applies to non-numeric resu lts) 0.00 in [facility] ([facility]) Body weight Measured 0.00 lbs Normal (applies to n on-numeric results) 0.00 lbs [facility] ([facility]) Diastolic blood pressure 0 mm[Hg] Normal (applies to non-numeric results) 0 mm[Hg] [facility] ([facility]) Body mass index (BMI) [Ratio] 0.00 kg/m2 No rmal (applies to non-numeric results) 0.00 kg/m2 [facility] ([facility]) Systolic blood pressure 0 mm[Hg] Normal (applies t o non-numeric results) 0 mm[Hg] [facility] ([facility]) Body weight 240.00 [lb_av] 240.00 [lb_av] LEENA Dominguez ([facility], ) Body height 66 [in_i] 66 [in_i] MEDTEDDY ([facility], ) 5'6" [place] body weight 130 [lb_av] 130 [lb_av] MEDEN T ([facility], ) Body mass index (BMI) [Ratio] 38.7 kg/m2 38.7 k g/m2 MEDTEDDY ([facility], ) Body surface area Derived from formula 2.16 m2 2.16 m2 ADOLPH ([facility], ) Body weight 108.864 kg 108.864 kg ADOLPH ([facility], ) Body height 66 [in_i] 66 [in_i] ADOLPH ([facility], ) 5'6" Body weight 240.00 [lb_av] 240.00 [lb_av] [facility] Body mass index (BMI) [Ratio] 38.7 kg/m2 38.7 k g/m2 [facility] ([facility]) [place] body weight 130 [lb_av] 130 [lb_av] [facility] Body weight 108.864 kg [address] [facility] ([facility]) Body surface area Derived from formula 2.16 m[address] [facility] ([facility]) Diastolic blood pressure 87 mm[Hg] 87 mm[Hg] TONEY ([facility]) Body height 66 [in_i] 66 [in_i] TONEY ([facility]) Systolic blood pressure 127 mm[Hg] 127 mm[Hg] [facility] Diastolic blood pressure 87 mm[Hg] 87 mm[Hg] TONEY ([facility]) Body height 66 [in_i] 66 [in_i] TONEY ([facility]) Systolic blood pressure 127 mm[Hg] 127 mm[Hg] A THENA ([facility]) Diastolic blood pressure 87 mm[Hg] 87 mm[Hg] TONEY ([facility]) Body height 66 [in_i] 66 [in_i] TONEY ([facility]) Systolic blood pressure 127 mm[Hg] 127 mm[Hg] A THENA ([facility]) Diastolic blood pressure 87 mm[Hg] 87 mm[Hg] TONEY ([facility]) Body height 66 [in_i] 66 [in_i] TONEY ([facility]) Systolic blood pressure 127 mm[Hg] 127 mm[Hg] A THENA ([facility]) Diastolic blood pressure 87 mm[Hg] 87 mm[Hg] TONEY ([facility]) Body height 66 [in_i] 66 [in_i] TONEY ([facility]) Systolic blood pressure 127 mm[Hg] 127 mm[Hg] A THENA ([facility]) Diastolic blood pressure 87 mm[Hg] 87 mm[Hg] TONEY ([facility]) Body height 66 [in_i] 66 [in_i] TONEY ([facility]) Systolic blood pressure 127 mm[Hg] 127 mm[Hg] A THENA ([facility]) Diastolic blood pressure 87 mm[Hg] 87 mm[Hg] TONEY ([facility]) Body height 66 [in_i] 66 [in_i] TONEY ([facility]) Systolic blood pressure 127 mm[Hg] 127 mm[Hg] A THENA ([facility]) Diastolic blood pressure 87 mm[Hg] 87 mm[Hg] TONEY ([facility]) Body height 66 [in_i] 66 [in_i] TONEY ([facility]) Systolic blood pressure 127 mm[Hg] 127 mm[Hg] A THENA ([facility]) Diastolic blood pressure 87 mm[Hg] 87 mm[Hg] TONEY ([facility]) Body height 66 [in_i] 66 [in_i] TONEY ([facility]) Systolic blood pressure 127 mm[Hg] 127 mm[Hg] A THENA ([facility]) Diastolic blood pressure 87 mm[Hg] 87 mm[Hg] TONEY ([facility]) Body height 66 [in_i] 66 [in_i] TONEY ([facility]) Systolic blood pressure 127 mm[Hg] 127 mm[Hg] A THENA ([facility]) Diastolic blood pressure 87 mm[Hg] 87 mm[Hg] TONEY ([facility]) Body height 66 [in_i] 66 [in_i] TONEY ([facility]) Systolic blood pressure 127 mm[Hg] 127 mm[Hg] A THENA ([facility]) Diastolic blood pressure 87 mm[Hg] 87 mm[Hg] TONEY ([facility]) Body height 66 [in_i] 66 [in_i] TONEY ([facility]) Systolic blood pressure 127 mm[Hg] 127 mm[Hg] A THENA ([facility]) Diastolic blood pressure 87 mm[Hg] 87 mm[Hg] TONEY ([facility]) Body height 66 [in_i] 66 [in_i] TONEY ([facility]) Systolic blood pressure 127 mm[Hg] 127 mm[Hg] A [facility] ([facility]) Diastolic blood pressure 87 mm[Hg] 87 mm[Hg] TONEY ([facility]) Body height 66 [in_i] 66 [in_i] TONEY ([facility]) Systolic blood pressure 127 mm[Hg] 127 mm[Hg] [facility] Diastolic blood pressure 87 mm[Hg] 87 mm[Hg] TONEY ([facility]) Body height 66 [in_i] 66 [in_i] TONEY ([facility]) Systolic blood pressure 127 mm[Hg] 127 mm[Hg] [facility] Diastolic blood pressure 87 mm[Hg] 87 mm[Hg] TONEY ([facility]) Body height 66 [in_i] 66 [in_i] TONEY ([facility]) Systolic blood pressure 127 mm[Hg] 127 mm[Hg] A THENA ([facility]) Body height 0.00 in Normal (applies to non-numeric resu lts) 0.00 in [facility] ([facility]) Body weight Measured 0.00 lbs Normal (applies to n on-numeric results) 0.00 lbs [facility] ([facility]) Body mass index (BMI) [Ratio] 0.00 kg/m2 No rmal (applies to non-numeric results) 0.00 kg/m2 [facility] ([facility]) Systolic blood pressure 0 mm[Hg] Normal (applies t o non-numeric results) 0 mm[Hg] [facility] ([facility]) Diastolic blood pressure 0 mm[Hg] Normal (applies to non-numeric results) 0 mm[Hg] [facility] ([facility]) Body height 66 [in_i] 66 [in_i] MEDENT ([facility], ) 5'6" Body weight 240.00 [lb_av] 240.00 [lb_av] MEDEN T ([facility], ) Body mass index (BMI) [Ratio] 38.7 kg/m2 38.7 k g/m2 MEDENT ([facility]) [place] body weight 130 [lb_av] 130 [lb_av] MEDEN T ([facility]) Body weight 108.[address] [facility] ([facility]) Body surface area Derived from formula 2.16 m2 [address] [facility] ([facility]) Body surface area Derived from formula 2.16 m[address] [facility] ([facility]) Body height 66 [in_i] 66 [in_i] [facility] 5'6" Body weight 240.00 [lb_av] 240.00 [lb_av] MEDEN T ([facility]) Body mass index (BMI) [Ratio] 38.7 kg/m2 38.7 k g/m2 [facility] ([facility]) [place] body weight 130 [lb_av] 130 [lb_av] MEDEN T ([facility]) Body weight 108.864 kg 108.864 kg [facility] Body height 0.00 in Normal (applies to non-numeric resu lts) 0.00 in [facility] ([facility]) Body weight Measured 0.00 lbs Normal (applies to n on-numeric results) 0.00 lbs [facility] ([facility]) Body mass index (BMI) [Ratio] 0.00 kg/m2 No rmal (applies to non-numeric results) 0.00 kg/m2 [facility] ([facility]) Systolic blood pressure 0 mm[Hg] Normal (applies t o non-numeric results) 0 mm[Hg] [facility] ([facility]) Diastolic blood pressure 0 mm[Hg] Normal (applies to non-numeric results) 0 mm[Hg] [facility] ([facility]) Body height 0.00 in Normal (applies to non-numeric resu lts) 0.00 in [facility] ([facility]) Body weight Measured 0.00 lbs Normal (applies to n on-numeric results) 0.00 lbs [facility] ([facility]) Body mass index (BMI) [Ratio] 0.00 kg/m2 No rmal (applies to non-numeric results) 0.00 kg/m2 [facility] ([facility]) Systolic blood pressure 0 mm[Hg] Normal (applies t o non-numeric results) 0 mm[Hg] [facility] ([facility]) Diastolic blood pressure 0 mm[Hg] Normal (applies to non-numeric results) 0 mm[Hg] [facility] ([facility]) Body height 0.00 in Normal (applies to non-numeric resu lts) 0.00 in [facility] ([facility]) Body weight Measured 0.00 lbs Normal (applies to n on-numeric results) 0.00 lbs [facility] ([facility]) Body mass index (BMI) [Ratio] 0.00 kg/m2 No rmal (applies to non-numeric results) 0.00 kg/m2 [facility] ([facility]) Systolic blood pressure 0 mm[Hg] Normal (applies t o non-numeric results) 0 mm[Hg] [facility] ([facility]) Diastolic blood pressure 0 mm[Hg] Normal (applies to non-numeric results) 0 mm[Hg] [facility] ([facility]) Body weight 251.4 [lb_av] 251.4 [lb_av] eCW1 ([facility]) Body height 67 [in_i] 67 [in_i] eCW1 ([facility]) Body mass index (BMI) [Ratio] 39.37 kg/m2 39.37 kg/m2 eCW1 ([facility]) Heart rate 117 /min 117 /min eCW1 ([facility]) Respiratory rate 18 /min 18 /min W1 ([facility]) Body temperature 96.9 [degF] 96.9 [degF] eCW1 ( [facility]) Systolic blood pressure 132 mm[Hg] 132 mm[Hg] e CW1 ([facility]) Diastolic blood pressure 80 mm[Hg] 80 mm[Hg] eCW1 ([facility]) Body height 0.00 in Normal (applies to non-numeric resu lts) 0.00 in [facility] ([facility]) Body weight Measured 0.00 lbs Normal (applies to n on-numeric results) 0.00 lbs [facility] ([facility]) Body mass index (BMI) [Ratio] 0.00 kg/m2 No rmal (applies to non-numeric results) 0.00 kg/m2 [facility] ([facility]) Systolic blood pressure 0 mm[Hg] Normal (applies t o non-numeric results) 0 mm[Hg] [facility] Diastolic blood pressure 0 mm[Hg] Normal (applies to non-numeric results) 0 mm[Hg] [facility] ([facility]) Patient Treatment Plan of Care Planned Activity Planned Date Details Description Data Source (s) Mis. Devices - 03/01/2020 12:00:00 AM EST eCW1 ([facility]) Misc. Devices - 03/01/2020 12:00:00 AM EST eCW1 ([facility]) Misc. Devices - 03/01/2020 12:00:00 AM EST eCW1 ([facility]) Misc. Devices - 03/01/2020 12:00:00 AM EST eCW1 ([facility]) Misc. Devices - 03/01/2020 12:00:00 AM EST eCW1 ([facility]) Misc. Devices - 03/01/2020 12:00:00 AM EST eCW1 ([facility]) Sucralfate 1000 MG Oral Tablet TONEY ([facility]) Ranitidine 150 MG Oral Tablet TONEY ([facility]) Prazosin 1 MG Oral Capsule A THENA ([facility]) pantoprazole 40 MG Delayed Release Oral Tablet TONEY ([facility]) Ondansetron 4 MG Oral Tablet TONEY ([facility]) Ondansetron 8 MG Disintegrating Oral Tablet TONEY ([facility]) NITROFURANTOIN, MACROCRYSTALS 25 MG / Ni trofurantoin, Monohydrate 75 MG Oral Capsule TONEY ([facility]) nitrofurantoin 100 mg tablet Take by oral route. TONEY ([facility]) Ibuprofen 200 MG Oral Capsule TONEY ([facility]) Fluconazole 150 MG Oral Tablet TONEY ([facility]) dapagliflozin 10 MG Oral Tablet [Farxiga] TONEY ([facility]) Famotidine 20 MG Oral Tablet TONEY ([facility]) doxycycline hyclate 100 MG Oral Capsule TONEY ([facility]) Deblitane 0.35 mg tablet TAKE ONE TABLET BY MOUTH EVERY DAY TONEY ([facility]) Clonidine Hydrochloride 0.1 MG Oral Tablet TONEY ([facility]) Clindamycin 150 MG Oral Capsule TONEY ([facility]) Ciprofloxacin 500 MG Oral Tablet TONEY ([facility]) Cephalexin 500 MG Oral Capsule TONEY ([facility]) celecoxib 100 MG Oral Capsule TONEY ([facility]) 24 HR Bupropion Hydrochloride 450 MG Extended Release Oral Tablet TONEY ([facility]) 24 HR Bupropion Hydrochloride 150 MG Extended Release Oral Tablet TONEY ([facility]) Amoxicillin 875 MG / Clavulanate 125 MG Oral Tablet TONEY ([facility]) venlafaxine 75 MG Oral Tablet TONEY ([facility]) Trulicity 3 mg/0.5 mL subcutaneous pen injector TONEY ([facility]) 0.5 ML dulaglutide 1.5 MG/ML Auto-Injector [Trulicity] TONEY ([facility]) tramadol hydrochloride 50 MG Oral Tablet TONEY ([facility]) Sumatriptan 50 MG Oral Tablet TONEY ([facility]) Sulfamethoxazole 800 MG / Trimethoprim 160 MG Oral Tablet TONEY ([facility]) Sucralfate 1000 MG Oral Tablet TONEY ([facility]) Ranitidine 150 MG Oral Tablet TONEY ([facility]) Prazosin 1 MG Oral Capsule A THENA ([facility]) pantoprazole 40 MG Delayed Release Oral Tablet TONEY ([facility]) Ondansetron 4 MG Oral Tablet TONEY ([facility]) Ondansetron 8 MG Disintegrating Oral Tablet TONEY ([facility]) NITROFURANTOIN, MACROCRYSTALS 25 MG / Ni trofurantoin, Monohydrate 75 MG Oral Capsule TONEY ([facility]) nitrofurantoin 100 mg tablet Take by oral route. TONEY ([facility]) Ibuprofen 200 MG Oral Capsule TONEY ([facility]) Fluconazole 150 MG Oral Tablet TONEY ([facility]) dapagliflozin 10 MG Oral Tablet [Farxiga] TONEY ([facility]) Famotidine 20 MG Oral Tablet TONEY ([facility]) doxycycline hyclate 100 MG Oral Capsule TONEY ([facility]) Deblitane 0.35 mg tablet TAKE ONE TABLET BY MOUTH EVERY DAY TONEY ([facility]) Clonidine Hydrochloride 0.1 MG Oral Tablet TONEY ([facility]) Clindamycin 150 MG Oral Capsule TONEY ([facility]) Ciprofloxacin 500 MG Oral Tablet TONEY ([facility]) Cephalexin 500 MG Oral Capsule TONEY ([facility]) celecoxib 100 MG Oral Capsule TONEY ([facility]) 24 HR Bupropion Hydrochloride 450 MG Extended Release Oral Tablet TONEY ([facility]) 24 HR Bupropion Hydrochloride 150 MG Extended Release Oral Tablet TONEY ([facility]) Amoxicillin 875 MG / Clavulanate 125 MG Oral Tablet TONEY ([facility]) venlafaxine 75 MG Oral Tablet TONEY ([facility]) Trulicity 3 mg/0.5 mL subcutaneous pen injector TONEY ([facility]) 0.5 ML dulaglutide 3 MG/ML Auto-Injector [Trulicity] TONEY ([facility]) tramadol hydrochloride 50 MG Oral Tablet TONEY ([facility]) Sumatriptan 50 MG Oral Tablet TONEY ([facility]) Sulfamethoxazole 800 MG / Trimethoprim 160 MG Oral Tablet TONEY ([facility]) Sucralfate 1000 MG Oral Tablet TONEY ([facility]) Ranitidine 150 MG Oral Tablet [facility] ([facility] [facility] Prazosin 1 MG Oral Capsule A THENA ([facility]) pantoprazole 40 MG Delayed Release Oral Tablet TONEY ([facility]) Ondansetron 4 MG Oral Tablet TONEY ([facility]) Ondansetron 8 MG Disintegrating Oral Tablet TONEY ([facility]) NITROFURANTOIN, MACROCRYSTALS 25 MG / Ni trofurantoin, Monohydrate 75 MG Oral Capsule TONEY ([facility]) nitrofurantoin 100 mg tablet Take by oral route. TONEY ([facility]) Ibuprofen 200 MG Oral Capsule TONEY ([facility]) Fluconazole 150 MG Oral Tablet TONEY ([facility]) dapagliflozin 10 MG Oral Tablet [Farxiga] TONEY ([facility]) Famotidine 20 MG Oral Tablet TONEY ([facility]) doxycycline hyclate 100 MG Oral Capsule TONEY ([facility]) Deblitane 0.35 mg tablet TAKE ONE TABLET BY MOUTH EVERY DAY TONEY ([facility]) Clonidine Hydrochloride 0.1 MG Oral Tablet TONEY ([facility]) Clindamycin 150 MG Oral Capsule TONEY ([facility]) Ciprofloxacin 500 MG Oral Tablet TONEY ([facility]) Cephalexin 500 MG Oral Capsule TONEY ([facility]) celecoxib 100 MG Oral Capsule TONEY ([facility]) 24 HR Bupropion Hydrochloride 450 MG Extended Release Oral Tablet TONEY ([facility]) 24 HR Bupropion Hydrochloride 150 MG Extended Release Oral Tablet TONEY ([facility]) Amoxicillin 875 MG / Clavulanate 125 MG Oral Tablet TONEY ([facility]) venlafaxine 75 MG Oral Tablet TONEY ([facility]) Trulicity 3 mg/0.5 mL subcutaneous pen injector TONEY ([facility]) 0.5 ML dulaglutide 3 MG/ML Auto-Injector [Trulicity] TONEY ([facility]) tramadol hydrochloride 50 MG Oral Tablet TONEY ([facility]) Sumatriptan 50 MG Oral Tablet TONEY ([facility]) Sulfamethoxazole 800 MG / Trimethoprim 160 MG Oral Tablet TONEY ([facility]) Sucralfate 1000 MG Oral Tablet TONEY ([facility]) Ranitidine 150 MG Oral Tablet TONEY ([facility]) Prazosin 1 MG Oral Capsule A THENA ([facility]) pantoprazole 40 MG Delayed Release Oral Tablet TONEY ([facility]) Ondansetron 4 MG Oral Tablet TONEY ([facility]) 24 HR Bupropion Hydrochloride 150 MG Extended Release Oral Tablet TONEY ([facility]) Amoxicillin 875 MG / Clavulanate 125 MG Oral Tablet TONEY ([facility]) venlafaxine 75 MG Oral Tablet TONEY ([facility]) 0.5 ML dulaglutide 3 MG/ML Auto-Injector [Trulicity] TONEY ([facility]) 0.5 ML dulaglutide 1.5 MG/ML Auto-Injector [Trulicity] TONEY ([facility]) tramadol hydrochloride 50 MG Oral Tablet TONEY ([facility]) Sumatriptan 50 MG Oral Tablet TONEY ([facility]) Sulfamethoxazole 800 MG / Trimethoprim 160 MG Oral Tablet TONEY ([facility]) Sucralfate 1000 MG Oral Tablet TONEY ([facility]) Ranitidine 150 MG Oral Tablet TONEY ([facility]) Prazosin 1 MG Oral Capsule A THENA ([facility]) pantoprazole 40 MG Delayed Release Oral Tablet TONEY ([facility]) Ondansetron 4 MG Oral Tablet TONEY ([facility]) nitrofurantoin 100 mg tablet Take by oral route. TONEY ([facility]) Fluconazole 150 MG Oral Tablet TONEY ([facility]) dapagliflozin 10 MG Oral Tablet [Farxiga] TONEY ([facility]) Famotidine 20 MG Oral Tablet TONEY ([facility]) doxycycline hyclate 100 MG Oral Capsule TONEY ([facility]) Deblitane 0.35 mg tablet TAKE ONE TABLET BY MOUTH EVERY DAY TONEY ([facility]) Clonidine Hydrochloride 0.1 MG Oral Tablet TONEY ([facility]) Clindamycin 150 MG Oral Capsule TONEY ([facility]) Ciprofloxacin 500 MG Oral Tablet TONEY ([facility]) Cephalexin 500 MG Oral Capsule TONEY ([facility]) 24 HR Bupropion Hydrochloride 450 MG Extended Release Oral Tablet TONEY ([facility]) 24 HR Bupropion Hydrochloride 150 MG Extended Release Oral Tablet TONEY ([facility]) Amoxicillin 875 MG / Clavulanate 125 MG Oral Tablet TOENY ([facility]) 0.5 ML dulaglutide 3 MG/ML Auto-Injector [Trulicity] TONEY ([facility]) 0.5 ML dulaglutide 1.5 MG/ML Auto-Injector [Trulicity] TONEY ([facility]) tramadol hydrochloride 50 MG Oral Tablet TONEY ([facility]) Sumatriptan 50 MG Oral Tablet TONEY ([facility]) Sulfamethoxazole 800 MG / Trimethoprim 160 MG Oral Tablet TONEY ([facility]) Sucralfate 1000 MG Oral Tablet TONEY ([facility]) Ranitidine 150 MG Oral Tablet TONEY ([facility]) venlafaxine 75 MG Oral Tablet TONEY ([facility]) Trulicity 3 mg/0.5 mL subcutaneous pen injector TONEY ([facility]) 0.5 ML dulaglutide 3 MG/ML Auto-Injector [Trulicity] TONEY ([facility]) 0.5 ML dulaglutide 1.5 MG/ML Auto-Injector [Trulicity] TONEY ([facility]) tramadol hydrochloride 50 MG Oral Tablet TONEY ([facility]) Sumatriptan 50 MG Oral Tablet TONEY ([facility]) Sulfamethoxazole 800 MG / Trimethoprim 160 MG Oral Tablet TONEY ([facility]) Sucralfate 1000 MG Oral Tablet TONEY ([facility]) Ranitidine 150 MG Oral Tablet TONEY ([facility]) Prazosin 1 MG Oral Capsule A THENA ([facility]) pantoprazole 40 MG Delayed Release Oral Tablet TONEY ([facility]) Ondansetron 4 MG Oral Tablet TONEY ([facility]) Ondansetron 8 MG Disintegrating Oral Tablet TONEY ([facility]) NITROFURANTOIN, MACROCRYSTALS 25 MG / Ni trofurantoin, Monohydrate 75 MG Oral Capsule TONEY ([facility]) nitrofurantoin 100 mg tablet Take by oral route. TONEY ([facility]) Ibuprofen 200 MG Oral Capsule TONEY ([facility]) Fluconazole 150 MG Oral Tablet TONEY ([facility]) dapagliflozin 10 MG Oral Tablet [Farxiga] TONEY ([facility]) Famotidine 20 MG Oral Tablet TONEY ([facility]) doxycycline hyclate 100 MG Oral Capsule TONEY ([facility]) Deblitane 0.35 mg tablet TAKE ONE TABLET BY MOUTH EVERY DAY TONEY ([facility]) Clonidine Hydrochloride 0.1 MG Oral Tablet TONEY ([facility]) Clindamycin 150 MG Oral Capsule TONEY ([facility]) Ciprofloxacin 500 MG Oral Tablet TONEY ([facility]) Cephalexin 500 MG Oral Capsule TONEY ([facility]) celecoxib 100 MG Oral Capsule TONEY ([facility]) 24 HR Bupropion Hydrochloride 450 MG Extended Release Oral Tablet TONEY ([facility]) 24 HR Bupropion Hydrochloride 150 MG Extended Release Oral Tablet TONEY ([facility]) Amoxicillin 875 MG / Clavulanate 125 MG Oral Tablet TONEY ([facility]) venlafaxine 75 MG Oral Tablet TONEY ([facility]) 0.5 ML dulaglutide 3 MG/ML Auto-Injector [Trulicity] TONEY ([facility]) 0.5 ML dulaglutide 1.5 MG/ML Auto-Injector [Trulicity] TONEY ([facility]) tramadol hydrochloride 50 MG Oral Tablet TONEY ([facility]) Sumatriptan 50 MG Oral Tablet TONEY ([facility]) Sulfamethoxazole 800 MG / Trimethoprim 160 MG Oral Tablet TONEY ([facility]) Sucralfate 1000 MG Oral Tablet TONEY ([facility]) Ranitidine 150 MG Oral Tablet TONEY ([facility]) Prazosin 1 MG Oral Capsule A THENA ([facility]) pantoprazole 40 MG Delayed Release Oral Tablet TONEY ([facility]) Ondansetron 4 MG Oral Tablet TONEY ([facility]) Ondansetron 8 MG Disintegrating Oral Tablet TONEY ([facility]) NITROFURANTOIN, MACROCRYSTALS 25 MG / Ni trofurantoin, Monohydrate 75 MG Oral Capsule TONEY ([facility]) nitrofurantoin 100 mg tablet Take by oral route. TONEY ([facility]) Ibuprofen 200 MG Oral Capsule TONEY ([facility]) Fluconazole 150 MG Oral Tablet TONEY ([facility]) dapagliflozin 10 MG Oral Tablet [Farxiga] TONEY ([facility]) Famotidine 20 MG Oral Tablet TONEY ([facility]) doxycycline hyclate 100 MG Oral Capsule TONEY ([facility]) Deblitane 0.35 mg tablet TAKE ONE TABLET BY MOUTH EVERY DAY TONEY ([facility]) Clonidine Hydrochloride 0.1 MG Oral Tablet TONEY ([facility]) Clindamycin 150 MG Oral Capsule TONEY ([facility]) Ciprofloxacin 500 MG Oral Tablet TONEY ([facility]) Cephalexin 500 MG Oral Capsule TONEY ([facility]) celecoxib 100 MG Oral Capsule TONEY ([facility]) 24 HR Bupropion Hydrochloride 450 MG Extended Release Oral Tablet TONEY ([facility]) 24 HR Bupropion Hydrochloride 150 MG Extended Release Oral Tablet TONEY ([facility]) Amoxicillin 875 MG / Clavulanate 125 MG Oral Tablet TONEY ([facility]) venlafaxine 75 MG Oral Tablet TONEY ([facility]) 0.5 ML dulaglutide 3 MG/ML Auto-Injector [Trulicity] TONEY ([facility]) 0.5 ML dulaglutide 1.5 MG/ML Auto-Injector [Trulicity] TONEY ([facility]) tramadol hydrochloride 50 MG Oral Tablet TONEY ([facility]) Sumatriptan 50 MG Oral Tablet TONEY ([facility]) Sulfamethoxazole 800 MG / Trimethoprim 160 MG Oral Tablet TONEY ([facility]) Prazosin 1 MG Oral Capsule A THENA ([facility]) pantoprazole 40 MG Delayed Release Oral Tablet TONEY ([facility]) Ondansetron 4 MG Oral Tablet TONEY ([facility]) nitrofurantoin 100 mg tablet Take by oral route. TONEY ([facility]) Fluconazole 150 MG Oral Tablet TONEY ([facility]) dapagliflozin 10 MG Oral Tablet [Farxiga] TONEY ([facility]) Famotidine 20 MG Oral Tablet TONEY ([facility]) doxycycline hyclate 100 MG Oral Capsule TONEY ([facility]) Deblitane 0.35 mg tablet TAKE ONE TABLET BY MOUTH EVERY DAY TONEY ([facility]) Clonidine Hydrochloride 0.1 MG Oral Tablet TONEY ([facility]) Clindamycin 150 MG Oral Capsule TONEY ([facility]) Ciprofloxacin 500 MG Oral Tablet TONEY ([facility]) Cephalexin 500 MG Oral Capsule TONEY ([facility]) 24 HR Bupropion Hydrochloride 450 MG Extended Release Oral Tablet TNOEY ([facility]) 24 HR Bupropion Hydrochloride 150 MG Extended Release Oral Tablet TONEY ([facility]) Amoxicillin 875 MG / Clavulanate 125 MG Oral Tablet TONEY ([facility]) venlafaxine 75 MG Oral Tablet TONEY ([facility]) 0.5 ML dulaglutide 3 MG/ML Auto-Injector [Trulicity] TONEY ([facility]) 0.5 ML dulaglutide 1.5 MG/ML Auto-Injector [Trulicity] TONEY ([facility]) tramadol hydrochloride 50 MG Oral Tablet TONEY ([facility]) Sumatriptan 50 MG Oral Tablet TONEY ([facility]) Sulfamethoxazole 800 MG / Trimethoprim 160 MG Oral Tablet TONEY ([facility]) Sucralfate 1000 MG Oral Tablet TONEY ([facility]) Ranitidine 150 MG Oral Tablet TONEY ([facility]) Prazosin 1 MG Oral Capsule A THENA ([facility]) pantoprazole 40 MG Delayed Release Oral Tablet TONEY ([facility]) Ondansetron 4 MG Oral Tablet TONEY ([facility]) nitrofurantoin 100 mg tablet Take by oral route. TONEY ([facility]) Fluconazole 150 MG Oral Tablet TONEY ([facility]) dapagliflozin 10 MG Oral Tablet [Farxiga] TONEY ([facility]) Famotidine 20 MG Oral Tablet TONEY ([facility]) doxycycline hyclate 100 MG Oral Capsule TONEY ([facility]) Deblitane 0.35 mg tablet TAKE ONE TABLET BY MOUTH EVERY DAY TONEY ([facility]) Clonidine Hydrochloride 0.1 MG Oral Tablet TONEY ([facility]) Clindamycin 150 MG Oral Capsule TONEY ([facility]) Ciprofloxacin 500 MG Oral Tablet TONEY ([facility]) Cephalexin 500 MG Oral Capsule TONEY ([facility]) 24 HR Bupropion Hydrochloride 450 MG Extended Release Oral Tablet TONEY ([facility]) 24 HR Bupropion Hydrochloride 150 MG Extended Release Oral Tablet TONEY ([facility]) Amoxicillin 875 MG / Clavulanate 125 MG Oral Tablet TONEY ([facility]) Insulin Glargine 100 UNT/ML Injectable Solution [facility] venlafaxine 75 MG Oral Tablet TONEY ([facility]) 0.5 ML dulaglutide 3 MG/ML Auto-Injector [Trulicity] TONEY ([facility]) 0.5 ML dulaglutide 1.5 MG/ML Auto-Injector [Trulicity] TONEY ([facility]) tramadol hydrochloride 50 MG Oral Tablet TONEY ([facility]) Sumatriptan 50 MG Oral Tablet TONEY ([facility]) Sulfamethoxazole 800 MG / Trimethoprim 160 MG Oral Tablet TONEY ([facility]) Sucralfate 1000 MG Oral Tablet TONEY ([facility]) Ranitidine 150 MG Oral Tablet TONEY ([facility]) Prazosin 1 MG Oral Capsule A THENA ([facility]) pantoprazole 40 MG Delayed Release Oral Tablet TONEY ([facility]) Ondansetron 4 MG Oral Tablet TONEY ([facility]) Fluconazole 150 MG Oral Tablet TONEY ([facility]) dapagliflozin 10 MG Oral Tablet [Farxiga] TONEY ([facility]) Famotidine 20 MG Oral Tablet TONEY ([facility]) doxycycline hyclate 100 MG Oral Capsule TONEY ([facility]) Deblitane 0.35 mg tablet TAKE ONE TABLET BY MOUTH EVERY DAY TONEY ([facility]) Clonidine Hydrochloride 0.1 MG Oral Tablet TONEY ([facility]) Clindamycin 150 MG Oral Capsule TONEY ([facility]) Ciprofloxacin 500 MG Oral Tablet TONEY ([facility]) Cephalexin 500 MG Oral Capsule TONEY ([facility]) 24 HR Bupropion Hydrochloride 450 MG Extended Release Oral Tablet TONEY ([facility]) 24 HR Bupropion Hydrochloride 150 MG Extended Release Oral Tablet TONEY ([facility]) Amoxicillin 875 MG / Clavulanate 125 MG Oral Tablet TONEY ([facility]) Ondansetron 8 MG Disintegrating Oral Tablet TONEY ([facility]) NITROFURANTOIN, MACROCRYSTALS 25 MG / Ni trofurantoin, Monohydrate 75 MG Oral Capsule TONEY ([facility]) nitrofurantoin 100 mg tablet Take by oral route. TONEY ([facility]) Ibuprofen 200 MG Oral Capsule TONEY ([facility]) Fluconazole 150 MG Oral Tablet TONEY ([facility]) dapagliflozin 10 MG Oral Tablet [Farxiga] TONEY ([facility]) Famotidine 20 MG Oral Tablet TONEY ([facility]) doxycycline hyclate 100 MG Oral Capsule TONEY ([facility]) Deblitane 0.35 mg tablet TAKE ONE TABLET BY MOUTH EVERY DAY TONEY ([facility]) Clonidine Hydrochloride 0.1 MG Oral Tablet TONEY ([facility]) Clindamycin 150 MG Oral Capsule TONEY ([facility]) Ciprofloxacin 500 MG Oral Tablet TONEY ([facility]) Cephalexin 500 MG Oral Capsule TONEY ([facility]) celecoxib 100 MG Oral Capsule TONEY ([facility]) 24 HR Bupropion Hydrochloride 450 MG Extended Release Oral Tablet TONEY ([facility]) 24 HR Bupropion Hydrochloride 150 MG Extended Release Oral Tablet TONEY ([facility]) Amoxicillin 875 MG / Clavulanate 125 MG Oral Tablet TONEY ([facility]) venlafaxine 75 MG Oral Tablet TONEY ([facility]) 0.5 ML dulaglutide 3 MG/ML Auto-Injector [Trulicity] TONEY ([facility]) 0.5 ML dulaglutide 1.5 MG/ML Auto-Injector [Trulicity] TONEY ([facility]) tramadol hydrochloride 50 MG Oral Tablet TONEY ([facility]) Sumatriptan 50 MG Oral Tablet TONEY ([facility]) Sulfamethoxazole 800 MG / Trimethoprim 160 MG Oral Tablet TONEY ([facility]) Sucralfate 1000 MG Oral Tablet TONEY ([facility]) Ranitidine 150 MG Oral Tablet TONEY ([facility]) Prazosin 1 MG Oral Capsule A THENA ([facility]) pantoprazole 40 MG Delayed Release Oral Tablet TONEY ([facility]) Ondansetron 4 MG Oral Tablet TONEY ([facility]) nitrofurantoin 100 mg tablet Take by oral route. TONEY ([facility]) Fluconazole 150 MG Oral Tablet TONEY ([facility]) dapagliflozin 10 MG Oral Tablet [Farxiga] TONEY ([facility]) Famotidine 20 MG Oral Tablet TONEY ([facility]) doxycycline hyclate 100 MG Oral Capsule TONEY ([facility]) Deblitane 0.35 mg tablet TAKE ONE TABLET BY MOUTH EVERY DAY TONEY ([facility]) Clonidine Hydrochloride 0.1 MG Oral Tablet TONEY ([facility]) Clindamycin 150 MG Oral Capsule TONEY ([facility]) Ciprofloxacin 500 MG Oral Tablet TONEY ([facility]) Cephalexin 500 MG Oral Capsule TONEY ([facility]) 24 HR Bupropion Hydrochloride 450 MG Extended Release Oral Tablet TONEY ([facility]) venlafaxine 75 MG Oral Tablet TONEY ([facility]) venlafaxine 75 MG Oral Tablet TONEY ([facility]) 0.5 ML dulaglutide 3 MG/ML Auto-Injector [Trulicity] TONEY ([facility]) 0.5 ML dulaglutide 1.5 MG/ML Auto-Injector [Trulicity] TONEY ([facility]) tramadol hydrochloride 50 MG Oral Tablet TONEY ([facility]) Sumatriptan 50 MG Oral Tablet TONEY ([facility]) Sulfamethoxazole 800 MG / Trimethoprim 160 MG Oral Tablet TONEY ([facility]) Sucralfate 1000 MG Oral Tablet TONEY ([facility]) Ranitidine 150 MG Oral Tablet TONEY ([facility]) Prazosin 1 MG Oral Capsule A THENA ([facility]) pantoprazole 40 MG Delayed Release Oral Tablet TONEY ([facility]) Ondansetron 4 MG Oral Tablet TONEY ([facility]) Fluconazole 150 MG Oral Tablet TONEY ([facility]) dapagliflozin 10 MG Oral Tablet [Farxiga] TONEY ([facility]) Famotidine 20 MG Oral Tablet TONEY ([facility]) doxycycline hyclate 100 MG Oral Capsule TONEY ([facility]) Deblitane 0.35 mg tablet TAKE ONE TABLET BY MOUTH EVERY DAY TONEY ([facility]) Clonidine Hydrochloride 0.1 MG Oral Tablet TONEY ([facility]) Clindamycin 150 MG Oral Capsule TONEY ([facility]) Ciprofloxacin 500 MG Oral Tablet TONEY ([facility]) Cephalexin 500 MG Oral Capsule TONEY ([facility]) 24 HR Bupropion Hydrochloride 450 MG Extended Release Oral Tablet TONEY ([facility]) 24 HR Bupropion Hydrochloride 150 MG Extended Release Oral Tablet TONEY ([facility]) Amoxicillin 875 MG / Clavulanate 125 MG Oral Tablet TONEY ([facility]) venlafaxine 75 MG Oral Tablet TONEY ([facility]) 0.5 ML dulaglutide 3 MG/ML Auto-Injector [Trulicity] TONEY ([facility]) 0.5 ML dulaglutide 1.5 MG/ML Auto-Injector [Trulicity] TONEY ([facility]) tramadol hydrochloride 50 MG Oral Tablet TONEY ([facility]) Sumatriptan 50 MG Oral Tablet TONEY ([facility]) Sulfamethoxazole 800 MG / Trimethoprim 160 MG Oral Tablet TONEY ([facility]) Sucralfate 1000 MG Oral Tablet TONEY ([facility]) Ranitidine 150 MG Oral Tablet TONEY ([facility]) Prazosin 1 MG Oral Capsule A THENA ([facility]) pantoprazole 40 MG Delayed Release Oral Tablet TONEY ([facility]) Ondansetron 4 MG Oral Tablet TONEY ([facility]) Fluconazole 150 MG Oral Tablet TONEY ([facility]) dapagliflozin 10 MG Oral Tablet [Farxiga] TONEY ([facility]) Famotidine 20 MG Oral Tablet TONEY ([facility]) doxycycline hyclate 100 MG Oral Capsule TONEY ([facility]) Deblitane 0.35 mg tablet TAKE ONE TABLET BY MOUTH EVERY DAY TONEY ([facility]) Clonidine Hydrochloride 0.1 MG Oral Tablet TONEY ([facility]) Clindamycin 150 MG Oral Capsule TONEY ([facility]) Ciprofloxacin 500 MG Oral Tablet TONEY ([facility]) Cephalexin 500 MG Oral Capsule TONEY ([facility]) 24 HR Bupropion Hydrochloride 450 MG Extended Release Oral Tablet TONEY ([facility]) 24 HR Bupropion Hydrochloride 150 MG Extended Release Oral Tablet TONEY ([facility]) Amoxicillin 875 MG / Clavulanate 125 MG Oral Tablet TONEY ([facility]) 24 HR Bupropion Hydrochloride 450 MG Extended Release Oral Tablet TONEY ([facility]) 24 HR Bupropion Hydrochloride 150 MG Extended Release Oral Tablet TONEY ([facility]) Amoxicillin 875 MG / Clavulanate 125 MG Oral Tablet TONEY ([facility]) Sulfamethoxazole 800 MG / Trimethoprim 160 MG Oral Tablet TONEY ([facility]) Sucralfate 1000 MG Oral Tablet TONEY ([facility]) Ranitidine 150 MG Oral Tablet TONEY ([facility]) Prazosin 1 MG Oral Capsule A THENA ([facility]) Fluconazole 150 MG Oral Tablet TONEY ([facility]) dapagliflozin 10 MG Oral Tablet [Farxiga] TONEY ([facility]) Famotidine 20 MG Oral Tablet TONEY ([facility]) doxycycline hyclate 100 MG Oral Capsule TONEY ([facility]) Deblitane 0.35 mg tablet TAKE ONE TABLET BY MOUTH EVERY DAY TONEY ([facility]) Beclomethasone Dipropionate (QVAR IN) [facility] Clonidine Hydrochloride 0.1 MG Oral Tablet TONEY ([facility]) Clindamycin 150 MG Oral Capsule TONEY ([facility]) Ciprofloxacin 500 MG Oral Tablet TONEY ([facility]) Cephalexin 500 MG Oral Capsule TONEY ([facility]) 24 HR Bupropion Hydrochloride 450 MG Extended Release Oral Tablet TONEY ([facility]) 24 HR Bupropion Hydrochloride 150 MG Extended Release Oral Tablet TONEY ([facility]) Amoxicillin 875 MG / Clavulanate 125 MG Oral Tablet TONEY ([facility]) venlafaxine 75 MG Oral Tablet TONEY ([facility]) 0.5 ML dulaglutide 1.5 MG/ML Auto-Injector [Trulicity] TONEY ([facility]) tramadol hydrochloride 50 MG Oral Tablet TONEY ([facility]) Sumatriptan 50 MG Oral Tablet TONEY ([facility]) Sulfamethoxazole 800 MG / Trimethoprim 160 MG Oral Tablet TONEY ([facility]) Sucralfate 1000 MG Oral Tablet TONEY ([facility]) Ranitidine 150 MG Oral Tablet TONEY ([facility]) Prazosin 1 MG Oral Capsule A THENA ([facility]) pantoprazole 40 MG Delayed Release Oral Tablet TONEY ([facility]) Ondansetron 4 MG Oral Tablet TONEY ([facility]) Fluconazole 150 MG Oral Tablet TONEY ([facility]) dapagliflozin 10 MG Oral Tablet [Farxiga] TONEY ([facility]) Famotidine 20 MG Oral Tablet TONEY ([facility]) doxycycline hyclate 100 MG Oral Capsule TONEY ([facility]) Deblitane 0.35 mg tablet TAKE ONE TABLET BY MOUTH EVERY DAY TONEY ([facility]) Clonidine Hydrochloride 0.1 MG Oral Tablet TONEY ([facility]) Clindamycin 150 MG Oral Capsule TONEY ([facility]) Ciprofloxacin 500 MG Oral Tablet TONEY ([facility]) Cephalexin 500 MG Oral Capsule TONEY ([facility]) venlafaxine 75 MG Oral Tablet TONEY ([facility]) 0.5 ML dulaglutide 1.5 MG/ML Auto-Injector [Trulicity] TONEY ([facility]) Sumatriptan 50 MG Oral Tablet TONEY ([facility]) Sulfamethoxazole 800 MG / Trimethoprim 160 MG Oral Tablet TONEY ([facility]) Sucralfate 1000 MG Oral Tablet TONEY ([facility]) Ranitidine 150 MG Oral Tablet TONEY ([facility]) Prazosin 1 MG Oral Capsule A THENA ([facility]) Fluconazole 150 MG Oral Tablet TONEY ([facility]) dapagliflozin 10 MG Oral Tablet [Farxiga] TONEY ([facility]) Famotidine 20 MG Oral Tablet TONEY ([facility]) doxycycline hyclate 100 MG Oral Capsule TONEY ([facility]) Deblitane 0.35 mg tablet TAKE ONE TABLET BY MOUTH EVERY DAY TONEY ([facility]) Clonidine Hydrochloride 0.1 MG Oral Tablet TONEY ([facility]) Clindamycin 150 MG Oral Capsule TONEY ([facility]) Ciprofloxacin 500 MG Oral Tablet TONEY ([facility]) Cephalexin 500 MG Oral Capsule TONEY ([facility]) 24 HR Bupropion Hydrochloride 450 MG Extended Release Oral Tablet TONEY ([facility]) 24 HR Bupropion Hydrochloride 150 MG Extended Release Oral Tablet TONEY ([facility]) Amoxicillin 875 MG / Clavulanate 125 MG Oral Tablet TONEY ([facility]) venlafaxine 75 MG Oral Tablet TONEY ([facility]) 0.5 ML dulaglutide 1.5 MG/ML Auto-Injector [Trulicity] TONEY ([facility]) Sumatriptan 50 MG Oral Tablet TONEY ([facility])
[2021-02-25] MEDS ORDERED: METOCLOPRAMIDE INJ 10MG/2ML VIAL (J2765 PER 1) IV ONE (04:25)
[2021-02-25] MEDS ORDERED: METOCLOPRAMIDE INJ 10MG/2ML VIAL (J2765 PER 1) As Ordered ONE (04:28)
[2021-02-25 04:44] LABS: VENOUS BASE EXCESS -5.6 (-2.0-2.0); VENOUS HCO3 19.2 MEQ/L (23.0-27.0); VENOUS O2 SATURATION 59.1 % (60.0-80.0); VENOUS PARTIAL PRESSURE CO2 35.5 mmHg (38.0-50.0); VENOUS PARTIAL PRESSURE O2 30.7 mmHg (30.0-50.0); VENOUS TOTAL CO2 20.2 MEQ/L (24.0-28.0)
[2021-02-25 04:48] LABS: BASO # 0.1 10^3/uL (0.0-0.2); BASO % 0.4 % (0.0-1.0); EOS % 0.3 % (0.0-3.0); HEMATOCRIT 47.1 % (36.0-47.0); HEMOGLOBIN 15.4 g/dl (12.0-15.5); LYMPH # 1.6 10^3/uL (1.5-5.0); LYMPH % 13.3 % (24.0-44.0); MEAN CORPUSCULAR HEMOGLOBIN 26.1 pg (27.0-33.0); MEAN CORPUSCULAR HGB CONC 32.7 g/dl (32.0-36.5); MONO # 0.7 10^3/uL (0.0-0.8); MONO % 5.7 % (2.0-8.0); NEUTROPHILS # 9.4 10^3/uL (1.5-8.5); NEUTROPHILS % 79.5 % (36.0-66.0); PLATELET COUNT, AUTOMATED 297 10^3/uL (150-450); RED BLOOD COUNT 5.89 10^6/uL (4.00-5.40); WHITE BLOOD COUNT 11.8 10^3/uL (4.0-10.0)
[2021-02-25] MEDS ORDERED: NS 1,000 ML IV ONE ×2 (04:55→05:30)
--- NOTE | 2021-02-25 05:12 | REPVR ---
PROCEDURE INFORMATION: Exam: XR Chest Exam date and time: 02/25/2021 4:37 AM Age: 40 years old Clinical indication: Other: Dka TECHNIQUE: Imaging protocol: XR of the chest. Views: 1 view. COMPARISON: CR Chest, 1 view 11/30/2017 11:40 PM FINDINGS: Lungs: Unremarkable. No consolidation. Pleural spaces: Unremarkable. No pleural effusion. No pneumothorax. Heart/Mediastinum: Unremarkable. No cardiomegaly. Bones/joints: Unremarkable. IMPRESSION: No acute findings. Electronically signed by: Nguyen Macedo On 02/25/2021 05:12:06 AM
[2021-02-25 05:14] LABS: AMPHETAMINES LEVEL URINE NEGATIVE (NEGATIVE); BARBITURATES URINE NEGATIVE (NEGATIVE); BENZODIAZEPINES URINE NEGATIVE (NEGATIVE); CANNABINOIDS URINE NEGATIVE (NEGATIVE); COCAINE METABOLITE URINE NEGATIVE (NEGATIVE); HEMOGLOBIN A1c 10.5 %; METHADONE URINE NEGATIVE (NEGATIVE); OPIATES URINE NEGATIVE (NEGATIVE); PHENCYCLIDINE URINE NEGATIVE (NEGATIVE)
[2021-02-25 05:21] LABS: OSMOLALITY SERUM 301 MOSM/KG (275-295)
[2021-02-25] MEDS ORDERED: ONDANSETRON 4MG/2ML VIAL IV ONE (05:25)
[2021-02-25 05:30] LABS: ACETONE/KETONE 37.22 MG/DL (<2.81); ALBUMIN 3.4 GM/DL (3.2-5.2); ALT/SGPT 38 U/L (12-78); BILIRUBIN,DIRECT 0.4 MG/DL (0.0-0.2); BILIRUBIN,TOTAL 1.1 MG/DL (0.2-1.0); BLOOD UREA NITROGEN 19 MG/DL (7-18); CALCIUM LEVEL 9.2 MG/DL (8.5-10.1); CARBON DIOXIDE LEVEL 21 MEQ/L (21-32); CHLORIDE LEVEL 96 MEQ/L (98-107); CREATININE FOR GFR 1.01 MG/DL (0.55-1.30); ETHYL ALCOHOL (ETHANOL) < 0.003 % (0.000-0.010); GLOMERULAR FILTRATION RATE > 60.0 (>58); GLUCOSE, FASTING 479 MG/DL (70-100); LIPASE 45 U/L (73-393); POTASSIUM SERUM 4.2 MEQ/L (3.5-5.1); SODIUM LEVEL 132 MEQ/L (136-145)
[2021-02-25] MEDS ORDERED: ONDANSETRON 4MG/2ML VIAL As Ordered ONE (05:30)
[2021-02-25] MEDS ORDERED: ISOVUE-370 76% 100ML VIAL As Ordered ONE (05:40)
[2021-02-25] MEDS ORDERED: HumaLOG INSULIN (NovoLOG) PER UNIT SC STA (05:41)
--- OUTSIDE RECORDS SUMMARY | 2021-02-25 05:46 | CCD ---
Author Author [facility] Organization [facility] Address Unknown Phone Unavailable Care Team Providers Care Buttermilk Drier Operator Name Role Phone Nikole Freire MD Unavailable [...] Unavailable Deepika, M Adilia PA Unavailable Unavailable Scordo, M Cher PA [...] Unavailable Unavailable Genevieve CATES MD Unavailable Unavailable BARAYUGAGenevieve MD Unavailable Unavailable BARNELIAUGAGenevieve MD Unavailable Unavailable BARAYUGAGenevieve MD Unavailable Unavailable BARAYUGAGenevieve MD Unavailable Unavailable YESENIAUGAGenevieve MD Unavailable Unavailable BARAYUGAGenevieve MD Unavailable Unavailable MCELHERAN, JADIEL PA Unavailable Unavailable [...] Unavailable Unavailable MCELHERAN, JADIEL PA Unavailable Unavailable MCELAN, JADIEL PA Unavailable Unavailable MCELAN, JADIEL PA Unavailable Unavailable MCELAN, JADIEL PA Unavailable Unavailable MCELAN, JADIEL PA Unavailable Unavailable CHEMO RUTLEDGE Unavailable Unavailable Henok Ambrocio MD Unavailable Unavailable [...] Unavailable Unavailable CERASANI, A LESLIE Unavailable Unavailable Maria L MAS Unavailable Unavailable Saniya, Zelda Unavailable Unavailable Saniya, [...] Unavailable MAJAK, R DAQUAN DPM Unavailable Unavailable SANIYA, COOKIE AILYN Unavailable Unavailable Dayna Iraheta AGPCNP Unavailable Unavailable Dayna Iraheta AGPCNP Unavailable Unavailable Dayna Iraheta AGPCNP Unavailable Unavailable Brittni Jackson Unavailable ARIF, Mell SIMS MD Unavailable Unavailable ARIF, Mell SIMS MD Unavailable Unavailable ARIF, O LEIV PORTER Unavailable Unavailable ARIF, O LEVI PORTER Unavailable Unavailable ARIF, O LEVI PORTER Unavailable Unavailable ARIF, O LEVI PORTER Unavailable Unavailable ARIF, O LEVI PORTER Unavailable Unavailable ARIF, O LEVI PORTER Unavailable Unavailable ARIF, O LEVI PORTER Unavailable Unavailable ARIF, O LEVI PORTER Unavailable Unavailable ARIF, O LEVI PORTER Unavailable Unavailable ARIF, O SIMS MD Unavailable Unavailable ARIF, O LEVI [...] Unavailable ARIF, O LEVI PORTER Unavailable Unavailable Johnna Guille, Chemo Unavailable [phone] Johnna Guille, Chemo Unavailable [phone] JohnnaTony Wongessa Unavailable [phone] Johnna Guille, Chemo Unavailable [phone] Johnna Guille, Chemo Unavailable [phone] Johnna Guille, Chemo Unavailable [phone] Johnna Guille, Chemo Unavailable [phone] Johnna Guille, Chemo Unavailable [phone] GERSON, Siena PA-C Unavailable Unavailable GERSON, [...] Unavailable Unavailable Gayle Burrell MD Unavailable Unavailable AbrissGenevieve MD Unavailable Unavailable AbrissGenevieve MD Unavailable Unavailable Abriss, Genevieve Whiting MD Unavailable Unavailable AbrissGenevieve MD Unavailable Unavailable Abriss, Genevieve Whiting MD Unavailable Unavailable Abriss, Genevieve Whiting MD Unavailable Unavailable Abriss, Genevieve Whiting MD Unavailable Unavailable Abriss, Genevieve Whiting MD Unavailable Unavailable Abriss, B Henok PORTER Unavailable Unavailable Abrlesia, Genevieve Whiting MD Unavailable Unavailable Abriss B Henok PORTER Unavailable Unavailable AbrissGenevieve MD Unavailable Unavailable AbrGenevieve graf MD Unavailable Unavailable Abriss, B Henok PORTER [...] Unavailable Unavailable LUCA HOYT MD Unavailable Unavailable Paty BYNUM MD Unavailable [...] FLETCHER, Paty FELTON MD Unavailable Unavailable FLETCHER, Ptay FELTON MD Unavailable Unavailable FLETCHER, Paty FELTON [...] Unavailable FLETCHER, Paty FELTON MD Unavailable Unavailable FLECTHER, Paty FELTON MD Unavailable Unavailable FLETCHER, Paty [...] Unavailable FLETCHER, Paty FELTON MD Unavailable Unavailable EGORHO, F ZAHEER FPMHNP [...] is protected by Article 27-F of the [facility] Public Health law. If you continue you may have access to information: Regarding HIV / AIDS; Provided by facilities licensed or operated by the [facility] Office of Mental Health; or Provided by the [facility] Office for People With Developmental Disabilities. If such information is present, then the following [facility] mandated warning applies: This information has been [...] law may result in a fine or longterm sentence or both. A general authorization for the release of medical or other information is NOT sufficient authorization for further disc losure. Family History Family Member Name Family Member Gender Family Member Status Date o f Status Description Data Source(s) Unknown Unknown Problem [facility] ([facility] Unknown Unknown Problem [facility] ([facility] Unknown Female Problem [facility] ([facility] ) Encounters Encounter Providers Location Date Indications Data Source(s ) Outpatient Attender: LUCA HOYT MD 05/19/2021 12:00:00 AM [facility] Outpatient Attender: Chemo GalloAttender: HEIDI GALLO 05/11/2021 12:00:00 AM [facility] Outpatient Attender: Adilia ZEPEDA 04/15/2021 12:00:00 AM [facility] Outpatient Attender: DAQUAN PEREYRA [facility] 02/07 12:15:00 PM EST [facility] ([facility] Outpatient Attender: EDGAR Chadwick cb: Edgar Iraheta AGPCNPReferrer: AILYN KOTHARI [id number] 02/14/2021 12:00:00 AM EST - 02/14/2021 10:26:18 AM [facility] Outpatient Attender: DAQUAN PEREYRA [facility] 01/08 03:00:00 PM EDT [facility] ([facility] Extended Individual Psychotherapy - 45 min Attender: Brittni Manuel [facility] 02/03/2021 10:00:00 AM EDT - 02/03/2021 10:00:00 AM EDT [facility] ([facility]) Attender: Brittni Jackson 02/03/2021 12:00:00 AM EDT [facility] ([facility]) OFFICE OUTPATIENT VISIT 15 MINUTES Attender: JADIEL ZEPEDA Physical Therapy 01/27/2021 02:00:00 PM EDT [facility] ([facility] ) Extended Individual Psychotherapy - 45 min Attender: Brittni Jackson [facility] 01/26/2021 11:00:00 AM EDT - 01/26/2021 11:00:00 AM EDT [facility] ([facility]) Attender: Brittni Jackson 01/26/2021 12:00:00 AM EDT [facility] ([facility]) Outpatient Attender: Siena ZEPEDA-CAttatyana: RAISA NEFF MD 01/13/2021 12:00:00 AM [facility] Outpatient Attender: Adilia ZEPEDA [id number] 01/07/2021 12:00:0 0 AM [facility] Attender: Brittni Jackson 01/07/2021 12:00:00 AM EDT [facility] ([facility]) TEMPMHCTelemed 30" Psychotherapy Attender: Brittni Jackson [facility] 01/06/2021 12:00:00 PM EDT - 01/06/2021 12:00:00 PM EDT [facility] ([facility]) Ailyn Kothari MD: [address] [place] [phone], Ph. Attender: Zelda Saniya [facility] Medical 01/05/2021 12:00:00 AM EDT [facility] ([facility]) Outpatient Attender: Adilia ZEPEDA 12/31/2020 12:00:00 AM EDT [facility] Attender: Brittni Jackson 12/29/2020 12:00:00 AM EDT [facility] ([facility]) Extended Individual Psychotherapy - 45 min Attender: Brittni Jackson [facility] 12/27/2020 01:00:00 AM EDT - 12/27/2020 01:00:00 AM EDT [facility] ([facility]) Outpatient Attender: Marc Ambrocio MD [facility] magdiel 12/14/2020 08:00:00 AM EDT - 12/14/2020 08:00:00 AM EDT [facility] ([facility]) Attender: Marc Ambrocio MD 12/14/2020 12:00:00 AM EDT [facility] ([facility]) Outpatient Referrer: JOSE FRANCISCO BYNUM MD 12/02/2020 1 2:00:00 AM EDT Radiculopathy, lumbar region [facility] Radiculopathy, lumbar region Outpatient Attender: JOSE FRANCISCO BYNUM MD [id number] 12/02/2020 1 2:00:00 AM EDT Radiculopathy, lumbar region [facility] Radiculopathy, lumbar region Nate Freire MD: [address] [place] [phone], Ph. Attender: Nate Freire MD [facility] Medical 11/26/2020 12:00:00 AM EDT [facility] ([facility]) Nate Freire MD: [address] [place] [phone], Ph. Attender: Nate Freire MD [facility] Medical 11/26/2020 12:00:00 AM EDT [facility] ([facility]) Attender: Brittni Jackson 11/25/2020 12:00:00 AM EDT [facility] ([facility]) Extended Individual Psychotherapy - 45 min Attender: Brittni Jackson [facility] 11/24/2020 03:00:00 AM EDT - 11/24/2020 03:00:00 AM EDT [facility] ([facility]) Ailyn Kothari MD: [address], [place] [address], Ph. Attender: Ailyn Kothari [facility] 11/24/2020 12:00:00 AM EDT [facility] ([facility]) Ailyn Kothari MD: [address], [place] [address], Ph. Attender: Ailyn Kothari [facility] 11/24/2020 12:00:00 AM EDT [facility] ([facility]) Ailyn Kothari MD: [address], [place] [address], Ph. Attender: Ailyn Kothari [facility] 11/24/2020 12:00:00 AM EDT [facility] ([facility]) Attender: Brittni Jackson 11/12/2020 12:00:00 AM EDT [facility] ([facility]) Outpatient Attender: ARDEN MASReferrer: LESLIE GORMAN 11/11/2020 12:00:00 AM EDT Personal history of other diseases of th e nervous system and sense organs [facility] Personal history of other diseases of th e nervous system and sense organs Brief Individual Psychotherapy - 30 min Attender: Brittni varela [facility] 11/10/2020 03:00:00 AM EDT - 11/10/2020 03:00:00 AM EDT [facility] ([facility]) Health Monitoring - 30 Min Attender: Kami Gunn [facility] 11/10/2020 02:00:00 AM EDT - 11/10/2020 02:00:00 AM EDT [facility] ([facility]) Health Monitoring - 15 Min Attender: Kami Gunn [facility] 11/10/2020 02:00:00 AM EDT - 11/10/2020 02:00:00 AM EDT [facility] ([facility]) Attender: Kami Gunn 11/10/2020 12:00:00 AM EDT [facility] ([facility]) Ailyn Kothari MD: [address], [place] [address], Ph. Attender: Ailyn Kothari [facility] Medical 11/08/2020 12:00:00 AM EDT [facility] ([facility]) Ailyn Kothari MD: [address], [place] [address], Ph. Attender: Ailyn Kothari [facility] Medical 11/08/2020 12:00:00 AM EDT [facility] ([facility]) Ailyn Kothari MD: [address], [place] [address], Ph. Attender: Ailyn Kothari [facility] Medical 11/08/2020 12:00:00 AM EDT [facility] ([facility]) Ailyn Kothari MD: [address], [place] [address], Ph. Attender: Ailyn Kothari [facility] Medical 11/08/2020 12:00:00 AM EDT [facility] ([facility]) Ailyn Kothari MD: [address], [place] [address], Ph. Attender: Ailyn Kothari [facility] Medical 11/03/2020 12:00:00 AM EDT [facility] ([facility]) Ailyn Kothari MD: [address], [place] [address], Ph. Attender: Ailyn Kothari [facility] Medical 11/03/2020 12:00:00 AM EDT [facility] ([facility]) Ailyn Kothari MD: [address], [place] [address], Ph. Attender: Ailyn Kothari [facility] Medical 11/03/2020 12:00:00 AM EDT [facility] ([facility]) Ailyn Kothari MD: [address], [place] [address], Ph. Attender: Ailyn Kothari [facility] Medical 11/03/2020 12:00:00 AM EDT [facility] ([facility]) Ailyn Kothari MD: [address], [place] [address], Ph. Attender: Ailyn Kothari [facility] Medical 11/03/2020 12:00:00 AM EDT [facility] ([facility]) Ailyn Kothari MD: [address], [place] [address], Ph. Attender: Ailyn Kothari [facility] Medical 10/29/2020 12:00:00 AM EDT [facility] ([facility]) Ailyn Kothari MD: [address], [place] [address], Ph. Attender: Ailyn Kothari [facility] Medical 10/29/2020 12:00:00 AM EDT [facility] ([facility]) Ailyn Kothari MD: [address], [place] [address], Ph. Attender: Ailyn Kothari [facility] Medical 10/29/2020 12:00:00 AM EDT [facility] ([facility]) Ailyn Kothari MD: [address], [place] [address], Ph. Attender: Ailyn Kothari [facility] Medical 10/29/2020 12:00:00 AM EDT [facility] ([facility]) Ailyn Kothari MD: [address], [place] [address], Ph. Attender: Ailyn Kothari [facility] Medical 10/29/2020 12:00:00 AM EDT [facility] ([facility]) Ailyn Kothari MD: [address], [place] [address], Ph. Attender: Ailyn Kothari [facility] Medical 10/29/2020 12:00:00 AM EDT [facility] ([facility]) Attender: Brittni Jackson 10/28/2020 12:00:00 AM EDT [facility] ([facility]) Extended Individual Psychotherapy - 45 min Attender: Brittni Jackson [facility] 10/27/2020 03:00:00 AM EDT - 10/27/2020 03:00:00 AM EDT [facility] ([facility]) Office Visit Attender: Tea Belcher/Talon/Jono/Maria L hadley 10/21/2020 10:45:00 AM EDT [facility] ([facility]) Ailyn Kothari MD: [address], [place] [address], Ph. Attender: Ailyn Kothari [facility] Medical 10/20/2020 12:00:00 AM EDT [facility] ([facility]) Ailyn Kothari MD: [address], [place] [address], Ph. Attender: Ailyn Kothari [facility] Medical 10/20/2020 12:00:00 AM EDT [facility] ([facility]) Ailyn Kothari MD: [address], [place] [address], Ph. Attender: Ailyn Kothari [facility] Medical 10/20/2020 12:00:00 AM EDT [facility] ([facility]) Ailyn Kothari MD: [address], [place] [address], Ph. Attender: Ailyn Kothari [facility] Medical 10/20/2020 12:00:00 AM EDT [facility] ([facility]) Ailyn Kothari MD: [address], [place] [address], Ph. Attender: Ailyn Kothari [facility] Medical 10/20/2020 12:00:00 AM EDT [facility] ([facility]) Ailyn Kothari MD: [address], [place] [address], Ph. Attender: Ailyn Kothari [facility] Medical 10/20/2020 12:00:00 AM EDT [facility] ([facility]) Ailyn Kothari MD: [address], [place] [address], Ph. Attender: Ailyn Kothari [facility] Medical 10/20/2020 12:00:00 AM EDT [facility] ([facility]) Ailyn Kothari MD: [address] [place] [address], Ph. Attender: Ailyn Kothari [facility] Medical 10/20/2020 12:00:00 AM EDT [facility] ([facility]) Ailyn Kothari MD: [address] [place] [address], Ph. Attender: Ailyn Kothari [facility] Medical 10/20/2020 12:00:00 AM EDT [facility] ([facility]) Outpatient Attender: Marc Ambrocio MD [facility] magdiel 10/19/2020 09:00:00 AM EDT - 10/19/2020 09:00:00 AM EDT [facility] ([facility]) Attender: Marc Ambrocio MD 10/19/2020 12:00:00 AM EDT [facility] ([facility]) Outpatient Attender: Leslie Moreau ttender: LESLIE TREVINOReferrer: AILYN KOTHARI [id number] 10/13/2020 12:00:00 AM EDT - 01/03/2021 05:46:41 PM T [facility] OFFICE OUTPATIENT VISIT 15 MINUTES Attender: JADIEL ZEPEDA Physical Therapy 10/07/2020 01:45:00 PM EDT [facility] ([facility]) Extended Individual Psychotherapy - 45 min Attender: Brittni Jackson [facility] 09/29/2020 03:00:00 AM EDT - 09/29/2020 03:00:00 AM EDT [facility] ([facility]) Attender: Brittni Jackson 09/29/2020 12:00:00 AM EDT [facility] ([facility]) Nate Freire MD: [address] [place] [address], Ph. Attender: Nate Freire MD [facility] Medical 09/28/2020 12:00:00 AM EDT [facility] ([facility]) Nate Freire MD: [address] [place] [address], Ph. Attender: Nate Freire MD [facility] Medical 09/28/2020 12:00:00 AM EDT [facility] ([facility]) Nate Freire MD: [address] [place] [address], Ph. Attender: Nate Freire MD [facility] Medical 09/28/2020 12:00:00 AM EDT [facility] ([facility]) Nate Freire MD: [address] [place] [address], Ph. Attender: Nate Freire MD [facility] Medical 09/28/2020 12:00:00 AM EDT [facility] ([facility]) Nate Freire MD: [address] [place] [address], Ph. Attender: Nate Freire MD [facility] Medical 09/28/2020 12:00:00 AM EDT [facility] ([facility]) Nate Freire MD: [address] [place] [address], Ph. Attender: Nate Freire MD [facility] Medical 09/28/2020 12:00:00 AM EDT [facility] ([facility]) Nate Freire MD: [address] [place] [address], Ph. Attender: Nate Freire MD [facility] Medical 09/28/2020 12:00:00 AM EDT [facility] ([facility]) Nate Freire MD: [address] [place] [address], Ph. Attender: Nate Freire MD [facility] Medical 09/28/2020 12:00:00 AM EDT [facility] ([facility]) Nate Freire MD: [address], [place] [address], Ph. Attender: Nate Freire MD [facility] Medical 09/28/2020 12:00:00 AM EDT [facility] ([facility]) Ailyn Kothari MD: [address], [place] [address], Ph. Attender: Ailyn Kothari [facility] Medical 09/27/2020 12:00:00 AM EDT [facility] ([facility]) Ailyn Kothari MD: [address], [place] [address], Ph. Attender: Ailyn Kothari [facility] Medical 09/27/2020 12:00:00 AM EDT [facility] ([facility]) Ailyn Kothari MD: [address], [place] [address], Ph. Attender: Ailyn Kothari [facility] Medical 09/27/2020 12:00:00 AM EDT [facility] ([facility]) Ailyn Kothari MD: [address], [place] [address], Ph. Attender: Ailyn Kothari [facility] Medical 09/27/2020 12:00:00 AM EDT [facility] ([facility]) Ailyn Kothari MD: [address], [place] [address], Ph. Attender: Ailyn Kothari [facility] Medical 09/27/2020 12:00:00 AM EDT [facility] ([facility]) Ailyn Kothari MD: [address], [place] [address], Ph. Attender: Ailyn Kothari [facility] Medical 09/27/2020 12:00:00 AM EDT [facility] ([facility]) Ailyn Kothari MD: [address], [place] [address], Ph. Attender: Ailyn Kothari [facility] Medical 09/27/2020 12:00:00 AM EDT [facility] ([facility]) Ailyn Kothari MD: [address], [place] [address], Ph. Attender: Ailyn Kothari [facility] Medical 09/27/2020 12:00:00 AM EDT [facility] ([facility]) Ailyn Kothari MD: [address], [place] [address], Ph. Attender: Ailyn Kothari [facility] Medical 09/27/2020 12:00:00 AM EDT [facility] ([facility]) Ailyn Kothari MD: [address], [place] [address], Ph. Attender: Ailyn Kothari [facility] Medical 09/27/2020 12:00:00 AM EDT [facility] ([facility]) Outpatient Attender: HANS Belcher/Talon/Jono/ Rodríguez 09/23/2020 11:15:00 AM EDT [facility] ([facility]) Ailyn Kothari MD: [address], [place] [address], Ph. Attender: Ailyn Kothari [facility] Medical 09/22/2020 12:00:00 AM EDT [facility] ([facility]) Nate Freire MD: [address] [place] [address], Ph. Attender: Nate Freire MD [facility] Medical 09/22/2020 12:00:00 AM EDT [facility] ([facility]) Ailyn Kothari MD: [address] , [place] [address], Ph. Attender: Ailyn Kothari [facility] Medical 09/22/2020 12:00:00 AM EDT [facility] ([facility]) Nate Freire MD: [address] [place] [address], Ph. Attender: Nate Freire MD [facility] Medical 09/22/2020 12:00:00 AM EDT [facility] ([facility]) Ailyn Kothari MD: [address] , [place] [address], Ph. Attender: Ailyn Kothari [facility] Medical 09/22/2020 12:00:00 AM EDT [facility] ([facility]) Nate Freire MD: [address] [place] [address], Ph. Attender: Nate Freire MD [facility] Medical 09/22/2020 12:00:00 AM EDT [facility] ([facility]) Ailyn Kothari MD: [address], [place] [address], Ph. Attender: Ailyn Kothari [facility] Medical 09/22/2020 12:00:00 AM EDT [facility] ([facility]) Nate Freire MD: [address], [place] [address], Ph. Attender: Nate Freire MD [facility] Medical 09/22/2020 12:00:00 AM EDT [facility] ([facility]) Ailyn Kothari MD: [address], [place] [address], Ph. Attender: Ailyn Kothari [facility] Medical 09/22/2020 12:00:00 AM EDT [facility] ([facility]) Nate Freire MD: [address], [place] [address], Ph. Attender: Nate Freire MD [facility] Medical 09/22/2020 12:00:00 AM EDT [facility] ([facility]) Ailyn Kothari MD: [address], [place] [address], Ph. Attender: Ailyn Kothari [facility] Medical 09/22/2020 12:00:00 AM EDT [facility] ([facility]) Ailyn Kothari MD: [address], [place] [address], Ph. Attender: Ailyn Kothari [facility] Medical 09/22/2020 12:00:00 AM EDT [facility] ([facility]) Nate Freire MD: [address], [place] [address], Ph. Attender: Nate Freire MD [facility] Medical 09/22/2020 12:00:00 AM EDT [facility] ([facility]) Ailyn Kothari MD: [address], [place] [address], Ph. Attender: Ailyn Kothari [facility] Medical 09/22/2020 12:00:00 AM EDT [facility] ([facility]) Nate Freire MD: [address] [place] [address], Ph. Attender: Nate Freire MD [facility] Medical 09/22/2020 12:00:00 AM EDT [facility] ([facility]) Ailyn Kothari MD: [address] , [place] [address], Ph. Attender: Ailyn Kothari [facility] Medical 09/22/2020 12:00:00 AM EDT [facility] ([facility]) Nate Freire MD: [address] [place] [address], Ph. Attender: Nate Freire MD [facility] Medical 09/22/2020 12:00:00 AM EDT [facility] ([facility]) Ailyn Kothari MD: [address], [place] [address], Ph. Attender: Ailyn Kothari [facility] Medical 09/22/2020 12:00:00 AM EDT [facility] ([facility]) Nate Freire MD: [address] [place] [address], Ph. Attender: Nate Freire MD [facility] Medical 09/22/2020 12:00:00 AM EDT [place] ([facility]) Ailyn Kothari MD: [address], [place] [address], Ph. Attender: Ailyn Kothari [facility] Medical 09/22/2020 12:00:00 AM EDT [place] ([facility]) Nate Freire MD: [address] [place] [address], Ph. Attender: Nate Freire MD [facility] Medical 09/22/2020 12:00:00 AM EDT [place] ([facility]) Outpatient Attender: Marc Ambrocio MD [facility] Giuseppe veloz 09/21/2020 10:00:00 AM EDT - 09/21/2020 10:00:00 AM EDT [facility] ([facility]) Attender: Marc Ambrocio MD 09/21/2020 12:00:00 AM EDT [facility]umed[facility] ([facility]) Outpatient Attender: DAQUAN PEREYRA [facility] 09/07 02:30:00 PM EDT MEDENT ([facility] Outpatient Attender: Marc Ambrocio MD [facility] Giuseppe l 09/14/2020 08:30:00 AM EDT - 09/14/2020 08:30:00 AM EDT [facility] ([facility]) Attender: Marc Ambrocio MD 09/14/2020 12:00:00 AM EDT [facility] ([facility]) Extended Individual Psychotherapy - 45 min Attender: Brittni Jackson [facility] Rox 09/01/2020 03:00:00 AM EDT - 09/01/2020 03:00:00 AM EDT [facility]umed[facility] ([facility]) Ailyn Kothari MD: [address] , [place] [address], Ph. Attender: Ailyn Kothari [facility] Medical 09/01/2020 12:00:00 AM EDT [place] ([facility]) Ailyn Kothari MD: [address], [place] [address], Ph. Attender: Ailyn Kothari [facility] Medical 09/01/2020 12:00:00 AM EDT [place] ([facility]) Ailyn Kothari MD: [address], [place] [address], Ph. Attender: Ailyn Kothari [facility] Medical 09/01/2020 12:00:00 AM EDT [place] ([facility]) Ailyn Kothari MD: [address], [place] [address], Ph. Attender: Ailyn Kothari [facility] Medical 09/01/2020 12:00:00 AM EDT [place] ([facility]) Ailyn Kothari MD: [address], [place] [address], Ph. Attender: Ailyn Kothari [facility] Medical 09/01/2020 12:00:00 AM EDT [place] ([facility]) Ailyn Kothari MD: [address], [place] [address], Ph. Attender: Ailyn Kothari [facility] Medical 09/01/2020 12:00:00 AM EDT [place] ([facility]) Ailyn Ktohari MD: [address], [place] [address], Ph. Attender: Ailyn Kothari [facility] Medical 09/01/2020 12:00:00 AM EDT [place] ([facility]) Ailyn Kothari MD: [address], [place] [address], Ph. Attender: Ailyn Kothari [facility] Medical 09/01/2020 12:00:00 AM EDT [place] ([facility]) Ailyn oKthari MD: [address], [place] [address], Ph. Attender: Ailyn Kothari [facility] Medical 09/01/2020 12:00:00 AM EDT [place]ONE[place] ([facility]) iAlyn Kothari MD: [address], [place] [address], Ph. Attender: Ailyn Kothari [facility] Medical 09/01/2020 12:00:00 AM EDT [place]ONE[place] ([facility]) Ailyn Kothari MD: [address], [place] [address], Ph. Attender: Ailyn Kothari [facility] Medical 09/01/2020 12:00:00 AM EDT TONE[place] ([facility]) Ailyn Kothari MD: [address], [place] [address], Ph. Attender: Ailyn Kothari [facility] Medical 09/01/2020 12:00:00 AM EDT [place] ([facility]) Ailyn Kothari MD: [address], [place] [address], Ph. Attender: Ailyn Kothari [facility] Medical 09/01/2020 12:00:00 AM EDT TONE[place] ([facility]) Ailyn Kothari MD: [address], [place] [address], Ph. Attender: Ailyn Kothari [facility] Medical 09/01/2020 12:00:00 AM EDT [facility]ONE[place] ([facility]) Ailyn Kothari MD: [address], [place] [address], Ph. Attender: Ailyn Kothari [facility] Medical 09/01/2020 12:00:00 AM EDT TONE[place] ([facility]) Attender: Brittni Manuel 09/01/2020 12:00:00 AM EDT [facility] ([facility]) Ailyn Kothari MD: [address], [place] [address], Ph. Attender: Ailyn Kothari [facility] 09/01/2020 12:00:00 AM EDT [place] ([facility]) Ailyn Kothari MD: [address], [place] [address], Ph. Attender: Ailyn Kothari [facility] 09/01/2020 12:00:00 AM EDT [place]ONE[place] ([facility]) Ailyn Kothari MD: [address], [place] [address], Ph. Attender: Ailyn Kothari [facility] Medical 09/01/2020 12:00:00 AM EDT TONE[place] ([facility]) Ailyn Kothari MD: [address], [place] [address], Ph. Attender: Ailyn Kothari [facility] Medical 09/01/2020 12:00:00 AM EDT [place]ONE[place] ([facility]) Ailyn Kothari MD: [address], [place] [address], Ph. Attender: Ailyn Kothari [facility] Medical 09/01/2020 12:00:00 AM EDT [place]ONE[place] ([facility]) Ailyn Kothari MD: [address], [place] [address], Ph. Attender: Ailyn Kothari [facility] Medical 09/01/2020 12:00:00 AM EDT [place] ([facility]) Ailyn Kothari MD: [address], [place] [address], Ph. Attender: Ailyn Kothari [facility] Medical 09/01/2020 12:00:00 AM EDT [place] ([facility]) Ailyn Kothair MD: [address], [place] [address], Ph. Attender: Ailyn Kothari [facility] Medical 09/01/2020 12:00:00 AM EDT [place] ([facility]) Ailyn Kothari MD: [address], [place] [address], Ph. Attender: Ailyn Kothari [facility] Medical 09/01/2020 12:00:00 AM EDT [place] ([facility]) Ailyn Kothari MD: [address], [place] [address], Ph. Attender: Ailyn Kothari [facility] Medical 09/01/2020 12:00:00 AM EDT [place] ([facility]) Office Visit Attender: DAQUAN PEREYRA [facility] Office 10/2020 02:30:00 PM EDT MEDTEDDY ([facility] Outpatient Attender: JADIEL ZEPEDA Physical Therapy 08/11/2020 10:00:00 AM EDT MEDTEDDY ([facility]) Outpatient Attender: Henok Burrell MD Physical Therapy 10:30:00 AM EDT MEDENT ([facility]) Ailyn Kothari MD: [address], [place] [address], Ph. Attender: Ailyn Kothari [facility] Medical 07/28/2020 12:00:00 AM EDT [place]ONE[place] ([facility]) Ailyn Kothari MD: [address], [place] [address], Ph. Attender: Ailyn Kothari [facility] Medical 07/28/2020 12:00:00 AM EDT TONE[place] ([facility]) Ailyn Kothari MD: [address], [place] [address], Ph. Attender: Ailyn Kothari [facility] Medical 07/28/2020 12:00:00 AM EDT TONE[place] ([facility]) Ailyn Kothari MD: [address], [place] [address], Ph. Attender: Ailyn Kothari [facility] Medical 07/28/2020 12:00:00 AM EDT [facility] ([facility]) Ailyn Kothari MD: [address], [place] [address], Ph. Attender: Ailyn Kothari [facility] Medical 07/28/2020 12:00:00 AM EDT TONE[place] ([facility]) Ailyn Kothari MD: [address], [place] [address], Ph. Attender: Ailyn Kothari [facility] Medical 07/28/2020 12:00:00 AM EDT [place]ONE[place] ([facility]) Ailyn Kothari MD: [address], [place] [address], Ph. Attender: Ailyn Kothari [facility] Medical 07/28/2020 12:00:00 AM EDT [place]ONE[place] ([facility]) Ailyn Kothari MD: [address], [place] [address], Ph. Attender: Ailyn Kothari [facility] Medical 07/28/2020 12:00:00 AM EDT [place]ONE[place] ([facility]) Ailyn Kothari MD: [address], [place] [address], Ph. Attender: Ailyn Kothari [facility] Medical 07/28/2020 12:00:00 AM EDT [place] ([facility]) Ailyn Kothari MD: [address], [place] [address], Ph. Attender: Ailyn Kothari [facility] Medical 07/28/2020 12:00:00 AM EDT [place] ([facility]) Ailyn Kothari MD: [address], [place] [address], Ph. Attender: Ailyn Kothari [facility] Medical 07/28/2020 12:00:00 AM EDT [place] ([facility]) Ailyn Kothari MD: [address], [place] [address], Ph. Attender: Ailyn Kothari [facility] Medical 07/28/2020 12:00:00 AM EDT [place] ([facility]) Ailyn Kothari MD: [address], [place] [address], Ph. Attender: Ailyn Kothari [facility] Medical 07/28/2020 12:00:00 AM EDT [place] ([facility]) Ailyn Kothari MD: [address] [place] [address], Ph. Attender: Ailyn Kothari [facility] Medical 07/28/2020 12:00:00 AM EDT [place] ([facility]) Attender: Brittni Jackson 07/22/2020 12:00:00 AM EDT [facility] ([facility]) Extended Individual Psychotherapy - 45 min Attender: Brittni Jackson [facility] 07/21/2020 03:00:00 AM EDT - 07/21/2020 03:00:00 AM EDT [facility] ([facility]) Outpatient Attender: Marc [facility]rocio [facility] 07/20/2020 08:30:00 AM EDT - 07/20/2020 08:30:00 AM EDT [facility] ([facility]) Attender: Marc Ambrocio MD 07/20/2020 12:00:00 AM EDT [facility] ([facility]) Outpatient Attender: Gopal Belcher/Talon/Jono/Radha stewart 07/07/2020 07:30:00 AM EDT MEDENT ([facility]) Attender: Brittni Jackson 07/01/2020 12:00:00 AM EDT [facility] ([facility]) Extended Individual Psychotherapy - 45 min Attender: Brittni Jackson [facility] 06/30/2020 01:00:00 AM EDT - 06/30/2020 01:00:00 AM EDT [facility]umed[facility] ([facility]) Nate Freire MD: [address] [place] [address], Ph. Attender: Nate Freire MD [facility] Medical 06/30/2020 12:00:00 AM EDT TONE[place] ([facility]) Nate Freire MD: [address] [place] [address], Ph. Attender: Nate Freire MD [facility] Medical 06/30/2020 12:00:00 AM EDT [place] ([facility]) Nate Freire MD: [address] [place] [address], Ph. Attender: Nate Freire MD [facility] Medical 06/30/2020 12:00:00 AM EDT [place] ([facility]) Nate Freire MD: [address] [place] [address], Ph. Attender: Nate Freire MD [facility] Medical 06/30/2020 12:00:00 AM EDT [place]ONE[place] ([facility]) Nate Freire MD: [address] [place] [address], Ph. Attender: Nate Freire MD [facility] Medical 06/30/2020 12:00:00 AM EDT TONE[place] ([facility]) Nate Freire MD: [address] [place] [address], Ph. Attender: Nate Freire MD [facility] Medical 06/30/2020 12:00:00 AM EDT [facility]ONE[place] ([facility]) Nate Freire MD: [address] [place] [address], Ph. Attender: Nate Freire MD [facility] Medical 06/30/2020 12:00:00 AM EDT TONE[place] ([facility]) Nate Freire MD: [address] [place] [address], Ph. Attender: Nate Freire MD [facility] Medical 06/30/2020 12:00:00 AM EDT TONE[place] ([facility]) Nate Freire MD: [address] [place] [address], Ph. Attender: Nate Freire MD [facility] Medical 06/30/2020 12:00:00 AM EDT [facility]ONE[place] ([facility]) Nate Freire MD: [address] [place] [address], Ph. Attender: Nate Freire MD [facility] Medical 06/30/2020 12:00:00 AM EDT TONE[place] ([facility]) Nate Freire MD: [address] [place] [address], Ph. Attender: Nate Freire MD [facility] Medical 06/30/2020 12:00:00 AM EDT [facility]ONE[facility] ([facility]) Nate Freire MD: [address] [place] [address], Ph. Attender: Nate Freire MD [facility] Medical 06/30/2020 12:00:00 AM EDT TONE[facility] ([facility]) Nate Freire MD: [address] [place] [address], Ph. Attender: Nate Freire MD [facility] Medical 06/30/2020 12:00:00 AM EDT TONE[place] ([facility]) Nate Freire MD: [address] [place] [address], Ph. Attender: Nate Freire MD [facility] Medical 06/30/2020 12:00:00 AM EDT TONE[place] ([facility]) Nate Freire MD: [address] [place] [address], Ph. Attender: Nate Freire MD [facility] Medical 06/30/2020 12:00:00 AM EDT T[place] ([facility]) Office Visit Attender: Gopal Belcher/Talon/Jono/Rein dl 06/23/2020 07:30:00 AM EDT MEDTEDDY ([facility] Cher Fajardo PA-C: [address], [place] [address], Ph. Attender: Cher [facility] Medical 06/23/2020 12:00:00 AM EDT [place] ([facility]) Cher Fajardo PA-C: [address], [place] [address], Ph. Attender: Cher [facility] Medical 06/23/2020 12:00:00 AM EDT [place] ([facility]) Cher Fajardo PA-C: [address], [place] [address], Ph. Attender: Cher [facility] Medical 06/23/2020 12:00:00 AM EDT [place] ([facility]) Cher Fajardo PA-C: [address], [place] [address], Ph. Attender: Cher [facility] Medical 06/23/2020 12:00:00 AM EDT [place] ([facility]) Cher Fajardo PA-C: [address], [place] [address], Ph. Attender: Cher [facility] Medical 06/23/2020 12:00:00 AM EDT [facility] ([facility]) Cher Fajardo PA-C: [address], [place] [address], Ph. Attender: Cher [facility] Medical 06/23/2020 12:00:00 AM EDT [facility] ([facility]) Cher Fajardo PA-C: [address], [place] [address], Ph. Attender: Cher [facility] Medical 06/23/2020 12:00:00 AM EDT [place] ([facility]) Cher Fajardo PA-C: [address], [place] [address], Ph. Attender: Cher [facility] Medical 06/23/2020 12:00:00 AM EDT [place] ([facility]) Cher Fajardo PA-C: [address], [place] [address], Ph. Attender: Cher [facility] Medical 06/23/2020 12:00:00 AM EDT [facility]ONE[place] ([facility]) Cher Fajardo PA-C: [address], [place] [address], Ph. Attender: Cher [facility] Medical 06/23/2020 12:00:00 AM EDT [facility] ([facility]) Cher Fajardo PA-C: [address], [place] [address], Ph. Attender: Cher [facility] Medical 06/23/2020 12:00:00 AM EDT [facility] ([facility]) Cher Fajardo PA-C: [address], [place] [address], Ph. Attender: Cher [facility] Medical 06/23/2020 12:00:00 AM EDT [place] ([facility]) Cher Fajardo PA-C: [address], [place] [address], Ph. Attender: Cher [facility] Medical 06/23/2020 12:00:00 AM EDT [place] ([facility]) Cher Fajardo PA-C: [address], [place] [address], Ph. Attender: Cher [facility] Medical 06/23/2020 12:00:00 AM EDT [place] ([facility]) Cher Fajardo PA-C: [address], [place] [address], Ph. Attender: Cher [facility] Medical 06/23/2020 12:00:00 AM EDT [place] ([facility]) Cher Fajardo PA-C: [address], [place] [address], Ph. Attender: Cher [facility] Medical 06/23/2020 12:00:00 AM EDT [place] ([facility]) Outpatient Attender: Marc Ambrocio MD [facility] 06/22/2020 08:30:00 AM EDT - 06/22/2020 08:30:00 AM EDT [facility] ([facility]) Attender: Marc Ambrocio MD 06/22/2020 12:00:00 AM EDT [facility] ([facility]) Office Visit Attender: Henok Belcher/Talon/Jono/Iliana leel 06/16/2020 10:30:00 AM EST MEDENT ([facility]) [place] [address] [facility] [address] 06/15/2020 12:00:00 AM EST eCW1 ([facility]) Attender: Brittni Jackson 06/04/2020 12:00:00 AM EST [facility] ([facility]) Extended Individual Psychotherapy - 45 min Attender: Brittni Jackson [facility] 06/02/2020 02:00:00 AM EST - 06/02/2020 02:00:00 AM EST [facility] ([facility]) Outpatient Attender: Marc Ambrocio MD [facility] 05/25/2020 08:30:00 AM EST - 05/25/2020 08:30:00 AM EST [facility] ([facility]) Attender: Marc Ambrocio MD 05/25/2020 12:00:00 AM EST [facility] ([facility]) Attender: Brittni Jackson 05/21/2020 12:00:00 AM EST [facility] ([facility]) Extended Individual Psychotherapy - 45 min Attender: Brittni Jackson [facility] 05/19/2020 02:00:00 AM EST - 05/19/2020 02:00:00 AM EST [facility] ([facility]) Attender: Brittni Jackson 05/14/2020 12:00:00 AM EST [facility] ([facility]) TEMPMHCTelemed 30" Psychotherapy Attender: Brittni Jackson [facility] 05/12/2020 02:00:00 AM EST - 05/12/2020 02:00:00 AM EST [facility] ([facility]) Attender: Brittni Jackson 05/07/2020 12:00:00 AM EST [facility] ([facility]) [id number]"Psychotherapy Attender: Brittni [facility] 05/05/2020 01:00:00 AM EST - 05/05/2020 01:00:00 AM EST [facility] ([facility]) Attender: Brittni Jackson 04/28/2020 12:00:00 AM EST [facility] ([facility]) Outpatient Attender: Marc Ambrocio MD [facility] Giuseppe veloz 04/27/2020 08:30:00 AM EST - 04/27/2020 08:30:00 AM EST [facility] ([facility]) Brief Individual Psychotherapy - 30 min Attender: Brittni varela [facility] 04/27/2020 02:30:00 AM EST - 04/27/2020 02:30:00 AM EST [facility] ([facility]) Attender: Marc Ambrocio MD 04/27/2020 12:00:00 AM EST [facility] ([facility]) Attender: Brittni Jackson 04/14/2020 12:00:00 AM EST [facility] ([facility]) [id number]"Psychotherapy Attender: Brittni [facility] 04/13/2020 02:00:00 AM EST - 04/13/2020 02:00:00 AM EST [facility] ([facility]) Outpatient Attender: DAQUAN PEREYRA [facility] Office 07/2020 08:45:00 AM EST MEDENT ([facility] Extended Individual Psychotherapy - 45 min Attender: Brittni Jackson [facility] 03/30/2020 09:00:00 AM EST - 03/30/2020 09:00:00 AM EST [facility] ([facility]) Attender: Brittni Jackson 03/30/2020 12:00:00 AM EST [facility] ([facility]) Unknown [address] [place] [address] 03/29/2020 12:00:00 AM EST eCW1 ([facility]) Unknown [address] [place] [address] 03/17/2020 12:00:00 AM EST eCW1 ([facility]) TEMPMHCTelemed 30" Psychotherapy Attender: [facility] 03/16/2020 01:00:00 AM EST - 03/16/2020 01:00:00 AM EST [facility] ([facility]) Attender: Brittni Jackson 03/16/2020 12:00:00 AM EST [facility] ([facility]) [place] [address] [facility] [address] 03/15/2020 12:00:00 AM EST eCW1 ([facility]) Outpatient Attender: ZAHEER SWEETCORDELIA [facility] 03/02/2020 01:00:00 AM EST - 03/02/2020 01:00:00 AM EST [facility] ([facility]) Attender: ZAHEER SWEETCORDELIA 03/02/2020 12:00: 00 AM EST [facility] ([facility]) Outpatient Attender: DAQUAN PEREYRA [facility] Office 02/07 08:45:00 AM EST [facility] ([facility] [place] [address] [facility] [address] 02/23/2020 12:00:00 AM EST eCW1 ([facility]) Extended Individual Psychotherapy - 45 min Attender: Brittni Jackson [facility] 02/17/2020 09:00:00 AM EST - 02/17/2020 09:00:00 AM EST [facility] ([facility]) [place] [address] [facility] [address] 02/17/2020 12:00:00 AM EST eCW1 ([facility]) Attender: Brittni Jackson 02/17/2020 12:00:00 AM EST [facility] ([facility]) [place] [address] [facility] [address] 02/04/2020 12:00:00 AM EDT eCW1 ([facility]) Outpatient Attender: DAQUAN PEREYRA [facility] Office 01/08 09:45:00 AM EDT MEDENT ([facility] Extended Individual Psychotherapy - 45 min Attender: Brittni Manuel [facility] 02/03/2020 09:00:00 AM EDT - 02/03/2020 09:00:00 AM EDT [facility] ([facility]) [place] [address] [facility] [address] 02/03/2020 12:00:00 AM EDT eCW1 ([facility]) Attender: Brittni Jackson 02/03/2020 12:00:00 AM EDT [facility] ([facility]) [place] [address] [facility] [facility] [address] 02/02/2020 12:00:00 AM EDT eCW1 ([facility]) [place] [address] [facility] [address] 01/27/2020 12:00:00 AM EDT eCW1 ([facility]) Outpatient [address] [facility] [address] 01/22/2020 12:00:00 AM EDT eCW1 ([facility]) [place] [address] [facility] [address] 01/21/2020 12:00:00 AM EDT eCW1 ([facility]) Outpatient Attender: DAQUAN PEREYRA [facility] Office 01/07 02:45:00 PM EDT [facility] ([facility] Extended Individual Psychotherapy - 45 min Attender: Brittni Jackson [facility] 01/20/2020 09:00:00 AM EDT - 01/20/2020 09:00:00 AM EDT [facility] ([facility]) Attender: Brittni Jackson 01/20/2020 12:00:00 AM EDT [facility] ([facility]) [place] [address] [facility] [address] 01/16/2020 12:00:00 AM EDT eCW1 ([facility]) Outpatient Attender: JADIEL ZEPEDA Physical [facility] 01/15/2020 03:00:00 PM EDT [facility] ([facility] [facility]) Outpatient Attender: ZAHEER SWEETCORDELIA [facility] J ail 01/13/2020 09:00:00 AM EDT - 01/13/2020 09:00:00 AM EDT [facility] ([facility]) Attender: ZAHEER SWEETCORDELIA 01/13/2020 12:00: 00 AM EDT [facility] ([facility]) Extended Individual Psychotherapy - 45 min Att[facility]: [facility] 01/06/2020 09:00:00 AM EDT - 01/06/2020 09:00:00 AM EDT [facility] ([facility]) Attender: Brittni Jackson 01/06/2020 12:00:00 AM EDT [facility] ([facility]) Functional Status Immunizations Vaccine Date Status Description Data Source(s) pneumococcal polysaccharide PPV23 11/24/2020 10:34:00 AM EDT com pleted 10.5 mL [facility] ([facility]) pneumococcal polysaccharide PPV23 11/24/2020 10:34:00 AM EDT com pleted 10.5 mL [facility] ([facility]) pneumococcal polysaccharide PPV23 11/24/2020 10:34:00 AM EDT com pleted 10.5 mL [facility]ONE[facility] ([facility]) Tdap 11/24/2020 10:33:00 AM EDT completed 11/24/2020 0.5 mL [facility]ONE[facility] ([facility]) Tdap 11/24/2020 10:33:00 AM EDT completed 11/24/2020 0.5 mL [facility] ([facility]) Tdap 11/24/2020 10:33:00 AM EDT completed 11/24/2020 0.5 mL [facility]) COVID-19, mRNA, LNP-S, PF, 100 mcg/0.5 mL dose 09/28/2020 04 :13:19 PM EDT completed .5 mL [facility]) COVID-19, mRNA, LNP-S, PF, 100 mcg/0.5 mL dose 09/28/2020 04 :13:19 PM EDT completed .5 mL [facility]) COVID-19, mRNA, LNP-S, PF, 100 mcg/0.5 mL dose 09/28/2020 04 :13:19 PM EDT completed .5 mL [facility]) COVID-19, mRNA, LNP-S, PF, 100 mcg/0.5 mL dose 09/28/2020 04 :13:19 PM EDT completed .5 mL [facility]) COVID-19, mRNA, LNP-S, PF, 100 mcg/0.5 mL dose 09/28/2020 04 :13:19 PM EDT completed .5 mL [facility]) COVID-19, mRNA, LNP-S, PF, 100 mcg/0.5 mL dose 09/28/2020 04 :13:19 PM EDT completed .5 mL [facility]) COVID-19, mRNA, LNP-S, PF, 100 mcg/0.5 mL dose 09/28/2020 04 :13:19 PM EDT completed .5 mL [facility]) COVID-19, mRNA, LNP-S, PF, 100 mcg/0.5 mL dose 09/28/2020 04 :13:19 PM EDT completed .5 mL [facility]) COVID-19, mRNA, LNP-S, PF, 100 mcg/0.5 mL dose 09/28/2020 04 :13:19 PM EDT completed .5 mL [facility]) COVID-19 VACCINE Moderna 09/28/2020 12:00:00 AM EDT completed NYSIIS Vaccine Series Complete: YESThis Data wa s Submitted to [facility] Via [employer]. COVID-19, mRNA, LNP-S, PF, 100 mcg/0.5 mL dose 09/01/2020 01 :33:02 PM EDT completed .5 mL [facility] ([facility]) COVID-19, mRNA, LNP-S, PF, 100 mcg/0.5 mL dose 09/01/2020 01 :33:02 PM EDT completed .5 mL [facility] ([facility]) COVID-19, mRNA, LNP-S, PF, 100 mcg/0.5 mL dose 09/01/2020 01 :33:02 PM EDT completed .5 mL [facility] ([facility]) COVID-19, mRNA, LNP-S, PF, 100 mcg/0.5 mL dose 09/01/2020 01 :33:02 PM EDT completed .5 mL [facility] ([facility]) COVID-19, mRNA, LNP-S, PF, 100 mcg/0.5 mL dose 09/01/2020 01 :33:02 PM EDT completed .5 mL [facility] ([facility]) COVID-19, mRNA, LNP-S, PF, 100 mcg/0.5 mL dose 09/01/2020 01 :33:02 PM EDT completed .5 mL [facility] ([facility]) COVID-19, mRNA, LNP-S, PF, 100 mcg/0.5 mL dose 09/01/2020 01 :33:02 PM EDT completed .5 mL [facility] ([facility]) COVID-19, mRNA, LNP-S, PF, 100 mcg/0.5 mL dose 09/01/2020 01 :33:02 PM EDT completed .5 mL [facility]) COVID-19, mRNA, LNP-S, PF, 100 mcg/0.5 mL dose 09/01/2020 01 :33:02 PM EDT completed 10.5 mL [facility] ([facility]) COVID-19, mRNA, LNP-S, PF, 100 mcg/0.5 mL dose 09/01/2020 01 :33:02 PM EDT completed 10.5 mL [facility] ([facility]) COVID-19, mRNA, LNP-S, PF, 100 mcg/0.5 mL dose 09/01/2020 01 :33:02 PM EDT completed 10.5 mL [facility] ([facility]) COVID-19, mRNA, LNP-S, PF, 100 mcg/0.5 mL dose 09/01/2020 01 :33:02 PM EDT completed .5 mL [facility] ([facility]) COVID-19 VACCINE Moderna 09/01/2020 12:00:00 AM EDT completed NESIIS Vaccine Series Complete: NOThis Data was Submitted to [facility] Via [employer]. Medications Medication Brand Name Start Date Product Form Dose Route Admi nistrative Instructions Pharmacy Instructions Status Indications Reaction Description Data Source(s) Sulfamethoxazole 800 MG / Trimethoprim 160 MG Oral Tablet [B actrim] Bactrim DS 02/23/2021 12:00:00 AM EST ORAL active [facility] ([facility] 800-160 mg 02/23/2021 12:00:00 AM EST tablet 28 TAKE ONE TABLET BY MOUTH TWO TIMES A DAY TAKE ONE TABLET BY MOUTH TWO TIMES A DAY SOLD: 02/23/2021 [facility] 4 mg 02/15/2021 12:00:00 AM EST tablets,dose [...] DAILY DOSE = 75 UNITS SOLD: 11/11/2020 [facility] 3 ML Insulin Glargine 100 UNT/ML [...] EST 300 mg by mouth completed <td ID="MedicationRxNorm_1">041324</td><td ID="MedicationMedication_1">bupropion HCl</td><td ID="MedicationRoute_1">by mouth</td><td ID="MedicationRouteConcept_1">[id number]</td><td ID="MedicationStartDate_1">05/25/2020</td><td ID="MedicationStopDate_1">03/14/2021</td><td ID="MedicationDosageFrequency_1">once a day</td><td ID="MedicationDuration_1">90</td><td ID="MedicationFormulaStrength_1">300 mg</td><td ID="MedicationDosageForm_1">tablet extended release 24 hr</td><td ID="MedicationDosageFormCode_1"></td><td ID="MedicationDosageDescription_1"></td><td ID="MedicationMedicationId_1">[id number]</td><td ID="MedicationAccount_1">[id number]</td><td ID="MedicationNpid_1">[id number]</td><td ID="MedicationAuthorFirstName_1">Marc</td><td ID="MedicationAuthorLastName_1">Ambrocio</td><td ID="MedicationTaxonomyCode_1">[id number]</td><td ID="MedicationTaxonomyDesc_1"> Psychiatry</td><td ID="MedicationPhoneNumber_1">[phone]</td> [facility] ([facility]) 300 mg 04/23/2020 12:00:00 AM EST [...] AM EST active Misc. Devices - eCW1 ([facility]) Misc. Devices - UNK 03/01/2020 12:00:00 AM EST active Misc. Devices - eCW1 ([facility]) Misc. Devices - UNK 03/01/2020 12:00:00 AM EST active Misc. Devices - eCW1 ([facility]) Misc. Devices - UNK 03/01/2020 12:00:00 AM EST active Misc. Devices - eCW1 ([facility]) Misc. Devices - UNK 03/01/2020 12:00:00 AM EST active Misc. Devices - eCW1 ([facility]) Misc. Devices - UNK 03/01/2020 12:00:00 AM EST active Misc. Devices - eCW1 ([facility]) 500 mg 01/19/2020 12:00:00 AM EDT tablet 14 TAKE ONE TABLET BY MOUTH TWICE A DAY TAKE ONE TABLET BY MOUTH TWICE A DAY SOLD: 01/19/2020 [facility] Cephalexin 500 MG Oral Capsule CEPHALEXIN 01/16/2020 12:00:00 AM EDT capsule 20 TAKE ONE CAPSULE BY MOUTH TWICE A DAY TAKE ONE CAPSULE BY [facility] TWICE A DAY SOLD: 01/17/2020 [facility] [...] UNDER THE SKIN AT BEDTIME SOLD: 07/30/2020 [facility] Ranitidine 150 MG Oral Tablet ranitidine 150 mg tablet TAKE ONE TABLET BY MOUTH TWICE A DAY ranitidine 150 mg tablet TAKE ONE TABLET BY MOUTH TWICE A DAY completed ranitidine 150 MG Or al Tablet [facility]) 0.5 ML dulaglutide 3 MG/ML Auto-Injector [Trulicity] Trulicity 1.5 mg/0.5 mL subcutaneous pen injector Trulicity 1.5 mg/0.5 mL subcutaneous pen injector completed 0.5 ML dulaglutide 3 M G/ML Auto-Injector [Trulicity] [facility] ([facility]) Sumatriptan 50 MG Oral Tablet sumatripta n 50 mg tablet TAKE ONE TABLET BY MOUTH TWICE A DAY NEEDED sumatriptan 50 mg tablet TAKE ONE TABLET BY MOUTH TWICE A DAY NEEDED completed sumatrip ernandez 50 MG Oral Tablet [facility] ([facility]) Ciprofloxacin 500 MG Oral Tablet ciprofloxacin 500 mg tablet ciprofloxacin 500 mg tablet completed ciprofloxaci n 500 MG Oral Tablet [facility] ([facility]) Deblitane 0.35 mg tablet TAKE ONE TABLET BY MOUTH EVERY DAY [id number] completed Deblitane 0.35 mg tablet [facility] ([facility]) Amoxicillin 875 MG / Clavulanate 125 MG Oral Tablet amoxicillin 875 mg-potassium clavulanate 125 mg tablet TAKE ONE TABLET BY MOUTH TWICE A DAY amoxicillin 875 mg-potassium clavulanate 125 mg tablet TAKE ONE TABLET BY MOUTH TWICE A DAY completed amoxicillin 875 MG / c lavulanate 125 MG Oral Tablet [facility] ([facility]) dapagliflozin 10 MG Oral Tablet [Farxiga ] Farxiga 10 mg tablet TAKE ONE TABLET BY MOUTH EVERY DAY Farxiga 10 mg tablet TAKE ONE TABLET BY MOUTH EVERY DAY completed dapagliflozin 10 MG Or al Tablet [Farxiga] [facility] ([facility]) 24 HR Bupropion Hydrochloride 150 MG Ext ended Release Oral Tablet bupropion HCl XL 150 mg 24 hr tablet, extended release TAKE ONE TABLET BY MOUTH EVERY MORNING WITH 300MG bupropion HCl XL 150 mg 24 hr tablet, ex tended release TAKE ONE TABLET BY MOUTH EVERY MORNING WITH 300MG completed 24 HR bupropion hydrochloride 150 MG Extended Release Oral Tablet [facility] ([facility]) Fluconazole 150 MG Oral Tablet fluconazo le 150 mg tablet TAKE 1 TABLET BY MOUTH ONCE fluconazole 150 mg tablet TAKE 1 TABLET BY MOUTH ONCE completed fluconazole 150 MG Oral Tablet A [facility] ([facility]) 0.5 ML dulaglutide 1.5 MG/ML Auto-Inject or [Trulicity] Trulicity 0.75 mg/0.5 mL subcutaneous pen injector Trulicity 0.75 mg/0.5 mL subcutaneous pen injector completed 0.5 ML dulaglu tide 1.5 MG/ML Auto-Injector [Trulicity] [facility] ([facility]) venlafaxine 75 MG Oral Tablet venlafaxin e 75 mg tablet TAKE ONE TABLET BY MOUTH EVERY DAY WITH FOOD venlafaxine 75 mg tablet TAKE ONE TABLET BY MOUTH EVERY DAY WITH FOOD completed venlafaxine 75 MG Oral Tablet [facility] ([facility]) Clindamycin 150 MG Oral Capsule clindamy fortino HCl 150 mg capsule TAKE THREE CAPSULES BY MOUTH THREE TIMES A DAY clindamycin HCl 150 mg capsule TAKE THRE E CAPSULES BY MOUTH THREE TIMES A DAY co mpleted clindamycin 150 MG Oral Capsule [facility]) 0.5 ML dulaglutide 1.5 MG/ML Auto-Inject or [Trulicity] Trulicity 0.75 mg/0.5 mL subcutaneous pen injector Trulicity 0.75 mg/0.5 mL subcutaneous pen injector completed 0.5 ML dulaglu tide 1.5 MG/ML Auto-Injector [Trulicity] [facility]) nitrofurantoin 100 mg tablet Take by oral route. [id number] completed nitrofurantoin 100 mg tablet [facility] ([facility]) Clindamycin 150 MG Oral Capsule clindamy fortino HCl 150 mg capsule TAKE THREE CAPSULES BY MOUTH THREE TIMES A DAY clindamycin HCl 150 mg capsule TAKE THRE E CAPSULES BY MOUTH THREE TIMES A DAY co mpleted clindamycin 150 MG Oral Capsule [facility] ([facility]) Clonidine Hydrochloride 0.1 MG Oral Tabl et clonidine HCl 0.1 mg tablet TAKE ONE TABLET BY MOUTH TWICE A DAY clonidine HCl 0.1 mg tablet TAKE ONE TAB LET BY MOUTH TWICE A DAY completed c lonidine hydrochloride 0.1 MG Oral Tablet [facility] ([facility]) NITROFURANTOIN, MACROCRYSTALS 25 MG / Ni trofurantoin, Monohydrate 75 MG Oral Capsule nitrofurantoin monohydrate/macrocrystals 100 mg capsule TAKE ONE CAPSULE BY MOUTH TWICE A DAY nitrofurantoin monohydrate/macrocrystals 100 mg capsule TAKE ONE CAPSULE BY MOUTH TWICE A DAY completed nitrofurantoin, macrocrystals 25 MG / nitrofurantoin, monohydrate 75 MG Oral Capsule [facility] ([facility]) venlafaxine 75 MG Oral Tablet venlafaxin e 75 mg tablet TAKE ONE TABLET BY MOUTH EVERY DAY WITH FOOD venlafaxine 75 mg tablet TAKE ONE TABLET BY MOUTH EVERY DAY WITH FOOD completed venlafaxine 75 MG Oral Tablet [facility] ([facility]) dapagliflozin 10 MG Oral Tablet [Farxiga ] Farxiga 10 mg tablet TAKE ONE TABLET BY MOUTH EVERY DAY Farxiga 10 mg tablet TAKE ONE TABLET BY MOUTH EVERY DAY completed dapagliflozin 10 MG Or al Tablet [Farxiga] [facility] ([facility]) 24 HR Bupropion Hydrochloride 450 MG Ext ended Release Oral Tablet bupropion HCl XL 450 mg 24 hr tablet, extended release TAKE ONE TABLET BY MOUTH EVERY MORNING bupropion HCl XL 450 mg 24 hr tablet, extended release TAKE ONE TABLET BY MOUTH EVERY MORNING completed 24 HR bupropion hydrochloride 450 MG Extended Release Oral Tablet [facility] ([facility]) Famotidine 20 MG Oral Tablet famotidine 20 mg tablet TAKE ONE TABLET BY MOUTH EVERY DAY AT BEDTIME NEEDED famotidine 20 mg tablet TAKE ONE TABLET BY MOUTH EVERY DAY AT BEDTIME NEEDED complet ed famotidine 20 MG Oral Tablet [facility] ([facility]) Sumatriptan 50 MG Oral Tablet sumatripta n 50 mg tablet TAKE ONE TABLET BY MOUTH TWICE A DAY NEEDED sumatriptan 50 mg tablet TAKE ONE TABLET BY MOUTH TWICE A DAY NEEDED completed sumatrip ernandez 50 MG Oral Tablet [facility] ([facility]) Ibuprofen 200 MG Oral Capsule ibuprofen 200 mg capsule Take 1 capsule every 6 hours by oral route. ibuprofen 200 mg capsule Take 1 capsule every 6 hours by oral route. 1 capsule(s) completed ibu profen 200 MG Oral Capsule [facility] ([facility]) Ondansetron 8 MG Disintegrating Oral Tab let ondansetron 8 mg disintegrating tablet DISSOLVE 1 TABLET UNDER THE TONGUE TWO TIMES A DAY ondansetron 8 mg disintegrating tablet DISSOLVE 1 TABLET UNDER THE TONGUE TWO TIMES A DAY completed ondansetron 8 MG Dis integrating Oral Tablet [facility] ([facility]) celecoxib 100 MG Oral Capsule celecoxib 100 mg capsule celec oxib 100 mg capsule completed celecoxib 100 MG Oral Capsule [facility] ([facility]) 24 HR Bupropion Hydrochloride 150 MG Ext ended Release Oral Tablet bupropion HCl XL 150 mg 24 hr tablet, extended release TAKE ONE TABLET BY MOUTH EVERY MORNING WITH 300MG bupropion HCl XL 150 mg 24 hr tablet, ex tended release TAKE ONE TABLET BY MOUTH EVERY MORNING WITH 300MG completed 24 HR bupropion hydrochloride 150 MG Extended Release Oral Tablet [facility] ([facility]) doxycycline hyclate 100 MG Oral Capsule doxycycline hyclate 100 mg capsule TAKE ONE CAPSULE BY MOUTH TWICE A DAY doxycycline hyclate 100 mg capsule TAKE ONE CAPSULE BY MOUTH TWICE A DAY completed doxycycline hyclate 100 MG Oral Capsule [facility]) 0.5 ML dulaglutide 1.5 MG/ML Auto-Inject or [Trulicity] Trulicity 0.75 mg/0.5 mL subcutaneous pen injector INJECT 0.5ML UNDER THE SKIN ONCE WEEKLY Trulicity 0.75 mg/0.5 mL subcutaneous pen injector INJECT 0.5ML UNDER THE SKIN ONCE WEEKLY completed 0.5 ML dulaglu tide 1.5 MG/ML Auto-Injector [Trulicity] [facility] ([facility]) doxycycline hyclate 100 MG Oral Capsule doxycycline hyclate 100 mg capsule TAKE ONE CAPSULE BY MOUTH TWICE A DAY doxycycline hyclate 100 mg capsule TAKE ONE CAPSULE BY MOUTH TWICE A DAY completed doxycycline hyclate 100 MG Oral Capsule [facility] ([facility]) doxycycline hyclate 100 MG Oral Capsule doxycycline hyclate 100 mg capsule TAKE ONE CAPSULE BY MOUTH TWICE A DAY doxycycline hyclate 100 mg capsule TAKE ONE CAPSULE BY MOUTH TWICE A DAY completed doxycycline hyclate 100 MG Oral Capsule [facility] ([facility]) Deblitane 0.35 mg tablet TAKE ONE TABLET BY MOUTH EVERY DAY [id number] completed Deblitane 0.35 mg tablet [facility] ([facility]) Sucralfate 1000 MG Oral Tablet sucralfat e 1 gram tablet TAKE ONE TABLET BY MOUTH FOUR TIMES A DAY NEEDED sucralfate 1 gram tablet TAKE ONE TABLET BY MOUTH FOUR TIMES A DAY NEEDED completed sucralfate 1000 MG Oral Tablet [facility] ([facility]) Fluconazole 150 MG Oral Tablet fluconazo le 150 mg tablet TAKE 1 TABLET BY MOUTH ONCE fluconazole 150 mg tablet TAKE 1 TABLET BY MOUTH ONCE completed fluconazole 150 MG Oral Tablet A [facility] ([facility]) 24 HR Bupropion Hydrochloride 450 MG Ext ended Release Oral Tablet bupropion HCl XL 450 mg 24 hr tablet, extended release TAKE ONE TABLET BY MOUTH EVERY MORNING bupropion HCl XL 450 mg 24 hr tablet, extended release TAKE ONE TABLET BY MOUTH EVERY MORNING completed 24 HR bupropion hydrochloride 450 MG Extended Release Oral Tablet [facility] ([facility]) Ciprofloxacin 500 MG Oral Tablet ciprofloxacin 500 mg tablet ciprofloxacin 500 mg tablet completed ciprofloxaci n 500 MG Oral Tablet [facility] ([facility]) Ciprofloxacin 500 MG Oral Tablet ciprofloxacin 500 mg tablet ciprofloxacin 500 mg tablet completed ciprofloxaci n 500 MG Oral Tablet [facility] ([facility]) tramadol hydrochloride 50 MG Oral Tablet tramadol 50 m g tablet tramadol 50 mg tablet completed tramadol hydroc hloride 50 MG Oral Tablet [facility] ([facility]) Clonidine Hydrochloride 0.1 MG Oral Tabl et clonidine HCl 0.1 mg tablet TAKE ONE TABLET BY MOUTH TWICE A DAY clonidine HCl 0.1 mg tablet TAKE ONE TAB LET BY MOUTH TWICE A DAY completed c lonidine hydrochloride 0.1 MG Oral Tablet [facility] ([facility]) 24 HR Bupropion Hydrochloride 150 MG Ext ended Release Oral Tablet bupropion HCl XL 150 mg 24 hr tablet, extended release TAKE ONE TABLET BY MOUTH EVERY MORNING WITH 300MG bupropion HCl XL 150 mg 24 hr tablet, ex tended release TAKE ONE TABLET BY MOUTH EVERY MORNING WITH 300MG completed 24 HR bupropion hydrochloride 150 MG Extended Release Oral Tablet [facility] ([facility]) Cephalexin 500 MG Oral Capsule cephalexin 500 mg capsu le cephalexin 500 mg capsule completed cephalexin 500 MG Oral Capsule [facility] ([facility]) Ranitidine 150 MG Oral Tablet ranitidine 150 mg tablet TAKE ONE TABLET BY MOUTH TWICE A DAY ranitidine 150 mg tablet TAKE ONE TABLET BY MOUTH TWICE A DAY completed ranitidine 150 MG Or al Tablet [facility] ([facility]) tramadol hydrochloride 50 MG Oral Tablet tramadol 50 m g tablet tramadol 50 mg tablet completed tramadol hydroc hloride 50 MG Oral Tablet [facility] ([facility]) Deblitane 0.35 mg tablet TAKE ONE TABLET BY MOUTH EVERY DAY [id number] completed Deblitane 0.35 mg tablet [facility] ([facility]) dapagliflozin 10 MG Oral Tablet [Farxiga ] Farxiga 10 mg tablet TAKE ONE TABLET BY MOUTH EVERY DAY Farxiga 10 mg tablet TAKE ONE TABLET BY MOUTH EVERY DAY completed dapagliflozin 10 MG Or al Tablet [Farxiga] [facility] ([facility]) Ondansetron 4 MG Oral Tablet ondansetron HCl 4 mg tablet TAKE ONE TABLET BY MOUTH FOUR TIMES A DAY NEEDED ondansetron HCl 4 mg tablet TAKE ONE TAB LET BY MOUTH FOUR TIMES A DAY NEEDED compl eted ondansetron 4 MG Oral Tablet [facility] ([facility]) Famotidine 20 MG Oral Tablet famotidine 20 mg tablet TAKE ONE TABLET BY MOUTH EVERY DAY AT BEDTIME NEEDED famotidine 20 mg tablet TAKE ONE TABLET BY MOUTH EVERY DAY AT BEDTIME NEEDED complet ed famotidine 20 MG Oral Tablet [facility] ([facility]) Sulfamethoxazole 800 MG / Trimethoprim 1 60 MG Oral Tablet sulfamethoxazole 800 mg-trimethoprim 160 mg tablet TAKE ONE TABLET BY MOUTH EVERY 12 HOURS sulfamethoxazole 800 mg-trimethoprim 160 mg tablet TAKE ONE TABLET BY MOUTH EVERY 12 HOURS completed sulfamethoxazole 800 MG / trimethoprim 160 MG Oral Tablet [facility] ([facility]) Cephalexin 500 MG Oral Capsule cephalexin 500 mg capsu le cephalexin 500 mg capsule completed cephalexin 500 MG Oral Capsule [facility] ([facility]) Sucralfate 1000 MG Oral Tablet sucralfat e 1 gram tablet TAKE ONE TABLET BY MOUTH FOUR TIMES A DAY NEEDED sucralfate 1 gram tablet TAKE ONE TABLET BY MOUTH FOUR TIMES A DAY NEEDED completed sucralfate 1000 MG Oral Tablet [facility] ([facility]) Clonidine Hydrochloride 0.1 MG Oral Tabl et clonidine HCl 0.1 mg tablet TAKE ONE TABLET BY MOUTH TWICE A DAY clonidine HCl 0.1 mg tablet TAKE ONE TAB LET BY MOUTH TWICE A DAY completed c lonidine hydrochloride 0.1 MG Oral Tablet [facility] ([facility]) Clindamycin 150 MG Oral Capsule clindamy fortino HCl 150 mg capsule TAKE THREE CAPSULES BY MOUTH THREE TIMES A DAY clindamycin HCl 150 mg capsule TAKE THRE E CAPSULES BY MOUTH THREE TIMES A DAY co mpleted clindamycin 150 MG Oral Capsule [facility] ([facility]) Famotidine 20 MG Oral Tablet famotidine 20 mg tablet TAKE ONE TABLET BY MOUTH EVERY DAY AT BEDTIME NEEDED famotidine 20 mg tablet TAKE ONE TABLET BY MOUTH EVERY DAY AT BEDTIME NEEDED complet ed famotidine 20 MG Oral Tablet [facility] ([facility]) tramadol hydrochloride 50 MG Oral Tablet tramadol 50 m g tablet tramadol 50 mg tablet completed tramadol hydroc hloride 50 MG Oral Tablet [facility] ([facility]) nitrofurantoin 100 mg tablet Take by oral route. [id number] completed nitrofurantoin 100 mg tablet [facility] ([facility]) Clindamycin 150 MG Oral Capsule clindamy fortino HCl 150 mg capsule TAKE THREE CAPSULES BY MOUTH THREE TIMES A DAY clindamycin HCl 150 mg capsule TAKE THRE E CAPSULES BY MOUTH THREE TIMES A DAY co mpleted clindamycin 150 MG Oral Capsule [facility] ([facility]) Ciprofloxacin 500 MG Oral Tablet ciprofloxacin 500 mg tablet ciprofloxacin 500 mg tablet completed ciprofloxaci n 500 MG Oral Tablet [facility] ([facility]) 24 HR Bupropion Hydrochloride 150 MG Ext ended Release Oral Tablet bupropion HCl XL 150 mg 24 hr tablet, extended release TAKE ONE TABLET BY MOUTH EVERY MORNING WITH 300MG bupropion HCl XL 150 mg 24 hr tablet, ex tended release TAKE ONE TABLET BY MOUTH EVERY MORNING WITH 300MG completed 24 HR bupropion hydrochloride 150 MG Extended Release Oral Tablet [facility] ([facility]) Fluconazole 150 MG Oral Tablet fluconazo le 150 mg tablet TAKE 1 TABLET BY MOUTH ONCE fluconazole 150 mg tablet TAKE 1 TABLET BY MOUTH ONCE completed fluconazole 150 MG Oral Tablet Carmen [facility] ([facility]) venlafaxine 75 MG Oral Tablet venlafaxin e 75 mg tablet TAKE ONE TABLET BY MOUTH EVERY DAY WITH FOOD venlafaxine 75 mg tablet TAKE ONE TABLET BY MOUTH EVERY DAY WITH FOOD completed venlafaxine 75 MG Oral Tablet [facility] ([facility]) Sucralfate 1000 MG Oral Tablet sucralfat e 1 gram tablet TAKE ONE TABLET BY MOUTH FOUR TIMES A DAY NEEDED sucralfate 1 gram tablet TAKE ONE TABLET BY MOUTH FOUR TIMES A DAY NEEDED completed sucralfate 1000 MG Oral Tablet [facility] ([facility]) Sumatriptan 50 MG Oral Tablet sumatripta n 50 mg tablet TAKE ONE TABLET BY MOUTH TWICE A DAY NEEDED sumatriptan 50 mg tablet TAKE ONE TABLET BY MOUTH TWICE A DAY NEEDED completed sumatrip ernandez 50 MG Oral Tablet [facility] ([facility]) Ondansetron 4 MG Oral Tablet ondansetron HCl 4 mg tablet TAKE ONE TABLET BY MOUTH FOUR TIMES A DAY NEEDED ondansetron HCl 4 mg tablet TAKE ONE TAB LET BY MOUTH FOUR TIMES A DAY NEEDED compl eted ondansetron 4 MG Oral Tablet [facility] ([facility]) venlafaxine 75 MG Oral Tablet venlafaxin e 75 mg tablet TAKE ONE TABLET BY MOUTH EVERY DAY WITH FOOD venlafaxine 75 mg tablet TAKE ONE TABLET BY MOUTH EVERY DAY WITH FOOD completed venlafaxine 75 MG Oral Tablet [facility] ([facility]) doxycycline hyclate 100 MG Oral Capsule doxycycline hyclate 100 mg capsule TAKE ONE CAPSULE BY MOUTH TWICE A DAY doxycycline hyclate 100 mg capsule TAKE ONE CAPSULE BY MOUTH TWICE A DAY completed doxycycline hyclate 100 MG Oral Capsule [facility] ([facility]) 0.5 ML dulaglutide 3 MG/ML Auto-Injector [Trulicity] Trulicity 1.5 mg/0.5 mL subcutaneous pen injector Trulicity 1.5 mg/0.5 mL subcutaneous pen injector completed 0.5 ML dulaglutide 3 M G/ML Auto-Injector [Trulicity] [facility]) Deblitane 0.35 mg tablet TAKE ONE TABLET BY MOUTH EVERY DAY [id number] completed Deblitane 0.35 mg tablet [facility] ([facility]) 0.5 ML dulaglutide 3 MG/ML Auto-Injector [Trulicity] Trulicity 1.5 mg/0.5 mL subcutaneous pen injector Elmer 1.5 mg/0.5 mL subcutaneous pen injector completed 0.5 ML dulaglutide 3 M G/ML Auto-Injector [Elmer] [facility] ([facility]) venlafaxine 75 MG Oral Tablet venlafaxin e 75 mg tablet TAKE ONE TABLET BY MOUTH EVERY DAY WITH FOOD venlafaxine 75 mg tablet TAKE ONE TABLET BY MOUTH EVERY DAY WITH FOOD completed venlafaxine 75 MG Oral Tablet [facility] ([facility]) tramadol hydrochloride 50 MG Oral Tablet tramadol 50 m g tablet tramadol 50 mg tablet completed tramadol hydroc hloride 50 MG Oral Tablet [facility] ([facility]) doxycycline hyclate 100 MG Oral Capsule doxycycline hyclate 100 mg capsule TAKE ONE CAPSULE BY MOUTH TWICE A DAY doxycycline hyclate 100 mg capsule TAKE ONE CAPSULE BY MOUTH TWICE A DAY completed doxycycline hyclate 100 MG Oral Capsule [place] ([facility]) pantoprazole 40 MG Delayed Release Oral Tablet pantoprazole 40 mg tablet,delayed release pantoprazole 40 mg tablet,delayed release completed pantoprazole 40 MG Delayed Release Oral Tablet [place] ([facility]) Sumatriptan 50 MG Oral Tablet sumatripta n 50 mg tablet TAKE ONE TABLET BY MOUTH TWICE A DAY NEEDED sumatriptan 50 mg tablet TAKE ONE TABLET BY MOUTH TWICE A DAY NEEDED completed sumatrip ernandez 50 MG Oral Tablet [facility]) 24 HR Bupropion Hydrochloride 450 MG Ext ended Release Oral Tablet bupropion HCl XL 450 mg 24 hr tablet, extended release TAKE ONE TABLET BY MOUTH EVERY MORNING bupropion HCl XL 450 mg 24 hr tablet, extended release TAKE ONE TABLET BY MOUTH EVERY MORNING completed 24 HR bupropion hydrochloride 450 MG Extended Release Oral Tablet [place] ([facility]) Sumatriptan 50 MG Oral Tablet sumatripta n 50 mg tablet TAKE ONE TABLET BY MOUTH TWICE A DAY NEEDED sumatriptan 50 mg tablet TAKE ONE TABLET BY MOUTH TWICE A DAY NEEDED completed sumatrip ernandez 50 MG Oral Tablet [facility]) Fluconazole 150 MG Oral Tablet fluconazo le 150 mg tablet TAKE 1 TABLET BY MOUTH ONCE fluconazole 150 mg tablet TAKE 1 TABLET BY MOUTH ONCE completed fluconazole 150 MG Oral Tablet Carmen THEN ([facility]) 24 HR Bupropion Hydrochloride 150 MG Ext ended Release Oral Tablet bupropion HCl XL 150 mg 24 hr tablet, extended release TAKE ONE TABLET BY MOUTH EVERY MORNING WITH 300MG bupropion HCl XL 150 mg 24 hr tablet, ex tended release TAKE ONE TABLET BY MOUTH EVERY MORNING WITH 300MG completed 24 HR bupropion hydrochloride 150 MG Extended Release Oral Tablet [place] ([facility]) Cephalexin 500 MG Oral Capsule cephalexin 500 mg capsu le cephalexin 500 mg capsule completed cephalexin 500 MG Oral Capsule [place] ([facility]) Sulfamethoxazole 800 MG / Trimethoprim 1 60 MG Oral Tablet sulfamethoxazole 800 mg-trimethoprim 160 mg tablet TAKE ONE TABLET BY MOUTH EVERY 12 HOURS sulfamethoxazole 800 mg-trimethoprim 160 mg tablet TAKE ONE TABLET BY MOUTH EVERY 12 HOURS completed sulfamethoxazole 800 MG / trimethoprim 160 MG Oral Tablet [place] ([facility]) Famotidine 20 MG Oral Tablet famotidine 20 mg tablet TAKE ONE TABLET BY MOUTH EVERY DAY AT BEDTIME NEEDED famotidine 20 mg tablet TAKE ONE TABLET BY MOUTH EVERY DAY AT BEDTIME NEEDED complet ed famotidine 20 MG Oral Tablet [place] ([facility]) dapagliflozin 10 MG Oral Tablet [Farxiga ] Farxiga 10 mg tablet TAKE ONE TABLET BY MOUTH EVERY DAY Farxiga 10 mg tablet TAKE ONE TABLET BY MOUTH EVERY DAY completed dapagliflozin 10 MG Or al Tablet [Farxiga] [place] ([facility]) 24 HR Bupropion Hydrochloride 450 MG Ext ended Release Oral Tablet bupropion HCl XL 450 mg 24 hr tablet, extended release TAKE ONE TABLET BY MOUTH EVERY MORNING bupropion HCl XL 450 mg 24 hr tablet, extended release TAKE ONE TABLET BY MOUTH EVERY MORNING completed 24 HR bupropion hydrochloride 450 MG Extended Release Oral Tablet [place] ([facility]) Ranitidine 150 MG Oral Tablet ranitidine 150 mg tablet TAKE ONE TABLET BY MOUTH TWICE A DAY ranitidine 150 mg tablet TAKE ONE TABLET BY MOUTH TWICE A DAY completed ranitidine 150 MG Or al Tablet [place] ([facility]) tramadol hydrochloride 50 MG Oral Tablet tramadol 50 m g tablet tramadol 50 mg tablet completed tramadol hydroc hloride 50 MG Oral Tablet [place] ([facility]) Prazosin 1 MG Oral Capsule prazosin 1 mg capsule TAKE 1 CAPSULE BY MOUTH EVERY NIGHT NEEDED FOR [employer]OCI[employer] WITH PTSD prazosin 1 mg capsule TAKE 1 CAPSULE BY MOUTH EVERY NIGHT NEEDED FOR N[employer]OCI[employer] WITH PTSD completed prazosin 1 MG Oral Cap lora [facility] ([facility]) Deblitane 0.35 mg tablet TAKE ONE TABLET BY MOUTH EVERY DAY [id number] completed Deblitane 0.35 mg tablet [place] ([facility]) Cephalexin 500 MG Oral Capsule cephalexin 500 mg capsu le cephalexin 500 mg capsule completed cephalexin 500 MG Oral Capsule [facility] ([facility]) Cephalexin 500 MG Oral Capsule cephalexin 500 mg capsu le cephalexin 500 mg capsule completed cephalexin 500 MG Oral Capsule [place] ([facility]) Fluconazole 150 MG Oral Tablet fluconazo le 150 mg tablet TAKE 1 TABLET BY MOUTH ONCE fluconazole 150 mg tablet TAKE 1 TABLET BY MOUTH ONCE completed fluconazole 150 MG Oral Tablet Carmen RICKS ([facility]) Sucralfate 1000 MG Oral Tablet sucralfat e 1 gram tablet TAKE ONE TABLET BY MOUTH FOUR TIMES A DAY NEEDED sucralfate 1 gram tablet TAKE ONE TABLET BY MOUTH FOUR TIMES A DAY NEEDED completed sucralfate 1000 MG Oral Tablet [place] ([facility]) NITROFURANTOIN, MACROCRYSTALS 25 MG / Ni trofurantoin, Monohydrate 75 MG Oral Capsule nitrofurantoin monohydrate/macrocrystals 100 mg capsule TAKE ONE CAPSULE BY MOUTH TWICE A DAY nitrofurantoin monohydrate/macrocrystals 100 mg capsule TAKE ONE CAPSULE BY MOUTH TWICE A DAY completed nitrofurantoin, macrocrystals 25 MG / nitrofurantoin, monohydrate 75 MG Oral Capsule [place] ([facility]) dapagliflozin 10 MG Oral Tablet [Farxiga ] Farxiga 10 mg tablet TAKE ONE TABLET BY MOUTH EVERY DAY Farxiga 10 mg tablet TAKE ONE TABLET BY MOUTH EVERY DAY completed dapagliflozin 10 MG Or al Tablet [Farxiga] [facility] ([facility]) Clonidine Hydrochloride 0.1 MG Oral Tabl et clonidine HCl 0.1 mg tablet TAKE ONE TABLET BY MOUTH TWICE A DAY clonidine HCl 0.1 mg tablet TAKE ONE TAB LET BY MOUTH TWICE A DAY completed c lonidine hydrochloride 0.1 MG Oral Tablet [facility] ([facility]) 0.5 ML dulaglutide 1.5 MG/ML Auto-Inject or [Trulicity] Trulicity 0.75 mg/0.5 mL subcutaneous pen injector Trulicity 0.75 mg/0.5 mL subcutaneous pen injector completed 0.5 ML dulaglu tide 1.5 MG/ML Auto-Injector [Trulicity] [place] ([facility]) Deblitane 0.35 mg tablet TAKE ONE TABLET BY MOUTH EVERY DAY [id number] completed Deblitane 0.35 mg tablet [place] ([facility]) Cephalexin 500 MG Oral Capsule cephalexin 500 mg capsu le cephalexin 500 mg capsule completed cephalexin 500 MG Oral Capsule [place] ([facility]) Amoxicillin 875 MG / Clavulanate 125 MG Oral Tablet amoxicillin 875 mg-potassium clavulanate 125 mg tablet TAKE ONE TABLET BY MOUTH TWICE A DAY amoxicillin 875 mg-potassium clavulanate 125 mg tablet TAKE ONE TABLET BY MOUTH TWICE A DAY completed amoxicillin 875 MG / c lavulanate 125 MG Oral Tablet [place] ([facility]) 24 HR Bupropion Hydrochloride 150 MG Ext ended Release Oral Tablet bupropion HCl XL 150 mg 24 hr tablet, extended release TAKE ONE TABLET BY MOUTH EVERY MORNING WITH 300MG bupropion HCl XL 150 mg 24 hr tablet, ex tended release TAKE ONE TABLET BY MOUTH EVERY MORNING WITH 300MG completed 24 HR bupropion hydrochloride 150 MG Extended Release Oral Tablet [place] ([facility]) Clonidine Hydrochloride 0.1 MG Oral Tabl et clonidine HCl 0.1 mg tablet TAKE ONE TABLET BY MOUTH TWICE A DAY clonidine HCl 0.1 mg tablet TAKE ONE TAB LET BY MOUTH TWICE A DAY completed c lonidine hydrochloride 0.1 MG Oral Tablet [facility]) 0.5 ML dulaglutide 3 MG/ML Auto-Injector [Trulicity] Trulicity 1.5 mg/0.5 mL subcutaneous pen injector Trulicity 1.5 mg/0.5 mL subcutaneous pen injector completed 0.5 ML dulaglutide 3 M G/ML Auto-Injector [Trulicity] [facility]) 0.5 ML dulaglutide 1.5 MG/ML Auto-Inject or [Trulicity] Trulicity 0.75 mg/0.5 mL subcutaneous pen injector INJECT 0.5ML UNDER THE SKIN ONCE WEEKLY Trulicity 0.75 mg/0.5 mL subcutaneous pen injector INJECT 0.5ML UNDER THE SKIN ONCE WEEKLY completed 0.5 ML dulaglu tide 1.5 MG/ML Auto-Injector [Trulicity] [facility] ([facility]) Famotidine 20 MG Oral Tablet famotidine 20 mg tablet TAKE ONE TABLET BY MOUTH EVERY DAY AT BEDTIME NEEDED famotidine 20 mg tablet TAKE ONE TABLET BY MOUTH EVERY DAY AT BEDTIME NEEDED complet ed famotidine 20 MG Oral Tablet [place] ([facility]) Sucralfate 1000 MG Oral Tablet sucralfat e 1 gram tablet TAKE ONE TABLET BY MOUTH FOUR TIMES A DAY NEEDED sucralfate 1 gram tablet TAKE ONE TABLET BY MOUTH FOUR TIMES A DAY NEEDED completed sucralfate 1000 MG Oral Tablet [place] ([facility]) celecoxib 100 MG Oral Capsule celecoxib 100 mg capsule celec oxib 100 mg capsule completed celecoxib 100 MG Oral Capsule [place] ([facility]) doxycycline hyclate 100 MG Oral Capsule doxycycline hyclate 100 mg capsule TAKE ONE CAPSULE BY MOUTH TWICE A DAY doxycycline hyclate 100 mg capsule TAKE ONE CAPSULE BY MOUTH TWICE A DAY completed doxycycline hyclate 100 MG Oral Capsule [facility] ([facility]) Ondansetron 4 MG Oral Tablet ondansetron HCl 4 mg tablet TAKE ONE TABLET BY MOUTH FOUR TIMES A DAY NEEDED ondansetron HCl 4 mg tablet TAKE ONE TAB LET BY MOUTH FOUR TIMES A DAY NEEDED compl eted ondansetron 4 MG Oral Tablet [place] ([facility]) Sucralfate 1000 MG Oral Tablet sucralfat e 1 gram tablet TAKE ONE TABLET BY MOUTH FOUR TIMES A DAY NEEDED sucralfate 1 gram tablet TAKE ONE TABLET BY MOUTH FOUR TIMES A DAY NEEDED completed sucralfate 1000 MG Oral Tablet [facility] ([facility]) Clindamycin 150 MG Oral Capsule clindamy fortino HCl 150 mg capsule TAKE THREE CAPSULES BY MOUTH THREE TIMES A DAY clindamycin HCl 150 mg capsule TAKE THRE E CAPSULES BY MOUTH THREE TIMES A DAY co mpleted clindamycin 150 MG Oral Capsule [facility] ([facility]) venlafaxine 75 MG Oral Tablet venlafaxin e 75 mg tablet TAKE ONE TABLET BY MOUTH EVERY DAY WITH FOOD venlafaxine 75 mg tablet TAKE ONE TABLET BY MOUTH EVERY DAY WITH FOOD completed venlafaxine 75 MG Oral Tablet [facility] ([facility]) Amoxicillin 875 MG / Clavulanate 125 MG Oral Tablet amoxicillin 875 mg-potassium clavulanate 125 mg tablet TAKE ONE TABLET BY MOUTH TWICE A DAY amoxicillin 875 mg-potassium clavulanate 125 mg tablet TAKE ONE TABLET BY MOUTH TWICE A DAY completed amoxicillin 875 MG / c lavulanate 125 MG Oral Tablet [facility] ([facility]) Famotidine 20 MG Oral Tablet famotidine 20 mg tablet TAKE ONE TABLET BY MOUTH EVERY DAY AT BEDTIME NEEDED famotidine 20 mg tablet TAKE ONE TABLET BY MOUTH EVERY DAY AT BEDTIME NEEDED complet ed famotidine 20 MG Oral Tablet [facility] ([facility]) Ondansetron 8 MG Disintegrating Oral Tab let ondansetron 8 mg disintegrating tablet DISSOLVE 1 TABLET UNDER THE TONGUE TWO TIMES A DAY ondansetron 8 mg disintegrating tablet DISSOLVE 1 TABLET UNDER THE TONGUE TWO TIMES A DAY completed ondansetron 8 MG Dis integrating Oral Tablet [place] ([facility]) celecoxib 100 MG Oral Capsule celecoxib 100 mg capsule celec oxib 100 mg capsule completed celecoxib 100 MG Oral Capsule [facility] ([facility]) Ranitidine 150 MG Oral Tablet ranitidine 150 mg tablet TAKE ONE TABLET BY MOUTH TWICE A DAY ranitidine 150 mg tablet TAKE ONE TABLET BY MOUTH TWICE A DAY completed ranitidine 150 MG Or al Tablet [place] ([facility]) Sumatriptan 50 MG Oral Tablet sumatripta n 50 mg tablet TAKE ONE TABLET BY MOUTH TWICE A DAY NEEDED sumatriptan 50 mg tablet TAKE ONE TABLET BY MOUTH TWICE A DAY NEEDED completed sumatrip ernandez 50 MG Oral Tablet [facility] ([facility]) Deblitane 0.35 mg tablet TAKE ONE TABLET BY MOUTH EVERY DAY [id number] completed Deblitane 0.35 mg tablet [place] ([facility]) NITROFURANTOIN, MACROCRYSTALS 25 MG / Ni trofurantoin, Monohydrate 75 MG Oral Capsule nitrofurantoin monohydrate/macrocrystals 100 mg capsule TAKE ONE CAPSULE BY MOUTH TWICE A DAY nitrofurantoin monohydrate/macrocrystals 100 mg capsule TAKE ONE CAPSULE BY MOUTH TWICE A DAY completed nitrofurantoin, macrocrystals 25 MG / nitrofurantoin, monohydrate 75 MG Oral Capsule [facility] ([facility]) 0.5 ML dulaglutide 1.5 MG/ML Auto-Inject or [Trulicity] Trulicity 0.75 mg/0.5 mL subcutaneous pen injector INJECT 0.5ML UNDER THE SKIN ONCE WEEKLY Trulicity 0.75 mg/0.5 mL subcutaneous pen injector INJECT 0.5ML UNDER THE SKIN ONCE WEEKLY completed 0.5 ML dulaglu tide 1.5 MG/ML Auto-Injector [Trulicity] [place] ([facility]) Cephalexin 500 MG Oral Capsule cephalexin 500 mg capsu le cephalexin 500 mg capsule completed cephalexin 500 MG Oral Capsule [place] ([facility]) Sulfamethoxazole 800 MG / Trimethoprim 1 60 MG Oral Tablet sulfamethoxazole 800 mg-trimethoprim 160 mg tablet TAKE ONE TABLET BY MOUTH EVERY 12 HOURS sulfamethoxazole 800 mg-trimethoprim 160 mg tablet TAKE ONE TABLET BY MOUTH EVERY 12 HOURS completed sulfamethoxazole 800 MG / trimethoprim 160 MG Oral Tablet [place] ([facility]) NITROFURANTOIN, MACROCRYSTALS 25 MG / Ni trofurantoin, Monohydrate 75 MG Oral Capsule nitrofurantoin monohydrate/macrocrystals 100 mg capsule TAKE ONE CAPSULE BY MOUTH TWICE A DAY nitrofurantoin monohydrate/macrocrystals 100 mg capsule TAKE ONE CAPSULE BY MOUTH TWICE A DAY completed nitrofurantoin, macrocrystals 25 MG / nitrofurantoin, monohydrate 75 MG Oral Capsule [place] ([facility]) Prazosin 1 MG Oral Capsule prazosin 1 mg capsule TAKE 1 CAPSULE BY MOUTH EVERY NIGHT NEEDED FOR [employer] WITH PTSD prazosin 1 mg capsule TAKE 1 CAPSULE BY MOUTH EVERY NIGHT NEEDED FOR N[employer]OC[employer] WITH PTSD completed prazosin 1 MG Oral Cap lora [place] ([facility]) Deblitane 0.35 mg tablet TAKE ONE TABLET BY MOUTH EVERY DAY [id number] completed Deblitane 0.35 mg tablet [place] ([facility]) Trulicity 3 mg/0.5 mL subcutaneous pen injector [id number] completed 0.5 ML dulaglutide 6 MG/ML Auto-Injector [Trulicity] Carmen ANDRADE ([facility]) Clonidine Hydrochloride 0.1 MG Oral Tabl et clonidine HCl 0.1 mg tablet TAKE ONE TABLET BY MOUTH TWICE A DAY clonidine HCl 0.1 mg tablet TAKE ONE TAB LET BY MOUTH TWICE A DAY completed c lonidine hydrochloride 0.1 MG Oral Tablet [facility] ([facility]) Famotidine 20 MG Oral Tablet famotidine 20 mg tablet TAKE ONE TABLET BY MOUTH EVERY DAY AT BEDTIME NEEDED famotidine 20 mg tablet TAKE ONE TABLET BY MOUTH EVERY DAY AT BEDTIME NEEDED complet ed famotidine 20 MG Oral Tablet [facility] ([facility]) Cephalexin 500 MG Oral Capsule cephalexin 500 mg capsu le cephalexin 500 mg capsule completed cephalexin 500 MG Oral Capsule [facility] ([facility]) Sumatriptan 50 MG Oral Tablet sumatripta n 50 mg tablet TAKE ONE TABLET BY MOUTH TWICE A DAY NEEDED sumatriptan 50 mg tablet TAKE ONE TABLET BY MOUTH TWICE A DAY NEEDED completed sumatrip ernandez 50 MG Oral Tablet [facility] ([facility]) 24 HR Bupropion Hydrochloride 450 MG Ext ended Release Oral Tablet bupropion HCl XL 450 mg 24 hr tablet, extended release TAKE ONE TABLET BY MOUTH EVERY MORNING bupropion HCl XL 450 mg 24 hr tablet, extended release TAKE ONE TABLET BY MOUTH EVERY MORNING completed 24 HR bupropion hydrochloride 450 MG Extended Release Oral Tablet [facility] ([facility]) Sucralfate 1000 MG Oral Tablet sucralfat e 1 gram tablet TAKE ONE TABLET BY MOUTH FOUR TIMES A DAY NEEDED sucralfate 1 gram tablet TAKE ONE TABLET BY MOUTH FOUR TIMES A DAY NEEDED completed sucralfate 1000 MG Oral Tablet [facility] ([facility]) doxycycline hyclate 100 MG Oral Capsule doxycycline hyclate 100 mg capsule TAKE ONE CAPSULE BY MOUTH TWICE A DAY doxycycline hyclate 100 mg capsule TAKE ONE CAPSULE BY MOUTH TWICE A DAY completed doxycycline hyclate 100 MG Oral Capsule [facility] ([facility]) Amoxicillin 875 MG / Clavulanate 125 MG Oral Tablet amoxicillin 875 mg-potassium clavulanate 125 mg tablet TAKE ONE TABLET BY MOUTH TWICE A DAY amoxicillin 875 mg-potassium clavulanate 125 mg tablet TAKE ONE TABLET BY MOUTH TWICE A DAY completed amoxicillin 875 MG / c lavulanate 125 MG Oral Tablet [facility] ([facility]) Fluconazole 150 MG Oral Tablet fluconazo le 150 mg tablet TAKE 1 TABLET BY MOUTH ONCE fluconazole 150 mg tablet TAKE 1 TABLET BY MOUTH ONCE completed fluconazole 150 MG Oral Tablet Carmen RICKS ([facility]) pantoprazole 40 MG Delayed Release Oral Tablet pantoprazole 40 mg tablet,delayed release pantoprazole 40 mg tablet,delayed release completed pantoprazole 40 MG Delayed Release Oral Tablet [facility] ([facility]) Cephalexin 500 MG Oral Capsule cephalexin 500 mg capsu le cephalexin 500 mg capsule completed cephalexin 500 MG Oral Capsule [place] ([facility]) Ondansetron 4 MG Oral Tablet ondansetron HCl 4 mg tablet TAKE ONE TABLET BY MOUTH FOUR TIMES A DAY NEEDED ondansetron HCl 4 mg tablet TAKE ONE TAB LET BY MOUTH FOUR TIMES A DAY NEEDED compl eted ondansetron 4 MG Oral Tablet [facility] ([facility]) Sumatriptan 50 MG Oral Tablet sumatripta n 50 mg tablet TAKE ONE TABLET BY MOUTH TWICE A DAY NEEDED sumatriptan 50 mg tablet TAKE ONE TABLET BY MOUTH TWICE A DAY NEEDED completed sumatrip ernandez 50 MG Oral Tablet [place] ([facility]) tramadol hydrochloride 50 MG Oral Tablet tramadol 50 m g tablet tramadol 50 mg tablet completed tramadol hydroc hloride 50 MG Oral Tablet [facility] ([facility]) 0.5 ML dulaglutide 3 MG/ML Auto-Injector [Trulicity] Trulicity 1.5 mg/0.5 mL subcutaneous pen injector Trulicity 1.5 mg/0.5 mL subcutaneous pen injector completed 0.5 ML dulaglutide 3 M G/ML Auto-Injector [Trulicity] [place] ([facility]) Fluconazole 150 MG Oral Tablet fluconazo le 150 mg tablet TAKE 1 TABLET BY MOUTH ONCE fluconazole 150 mg tablet TAKE 1 TABLET BY MOUTH ONCE completed fluconazole 150 MG Oral Tablet A [facility] ([facility]) Deblitane 0.35 mg tablet TAKE ONE TABLET BY MOUTH EVERY DAY [id number] completed Deblitane 0.35 mg tablet [facility] ([facility]) Deblitane 0.35 mg tablet TAKE ONE TABLET BY MOUTH EVERY DAY [id number] completed Deblitane 0.35 mg tablet [place] ([facility]) Prazosin 1 MG Oral Capsule prazosin 1 mg capsule TAKE 1 CAPSULE BY MOUTH EVERY NIGHT NEEDED FOR [employer] WITH PTSD prazosin 1 mg capsule TAKE 1 CAPSULE BY MOUTH EVERY NIGHT NEEDED FOR N[employer]OCI[employer] WITH PTSD completed prazosin 1 MG Oral Cap lora [facility] ([facility]) Amoxicillin 875 MG / Clavulanate 125 MG Oral Tablet amoxicillin 875 mg-potassium clavulanate 125 mg tablet TAKE ONE TABLET BY MOUTH TWICE A DAY amoxicillin 875 mg-potassium clavulanate 125 mg tablet TAKE ONE TABLET BY MOUTH TWICE A DAY completed amoxicillin 875 MG / c lavulanate 125 MG Oral Tablet [facility] ([facility]) Prazosin 1 MG Oral Capsule prazosin 1 mg capsule TAKE 1 CAPSULE BY MOUTH EVERY NIGHT NEEDED FOR N[employer] ASSOCI[employer] WITH PTSD prazosin 1 mg capsule TAKE 1 CAPSULE BY MOUTH EVERY NIGHT NEEDED FOR N[employer]OCI[employer] WITH PTSD completed prazosin 1 MG Oral Cap lora [facility] ([facility]) pantoprazole 40 MG Delayed Release Oral Tablet pantoprazole 40 mg tablet,delayed release pantoprazole 40 mg tablet,delayed release completed pantoprazole 40 MG Delayed Release Oral Tablet [place] ([facility]) Cephalexin 500 MG Oral Capsule cephalexin 500 mg capsu le cephalexin 500 mg capsule completed cephalexin 500 MG Oral Capsule [place] ([facility]) Ciprofloxacin 500 MG Oral Tablet ciprofloxacin 500 mg tablet ciprofloxacin 500 mg tablet completed ciprofloxaci n 500 MG Oral Tablet [facility] ([facility]) 24 HR Bupropion Hydrochloride 150 MG Ext ended Release Oral Tablet bupropion HCl XL 150 mg 24 hr tablet, extended release TAKE ONE TABLET BY MOUTH EVERY MORNING WITH 300MG bupropion HCl XL 150 mg 24 hr tablet, ex tended release TAKE ONE TABLET BY MOUTH EVERY MORNING WITH 300MG completed 24 HR bupropion hydrochloride 150 MG Extended Release Oral Tablet [facility] ([facility]) Amoxicillin 875 MG / Clavulanate 125 MG Oral Tablet amoxicillin 875 mg-potassium clavulanate 125 mg tablet TAKE ONE TABLET BY MOUTH TWICE A DAY amoxicillin 875 mg-potassium clavulanate 125 mg tablet TAKE ONE TABLET BY MOUTH TWICE A DAY completed amoxicillin 875 MG / c lavulanate 125 MG Oral Tablet [facility] ([facility]) Ciprofloxacin 500 MG Oral Tablet ciprofloxacin 500 mg tablet ciprofloxacin 500 mg tablet completed ciprofloxaci n 500 MG Oral Tablet [facility] ([facility]) doxycycline hyclate 100 MG Oral Capsule doxycycline hyclate 100 mg capsule TAKE ONE CAPSULE BY MOUTH TWICE A DAY doxycycline hyclate 100 mg capsule TAKE ONE CAPSULE BY MOUTH TWICE A DAY completed doxycycline hyclate 100 MG Oral Capsule [facility] ([facility]) Fluconazole 150 MG Oral Tablet fluconazo le 150 mg tablet TAKE 1 TABLET BY MOUTH ONCE fluconazole 150 mg tablet TAKE 1 TABLET BY MOUTH ONCE completed fluconazole 150 MG Oral Tablet A [facility] ([facility]) 0.5 ML dulaglutide 1.5 MG/ML Auto-Inject or [Trulicity] Trulicity 0.75 mg/0.5 mL subcutaneous pen injector Trulicity 0.75 mg/0.5 mL subcutaneous pen injector completed 0.5 ML dulaglu tide 1.5 MG/ML Auto-Injector [Trulicity] [facility] ([facility]) nitrofurantoin 100 mg tablet Take by oral route. [id number] completed nitrofurantoin 100 mg tablet [facility] ([facility]) Sucralfate 1000 MG Oral Tablet sucralfat e 1 gram tablet TAKE ONE TABLET BY MOUTH FOUR TIMES A DAY NEEDED sucralfate 1 gram tablet TAKE ONE TABLET BY MOUTH FOUR TIMES A DAY NEEDED completed sucralfate 1000 MG Oral Tablet [facility] ([facility]) Sumatriptan 50 MG Oral Tablet sumatripta n 50 mg tablet TAKE ONE TABLET BY MOUTH TWICE A DAY NEEDED sumatriptan 50 mg tablet TAKE ONE TABLET BY MOUTH TWICE A DAY NEEDED completed sumatrip ernandez 50 MG Oral Tablet [facility] ([facility]) Clonidine Hydrochloride 0.1 MG Oral Tabl et clonidine HCl 0.1 mg tablet TAKE ONE TABLET BY MOUTH TWICE A DAY clonidine HCl 0.1 mg tablet TAKE ONE TAB LET BY MOUTH TWICE A DAY completed c lonidine hydrochloride 0.1 MG Oral Tablet [facility] ([facility]) Ranitidine 150 MG Oral Tablet ranitidine 150 mg tablet TAKE ONE TABLET BY MOUTH TWICE A DAY ranitidine 150 mg tablet TAKE ONE TABLET BY MOUTH TWICE A DAY completed ranitidine 150 MG Or al Tablet [facility] ([facility]) Ibuprofen 200 MG Oral Capsule ibuprofen 200 mg capsule Take 1 capsule every 6 hours by oral route. ibuprofen 200 mg capsule Take 1 capsule every 6 hours by oral route. 1 capsule(s) completed ibu profen 200 MG Oral Capsule [place] ([facility]) 0.5 ML dulaglutide 3 MG/ML Auto-Injector [Trulicity] Trulicity 1.5 mg/0.5 mL subcutaneous pen injector INJECT ONE PEN UNDER THE SKIN ONCE WEEKLY Trulicity 1.5 mg/0.5 mL subcutaneous pen injector INJECT ONE PEN UNDER THE SKIN ONCE WEEKLY completed 0.5 ML dulaglutide 3 MG/ML Auto-Injector [Trulicity] [facility] ([facility]) Clindamycin 150 MG Oral Capsule clindamy fortino HCl 150 mg capsule TAKE THREE CAPSULES BY MOUTH THREE TIMES A DAY clindamycin HCl 150 mg capsule TAKE THRE E CAPSULES BY MOUTH THREE TIMES A DAY co mpleted clindamycin 150 MG Oral Capsule [facility] ([facility]) doxycycline hyclate 100 MG Oral Capsule doxycycline hyclate 100 mg capsule TAKE ONE CAPSULE BY MOUTH TWICE A DAY doxycycline hyclate 100 mg capsule TAKE ONE CAPSULE BY MOUTH TWICE A DAY completed doxycycline hyclate 100 MG Oral Capsule [place] ([facility]) nitrofurantoin 100 mg tablet Take by oral route. [id number] completed nitrofurantoin 100 mg tablet [place] ([facility]) dapagliflozin 10 MG Oral Tablet [Farxiga ] Farxiga 10 mg tablet TAKE ONE TABLET BY MOUTH EVERY DAY Farxiga 10 mg tablet TAKE ONE TABLET BY MOUTH EVERY DAY completed dapagliflozin 10 MG Or al Tablet [Farxiga] [place] ([facility]) Deblitane 0.35 mg tablet TAKE ONE TABLET BY MOUTH EVERY DAY [id number] completed Deblitane 0.35 mg tablet [place] ([facility]) 24 HR Bupropion Hydrochloride 450 MG Ext ended Release Oral Tablet bupropion HCl XL 450 mg 24 hr tablet, extended release TAKE ONE TABLET BY MOUTH EVERY MORNING bupropion HCl XL 450 mg 24 hr tablet, extended release TAKE ONE TABLET BY MOUTH EVERY MORNING completed 24 HR bupropion hydrochloride 450 MG Extended Release Oral Tablet TONEY ([facility]) Sucralfate 1000 MG Oral Tablet sucralfat e 1 gram tablet TAKE ONE TABLET BY MOUTH FOUR TIMES A DAY NEEDED sucralfate 1 gram tablet TAKE ONE TABLET BY MOUTH FOUR TIMES A DAY NEEDED completed sucralfate 1000 MG Oral Tablet TONEY ([facility]) Ciprofloxacin 500 MG Oral Tablet ciprofloxacin 500 mg tablet ciprofloxacin 500 mg tablet completed ciprofloxaci n 500 MG Oral Tablet [place] ([facility]) Ondansetron 4 MG Oral Tablet ondansetron HCl 4 mg tablet TAKE ONE TABLET BY MOUTH FOUR TIMES A DAY NEEDED ondansetron HCl 4 mg tablet TAKE ONE TAB LET BY MOUTH FOUR TIMES A DAY NEEDED compl eted ondansetron 4 MG Oral Tablet TONEY ([facility]) 0.5 ML dulaglutide 1.5 MG/ML Auto-Inject or [Trulicity] Trulicity 0.75 mg/0.5 mL subcutaneous pen injector INJECT 0.5ML UNDER THE SKIN ONCE WEEKLY Trulicity 0.75 mg/0.5 mL subcutaneous pen injector INJECT 0.5ML UNDER THE SKIN ONCE WEEKLY completed 0.5 ML dulaglu tide 1.5 MG/ML Auto-Injector [Trulicity] TONEY ([facility]) Famotidine 20 MG Oral Tablet famotidine 20 mg tablet TAKE ONE TABLET BY MOUTH EVERY DAY AT BEDTIME NEEDED famotidine 20 mg tablet TAKE ONE TABLET BY MOUTH EVERY DAY AT BEDTIME NEEDED complet ed famotidine 20 MG Oral Tablet TONEY ([facility]) Deblitane 0.35 mg tablet TAKE ONE TABLET BY MOUTH EVERY DAY [id number] completed Deblitane 0.35 mg tablet [place] ([facility]) Sulfamethoxazole 800 MG / Trimethoprim 1 60 MG Oral Tablet sulfamethoxazole 800 mg-trimethoprim 160 mg tablet TAKE ONE TABLET BY MOUTH EVERY 12 HOURS sulfamethoxazole 800 mg-trimethoprim 160 mg tablet TAKE ONE TABLET BY MOUTH EVERY 12 HOURS completed sulfamethoxazole 800 MG / trimethoprim 160 MG Oral Tablet TONEY ([facility]) Clonidine Hydrochloride 0.1 MG Oral Tabl et clonidine HCl 0.1 mg tablet TAKE ONE TABLET BY MOUTH TWICE A DAY clonidine HCl 0.1 mg tablet TAKE ONE TAB LET BY MOUTH TWICE A DAY completed c lonidine hydrochloride 0.1 MG Oral Tablet TONEY ([facility]) Fluconazole 150 MG Oral Tablet fluconazo le 150 mg tablet TAKE 1 TABLET BY MOUTH ONCE fluconazole 150 mg tablet TAKE 1 TABLET BY MOUTH ONCE completed fluconazole 150 MG Oral Tablet A THENA ([facility]) Ibuprofen 200 MG Oral Capsule ibuprofen 200 mg capsule Take 1 capsule every 6 hours by oral route. ibuprofen 200 mg capsule Take 1 capsule every 6 hours by oral route. 1 capsule(s) completed ibu profen 200 MG Oral Capsule TONEY ([facility]) Amoxicillin 875 MG / Clavulanate 125 MG Oral Tablet amoxicillin 875 mg-potassium clavulanate 125 mg tablet TAKE ONE TABLET BY MOUTH TWICE A DAY amoxicillin 875 mg-potassium clavulanate 125 mg tablet TAKE ONE TABLET BY MOUTH TWICE A DAY completed amoxicillin 875 MG / c lavulanate 125 MG Oral Tablet [place] ([facility]) 0.5 ML dulaglutide 1.5 MG/ML Auto-Inject or [Trulicity] Trulicity 0.75 mg/0.5 mL subcutaneous pen injector INJECT 0.5ML UNDER THE SKIN ONCE WEEKLY Trulicity 0.75 mg/0.5 mL subcutaneous pen injector INJECT 0.5ML UNDER THE SKIN ONCE WEEKLY completed 0.5 ML dulaglu tide 1.5 MG/ML Auto-Injector [Trulicity] [place] ([facility]) Ranitidine 150 MG Oral Tablet ranitidine 150 mg tablet TAKE ONE TABLET BY MOUTH TWICE A DAY ranitidine 150 mg tablet TAKE ONE TABLET BY MOUTH TWICE A DAY completed ranitidine 150 MG Or al Tablet [place] ([facility]) Ciprofloxacin 500 MG Oral Tablet ciprofloxacin 500 mg tablet ciprofloxacin 500 mg tablet completed ciprofloxaci n 500 MG Oral Tablet [place] ([facility]) Ibuprofen 200 MG Oral Capsule ibuprofen 200 mg capsule Take 1 capsule every 6 hours by oral route. ibuprofen 200 mg capsule Take 1 capsule every 6 hours by oral route. 1 capsule(s) completed ibu profen 200 MG Oral Capsule [place] ([facility]) Ciprofloxacin 500 MG Oral Tablet ciprofloxacin 500 mg tablet ciprofloxacin 500 mg tablet completed ciprofloxaci n 500 MG Oral Tablet [place] ([facility]) Clindamycin 150 MG Oral Capsule clindamy fortino HCl 150 mg capsule TAKE THREE CAPSULES BY MOUTH THREE TIMES A DAY clindamycin HCl 150 mg capsule TAKE THRE E CAPSULES BY MOUTH THREE TIMES A DAY co mpleted clindamycin 150 MG Oral Capsule [facility] er) 24 HR Bupropion Hydrochloride 450 MG Ext ended Release Oral Tablet bupropion HCl XL 450 mg 24 hr tablet, extended release TAKE ONE TABLET BY MOUTH EVERY MORNING bupropion HCl XL 450 mg 24 hr tablet, extended release TAKE ONE TABLET BY MOUTH EVERY MORNING completed 24 HR bupropion hydrochloride 450 MG Extended Release Oral Tablet TONEY ([facility]) Cephalexin 500 MG Oral Capsule cephalexin 500 mg capsu le cephalexin 500 mg capsule completed cephalexin 500 MG Oral Capsule TONEY ([facility]) Clindamycin 150 MG Oral Capsule clindamy fortino HCl 150 mg capsule TAKE THREE CAPSULES BY MOUTH THREE TIMES A DAY clindamycin HCl 150 mg capsule TAKE THRE E CAPSULES BY MOUTH THREE TIMES A DAY co mpleted clindamycin 150 MG Oral Capsule TONEY ([facility]) nitrofurantoin 100 mg tablet Take by oral route. [id number] completed nitrofurantoin 100 mg tablet TONEY ([facility]) 24 HR Bupropion Hydrochloride 150 MG Ext ended Release Oral Tablet bupropion HCl XL 150 mg 24 hr tablet, extended release TAKE ONE TABLET BY MOUTH EVERY MORNING WITH 300MG bupropion HCl XL 150 mg 24 hr tablet, ex tended release TAKE ONE TABLET BY MOUTH EVERY MORNING WITH 300MG completed 24 HR bupropion hydrochloride 150 MG Extended Release Oral Tablet [place] ([facility]) Fluconazole 150 MG Oral Tablet fluconazo le 150 mg tablet TAKE 1 TABLET BY MOUTH ONCE fluconazole 150 mg tablet TAKE 1 TABLET BY MOUTH ONCE completed fluconazole 150 MG Oral Tablet A THENA ([facility]) 24 HR Bupropion Hydrochloride 450 MG Ext ended Release Oral Tablet bupropion HCl XL 450 mg 24 hr tablet, extended release TAKE ONE TABLET BY MOUTH EVERY MORNING bupropion HCl XL 450 mg 24 hr tablet, extended release TAKE ONE TABLET BY MOUTH EVERY MORNING completed 24 HR bupropion hydrochloride 450 MG Extended Release Oral Tablet [facility]ONEY ([facility]) tramadol hydrochloride 50 MG Oral Tablet tramadol 50 m g tablet tramadol 50 mg tablet completed tramadol hydroc hloride 50 MG Oral Tablet [facility]ONEY ([facility]) Sucralfate 1000 MG Oral Tablet sucralfat e 1 gram tablet TAKE ONE TABLET BY MOUTH FOUR TIMES A DAY NEEDED sucralfate 1 gram tablet TAKE ONE TABLET BY MOUTH FOUR TIMES A DAY NEEDED completed sucralfate 1000 MG Oral Tablet TONEY ([facility]) Sulfamethoxazole 800 MG / Trimethoprim 1 60 MG Oral Tablet sulfamethoxazole 800 mg-trimethoprim 160 mg tablet TAKE ONE TABLET BY MOUTH EVERY 12 HOURS sulfamethoxazole 800 mg-trimethoprim 160 mg tablet TAKE ONE TABLET BY MOUTH EVERY 12 HOURS completed sulfamethoxazole 800 MG / trimethoprim 160 MG Oral Tablet [facility]ONEY ([facility]) 0.5 ML dulaglutide 1.5 MG/ML Auto-Inject or [Trulicity] Trulicity 0.75 mg/0.5 mL subcutaneous pen injector INJECT 0.5ML UNDER THE SKIN ONCE WEEKLY Trulicity 0.75 mg/0.5 mL subcutaneous pen injector INJECT 0.5ML UNDER THE SKIN ONCE WEEKLY completed 0.5 ML dulaglu tide 1.5 MG/ML Auto-Injector [Trulicity] TONEY ([facility]) Famotidine 20 MG Oral Tablet famotidine 20 mg tablet TAKE ONE TABLET BY MOUTH EVERY DAY AT BEDTIME NEEDED famotidine 20 mg tablet TAKE ONE TABLET BY MOUTH EVERY DAY AT BEDTIME NEEDED complet ed famotidine 20 MG Oral Tablet [facility]ONEY ([facility]) Sucralfate 1000 MG Oral Tablet sucralfat e 1 gram tablet TAKE ONE TABLET BY MOUTH FOUR TIMES A DAY NEEDED sucralfate 1 gram tablet TAKE ONE TABLET BY MOUTH FOUR TIMES A DAY NEEDED completed sucralfate 1000 MG Oral Tablet [facility]ONEY ([facility]) 24 HR Bupropion Hydrochloride 150 MG Ext ended Release Oral Tablet bupropion HCl XL 150 mg 24 hr tablet, extended release TAKE ONE TABLET BY MOUTH EVERY MORNING WITH 300MG bupropion HCl XL 150 mg 24 hr tablet, ex tended release TAKE ONE TABLET BY MOUTH EVERY MORNING WITH 300MG completed 24 HR bupropion hydrochloride 150 MG Extended Release Oral Tablet [facility]ONE[facility] ([facility]) 0.5 ML dulaglutide 3 MG/ML Auto-Injector [Trulicity] Trulicity 1.5 mg/0.5 mL subcutaneous pen injector Trulicity 1.5 mg/0.5 mL subcutaneous pen injector completed 0.5 ML dulaglutide 3 M G/ML Auto-Injector [Trulicity] TONEY ([facility]) dapagliflozin 10 MG Oral Tablet [Farxiga ] Farxiga 10 mg tablet TAKE ONE TABLET BY MOUTH EVERY DAY Farxiga 10 mg tablet TAKE ONE TABLET BY MOUTH EVERY DAY completed dapagliflozin 10 MG Or al Tablet [Farxiga] TONEY ([facility]) 24 HR Bupropion Hydrochloride 150 MG Ext ended Release Oral Tablet bupropion HCl XL 150 mg 24 hr tablet, extended release TAKE ONE TABLET BY MOUTH EVERY MORNING WITH 300MG bupropion HCl XL 150 mg 24 hr tablet, ex tended release TAKE ONE TABLET BY MOUTH EVERY MORNING WITH 300MG completed 24 HR bupropion hydrochloride 150 MG Extended Release Oral Tablet [place] ([facility]) Sumatriptan 50 MG Oral Tablet sumatripta n 50 mg tablet TAKE ONE TABLET BY MOUTH TWICE A DAY NEEDED sumatriptan 50 mg tablet TAKE ONE TABLET BY MOUTH TWICE A DAY NEEDED completed sumatrip ernandez 50 MG Oral Tablet [place] ([facility]) Trulicity 3 mg/0.5 mL subcutaneous pen injector [id number] completed 0.5 ML dulaglutide 6 MG/ML Auto-Injector [Trulicity] A LUPE ([facility]) Amoxicillin 875 MG / Clavulanate 125 MG Oral Tablet amoxicillin 875 mg-potassium clavulanate 125 mg tablet TAKE ONE TABLET BY MOUTH TWICE A DAY amoxicillin 875 mg-potassium clavulanate 125 mg tablet TAKE ONE TABLET BY MOUTH TWICE A DAY completed amoxicillin 875 MG / c lavulanate 125 MG Oral Tablet [place] ([facility]) Amoxicillin 875 MG / Clavulanate 125 MG Oral Tablet amoxicillin 875 mg-potassium clavulanate 125 mg tablet TAKE ONE TABLET BY MOUTH TWICE A DAY amoxicillin 875 mg-potassium clavulanate 125 mg tablet TAKE ONE TABLET BY MOUTH TWICE A DAY completed amoxicillin 875 MG / c lavulanate 125 MG Oral Tablet [place] ([facility]) Beclomethasone Dipropionate (QVAR IN) Inhalation aborted Inhale into the lungs. [facility] Ciprofloxacin 500 MG Oral Tablet ciprofloxacin 500 mg tablet ciprofloxacin 500 mg tablet completed ciprofloxaci n 500 MG Oral Tablet [place] ([facility]) Amoxicillin 875 MG / Clavulanate 125 MG Oral Tablet amoxicillin 875 mg-potassium clavulanate 125 mg tablet TAKE ONE TABLET BY MOUTH TWICE A DAY amoxicillin 875 mg-potassium clavulanate 125 mg tablet TAKE ONE TABLET BY MOUTH TWICE A DAY completed amoxicillin 875 MG / c lavulanate 125 MG Oral Tablet [place] ([facility]) Sulfamethoxazole 800 MG / Trimethoprim 1 60 MG Oral Tablet sulfamethoxazole 800 mg-trimethoprim 160 mg tablet TAKE ONE TABLET BY MOUTH EVERY 12 HOURS sulfamethoxazole 800 mg-trimethoprim 160 mg tablet TAKE ONE TABLET BY MOUTH EVERY 12 HOURS completed sulfamethoxazole 800 MG / trimethoprim 160 MG Oral Tablet [facility]ONEY ([facility]) Ciprofloxacin 500 MG Oral Tablet ciprofloxacin 500 mg tablet ciprofloxacin 500 mg tablet completed ciprofloxaci n 500 MG Oral Tablet [facility]ONE[facility] ([facility]) Ranitidine 150 MG Oral Tablet ranitidine 150 mg tablet TAKE ONE TABLET BY MOUTH TWICE A DAY ranitidine 150 mg tablet TAKE ONE TABLET BY MOUTH TWICE A DAY completed ranitidine 150 MG Or al Tablet TOENY ([facility]) doxycycline hyclate 100 MG Oral Capsule doxycycline hyclate 100 mg capsule TAKE ONE CAPSULE BY MOUTH TWICE A DAY doxycycline hyclate 100 mg capsule TAKE ONE CAPSULE BY MOUTH TWICE A DAY completed doxycycline hyclate 100 MG Oral Capsule TONEY ([facility]) Amoxicillin 875 MG / Clavulanate 125 MG Oral Tablet amoxicillin 875 mg-potassium clavulanate 125 mg tablet TAKE ONE TABLET BY MOUTH TWICE A DAY amoxicillin 875 mg-potassium clavulanate 125 mg tablet TAKE ONE TABLET BY MOUTH TWICE A DAY completed amoxicillin 875 MG / c lavulanate 125 MG Oral Tablet [place] ([facility]) Prazosin 1 MG Oral Capsule prazosin 1 mg capsule TAKE 1 CAPSULE BY MOUTH EVERY NIGHT NEEDED FOR NIGHTMARES ASSOCIATED WITH PTSD prazosin 1 mg capsule TAKE 1 CAPSULE BY MOUTH EVERY NIGHT NEEDED FOR NIGHTMARES ASSOCIATED WITH PTSD completed prazosin 1 MG Oral Cap lora TONEY ([facility]) Sulfamethoxazole 800 MG / Trimethoprim 1 60 MG Oral Tablet sulfamethoxazole 800 mg-trimethoprim 160 mg tablet TAKE ONE TABLET BY MOUTH EVERY 12 HOURS sulfamethoxazole 800 mg-trimethoprim 160 mg tablet TAKE ONE TABLET BY MOUTH EVERY 12 HOURS completed sulfamethoxazole 800 MG / trimethoprim 160 MG Oral Tablet [facility]ONEY ([facility]) Sulfamethoxazole 800 MG / Trimethoprim 1 60 MG Oral Tablet sulfamethoxazole 800 mg-trimethoprim 160 mg tablet TAKE ONE TABLET BY MOUTH EVERY 12 HOURS sulfamethoxazole 800 mg-trimethoprim 160 mg tablet TAKE ONE TABLET BY MOUTH EVERY 12 HOURS completed sulfamethoxazole 800 MG / trimethoprim 160 MG Oral Tablet [facility]ONE[facility] ([facility]) pantoprazole 40 MG Delayed Release Oral Tablet pantoprazole 40 mg tablet,delayed release pantoprazole 40 mg tablet,delayed release completed pantoprazole 40 MG Delayed Release Oral Tablet [place] ([facility]) pantoprazole 40 MG Delayed Release Oral Tablet pantoprazole 40 mg tablet,delayed release pantoprazole 40 mg tablet,delayed release completed pantoprazole 40 MG Delayed Release Oral Tablet [facility]ONEY ([facility]) dapagliflozin 10 MG Oral Tablet [Farxiga ] Farxiga 10 mg tablet TAKE ONE TABLET BY MOUTH EVERY DAY Farxiga 10 mg tablet TAKE ONE TABLET BY MOUTH EVERY DAY completed dapagliflozin 10 MG Or al Tablet [Farxiga] TONEY ([facility]) Trulicity 3 mg/0.5 mL subcutaneous pen injector [id number] completed 0.5 ML dulaglutide 6 MG/ML Auto-Injector [Trulicity] Carmen ANDRADE ([facility]) Sulfamethoxazole 800 MG / Trimethoprim 1 60 MG Oral Tablet sulfamethoxazole 800 mg-trimethoprim 160 mg tablet TAKE ONE TABLET BY MOUTH EVERY 12 HOURS sulfamethoxazole 800 mg-trimethoprim 160 mg tablet TAKE ONE TABLET BY MOUTH EVERY 12 HOURS completed sulfamethoxazole 800 MG / trimethoprim 160 MG Oral Tablet [place] ([facility]) Ondansetron 4 MG Oral Tablet ondansetron HCl 4 mg tablet TAKE ONE TABLET BY MOUTH FOUR TIMES A DAY NEEDED ondansetron HCl 4 mg tablet TAKE ONE TAB LET BY MOUTH FOUR TIMES A DAY NEEDED compl eted ondansetron 4 MG Oral Tablet [place] ([facility]) 24 HR Bupropion Hydrochloride 450 MG Ext ended Release Oral Tablet bupropion HCl XL 450 mg 24 hr tablet, extended release TAKE ONE TABLET BY MOUTH EVERY MORNING bupropion HCl XL 450 mg 24 hr tablet, extended release TAKE ONE TABLET BY MOUTH EVERY MORNING completed 24 HR bupropion hydrochloride 450 MG Extended Release Oral Tablet [facility] ([facility]) Ondansetron 4 MG Oral Tablet ondansetron HCl 4 mg tablet TAKE ONE TABLET BY MOUTH FOUR TIMES A DAY NEEDED ondansetron HCl 4 mg tablet TAKE ONE TAB LET BY MOUTH FOUR TIMES A DAY NEEDED compl eted ondansetron 4 MG Oral Tablet [facility]ONE[facility] ([facility]) Ondansetron 4 MG Oral Tablet ondansetron HCl 4 mg tablet TAKE ONE TABLET BY MOUTH FOUR TIMES A DAY NEEDED ondansetron HCl 4 mg tablet TAKE ONE TAB LET BY MOUTH FOUR TIMES A DAY NEEDED compl eted ondansetron 4 MG Oral Tablet [facility]ONEY ([facility]) NITROFURANTOIN, MACROCRYSTALS 25 MG / Ni trofurantoin, Monohydrate 75 MG Oral Capsule nitrofurantoin monohydrate/macrocrystals 100 mg capsule TAKE ONE CAPSULE BY MOUTH TWICE A DAY nitrofurantoin monohydrate/macrocrystals 100 mg capsule TAKE ONE CAPSULE BY MOUTH TWICE A DAY completed nitrofurantoin, macrocrystals 25 MG / nitrofurantoin, monohydrate 75 MG Oral Capsule [place] ([facility]) Ciprofloxacin 500 MG Oral Tablet ciprofloxacin 500 mg tablet ciprofloxacin 500 mg tablet completed ciprofloxaci n 500 MG Oral Tablet [place] ([facility]) venlafaxine 75 MG Oral Tablet venlafaxin e 75 mg tablet TAKE ONE TABLET BY MOUTH EVERY DAY WITH FOOD venlafaxine 75 mg tablet TAKE ONE TABLET BY MOUTH EVERY DAY WITH FOOD completed venlafaxine 75 MG Oral Tablet [place] ([facility]) Sumatriptan 50 MG Oral Tablet sumatripta n 50 mg tablet TAKE ONE TABLET BY MOUTH TWICE A DAY NEEDED sumatriptan 50 mg tablet TAKE ONE TABLET BY MOUTH TWICE A DAY NEEDED completed sumatrip ernandez 50 MG Oral Tablet [place] ([facility]) pantoprazole 40 MG Delayed Release Oral Tablet pantoprazole 40 mg tablet,delayed release pantoprazole 40 mg tablet,delayed release completed pantoprazole 40 MG Delayed Release Oral Tablet [place] ([facility]) celecoxib 100 MG Oral Capsule celecoxib 100 mg capsule celec oxib 100 mg capsule completed celecoxib 100 MG Oral Capsule [place] ([facility]) Famotidine 20 MG Oral Tablet famotidine 20 mg tablet TAKE ONE TABLET BY MOUTH EVERY DAY AT BEDTIME NEEDED famotidine 20 mg tablet TAKE ONE TABLET BY MOUTH EVERY DAY AT BEDTIME NEEDED complet ed famotidine 20 MG Oral Tablet [place] ([facility]) venlafaxine 75 MG Oral Tablet venlafaxin e 75 mg tablet TAKE ONE TABLET BY MOUTH EVERY DAY WITH FOOD venlafaxine 75 mg tablet TAKE ONE TABLET BY MOUTH EVERY DAY WITH FOOD completed venlafaxine 75 MG Oral Tablet [place] ([facility]) tramadol hydrochloride 50 MG Oral Tablet tramadol 50 m g tablet tramadol 50 mg tablet completed tramadol hydroc hloride 50 MG Oral Tablet [facility]) Trulicity 3 mg/0.5 mL subcutaneous pen injector [id number] completed 0.5 ML dulaglutide 6 MG/ML Auto-Injector [Trulicity] Carmen THENCarmen ([facility]) Clindamycin 150 MG Oral Capsule clindamy fortino HCl 150 mg capsule TAKE THREE CAPSULES BY MOUTH THREE TIMES A DAY clindamycin HCl 150 mg capsule TAKE THRE E CAPSULES BY MOUTH THREE TIMES A DAY co mpleted clindamycin 150 MG Oral Capsule [facility] ([facility]) tramadol hydrochloride 50 MG Oral Tablet tramadol 50 m g tablet tramadol 50 mg tablet completed tramadol hydroc hloride 50 MG Oral Tablet [facility]ONE[facility] ([facility]) Ranitidine 150 MG Oral Tablet ranitidine 150 mg tablet TAKE ONE TABLET BY MOUTH TWICE A DAY ranitidine 150 mg tablet TAKE ONE TABLET BY MOUTH TWICE A DAY completed ranitidine 150 MG Or al Tablet [place] ([facility]) Ondansetron 4 MG Oral Tablet ondansetron HCl 4 mg tablet TAKE ONE TABLET BY MOUTH FOUR TIMES A DAY NEEDED ondansetron HCl 4 mg tablet TAKE ONE TAB LET BY MOUTH FOUR TIMES A DAY NEEDED compl eted ondansetron 4 MG Oral Tablet [facility]ONE[facility] ([facility]) 24 HR Bupropion Hydrochloride 450 MG Ext ended Release Oral Tablet bupropion HCl XL 450 mg 24 hr tablet, extended release TAKE ONE TABLET BY MOUTH EVERY MORNING bupropion HCl XL 450 mg 24 hr tablet, extended release TAKE ONE TABLET BY MOUTH EVERY MORNING completed 24 HR bupropion hydrochloride 450 MG Extended Release Oral Tablet [facility]ONE[facility] ([facility]) doxycycline hyclate 100 MG Oral Capsule doxycycline hyclate 100 mg capsule TAKE ONE CAPSULE BY MOUTH TWICE A DAY doxycycline hyclate 100 mg capsule TAKE ONE CAPSULE BY MOUTH TWICE A DAY completed doxycycline hyclate 100 MG Oral Capsule [facility]ONE[facility] ([facility]) Famotidine 20 MG Oral Tablet famotidine 20 mg tablet TAKE ONE TABLET BY MOUTH EVERY DAY AT BEDTIME NEEDED famotidine 20 mg tablet TAKE ONE TABLET BY MOUTH EVERY DAY AT BEDTIME NEEDED complet ed famotidine 20 MG Oral Tablet [facility]ONE[facility] ([facility]) 24 HR Bupropion Hydrochloride 150 MG Ext ended Release Oral Tablet bupropion HCl XL 150 mg 24 hr tablet, extended release TAKE ONE TABLET BY MOUTH EVERY MORNING WITH 300MG bupropion HCl XL 150 mg 24 hr tablet, ex tended release TAKE ONE TABLET BY MOUTH EVERY MORNING WITH 300MG completed 24 HR bupropion hydrochloride 150 MG Extended Release Oral Tablet [facility]ONE[facility] ([facility]) 24 HR Bupropion Hydrochloride 150 MG Ext ended Release Oral Tablet bupropion HCl XL 150 mg 24 hr tablet, extended release TAKE ONE TABLET BY MOUTH EVERY MORNING WITH 300MG bupropion HCl XL 150 mg 24 hr tablet, ex tended release TAKE ONE TABLET BY MOUTH EVERY MORNING WITH 300MG completed 24 HR bupropion hydrochloride 150 MG Extended Release Oral Tablet [facility]ONE[facility] ([facility]) nitrofurantoin 100 mg tablet Take by oral route. [id number] completed nitrofurantoin 100 mg tablet [facility]ONE[facility] ([facility]) Fluconazole 150 MG Oral Tablet fluconazo le 150 mg tablet TAKE 1 TABLET BY MOUTH ONCE fluconazole 150 mg tablet TAKE 1 TABLET BY MOUTH ONCE completed fluconazole 150 MG Oral Tablet A THENA ([facility]) Famotidine 20 MG Oral Tablet famotidine 20 mg tablet TAKE ONE TABLET BY MOUTH EVERY DAY AT BEDTIME NEEDED famotidine 20 mg tablet TAKE ONE TABLET BY MOUTH EVERY DAY AT BEDTIME NEEDED complet ed famotidine 20 MG Oral Tablet [facility]ONEY ([facility]) Deblitane 0.35 mg tablet TAKE ONE TABLET BY MOUTH EVERY DAY [id number] completed Deblitane 0.35 mg tablet [place] ([facility]) NITROFURANTOIN, MACROCRYSTALS 25 MG / Ni trofurantoin, Monohydrate 75 MG Oral Capsule nitrofurantoin monohydrate/macrocrystals 100 mg capsule TAKE ONE CAPSULE BY MOUTH TWICE A DAY nitrofurantoin monohydrate/macrocrystals 100 mg capsule TAKE ONE CAPSULE BY MOUTH TWICE A DAY completed nitrofurantoin, macrocrystals 25 MG / nitrofurantoin, monohydrate 75 MG Oral Capsule [facility]ONEY ([facility]) Prazosin 1 MG Oral Capsule prazosin 1 mg capsule TAKE 1 CAPSULE BY MOUTH EVERY NIGHT NEEDED FOR N[employer]ES ASSOCIATED WITH PTSD prazosin 1 mg capsule TAKE 1 CAPSULE BY MOUTH EVERY NIGHT NEEDED FOR NIGHTMARES ASSOCIATED WITH PTSD completed prazosin 1 MG Oral Cap lora TONEY ([facility]) Sucralfate 1000 MG Oral Tablet sucralfat e 1 gram tablet TAKE ONE TABLET BY MOUTH FOUR TIMES A DAY NEEDED sucralfate 1 gram tablet TAKE ONE TABLET BY MOUTH FOUR TIMES A DAY NEEDED completed sucralfate 1000 MG Oral Tablet [facility]ONEY ([facility]) Prazosin 1 MG Oral Capsule prazosin 1 mg capsule TAKE 1 CAPSULE BY MOUTH EVERY NIGHT NEEDED FOR NIGHTMARES ASSOCIATED WITH PTSD prazosin 1 mg capsule TAKE 1 CAPSULE BY MOUTH EVERY NIGHT NEEDED FOR NIGHTMARES ASSOCIATED WITH PTSD completed prazosin 1 MG Oral Cap lora TONEY ([facility]) Prazosin 1 MG Oral Capsule prazosin 1 mg capsule TAKE 1 CAPSULE BY MOUTH EVERY NIGHT NEEDED FOR NIGHTMARES ASSOCIATED WITH PTSD prazosin 1 mg capsule TAKE 1 CAPSULE BY MOUTH EVERY NIGHT NEEDED FOR NIGHTMARES ASSOCIATED WITH PTSD completed prazosin 1 MG Oral Cap lora TONEY ([facility]) Clindamycin 150 MG Oral Capsule clindamy fortino HCl 150 mg capsule TAKE THREE CAPSULES BY MOUTH THREE TIMES A DAY clindamycin HCl 150 mg capsule TAKE THRE E CAPSULES BY MOUTH THREE TIMES A DAY co mpleted clindamycin 150 MG Oral Capsule TONEY ([facility]) Cephalexin 500 MG Oral Capsule cephalexin 500 mg capsu le cephalexin 500 mg capsule completed cephalexin 500 MG Oral Capsule [facility]ONEY ([facility]) Sumatriptan 50 MG Oral Tablet sumatripta n 50 mg tablet TAKE ONE TABLET BY MOUTH TWICE A DAY NEEDED sumatriptan 50 mg tablet TAKE ONE TABLET BY MOUTH TWICE A DAY NEEDED completed sumatrip ernandez 50 MG Oral Tablet [facility]ONE[facility] ([facility]) Ranitidine 150 MG Oral Tablet ranitidine 150 mg tablet TAKE ONE TABLET BY MOUTH TWICE A DAY ranitidine 150 mg tablet TAKE ONE TABLET BY MOUTH TWICE A DAY completed ranitidine 150 MG Or al Tablet TONEY ([facility]) Sulfamethoxazole 800 MG / Trimethoprim 1 60 MG Oral Tablet sulfamethoxazole 800 mg-trimethoprim 160 mg tablet TAKE ONE TABLET BY MOUTH EVERY 12 HOURS sulfamethoxazole 800 mg-trimethoprim 160 mg tablet TAKE ONE TABLET BY MOUTH EVERY 12 HOURS completed sulfamethoxazole 800 MG / trimethoprim 160 MG Oral Tablet [facility] ([facility]) pantoprazole 40 MG Delayed Release Oral Tablet pantoprazole 40 mg tablet,delayed release pantoprazole 40 mg tablet,delayed release completed pantoprazole 40 MG Delayed Release Oral Tablet [facility]ONE[facility] ([facility]) Famotidine 20 MG Oral Tablet famotidine 20 mg tablet TAKE ONE TABLET BY MOUTH EVERY DAY AT BEDTIME NEEDED famotidine 20 mg tablet TAKE ONE TABLET BY MOUTH EVERY DAY AT BEDTIME NEEDED complet ed famotidine 20 MG Oral Tablet [facility]ONE[facility] ([facility]) Prazosin 1 MG Oral Capsule prazosin 1 mg capsule TAKE 1 CAPSULE BY MOUTH EVERY NIGHT NEEDED FOR [employer]OC[employer] WITH PTSD prazosin 1 mg capsule TAKE 1 CAPSULE BY MOUTH EVERY NIGHT NEEDED FOR [employer] WITH PTSD completed prazosin 1 MG Oral Cap lora TONEY ([facility]) Clonidine Hydrochloride 0.1 MG Oral Tabl et clonidine HCl 0.1 mg tablet TAKE ONE TABLET BY MOUTH TWICE A DAY clonidine HCl 0.1 mg tablet TAKE ONE TAB LET BY MOUTH TWICE A DAY completed c lonidine hydrochloride 0.1 MG Oral Tablet [place] ([facility]) Sucralfate 1000 MG Oral Tablet sucralfat e 1 gram tablet TAKE ONE TABLET BY MOUTH FOUR TIMES A DAY NEEDED sucralfate 1 gram tablet TAKE ONE TABLET BY MOUTH FOUR TIMES A DAY NEEDED completed sucralfate 1000 MG Oral Tablet [place] ([facility]) Sumatriptan 50 MG Oral Tablet sumatripta n 50 mg tablet TAKE ONE TABLET BY MOUTH TWICE A DAY NEEDED sumatriptan 50 mg tablet TAKE ONE TABLET BY MOUTH TWICE A DAY NEEDED completed sumatrip ernandez 50 MG Oral Tablet [place] ([facility]) Amoxicillin 875 MG / Clavulanate 125 MG Oral Tablet amoxicillin 875 mg-potassium clavulanate 125 mg tablet TAKE ONE TABLET BY MOUTH TWICE A DAY amoxicillin 875 mg-potassium clavulanate 125 mg tablet TAKE ONE TABLET BY MOUTH TWICE A DAY completed amoxicillin 875 MG / c lavulanate 125 MG Oral Tablet [place] ([facility]) Ondansetron 8 MG Disintegrating Oral Tab let ondansetron 8 mg disintegrating tablet DISSOLVE 1 TABLET UNDER THE TONGUE TWO TIMES A DAY ondansetron 8 mg disintegrating tablet DISSOLVE 1 TABLET UNDER THE TONGUE TWO TIMES A DAY completed ondansetron 8 MG Dis integrating Oral Tablet [place] ([facility]) tramadol hydrochloride 50 MG Oral Tablet tramadol 50 m g tablet tramadol 50 mg tablet completed tramadol hydroc hloride 50 MG Oral Tablet [place] ([facility]) nitrofurantoin 100 mg tablet Take by oral route. [id number] completed nitrofurantoin 100 mg tablet [place] ([facility]) Clindamycin 150 MG Oral Capsule clindamy fortino HCl 150 mg capsule TAKE THREE CAPSULES BY MOUTH THREE TIMES A DAY clindamycin HCl 150 mg capsule TAKE THRE E CAPSULES BY MOUTH THREE TIMES A DAY co mpleted clindamycin 150 MG Oral Capsule [place] ([facility]) Fluconazole 150 MG Oral Tablet fluconazo le 150 mg tablet TAKE 1 TABLET BY MOUTH ONCE fluconazole 150 mg tablet TAKE 1 TABLET BY MOUTH ONCE completed fluconazole 150 MG Oral Tablet A [facility] ([facility]) dapagliflozin 10 MG Oral Tablet [Farxiga ] Farxiga 10 mg tablet TAKE ONE TABLET BY MOUTH EVERY DAY Farxiga 10 mg tablet TAKE ONE TABLET BY MOUTH EVERY DAY completed dapagliflozin 10 MG Or al Tablet [Farxiga] [place] ([facility]) Ranitidine 150 MG Oral Tablet ranitidine 150 mg tablet TAKE ONE TABLET BY MOUTH TWICE A DAY ranitidine 150 mg tablet TAKE ONE TABLET BY MOUTH TWICE A DAY completed ranitidine 150 MG Or al Tablet [place] ([facility]) Clindamycin 150 MG Oral Capsule clindamy fortino HCl 150 mg capsule TAKE THREE CAPSULES BY MOUTH THREE TIMES A DAY clindamycin HCl 150 mg capsule TAKE THRE E CAPSULES BY MOUTH THREE TIMES A DAY co mpleted clindamycin 150 MG Oral Capsule [place] ([facility]) Amoxicillin 875 MG / Clavulanate 125 MG Oral Tablet amoxicillin 875 mg-potassium clavulanate 125 mg tablet TAKE ONE TABLET BY MOUTH TWICE A DAY amoxicillin 875 mg-potassium clavulanate 125 mg tablet TAKE ONE TABLET BY MOUTH TWICE A DAY completed amoxicillin 875 MG / c lavulanate 125 MG Oral Tablet [place] ([facility]) 24 HR Bupropion Hydrochloride 150 MG Ext ended Release Oral Tablet bupropion HCl XL 150 mg 24 hr tablet, extended release TAKE ONE TABLET BY MOUTH EVERY MORNING WITH 300MG bupropion HCl XL 150 mg 24 hr tablet, ex tended release TAKE ONE TABLET BY MOUTH EVERY MORNING WITH 300MG completed 24 HR bupropion hydrochloride 150 MG Extended Release Oral Tablet [place] ([facility]) Ranitidine 150 MG Oral Tablet ranitidine 150 mg tablet TAKE ONE TABLET BY MOUTH TWICE A DAY ranitidine 150 mg tablet TAKE ONE TABLET BY MOUTH TWICE A DAY completed ranitidine 150 MG Or al Tablet [place] ([facility]) Ranitidine 150 MG Oral Tablet ranitidine 150 mg tablet TAKE ONE TABLET BY MOUTH TWICE A DAY ranitidine 150 mg tablet TAKE ONE TABLET BY MOUTH TWICE A DAY completed ranitidine 150 MG Or al Tablet [facility]ONE[facility] ([facility]) Fluconazole 150 MG Oral Tablet fluconazo le 150 mg tablet TAKE 1 TABLET BY MOUTH ONCE fluconazole 150 mg tablet TAKE 1 TABLET BY MOUTH ONCE completed fluconazole 150 MG Oral Tablet A [facility] ([facility]) Famotidine 20 MG Oral Tablet famotidine 20 mg tablet TAKE ONE TABLET BY MOUTH EVERY DAY AT BEDTIME NEEDED famotidine 20 mg tablet TAKE ONE TABLET BY MOUTH EVERY DAY AT BEDTIME NEEDED complet ed famotidine 20 MG Oral Tablet [place] ([facility]) Fluconazole 150 MG Oral Tablet fluconazo le 150 mg tablet TAKE 1 TABLET BY MOUTH ONCE fluconazole 150 mg tablet TAKE 1 TABLET BY MOUTH ONCE completed fluconazole 150 MG Oral Tablet A [facility] ([facility]) Sumatriptan 50 MG Oral Tablet sumatripta n 50 mg tablet TAKE ONE TABLET BY MOUTH TWICE A DAY NEEDED sumatriptan 50 mg tablet TAKE ONE TABLET BY MOUTH TWICE A DAY NEEDED completed sumatrip ernandez 50 MG Oral Tablet [place] ([facility]) 0.5 ML dulaglutide 1.5 MG/ML Auto-Inject or [Trulicity] Trulicity 0.75 mg/0.5 mL subcutaneous pen injector INJECT 0.5ML UNDER THE SKIN ONCE WEEKLY Trulicity 0.75 mg/0.5 mL subcutaneous pen injector INJECT 0.5ML UNDER THE SKIN ONCE WEEKLY completed 0.5 ML dulaglu tide 1.5 MG/ML Auto-Injector [Trulicity] [place] ([facility]) tramadol hydrochloride 50 MG Oral Tablet tramadol 50 m g tablet tramadol 50 mg tablet completed tramadol hydroc hloride 50 MG Oral Tablet [place] ([facility]) Clonidine Hydrochloride 0.1 MG Oral Tabl et clonidine HCl 0.1 mg tablet TAKE ONE TABLET BY MOUTH TWICE A DAY clonidine HCl 0.1 mg tablet TAKE ONE TAB LET BY MOUTH TWICE A DAY completed c lonidine hydrochloride 0.1 MG Oral Tablet [place] ([facility]) Prazosin 1 MG Oral Capsule prazosin 1 mg capsule TAKE 1 CAPSULE BY MOUTH EVERY NIGHT NEEDED FOR [employer] WITH PTSD prazosin 1 mg capsule TAKE 1 CAPSULE BY MOUTH EVERY NIGHT NEEDED FOR N[employer] WITH PTSD completed prazosin 1 MG Oral Cap lora [place] ([facility]) tramadol hydrochloride 50 MG Oral Tablet tramadol 50 m g tablet tramadol 50 mg tablet completed tramadol hydroc hloride 50 MG Oral Tablet [place] ([facility]) venlafaxine 75 MG Oral Tablet venlafaxin e 75 mg tablet TAKE ONE TABLET BY MOUTH EVERY DAY WITH FOOD venlafaxine 75 mg tablet TAKE ONE TABLET BY MOUTH EVERY DAY WITH FOOD completed venlafaxine 75 MG Oral Tablet [place] ([facility]) pantoprazole 40 MG Delayed Release Oral Tablet pantoprazole 40 mg tablet,delayed release pantoprazole 40 mg tablet,delayed release completed pantoprazole 40 MG Delayed Release Oral Tablet [place] ([facility]) Clindamycin 150 MG Oral Capsule clindamy fortino HCl 150 mg capsule TAKE THREE CAPSULES BY MOUTH THREE TIMES A DAY clindamycin HCl 150 mg capsule TAKE THRE E CAPSULES BY MOUTH THREE TIMES A DAY co mpleted clindamycin 150 MG Oral Capsule [place] ([facility]) Prazosin 1 MG Oral Capsule prazosin 1 mg capsule TAKE 1 CAPSULE BY MOUTH EVERY NIGHT NEEDED FOR N[employer] WITH PTSD prazosin 1 mg capsule TAKE 1 CAPSULE BY MOUTH EVERY NIGHT NEEDED FOR [employer] WITH PTSD completed prazosin 1 MG Oral Cap lora [place] ([facility]) 0.5 ML dulaglutide 1.5 MG/ML Auto-Inject or [Trulicity] Trulicity 0.75 mg/0.5 mL subcutaneous pen injector INJECT 0.5ML UNDER THE SKIN ONCE WEEKLY Trulicity 0.75 mg/0.5 mL subcutaneous pen injector INJECT 0.5ML UNDER THE SKIN ONCE WEEKLY completed 0.5 ML dulaglu tide 1.5 MG/ML Auto-Injector [Trulicity] [place] ([facility]) Sulfamethoxazole 800 MG / Trimethoprim 1 60 MG Oral Tablet sulfamethoxazole 800 mg-trimethoprim 160 mg tablet TAKE ONE TABLET BY MOUTH EVERY 12 HOURS sulfamethoxazole 800 mg-trimethoprim 160 mg tablet TAKE ONE TABLET BY MOUTH EVERY 12 HOURS completed sulfamethoxazole 800 MG / trimethoprim 160 MG Oral Tablet [facility]) Ranitidine 150 MG Oral Tablet ranitidine 150 mg tablet TAKE ONE TABLET BY MOUTH TWICE A DAY ranitidine 150 mg tablet TAKE ONE TABLET BY MOUTH TWICE A DAY completed ranitidine 150 MG Or al Tablet [place] ([facility]) venlafaxine 75 MG Oral Tablet venlafaxin e 75 mg tablet TAKE ONE TABLET BY MOUTH EVERY DAY WITH FOOD venlafaxine 75 mg tablet TAKE ONE TABLET BY MOUTH EVERY DAY WITH FOOD completed venlafaxine 75 MG Oral Tablet [place] ([facility]) Fluconazole 150 MG Oral Tablet fluconazo le 150 mg tablet TAKE 1 TABLET BY MOUTH ONCE fluconazole 150 mg tablet TAKE 1 TABLET BY MOUTH ONCE completed fluconazole 150 MG Oral Tablet A THEN ([facility]) Amoxicillin 875 MG / Clavulanate 125 MG Oral Tablet amoxicillin 875 mg-potassium clavulanate 125 mg tablet TAKE ONE TABLET BY MOUTH TWICE A DAY amoxicillin 875 mg-potassium clavulanate 125 mg tablet TAKE ONE TABLET BY MOUTH TWICE A DAY completed amoxicillin 875 MG / c lavulanate 125 MG Oral Tablet [place] ([facility]) Deblitane 0.35 mg tablet TAKE ONE TABLET BY MOUTH EVERY DAY [id number] completed Deblitane 0.35 mg tablet [place] ([facility]) Sumatriptan 50 MG Oral Tablet sumatripta n 50 mg tablet TAKE ONE TABLET BY MOUTH TWICE A DAY NEEDED sumatriptan 50 mg tablet TAKE ONE TABLET BY MOUTH TWICE A DAY NEEDED completed sumatrip ernandez 50 MG Oral Tablet [place] ([facility]) Clindamycin 150 MG Oral Capsule clindamy fortino HCl 150 mg capsule TAKE THREE CAPSULES BY MOUTH THREE TIMES A DAY clindamycin HCl 150 mg capsule TAKE THRE E CAPSULES BY MOUTH THREE TIMES A DAY co mpleted clindamycin 150 MG Oral Capsule [place] ([facility]) Prazosin 1 MG Oral Capsule prazosin 1 mg capsule TAKE 1 CAPSULE BY MOUTH EVERY NIGHT NEEDED FOR N[employer]OCI[employer] WITH PTSD prazosin 1 mg capsule TAKE 1 CAPSULE BY MOUTH EVERY NIGHT NEEDED FOR N[employer]OCI[employer] WITH PTSD completed prazosin 1 MG Oral Cap lora [place] ([facility]) Ondansetron 4 MG Oral Tablet ondansetron HCl 4 mg tablet TAKE ONE TABLET BY MOUTH FOUR TIMES A DAY NEEDED ondansetron HCl 4 mg tablet TAKE ONE TAB LET BY MOUTH FOUR TIMES A DAY NEEDED compl eted ondansetron 4 MG Oral Tablet [facility] ([facility]) dapagliflozin 10 MG Oral Tablet [Farxiga ] Farxiga 10 mg tablet TAKE ONE TABLET BY MOUTH EVERY DAY Farxiga 10 mg tablet TAKE ONE TABLET BY MOUTH EVERY DAY completed dapagliflozin 10 MG Or al Tablet [Farxiga] [facility] ([facility]) Cephalexin 500 MG Oral Capsule cephalexin 500 mg capsu le cephalexin 500 mg capsule completed cephalexin 500 MG Oral Capsule [facility] ([facility]) 24 HR Bupropion Hydrochloride 450 MG Ext ended Release Oral Tablet bupropion HCl XL 450 mg 24 hr tablet, extended release TAKE ONE TABLET BY MOUTH EVERY MORNING bupropion HCl XL 450 mg 24 hr tablet, extended release TAKE ONE TABLET BY MOUTH EVERY MORNING completed 24 HR bupropion hydrochloride 450 MG Extended Release Oral Tablet [facility] ([facility]) celecoxib 100 MG Oral Capsule celecoxib 100 mg capsule celec oxib 100 mg capsule completed celecoxib 100 MG Oral Capsule [place] ([facility]) Sulfamethoxazole 800 MG / Trimethoprim 1 60 MG Oral Tablet sulfamethoxazole 800 mg-trimethoprim 160 mg tablet TAKE ONE TABLET BY MOUTH EVERY 12 HOURS sulfamethoxazole 800 mg-trimethoprim 160 mg tablet TAKE ONE TABLET BY MOUTH EVERY 12 HOURS completed sulfamethoxazole 800 MG / trimethoprim 160 MG Oral Tablet [facility] ([facility]) 24 HR Bupropion Hydrochloride 450 MG Ext ended Release Oral Tablet bupropion HCl XL 450 mg 24 hr tablet, extended release TAKE ONE TABLET BY MOUTH EVERY MORNING bupropion HCl XL 450 mg 24 hr tablet, extended release TAKE ONE TABLET BY MOUTH EVERY MORNING completed 24 HR bupropion hydrochloride 450 MG Extended Release Oral Tablet [facility] ([facility]) 0.5 ML dulaglutide 3 MG/ML Auto-Injector [Trulicity] Trulicity 1.5 mg/0.5 mL subcutaneous pen injector Trulicity 1.5 mg/0.5 mL subcutaneous pen injector completed 0.5 ML dulaglutide 3 M G/ML Auto-Injector [Trulicity] [place] ([facility]) Deblitane 0.35 mg tablet TAKE ONE TABLET BY MOUTH EVERY DAY [id number] completed Deblitane 0.35 mg tablet [place] ([facility]) Fluconazole 150 MG Oral Tablet fluconazo le 150 mg tablet TAKE 1 TABLET BY MOUTH ONCE fluconazole 150 mg tablet TAKE 1 TABLET BY MOUTH ONCE completed fluconazole 150 MG Oral Tablet A [facility] ([facility]) Sumatriptan 50 MG Oral Tablet sumatripta n 50 mg tablet TAKE ONE TABLET BY MOUTH TWICE A DAY NEEDED sumatriptan 50 mg tablet TAKE ONE TABLET BY MOUTH TWICE A DAY NEEDED completed sumatrip ernandez 50 MG Oral Tablet [place] ([facility]) Clonidine Hydrochloride 0.1 MG Oral Tabl et clonidine HCl 0.1 mg tablet TAKE ONE TABLET BY MOUTH TWICE A DAY clonidine HCl 0.1 mg tablet TAKE ONE TAB LET BY MOUTH TWICE A DAY completed c lonidine hydrochloride 0.1 MG Oral Tablet [facility] ([facility]) Deblitane 0.35 mg tablet TAKE ONE TABLET BY MOUTH EVERY DAY [id number] completed Deblitane 0.35 mg tablet [place] ([facility]) 0.5 ML dulaglutide 3 MG/ML Auto-Injector [Trulicity] Trulicity 1.5 mg/0.5 mL subcutaneous pen injector Trulicity 1.5 mg/0.5 mL subcutaneous pen injector completed 0.5 ML dulaglutide 3 M G/ML Auto-Injector [Trulicity] [place] ([facility]) 24 HR Bupropion Hydrochloride 450 MG Ext ended Release Oral Tablet bupropion HCl XL 450 mg 24 hr tablet, extended release TAKE ONE TABLET BY MOUTH EVERY MORNING bupropion HCl XL 450 mg 24 hr tablet, extended release TAKE ONE TABLET BY MOUTH EVERY MORNING completed 24 HR bupropion hydrochloride 450 MG Extended Release Oral Tablet [place] ([facility]) Prazosin 1 MG Oral Capsule prazosin 1 mg capsule TAKE 1 CAPSULE BY MOUTH EVERY NIGHT NEEDED FOR N[employer]OCI[employer] WITH PTSD prazosin 1 mg capsule TAKE 1 CAPSULE BY MOUTH EVERY NIGHT NEEDED FOR N[employer] ASSOCI[employer] WITH PTSD completed prazosin 1 MG Oral Cap lora [facility]ONE[facility] ([facility]) venlafaxine 75 MG Oral Tablet venlafaxin e 75 mg tablet TAKE ONE TABLET BY MOUTH EVERY DAY WITH FOOD venlafaxine 75 mg tablet TAKE ONE TABLET BY MOUTH EVERY DAY WITH FOOD completed venlafaxine 75 MG Oral Tablet [place] ([facility]) Clindamycin 150 MG Oral Capsule clindamy fortino HCl 150 mg capsule TAKE THREE CAPSULES BY MOUTH THREE TIMES A DAY clindamycin HCl 150 mg capsule TAKE THRE E CAPSULES BY MOUTH THREE TIMES A DAY co mpleted clindamycin 150 MG Oral Capsule [facility] ([facility]) Ondansetron 8 MG Disintegrating Oral Tab let ondansetron 8 mg disintegrating tablet DISSOLVE 1 TABLET UNDER THE TONGUE TWO TIMES A DAY ondansetron 8 mg disintegrating tablet DISSOLVE 1 TABLET UNDER THE TONGUE TWO TIMES A DAY completed ondansetron 8 MG Dis integrating Oral Tablet [place] ([facility]) doxycycline hyclate 100 MG Oral Capsule doxycycline hyclate 100 mg capsule TAKE ONE CAPSULE BY MOUTH TWICE A DAY doxycycline hyclate 100 mg capsule TAKE ONE CAPSULE BY MOUTH TWICE A DAY completed doxycycline hyclate 100 MG Oral Capsule [place] ([facility]) venlafaxine 75 MG Oral Tablet venlafaxin e 75 mg tablet TAKE ONE TABLET BY MOUTH EVERY DAY WITH FOOD venlafaxine 75 mg tablet TAKE ONE TABLET BY MOUTH EVERY DAY WITH FOOD completed venlafaxine 75 MG Oral Tablet [place] ([facility]) Prazosin 1 MG Oral Capsule prazosin 1 mg capsule TAKE 1 CAPSULE BY MOUTH EVERY NIGHT NEEDED FOR N[employer] ASSOCI[employer] WITH PTSD prazosin 1 mg capsule TAKE 1 CAPSULE BY MOUTH EVERY NIGHT NEEDED FOR N[employer] ASSOCI[employer] WITH PTSD completed prazosin 1 MG Oral Cap lora [facility] ([facility]) tramadol hydrochloride 50 MG Oral Tablet tramadol 50 m g tablet tramadol 50 mg tablet completed tramadol hydroc hloride 50 MG Oral Tablet [place] ([facility]) pantoprazole 40 MG Delayed Release Oral Tablet pantoprazole 40 mg tablet,delayed release pantoprazole 40 mg tablet,delayed release completed pantoprazole 40 MG Delayed Release Oral Tablet [place] ([facility]) dapagliflozin 10 MG Oral Tablet [Farxiga ] Farxiga 10 mg tablet TAKE ONE TABLET BY MOUTH EVERY DAY Farxiga 10 mg tablet TAKE ONE TABLET BY MOUTH EVERY DAY completed dapagliflozin 10 MG Or al Tablet [Farxiga] [facility] ([facility]) 24 HR Bupropion Hydrochloride 150 MG Ext ended Release Oral Tablet bupropion HCl XL 150 mg 24 hr tablet, extended release TAKE ONE TABLET BY MOUTH EVERY MORNING WITH 300MG bupropion HCl XL 150 mg 24 hr tablet, ex tended release TAKE ONE TABLET BY MOUTH EVERY MORNING WITH 300MG completed 24 HR bupropion hydrochloride 150 MG Extended Release Oral Tablet [place] ([facility]) Ibuprofen 200 MG Oral Capsule ibuprofen 200 mg capsule Take 1 capsule every 6 hours by oral route. ibuprofen 200 mg capsule Take 1 capsule every 6 hours by oral route. 1 capsule(s) completed ibu profen 200 MG Oral Capsule [place] ([facility]) Ondansetron 4 MG Oral Tablet ondansetron HCl 4 mg tablet TAKE ONE TABLET BY MOUTH FOUR TIMES A DAY NEEDED ondansetron HCl 4 mg tablet TAKE ONE TAB LET BY MOUTH FOUR TIMES A DAY NEEDED compl eted ondansetron 4 MG Oral Tablet [place] ([facility]) Amoxicillin 875 MG / Clavulanate 125 MG Oral Tablet amoxicillin 875 mg-potassium clavulanate 125 mg tablet TAKE ONE TABLET BY MOUTH TWICE A DAY amoxicillin 875 mg-potassium clavulanate 125 mg tablet TAKE ONE TABLET BY MOUTH TWICE A DAY completed amoxicillin 875 MG / c lavulanate 125 MG Oral Tablet [place] ([facility]) Prazosin 1 MG Oral Capsule prazosin 1 mg capsule TAKE 1 CAPSULE BY MOUTH EVERY NIGHT NEEDED FOR N[employer] ASSOCI[employer] WITH PTSD prazosin 1 mg capsule TAKE 1 CAPSULE BY MOUTH EVERY NIGHT NEEDED FOR N[employer] ASSOCI[employer] WITH PTSD completed prazosin 1 MG Oral Cap lora [place] ([facility]) Ciprofloxacin 500 MG Oral Tablet ciprofloxacin 500 mg tablet ciprofloxacin 500 mg tablet completed ciprofloxaci n 500 MG Oral Tablet [place] ([facility]) Famotidine 20 MG Oral Tablet famotidine 20 mg tablet TAKE ONE TABLET BY MOUTH EVERY DAY AT BEDTIME NEEDED famotidine 20 mg tablet TAKE ONE TABLET BY MOUTH EVERY DAY AT BEDTIME NEEDED complet ed famotidine 20 MG Oral Tablet [place] ([facility]) Prazosin 1 MG Oral Capsule prazosin 1 mg capsule TAKE 1 CAPSULE BY MOUTH EVERY NIGHT NEEDED FOR N[employer] ASSOCI[employer] WITH PTSD prazosin 1 mg capsule TAKE 1 CAPSULE BY MOUTH EVERY NIGHT NEEDED FOR N[employer] ASSOCI[employer] WITH PTSD completed prazosin 1 MG Oral Cap lora [place] ([facility]) pantoprazole 40 MG Delayed Release Oral Tablet pantoprazole 40 mg tablet,delayed release pantoprazole 40 mg tablet,delayed release completed pantoprazole 40 MG Delayed Release Oral Tablet [place] ([facility]) Ondansetron 4 MG Oral Tablet ondansetron HCl 4 mg tablet TAKE ONE TABLET BY MOUTH FOUR TIMES A DAY NEEDED ondansetron HCl 4 mg tablet TAKE ONE TAB LET BY MOUTH FOUR TIMES A DAY NEEDED compl eted ondansetron 4 MG Oral Tablet [facility] ([facility]) doxycycline hyclate 100 MG Oral Capsule doxycycline hyclate 100 mg capsule TAKE ONE CAPSULE BY MOUTH TWICE A DAY doxycycline hyclate 100 mg capsule TAKE ONE CAPSULE BY MOUTH TWICE A DAY completed doxycycline hyclate 100 MG Oral Capsule [facility] ([facility]) dapagliflozin 10 MG Oral Tablet [Farxiga ] Farxiga 10 mg tablet TAKE ONE TABLET BY MOUTH EVERY DAY Farxiga 10 mg tablet TAKE ONE TABLET BY MOUTH EVERY DAY completed dapagliflozin 10 MG Or al Tablet [Farxiga] [facility] ([facility]) Sulfamethoxazole 800 MG / Trimethoprim 1 60 MG Oral Tablet sulfamethoxazole 800 mg-trimethoprim 160 mg tablet TAKE ONE TABLET BY MOUTH EVERY 12 HOURS sulfamethoxazole 800 mg-trimethoprim 160 mg tablet TAKE ONE TABLET BY MOUTH EVERY 12 HOURS completed sulfamethoxazole 800 MG / trimethoprim 160 MG Oral Tablet [facility] ([facility]) nitrofurantoin 100 mg tablet Take by oral route. [id number] completed nitrofurantoin 100 mg tablet [facility] ([facility]) Sulfamethoxazole 800 MG / Trimethoprim 1 60 MG Oral Tablet sulfamethoxazole 800 mg-trimethoprim 160 mg tablet TAKE ONE TABLET BY MOUTH EVERY 12 HOURS sulfamethoxazole 800 mg-trimethoprim 160 mg tablet TAKE ONE TABLET BY MOUTH EVERY 12 HOURS completed sulfamethoxazole 800 MG / trimethoprim 160 MG Oral Tablet [facility] ([facility]) 24 HR Bupropion Hydrochloride 150 MG Ext ended Release Oral Tablet bupropion HCl XL 150 mg 24 hr tablet, extended release TAKE ONE TABLET BY MOUTH EVERY MORNING WITH 300MG bupropion HCl XL 150 mg 24 hr tablet, ex tended release TAKE ONE TABLET BY MOUTH EVERY MORNING WITH 300MG completed 24 HR bupropion hydrochloride 150 MG Extended Release Oral Tablet [facility] ([facility]) Ondansetron 4 MG Oral Tablet ondansetron HCl 4 mg tablet TAKE ONE TABLET BY MOUTH FOUR TIMES A DAY NEEDED ondansetron HCl 4 mg tablet TAKE ONE TAB LET BY MOUTH FOUR TIMES A DAY NEEDED compl eted ondansetron 4 MG Oral Tablet [facility] ([facility]) 0.5 ML dulaglutide 1.5 MG/ML Auto-Inject or [Trulicity] Trulicity 0.75 mg/0.5 mL subcutaneous pen injector INJECT 0.5ML UNDER THE SKIN ONCE WEEKLY Trulicity 0.75 mg/0.5 mL subcutaneous pen injector INJECT 0.5ML UNDER THE SKIN ONCE WEEKLY completed 0.5 ML dulaglu tide 1.5 MG/ML Auto-Injector [Trulicity] [place] ([facility]) Clonidine Hydrochloride 0.1 MG Oral Tabl et clonidine HCl 0.1 mg tablet TAKE ONE TABLET BY MOUTH TWICE A DAY clonidine HCl 0.1 mg tablet TAKE ONE TAB LET BY MOUTH TWICE A DAY completed c lonidine hydrochloride 0.1 MG Oral Tablet [facility]) pantoprazole 40 MG Delayed Release Oral Tablet pantoprazole 40 mg tablet,delayed release pantoprazole 40 mg tablet,delayed release completed pantoprazole 40 MG Delayed Release Oral Tablet [place] ([facility]) venlafaxine 75 MG Oral Tablet venlafaxin e 75 mg tablet TAKE ONE TABLET BY MOUTH EVERY DAY WITH FOOD venlafaxine 75 mg tablet TAKE ONE TABLET BY MOUTH EVERY DAY WITH FOOD completed venlafaxine 75 MG Oral Tablet [place] ([facility]) Ciprofloxacin 500 MG Oral Tablet ciprofloxacin 500 mg tablet ciprofloxacin 500 mg tablet completed ciprofloxaci n 500 MG Oral Tablet [facility]) venlafaxine 75 MG Oral Tablet venlafaxin e 75 mg tablet TAKE ONE TABLET BY MOUTH EVERY DAY WITH FOOD venlafaxine 75 mg tablet TAKE ONE TABLET BY MOUTH EVERY DAY WITH FOOD completed venlafaxine 75 MG Oral Tablet [facility]) dapagliflozin 10 MG Oral Tablet [Farxiga ] Farxiga 10 mg tablet TAKE ONE TABLET BY MOUTH EVERY DAY Farxiga 10 mg tablet TAKE ONE TABLET BY MOUTH EVERY DAY completed dapagliflozin 10 MG Or al Tablet [Farxiga] [facility]) Ranitidine 150 MG Oral Tablet ranitidine 150 mg tablet TAKE ONE TABLET BY MOUTH TWICE A DAY ranitidine 150 mg tablet TAKE ONE TABLET BY MOUTH TWICE A DAY completed ranitidine 150 MG Or al Tablet [facility]) venlafaxine 75 MG Oral Tablet venlafaxin e 75 mg tablet TAKE ONE TABLET BY MOUTH EVERY DAY WITH FOOD venlafaxine 75 mg tablet TAKE ONE TABLET BY MOUTH EVERY DAY WITH FOOD completed venlafaxine 75 MG Oral Tablet [facility] ([facility]) 0.5 ML dulaglutide 3 MG/ML Auto-Injector [Trulicity] Trulicity 1.5 mg/0.5 mL subcutaneous pen injector INJECT ONE PEN UNDER THE SKIN ONCE WEEKLY Trulicity 1.5 mg/0.5 mL subcutaneous pen injector INJECT ONE PEN UNDER THE SKIN ONCE WEEKLY completed 0.5 ML dulaglutide 3 MG/ML Auto-Injector [Trulicity] [facility]ONEY ([facility]) Sulfamethoxazole 800 MG / Trimethoprim 1 60 MG Oral Tablet sulfamethoxazole 800 mg-trimethoprim 160 mg tablet TAKE ONE TABLET BY MOUTH EVERY 12 HOURS sulfamethoxazole 800 mg-trimethoprim 160 mg tablet TAKE ONE TABLET BY MOUTH EVERY 12 HOURS completed sulfamethoxazole 800 MG / trimethoprim 160 MG Oral Tablet [place] ([facility]) Ranitidine 150 MG Oral Tablet ranitidine 150 mg tablet TAKE ONE TABLET BY MOUTH TWICE A DAY ranitidine 150 mg tablet TAKE ONE TABLET BY MOUTH TWICE A DAY completed ranitidine 150 MG Or al Tablet [facility]ONE[facility] ([facility]) Clonidine Hydrochloride 0.1 MG Oral Tabl et clonidine HCl 0.1 mg tablet TAKE ONE TABLET BY MOUTH TWICE A DAY clonidine HCl 0.1 mg tablet TAKE ONE TAB LET BY MOUTH TWICE A DAY completed c lonidine hydrochloride 0.1 MG Oral Tablet [facility] ([facility]) dapagliflozin 10 MG Oral Tablet [Farxiga ] Farxiga 10 mg tablet TAKE ONE TABLET BY MOUTH EVERY DAY Farxiga 10 mg tablet TAKE ONE TABLET BY MOUTH EVERY DAY completed dapagliflozin 10 MG Or al Tablet [Farxiga] [facility]ONEY ([facility]) Sucralfate 1000 MG Oral Tablet sucralfat e 1 gram tablet TAKE ONE TABLET BY MOUTH FOUR TIMES A DAY NEEDED sucralfate 1 gram tablet TAKE ONE TABLET BY MOUTH FOUR TIMES A DAY NEEDED completed sucralfate 1000 MG Oral Tablet [place] ([facility]) Famotidine 20 MG Oral Tablet famotidine 20 mg tablet TAKE ONE TABLET BY MOUTH EVERY DAY AT BEDTIME NEEDED famotidine 20 mg tablet TAKE ONE TABLET BY MOUTH EVERY DAY AT BEDTIME NEEDED complet ed famotidine 20 MG Oral Tablet [facility] ([facility]) Ondansetron 4 MG Oral Tablet ondansetron HCl 4 mg tablet TAKE ONE TABLET BY MOUTH FOUR TIMES A DAY NEEDED ondansetron HCl 4 mg tablet TAKE ONE TAB LET BY MOUTH FOUR TIMES A DAY NEEDED compl eted ondansetron 4 MG Oral Tablet [facility] ([facility]) Cephalexin 500 MG Oral Capsule cephalexin 500 mg capsu le cephalexin 500 mg capsule completed cephalexin 500 MG Oral Capsule [place] ([facility]) venlafaxine 75 MG Oral Tablet venlafaxin e 75 mg tablet TAKE ONE TABLET BY MOUTH EVERY DAY WITH FOOD venlafaxine 75 mg tablet TAKE ONE TABLET BY MOUTH EVERY DAY WITH FOOD completed venlafaxine 75 MG Oral Tablet [place] ([facility]) Sulfamethoxazole 800 MG / Trimethoprim 1 60 MG Oral Tablet sulfamethoxazole 800 mg-trimethoprim 160 mg tablet TAKE ONE TABLET BY MOUTH EVERY 12 HOURS sulfamethoxazole 800 mg-trimethoprim 160 mg tablet TAKE ONE TABLET BY MOUTH EVERY 12 HOURS completed sulfamethoxazole 800 MG / trimethoprim 160 MG Oral Tablet [facility] ([facility]) Clonidine Hydrochloride 0.1 MG Oral Tabl et clonidine HCl 0.1 mg tablet TAKE ONE TABLET BY MOUTH TWICE A DAY clonidine HCl 0.1 mg tablet TAKE ONE TAB LET BY MOUTH TWICE A DAY completed c lonidine hydrochloride 0.1 MG Oral Tablet [facility] ([facility]) 24 HR Bupropion Hydrochloride 450 MG Ext ended Release Oral Tablet bupropion HCl XL 450 mg 24 hr tablet, extended release TAKE ONE TABLET BY MOUTH EVERY MORNING bupropion HCl XL 450 mg 24 hr tablet, extended release TAKE ONE TABLET BY MOUTH EVERY MORNING completed 24 HR bupropion hydrochloride 450 MG Extended Release Oral Tablet [facility] ([facility]) Ranitidine 150 MG Oral Tablet ranitidine 150 mg tablet TAKE ONE TABLET BY MOUTH TWICE A DAY ranitidine 150 mg tablet TAKE ONE TABLET BY MOUTH TWICE A DAY completed ranitidine 150 MG Or al Tablet [facility] ([facility]) 24 HR Bupropion Hydrochloride 450 MG Ext ended Release Oral Tablet bupropion HCl XL 450 mg 24 hr tablet, extended release TAKE ONE TABLET BY MOUTH EVERY MORNING bupropion HCl XL 450 mg 24 hr tablet, extended release TAKE ONE TABLET BY MOUTH EVERY MORNING completed 24 HR bupropion hydrochloride 450 MG Extended Release Oral Tablet [facility] ([facility]) Ondansetron 8 MG Disintegrating Oral Tab let ondansetron 8 mg disintegrating tablet DISSOLVE 1 TABLET UNDER THE TONGUE TWO TIMES A DAY ondansetron 8 mg disintegrating tablet DISSOLVE 1 TABLET UNDER THE TONGUE TWO TIMES A DAY completed ondansetron 8 MG Dis integrating Oral Tablet [facility] ([facility]) pantoprazole 40 MG Delayed Release Oral Tablet pantoprazole 40 mg tablet,delayed release pantoprazole 40 mg tablet,delayed release completed pantoprazole 40 MG Delayed Release Oral Tablet [place] ([facility]) Clonidine Hydrochloride 0.1 MG Oral Tabl et clonidine HCl 0.1 mg tablet TAKE ONE TABLET BY MOUTH TWICE A DAY clonidine HCl 0.1 mg tablet TAKE ONE TAB LET BY MOUTH TWICE A DAY completed c lonidine hydrochloride 0.1 MG Oral Tablet [place] ([facility]) nitrofurantoin 100 mg tablet Take by oral route. [id number] completed nitrofurantoin 100 mg tablet [place] ([facility]) doxycycline hyclate 100 MG Oral Capsule doxycycline hyclate 100 mg capsule TAKE ONE CAPSULE BY MOUTH TWICE A DAY doxycycline hyclate 100 mg capsule TAKE ONE CAPSULE BY MOUTH TWICE A DAY completed doxycycline hyclate 100 MG Oral Capsule [place] ([facility]) Insulin Glargine 100 UNT/ML Injectable S olution insulin glargine (LANTUS) 100 UNIT/ML vial insulin glargine (LANTUS) 100 UNIT/ML vial 65 U Subcutaneous aborted Inject 65 Units into the ski [facility] tramadol hydrochloride 50 MG Oral Tablet tramadol 50 m g tablet tramadol 50 mg tablet completed tramadol hydroc hloride 50 MG Oral Tablet [place] ([facility]) 24 HR Bupropion Hydrochloride 450 MG Ext ended Release Oral Tablet bupropion HCl XL 450 mg 24 hr tablet, extended release TAKE ONE TABLET BY MOUTH EVERY MORNING bupropion HCl XL 450 mg 24 hr tablet, extended release TAKE ONE TABLET BY MOUTH EVERY MORNING completed 24 HR bupropion hydrochloride 450 MG Extended Release Oral Tablet [place] ([facility]) nitrofurantoin 100 mg tablet Take by oral route. [id number] completed nitrofurantoin 100 mg tablet [place] ([facility]) Ondansetron 8 MG Disintegrating Oral Tab let ondansetron 8 mg disintegrating tablet DISSOLVE 1 TABLET UNDER THE TONGUE TWO TIMES A DAY ondansetron 8 mg disintegrating tablet DISSOLVE 1 TABLET UNDER THE TONGUE TWO TIMES A DAY completed ondansetron 8 MG Dis integrating Oral Tablet [facility] ([facility]) Cephalexin 500 MG Oral Capsule cephalexin 500 mg capsu le cephalexin 500 mg capsule completed cephalexin 500 MG Oral Capsule [place] ([facility]) Ciprofloxacin 500 MG Oral Tablet ciprofloxacin 500 mg tablet ciprofloxacin 500 mg tablet completed ciprofloxaci n 500 MG Oral Tablet [facility] ([facility]) Ciprofloxacin 500 MG Oral Tablet ciprofloxacin 500 mg tablet ciprofloxacin 500 mg tablet completed ciprofloxaci n 500 MG Oral Tablet [place] ([facility]) doxycycline hyclate 100 MG Oral Capsule doxycycline hyclate 100 mg capsule TAKE ONE CAPSULE BY MOUTH TWICE A DAY doxycycline hyclate 100 mg capsule TAKE ONE CAPSULE BY MOUTH TWICE A DAY completed doxycycline hyclate 100 MG Oral Capsule [place] ([facility]) Sucralfate 1000 MG Oral Tablet sucralfat e 1 gram tablet TAKE ONE TABLET BY MOUTH FOUR TIMES A DAY NEEDED sucralfate 1 gram tablet TAKE ONE TABLET BY MOUTH FOUR TIMES A DAY NEEDED completed sucralfate 1000 MG Oral Tablet [place] ([facility]) pantoprazole 40 MG Delayed Release Oral Tablet pantoprazole 40 mg tablet,delayed release pantoprazole 40 mg tablet,delayed release completed pantoprazole 40 MG Delayed Release Oral Tablet [place] ([facility]) dapagliflozin 10 MG Oral Tablet [Farxiga ] Farxiga 10 mg tablet TAKE ONE TABLET BY MOUTH EVERY DAY Farxiga 10 mg tablet TAKE ONE TABLET BY MOUTH EVERY DAY completed dapagliflozin 10 MG Or al Tablet [Farxiga] [place] ([facility]) celecoxib 100 MG Oral Capsule celecoxib 100 mg capsule celec oxib 100 mg capsule completed celecoxib 100 MG Oral Capsule [place] ([facility]) Cephalexin 500 MG Oral Capsule cephalexin 500 mg capsu le cephalexin 500 mg capsule completed cephalexin 500 MG Oral Capsule [place] ([facility]) pantoprazole 40 MG Delayed Release Oral Tablet pantoprazole 40 mg tablet,delayed release pantoprazole 40 mg tablet,delayed release completed pantoprazole 40 MG Delayed Release Oral Tablet [place] ([facility]) Ibuprofen 200 MG Oral Capsule ibuprofen 200 mg capsule Take 1 capsule every 6 hours by oral route. ibuprofen 200 mg capsule Take 1 capsule every 6 hours by oral route. 1 capsule(s) completed ibu profen 200 MG Oral Capsule [place] ([facility]) 24 HR Bupropion Hydrochloride 150 MG Ext ended Release Oral Tablet bupropion HCl XL 150 mg 24 hr tablet, extended release TAKE ONE TABLET BY MOUTH EVERY MORNING WITH 300MG bupropion HCl XL 150 mg 24 hr tablet, ex tended release TAKE ONE TABLET BY MOUTH EVERY MORNING WITH 300MG completed 24 HR bupropion hydrochloride 150 MG Extended Release Oral Tablet [place] ([facility]) 0.5 ML dulaglutide 1.5 MG/ML Auto-Inject or [Trulicity] Trulicity 0.75 mg/0.5 mL subcutaneous pen injector INJECT 0.5ML UNDER THE SKIN ONCE WEEKLY Trulicity 0.75 mg/0.5 mL subcutaneous pen injector INJECT 0.5ML UNDER THE SKIN ONCE WEEKLY completed 0.5 ML dulaglu tide 1.5 MG/ML Auto-Injector [Trulicity] [place] ([facility]) 0.5 ML dulaglutide 3 MG/ML Auto-Injector [Trulicity] Trulicity 1.5 mg/0.5 mL subcutaneous pen injector Trulicity 1.5 mg/0.5 mL subcutaneous pen injector completed 0.5 ML dulaglutide 3 M G/ML Auto-Injector [Trulicity] [place] ([facility]) Clindamycin 150 MG Oral Capsule clindamy fortino HCl 150 mg capsule TAKE THREE CAPSULES BY MOUTH THREE TIMES A DAY clindamycin HCl 150 mg capsule TAKE THRE E CAPSULES BY MOUTH THREE TIMES A DAY co mpleted clindamycin 150 MG Oral Capsule [place] ([facility]) Sucralfate 1000 MG Oral Tablet sucralfat e 1 gram tablet TAKE ONE TABLET BY MOUTH FOUR TIMES A DAY NEEDED sucralfate 1 gram tablet TAKE ONE TABLET BY MOUTH FOUR TIMES A DAY NEEDED completed sucralfate 1000 MG Oral Tablet [facility] ([facility]) Amoxicillin 875 MG / Clavulanate 125 MG Oral Tablet amoxicillin 875 mg-potassium clavulanate 125 mg tablet TAKE ONE TABLET BY MOUTH TWICE A DAY amoxicillin 875 mg-potassium clavulanate 125 mg tablet TAKE ONE TABLET BY MOUTH TWICE A DAY completed amoxicillin 875 MG / c lavulanate 125 MG Oral Tablet [place] ([facility]) doxycycline hyclate 100 MG Oral Capsule doxycycline hyclate 100 mg capsule TAKE ONE CAPSULE BY MOUTH TWICE A DAY doxycycline hyclate 100 mg capsule TAKE ONE CAPSULE BY MOUTH TWICE A DAY completed doxycycline hyclate 100 MG Oral Capsule [facility] ([facility]) Clonidine Hydrochloride 0.1 MG Oral Tabl et clonidine HCl 0.1 mg tablet TAKE ONE TABLET BY MOUTH TWICE A DAY clonidine HCl 0.1 mg tablet TAKE ONE TAB LET BY MOUTH TWICE A DAY completed c lonidine hydrochloride 0.1 MG Oral Tablet [facility] ([facility]) 0.5 ML dulaglutide 3 MG/ML Auto-Injector [Trulicity] Trulicity 1.5 mg/0.5 mL subcutaneous pen injector Trulicity 1.5 mg/0.5 mL subcutaneous pen injector completed 0.5 ML dulaglutide 3 M G/ML Auto-Injector [Trulicity] [facility] ([facility]) dapagliflozin 10 MG Oral Tablet [Farxiga ] Farxiga 10 mg tablet TAKE ONE TABLET BY MOUTH EVERY DAY Farxiga 10 mg tablet TAKE ONE TABLET BY MOUTH EVERY DAY completed dapagliflozin 10 MG Or al Tablet [Farxiga] [facility] ([facility]) Insurance Providers Payer name Policy type / Coverage type Policy ID Covered libertarian ID Covered libertarian's relationship to garcia Policy Garcia Plan Information [place] [id number] Self [id number] [place] [id number] Self 1 [id number] [place] Primary [id number] Self 1 [id number] [place] Medicare Primary [id number] [id number] Self [id number] [place] Medicare Primary [id number] Self 1 [id number] [place] Primary [id number] Self [id number] MEDICARE A [id number] Self [id number] A [place] [id number] [id number] Self [id number] [place] Medicare Primary [id number] Self Medicare [place] Medicare Primary [id number] [id number] Self 1 [id number] [place] Primary [id number] Self 1 [id number] [place] Medicare Primary [id number] Self [id number] [place] Medicare Primary [id number] [id number] Self 1 [id number] [place] Primary [id number] Self 1 [id number] MEDICARE A [id number] Self [id number] [place] Med[place] B [id number] [place] Medigap [place] [id number] Self [id number] MEDICAID M [id number] Self [id number] [facility] [place] Prescreption Plan C1 [id number] Medicaid [id number] [facility] Comm Dual Plan Commercial [id number] .11697.0 Self [facility] Medicare Advantage Medigap Part B [id number] Self [id number] UHC UNITED MEDICARE DUAL G [id number] Self [id number] [facility] Medicare Advantage [place] Dual Complete .[id number] Self [place] Dual Complete [facility] [id number] SP [id number] [facility] Other [id number] Self [facility] Plan Medigap Part B [id number] Self [id number] [facility] Community Plan Medigap Part B [id number] Self [id number] [facility] Plan Medigap Part B [id number] Self 1 [id number] Replaced By [facility] Medigap Part B [id number] Self [id number] [facility] Plan Medigap Part B [id number] Self 1 [id number] [facility] Plan Medigap Part B [id number] Self 1 [id number] [facility] Plan Medigap Part B [id number] Self 1 [id number] [facility] Plan Medigap Part B [id number] Self 1 [id number] ANSI-Medicare Part B [id number] Medicare Dme Supplies Medigap Part B [id number]9.0 Self 1 [id number] Medicare Dme Medigap Part B [id number] 2.16.840.1.523512.3.227.99 .936.63751.0 Self [id number] Medicaid Medicaid [id number]9.936.43347.0 S elf [id number] Medicare Medicare Primary [id number] 2.16.840.1.280686.3.227. 99.936.23661.0 Self [id number] Medicare Dme Supplies Medigap Part B [id number]1.06212.0 Self 1 [id number] ANSI-Medicare Part B [id number] ANSI-Medicaid [id number] ANSI-Medicaid [id number] ANSI-Medicare Part B [id number] ANSI-Medicaid [id number] ANSI-Medicare Part B [id number] ANSI-Medicare Part B [id number] ANSI-Medicaid [id number] ANSI-Medicaid [id number] [facility]-Medicare Part B [id number] ANS-Medicaid [id number] ANS-Medicare Part B [id number] Medicare [facility] Part B [id number] 2.16.0.1.402127.3.227.99 .936.39600.0 Self [id number] Medicaid Medicaid [id number] 2.16.840.1.466250.3.227.99.936.33614.0 S elf [id number] Medicare Medicare Primary [id number] 2.16.840.1.359888.3.227. 99.936.84462.0 Self [id number] ANSI-Medicaid [id number] ANS-Medicare Part B [id number] ANSI-Medicare Part B [id number] ANSI-Medicaid [id number] Medicare Dme [place] Part B [id number] 2.16.840.1.277822.3.227.99 .936.23950.0 Self [id number] Medicaid Medicaid [id number] 2.16.840.1.296618.3.227.99.936.25672.0 S elf [id number] Medicare Medicare Primary [id number] 2.16.840.1.649828.3.227. 99.936.97186.0 Self [id number] ANSI-Medicare Part B [id number] ANSI-Medicaid [id number] ANSI-Medicare Part B [id number] ANSI-Medicaid [id number] ANSI-Medicare Part B [id number] ANSI-Medicaid [id number] ANSI-Medicare Part B [id number] ANSI-Medicaid [id number] ANSI-Medicare Part B [id number] ANSI-Medicaid [id number] ANSI-Medicare Part B [id number] ANSI-Medicaid [id number] ANSI-Medicare Part B [id number] ANSI-Medicaid [id number] ANSI-Medicare Part B [id number] ANSI-Medicaid [id number] ANSI-Medicare Part B [id number] ANSI-Medicaid [id number] ANSI-Medicaid [id number] ANSI-Medicare Part B [id number] ANSI-Medicare Part B [id number] ANSI-Medicaid [id number] Medicaid - eYeka Jannie [id number] Medica id [id number] ID IDENTIFICATION [id number] 2.1.1 [id number] Other Insurance [id number] Medicare [id number] Medicare [id number] ANSI-Medicare Part B [id number] ANSI-Medicaid [id number] ANSI-Medicaid [id number] ANSI-Medicare Part B [id number] MEDICARE [id number] SP [id number] ANSI-Medicaid [id number] ANSI-Medicare Part B [id number] ANSI-Medicaid [id number] ANSI-Medicare Part B [id number] ANSI-Medicare Part B [id number] ANSI-Medicaid [id number] MEDICARE C [id number] S [id number] A Medicaid [place] Medigap Part B [id number] 2.16.840.1.349361.3.227.99 .8646.62497.0 Self [id number] Medicare [place] Medicare Primary [id number] 2.16.840.1.360111.3.227.99.8646.72786.0 Self [id number] Medicaid of [place] Other [id number] Self Medicare Dme Supplies Medigap Part B [id number] 2.16.840.1.036003.3.227.99.991.19995.0 Self [id number] Medicare Dme Supplies Medigap Part B [id number] 2.16.840.1.646830.3.227.99.991.36333.0 Self 1 [id number] Medicare Dme Supplies Medigap Part B [id number] 2.16.840.1.564522.3.227.99.991.66543.0 Self 1 [id number] Medicare Dme Medigap Part B [id number] 2.840.1.801765.3.227.99 .936.32251.0 Self [id number] Medicaid Medicaid [id number] 2.840.1.167498.3.227.99.936.71122.0 S elf [id number] Medicare Medicare Primary [id number] 2.16840.1.938611.3.227. 99.936.57956.0 Self [id number] Medicare Dme Medigap Part B [id number] 2.840.1.294857.3.227.99 .936.71084.0 Self [id number] Medicaid Medicaid [id number] 2.840.1.675506.3.227.99.936.47457.0 S elf [id number] Medicare Medicare Primary [id number] 2.16.840.1.655731.3.227. 99.936.46578.0 Self [id number] Medicare Dme Medigap Part B [id number] 2.16840.1.101678.3.227.99 .936.99620.0 Self [id number] Medicaid Medicaid [id number] 2.16840.1.218127.3.227.99.936.67757.0 S elf [id number] Medicare Medicare Primary [id number] 2.16.840.1.704552.3.227. 99.936.88066.0 Self [id number] Medicare Dme Medigap Part B [id number] 2.16.840.1.568069.3.227.99 .936.56001.0 Self [id number] Medicaid Medicaid [id number] 2.16.840.1.436557.3.227.99.936.33041.0 S elf [id number] Medicare Medicare Primary [id number] 2.16.840.1.124971.3.227. 99.936.29302.0 Self [id number] Medicare Dme Medigap Part B [id number] 2.16.840.1.990812.3.227.99 .936.68553.0 Self [id number] Medicaid Medicaid [id number] 2.16.840.1.542917.3.227.99.936.53576.0 S elf [id number] Medicare Medicare Primary [id number] 2.16840.1.805290.3.227. 99.936.91575.0 Self [id number] [facility] [id number] SP [id number] Medicaid [place] Medigap Part B [id number] 2.840.1.276903.3.227.99 .8646.70943.0 Self [id number] [facility] Health Maintenance Organization (HMO) [id number] 2.840.1.974033.3.227.99.8646.28968.0 Self [id number] [facility]) O [id number] S [id number] MEDICAID UNAVAILABLE UNAVAILA BLE [facility] [id number] SP [id number] [employer] UNAVAILABLE UNAVAILABLE Medicare Dme Supplies Medigap Part B [id number] Self [id number] Medicare Dme Supplies Medigap Part B [id number] Self [id number] Medicare Dme Supplies Medigap Part B [id number] Self [id number] Medicare Dme Supplies Medigap Part B [id number] Self 1 [id number] Medicare Medigap Part B [id number] Self Medicaid Medicaid [id number] Self Medicare Dme Medicare Primary [id number] Self Medicare Dme Supplies Medigap Part B [id number] Self [facility] O [id number] S [id number] MEDICARE [id number] SP [id number] A [facility] [id number] SP [id number] [place] [id number] A [facility] MEDICAID [id number] SP [id number] D [id number] MEDICARE [id number] SP [id number] [place] [id number] SP [id number] MEDICARE C [id number] S [id number] MEDICAID M [id number] S [id number] MEDICAID [id number] SP [id number] [facility]-Medicare Part B [id number] [facility]-Medicaid [id number] [facility]-Medicare Part B [id number] [facility]-Medicaid [id number] [facility]-Medicaid [id number] ANSI-Medicare Part B [id number] ANSI-Medicaid [id number] ANSI-Medicare Part B [id number] ANSI-Medicare Part B [id number] ANSI-Medicaid [id number] Medicare Dme Supplies Medigap Part B [id number] Self [id number] Medicare Dme Supplies Medigap Part B [id number] Self [id number] Medicare Dme Supplies Medigap Part B [id number] Self [id number] Medicare Dme Supplies Medigap Part B [id number] Self [id number] Medicare Dme Supplies Medigap Part B [id number] Self [id number] ANSI-Medicaid [id number] ANSI-Medicare Part B [id number] ANSI-Medicare Part B [id number] ANSI-Medicaid [id number] ANSI-Medicaid [id number] ANSI-Medicare Part B [id number] ANSI-Medicaid [id number] ANSI-Medicare Part B [id number] ANSI-Medicare Part B [id number] ANSI-Medicaid [id number] ANSI-Medicare Part B [id number] ANS-Medicaid [id number] [facility]-Medicaid [id number] Problems, Conditions, and Diagnoses Code Display Name Description Problem Type Effective Dates Data Source(s) Z86.69 Personal history of other di seases of the nervous system and sense organs Personal history of other diseases of the nervous syst em and sense organs Diagnosis 11/11/2020 12:47:39 PM EDT [facility] 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 Problem 02/23/2021 12:00:00 AM EST [facility] ([facility] M86.172 Acute osteomyelitis of ankle and/or foot Acute osteomyelitis of ankle and/or foot Problem 02/23/2021 12:00:00 AM EST [facility] ([facility] 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 Problem 02/24/20 21 12:00:00 AM EST [facility] ([facility] L03.032 Cellulitis of toe of left foot Cellulitis of toe of le ft foot Problem 02/23/2021 12:00:00 AM EST [facility] ([facility] F43.10 Post-traumatic stress disorder, unspecif ied Posttraumatic Stress Disorder (includes Posttraumatic Stress Disorder for Children 6 Years and Younger) Condition 02/03/2021 12:00:00 AM EDT [facility] ([facility]) F33.1 Major depressive disorder, recurrent, mo derate Major Depressive Disorder, Recurrent episode, Moderate Condition 02/03/2021 12:00:00 AM EDT [facility] ([facility]) F41.9 Anxiety disorder, unspecified Unspecified Anxiety Diso rder Condition 02/03/2021 12:00:00 AM EDT [facility] ([facility]) [id number] Carpal tunnel syndrome of right wrist Ca rpal Tunnel Syndrome of Right Wrist Problem 01/05/2021 12:00:00 AM EDT [facility] ([facility]) 58190003 Hyperlipidemia Hyperlipidemia Problem 01/05/2021 12:00: 00 AM EDT [facility] ([facility]) 690611395 Mild persistent asthma Mild Persistent Asthma Problem 09/01/2020 12:00:00 AM EDT [facility] ([facility]) 465195244 Mild persistent asthma Mild Persistent Asthma Problem 09/01/2020 12:00:00 AM EDT [facility] ([facility]) 268976020 Mild persistent asthma Mild Persistent Asthma Problem 09/01/2020 12:00:00 AM EDT [facility] ([facility]) 566590893 Mild persistent asthma Mild Persistent Asthma Problem 09/01/2020 12:00:00 AM EDT [facility] ([facility]) 644087374 Mild persistent asthma Mild Persistent Asthma Problem 09/01/2020 12:00:00 AM EDT [facility] ([facility]) 706738846 Mild persistent asthma Mild Persistent Asthma Problem 09/01/2020 12:00:00 AM EDT [facility] ([facility]) 235997024 Mild persistent asthma Mild Persistent Asthma Problem 09/01/2020 12:00:00 AM EDT [facility] ([facility]) 579424308 Mild persistent asthma Mild Persistent Asthma Problem 09/01/2020 12:00:00 AM EDT [facility] ([facility]) 893777325 Mild persistent asthma Mild Persistent Asthma Problem 09/01/2020 12:00:00 AM EDT [facility] ([facility]) 366723690 Mild persistent asthma Mild Persistent Asthma Problem 09/01/2020 12:00:00 AM EDT [facility] ([facility]) 830977670 Mild persistent asthma Mild Persistent Asthma Problem 09/01/2020 12:00:00 AM EDT [facility] ([facility]) 367715430 Mild persistent asthma Mild Persistent Asthma Problem 09/01/2020 12:00:00 AM EDT [facility] ([facility]) 569891013 Mild persistent asthma Mild Persistent Asthma Problem 09/01/2020 12:00:00 AM EDT [place] ([facility]) M20.42 Hammer toe Hammer toe Problem 08/08/2020 12:0 0:00 AM EDT - 09/28/2020 12:00:00 AM EDT [facility] ([facility] 343117367 Human papillomavirus deoxyri bonucleic acid test positive, high risk on cervical specimen Human Papillomavirus Deoxyribonucleic Ac id Test Positive, High Risk on Cervical Specimen Problem 07/27/2020 12:00:00 AM EDT AT [facility]) 422070259 Human papillomavirus deoxyri bonucleic acid test positive, high risk on cervical specimen Human Papillomavirus Deoxyribonucleic Ac id Test Positive, High Risk on Cervical Specimen Problem 07/27/2020 12:00:00 AM EDT AT [facility]) 558080078 Human papillomavirus deoxyri bonucleic acid test positive, high risk on cervical specimen Human Papillomavirus Deoxyribonucleic Ac id Test Positive, High Risk on Cervical Specimen Problem 07/27/2020 12:00:00 AM EDT AT [facility]) 079773624 Human papillomavirus deoxyri bonucleic acid test positive, high risk on cervical specimen Human Papillomavirus Deoxyribonucleic Ac id Test Positive, High Risk on Cervical Specimen Problem 07/27/2020 12:00:00 AM EDT AT [facility]) 599370326 Human papillomavirus deoxyri bonucleic acid test positive, high risk on cervical specimen Human Papillomavirus Deoxyribonucleic Ac id Test Positive, High Risk on Cervical Specimen Problem 07/27/2020 12:00:00 AM EDT AT [facility]) 244473487 Human papillomavirus deoxyri bonucleic acid test positive, high risk on cervical specimen Human Papillomavirus Deoxyribonucleic Ac id Test Positive, High Risk on Cervical Specimen Problem 07/27/2020 12:00:00 AM EDT AT [facility]) 299405578 Human papillomavirus deoxyri bonucleic acid test positive, high risk on cervical specimen Human Papillomavirus Deoxyribonucleic Ac id Test Positive, High Risk on Cervical Specimen Problem 07/27/2020 12:00:00 AM EDT AT [facility]) [id number] Human papillomavirus deoxyri bonucleic acid test positive, high risk on cervical specimen Human Papillomavirus Deoxyribonucleic Ac id Test Positive, High Risk on Cervical Specimen Problem 07/27/2020 12:00:00 AM EDT AT [facility]) 201409985 Human papillomavirus deoxyri bonucleic acid test positive, high risk on cervical specimen Human Papillomavirus Deoxyribonucleic Ac id Test Positive, High Risk on Cervical Specimen Problem 07/27/2020 12:00:00 AM EDT AT [facility]) 923534373 Human papillomavirus deoxyri bonucleic acid test positive, high risk on cervical specimen Human Papillomavirus Deoxyribonucleic Ac id Test Positive, High Risk on Cervical Specimen Problem 07/27/2020 12:00:00 AM EDT AT [facility]) 493307331 Human papillomavirus deoxyri bonucleic acid test positive, high risk on cervical specimen Human Papillomavirus Deoxyribonucleic Ac id Test Positive, High Risk on Cervical Specimen Problem 07/27/2020 12:00:00 AM EDT AT [facility]) 760298217 Human papillomavirus deoxyri bonucleic acid test positive, high risk on cervical specimen Human Papillomavirus Deoxyribonucleic Ac id Test Positive, High Risk on Cervical Specimen Problem 07/27/2020 12:00:00 AM EDT AT [facility]) 253625473 Human papillomavirus deoxyri bonucleic acid test positive, high risk on cervical specimen Human Papillomavirus Deoxyribonucleic Ac id Test Positive, High Risk on Cervical Specimen Problem 07/27/2020 12:00:00 AM EDT AT [facility]) 141446470 Human papillomavirus deoxyri bonucleic acid test positive, high risk on cervical specimen Human Papillomavirus Deoxyribonucleic Ac id Test Positive, High Risk on Cervical Specimen Problem 07/27/2020 12:00:00 AM EDT AT [facility] ([facility]) 586336253 Polycystic ovary syndrome Polycystic Ovary Syndrome Pr oblem 06/23/2020 12:00:00 AM EDT [facility] ([facility]) 666045051 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 Problem 06/23/2020 12:00:00 AM EDT [facility] ([facility]) 83608516 Sleep apnea Sleep Apnea Problem 06/23/2020 12:00:00 AM EDT [facility] ([facility]) 087602538 Fibromyalgia Fibromyalgia Problem 06/23/2020 12:00:00 A M EDT [facility] ([facility]) 91473648 Degeneration of intervertebral disc Dege neration of Intervertebral Disc Problem 06/23/2020 12:00:00 AM EDT [facility] ([facility]) 986486496 Osteoarthritis Osteoarthritis Problem 06/23/2020 12:00: 00 AM EDT [facility] ([facility]) 849725257 Gastroparesis syndrome Gastroparesis Syndrome Problem 06/23/2020 12:00:00 AM EDT [facility] ([facility]) 843382775 Gastroesophageal reflux disease Gastroesophageal Reflux Disease Problem 06/23/2020 12:00:00 AM EDT [facility] ([facility]) 75699244 Chronic obstructive lung disease Chronic Obstruc tive Lung Disease Problem 06/23/2020 12:00:00 AM EDT [facility] ([facility]) 097729400 Asthma Asthma Problem 06/23/2020 12:0 0:00 AM EDT - 09/01/2020 12:00:00 AM EDT [facility] ([facility]) 04930262 Migraine Migraine Problem 06/23/2020 12:00:00 AM ED T [facility] ([facility]) 349657490 Polycystic ovary syndrome Polycystic Ovary Syndrome Pr oblem 06/23/2020 12:00:00 AM EDT [facility] ([facility]) 469662835 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 Problem 06/23/2020 12:00:00 AM EDT [facility] ([facility]) 59479347 Sleep apnea Sleep Apnea Problem 06/23/2020 12:00:00 AM EDT [facility] ([facility]) 713228838 Fibromyalgia Fibromyalgia Problem 06/23/2020 12:00:00 A M EDT [facility] ([facility]) 97258207 Degeneration of intervertebral disc Dege neration of Intervertebral Disc Problem 06/23/2020 12:00:00 AM EDT [facility] ([facility]) 748954322 Osteoarthritis Osteoarthritis Problem 06/23/2020 12:00: 00 AM EDT [facility] ([facility]) 682740829 Gastroparesis syndrome Gastroparesis Syndrome Problem 06/23/2020 12:00:00 AM EDT [facility] ([facility]) 702938309 Gastroesophageal reflux disease Gastroesophageal Reflux Disease Problem 06/23/2020 12:00:00 AM EDT [facility] ([facility]) 09602669 Chronic obstructive lung disease Chronic Obstruc tive Lung Disease Problem 06/23/2020 12:00:00 AM EDT [facility] ([facility]) 213606836 Asthma Asthma Problem 06/23/2020 12:0 0:00 AM EDT - 09/01/2020 12:00:00 AM EDT [facility] ([facility]) 21499943 Migraine Migraine Problem 06/23/2020 12:00:00 AM ED T [facility] ([facility]) 04451146 Depressive disorder Depressive Disorder Problem 0 06/23/2020 12:00:00 AM EDT [facility] ([facility]) 08973340 Posttraumatic stress disorder Posttraumatic Stress Dis order Problem 06/23/2020 12:00:00 AM EDT [facility] ([facility]) 46689174 Anxiety Anxiety Problem 06/23/2020 12:00:00 AM ED T [facility] ([facility]) 58039893 Type 2 diabetes mellitus Type 2 Diabetes Mellitus Prob [place] 06/23/2020 12:00:00 AM EDT [facility] ([facility]) 366218665 Charcot's arthropathy Charcot's Arthropathy Problem 06/23/2020 12:00:00 AM EDT [facility] ([facility]) 762954675 Polycystic ovary syndrome Polycystic Ovary Syndrome Pr oblem 06/23/2020 12:00:00 AM EDT [facility] ([facility]) 419979861 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 Problem 06/23/2020 12:00:00 AM EDT [facility] ([facility]) 60368164 Sleep apnea Sleep Apnea Problem 06/23/2020 12:00:00 AM EDT [facility] ([facility]) 774008682 Fibromyalgia Fibromyalgia Problem 06/23/2020 12:00:00 A M EDT [facility] ([facility]) 22284354 Degeneration of intervertebral disc Dege neration of Intervertebral Disc Problem 06/23/2020 12:00:00 AM EDT [facility] ([facility]) 745512621 Osteoarthritis Osteoarthritis Problem 06/23/2020 12:00: 00 AM EDT [facility] ([facility]) 932119527 Gastroparesis syndrome Gastroparesis Syndrome Problem 06/23/2020 12:00:00 AM EDT [facility] ([facility]) 301038104 Gastroesophageal reflux disease Gastroesophageal Reflux Disease Problem 06/23/2020 12:00:00 AM EDT [facility] ([facility]) 12699216 Chronic obstructive lung disease Chronic Obstruc tive Lung Disease Problem 06/23/2020 12:00:00 AM EDT [facility] ([facility]) 020865071 Asthma Asthma Problem 06/23/2020 12:0 0:00 AM EDT - 09/01/2020 12:00:00 AM EDT [facility] ([facility]) 24654318 Migraine Migraine Problem 06/23/2020 12:00:00 AM ED T [facility] ([facility]) 43449144 Depressive disorder Depressive Disorder Problem 0 06/23/2020 12:00:00 AM EDT [facility] ([facility]) 42480638 Posttraumatic stress disorder Posttraumatic Stress Dis order Problem 06/23/2020 12:00:00 AM EDT [facility] ([facility]) 79877237 Anxiety Anxiety Problem 06/23/2020 12:00:00 AM ED T [facility] ([facility]) 30777580 Type 2 diabetes mellitus Type 2 Diabetes Mellitus Prob [place] 06/23/2020 12:00:00 AM EDT [facility] ([facility]) 210791627 Charcot's arthropathy Charcot's Arthropathy Problem 06/23/2020 12:00:00 AM EDT [facility] ([facility]) 788770003 Charcot's arthropathy Charcot's Arthropathy Problem 06/23/2020 12:00:00 AM EDT [facility] ([facility]) 380535313 Polycystic ovary syndrome Polycystic Ovary Syndrome Pr oblem 06/23/2020 12:00:00 AM EDT [facility] ([facility]) 695411495 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 Problem 06/23/2020 12:00:00 AM EDT [facility] ([facility]) 01129661 Sleep apnea Sleep Apnea Problem 06/23/2020 12:00:00 AM EDT [facility] ([facility]) 794169581 Fibromyalgia Fibromyalgia Problem 06/23/2020 12:00:00 A M EDT [facility] ([facility]) 70936316 Degeneration of intervertebral disc Dege neration of Intervertebral Disc Problem 06/23/2020 12:00:00 AM EDT [facility] ([facility]) 725353563 Osteoarthritis Osteoarthritis Problem 06/23/2020 12:00: 00 AM EDT [facility] ([facility]) 474472067 Gastroparesis syndrome Gastroparesis Syndrome Problem 06/23/2020 12:00:00 AM EDT [facility] ([facility]) 679442189 Gastroesophageal reflux disease Gastroesophageal Reflux Disease Problem 06/23/2020 12:00:00 AM EDT [facility] ([facility]) 88138543 Chronic obstructive lung disease Chronic Obstruc tive Lung Disease Problem 06/23/2020 12:00:00 AM EDT [facility] ([facility]) 290950083 Asthma Asthma Problem 06/23/2020 12:0 0:00 AM EDT - 09/01/2020 12:00:00 AM EDT [facility] ([facility]) 53644597 Migraine Migraine Problem 06/23/2020 12:00:00 AM ED T [facility] ([facility]) 46609054 Depressive disorder Depressive Disorder Problem 0 06/23/2020 12:00:00 AM EDT [facility] ([facility]) 01452291 Posttraumatic stress disorder Posttraumatic Stress Dis order Problem 06/23/2020 12:00:00 AM EDT [facility] ([facility]) 13990906 Anxiety Anxiety Problem 06/23/2020 12:00:00 AM ED T [facility] ([facility]) 42604414 Type 2 diabetes mellitus Type 2 Diabetes Mellitus Prob [place] 06/23/2020 12:00:00 AM EDT [facility] ([facility]) 524061476 Charcot's arthropathy Charcot's Arthropathy Problem 06/23/2020 12:00:00 AM EDT [facility] ([facility]) 714426737 Polycystic ovary syndrome Polycystic Ovary Syndrome Pr oblem 06/23/2020 12:00:00 AM EDT [facility] ([facility]) 966657970 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 Problem 06/23/2020 12:00:00 AM EDT [facility] ([facility]) 23891929 Sleep apnea Sleep Apnea Problem 06/23/2020 12:00:00 AM EDT [facility] ([facility]) 246912019 Fibromyalgia Fibromyalgia Problem 06/23/2020 12:00:00 A M EDT [facility] ([facility]) 45127844 Degeneration of intervertebral disc Dege neration of Intervertebral Disc Problem 06/23/2020 12:00:00 AM EDT [facility] ([facility]) 691774854 Osteoarthritis Osteoarthritis Problem 06/23/2020 12:00: 00 AM EDT [facility] ([facility]) 742993564 Gastroparesis syndrome Gastroparesis Syndrome Problem 06/23/2020 12:00:00 AM EDT [facility] ([facility]) 078948694 Gastroesophageal reflux disease Gastroesophageal Reflux Disease Problem 06/23/2020 12:00:00 AM EDT [facility] ([facility]) 01464464 Chronic obstructive lung disease Chronic Obstruc tive Lung Disease Problem 06/23/2020 12:00:00 AM EDT [facility] ([facility]) 585372035 Asthma Asthma Problem 06/23/2020 12:0 0:00 AM EDT - 09/01/2020 12:00:00 AM EDT [facility] ([facility]) 09853007 Migraine Migraine Problem 06/23/2020 12:00:00 AM ED T [facility] ([facility]) 26557608 Depressive disorder Depressive Disorder Problem 0 06/23/2020 12:00:00 AM EDT [facility] ([facility]) 58479771 Posttraumatic stress disorder Posttraumatic Stress Dis order Problem 06/23/2020 12:00:00 AM EDT [facility] ([facility]) 11820718 Anxiety Anxiety Problem 06/23/2020 12:00:00 AM ED T [facility] ([facility]) 01899059 Type 2 diabetes mellitus Type 2 Diabetes Mellitus Prob [place] 06/23/2020 12:00:00 AM EDT [facility] ([facility]) 113483825 Charcot's arthropathy Charcot's Arthropathy Problem 06/23/2020 12:00:00 AM EDT [facility] ([facility]) 00538774 Depressive disorder Depressive Disorder Problem 0 06/23/2020 12:00:00 AM EDT [facility] ([facility]) 45121880 Posttraumatic stress disorder Posttraumatic Stress Dis order Problem 06/23/2020 12:00:00 AM EDT [facility] ([facility]) 49130388 Anxiety Anxiety Problem 06/23/2020 12:00:00 AM ED T [facility] ([facility]) 58964975 Type 2 diabetes mellitus Type 2 Diabetes Mellitus Prob [place] 06/23/2020 12:00:00 AM EDT [facility] ([facility]) 163748176 Charcot's arthropathy Charcot's Arthropathy Problem 06/23/2020 12:00:00 AM EDT [facility] ([facility]) 760016391 Polycystic ovary syndrome Polycystic Ovary Syndrome Pr oblem 06/23/2020 12:00:00 AM EDT [facility] ([facility]) 142109598 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 Problem 06/23/2020 12:00:00 AM EDT [facility] ([facility]) 64588293 Sleep apnea Sleep Apnea Problem 06/23/2020 12:00:00 AM EDT [facility] ([facility]) 132537748 Fibromyalgia Fibromyalgia Problem 06/23/2020 12:00:00 A M EDT [facility] ([facility]) 69245125 Degeneration of intervertebral disc Dege neration of Intervertebral Disc Problem 06/23/2020 12:00:00 AM EDT [facility] ([facility]) 959567208 Osteoarthritis Osteoarthritis Problem 06/23/2020 12:00: 00 AM EDT [facility] ([facility]) 107313469 Gastroparesis syndrome Gastroparesis Syndrome Problem 06/23/2020 12:00:00 AM EDT [facility] ([facility]) 712032389 Gastroesophageal reflux disease Gastroesophageal Reflux Disease Problem 06/23/2020 12:00:00 AM EDT [facility] ([facility]) 89306474 Chronic obstructive lung disease Chronic Obstruc tive Lung Disease Problem 06/23/2020 12:00:00 AM EDT [facility] ([facility]) 206478054 Asthma Asthma Problem 06/23/2020 12:0 0:00 AM EDT - 09/01/2020 12:00:00 AM EDT [facility] ([facility]) 08169082 Migraine Migraine Problem 06/23/2020 12:00:00 AM ED T [facility] ([facility]) 73124011 Depressive disorder Depressive Disorder Problem 0 06/23/2020 12:00:00 AM EDT [facility] ([facility]) 39859359 Posttraumatic stress disorder Posttraumatic Stress Dis order Problem 06/23/2020 12:00:00 AM EDT [facility] ([facility]) 36201542 Anxiety Anxiety Problem 06/23/2020 12:00:00 AM ED T [facility] ([facility]) 77395737 Type 2 diabetes mellitus Type 2 Diabetes Mellitus Prob [place] 06/23/2020 12:00:00 AM EDT [facility] ([facility]) 651689966 Charcot's arthropathy Charcot's Arthropathy Problem 06/23/2020 12:00:00 AM EDT [facility] ([facility]) 442631869 Osteoarthritis Osteoarthritis Problem 06/23/2020 12:00: 00 AM EDT [facility] ([facility]) 825111513 Gastroparesis syndrome Gastroparesis Syndrome Problem 06/23/2020 12:00:00 AM EDT [facility]ONE[facility] ([facility]) [id number] Gastroesophageal reflux disease Gastroesophageal Reflux Disease Problem 06/23/2020 12:00:00 AM EDT TONEY ([facility]) 38813370 Chronic obstructive lung disease Chronic Obstruc tive Lung Disease Problem 06/23/2020 12:00:00 AM EDT [facility]ONEY ([facility]) [id number] Asthma Asthma Problem 06/23/2020 12:0 0:00 AM EDT - 09/01/2020 12:00:00 AM EDT [facility]ONEY ([facility]) 97372131 Migraine Migraine Problem 06/23/2020 12:00:00 AM ED T [facility]ONE[facility] ([facility]) 78021812 Depressive disorder Depressive Disorder Problem 0 06/23/2020 12:00:00 AM EDT [facility]ONEY ([facility]) 13148653 Posttraumatic stress disorder Posttraumatic Stress Dis order Problem 06/23/2020 12:00:00 AM EDT [facility]ONEY ([facility]) 20001101 Anxiety Anxiety Problem 06/23/2020 12:00:00 AM ED T TONEY ([facility]) 44944050 Type 2 diabetes mellitus Type 2 Diabetes Mellitus Prob [place] 06/23/2020 12:00:00 AM EDT [facility]ONEY ([facility]) 610189245 Charcot's arthropathy Charcot's Arthropathy Problem 06/23/2020 12:00:00 AM EDT [facility]ONE[facility] ([facility]) 124382063 Polycystic ovary syndrome Polycystic Ovary Syndrome Pr oblem 06/23/2020 12:00:00 AM EDT [facility]ONEY ([facility]) 599380371 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 Problem 06/23/2020 12:00:00 AM EDT [facility]ONEY ([facility]) 19353672 Sleep apnea Sleep Apnea Problem 06/23/2020 12:00:00 AM EDT TONEY ([facility]) 860017784 Fibromyalgia Fibromyalgia Problem 06/23/2020 12:00:00 A M EDT [facility]ONEY ([facility]) 69041359 Degeneration of intervertebral disc Dege neration of Intervertebral Disc Problem 06/23/2020 12:00:00 AM EDT [facility]ONE[facility] ([facility]) 602601084 Osteoarthritis Osteoarthritis Problem 06/23/2020 12:00: 00 AM EDT [facility]ONEY ([facility]) 081895196 Gastroparesis syndrome Gastroparesis Syndrome Problem 06/23/2020 12:00:00 AM EDT TONEY ([facility]) 303875353 Gastroesophageal reflux disease Gastroesophageal Reflux Disease Problem 06/23/2020 12:00:00 AM EDT TONEY ([facility]) 78265246 Chronic obstructive lung disease Chronic Obstruc tive Lung Disease Problem 06/23/2020 12:00:00 AM EDT [facility]ONE[facility] ([facility]) 885077329 Asthma Asthma Problem 06/23/2020 12:0 0:00 AM EDT - 09/01/2020 12:00:00 AM EDT [facility]ONE[facility] ([facility]) 97476747 Migraine Migraine Problem 06/23/2020 12:00:00 AM ED T TONE[facility] ([facility]) 98262310 Depressive disorder Depressive Disorder Problem 0 06/23/2020 12:00:00 AM EDT [facility]ONE[facility] ([facility]) 04542050 Posttraumatic stress disorder Posttraumatic Stress Dis order Problem 06/23/2020 12:00:00 AM EDT [facility]ONE[facility] ([facility]) 92241977 Anxiety Anxiety Problem 06/23/2020 12:00:00 AM ED T [facility]ONE[facility] ([facility]) 38306619 Type 2 diabetes mellitus Type 2 Diabetes Mellitus Prob [place] 06/23/2020 12:00:00 AM EDT [facility]ONE[facility] ([facility]) 256859265 Charcot's arthropathy Charcot's Arthropathy Problem 06/23/2020 12:00:00 AM EDT [facility]ONE[facility] ([facility]) 019608620 Polycystic ovary syndrome Polycystic Ovary Syndrome Pr oblem 06/23/2020 12:00:00 AM EDT [facility]ONE[facility] ([facility]) 414817724 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 Problem 06/23/2020 12:00:00 AM EDT [facility]ONE[facility] ([facility]) 50007294 Sleep apnea Sleep Apnea Problem 06/23/2020 12:00:00 AM EDT [facility]ONE[facility] ([facility]) 806046852 Fibromyalgia Fibromyalgia Problem 06/23/2020 12:00:00 A M EDT [facility]ONE[facility] ([facility]) 72166963 Degeneration of intervertebral disc Dege neration of Intervertebral Disc Problem 06/23/2020 12:00:00 AM EDT [facility]ONE[facility] ([facility]) 493814517 Osteoarthritis Osteoarthritis Problem 06/23/2020 12:00: 00 AM EDT [facility]ONE[facility] ([facility]) 443542934 Gastroparesis syndrome Gastroparesis Syndrome Problem 06/23/2020 12:00:00 AM EDT [facility]ONEY ([facility]) 421807424 Gastroesophageal reflux disease Gastroesophageal Reflux Disease Problem 06/23/2020 12:00:00 AM EDT [facility]ONEY ([facility]) 64521147 Chronic obstructive lung disease Chronic Obstruc tive Lung Disease Problem 06/23/2020 12:00:00 AM EDT [facility]ONE[facility] ([facility]) 439003247 Asthma Asthma Problem 06/23/2020 12:0 0:00 AM EDT - 09/01/2020 12:00:00 AM EDT [facility]ONE[facility] ([facility]) 41206681 Migraine Migraine Problem 06/23/2020 12:00:00 AM ED T [facility]ONE[facility] ([facility]) 97434423 Depressive disorder Depressive Disorder Problem 0 06/23/2020 12:00:00 AM EDT [facility]ONE[facility] ([facility]) 36772418 Posttraumatic stress disorder Posttraumatic Stress Dis order Problem 06/23/2020 12:00:00 AM EDT [facility]ONE[facility] ([facility]) 88678844 Anxiety Anxiety Problem 06/23/2020 12:00:00 AM ED T [facility]ONEY ([facility]) 15705032 Type 2 diabetes mellitus Type 2 Diabetes Mellitus Prob [place] 06/23/2020 12:00:00 AM EDT [facility]ONE[facility] ([facility]) 939345530 Charcot's arthropathy Charcot's Arthropathy Problem 06/23/2020 12:00:00 AM EDT [facility]ONE[facility] ([facility]) 137425492 Polycystic ovary syndrome Polycystic Ovary Syndrome Pr oblem 06/23/2020 12:00:00 AM EDT [facility]ONE[facility] ([facility]) 489620482 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 Problem 06/23/2020 12:00:00 AM EDT [facility]ONE[facility] ([facility]) 97940239 Sleep apnea Sleep Apnea Problem 06/23/2020 12:00:00 AM EDT [facility]ONE[facility] ([facility]) 009602669 Fibromyalgia Fibromyalgia Problem 06/23/2020 12:00:00 A M EDT [facility]ONE[facility] ([facility]) 14608650 Degeneration of intervertebral disc Dege neration of Intervertebral Disc Problem 06/23/2020 12:00:00 AM EDT [facility]ONE[facility] ([facility]) 828405842 Osteoarthritis Osteoarthritis Problem 06/23/2020 12:00: 00 AM EDT [facility] ([facility]) 809097298 Gastroparesis syndrome Gastroparesis Syndrome Problem 06/23/2020 12:00:00 AM EDT [facility]ONE[facility] ([facility]) 387094753 Gastroesophageal reflux disease Gastroesophageal Reflux Disease Problem 06/23/2020 12:00:00 AM EDT [facility]ONE[facility] ([facility]) 65059014 Chronic obstructive lung disease Chronic Obstruc tive Lung Disease Problem 06/23/2020 12:00:00 AM EDT [facility]ONE[facility] ([facility]) 505916741 Asthma Asthma Problem 06/23/2020 12:0 0:00 AM EDT - 09/01/2020 12:00:00 AM EDT [facility]ONE[facility] ([facility]) 82271858 Migraine Migraine Problem 06/23/2020 12:00:00 AM ED T [facility]ONE[facility] ([facility]) 67912783 Depressive disorder Depressive Disorder Problem 0 06/23/2020 12:00:00 AM EDT [facility]ONE[facility] ([facility]) 74470584 Posttraumatic stress disorder Posttraumatic Stress Dis order Problem 06/23/2020 12:00:00 AM EDT [facility]ONE[facility] ([facility]) 29464697 Anxiety Anxiety Problem 06/23/2020 12:00:00 AM ED T OTNEY ([facility]) 71322970 Type 2 diabetes mellitus Type 2 Diabetes Mellitus Prob [place] 06/23/2020 12:00:00 AM EDT [facility]ONE[facility] ([facility]) 988281898 Polycystic ovary syndrome Polycystic Ovary Syndrome Pr oblem 06/23/2020 12:00:00 AM EDT [facility] ([facility]) 465659538 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 Problem 06/23/2020 12:00:00 AM EDT [facility]ONE[facility] ([facility]) 43039433 Sleep apnea Sleep Apnea Problem 06/23/2020 12:00:00 AM EDT [facility]ONE[facility] ([facility]) 209591090 Fibromyalgia Fibromyalgia Problem 06/23/2020 12:00:00 A M EDT [facility] ([facility]) 12944538 Degeneration of intervertebral disc Dege neration of Intervertebral Disc Problem 06/23/2020 12:00:00 AM EDT [facility] ([facility]) 020910247 Osteoarthritis Osteoarthritis Problem 06/23/2020 12:00: 00 AM EDT [facility]ONE[facility] ([facility]) 002315741 Gastroparesis syndrome Gastroparesis Syndrome Problem 06/23/2020 12:00:00 AM EDT [facility]ONE[facility] ([facility]) 360605918 Gastroesophageal reflux disease Gastroesophageal Reflux Disease Problem 06/23/2020 12:00:00 AM EDT [facility]ONE[facility] ([facility]) 48876814 Chronic obstructive lung disease Chronic Obstruc tive Lung Disease Problem 06/23/2020 12:00:00 AM EDT [facility]ONE[facility] ([facility]) 695656351 Polycystic ovary syndrome Polycystic Ovary Syndrome Pr oblem 06/23/2020 12:00:00 AM EDT [facility] ([facility]) 076165016 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 Problem 06/23/2020 12:00:00 AM EDT [facility]ONE[facility] ([facility]) 85674649 Sleep apnea Sleep Apnea Problem 06/23/2020 12:00:00 AM EDT [facility]ONE[facility] ([facility]) 783352476 Fibromyalgia Fibromyalgia Problem 06/23/2020 12:00:00 A M EDT [facility] ([facility]) 94321394 Degeneration of intervertebral disc Dege neration of Intervertebral Disc Problem 06/23/2020 12:00:00 AM EDT [facility]ONE[facility] ([facility]) 187350089 Osteoarthritis Osteoarthritis Problem 06/23/2020 12:00: 00 AM EDT [facility]ONE[facility] ([facility]) 423684345 Gastroparesis syndrome Gastroparesis Syndrome Problem 06/23/2020 12:00:00 AM EDT [facility]ONE[facility] ([facility]) 224123692 Gastroesophageal reflux disease Gastroesophageal Reflux Disease Problem 06/23/2020 12:00:00 AM EDT [facility]ONE[facility] ([facility]) 33532389 Chronic obstructive lung disease Chronic Obstruc tive Lung Disease Problem 06/23/2020 12:00:00 AM EDT [facility]ONE[facility] ([facility]) 844317419 Asthma Asthma Problem 06/23/2020 12:0 0:00 AM EDT - 09/01/2020 12:00:00 AM EDT [facility] ([facility]) 68816206 Migraine Migraine Problem 06/23/2020 12:00:00 AM ED T [facility]ONE[facility] ([facility]) 51926555 Depressive disorder Depressive Disorder Problem 0 06/23/2020 12:00:00 AM EDT [facility] ([facility]) 98058064 Posttraumatic stress disorder Posttraumatic Stress Dis order Problem 06/23/2020 12:00:00 AM EDT [facility] ([facility]) 95386260 Anxiety Anxiety Problem 06/23/2020 12:00:00 AM ED T [facility]ONE[facility] ([facility]) 23088774 Type 2 diabetes mellitus Type 2 Diabetes Mellitus Prob [place] 06/23/2020 12:00:00 AM EDT [facility]ONE[facility] ([facility]) 599270527 Charcot's arthropathy Charcot's Arthropathy Problem 06/23/2020 12:00:00 AM EDT [facility]ONE[facility] ([facility]) 607648681 Polycystic ovary syndrome Polycystic Ovary Syndrome Pr oblem 06/23/2020 12:00:00 AM EDT [facility] ([facility]) 614755563 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 Problem 06/23/2020 12:00:00 AM EDT [facility]ONE[facility] ([facility]) 91735933 Sleep apnea Sleep Apnea Problem 06/23/2020 12:00:00 AM EDT [facility]ONE[facility] ([facility]) 247545770 Fibromyalgia Fibromyalgia Problem 06/23/2020 12:00:00 A M EDT [facility] ([facility]) 80437722 Degeneration of intervertebral disc Dege neration of Intervertebral Disc Problem 06/23/2020 12:00:00 AM EDT [facility]ONE[facility] ([facility]) 553635266 Osteoarthritis Osteoarthritis Problem 06/23/2020 12:00: 00 AM EDT [facility]ONE[facility] ([facility]) 055684698 Gastroparesis syndrome Gastroparesis Syndrome Problem 06/23/2020 12:00:00 AM EDT [facility]ONE[facility] ([facility]) 235435726 Gastroesophageal reflux disease Gastroesophageal Reflux Disease Problem 06/23/2020 12:00:00 AM EDT [facility]ONE[facility] ([facility]) 65546234 Chronic obstructive lung disease Chronic Obstruc tive Lung Disease Problem 06/23/2020 12:00:00 AM EDT [facility]ONE[facility] ([facility]) 769813248 Asthma Asthma Problem 06/23/2020 12:0 0:00 AM EDT - 09/01/2020 12:00:00 AM EDT [facility] ([facility]) 88609762 Migraine Migraine Problem 06/23/2020 12:00:00 AM ED T [facility] ([facility]) 68664755 Depressive disorder Depressive Disorder Problem 0 06/23/2020 12:00:00 AM EDT [facility]ONE[facility] ([facility]) 01628366 Posttraumatic stress disorder Posttraumatic Stress Dis order Problem 06/23/2020 12:00:00 AM EDT [facility]ONE[facility] ([facility]) 03037831 Anxiety Anxiety Problem 06/23/2020 12:00:00 AM ED T [facility] ([facility]) 79892502 Type 2 diabetes mellitus Type 2 Diabetes Mellitus Prob [place] 06/23/2020 12:00:00 AM EDT [facility] ([facility]) 306507766 Charcot's arthropathy Charcot's Arthropathy Problem 06/23/2020 12:00:00 AM EDT [facility]ONE[facility] ([facility]) 667741912 Polycystic ovary syndrome Polycystic Ovary Syndrome Pr oblem 06/23/2020 12:00:00 AM EDT [facility] ([facility]) 484368429 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 Problem 06/23/2020 12:00:00 AM EDT [facility]ONE[facility] ([facility]) 72572040 Sleep apnea Sleep Apnea Problem 06/23/2020 12:00:00 AM EDT [facility]ONE[facility] ([facility]) 367288472 Fibromyalgia Fibromyalgia Problem 06/23/2020 12:00:00 A M EDT [facility] ([facility]) 14383122 Degeneration of intervertebral disc Dege neration of Intervertebral Disc Problem 06/23/2020 12:00:00 AM EDT [facility]ONE[facility] ([facility]) 515380267 Polycystic ovary syndrome Polycystic Ovary Syndrome Pr oblem 06/23/2020 12:00:00 AM EDT [facility]ONE[facility] ([facility]) 366693895 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 Problem 06/23/2020 12:00:00 AM EDT [facility]ONE[facility] ([facility]) 47867497 Sleep apnea Sleep Apnea Problem 06/23/2020 12:00:00 AM EDT [facility]ONE[facility] ([facility]) 920837289 Fibromyalgia Fibromyalgia Problem 06/23/2020 12:00:00 A M EDT [facility]ONE[facility] ([facility]) 87462301 Degeneration of intervertebral disc Dege neration of Intervertebral Disc Problem 06/23/2020 12:00:00 AM EDT [facility] ([facility]) 666426784 Osteoarthritis Osteoarthritis Problem 06/23/2020 12:00: 00 AM EDT [facility]ONE[facility] ([facility]) 422899479 Gastroparesis syndrome Gastroparesis Syndrome Problem 06/23/2020 12:00:00 AM EDT [facility]ONE[facility] ([facility]) 211642272 Gastroesophageal reflux disease Gastroesophageal Reflux Disease Problem 06/23/2020 12:00:00 AM EDT [facility]ONE[facility] ([facility]) 71216006 Chronic obstructive lung disease Chronic Obstruc tive Lung Disease Problem 06/23/2020 12:00:00 AM EDT [facility]ONE[facility] ([facility]) 342597708 Asthma Asthma Problem 06/23/2020 12:00:00 AM ED T [facility]ONE[facility] ([facility]) 92349213 Migraine Migraine Problem 06/23/2020 12:00:00 AM ED T [facility] ([facility]) 90638738 Depressive disorder Depressive Disorder Problem 0 06/23/2020 12:00:00 AM EDT [facility] ([facility]) 49240132 Posttraumatic stress disorder Posttraumatic Stress Dis order Problem 06/23/2020 12:00:00 AM EDT [facility]ONE[facility] ([facility]) 30941843 Anxiety Anxiety Problem 06/23/2020 12:00:00 AM ED T [facility] ([facility]) 68874013 Type 2 diabetes mellitus Type 2 Diabetes Mellitus Prob [place] 06/23/2020 12:00:00 AM EDT [facility] ([facility]) 682385349 Charcot's arthropathy Charcot's Arthropathy Problem 06/23/2020 12:00:00 AM EDT [facility] ([facility]) 141760252 Polycystic ovary syndrome Polycystic Ovary Syndrome Pr oblem 06/23/2020 12:00:00 AM EDT [facility] ([facility]) 584343969 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 Problem 06/23/2020 12:00:00 AM EDT [facility] ([facility]) 63956519 Sleep apnea Sleep Apnea Problem 06/23/2020 12:00:00 AM EDT [facility]ONE[facility] ([facility]) 613400490 Fibromyalgia Fibromyalgia Problem 06/23/2020 12:00:00 A M EDT [facility] ([facility]) 42703968 Degeneration of intervertebral disc Dege neration of Intervertebral Disc Problem 06/23/2020 12:00:00 AM EDT [facility] ([facility]) 709485300 Osteoarthritis Osteoarthritis Problem 06/23/2020 12:00: 00 AM EDT [facility] ([facility]) 056575710 Gastroparesis syndrome Gastroparesis Syndrome Problem 06/23/2020 12:00:00 AM EDT [facility] ([facility]) 817451820 Gastroesophageal reflux disease Gastroesophageal Reflux Disease Problem 06/23/2020 12:00:00 AM EDT [facility]ONE[facility] ([facility]) 24130901 Chronic obstructive lung disease Chronic Obstruc tive Lung Disease Problem 06/23/2020 12:00:00 AM EDT [facility]ONE[facility] ([facility]) 163602876 Asthma Asthma Problem 06/23/2020 12:00:00 AM ED T [facility] ([facility]) 74918541 Migraine Migraine Problem 06/23/2020 12:00:00 AM ED T [facility] ([facility]) 47278424 Depressive disorder Depressive Disorder Problem 0 06/23/2020 12:00:00 AM EDT [facility] ([facility]) 96252125 Posttraumatic stress disorder Posttraumatic Stress Dis order Problem 06/23/2020 12:00:00 AM EDT [facility]ONE[facility] ([facility]) 21422671 Anxiety Anxiety Problem 06/23/2020 12:00:00 AM ED T [facility]ONE[facility] ([facility]) 23811607 Type 2 diabetes mellitus Type 2 Diabetes Mellitus Prob [place] 06/23/2020 12:00:00 AM EDT [facility] ([facility]) 482686085 Charcot's arthropathy Charcot's Arthropathy Problem 06/23/2020 12:00:00 AM EDT [facility] ([facility]) 218424457 Asthma Asthma Problem 06/23/2020 12:0 0:00 AM EDT - 09/01/2020 12:00:00 AM EDT [facility] ([facility]) 76951588 Migraine Migraine Problem 06/23/2020 12:00:00 AM ED T [facility] ([facility]) 42786051 Depressive disorder Depressive Disorder Problem 0 06/23/2020 12:00:00 AM EDT [facility]ONE[facility] ([facility]) 30733606 Posttraumatic stress disorder Posttraumatic Stress Dis order Problem 06/23/2020 12:00:00 AM EDT [facility]ONE[facility] ([facility]) 74185556 Anxiety Anxiety Problem 06/23/2020 12:00:00 AM ED T [facility]ONE[facility] ([facility]) 33136289 Type 2 diabetes mellitus Type 2 Diabetes Mellitus Prob [place] 06/23/2020 12:00:00 AM EDT [facility] ([facility]) 800675684 Charcot's arthropathy Charcot's Arthropathy Problem 06/23/2020 12:00:00 AM EDT [facility] ([facility]) 642098536 Polycystic ovary syndrome Polycystic Ovary Syndrome Pr oblem 06/23/2020 12:00:00 AM EDT [facility]ONE[facility] ([facility]) 458247277 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 Problem 06/23/2020 12:00:00 AM EDT [facility] ([facility]) 29645010 Sleep apnea Sleep Apnea Problem 06/23/2020 12:00:00 AM EDT [facility]ONE[facility] ([facility]) 194182803 Fibromyalgia Fibromyalgia Problem 06/23/2020 12:00:00 A M EDT [facility]ONE[facility] ([facility]) 43660464 Degeneration of intervertebral disc Dege neration of Intervertebral Disc Problem 06/23/2020 12:00:00 AM EDT [facility]ONE[facility] ([facility]) 535238432 Osteoarthritis Osteoarthritis Problem 06/23/2020 12:00: 00 AM EDT [facility]ONE[facility] ([facility]) 906082741 Gastroparesis syndrome Gastroparesis Syndrome Problem 06/23/2020 12:00:00 AM EDT [facility]ONE[facility] ([facility]) 728904399 Gastroesophageal reflux disease Gastroesophageal Reflux Disease Problem 06/23/2020 12:00:00 AM EDT [facility]ONE[facility] ([facility]) 34961273 Chronic obstructive lung disease Chronic Obstruc tive Lung Disease Problem 06/23/2020 12:00:00 AM EDT [facility]ONE[facility] ([facility]) 937380248 Asthma Asthma Problem 06/23/2020 12:00:00 AM ED T [facility]ONE[facility] ([facility]) 86788885 Migraine Migraine Problem 06/23/2020 12:00:00 AM ED T [facility] ([facility]) 72501570 Depressive disorder Depressive Disorder Problem 0 06/23/2020 12:00:00 AM EDT [facility] ([facility]) 14696888 Posttraumatic stress disorder Posttraumatic Stress Dis order Problem 06/23/2020 12:00:00 AM EDT [facility] ([facility]) 91305633 Anxiety Anxiety Problem 06/23/2020 12:00:00 AM ED T [facility]ONE[facility] ([facility]) 08416835 Type 2 diabetes mellitus Type 2 Diabetes Mellitus Prob [place] 06/23/2020 12:00:00 AM EDT [facility] ([facility]) 037485577 Charcot's arthropathy Charcot's Arthropathy Problem 06/23/2020 12:00:00 AM EDT [facility]ONE[facility] ([facility]) L89.891 Pressure ulcer of toe of right foot stag e 1 Pressure ulcer of toe of right foot stage 1 Problem 05/20/2020 12:00:00 AM EST [facility] ([facility] 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 Problem 05/20/19 12:00:00 AM EST [facility] ([facility] 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 Problem 02/24/2020 12:00:00 AM EST - 05/20/2020 12:00:00 AM EST [facility] ([facility] E66.9 [id number] Obesity (BMI 30-39.9) Problem 01/28/2020 12: 00:00 AM EDT eCW1 ([facility]) Surgeries/Procedures Procedure Description Date Indications Data Source(s) DEBRIDEMENT BONE MUSCLE &/FASCIA 20 SQ CM/< 02/23/2021 12:00:00 AM EST [facility] ([facility] OFFICE OUTPATIENT VISIT 15 MINUTES 02/23/2021 12:00:00 AM EST [facility] ([facility] OFFICE OUTPATIENT VISIT 10 MINUTES 02/04/2021 12:00:00 AM EDT [facility] ([facility] MRI Upper Extremity Any Joint 02/04/2021 12:00:00 AM E DT [facility] ([facility]) MRI Upper Extremity Any Joint 02/04/2021 12:00:00 AM E DT [facility] ([facility]) Extended Individual Psychotherapy - 45 min 02/03/2021 12:00:00 AM EDT - 02/03/2021 12:00:00 AM EDT [facility] ([facility]) Extended Individual Psychotherapy - 45 min 12:00:00 AM EDT [facility] ([facility]) APPLICATION CAST ELBOW FINGER SHORT ARM 01/27/2021 12: 00:00 AM EDT [facility] ([facility]) OFFICE OUTPATIENT VISIT 15 MINUTES 01/27/2021 12:00:00 AM EDT [facility] ([facility] Extended Individual Psychotherapy - 45 min 01/26/2021 12:00:00 AM EDT - 01/26/2021 12:00:00 AM EDT [facility] ([facility]) Extended Individual Psychotherapy - 45 min 12:00:00 AM EDT [facility] ([facility]) TEMPMHCTelemed 30" Psychotherapy 12:00:00 AM EDT - 01/07/2021 12:00:00 AM EDT [facility] ([facility]) TEMPMHCTelemed 30" Psychotherapy 01/06/2021 12:00:00 A M EDT [facility] ([facility]) Extended Individual Psychotherapy - 45 min 12/29/2020 12:00:00 AM EDT - 12/29/2020 12:00:00 AM EDT [facility] ([facility]) Extended Individual Psychotherapy - 45 min 12:00:00 AM EDT [facility] ([facility]) MHC Telemed E/M Lvl 3--Est pt 12/14/2020 12:00:00 AM EDT - 12/14/2020 12:00:00 AM EDT [facility] ([facility]) MHC Telemed E/M Lvl 3--Est pt 12/14/2020 12:00:00 AM E DT [facility] ([facility]) DEBRIDEMENT NAIL ANY METHOD 6/> 11/26/2020 12:00:00 AM EDT [facility] ([facility] Extended Individual Psychotherapy - 45 min 11/25/2020 12:00:00 AM EDT - 11/25/2020 12:00:00 AM EDT [facility] ([facility]) Extended Individual Psychotherapy - 45 min 12:00:00 AM EDT [facility] ([facility]) Brief Individual Psychotherapy - 30 min 11/12/2020 12:00:00 AM EDT - 11/12/2020 12:00:00 AM EDT [facility] ([facility]) PREVENT MED SCIENTIFIC PHOTOGRAPHER&/RISK FACTOR REDJ SPX 15 MIN 11/10/2020 12:00:00 AM EDT - 11/10/2020 12:00:00 AM EDT [facility] ([facility]) PREVENT MED SCIENTIFIC PHOTOGRAPHER&/RISK FACTOR REDJ SPX 15 MIN 11/10 12:00:00 AM EDT [facility] ([facility] [facility]) Brief Individual Psychotherapy - 30 min 11/10/2020 12: 00:00 AM EDT [facility] ([facility]) PREVENT MED SCIENTIFIC PHOTOGRAPHER&/RISK FACTOR REDJ SPX 30 MIN 11/10 12:00:00 AM EDT [facility] ([facility]) Extended Individual Psychotherapy - 45 min 10/28/2020 12:00:00 AM EDT - 10/28/2020 12:00:00 AM EDT [facility] ([facility]) Extended Individual Psychotherapy - 45 min 12:00:00 AM EDT [facility] ([facility]) OFFICE OUTPATIENT VISIT 10 MINUTES 10/19 12:00:00 AM EDT - 10/19/2020 12:00:00 AM EDT [facility] ([facility]) OFFICE OUTPATIENT VISIT 10 MINUTES 10/19/2020 12:00:00 AM EDT [facility] ([facility]) Excise Benign Lesion 1.1-2CM Trunk/Arm/Leg 10/14/2020 12:00:00 AM EDT [facility] ([facility], ) Layer Closure Wound < 2.6CM Scalp/Axillae/Trunk/Extremiti es 10/14/2020 12:00:00 AM EDT [facility] ([facility], ) OFFICE OUTPATIENT VISIT 15 MINUTES 10/07/2020 12:00:00 AM EDT [facility] ([facility] ) Extended Individual Psychotherapy - 45 min 09/29/2020 12:00:00 AM EDT - 09/29/2020 12:00:00 AM EDT [facility] ([facility]) Extended Individual Psychotherapy - 45 min 12:00:00 AM EDT [facility] ([facility]) OFFICE OUTPATIENT NEW 30 MINUTES 09/23/2020 12:00:00 A M EDT [facility] ([facility], ) MHC Telemed E/M Lvl 2--Est pt 09/21/2020 12:00:00 AM EDT - 09/21/2020 12:00:00 AM EDT [facility] ([facility]) MHC Telemed E/M Lvl 2--Est pt 09/21/2020 12:00:00 AM E DT [facility] ([facility]) OFFICE OUTPATIENT VISIT 10 MINUTES 09/17/2020 12:00:00 AM EDT [facility] THERAPEUTIC PX 1/> AREAS EACH 15 MIN EXERCISES 12:00:00 AM EDT [facility] ([facility] ) MANUAL THERAPY TQS 1/> REGIONS EACH 15 MINUTES 021 12:00:00 AM EDT [facility] ([facility]) OFFICE OUTPATIENT VISIT 15 MINUTES 09/14 12:00:00 AM EDT - 09/14/2020 12:00:00 AM EDT [facility] ([facility]) OFFICE OUTPATIENT VISIT 15 MINUTES 09/14/2020 12:00:00 AM EDT [facility] ([facility]) THERAPEUTIC PX 1/> AREAS EACH 15 MIN EXERCISES 12:00:00 AM EDT [facility] ([facility]) MANUAL THERAPY TQS 1/> REGIONS EACH 15 MINUTES 12:00:00 AM EDT [facility] ([facility]) THERAPEUTIC PX 1/> AREAS EACH 15 MIN EXERCISES 12:00:00 AM EDT [facility] ([facility]) MANUAL THERAPY TQS 1/> REGIONS EACH 15 MINUTES 021 12:00:00 AM EDT [facility] ([facility]) Extended Individual Psychotherapy - 45 min 09/01/2020 12:00:00 AM EDT - 09/01/2020 12:00:00 AM EDT [facility] ([facility]) Extended Individual Psychotherapy - 45 min 12:00:00 AM EDT [facility] ([facility]) THERAPEUTIC PX 1/> AREAS EACH 15 MIN EXERCISES 12:00:00 AM EDT [facility] ([facility]) MANUAL THERAPY TQS 1/> REGIONS EACH 15 MINUTES 021 12:00:00 AM EDT [facility] ([facility]) THERAPEUTIC PX 1/> AREAS EACH 15 MIN EXERCISES 021 12:00:00 AM EDT [facility] ([facility]) Physical Therapy Eval - Low Complexity 08/17/2020 12:0 0:00 AM EDT [facility] ([facility]) OFFICE OUTPATIENT VISIT 25 MINUTES 08/11/2020 12:00:00 AM EDT [facility] ([facility]) X-Ray Spine Lumbosacral Complete Inc Bending Views Min Of 6 08/11/2020 12:00:00 AM EDT [facility] ([facility] ) OFFICE OUTPATIENT VISIT 25 MINUTES 08/06/2020 12:00:00 AM EDT [facility] ([facility] ) Tenotomy Toe Subcutaneous Single 08/05/2020 12:00:00 A M EDT [facility] ([facility] DEBRIDEMENT OPEN WOUND 20 SQ CM/< 08/05/2020 12:00:00 AM EDT [facility] ([facility] DEBRIDEMENT OPEN WOUND 20 SQ CM/< 07/22/2020 12:00:00 AM EDT [facility] ([facility] Extended Individual Psychotherapy - 45 min 07/22/2020 12:00:00 AM EDT - 07/22/2020 12:00:00 AM EDT [facility] ([facility]) Extended Individual Psychotherapy - 45 min 12:00:00 AM EDT [facility] ([facility]) MHC Telemed E/M Lvl 2--Est pt 07/20/2020 12:00:00 AM EDT - 07/20/2020 12:00:00 AM EDT [facility] ([facility]) MHC Telemed E/M Lvl 2--Est pt 07/20/2020 12:00:00 AM E DT [facility] ([facility]) DEBRIDEMENT OPEN WOUND 20 SQ CM/< 07/08/2020 12:00:00 AM EDT [facility] ([facility] OFFICE OUTPATIENT VISIT 10 MINUTES 07/07/2020 12:00:00 AM EDT [facility] ([facility]) Extended Individual Psychotherapy - 45 min 07/01/2020 12:00:00 AM EDT - 07/01/2020 12:00:00 AM EDT [facility] ([facility]) Extended Individual Psychotherapy - 45 min 12:00:00 AM EDT [facility] ([facility]) DEBRIDEMENT OPEN WOUND 20 SQ CM/< 06/24/2020 12:00:00 AM EDT [facility] ([facility] Telemed E/M Lvl 3--New pt 06/22/2020 12: 00:00 AM EDT - 06/22/2020 12:00:00 AM EDT [facility] ([facility]) Telemed E/M Lvl 3--New pt 06/22/2020 12:00:00 AM EDT [facility] ([facility]) I & D Abscess Simple 06/14/2020 12:00:00 AM EST [facility] ([facility], ) DEBRIDEMENT SUBCUTANEOUS TISSUE 20 SQ CM/< 06/10/2020 12:00:00 AM EST [facility] ([facility] Extended Individual Psychotherapy - 45 min 06/04/2020 12:00:00 AM EST - 06/04/2020 12:00:00 AM EST [facility] ([facility]) Extended Individual Psychotherapy - 45 min 12:00:00 AM EST [facility] ([facility]) MHC Telemed E/M Lvl 3--Est pt 05/25/2020 12:00:00 AM EST - 05/25/2020 12:00:00 AM EST [facility] ([facility]) MHC Telemed E/M Lvl 3--Est pt 05/25/2020 12:00:[address] [facility] ([facility]) Extended Individual Psychotherapy - 45 min 05/21/2020 12:00:00 AM EST - 05/21/2020 12:00:00 AM EST [facility] ([facility]) Extended Individual Psychotherapy - 45 min 12:00:00 AM EST [facility] ([facility]) TEMPMHCTelemed 30" Psychotherapy 021 12:00:00 AM EST - 05/14/2020 12:00:00 AM EST [facility] ([facility]) TEMPMHCTelemed 30" Psychotherapy 05/12/2020 12:00:00 A M EST [facility] ([facility]) DEBRIDEMENT OPEN WOUND 20 SQ CM/< 05/11/2020 12:00:00 AM EST [facility] ([facility] [id number]"Psychotherapy 12:00:00 AM EST - 05/07/2020 12:00:00 AM EST [facility] ([facility]) [id number]"Psychotherapy 05/05/2020 12:00:00 AM EST [facility] ([facility]) Brief Individual Psychotherapy - 30 min 04/28/2020 12:00:00 AM EST - 04/28/2020 12:00:00 AM EST [facility] ([facility]) DEBRIDEMENT OPEN WOUND 20 SQ CM/< 04/27/2020 12:00:00 AM EST [facility] ([facility] Brief Individual Psychotherapy - 30 min 04/27/2020 12: 00:00 AM EST [facility] ([facility]) MHC Telemed E/M Lvl 3--Est pt 04/27/2020 12:00:00 AM EST - 04/27/2020 12:00:00 AM EST [facility] ([facility]) MHC Telemed E/M Lvl 3--Est pt 04/27/2020 12:00:[address] [facility] ([facility]) [id number]"Psychotherapy 12:00:00 AM EST - 04/14/2020 12:00:00 AM EST [facility] ([facility]) [id number]"Psychotherapy 04/13/2020 12:00:00 AM EST [facility] ([facility]) DEBRIDEMENT OPEN WOUND 20 SQ CM/< 04/12/2020 12:00:00 AM EST [facility] ([facility] Extended Individual Psychotherapy - 45 min 03/30/2020 12:00:00 AM EST - 03/30/2020 12:00:00 AM EST [facility] ([facility]) Extended Individual Psychotherapy - 45 min 0 12:00:00 AM EST [facility] ([facility]) TEMPMHCTelemed 30" Psychotherapy 020 12:00:00 AM EST - 03/16/2020 12:00:00 AM EST [facility] ([facility]) TEMPMHCTelemed 30" Psychotherapy 03/16/2020 12:00:00 A M EST [facility] ([facility]) MHC Telemed E/M Lvl 3--Est pt 03/02/2020 12:00:00 AM EST - 03/02/2020 12:00:00 AM EST [facility] ([facility]) MHC Telemed E/M Lvl 3--Est pt 03/02/2020 12:00:[address] [facility] ([facility]) RADEX FOOT COMPLETE MINIMUM 3 VIEWS 02/24/2020 12:00:0 0 AM EST [facility] ([facility] Extended Individual Psychotherapy - 45 min 02/17/2020 12:00:00 AM EST - 02/17/2020 12:00:00 AM EST [facility] ([facility]) Extended Individual Psychotherapy - 45 min 0 12:00:00 AM EST [facility] ([facility]) Extended Individual Psychotherapy - 45 min 02/03/2020 12:00:00 AM EDT - 02/03/2020 12:00:00 AM EDT [facility] ([facility]) Extended Individual Psychotherapy - 45 min 0 12:00:00 AM EDT [facility] ([facility]) RADEX ANKLE COMPLETE MINIMUM 3 VIEWS 01/20/2020 12:00: 00 AM EDT [facility] ([facility] RADEX FOOT COMPLETE MINIMUM 3 VIEWS 01/20/2020 12:00:0 0 AM EDT [facility] ([facility] DEBRIDEMENT OPEN WOUND 20 SQ CM/< 01/20/2020 12:00:00 AM EDT [facility] ([facility] Extended Individual Psychotherapy - 45 min 01/20/2020 12:00:00 AM EDT - 01/20/2020 12:00:00 AM EDT [facility] ([facility]) Extended Individual Psychotherapy - 45 min 0 12:00:00 AM EDT [facility] ([facility]) DEBRIDEMENT SUBCUTANEOUS TISSUE 20 SQ CM/< 01/16/2020 12:00:00 AM EDT [facility] ([facility] MHC Telemed E/M Lvl 3--Est pt 01/13/2020 12:00:00 AM EDT - 01/13/2020 12:00:00 AM EDT [facility] ([facility]) MHC Telemed E/M Lvl 3--Est pt 01/13/2020 12:00:00 AM E DT [facility] ([facility]) Extended Individual Psychotherapy - 45 min 01/06/2020 12:00:00 AM EDT - 01/06/2020 12:00:00 AM EDT [facility] ([facility]) Extended Individual Psychotherapy - 45 min 0 12:00:00 AM EDT [facility] ([facility]) DEBRIDEMENT OPEN WOUND 20 SQ CM/< 01/02/2020 12:00:00 AM EDT [facility] ([facility] Results ID Date Data Source [id number] 02/23/2021 01:30:00 PM EST [facility] ([facility] Name Value Range Interpretation Code Description Data Marian rce(s) Supporting Document(s) Gram Stain Laboratory test result [facility] ([facility] FEW RBCS FEW WBCS MANY GRAM POSITIVE COCCI IN PAIRS FEW GRAM NEGATIVE RODS ID Date Data Source [id number] 02/14/2021 10:53:06 AM EST [facility] Name Value Range Interpretation Code Description Data Marian rce(s) Supporting Document(s) Progress Note [facility] WGOTQy8kLfWMQfXq72/SYPztQRXbz6XyQLwdYFp9MKynUYNpU9BqRUG5lS4zDFQ6VLgMTbSgGpPrUAW3 lbm [file] KtZmZVY9J0X5Fef6BvWkAhf+OH3aENv+Aa8En0RrciA4kmMhWCtrVBzjVx0VIASTM8EWEi== ID Date Data Source [id number] 02/14/2021 09:49:19 AM EST [facility] Name Value Range Interpretation Code Description Data Marian rce(s) Supporting Document(s) Progress Note [facility] TCCLQt3jJnBAGsWu95/WELacWXBci3UeYFmnRKd0SDbqDCHxY5AtSGY4dW5bVXJ5JJmMTkCxLzQsTWE8 lbm [file] ZdCFyvRIWrAN1YOVLMS5JPYh== ID Date Data Source [id number] 01/07/2021 08:46:51 AM EDT [facility] Name Value Range Interpretation Code Description Data Marian rce(s) Supporting Document(s) Progress Note [facility] SIQWHm3vMwDEYxZq69/QVDrsBFZel8PeVIkrIAk2DPocSGUtD6JqAIU1gF9bNEI7ZKoJLkGqWuEyMYBj lbm [file] dGE+DQogICAgICAgICAgICAgICAgICAgICAgICAgIC AgICAgICAgICAgICAgICAgICAgICAgICAgICAgICAgICAgICAgICAgICAgICAgICAgICAgICAgICAgIC AgICAgICAgICAgICAgDQogICAgICAgICAgICAgICAgICAgICAgICAgICAgICAgICAgICAgICAgICAgIC AgICAgICAgICAgICAgICAgICAgICAgICAgICAgICAg ICAgICAgICAgICAgICAgICAgICAgICAgDQogICAgICAgICAgICAgICAgICAgICAgICAgICAgICAgICAg ICAgICAgICAgICAgICAgICAgICAgICAgICAgICAgICAgICAgICAgICAgICAgICAgICAgICAgICAgICAg ICAgICAgDQogICAgICAgICAgICAgICAgICAgICAgIC AgICAgICAgICAgICAgICAgICAgICAgICAgICAgICAgICAgICAgICAgICAgICAgICAgICAgICAgICAgIC AgICAgICAgICAgICAgICAgDQogICAgICAgICAgICAgICAgICAgICAgICAgICAgICAgICAgICAgICAgIC AgICAgICAgICAgICAgICAgICAgICAgICAgICAgICAg ICAgICAgICAgICAgICAgICAgICAgICAgICAgDQogICAgICAgICAgICAgICAgICAgICAgICAgICAgICAg ICAgICAgICAgICAgICAgICAgICAgICAgICAgICAgICAgICAgICAgICAgICAgICAgICAgICAgICAgICAg ICAgICAgICAgDQogICAgICAgICAgICAgICAgICAgIC AgICAgICAgICAgICAgICAgICAgICAgICAgICAgICAgICAgICAgICAgICAgICAgICAgICAgICAgICAgIC AgICAgICAgICAgICAgICAgICAgDQogICAgICAgICAgICAgICAgICAgICAgICAgICAgICAgICAgICAgIC AgICAgICAgICAgICAgICAgICAgICAgICAgICAgICAg ICAgICAgICAgICAgICAgICAgICAgICAgICAgICAgDQogICAgICAgICAgICAgICAgICAgICAgICAgICAg ICAgICAgICAgICAgICAgICAgICAgICAgICAgICAgICAgICAgICAgICAgICAgICAgICAgICAgICAgICAg ICAgICAgICAgICAgDQogICAgICAgICAgICAgICAgIC AgICAgICAgICAgICAgICAgICAgICAgICAgICAgICAgICAgICAgICAgICAgICAgICAgICAgICAgICAgIC BmQTPaRGUfTOFnIELeFUTpJAUmAVBjDRu5I3rxZWHxERHfUU2nDXc6Nc4+QBxITwVfGKG6jxAxnM5BXR 8ly6SjOTwyAFVbn5GmCDm8WA3WFTNoCKehMW2IEYsh wu6POIVpCSVinGKDs7gdXwKdTTS7NGGfGekpGW2UIZJiR4calzMxLZLyZIDFJNkmDFBHMT4LJeQmE4Yg tD32HPERIu1+RLkuimPbPjlGYyHuAGKbv8XoVNp3NJ3ISLFpTjbwt4UcJkInOWUBCJkwUS3VHUN8VCFd CQGxQh3KPLQqR667zjWwKF6REn4ARuEaWD8gdc2UDk IqAQLeMrrNUhp3NTkvAE3EgDZpYCdKjr1igxXdwsMTy0YmvuQpwVCNKFXbqI1fZFEMcfBjMR4zIZQIAZ OwkYTiZE5zEpBqElRaWNr4IYOzLG8rSFsiHH2UDZG1DEtlGTMaCQNkL8dFEoOtEKVeCTKayWsjHV1BVp WbP6MctjUvtULaDzTcHOPCZp5+DQplbmRvYmoNCjM0 YSDqh1UxDQd8EK0TAYFdUThyGL2LWUXwsW6rMTsuJU3ZXaGqQDNpVCZABqGsC00zhGVzSTo6W8QrBdAn ZGVkRmlsZXMgPDwvTmFtZXMgWyBdDQogID4+ID4+ZNlgXT2ONOojdiNpZJLeVb2VWIBhGFRaOT8rDALf PVXdI7N8uHxqGNSIQnEhG8zcfbevQO9fBSJwQ988tD sxcqPkXCNuWWGwNv0FHPKgFNS6LBIwoNOsKtQkIQOMONrmOU8RsPOlSZW8fF6jJRdxDZAhNNBhQ7wUQm JigBhoEE53uGgrguZxzDMaNGk+Re8TQN8hm5KiUJh2tdQzGErmFJC3MIpwPEHqPQDnOGAtVJV7VHV9AP PMXbHtUHNrSMWfKHocNSWlDCTfux5BNNJaTPYrAngy OlWcXSVgAIVbUOapERGdVRS7IhS9JPRcUSRxVV8DPbVsYXTeDDPxZGnoFMBiQWMvwn3JRAGuPPUiJmW8 HTYdTDQzKVFlUGzkIOSbSYWbVUdkBUKkHEHhMI2ZYqUcYODmGUZ9LmMyIQNlZIPuev7TVZBlQHRuHHWq JRSxZRRpPMLmDEctFRKbQJW0WSw3DOBgARWrOO1SNq KvYFBvVBUwILAuCBNkZJMazp0POGGbXWSjKkR8RUVoTYHkQLShTPlqHTTiGFL8CRDuVKXsHLWsRO3GWx ErJTTdYHt9JzYvDIUgUTBzar2WSQZvDSAcIaubPSAzWYPxZDNdXMdvOVYrUHT8IwDyOPShODEtCS1SBy PzTCMvQGm5TmZhUZMfLHDzub4TXYKaZMBjAEy0FPTq HQEhXDTcOCvtOAMdTLFjZRO1RSXmINZvCS8NElPzZMOmEgBjOQIgJSCzKQFdoz6SOPPnGXNvNOFsIZQw FNArBELvAGxdTNPiQYZmSxUyTXDuRJDnPS1HKvMgRWWhWgZ1UNPyMSQjZVYhrl6TPJPcZHZbTlI9GqKl HNIsBIZyJGzpAIEbSZL1HkH5GLOgTDUtNH4KDwSvED QuYwM3NSHzRCKtXDUzie9OOUHfGDWkTsHmLJZoRIIdHAPcHEfcTRNgUJC6ZxlcLUBeGMKrJJ8ARrXzVI AwAfv4TENpFQCwNDAnux4YIFRnRCWeRjxyHxEtGIUcJXYsSAjgRAReIMK4CNaeVHIpNOXcUQ8YHzCdOT SbTthwOaytMLWuVVPlyb7BGSRrKHSgFXd8DaQcSZRz IAJpYDlySKEnBEH5BQP7FIHhVTFbWK1IKnYhSWVwNww7NLXlOGViSDLlnn6RyBCwzAyyei0LFOsGUf3T eXpzAJV3HIrgNk9foJZpRDCaXRBESe8MfiAiRPDgLKVUJGqyKKTjFWUhRdEfYaIuXXVnKUjtAZFeFJXw MEB4JdSeZFW6ImUbMuI0BTWyY4OmAEVqLXK7LGNsZv O3JvKiYgfmOOY2NgP8MMS+HO6nRTk+Bs8Bj9QdrkB3vuJbCQzzCPVrNE0DJQIFY5TZGa== ID Date Data Source [id number] 12/13/2020 04:41:28 PM EDT [facility] XR SPINE LUMBAR MIN 4 VIEWS DOES NOT INC LUDE BENDING [id number] RESULTInterpreted by:ARTHUR Trotter SPINECLINICAL STATEMENT: Low back [...] rce(s) Supporting Document(s) ID Date Data Source [id number] 12/06/2020 11:55:14 AM T [facility] Name Value Range Interpretation Code Description Data Marian rce(s) Supporting Document(s) Progress Note [facility] WLLEFh6eHyBHMeNk26/PSWkbGRXit5TyEShiFXx5BRyrEKWuL5FjAFY2yD3sKUF0ZVdTOiOkXuAyKDAh lbm [file] Cardiology Physician+gp6vomRqPkU8q9kcC+Upu+noVCGwiq57JwOwPI [file] naHEjnRVDZNl7F ID Date Data Source [id number] 11/24/2020 10:06:00 AM EDT [facility] ([facility]) Name Value Range Interpretation Code Description Data Marian rce(s) Supporting Document(s) Hemoglobin A1c/Hemoglobin.total in Blood 12.8 %_of_total_HGB <5. 7 Above high normal Hemoglobin a1C [facility] ([facility]) ID Date Data Source [id number] 11/24/2020 10:06:00 AM EDT [facility] ([facility]) Name Value Range Interpretation Code Description Data Marian rce(s) Supporting Document(s) Thyrotropin [Units/volume] in Serum or Plasma 1.33 mIU/L Tsh [facility] ([facility]) ID Date Data Source [id number] 11/24/2020 10:06:00 AM EDT [facility]) Name Value Range Interpretation Code Description Data Marian rce(s) Supporting Document(s) Hepatitis A virus Ab [Presence] in Serum by Immunoassay non- reactive non-reactive Hepatitis a Ab, Total [facility] ([facility]) ID Date Data Source [id number] 11/24/2020 10:06:00 AM EDT [facility]) Name Value Range Interpretation Code Description Data Marian rce(s) Supporting Document(s) Hepatitis B virus surface Ab [Presence] in Serum by Immunoas say non-reactive non-reactive Hepatitis B Surface Antibody [facility]l [facility] ID Date Data Source [id number] 11/24/2020 10:06:00 AM EDT [facility]) Name Value Range Interpretation Code Description Data Marian rce(s) Supporting Document(s) Hepatitis B virus surface Ag [Presence] in Serum or Pl asma by Immunoassay non-reactive non-reactive Hepatitis B Surface Antigen ATHE NA [facility]) ID Date Data Source [id number] 11/24/2020 10:06:00 AM EDT [facility]) Name Value Range Interpretation Code Description Data Marian rce(s) Supporting Document(s) Hepatitis C virus Ab [Presence] in Serum or Plasma by Immuno assay nonreactive nonreactive Hepatitis C Antibody [facility] ([facility]) Hepatitis C virus Ab Signal/Cutoff in Serum or Plasma by Imm unoassay 0.01 ratio <1.00 Index [facility] ([facility]) HIV 1+2 Ab+HIV1 p24 Ag [Presence] in Serum or Plasma b y Immunoassay non-reactive non-reactive HIV Ag/Ab, 4TH Gen [place] ([facility]) ID Date Data Source [id number] 11/03/2020 12:00:00 AM EDT [place] ([facility]) Name Value Range Interpretation Code Description Data Marian rce(s) Supporting Document(s) Nuclear Ab [Presence] in Serum negative negative anach oice(R) Screen [facility]) ID Date Data Source [id number] 11/03/2020 12:00:00 AM EDT [facility]) Name Value Range Interpretation Code Description Data Marian rce(s) Supporting Document(s) Mitochondria Ab [Presence] in Serum by Immunofluorescence negative negative Mitochondrial Ab Screen [place] ([facility]) ID Date Data Source [id number] 11/03/2020 12:00:00 AM EDT [facility]) Name Value Range Interpretation Code Description Data Marian rce(s) Supporting Document(s) Protein [Mass/volume] in Serum or Plasma 6.6 g/dL 6.1-8.1 Protein, Total [place] ([facility]) Albumin [Mass/volume] in Serum or Plasma 4.0 g/dL 3.6-5.1 Albumin [place] ([facility]) Globulin [Mass/volume] in Serum by calculation 2.6 g/dL_(calc) 1.9- 3.7 Globulin [place] ([facility]) Albumin/Globulin [Mass Ratio] in Serum or Plasma 1.5 (calc) 1.0-2 .5 Albumin/globulin Ratio [facility]) Bilirubin.total [Mass/volume] in Serum or Plasma 0.5 mg/dL 0.2-1 .2 Bilirubin, Total [facility]) Bilirubin.direct [Mass/volume] in Serum or Plasma 0.1 mg/dL < or = 0.2 Bilirubin, Direct [facility] ([facility]) Bilirubin.indirect [Mass/volume] in Serum or Plasma 0.4 mg/dL_(calc ) 0.2-1.2 Bilirubin, Indirect [facility] ([facility]) Alkaline phosphatase [Enzymatic activity/volume] in Serum or Plasma 66 U/L 31-125 Alkaline Phosphatase [facility] ([facility]) Aspartate aminotransferase [Enzymatic activity/volume] in Serum or Plasma 24 U/L 10-30 Ast [facility] ([facility]) Alanine aminotransferase [Enzymatic activity/volume] in Seru m or Plasma 34 U/L 6-29 Above high normal Alt [place] ([facility]) ID Date Data Source [id number] 11/03/2020 12:00:00 AM EDT [facility]) Name Value Range Interpretation Code Description Data Marian rce(s) Supporting Document(s) Gamma glutamyl transferase [Enzymatic activity/volume] in Serum or Plasma 41 U/L 3-55 Ggt [facility]) ID Date Data Source [id number] 11/03/2020 12:00:00 AM EDT [facility]) Name Value Range Interpretation Code Description Data Marian rce(s) Supporting Document(s) Nuclear Ab [Presence] in Serum negative negative anach oice(R) Screen [facility]) ID Date Data Source [id number] 11/03/2020 12:00:00 AM EDT [facility]) Name Value Range Interpretation Code Description Data Marian rce(s) Supporting Document(s) Mitochondria Ab [Presence] in Serum by Immunofluorescence negative negative Mitochondrial Ab Screen [facility]) ID Date Data Source [id number] 11/03/2020 12:00:00 AM EDT [facility]) Name Value Range Interpretation Code Description Data Marian rce(s) Supporting Document(s) Protein [Mass/volume] in Serum or Plasma 6.6 g/dL 6.1-8.1 Protein, Total [facility] ([facility]) Albumin [Mass/volume] in Serum or Plasma 4.0 g/dL 3.6-5.1 Albumin [facility] ([facility]) Globulin [Mass/volume] in Serum by calculation 2.6 g/dL_(calc) 1.9- 3.7 Globulin [place] ([facility]) Albumin/Globulin [Mass Ratio] in Serum or Plasma 1.5 (calc) 1.0-2 .5 Albumin/globulin Ratio [place] ([facility]) Bilirubin.total [Mass/volume] in Serum or Plasma 0.5 mg/dL 0.2-1 .2 Bilirubin, Total [facility] ([facility]) Bilirubin.direct [Mass/volume] in Serum or Plasma 0.1 mg/dL < or = 0.2 Bilirubin, Direct [place] ([facility]) Bilirubin.indirect [Mass/volume] in Serum or Plasma 0.4 mg/dL_(calc ) 0.2-1.2 Bilirubin, Indirect [place] ([facility]) Alkaline phosphatase [Enzymatic activity/volume] in Serum or Plasma 66 U/L 31-125 Alkaline Phosphatase [facility] ([facility]) Aspartate aminotransferase [Enzymatic activity/volume] in Serum or Plasma 24 U/L 10-30 Ast [facility] ([facility]) Alanine aminotransferase [Enzymatic activity/volume] in Seru m or Plasma 34 U/L 6-29 Above high normal Alt [facility] ([facility]) ID Date Data Source [id number] 11/03/2020 12:00:00 AM EDT [place] ([facility]) Name Value Range Interpretation Code Description Data Marian rce(s) Supporting Document(s) Gamma glutamyl transferase [Enzymatic activity/volume] in Serum or Plasma 41 U[facility]L 3-55 [facility] Date Data Source [id number] 11/03/2020 12:00:00 AM EDT [facility] ([facility]) Name Value Range Interpretation Code Description Data Marian rce(s) Supporting Document(s) Mitochondria Ab [Presence] in Serum by Immunofluorescence negative negative Mitochondrial Ab Screen [place] ([facility]) ID Date Data Source [id number] 11/03/2020 12:00:00 AM EDT [facility] ([facility]) Name Value Range Interpretation Code Description Data Marian rce(s) Supporting Document(s) Protein [Mass/volume] in Serum or Plasma 6.6 g/dL 6.1-8.1 Protein, Total [facility] ([facility]) Albumin [Mass/volume] in Serum or Plasma 4.0 g/dL 3.6-5.1 Albumin [place] ([facility]) Globulin [Mass/volume] in Serum by calculation 2.6 g/dL_(calc) 1.9- 3.7 Globulin [place] ([facility]) Bilirubin.total [Mass/volume] in Serum or Plasma 0.5 mg/dL 0.2-1 .2 Bilirubin, Total [place] ([facility]) Albumin/Globulin [Mass Ratio] in Serum or Plasma 1.5 (calc) 1.0-2 .5 Albumin/globulin Ratio [place] ([facility]) Bilirubin.direct [Mass/volume] in Serum or Plasma 0.1 mg/dL < or = 0.2 Bilirubin, Direct [facility] ([facility]) Bilirubin.indirect [Mass/volume] in Serum or Plasma 0.4 mg/dL_(calc ) 0.2-1.2 Bilirubin, Indirect [facility] ([facility]) Alkaline phosphatase [Enzymatic activity/volume] in Serum or Plasma 66 U/L 31-125 Alkaline Phosphatase [facility] ([facility] [facility]) Aspartate aminotransferase [Enzymatic activity/volume] in Serum or Plasma 24 U/L 10-30 Ast [facility] ([facility]) Alanine aminotransferase [Enzymatic activity/volume] in Seru m or Plasma 34 U/L 6-29 Above high normal Alt [facility]ONEY ([facility]) ID Date Data Source [id number] 11/03/2020 12:00:00 AM EDT [place] ([facility]) Name Value Range Interpretation Code Description Data Marian rce(s) Supporting Document(s) Gamma glutamyl transferase [Enzymatic activity/volume] in Serum or Plasma 41 U/L 3-55 Ggt [facility] ([facility]) ID Date Data Source [id number] 11/03/2020 12:00:00 [facility] Name Value Range Interpretation Code Description Data Marian rce(s) Supporting Document(s) Nuclear Ab [Presence] in Serum negative negative anach oice(R) Screen [place] ([facility]) ID Date Data Source [id number] 11/03/2020 12:00:00 AM EDT [facility]) Name Value Range Interpretation Code Description Data Marian rce(s) Supporting Document(s) Mitochondria Ab [Presence] in Serum by Immunofluorescence negative negative Mitochondrial Ab Screen [facility]ONE[facility] ([facility]) ID Date Data Source [id number] 11/03/2020 12:00:00 AM EDT [facility]) Name Value Range Interpretation Code Description Data Marian rce(s) Supporting Document(s) Protein [Mass/volume] in Serum or Plasma 6.6 g/dL 6.1-8.1 Protein, Total [facility]ONE[facility] ([facility]) Albumin [Mass/volume] in Serum or Plasma 4.0 g/dL 3.6-5.1 Albumin [facility] ([facility]) Globulin [Mass/volume] in Serum by calculation 2.6 g/dL_(calc) 1.9- 3.7 Globulin [facility] ([facility]) Albumin/Globulin [Mass Ratio] in Serum or Plasma 1.5 (calc) 1.0-2 .5 Albumin/globulin Ratio [facility] ([facility]) Bilirubin.direct [Mass/volume] in Serum or Plasma 0.1 mg/dL < or = 0.2 Bilirubin, Direct [facility] ([facility]) Bilirubin.total [Mass/volume] in Serum or Plasma 0.5 mg/dL 0.2-1 .2 Bilirubin, Total [place] ([facility]) Bilirubin.indirect [Mass/volume] in Serum or Plasma 0.4 mg/dL_(calc ) 0.2-1.2 Bilirubin, Indirect [facility] ([facility]) Alkaline phosphatase [Enzymatic activity/volume] in Serum or Plasma 66 U/L 31-125 Alkaline Phosphatase [facility] ([facility]) Aspartate aminotransferase [Enzymatic activity/volume] in Serum or Plasma 24 U/L 10-30 Ast [place] ([facility]) Alanine aminotransferase [Enzymatic activity/volume] in Seru m or Plasma 34 U/L 6-29 Above high normal Alt [facility] ([facility]) ID Date Data Source [id number] 11/03/2020 12:00:00 AM EDT [facility]) Name Value Range Interpretation Code Description Data Marian rce(s) Supporting Document(s) Gamma glutamyl transferase [Enzymatic activity/volume] in Serum or Plasma 41 U/L 3-55 Ggt [facility]) ID Date Data Source [id number] 11/03/2020 12:00:00 AM EDT [facility]) Name Value Range Interpretation Code Description Data Marian rce(s) Supporting Document(s) Nuclear Ab [Presence] in Serum negative negative anach oice(R) Screen [facility]) ID Date Data Source [id number] 10/29/2020 01:56:10 PM EDT [facility] Name Value Range Interpretation Code Description Data Marian rce(s) Supporting Document(s) Progress Note [facility] LDEARy8iPrTBTgHp42/XWQejHVAfm5WgMQmiKTm4KDkvDEPmX3HvTVC9qH0eSNB4DNaUTjMxJjKtMpMa [facility] [file] AgICAgICAgICAgICAgICAgICAgICAgICAgICAgICAgICAgICAgICAgICAgICAgICAgICAgICAgICAgIC AgICAgICAgICAgICAgICAgICAgICAgICAgDQogICAg ICAgICAgICAgICAgICAgICAgICAgICAgICAgICAgICAgICAgICAgICAgICAgICAgICAgICAgICAgICAg ICAgICAgICAgICAgICAgICAgICAgICAgICAgICAgICAgICAgDQogICAgICAgICAgICAgICAgICAgICAg ICAgICAgICAgICAgICAgICAgICAgICAgICAgICAgIC AgICAgICAgICAgICAgICAgICAgICAgICAgICAgICAgICAgICAgICAgICAgICAgDQogICAgICAgICAgIC AgICAgICAgICAgICAgICAgICAgICAgICAgICAgICAgICAgICAgICAgICAgICAgICAgICAgICAgICAgIC AgICAgICAgICAgICAgICAgICAgICAgICAgICAgDQog ICAgICAgICAgICAgICAgICAgICAgICAgICAgICAgICAgICAgICAgICAgICAgICAgICAgICAgICAgICAg ICAgICAgICAgICAgICAgICAgICAgICAgICAgICAgICAgICAgICAgDQogICAgICAgICAgICAgICAgICAg ICAgICAgICAgICAgICAgICAgICAgICAgICAgICAgIC AgICAgICAgICAgICAgICAgICAgICAgICAgICAgICAgICAgICAgICAgICAgICAgICAgDQogICAgICAgIC AgICAgICAgICAgICAgICAgICAgICAgICAgICAgICAgICAgICAgICAgICAgICAgICAgICAgICAgICAgIC AgICAgICAgICAgICAgICAgICAgICAgICAgICAgICAg DQogICAgICAgICAgICAgICAgICAgICAgICAgICAgICAgICAgICAgICAgICAgICAgICAgICAgICAgICAg ICAgICAgICAgICAgICAgICAgICAgICAgICAgICAgICAgICAgICAgICAgDQogICAgICAgICAgICAgICAg ICAgICAgICAgICAgICAgICAgICAgICAgICAgICAgIC AgICAgICAgICAgICAgICAgICAgICAgICAgICAgICAgICAgICAgICAgICAgICAgICAgICAgDQogICAgIC AgICAgICAgICAgICAgICAgICAgICAgICAgICAgICAgICAgICAgICAgICAgICAgICAgICAgICAgICAgIC AgICAgICAgICAgICAgICAgICAgICAgICAgICAgICAg UHZwVWr9F8baVQCsKDZqWL1lJPb2Fh7+BGxYGaKsURJ3vgEjtY3ZTK0fo7EmIDjqCGTpd6JeCBg2LU9J UQKuZJdfCA4BBLclqw1TFFHeTPDkrNHLh6szTiPgHQR7EKQvGswkFF0VWIThS3kgtwEuUCJsWJLTHVlw OBQBUTjlBBBOTHOfUYVjRvXuFzJdETEeZW1BECKnW4 97abTkGD7HAm9ADiLlMC9ecz4JAwhhIEYdQhfPMgc9SByoWN1EeMHztPGqZHXuMQDJMyMzE8jfc6GtOd zhXANPSLjnJK4Dr8HxlMEfVAy+Hr4AKM2bj8MpUEasAYAlZF3vcv8UQHqRBqPkY3DirJldWWNof8jxQA ZnYM3ylFXhVLH4MQpyaLCiees4FTWgX0FgAUQsqmnj GM9IQKZ4AQqbXk4jZWLbENCuRtCyYSTZLW0DROZuTVFshRCrIWSyQSSZQM4EGAlyCGE4JACopwYxnXPr UVcgQL4CZBPrxdMxCvvdLWGLXIz+Sl9TKQ2au7PkOFglXFAlPZ6wcj1WQBfKVsAbP8X8mSWpU3M8WDvh Ni3EUMSjZVVmNlTuNFYOWYwsWJ8SPK2akiO7JH0HtS OiQQDtNUMhaTHgDLg0G12ptWQsFEmsPK1RQKJ+Selvin+Hi2ZOOHzRMNwLXKpZaMgPEIJKfSfB4WiU6RXl0 UoT3HxOD92pCdrchCxGAvdHJ6FLB8oQTEfJBUVQO2XlGMwyG3mkeSlKeZxBGYGKeVtX73hbHXeBLEuAG P6IDHxKl2ACKEsW5BkoiErqYfqcqApUHCmCNLZSF0K PIeizyHxzYOmqKviXZ60vFfaLL2JRq2XJvCzNR2rdq1PcNOyEl1LUUSoQQ4IXSXjRNKoCTLmPQD7KUHq XiEwWUanEDKbYWAhHBG8JWVwFPOxVG8HHnHjPWByLdV3GnVmFGXqFJJoxw6TTPIzBJEpPrU8ZEVeCQYq SHTnQFfhPSBfLJGqBJP6NWJbTTKvJV6CBdNoFRGnSR J2AbhaBIXoMHYsvj4SQRUsRJKcKIlfKjBcWPIaZPWaZYzmNAPgQOX8NKK9PZNeWATcAI0TCxViBMPuPR dtOuJhKNNuHMUedj5JREPbBAZjKAkmWnLqFDQcMENvFGxaIYIhTCPjNBP5JAWcJZDpVX1KTrBsMDUhGY A0PjGtYOUaTVOcdj4UHGYiBSDpDSnpMZIyMUOkYQIj WDltAZOlAUM3Rcj6YGIcXDDeRT5VEkOuYBYoOXT1SNJsKXGhXFAbsg8WBXPiUYCvMsf5SOYtBFZhFSJh RBjzYPGaKCI9LBK5XSOkRRMrFZ5HRbWmHFWzGXvcOrZqXJMqNVWqdi1LYDWjUYCmRJC1WAZrMFYyCPGo FYmcSYNbPJS5DwigQTJoFNAzST0DUqRwOGJbMQa5Mm cpSXYeYEOreg3KQJVgVIXlSRJsNYEgFFClLJUmBZilMIRwWYXsGgX3AGIsZEFfZM4CHiSeUFUlBmG8AM FbJZReYQZxnh6ADDQtXFYmXJh7ElPdZVPwZYGjNQlsXRUgTBPbOVO2EHPtZHEkUR4LTsGpODNbMjYsQT OhZZDnHWIdcd2IGPHoOJWzXdfwZVJsEYYuMKWnBRfu PBNvMHEaOMy2YLJhAZKjRJ3MCrVeIOUjGiQbPferNQQwQFQvck0JdWLjrRphfe8DOZxCJl3GvLuwAWZb LIrbWj1tmPObEGGnZBAIJx2MqpJiMWJdCGXWYGfhMWGmLME6KQj2MoL5LeKgK6N4RwV6LPO2QJqwGEI6 YYLyXGN1CuZ0XKchJqatNHchQzT1QhvuLSrtDAggAO VlMDlhMDJhMTY+AQ1pFQw+Am1Pt3YcqsQ4csOkIWhvOAA4Ew6AAVTUL1RXNm== ID Date Data Source [id number] 10/20/2020 09:58:00 AM EDT [place] ([facility]) Name Value Range Interpretation Code Description Data Marian rce(s) Supporting Document(s) Hemoglobin A1c/Hemoglobin.total in Blood tnp Hemoglobin a1C [place] ([facility]) ID Date Data Source [id number] 10/20/2020 09:58:00 AM EDT [facility]) Name Value Range Interpretation Code Description Data Marian rce(s) Supporting Document(s) Thyrotropin [Units/volume] in Serum or Plasma 1.11 mIU/L [facility] ID Date Data Source [id number] 10/20/2020 09:58:00 AM EDT [facility]) Name Value Range Interpretation Code Description Data Marian rce(s) Supporting Document(s) Ferritin [Mass/volume] in Serum or Plasma 17 NG/mL 16-232 Ferritin [facility]) ID Date Data Source [id number] 10/20/2020 09:58:00 AM EDT [facility]) Name Value Range Interpretation Code Description Data Marian rce(s) Supporting Document(s) Leukocytes [#/volume] in Blood by Automated count tnp White Blood Cell Count [facility]) ID Date Data Source [id number] 10/20/2020 09:58:00 AM EDT [facility]) Name Value Range Interpretation Code Description Data Marian rce(s) Supporting Document(s) Glucose [Mass/volume] in Serum or Plasma 390 mg/dL 65-99 Above high normal Glucose [facility] ([facility]) Urea nitrogen [Mass/volume] in Serum or Plasma 11 mg/dL 7-25 Urea Nitrogen (BUN) [facility] ([facility]) Creatinine [Mass/volume] in Serum or Plasma 0.63 mg/dL 0.50-1.10 Creatinine [facility] ([facility]) Glomerular filtration rate/1.73 sq M.pre dicted among non-blacks [Volume Rate/Area] in Serum, Plasma or Blood by Creatinine-based formula (CKD-EPI) 111 mL/min/1.73m2 > or = 60 eGFR Non-afr. Israeli [facility]ONEY ([facility]) Glomerular filtration rate/1.73 sq M.pre dicted among blacks [Volume Rate/Area] in Serum, Plasma or Blood by Creatinine-based formula (CKD-EPI) 128 mL/min/1.73m2 > or = 60 eGFR [facility]ONEY ([facility]) Urea nitrogen/Creatinine [Mass Ratio] in Serum or Plasma not applic able 6-22 BUN/creatinine Ratio [facility] ([facility]) Sodium [Moles/volume] in Serum or Plasma 136 mmol/L 135-146 Sodium [facility] ([facility]) Potassium [Moles/volume] in Serum or Plasma 4.7 mmol/L 3.5-5.3 Potassium [facility] ([facility]) Chloride [Moles/volume] in Serum or Plasma 101 mmol/L 98-110 Chloride [place] ([facility]) Carbon dioxide, total [Moles/volume] in Serum or Plasma 18 mmol/ L 20-32 Below low normal Carbon Dioxide [facility] ([facility]) Calcium [Mass/volume] in Serum or Plasma 8.9 mg/dL 8.6-10.2 Calcium [place] ([facility]) Protein [Mass/volume] in Serum or Plasma 6.5 g/dL 6.1-8.1 Protein, [facility] Albumin [Mass/volume] in Serum or Plasma 4.0 g/dL 3.6-5.1 Albumin [facility]) Globulin [Mass/volume] in Serum by calculation 2.5 g/dL_(calc) 1.9- 3.7 Globulin [place] ([facility]) Albumin/Globulin [Mass Ratio] in Serum or Plasma 1.6 (calc) 1.0-2 .5 Albumin/globulin Ratio [place] ([facility]) Bilirubin.total [Mass/volume] in Serum or Plasma 0.6 mg/dL 0.2-1 .2 Bilirubin, Total [facility] ([facility]) Alkaline phosphatase [Enzymatic activity/volume] in Serum or Plasma 66 U/L 31-125 Alkaline Phosphatase [place] ([facility]) Aspartate aminotransferase [Enzymatic activity/volume] in Serum or Plasma 34 U/L 10-30 Above high normal Ast [facility] ([facility]) Alanine aminotransferase [Enzymatic activity/volume] in Seru m or Plasma 38 U/L 6-29 Above high normal Alt [facility]ONEY ([facility]) comment Comment [facility]ONE[facility] ([facility]) ID Date Data Source [id number] 10/20/2020 09:58:00 AM EDT [place] ([facility]) Name Value Range Interpretation Code Description Data Marian rce(s) Supporting Document(s) Albumin [Mass/volume] in Serum or Plasma 4.0 g/dL 3.6-5.1 Albumin [place] ([facility]) Protein [Mass/volume] in Serum or Plasma 6.5 g/dL 6.1-8.1 Protein, Total [place] ([facility]) Albumin/Globulin [Mass Ratio] in Serum or Plasma 1.6 (calc) 1.0-2 .5 Albumin/globulin Ratio [place] ([facility]) Globulin [Mass/volume] in Serum by calculation 2.5 g/dL_(calc) 1.9- 3.7 Globulin [place] ([facility]) Bilirubin.direct [Mass/volume] in Serum or Plasma 0.1 mg/dL < or = 0.2 Bilirubin, Direct [place] ([facility]) Bilirubin.indirect [Mass/volume] in Serum or Plasma 0.5 mg/dL_(calc ) 0.2-1.2 Bilirubin, Indirect [place] ([facility]) Bilirubin.total [Mass/volume] in Serum or Plasma 0.6 mg/dL 0.2-1 .2 Bilirubin, Total [facility] ([facility]) Aspartate aminotransferase [Enzymatic activity/volume] in Serum or Plasma 34 U/L 10-30 Above high normal Ast [facility] ([facility]) Alkaline phosphatase [Enzymatic activity/volume] in Serum or Plasma 66 U/L 31-125 Alkaline Phosphatase [facility] ([facility]) Alanine aminotransferase [Enzymatic activity/volume] in Seru m or Plasma 38 U/L 6-29 Above high normal Alt [facility] ([facility]) ID Date Data Source [id number] 10/20/2020 09:58:00 AM EDT [place] ([facility]) Name Value Range Interpretation Code Description Data Marian rce(s) Supporting Document(s) Gamma glutamyl transferase [Enzymatic activity/volume] in Serum or Plasma 60 U/L 3-55 Above high normal Ggt [facility] ([facility]) ID Date Data Source [id number] 10/20/2020 09:58:00 AM EDT [place] ([facility]) Name Value Range Interpretation Code Description Data Marian rce(s) Supporting Document(s) Creatinine [Mass/volume] in Urine tnp Cr eatinine, Random Urine [facility] ([facility]) Microalbumin [Mass/volume] in Urine tnp Albumin, Urine [facility] ([facility]) ID Date Data Source [id number] 10/20/2020 09:58:00 AM [facility] Name Value Range Interpretation Code Description Data Marian rce(s) Supporting Document(s) Cholesterol [Mass/volume] in Serum or Plasma 178 mg/dL <200 Cholesterol, Total [facility] ([facility]) Cholesterol in HDL [Mass/volume] in Serum or Plasma 33 mg/dL > or = 50 Below low normal HDL Cholesterol [facility] ([facility]) Triglyceride [Mass/volume] in Serum or Plasma 336 mg/dL <150 Above high normal Triglycerides [facility] ([facility]) Cholesterol in LDL [Mass/volume] in Serum or Plasma by calculation 100 mg/dL_(calc) Above high normal LDL-cholesterol [facility] ([facility]) Cholesterol.total/Cholesterol in HDL [Mass Ratio] in Serum o r Plasma 5.4 (calc) <5.0 Above high normal Chol/hdlc Ratio [facility] ([facility]) Cholesterol non HDL [Mass/volume] in Serum or Plasma 145 mg/dL_( calc) <130 Above high normal Non HDL Cholesterol [facility] ([facility]) ID Date Data Source [id number] 10/20/2020 09:58:00 AM EDT [facility]) Name Value Range Interpretation Code Description Data Marian rce(s) Supporting Document(s) Hemoglobin A1c/Hemoglobin.total in Blood tnp [facility]C [facility] ID Date Data Source [id number] 10/20/2020 09:58:00 AM EDT [facility]) Name Value Range Interpretation Code Description Data Marian rce(s) Supporting Document(s) Thyrotropin [Units/volume] in Serum or Plasma 1.11 mIU/L Tsh [facility]) ID Date Data Source [id number] 10/20/2020 09:58:00 AM EDT [facility]) Name Value Range Interpretation Code Description Data Marian rce(s) Supporting Document(s) Ferritin [Mass/volume] in Serum or Plasma 17 NG/mL 16-232 [facility]in [facility] ID Date Data Source [id number] 10/20/2020 09:58:00 AM EDT [facility]) Name Value Range Interpretation Code Description Data Marian rce(s) Supporting Document(s) Leukocytes [#/volume] in Blood by Automated count tnp [facility] ID Date Data Source [id number] 10/20/2020 09:58:00 AM EDT [facility]) Name Value Range Interpretation Code Description Data Marian rce(s) Supporting Document(s) Urea nitrogen [Mass/volume] in Serum or Plasma 11 mg/dL 7-25 Urea Nitrogen (BUN) [facility] ([facility]) Glucose [Mass/volume] in Serum or Plasma 390 mg/dL 65-99 Above high normal Glucose [facility] ([facility]) Glomerular filtration rate/1.73 sq M.pre dicted among blacks [Volume Rate/Area] in Serum, Plasma or Blood by Creatinine-based formula (CKD-EPI) 128 mL/min/1.73m2 > or = 60 eGFR [facility] ([facility]) Creatinine [Mass/volume] in Serum or Plasma 0.63 mg/dL 0.50-1.10 Creatinine [facility] ([facility]) Glomerular filtration rate/1.73 sq M.pre dicted among non-blacks [Volume Rate/Area] in Serum, Plasma or Blood by Creatinine-based formula (CKD-EPI) 111 mL/min/1.73m2 > or = 60 eGFR Non-afr. Israeli [facility]ONEY ([facility]) Urea nitrogen/Creatinine [Mass Ratio] in Serum or Plasma not applic able 6-22 BUN/creatinine Ratio [facility] ([facility]) Sodium [Moles/volume] in Serum or Plasma 136 mmol/L 135-146 Sodium [facility] ([facility]) Potassium [Moles/volume] in Serum or Plasma 4.7 mmol/L 3.5-5.3 Potassium [facility] ([facility]) Carbon dioxide, total [Moles/volume] in Serum or Plasma 18 mmol/ L 20-32 Below low normal Carbon Dioxide [facility] ([facility]) Chloride [Moles/volume] in Serum or Plasma 101 mmol/L 98-110 Chloride [facility] ([facility]) Calcium [Mass/volume] in Serum or Plasma 8.9 mg/dL 8.6-10.2 Calcium [facility] ([facility]) Protein [Mass/volume] in Serum or Plasma 6.5 g/dL 6.1-8.1 Protein, Total [facility] ([facility]) Albumin [Mass/volume] in Serum or Plasma 4.0 g/dL 3.6-5.1 Albumin [facility] ([facility]) Globulin [Mass/volume] in Serum by calculation 2.5 g/dL_(calc) 1.9- 3.7 Globulin [facility] ([facility]) Albumin/Globulin [Mass Ratio] in Serum or Plasma 1.6 (calc) 1.0-2 .5 Albumin/globulin [facility] Bilirubin.total [Mass/volume] in Serum or Plasma 0.6 mg/dL 0.2-1 .2 Bilirubin, Total [facility] ([facility]) Alkaline phosphatase [Enzymatic activity/volume] in Serum or Plasma 66 U/L 31-125 Alkaline Phosphatase [facility] ([facility]) Aspartate aminotransferase [Enzymatic activity/volume] in Serum or Plasma 34 U/L 10-30 Above high normal Ast [facility] ([facility]) Alanine aminotransferase [Enzymatic activity/volume] in Seru m or Plasma 38 U/L 6-29 Above high normal Alt [facility] ([facility]) comment Comment [facility] ([facility]) ID Date Data Source [id number] 10/20/2020 09:58:00 AM EDT [place] ([facility]) Name Value Range Interpretation Code Description Data Marian rce(s) Supporting Document(s) Protein [Mass/volume] in Serum or Plasma 6.5 g/dL 6.1-8.1 Protein, Total [facility] ([facility]) Albumin/Globulin [Mass Ratio] in Serum or Plasma 1.6 (calc) 1.0-2 .5 Albumin/globulin Ratio [place] ([facility]) Globulin [Mass/volume] in Serum by calculation 2.5 g/dL_(calc) 1.9- 3.7 Globulin [place] ([facility]) Albumin [Mass/volume] in Serum or Plasma 4.0 g/dL 3.6-5.1 Albumin [facility] ([facility]) Bilirubin.total [Mass/volume] in Serum or Plasma 0.6 mg/dL 0.2-1 .2 Bilirubin, Total [facility] ([facility]) Bilirubin.direct [Mass/volume] in Serum or Plasma 0.1 mg/dL < or = 0.2 Bilirubin, Direct [facility] ([facility]) Bilirubin.indirect [Mass/volume] in Serum or Plasma 0.5 mg/dL_(calc ) 0.2-1.2 Bilirubin, Indirect [facility] ([facility]) Alkaline phosphatase [Enzymatic activity/volume] in Serum or Plasma 66 U/L 31-125 Alkaline Phosphatase [facility] ([facility]) Aspartate aminotransferase [Enzymatic activity/volume] in Serum or Plasma 34 U/L 10-30 Above high normal Ast [facility] ([facility]) Alanine aminotransferase [Enzymatic activity/volume] in Seru m or Plasma 38 U/L 6-29 Above high normal Alt [facility] ([facility]) ID Date Data Source [id number] 10/20/2020 09:58:00 AM EDT [place] ([facility]) Name Value Range Interpretation Code Description Data Marian rce(s) Supporting Document(s) Gamma glutamyl transferase [Enzymatic activity/volume] in Serum or Plasma 60 U/L 3-55 Above high normal Ggt [facility] ([facility]) ID Date Data Source [id number] 10/20/2020 09:58:00 AM EDT [place] ([facility]) Name Value Range Interpretation Code Description Data Marian rce(s) Supporting Document(s) Creatinine [Mass/volume] in Urine tnp Cr eatinine, Random Urine [facility] ([facility]) Microalbumin [Mass/volume] in Urine tnp Albumin, Urine [facility] ([facility]) ID Date Data Source [id number] 10/20/2020 09:58:00 AM EDT [facility] ([facility]) Name Value Range Interpretation Code Description Data Marian rce(s) Supporting Document(s) Cholesterol [Mass/volume] in Serum or Plasma 178 mg/dL <200 Cholesterol, Total [facility] ([facility]) Cholesterol in HDL [Mass/volume] in Serum or Plasma 33 mg/dL > or = 50 Below low normal HDL Cholesterol [facility] ([facility]) Cholesterol in LDL [Mass/volume] in Serum or Plasma by calculation 100 mg/dL_(calc) Above high normal LDL-cholesterol [facility] ([facility]) Triglyceride [Mass/volume] in Serum or Plasma 336 mg/dL <150 Above high normal Triglycerides [facility] ([facility]) Cholesterol.total/Cholesterol in HDL [Mass Ratio] in Serum o r Plasma 5.4 (calc) <5.0 Above high normal Chol/hdlc Ratio [facility] ([facility]) Cholesterol non HDL [Mass/volume] in Serum or Plasma 145 mg/dL_( calc) <130 Above high normal Non HDL Cholesterol [facility] ([facility]) ID Date Data Source [id number] 10/20/2020 09:58:00 AM EDT [facility] ([facility]) Name Value Range Interpretation Code Description Data Marian rce(s) Supporting Document(s) Hemoglobin A1c/Hemoglobin.total in Blood tnp Hemoglobin a1C [facility] ([facility]) ID Date Data Source [id number] 10/20/2020 09:58:00 AM EDT [facility]) Name Value Range Interpretation Code Description Data Marian rce(s) Supporting Document(s) Thyrotropin [Units/volume] in Serum or Plasma 1.11 mIU/L Tsh [facility] ([facility]) ID Date Data Source [id number] 10/20/2020 09:58:00 AM EDT [facility]) Name Value Range Interpretation Code Description Data Marian rce(s) Supporting Document(s) Ferritin [Mass/volume] in Serum or Plasma 17 NG/mL 16-232 [facility] ID Date Data Source [id number] 10/20/2020 09:58:00 AM EDT [facility]) Name Value Range Interpretation Code Description Data Marian rce(s) Supporting Document(s) Leukocytes [#/volume] in Blood by Automated count tnp White Blood Cell Count [facility]) ID Date Data Source [id number] 10/20/2020 09:58:00 AM EDT [facility]) Name Value Range Interpretation Code Description Data Marian rce(s) Supporting Document(s) Glucose [Mass/volume] in Serum or Plasma 390 mg/dL 65-99 Above high normal Glucose [facility] ([facility]) Urea nitrogen [Mass/volume] in Serum or Plasma 11 mg/dL 7-25 Urea Nitrogen (BUN) [facility] ([facility]) Creatinine [Mass/volume] in Serum or Plasma 0.63 mg/dL 0.50-1.10 Creatinine [facility] ([facility]) Glomerular filtration rate/1.73 sq M.pre dicted among non-blacks [Volume Rate/Area] in Serum, Plasma or Blood by Creatinine-based formula (CKD-EPI) 111 mL/min/1.73m2 > or = 60 eGFR Non-afr. Israeli [facility]ONEY ([facility]) Urea nitrogen/Creatinine [Mass Ratio] in Serum or Plasma not applic able 6-22 BUN/creatinine Ratio [facility] ([facility]) Glomerular filtration rate/1.73 sq M.pre dicted among blacks [Volume Rate/Area] in Serum, Plasma or Blood by Creatinine-based formula (CKD-EPI) 128 mL/min/1.73m2 > or = 60 eGFR TONEY ([facility]) Potassium [Moles/volume] in Serum or Plasma 4.7 mmol/L 3.5-5.3 Potassium TONEY ([facility]) Sodium [Moles/volume] in Serum or Plasma 136 mmol/L 135-146 Sodium TONEY ([facility]) Carbon dioxide, total [Moles/volume] in Serum or Plasma 18 mmol/ L 20-32 Below low normal Carbon Dioxide TONEY ([facility]) Chloride [Moles/volume] in Serum or Plasma 101 mmol/L 98-110 Chloride [facility] ([facility]) Calcium [Mass/volume] in Serum or Plasma 8.9 mg/dL 8.6-10.2 Calcium [facility] ([facility]) Protein [Mass/volume] in Serum or Plasma 6.5 g/dL 6.1-8.1 [facility] Globulin [Mass/volume] in Serum by calculation 2.5 g/dL_(calc) 1.9- 3.7 Globulin [place] ([facility]) Albumin [Mass/volume] in Serum or Plasma 4.0 g/dL 3.6-5.1 Albumin [facility]ONE[facility] ([facility]) Bilirubin.total [Mass/volume] in Serum or Plasma 0.6 mg/dL 0.2-1 .2 Bilirubin, Total [facility] ([facility]) Albumin/Globulin [Mass Ratio] in Serum or Plasma 1.6 (calc) 1.0-2 .5 Albumin/globulin Ratio [facility] ([facility]) Alkaline phosphatase [Enzymatic activity/volume] in Serum or Plasma 66 U/L 31-125 Alkaline Phosphatase [facility]ONE[facility] ([facility]) Alanine aminotransferase [Enzymatic activity/volume] in Seru m or Plasma 38 U/L 6-29 Above high normal Alt TONEY ([facility]) comment Comment [facility]ONE[facility] ([facility]) Aspartate aminotransferase [Enzymatic activity/volume] in Serum or Plasma 34 U/L 10-30 Above high normal Ast [facility]ONEY ([facility]) ID Date Data Source [id number] 10/20/2020 09:58:00 AM EDT [place] ([facility]) Name Value Range Interpretation Code Description Data Marian rce(s) Supporting Document(s) Protein [Mass/volume] in Serum or Plasma 6.5 g/dL 6.1-8.1 Protein, Total [facility]ONE[facility] ([facility]) Globulin [Mass/volume] in Serum by calculation 2.5 g/dL_(calc) 1.9- 3.7 Globulin [facility] ([facility]) Albumin [Mass/volume] in Serum or Plasma 4.0 g/dL 3.6-5.1 Albumin [facility] ([facility]) Albumin/Globulin [Mass Ratio] in Serum or Plasma 1.6 (calc) 1.0-2 .5 Albumin/globulin Ratio [facility] ([facility]) Bilirubin.total [Mass/volume] in Serum or Plasma 0.6 mg/dL 0.2-1 .2 Bilirubin, Total [facility] ([facility]) Bilirubin.direct [Mass/volume] in Serum or Plasma 0.1 mg/dL < or = 0.2 Bilirubin, Direct [facility] ([facility]) Bilirubin.indirect [Mass/volume] in Serum or Plasma 0.5 mg/dL_(calc ) 0.2-1.2 Bilirubin, Indirect [facility] ([facility]) Aspartate aminotransferase [Enzymatic activity/volume] in Serum or Plasma 34 U/L 10-30 Above high normal Ast [facility]ONE[facility] ([facility]) Alkaline phosphatase [Enzymatic activity/volume] in Serum or Plasma 66 U/L 31-125 Alkaline Phosphatase [facility] ([facility]) Alanine aminotransferase [Enzymatic activity/volume] in Seru m or Plasma 38 U/L 6-29 Above high normal Alt [facility] ([facility]) ID Date Data Source [id number] 10/20/2020 09:58:00 AM EDT [facility] ([facility]) Name Value Range Interpretation Code Description Data Marian rce(s) Supporting Document(s) Gamma glutamyl transferase [Enzymatic activity/volume] in Serum or Plasma 60 U/L 3-55 Above high normal Ggt [facility] ([facility]) ID Date Data Source [id number] 10/20/2020 09:58:00 AM EDT [place] ([facility]) Name Value Range Interpretation Code Description Data Marian rce(s) Supporting Document(s) Creatinine [Mass/volume] in Urine tnp Cr eatinine, Random Urine [facility] ([facility]) Microalbumin [Mass/volume] in Urine tnp Albumin, Urine [facility] ([facility]) ID Date Data Source [id number] 10/20/2020 09:58:00 AM EDT [place] ([facility]) Name Value Range Interpretation Code Description Data Marian rce(s) Supporting Document(s) Cholesterol [Mass/volume] in Serum or Plasma 178 mg/dL <200 Cholesterol, Total [facility] ([facility]) Cholesterol in HDL [Mass/volume] in Serum or Plasma 33 mg/dL > or = 50 Below low normal HDL Cholesterol [facility] ([facility]) Triglyceride [Mass/volume] in Serum or Plasma 336 mg/dL <150 Above high normal Triglycerides [facility] ([facility]) Cholesterol in LDL [Mass/volume] in Serum or Plasma by calculation 100 mg/dL_(calc) Above high normal LDL-cholesterol [facility] ([facility]) Cholesterol.total/Cholesterol in HDL [Mass Ratio] in Serum o r Plasma 5.4 (calc) <5.0 Above high normal Chol/hdlc Ratio [facility] ([facility]) Cholesterol non HDL [Mass/volume] in Serum or Plasma 145 mg/dL_( calc) <130 Above high normal Non HDL Cholesterol [facility] ([facility]) ID Date Data Source [id number] 10/20/2020 09:58:00 AM EDT [facility]) Name Value Range Interpretation Code Description Data Marian rce(s) Supporting Document(s) Hemoglobin A1c/Hemoglobin.total in Blood tnp Hemoglobin a1C [facility] ([facility]) ID Date Data Source [id number] 10/20/2020 09:58:00 AM EDT [facility]) Name Value Range Interpretation Code Description Data Marian rce(s) Supporting Document(s) Thyrotropin [Units/volume] in Serum or Plasma 1.11 mIU/L Tsh [facility] ([facility]) ID Date Data Source [id number] 10/20/2020 09:58:00 AM EDT [facility]) Name Value Range Interpretation Code Description Data Marian rce(s) Supporting Document(s) Ferritin [Mass/volume] in Serum or Plasma 17 NG/mL 16-232 [facility] ID Date Data Source [id number] 10/20/2020 09:58:00 AM EDT [facility]) Name Value Range Interpretation Code Description Data Marian rce(s) Supporting Document(s) Leukocytes [#/volume] in Blood by Automated count tnp White Blood Cell Count [place] ([facility]) ID Date Data Source [id number] 10/20/2020 09:58:00 AM EDT [place] ([facility]) Name Value Range Interpretation Code Description Data Marian rce(s) Supporting Document(s) Glucose [Mass/volume] in Serum or Plasma 390 mg/dL 65-99 Above high normal Glucose [facility] ([facility]) Creatinine [Mass/volume] in Serum or Plasma 0.63 mg/dL 0.50-1.10 Creatinine [facility] ([facility]) Urea nitrogen [Mass/volume] in Serum or Plasma 11 mg/dL 7-25 Urea Nitrogen (BUN) [facility] ([facility]) Glomerular filtration rate/1.73 sq M.pre dicted among non-blacks [Volume Rate/Area] in Serum, Plasma or Blood by Creatinine-based formula (CKD-EPI) 111 mL/min/1.73m2 > or = 60 eGFR Non-afr. Israeli [facility]ONEY ([facility]) Glomerular filtration rate/1.73 sq M.pre dicted among blacks [Volume Rate/Area] in Serum, Plasma or Blood by Creatinine-based formula (CKD-EPI) 128 mL/min/1.73m2 > or = 60 eGFR TNOEY ([facility]) Sodium [Moles/volume] in Serum or Plasma 136 mmol/L 135-146 Sodium [facility] ([facility]) Potassium [Moles/volume] in Serum or Plasma 4.7 mmol/L 3.5-5.3 Potassium [facility] ([facility]) Urea nitrogen/Creatinine [Mass Ratio] in Serum or Plasma not applic able 6-22 BUN/creatinine Ratio [facility] ([facility]) Chloride [Moles/volume] in Serum or Plasma 101 mmol/L 98-110 Chloride [facility] ([facility]) Carbon dioxide, total [Moles/volume] in Serum or Plasma 18 mmol/ L 20-32 Below low normal Carbon Dioxide [facility] ([facility]) Calcium [Mass/volume] in Serum or Plasma 8.9 mg/dL 8.6-10.2 Calcium [facility] ([facility]) Protein [Mass/volume] in Serum or Plasma 6.5 g/dL 6.1-8.1 Protein, Total [facility] ([facility]) Albumin [Mass/volume] in Serum or Plasma 4.0 g/dL 3.6-5.1 Albumin [facility] ([facility]) Albumin/Globulin [Mass Ratio] in Serum or Plasma 1.6 (calc) 1.0-2 .5 Albumin/globulin Ratio [facility] ([facility]) Globulin [Mass/volume] in Serum by calculation 2.5 g/dL_(calc) 1.9- 3.7 Globulin [facility] ([facility]) Alkaline phosphatase [Enzymatic activity/volume] in Serum or Plasma 66 U/L 31-125 Alkaline Phosphatase [place] ([facility]) Bilirubin.total [Mass/volume] in Serum or Plasma 0.6 mg/dL 0.2-1 .2 Bilirubin, Total [facility] ([facility]) Aspartate aminotransferase [Enzymatic activity/volume] in Serum or Plasma 34 U/L 10-30 Above high normal Ast [facility] ([facility]) Alanine aminotransferase [Enzymatic activity/volume] in Seru m or Plasma 38 U/L 6-29 Above high normal Alt [facility] ([facility]) comment Comment [facility] ([facility]) ID Date Data Source [id number] 10/20/2020 09:58:00 AM EDT [place] ([facility]) Name Value Range Interpretation Code Description Data Marian rce(s) Supporting Document(s) Protein [Mass/volume] in Serum or Plasma 6.5 g/dL 6.1-8.1 Protein, Total [facility] ([facility]) Albumin [Mass/volume] in Serum or Plasma 4.0 g/dL 3.6-5.1 Albumin [facility] ([facility]) Globulin [Mass/volume] in Serum by calculation 2.5 g/dL_(calc) 1.9- 3.7 Globulin [facility] ([facility]) Albumin/Globulin [Mass Ratio] in Serum or Plasma 1.6 (calc) 1.0-2 .5 Albumin/globulin Ratio [facility] ([facility]) Bilirubin.indirect [Mass/volume] in Serum or Plasma 0.5 mg/dL_(calc ) 0.2-1.2 Bilirubin, Indirect [facility] ([facility]) Bilirubin.total [Mass/volume] in Serum or Plasma 0.6 mg/dL 0.2-1 .2 Bilirubin, Total [facility] ([facility]) Bilirubin.direct [Mass/volume] in Serum or Plasma 0.1 mg/dL < or = 0.2 Bilirubin, Direct [facility] ([facility]) Alkaline phosphatase [Enzymatic activity/volume] in Serum or Plasma 66 U/L 31-125 Alkaline Phosphatase [facility] ([facility]) Aspartate aminotransferase [Enzymatic activity/volume] in Serum or Plasma 34 U/L 10-30 Above high normal Ast [facility]ONE[facility] ([facility]) Alanine aminotransferase [Enzymatic activity/volume] in Seru m or Plasma 38 U/L 6-29 Above high normal Alt [facility] ([facility]) ID Date Data Source [id number] 10/20/2020 09:58:00 AM EDT [place] ([facility]) Name Value Range Interpretation Code Description Data Marian rce(s) Supporting Document(s) Gamma glutamyl transferase [Enzymatic activity/volume] in Serum or Plasma 60 U/L 3-55 Above high normal Ggt [facility] ([facility]) ID Date Data Source [id number] 10/20/2020 09:58:00 AM EDT [place] ([facility]) Name Value Range Interpretation Code Description Data Marian rce(s) Supporting Document(s) Microalbumin [Mass/volume] in Urine tnp Albumin, Urine [facility] ([facility]) Creatinine [Mass/volume] in Urine tnp Cr eatinine, Random Urine [facility] ([facility]) ID Date Data Source [id number] 10/20/2020 09:58:00 AM EDT [facility]) Name Value Range Interpretation Code Description Data Marian rce(s) Supporting Document(s) Cholesterol [Mass/volume] in Serum or Plasma 178 mg/dL <200 Cholesterol, Total [facility] ([facility]) Cholesterol in HDL [Mass/volume] in Serum or Plasma 33 mg/dL > or = 50 Below low normal HDL Cholesterol [facility] ([facility]) Triglyceride [Mass/volume] in Serum or Plasma 336 mg/dL <150 Above high normal Triglycerides [facility] ([facility]) Cholesterol in LDL [Mass/volume] in Serum or Plasma by calculation 100 mg/dL_(calc) Above high normal LDL-cholesterol [facility] ([facility]) Cholesterol non HDL [Mass/volume] in Serum or Plasma 145 mg/dL_( calc) <130 Above high normal Non HDL Cholesterol [facility] ([facility]) Cholesterol.total/Cholesterol in HDL [Mass Ratio] in Serum o r Plasma 5.4 (calc) <5.0 Above high normal Chol/hdlc Ratio [facility] ([facility]) ID Date Data Source [id number] 10/20/2020 09:58:00 AM EDT [facility] ([facility]) Name Value Range Interpretation Code Description Data Marian rce(s) Supporting Document(s) Hemoglobin A1c/Hemoglobin.total in Blood tnp Hemoglobin a1C [facility] ([facility]) ID Date Data Source [id number] 10/20/2020 09:58:00 AM EDT [facility]) Name Value Range Interpretation Code Description Data Marian rce(s) Supporting Document(s) Thyrotropin [Units/volume] in Serum or Plasma 1.11 mIU/L Tsh [facility] ([facility]) ID Date Data Source [id number] 10/20/2020 09:58:00 AM EDT [facility]) Name Value Range Interpretation Code Description Data Marian rce(s) Supporting Document(s) Ferritin [Mass/volume] in Serum or Plasma 17 NG/mL 16-232 [facility] ID Date Data Source [id number] 10/20/2020 09:58:00 AM EDT [place] ([facility]) Name Value Range Interpretation Code Description Data Marian rce(s) Supporting Document(s) Leukocytes [#/volume] in Blood by Automated count tnp White Blood Cell Count [facility]) ID Date Data Source [id number] 10/20/2020 09:58:00 AM [facility] Name Value Range Interpretation Code Description Data Marian rce(s) Supporting Document(s) Glucose [Mass/volume] in Serum or Plasma 390 mg/dL 65-99 Above high normal Glucose [facility] ([facility]) Urea nitrogen [Mass/volume] in Serum or Plasma 11 mg/dL 7-25 Urea Nitrogen (BUN) [facility]) Creatinine [Mass/volume] in Serum or Plasma 0.63 mg/dL 0.50-1.10 Creatinine [facility] ([facility]) Glomerular filtration rate/1.73 sq M.pre dicted among blacks [Volume Rate/Area] in Serum, Plasma or Blood by Creatinine-based formula (CKD-EPI) 128 mL/min/1.73m2 > or = 60 eGFR [facility] ([facility]) Glomerular filtration rate/1.73 sq M.pre dicted among non-blacks [Volume Rate/Area] in Serum, Plasma or Blood by Creatinine-based formula (CKD-EPI) 111 mL/min/1.73m2 > or = 60 eGFR Non-afr. Israeli TONEY ([facility]) Sodium [Moles/volume] in Serum or Plasma 136 mmol/L 135-146 Sodium [facility] ([facility]) Urea nitrogen/Creatinine [Mass Ratio] in Serum or Plasma not applic able 6-22 BUN/creatinine Ratio [facility] ([facility]) Potassium [Moles/volume] in Serum or Plasma 4.7 mmol/L 3.5-5.3 [facility] Chloride [Moles/volume] in Serum or Plasma 101 mmol/L 98-110 Chloride [place] ([facility]) Carbon dioxide, total [Moles/volume] in Serum or Plasma 18 mmol/ L 20-32 Below low normal Carbon Dioxide [facility] ([facility]) Calcium [Mass/volume] in Serum or Plasma 8.9 mg/dL 8.6-10.2 Calcium [facility] ([facility]) Protein [Mass/volume] in Serum or Plasma 6.5 g/dL 6.1-8.1 Protein, Total [facility] ([facility]) Albumin [Mass/volume] in Serum or Plasma 4.0 g/dL 3.6-5.1 Albumin [facility] ([facility]) Globulin [Mass/volume] in Serum by calculation 2.5 g/dL_(calc) 1.9- 3.7 Globulin [facility] ([facility]) Albumin/Globulin [Mass Ratio] in Serum or Plasma 1.6 (calc) 1.0-2 .5 Albumin/globulin Ratio [facility] ([facility]) Bilirubin.total [Mass/volume] in Serum or Plasma 0.6 mg/dL 0.2-1 .2 Bilirubin, Total [facility] ([facility]) Alkaline phosphatase [Enzymatic activity/volume] in Serum or Plasma 66 U/L 31-125 Alkaline Phosphatase [facility] ([facility]) Aspartate aminotransferase [Enzymatic activity/volume] in Serum or Plasma 34 U/L 10-30 Above high normal Ast [facility] ([facility]) Alanine aminotransferase [Enzymatic activity/volume] in Seru m or Plasma 38 U/L 6-29 Above high normal Alt [facility] ([facility]) comment Comment [facility] ([facility]) ID Date Data Source [id number] 10/20/2020 09:58:00 AM EDT [facility] ([facility]) Name Value Range Interpretation Code Description Data Marian rce(s) Supporting Document(s) Protein [Mass/volume] in Serum or Plasma 6.5 g/dL 6.1-8.1 Protein, Total [facility] ([facility]) Albumin [Mass/volume] in Serum or Plasma 4.0 g/dL 3.6-5.1 Albumin [facility] ([facility]) Globulin [Mass/volume] in Serum by calculation 2.5 g/dL_(calc) 1.9- 3.7 Globulin [facility] ([facility]) Albumin/Globulin [Mass Ratio] in Serum or Plasma 1.6 (calc) 1.0-2 .5 Albumin/globulin Ratio [facility] ([facility]) Bilirubin.total [Mass/volume] in Serum or Plasma 0.6 mg/dL 0.2-1 .2 Bilirubin, Total [facility] ([facility]) Bilirubin.direct [Mass/volume] in Serum or Plasma 0.1 mg/dL < or = 0.2 Bilirubin, Direct [facility] ([facility]) Bilirubin.indirect [Mass/volume] in Serum or Plasma 0.5 mg/dL_(calc ) 0.2-1.2 Bilirubin, Indirect [facility] ([facility]) Alkaline phosphatase [Enzymatic activity/volume] in Serum or Plasma 66 U/L 31-125 Alkaline Phosphatase [facility] ([facility]) Aspartate aminotransferase [Enzymatic activity/volume] in Serum or Plasma 34 U/L 10-30 Above high normal Ast [facility] ([facility]) Alanine aminotransferase [Enzymatic activity/volume] in Seru m or Plasma 38 U/L 6-29 Above high normal Alt [facility] ([facility]) ID Date Data Source [id number] 10/20/2020 09:58:00 AM EDT [place] ([facility]) Name Value Range Interpretation Code Description Data Marian rce(s) Supporting Document(s) Gamma glutamyl transferase [Enzymatic activity/volume] in Serum or Plasma 60 U/L 3-55 Above high normal Ggt [facility] ([facility]) ID Date Data Source [id number] 10/20/2020 09:58:00 AM EDT [place] ([facility]) Name Value Range Interpretation Code Description Data Marian rce(s) Supporting Document(s) Creatinine [Mass/volume] in Urine tnp Cr eatinine, Random Urine [facility] ([facility]) Microalbumin [Mass/volume] in Urine tnp Albumin, Urine [facility] ([facility]) ID Date Data Source [id number] 10/20/2020 09:58:00 AM EDT [facility] ([facility]) Name Value Range Interpretation Code Description Data Marian rce(s) Supporting Document(s) Cholesterol [Mass/volume] in Serum or Plasma 178 mg/dL <200 Cholesterol, Total [facility] ([facility]) Cholesterol in HDL [Mass/volume] in Serum or Plasma 33 mg/dL > or = 50 Below low normal HDL Cholesterol [facility] ([facility]) Triglyceride [Mass/volume] in Serum or Plasma 336 mg/dL <150 Above high normal Triglycerides [facility] ([facility]) Cholesterol in LDL [Mass/volume] in Serum or Plasma by calculation 100 mg/dL_(calc) Above high normal LDL-cholesterol [facility] ([facility]) Cholesterol.total/Cholesterol in HDL [Mass Ratio] in Serum o r Plasma 5.4 (calc) <5.0 Above high normal Chol/hdlc Ratio [facility] ([facility]) Cholesterol non HDL [Mass/volume] in Serum or Plasma 145 mg/dL_( calc) <130 Above high normal Non HDL Cholesterol [facility] ([facility]) ID Date Data Source [id number] 10/20/2020 09:58:00 AM EDT [facility]) Name Value Range Interpretation Code Description Data Marian rce(s) Supporting Document(s) Hemoglobin A1c/Hemoglobin.total in Blood tnp Hemoglobin a1C [facility] ([facility]) ID Date Data Source [id number] 10/20/2020 09:58:00 AM EDT [facility]) Name Value Range Interpretation Code Description Data Marian rce(s) Supporting Document(s) Thyrotropin [Units/volume] in Serum or Plasma 1.11 mIU/L [facility] ID Date Data Source [id number] 10/20/2020 09:58:00 AM [facility] Name Value Range Interpretation Code Description Data Marian rce(s) Supporting Document(s) Ferritin [Mass/volume] in Serum or Plasma 17 NG/mL 16-232 [facility] ID Date Data Source [id number] 10/20/2020 09:58:00 AM EDT [facility]) Name Value Range Interpretation Code Description Data Marian rce(s) Supporting Document(s) Leukocytes [#/volume] in Blood by Automated count tnp White Blood Cell Count [facility]) ID Date Data Source [id number] 10/20/2020 09:58:00 AM EDT [facility]) Name Value Range Interpretation Code Description Data Marian rce(s) Supporting Document(s) Glucose [Mass/volume] in Serum or Plasma 390 mg/dL 65-99 Above high normal Glucose [facility] ([facility]) Urea nitrogen [Mass/volume] in Serum or Plasma 11 mg/dL 7-25 Urea Nitrogen (BUN) [facility] Creatinine [Mass/volume] in Serum or Plasma 0.63 mg/dL 0.50-1.10 Creatinine [facility] Glomerular filtration rate/1.73 sq M.pre dicted among blacks [Volume Rate/Area] in Serum, Plasma or Blood by Creatinine-based formula (CKD-EPI) 128 mL/min/1.73m2 > or = 60 eGFR [facility]ONEY ([facility]) Glomerular filtration rate/1.73 sq M.pre dicted among non-blacks [Volume Rate/Area] in Serum, Plasma or Blood by Creatinine-based formula (CKD-EPI) 111 mL/min/1.73m2 > or = 60 eGFR Non-afr. Israeli TONEY ([facility]) Sodium [Moles/volume] in Serum or Plasma 136 mmol/L 135-146 Sodium [facility] ([facility]) Urea nitrogen/Creatinine [Mass Ratio] in Serum or Plasma not applic able 6-22 BUN/creatinine Ratio [facility]) Potassium [Moles/volume] in Serum or Plasma 4.7 mmol/L 3.5-5.3 Potassium [facility] ([facility]) Chloride [Moles/volume] in Serum or Plasma 101 mmol/L 98-110 Chloride [facility] ([facility]) Calcium [Mass/volume] in Serum or Plasma 8.9 mg/dL 8.6-10.2 Calcium [facility] ([facility]) Carbon dioxide, total [Moles/volume] in Serum or Plasma 18 mmol/ L 20-32 Below low normal Carbon Dioxide [facility] ([facility]) Protein [Mass/volume] in Serum or Plasma 6.5 g/dL 6.1-8.1 Protein, Total [facility] ([facility]) Albumin [Mass/volume] in Serum or Plasma 4.0 g/dL 3.6-5.1 Albumin [facility] ([facility]) Globulin [Mass/volume] in Serum by calculation 2.5 g/dL_(calc) 1.9- 3.7 Globulin [facility] ([facility]) Albumin/Globulin [Mass Ratio] in Serum or Plasma 1.6 (calc) 1.0-2 .5 Albumin/globulin Ratio [facility] ([facility]) Bilirubin.total [Mass/volume] in Serum or Plasma 0.6 mg/dL 0.2-1 .2 Bilirubin, Total [facility] ([facility]) Alkaline phosphatase [Enzymatic activity/volume] in Serum or Plasma 66 U/L 31-125 Alkaline Phosphatase [facility] ([facility]) Aspartate aminotransferase [Enzymatic activity/volume] in Serum or Plasma 34 U/L 10-30 Above high normal Ast [facility]ONE[facility] ([facility]) comment Comment [facility] ([facility]) Alanine aminotransferase [Enzymatic activity/volume] in Seru m or Plasma 38 U/L 6-29 Above high normal Alt [facility] ([facility]) ID Date Data Source [id number] 10/20/2020 09:58:00 AM EDT [place] ([facility]) Name Value Range Interpretation Code Description Data Marian rce(s) Supporting Document(s) Protein [Mass/volume] in Serum or Plasma 6.5 g/dL 6.1-8.1 Protein, Total [facility] ([facility]) Albumin [Mass/volume] in Serum or Plasma 4.0 g/dL 3.6-5.1 Albumin [facility] ([facility]) Globulin [Mass/volume] in Serum by calculation 2.5 g/dL_(calc) 1.9- 3.7 Globulin [facility] ([facility]) Albumin/Globulin [Mass Ratio] in Serum or Plasma 1.6 (calc) 1.0-2 .5 Albumin/globulin Ratio [facility] ([facility]) Bilirubin.total [Mass/volume] in Serum or Plasma 0.6 mg/dL 0.2-1 .2 Bilirubin, Total [facility] ([facility]) Bilirubin.indirect [Mass/volume] in Serum or Plasma 0.5 mg/dL_(calc ) 0.2-1.2 Bilirubin, Indirect [facility] ([facility]) Bilirubin.direct [Mass/volume] in Serum or Plasma 0.1 mg/dL < or = 0.2 Bilirubin, Direct [facility] ([facility]) Alkaline phosphatase [Enzymatic activity/volume] in Serum or Plasma 66 U/L 31-125 Alkaline Phosphatase [facility] ([facility]) Aspartate aminotransferase [Enzymatic activity/volume] in Serum or Plasma 34 U/L 10-30 Above high normal Ast TONEY ([facility]) Alanine aminotransferase [Enzymatic activity/volume] in Seru m or Plasma 38 U/L 6-29 Above high normal Alt [facility] ([facility]) ID Date Data Source [id number] 10/20/2020 09:58:00 AM EDT [facility] ([facility]) Name Value Range Interpretation Code Description Data Marian rce(s) Supporting Document(s) Gamma glutamyl transferase [Enzymatic activity/volume] in Serum or Plasma 60 U/L 3-55 Above high normal Ggt [facility]ONE[facility] ([facility]) ID Date Data Source [id number] 10/20/2020 09:58:00 AM EDT [place] ([facility]) Name Value Range Interpretation Code Description Data Marian rce(s) Supporting Document(s) Creatinine [Mass/volume] in Urine tnp Cr eatinine, Random Urine [facility]ONE[facility] ([facility]) Microalbumin [Mass/volume] in Urine tnp Albumin, Urine [facility] ([facility]) ID Date Data Source [id number] 10/20/2020 09:58:00 AM EDT [place] ([facility]) Name Value Range Interpretation Code Description Data Marian rce(s) Supporting Document(s) Cholesterol [Mass/volume] in Serum or Plasma 178 mg/dL <200 Cholesterol, Total [facility] ([facility]) Cholesterol in HDL [Mass/volume] in Serum or Plasma 33 mg/dL > or = 50 Below low normal HDL Cholesterol [place] ([facility]) Triglyceride [Mass/volume] in Serum or Plasma 336 mg/dL <150 Above high normal Triglycerides [place] ([facility]) Cholesterol.total/Cholesterol in HDL [Mass Ratio] in Serum o r Plasma 5.4 (calc) <5.0 Above high normal Chol/hdlc Ratio [facility]ONEY ([facility]) Cholesterol in LDL [Mass/volume] in Serum or Plasma by calculation 100 mg/dL_(calc) Above high normal LDL-cholesterol [place] ([facility]) Cholesterol non HDL [Mass/volume] in Serum or Plasma 145 mg/dL_( calc) <130 Above high normal Non HDL Cholesterol [place] ([facility]) ID Date Data Source [id number] 10/14/2020 09:52:00 AM EDT [facility] Name Value Range Interpretation Code Description Data [facility] rce(s) Supporting Document(s) Surgical pathology study [facility], ) FINAL DIAGNOSIS Soft tissue, left [...] Entirely submitted in one block after decalcification. SHIV 10/15/2020 - 1337 Signed MATTHEW MÉNDEZ MD 10/18/2020 1358 ID Date Data Source [id number] 09/27/2020 12:00:00 AM EDT [facility]) Name Value Range Interpretation Code Description Data Marian rce(s) Supporting Document(s) Lipase [Enzymatic activity/volume] in Serum or Plasma 20 U/L 7-60 Lipase [facility]) ID Date Data Source [id number] 09/27/2020 12:00:00 AM EDT [facility]) Name Value Range Interpretation Code Description Data Marian rce(s) Supporting Document(s) Glucose [Mass/volume] in Serum or Plasma 379 mg/dL 65-99 Above high normal Glucose [facility] ([facility]) Urea nitrogen [Mass/volume] in Serum or Plasma 9 mg/dL 7-25 Urea Nitrogen (BUN) [facility]) Creatinine [Mass/volume] in Serum or Plasma 0.57 mg/dL 0.50-1.10 Creatinine [facility]) Glomerular filtration rate/1.73 sq M.pre dicted among non-blacks [Volume Rate/Area] in Serum, Plasma or Blood by Creatinine-based formula (CKD-EPI) 114 mL/min/1.73m2 > or = 60 eGFR Non-afr. Israeli [facility] ([facility]) Glomerular filtration rate/1.73 sq M.pre dicted among blacks [Volume Rate/Area] in Serum, Plasma or Blood by Creatinine-based formula (CKD-EPI) 133 mL/min/1.73m2 > or = 60 eGFR [facility] ([facility]) Sodium [Moles/volume] in Serum or Plasma 135 mmol/L 135-146 Sodium [place] ([facility]) Urea nitrogen/Creatinine [Mass Ratio] in Serum or Plasma not applic able 6-22 BUN/creatinine Ratio [facility] ([facility]) Potassium [Moles/volume] in Serum or Plasma 3.9 mmol/L 3.5-5.3 Potassium [facility] ([facility]) Chloride [Moles/volume] in Serum or Plasma 98 mmol/L 98-110 Chloride [facility] ([facility]) Carbon dioxide, total [Moles/volume] in Serum or Plasma 26 mmol/L 20-32 Carbon Dioxide [facility] ([facility]) Calcium [Mass/volume] in Serum or Plasma 8.9 mg/dL 8.6-10.2 Calcium [facility] ([facility]) Albumin [Mass/volume] in Serum or Plasma 3.9 g/dL 3.6-5.1 Albumin [facility] ([facility]) Protein [Mass/volume] in Serum or Plasma 6.4 g/dL 6.1-8.1 Protein, Total [facility] ([facility]) Globulin [Mass/volume] in Serum by calculation 2.5 g/dL_(calc) 1.9- 3.7 Globulin [facility] ([facility]) Albumin/Globulin [Mass Ratio] in Serum or Plasma 1.6 (calc) 1.0-2 .5 Albumin/globulin Ratio [facility] ([facility]) Aspartate aminotransferase [Enzymatic activity/volume] in Serum or Plasma 103 U/L 10-30 Above high normal Ast [facility]ONE[facility] ([facility]) Bilirubin.total [Mass/volume] in Serum or Plasma 0.7 mg/dL 0.2-1 .2 Bilirubin, Total [facility] ([facility]) Alkaline phosphatase [Enzymatic activity/volume] in Serum or Plasma 115 U/L 31-125 Alkaline Phosphatase [facility] ([facility]) Alanine aminotransferase [Enzymatic activity/volume] in Seru m or Plasma 116 U/L 6-29 Above high normal Alt [facility] ([facility]) ID Date Data Source [id number] 09/27/2020 12:00:00 AM EDT [facility] ([facility]) Name Value Range Interpretation Code Description Data Marian rce(s) Supporting Document(s) Lipase [Enzymatic activity/volume] in Serum or Plasma 20 U/L 7-60 Lipase [place] ([facility]) ID Date Data Source [id number] 09/27/2020 12:00:00 AM EDT [place] ([facility]) Name Value Range Interpretation Code Description Data Marian rce(s) Supporting Document(s) Glucose [Mass/volume] in Serum or Plasma 379 mg/dL 65-99 Above high normal Glucose [facility] ([facility]) Urea nitrogen [Mass/volume] in Serum or Plasma 9 mg/dL 7-25 Urea Nitrogen (BUN) [facility] ([facility]) Creatinine [Mass/volume] in Serum or Plasma 0.57 mg/dL 0.50-1.10 Creatinine [place] ([facility]) Glomerular filtration rate/1.73 sq M.pre dicted among blacks [Volume Rate/Area] in Serum, Plasma or Blood by Creatinine-based formula (CKD-EPI) 133 mL/min/1.73m2 > or = 60 eGFR [facility]ONEY ([facility]) Glomerular filtration rate/1.73 sq M.pre dicted among non-blacks [Volume Rate/Area] in Serum, Plasma or Blood by Creatinine-based formula (CKD-EPI) 114 mL/min/1.73m2 > or = 60 eGFR Non-afr. Israeli [facility]ONE[facility] ([facility]) Sodium [Moles/volume] in Serum or Plasma 135 mmol/L 135-146 Sodium [facility] ([facility]) Potassium [Moles/volume] in Serum or Plasma 3.9 mmol/L 3.5-5.3 Potassium [facility] ([facility]) Urea nitrogen/Creatinine [Mass Ratio] in Serum or Plasma not applic able 6-22 BUN/creatinine Ratio [facility] ([facility]) Carbon dioxide, total [Moles/volume] in Serum or Plasma 26 mmol/L 20-32 Carbon Dioxide [facility] ([facility]) Chloride [Moles/volume] in Serum or Plasma 98 mmol/L 98-110 Chloride [facility] ([facility]) Calcium [Mass/volume] in Serum or Plasma 8.9 mg/dL 8.6-10.2 Calcium [facility] ([facility]) Protein [Mass/volume] in Serum or Plasma 6.4 g/dL 6.1-8.1 Protein, Total [facility] ([facility]) Globulin [Mass/volume] in Serum by calculation 2.5 g/dL_(calc) 1.9- 3.7 Globulin [facility] ([facility]) Albumin [Mass/volume] in Serum or Plasma 3.9 g/dL 3.6-5.1 Albumin [facility] ([facility]) Albumin/Globulin [Mass Ratio] in Serum or Plasma 1.6 (calc) 1.0-2 .5 Albumin/globulin Ratio [facility] ([facility]) Alkaline phosphatase [Enzymatic activity/volume] in Serum or Plasma 115 U/L 31-125 Alkaline Phosphatase [facility] ([facility]) Bilirubin.total [Mass/volume] in Serum or Plasma 0.7 mg/dL 0.2-1 .2 Bilirubin, Total [facility] ([facility]) Alanine aminotransferase [Enzymatic activity/volume] in Seru m or Plasma 116 U/L 6-29 Above high normal Alt [facility] ([facility]) Aspartate aminotransferase [Enzymatic activity/volume] in Serum or Plasma 103 U/L 10-30 Above high normal Ast [facility] ([facility]) ID Date Data Source [id number] 09/27/2020 12:00:00 AM EDT [facility] ([facility]) Name Value Range Interpretation Code Description Data Marian rce(s) Supporting Document(s) Lipase [Enzymatic activity/volume] in Serum or Plasma 20 U/L 7-60 Lipase [facility] ([facility]) ID Date Data Source [id number] 09/27/2020 12:00:00 [facility] Name Value Range Interpretation Code Description Data Marian rce(s) Supporting Document(s) Glucose [Mass/volume] in Serum or Plasma 379 mg/dL 65-99 Above high normal Glucose [facility] ([facility]) Urea nitrogen [Mass/volume] in Serum or Plasma 9 mg/dL 7-25 Urea Nitrogen (BUN) [facility] ([facility]) Creatinine [Mass/volume] in Serum or Plasma 0.57 mg/dL 0.50-1.10 Creatinine [facility] ([facility]) Glomerular filtration rate/1.73 sq M.pre dicted among blacks [Volume Rate/Area] in Serum, Plasma or Blood by Creatinine-based formula (CKD-EPI) 133 mL/min/1.73m2 > or = 60 eGFR [facility] ([facility]) Glomerular filtration rate/1.73 sq M.pre dicted among non-blacks [Volume Rate/Area] in Serum, Plasma or Blood by Creatinine-based formula (CKD-EPI) 114 mL/min/1.73m2 > or = 60 eGFR Non-afr. Israeli TONEY ([facility]) Urea nitrogen/Creatinine [Mass Ratio] in Serum or Plasma not applic able 6-22 BUN/creatinine Ratio [facility] ([facility]) Sodium [Moles/volume] in Serum or Plasma 135 mmol/L 135-146 Sodium [facility] ([facility]) Potassium [Moles/volume] in Serum or Plasma 3.9 mmol/L 3.5-5.3 Potassium [facility] ([facility]) Calcium [Mass/volume] in Serum or Plasma 8.9 mg/dL 8.6-10.2 Calcium [facility] ([facility]) Carbon dioxide, total [Moles/volume] in Serum or Plasma 26 mmol/L 20-32 Carbon Dioxide [facility] ([facility]) Chloride [Moles/volume] in Serum or Plasma 98 mmol/L 98-110 Chloride [facility] ([facility]) Albumin [Mass/volume] in Serum or Plasma 3.9 g/dL 3.6-5.1 Albumin [facility] ([facility]) Protein [Mass/volume] in Serum or Plasma 6.4 g/dL 6.1-8.1 [facility] Globulin [Mass/volume] in Serum by calculation 2.5 g/dL_(calc) 1.9- 3.7 Globulin [facility] ([facility]) Albumin/Globulin [Mass Ratio] in Serum or Plasma 1.6 (calc) 1.0-2 .5 Albumin/globulin Ratio [facility] ([facility]) Bilirubin.total [Mass/volume] in Serum or Plasma 0.7 mg/dL 0.2-1 .2 Bilirubin, Total [facility] ([facility]) Alanine aminotransferase [Enzymatic activity/volume] in Seru m or Plasma 116 U/L 6-29 Above high normal Alt [facility] ([facility]) Alkaline phosphatase [Enzymatic activity/volume] in Serum or Plasma 115 U/L 31-125 Alkaline Phosphatase [facility] ([facility]) Aspartate aminotransferase [Enzymatic activity/volume] in Serum or Plasma 103 U/L 10-30 Above high normal Ast [facility]ONE[facility] ([facility]) ID Date Data Source [id number] 09/27/2020 12:00:00 AM EDT [facility]) Name Value Range Interpretation Code Description Data Marian rce(s) Supporting Document(s) Lipase [Enzymatic activity/volume] in Serum or Plasma 20 U/L 7-60 Lipase [facility] ([facility]) ID Date Data Source [id number] 09/27/2020 12:00:00 AM EDT [facility]) Name Value Range Interpretation Code Description Data Marian rce(s) Supporting Document(s) Glucose [Mass/volume] in Serum or Plasma 379 mg/dL 65-99 Above high normal Glucose [facility] ([facility]) Creatinine [Mass/volume] in Serum or Plasma 0.57 mg/dL 0.50-1.10 Creatinine [facility] ([facility]) Urea nitrogen [Mass/volume] in Serum or Plasma 9 mg/dL 7-25 Urea Nitrogen (BUN) [facility] ([facility]) Urea nitrogen/Creatinine [Mass Ratio] in Serum or Plasma not applic able 6-22 BUN/creatinine Ratio [facility] ([facility]) Glomerular filtration rate/1.73 sq M.pre dicted among blacks [Volume Rate/Area] in Serum, Plasma or Blood by Creatinine-based formula (CKD-EPI) 133 mL/min/1.73m2 > or = 60 eGFR [facility] ([facility]) Glomerular filtration rate/1.73 sq M.pre dicted among non-blacks [Volume Rate/Area] in Serum, Plasma or Blood by Creatinine-based formula (CKD-EPI) 114 mL/min/1.73m2 > or = 60 eGFR Non-afr. Israeli TONEY ([facility]) Sodium [Moles/volume] in Serum or Plasma 135 mmol/L 135-146 Sodium [facility] ([facility]) Potassium [Moles/volume] in Serum or Plasma 3.9 mmol/L 3.5-5.3 Potassium [facility] ([facility]) Chloride [Moles/volume] in Serum or Plasma 98 mmol/L 98-110 Chloride [facility] ([facility]) Carbon dioxide, total [Moles/volume] in Serum or Plasma 26 mmol/L 20-32 Carbon Dioxide [facility] ([facility]) Calcium [Mass/volume] in Serum or Plasma 8.9 mg/dL 8.6-10.2 Calcium [place] ([facility]) Protein [Mass/volume] in Serum or Plasma 6.4 g/dL 6.1-8.1 Protein, Total [facility] ([facility]) Albumin [Mass/volume] in Serum or Plasma 3.9 g/dL 3.6-5.1 Albumin [place] ([facility]) Globulin [Mass/volume] in Serum by calculation 2.5 g/dL_(calc) 1.9- 3.7 Globulin [facility]) Bilirubin.total [Mass/volume] in Serum or Plasma 0.7 mg/dL 0.2-1 .2 Bilirubin, Total [place] ([facility]) Albumin/Globulin [Mass Ratio] in Serum or Plasma 1.6 (calc) 1.0-2 .5 Albumin/globulin Ratio [facility] ([facility]) Alkaline phosphatase [Enzymatic activity/volume] in Serum or Plasma 115 U/L 31-125 Alkaline Phosphatase [facility] ([facility]) Alanine aminotransferase [Enzymatic activity/volume] in Seru m or Plasma 116 U/L 6-29 Above high normal Alt [facility] ([facility]) Aspartate aminotransferase [Enzymatic activity/volume] in Serum or Plasma 103 U/L 10-30 Above high normal Ast [facility] ([facility]) ID Date Data Source [id number] 09/27/2020 12:00:00 AM EDT [facility]) Name Value Range Interpretation Code Description Data Marian rce(s) Supporting Document(s) Lipase [Enzymatic activity/volume] in Serum or Plasma 20 U/L 7-60 [facility] ID Date Data Source [id number] 09/27/2020 12:00:00 AM EDT [facility] ([facility]) Name Value Range Interpretation Code Description Data Marian rce(s) Supporting Document(s) Glucose [Mass/volume] in Serum or Plasma 379 mg/dL 65-99 Above high normal Glucose [facility] ([facility]) Urea nitrogen [Mass/volume] in Serum or Plasma 9 mg/dL 7-25 Urea Nitrogen (BUN) [facility] Glomerular filtration rate/1.73 sq M.pre dicted among blacks [Volume Rate/Area] in Serum, Plasma or Blood by Creatinine-based formula (CKD-EPI) 133 mL/min/1.73m2 > or = 60 eGFR [facility] ([facility]) Creatinine [Mass/volume] in Serum or Plasma 0.57 mg/dL 0.50-1.10 Creatinine [facility]) Glomerular filtration rate/1.73 sq M.pre dicted among non-blacks [Volume Rate/Area] in Serum, Plasma or Blood by Creatinine-based formula (CKD-EPI) 114 mL/min/1.73m2 > or = 60 eGFR Non-afr. Israeli TONEY ([facility]) Sodium [Moles/volume] in Serum or Plasma 135 mmol/L 135-146 Sodium [facility] ([facility]) Urea nitrogen/Creatinine [Mass Ratio] in Serum or Plasma not applic able 6-22 BUN/creatinine Ratio [facility] ([facility]) Chloride [Moles/volume] in Serum or Plasma 98 mmol/L 98-110 Chloride [facility] ([facility]) Potassium [Moles/volume] in Serum or Plasma 3.9 mmol/L 3.5-5.3 Potassium [facility] ([facility]) Carbon dioxide, total [Moles/volume] in Serum or Plasma 26 mmol/L 20-32 Carbon Dioxide [facility] ([facility]) Protein [Mass/volume] in Serum or Plasma 6.4 g/dL 6.1-8.1 Protein, Total [facility] ([facility]) Calcium [Mass/volume] in Serum or Plasma 8.9 mg/dL 8.6-10.2 Calcium [facility] ([facility]) Globulin [Mass/volume] in Serum by calculation 2.5 g/dL_(calc) 1.9- 3.7 Globulin [facility] ([facility]) Albumin [Mass/volume] in Serum or Plasma 3.9 g/dL 3.6-5.1 Albumin [facility] ([facility]) Albumin/Globulin [Mass Ratio] in Serum or Plasma 1.6 (calc) 1.0-2 .5 Albumin/globulin Ratio [facility] ([facility]) Alkaline phosphatase [Enzymatic activity/volume] in Serum or Plasma 115 U/L 31-125 Alkaline Phosphatase [facility] ([facility]) Aspartate aminotransferase [Enzymatic activity/volume] in Serum or Plasma 103 U/L 10-30 Above high normal Ast [facility]ONE[facility] ([facility]) Bilirubin.total [Mass/volume] in Serum or Plasma 0.7 mg/dL 0.2-1 .2 Bilirubin, Total [facility] ([facility]) Alanine aminotransferase [Enzymatic activity/volume] in Seru m or Plasma 116 U/L 6-29 Above high normal Alt [facility] ([facility]) ID Date Data Source [id number] 09/27/2020 12:00:00 AM EDT [facility] ([facility]) Name Value Range Interpretation Code Description Data Marian rce(s) Supporting Document(s) Lipase [Enzymatic activity/volume] in Serum or Plasma 20 U/L 7-60 Lipase [place] ([facility]) ID Date Data Source [id number] 09/27/2020 12:00:00 AM EDT [facility] ([facility]) Name Value Range Interpretation Code Description Data Marian rce(s) Supporting Document(s) Glucose [Mass/volume] in Serum or Plasma 379 mg/dL 65-99 Above high normal Glucose [facility] ([facility]) Urea nitrogen [Mass/volume] in Serum or Plasma 9 mg/dL 7-25 Urea Nitrogen (BUN) [facility] ([facility]) Creatinine [Mass/volume] in Serum or Plasma 0.57 mg/dL 0.50-1.10 Creatinine [facility] ([facility]) Glomerular filtration rate/1.73 sq M.pre dicted among blacks [Volume Rate/Area] in Serum, Plasma or Blood by Creatinine-based formula (CKD-EPI) 133 mL/min/1.73m2 > or = 60 eGFR [facility] ([facility]) Glomerular filtration rate/1.73 sq M.pre dicted among non-blacks [Volume Rate/Area] in Serum, Plasma or Blood by Creatinine-based formula (CKD-EPI) 114 mL/min/1.73m2 > or = 60 eGFR Non-afr. Israeli TONEY ([facility]) Urea nitrogen/Creatinine [Mass Ratio] in Serum or Plasma not applic able 6-22 BUN/creatinine Ratio [facility] ([facility]) Chloride [Moles/volume] in Serum or Plasma 98 mmol/L 98-110 Chloride [facility] ([facility]) Sodium [Moles/volume] in Serum or Plasma 135 mmol/L 135-146 Sodium [facility] ([facility]) Potassium [Moles/volume] in Serum or Plasma 3.9 mmol/L 3.5-5.3 Potassium [facility] ([facility]) Calcium [Mass/volume] in Serum or Plasma 8.9 mg/dL 8.6-10.2 Calcium [facility] ([facility]) Carbon dioxide, total [Moles/volume] in Serum or Plasma 26 mmol/L 20-32 Carbon Dioxide [facility] ([facility]) Protein [Mass/volume] in Serum or Plasma 6.4 g/dL 6.1-8.1 [facility], [facility] Albumin/Globulin [Mass Ratio] in Serum or Plasma 1.6 (calc) 1.0-2 .5 Albumin/globulin Ratio [facility] ([facility]) Globulin [Mass/volume] in Serum by calculation 2.5 g/dL_(calc) 1.9- 3.7 Globulin [facility] ([facility]) Albumin [Mass/volume] in Serum or Plasma 3.9 g/dL 3.6-5.1 Albumin [facility] ([facility]) Bilirubin.total [Mass/volume] in Serum or Plasma 0.7 mg/dL 0.2-1 .2 Bilirubin, Total [facility] ([facility]) Aspartate aminotransferase [Enzymatic activity/volume] in Serum or Plasma 103 U/L 10-30 Above high normal Ast [facility] ([facility]) Alkaline phosphatase [Enzymatic activity/volume] in Serum or Plasma 115 U/L 31-125 Alkaline Phosphatase [facility] ([facility]) Alanine aminotransferase [Enzymatic activity/volume] in Seru m or Plasma 116 U/L 6-29 Above high normal Alt [facility] ([facility]) ID Date Data Source [id number] 09/27/2020 12:00:00 AM EDT [place] ([facility]) Name Value Range Interpretation Code Description Data Marian rce(s) Supporting Document(s) Lipase [Enzymatic activity/volume] in Serum or Plasma 20 U/L 7-60 Lipase [facility] ([facility]) ID Date Data Source [id number] 09/27/2020 12:00:00 AM EDT [facility] ([facility]) Name Value Range Interpretation Code Description Data Marian rce(s) Supporting Document(s) Glucose [Mass/volume] in Serum or Plasma 379 mg/dL 65-99 Above high normal Glucose [facility] ([facility]) Urea nitrogen [Mass/volume] in Serum or Plasma 9 mg/dL 7-25 Urea Nitrogen (BUN) [facility] ([facility]) Creatinine [Mass/volume] in Serum or Plasma 0.57 mg/dL 0.50-1.10 Creatinine [facility] ([facility]) Glomerular filtration rate/1.73 sq M.pre dicted among non-blacks [Volume Rate/Area] in Serum, Plasma or Blood by Creatinine-based formula (CKD-EPI) 114 mL/min/1.73m2 > or = 60 eGFR Non-afr. Israeli TONEY ([facility]) Glomerular filtration rate/1.73 sq M.pre dicted among blacks [Volume Rate/Area] in Serum, Plasma or Blood by Creatinine-based formula (CKD-EPI) 133 mL/min/1.73m2 > or = 60 eGFR [facility] ([facility]) Sodium [Moles/volume] in Serum or Plasma 135 mmol/L 135-146 Sodium [facility] ([facility]) Potassium [Moles/volume] in Serum or Plasma 3.9 mmol/L 3.5-5.3 Potassium [facility] ([facility]) Urea nitrogen/Creatinine [Mass Ratio] in Serum or Plasma not applic able 6-22 BUN/creatinine Ratio [facility] ([facility]) Chloride [Moles/volume] in Serum or Plasma 98 mmol/L 98-110 Chloride [place] ([facility]) Calcium [Mass/volume] in Serum or Plasma 8.9 mg/dL 8.6-10.2 Calcium [place] ([facility]) Carbon dioxide, total [Moles/volume] in Serum or Plasma 26 mmol/L 20-32 Carbon Dioxide [place] ([facility]) Protein [Mass/volume] in Serum or Plasma 6.4 g/dL 6.1-8.1 Protein, Total [facility]) Albumin [Mass/volume] in Serum or Plasma 3.9 g/dL 3.6-5.1 Albumin [facility]) Globulin [Mass/volume] in Serum by calculation 2.5 g/dL_(calc) 1.9- 3.7 Globulin [facility]) Bilirubin.total [Mass/volume] in Serum or Plasma 0.7 mg/dL 0.2-1 .2 Bilirubin, Total [facility]) Albumin/Globulin [Mass Ratio] in Serum or Plasma 1.6 (calc) 1.0-2 .5 [facility] Alkaline phosphatase [Enzymatic activity/volume] in Serum or Plasma 115 U/L 31-125 Alkaline Phosphatase [place] ([facility]) Aspartate aminotransferase [Enzymatic activity/volume] in Serum or Plasma 103 U/L 10-30 Above high normal Ast [facility] ([facility]) Alanine aminotransferase [Enzymatic activity/volume] in Seru m or Plasma 116 U/L 6-29 Above high normal Alt [facility] ([facility]) ID Date Data Source [id number] 09/27/2020 12:00:00 AM EDT [facility] ([facility]) Name Value Range Interpretation Code Description Data Marian rce(s) Supporting Document(s) Lipase [Enzymatic activity/volume] in Serum or Plasma 20 U/L 7-60 Lipase [facility] ([facility]) ID Date Data Source [id number] 09/27/2020 12:00:00 AM EDT [place] ([facility]) Name Value Range Interpretation Code Description Data Marian rce(s) Supporting Document(s) Glucose [Mass/volume] in Serum or Plasma 379 mg/dL 65-99 Above high normal Glucose [facility] ([facility]) Urea nitrogen [Mass/volume] in Serum or Plasma 9 mg/dL 7-25 Urea Nitrogen (BUN) [facility] ([facility]) Creatinine [Mass/volume] in Serum or Plasma 0.57 mg/dL 0.50-1.10 Creatinine TONE[facility] ([facility]) Glomerular filtration rate/1.73 sq M.pre dicted among non-blacks [Volume Rate/Area] in Serum, Plasma or Blood by Creatinine-based formula (CKD-EPI) 114 mL/min/1.73m2 > or = 60 eGFR Non-afr. Israeli TONEY ([facility]) Glomerular filtration rate/1.73 sq M.pre dicted among blacks [Volume Rate/Area] in Serum, Plasma or Blood by Creatinine-based formula (CKD-EPI) 133 mL/min/1.73m2 > or = 60 eGFR TONEY ([facility]) Urea nitrogen/Creatinine [Mass Ratio] in Serum or Plasma not applic able 6-22 BUN/creatinine Ratio TONEY ([facility]) Sodium [Moles/volume] in Serum or Plasma 135 mmol/L 135-146 Sodium TONEY ([facility]) Carbon dioxide, total [Moles/volume] in Serum or Plasma 26 mmol/L 20-32 Carbon Dioxide TONEY ([facility]) Potassium [Moles/volume] in Serum or Plasma 3.9 mmol/L 3.5-5.3 Potassium TONE[facility] ([facility]) Chloride [Moles/volume] in Serum or Plasma 98 mmol/L 98-110 Chloride [facility]ONE[facility] ([facility]) Protein [Mass/volume] in Serum or Plasma 6.4 g/dL 6.1-8.1 Protein, Total TONEY ([facility]) Calcium [Mass/volume] in Serum or Plasma 8.9 mg/dL 8.6-10.2 Calcium TONEY ([facility]) Albumin/Globulin [Mass Ratio] in Serum or Plasma 1.6 (calc) 1.0-2 .5 Albumin/globulin Ratio TONEY ([facility]) Globulin [Mass/volume] in Serum by calculation 2.5 g/dL_(calc) 1.9- 3.7 Globulin TONE[facility] ([facility]) Albumin [Mass/volume] in Serum or Plasma 3.9 g/dL 3.6-5.1 Albumin TONEY ([facility]) Alkaline phosphatase [Enzymatic activity/volume] in Serum or Plasma 115 U/L 31-125 Alkaline Phosphatase TONEY ([facility]) Bilirubin.total [Mass/volume] in Serum or Plasma 0.7 mg/dL 0.2-1 .2 Bilirubin, Total TONEY ([facility]) Aspartate aminotransferase [Enzymatic activity/volume] in Serum or Plasma 103 U/L 10-30 Above high normal Ast TONEY ([facility]) Alanine aminotransferase [Enzymatic activity/volume] in Seru m or Plasma 116 U/L 6-29 Above high normal Alt TONEY ([facility]) ID Date Data Source [id number] 09/27/2020 12:00:00 AM EDT TONEY ([facility]) Name Value Range Interpretation Code Description Data Marian rce(s) Supporting Document(s) Lipase [Enzymatic activity/volume] in Serum or Plasma 20 U/L 7-60 Lipase [place] ([facility]) ID Date Data Source [id number] 09/27/2020 12:00:00 AM EDT [facility]ONE[facility] ([facility]) Name Value Range Interpretation Code Description Data Marian rce(s) Supporting Document(s) Glucose [Mass/volume] in Serum or Plasma 379 mg/dL 65-99 Above high normal Glucose TONEY ([facility]) Urea nitrogen [Mass/volume] in Serum or Plasma 9 mg/dL 7-25 Urea Nitrogen (BUN) [facility]ONE[facility] ([facility]) Glomerular filtration rate/1.73 sq M.pre dicted among blacks [Volume Rate/Area] in Serum, Plasma or Blood by Creatinine-based formula (CKD-EPI) 133 mL/min/1.73m2 > or = 60 eGFR TONEY ([facility]) Glomerular filtration rate/1.73 sq M.pre dicted among non-blacks [Volume Rate/Area] in Serum, Plasma or Blood by Creatinine-based formula (CKD-EPI) 114 mL/min/1.73m2 > or = 60 eGFR Non-afr. Israeli TONEY ([facility]) Creatinine [Mass/volume] in Serum or Plasma 0.57 mg/dL 0.50-1.10 Creatinine [facility]ONE[facility] ([facility]) Urea nitrogen/Creatinine [Mass Ratio] in Serum or Plasma not applic able 6-22 BUN/creatinine Ratio TONE[facility] ([facility]) Potassium [Moles/volume] in Serum or Plasma 3.9 mmol/L 3.5-5.3 Potassium [facility] ([facility]) Sodium [Moles/volume] in Serum or Plasma 135 mmol/L 135-146 Sodium TONE[facility] ([facility]) Calcium [Mass/volume] in Serum or Plasma 8.9 mg/dL 8.6-10.2 [facility] Carbon dioxide, total [Moles/volume] in Serum or Plasma 26 mmol/L 20-32 [facility] Chloride [Moles/volume] in Serum or Plasma 98 mmol/L 98-110 Chloride [place] ([facility]) Globulin [Mass/volume] in Serum by calculation 2.5 g/dL_(calc) 1.9- 3.7 Globulin [place] ([facility]) Protein [Mass/volume] in Serum or Plasma 6.4 g/dL 6.1-8.1 Protein, Total TONE[facility] ([facility]) Albumin [Mass/volume] in Serum or Plasma 3.9 g/dL 3.6-5.1 Albumin [facility] ([facility]) Albumin/Globulin [Mass Ratio] in Serum or Plasma 1.6 (calc) 1.0-2 .5 Albumin/globulin Ratio TONEY ([facility]) Alkaline phosphatase [Enzymatic activity/volume] in Serum or Plasma 115 U/L 31-125 Alkaline Phosphatase TONEY ([facility]) Bilirubin.total [Mass/volume] in Serum or Plasma 0.7 mg/dL 0.2-1 .2 Bilirubin, Total [facility] ([facility]) Aspartate aminotransferase [Enzymatic activity/volume] in Serum or Plasma 103 U/L 10-30 Above high normal Ast TONEY ([facility]) Alanine aminotransferase [Enzymatic activity/volume] in Seru m or Plasma 116 U/L 6-29 Above high normal Alt [facility]ONEY ([facility]) ID Date Data Source [id number] 09/22/2020 01:25:00 PM EDT [facility]) Name Value Range Interpretation Code Description Data Marian rce(s) Supporting Document(s) sars-cov-2 negative negative Sars-cov-2 [facility]) ID Date Data Source [id number] 09/22/2020 01:25:00 PM EDT [facility]) Name Value Range Interpretation Code Description Data Marian rce(s) Supporting Document(s) sars-cov-2 negative negative Sars-cov-2 [facility]) ID Date Data Source [id number] 09/22/2020 01:25:00 PM EDT [facility]) Name Value Range Interpretation Code Description Data Marian rce(s) Supporting Document(s) sars-cov-2 negative negative Sars-cov-2 [place] ([facility]) ID Date Data Source [id number] 09/22/2020 01:25:00 PM EDT [place] ([facility]) Name Value Range Interpretation Code Description Data Marian rce(s) Supporting Document(s) sars-cov-2 negative negative Sars-cov-2 [place] ([facility]) ID Date Data Source [id number] 09/22/2020 01:25:00 PM EDT [facility]) Name Value Range Interpretation Code Description Data Marian rce(s) Supporting Document(s) sars-cov-2 negative negative Sars-cov-2 [facility]) ID Date Data Source [id number] 09/22/2020 01:25:00 PM EDT [facility]) Name Value Range Interpretation Code Description Data Marian rce(s) Supporting Document(s) sars-cov-2 negative negative Sars-cov-2 [facility]) ID Date Data Source [id number] 09/22/2020 01:25:00 PM EDT [facility]) Name Value Range Interpretation Code Description Data Marian rce(s) Supporting Document(s) sars-cov-2 negative negative Sars-cov-2 [facility]) ID Date Data Source [id number] 09/22/2020 01:25:00 PM EDT [facility]) Name Value Range Interpretation Code Description Data Marian rce(s) Supporting Document(s) sars-cov-2 negative negative Sars-cov-2 [facility]) ID Date Data Source [id number] 09/22/2020 01:25:00 PM EDT [place] ([facility]) Name Value Range Interpretation Code Description Data Marian rce(s) Supporting Document(s) sars-cov-2 negative negative Sars-cov-2 [place] ([facility]) ID Date Data Source [id number] 09/22/2020 01:25:00 PM EDT [facility] ([facility]) Name Value Range Interpretation Code Description Data Marian rce(s) Supporting Document(s) sars-cov-2 negative negative Sars-cov-2 [place] ([facility]) ID Date Data Source [id number] 09/22/2020 01:22:00 PM EDT [facility] Name Value Range Interpretation Code Description Data Marian rce(s) Supporting Document(s) SARS coronavirus 2 RdRp gene [Presence] in Respiratory specimen by TANVI with probe detection Not detected [facility] This lab was ordered by [facility] and reported by [facility]. ID Date Data Source [id number] 09/20/2020 11:39:00 AM EDT [facility]) Name Value Range Interpretation Code Description Data Marian rce(s) Supporting Document(s) istat B-HCG < 5.0 Istat B-HCG [place] ([facility]) ID Date Data Source [id number] 09/20/2020 11:39:00 AM EDT [place] ([facility]) Name Value Range Interpretation Code Description Data Marian rce(s) Supporting Document(s) istat B-HCG < 5.0 Istat B-HCG [place] ([facility]) ID Date Data Source [id number] 09/20/2020 11:39:00 AM EDT [facility]) Name Value Range Interpretation Code Description Data Marian rce(s) Supporting Document(s) istat B-HCG < 5.0 Istat B-HCG [place] ([facility]) ID Date Data Source [id number] 09/20/2020 11:39:00 AM EDT [place] ([facility]) Name Value Range Interpretation Code Description Data Marian rce(s) Supporting Document(s) istat B-HCG < 5.0 Istat B-HCG [place] ([facility]) ID Date Data Source [id number] 09/20/2020 11:39:00 AM EDT [facility]) Name Value Range Interpretation Code Description Data Mraian rce(s) Supporting Document(s) istat B-HCG < 5.0 Istat B-HCG [place] ([facility]) ID Date Data Source [id number] 09/20/2020 11:39:00 AM EDT [facility]) Name Value Range Interpretation Code Description Data Marian rce(s) Supporting Document(s) istat B-HCG < 5.0 Istat B-HCG [place] ([facility]) ID Date Data Source [id number] 09/20/2020 11:39:00 AM EDT [facility]) Name Value Range Interpretation Code Description Data Marian rce(s) Supporting Document(s) istat B-HCG < 5.0 Istat B-HCG [place] ([facility]) ID Date Data Source [id number] 09/20/2020 11:39:00 AM EDT [facility]) Name Value Range Interpretation Code Description Data Marian rce(s) Supporting Document(s) istat B-HCG < 5.0 Istat B-HCG [facility] ([facility]) ID Date Data Source [id number] 09/20/2020 11:39:00 AM EDT [facility] ([facility]) Name Value Range Interpretation Code Description Data Marian rce(s) Supporting Document(s) istat B-HCG < 5.0 Istat B-HCG [facility] ([facility]) ID Date Data Source [id number] 09/20/2020 11:39:00 AM EDT [facility] ([facility]) Name Value Range Interpretation Code Description Data Marian rce(s) Supporting Document(s) istat B-HCG < 5.0 Istat B-HCG [facility] ([facility]) ID Date Data Source [id number] 09/20/2020 11:39:00 AM EDT [facility] ([facility]) Name Value Range Interpretation Code Description Data Marian rce(s) Supporting Document(s) istat B-HCG < 5.0 Istat B-HCG [facility] ([facility]) ID Date Data Source [id number] 09/20/2020 11:37:00 AM EDT [place] ([facility]) Name Value Range Interpretation Code Description Data Marian rce(s) Supporting Document(s) istat HCT 43.0 % 38.0-51.0 Istat HCT [facility] ([facility]) istat Ca++ 4.6 mg/dL 4.5-5.3 Istat Ca++ [facility] ([facility]) istat sodium 137 mEq/L 136-145 Istat Sodium [place]ENY ([facility]) istat potassium 4.2 mEq/L 3.5-5.1 Istat Potassium ATHE NA ([facility]) istat glucose 339 mg/dL 70-105 Above high normal Istat Glucose A THENA ([facility]) istat BUN 10 mg/dL 8-26 Istat BUN [facility] ([facility]) istat CO2 26.0 mm/L 23.0-27.0 Istat CO2 [facility] ([facility]) istat chloride 99 mEq/L 98-109 Istat Chloride [facility] ([facility]) istat creatinine 0.5 mg/dL 0.6-1.3 Below low normal Istat Creatin ine [facility] ([facility]) ID Date Data Source [id number] 09/20/2020 11:37:00 AM EDT [place] ([facility]) Name Value Range Interpretation Code Description Data Marian rce(s) Supporting Document(s) istat glucose 339 mg/dL 70-105 Above high normal Istat Glucose A THENA ([facility]) istat HCT 43.0 % 38.0-51.0 Istat HCT [facility] ([facility]) istat sodium 137 mEq/L 136-145 Istat Sodium [facility] ([facility]) istat potassium 4.2 mEq/L 3.5-5.1 Istat Potassium ATHE NA ([facility]) istat chloride 99 mEq/L 98-109 Istat Chloride [facility] ([facility]) istat Ca++ 4.6 mg/dL 4.5-5.3 Istat Ca++ [facility] ([facility]) istat creatinine 0.5 mg/dL 0.6-1.3 Below low normal Istat Creatin ine [facility] ([facility]) istat CO2 26.0 mm/L 23.0-27.0 Istat CO2 [facility] ([facility]) istat BUN 10 mg/dL 8-26 Istat BUN [facility] ([facility]) ID Date Data Source [id number] 09/20/2020 11:37:00 AM EDT [facility] ([facility]) Name Value Range Interpretation Code Description Data Marian rce(s) Supporting Document(s) istat glucose 339 mg/dL 70-105 Above high normal Istat Glucose A THENA ([facility]) istat HCT 43.0 % 38.0-51.0 Istat HCT [facility] ([facility]) istat sodium 137 mEq/L 136-145 Istat Sodium [facility] ([facility]) istat Ca++ 4.6 mg/dL 4.5-5.3 Istat Ca++ [facility] ([facility]) istat potassium 4.2 mEq/L 3.5-5.1 Istat Potassium ATHE NA ([facility]) istat chloride 99 mEq/L 98-109 Istat Chloride [facility] ([facility]) istat CO2 26.0 mm/L 23.0-27.0 Istat CO2 [facility] ([facility]) istat BUN 10 mg/dL 8-26 Istat BUN [facility] ([facility]) istat creatinine 0.5 mg/dL 0.6-1.3 Below low normal Istat Creatin ine [facility] ([facility]) ID Date Data Source [id number] 09/20/2020 11:37:00 AM EDT [place] ([facility]) Name Value Range Interpretation Code Description Data Marian rce(s) Supporting Document(s) istat HCT 43.0 % 38.0-51.0 Istat HCT [place] ([facility]) istat glucose 339 mg/dL 70-105 Above high normal Istat Glucose A THENA ([facility]) istat sodium 137 mEq/L 136-145 Istat Sodium [facility] ([facility]) istat potassium 4.2 mEq/L 3.5-5.1 Istat Potassium ATHE NA ([facility]) istat Ca++ 4.6 mg/dL 4.5-5.3 Istat Ca++ [place] ([facility]) istat chloride 99 mEq/L 98-109 Istat Chloride [facility] ([facility]) istat BUN 10 mg/dL 8-26 Istat BUN [facility] ([facility]) istat CO2 26.0 mm/L 23.0-27.0 Istat CO2 [facility] ([facility]) istat creatinine 0.5 mg/dL 0.6-1.3 Below low normal Istat Creatin ine [facility] ([facility]) ID Date Data Source [id number] 09/20/2020 11:37:00 AM EDT [place] ([facility]) Name Value Range Interpretation Code Description Data Marian rce(s) Supporting Document(s) istat glucose 339 mg/dL 70-105 Above high normal Istat Glucose A THENA ([facility]) istat HCT 43.0 % 38.0-51.0 Istat HCT [place] ([facility]) istat sodium 137 mEq/L 136-145 Istat Sodium [facility] ([facility]) istat potassium 4.2 mEq/L 3.5-5.1 Istat Potassium ATHE NA ([facility]) istat Ca++ 4.6 mg/dL 4.5-5.3 Istat Ca++ [facility] ([facility]) istat creatinine 0.5 mg/dL 0.6-1.3 Below low normal Istat Creatin ine [facility] ([facility]) istat BUN 10 mg/dL 8-26 Istat BUN [facility] ([facility]) istat chloride 99 mEq/L 98-109 Istat Chloride [facility] ([facility]) istat CO2 26.0 mm/L 23.0-27.0 Istat CO2 [facility] ([facility]) ID Date Data Source [id number] 09/20/2020 11:37:00 AM [facility] Name Value Range Interpretation Code Description Data Marian rce(s) Supporting Document(s) istat HCT 43.0 % 38.0-51.0 Istat HCT [facility] ([facility]) istat sodium 137 mEq/L 136-145 Istat Sodium [facility] ([facility]) istat potassium 4.2 mEq/L 3.5-5.1 Istat Potassium ATHE NA ([facility]) istat glucose 339 mg/dL 70-105 Above high normal Istat Glucose A [facility] ([facility]) istat BUN 10 mg/dL 8-26 Istat BUN [place] ([facility]) istat Ca++ 4.6 mg/dL 4.5-5.3 Istat Ca++ [facility] ([facility]) istat chloride 99 mEq/L 98-109 Istat Chloride [facility] ([facility]) istat CO2 26.0 mm/L 23.0-27.0 Istat CO2 [facility] ([facility]) istat creatinine 0.5 mg/dL 0.6-1.3 Below low normal Istat Creatin ine [facility] ([facility]) ID Date Data Source [id number] 09/20/2020 11:37:00 AM EDT [place] ([facility]) Name Value Range Interpretation Code Description Data Marian rce(s) Supporting Document(s) istat HCT 43.0 % 38.0-51.0 Istat HCT [facility] ([facility]) istat glucose 339 mg/dL 70-105 Above high normal Istat Glucose A [facility] ([facility]) istat sodium 137 mEq/L 136-145 Istat Sodium [facility] ([facility]) istat potassium 4.2 mEq/L 3.5-5.1 Istat Potassium ATHE NA ([facility]) istat Ca++ 4.6 mg/dL 4.5-5.3 Istat Ca++ [facility] ([facility]) istat CO2 26.0 mm/L 23.0-27.0 Istat CO2 [facility] ([facility]) istat chloride 99 mEq/L 98-109 Istat Chloride [facility] ([facility]) istat creatinine 0.5 mg/dL 0.6-1.3 Below low normal Istat Creatin ine [facility] ([facility]) istat BUN 10 mg/dL 8-26 Istat BUN [facility] ([facility]) ID Date Data Source [id number] 09/20/2020 11:37:00 AM [facility] Name Value Range Interpretation Code Description Data Marian rce(s) Supporting Document(s) istat HCT 43.0 % 38.0-51.0 Istat HCT [facility] ([facility]) istat glucose 339 mg/dL 70-105 Above high normal Istat Glucose A THENA ([facility]) istat sodium 137 mEq/L 136-145 Istat Sodium [facility] ([facility]) istat potassium 4.2 mEq/L 3.5-5.1 Istat Potassium ATHE NA ([facility]) istat chloride 99 mEq/L 98-109 Istat Chloride [facility] ([facility]) istat Ca++ 4.6 mg/dL 4.5-5.3 Istat Ca++ [facility] ([facility]) istat creatinine 0.5 mg/dL 0.6-1.3 Below low normal Istat Creatin ine [facility] ([facility]) istat BUN 10 mg/dL 8-26 Istat BUN [facility] ([facility]) istat CO2 26.0 mm/L 23.0-27.0 Istat CO2 [facility] ([facility]) ID Date Data Source [id number] 09/20/2020 11:37:00 AM [facility] Name Value Range Interpretation Code Description Data Marian rce(s) Supporting Document(s) istat HCT 43.0 % 38.0-51.0 Istat HCT [place] ([facility]) istat glucose 339 mg/dL 70-105 Above high normal Istat Glucose A THENA ([facility]) istat sodium 137 mEq/L 136-145 Istat Sodium [facility] ([facility]) istat potassium 4.2 mEq/L 3.5-5.1 Istat Potassium ATHE NA ([facility]) istat Ca++ 4.6 mg/dL 4.5-5.3 Istat Ca++ [place] ([facility]) istat chloride 99 mEq/L 98-109 Istat Chloride [facility] ([facility]) istat CO2 26.0 mm/L 23.0-27.0 Istat CO2 [place] ([facility]) istat BUN 10 mg/dL 8-26 Istat BUN [place] ([facility]) istat creatinine 0.5 mg/dL 0.6-1.3 Below low normal Istat Creatin ine [facility] ([facility]) ID Date Data Source [id number] 09/20/2020 11:37:00 AM EDT [place] ([facility]) Name Value Range Interpretation Code Description Data Marian rce(s) Supporting Document(s) istat glucose 339 mg/dL 70-105 Above high normal Istat Glucose A THEN ([facility]) istat HCT 43.0 % 38.0-51.0 Istat HCT [place] ([facility]) istat potassium 4.2 mEq/L 3.5-5.1 Istat Potassium ATHE NA ([facility]) istat Ca++ 4.6 mg/dL 4.5-5.3 Istat Ca++ [place] ([facility]) istat sodium 137 mEq/L 136-145 Istat Sodium [facility] ([facility]) istat CO2 26.0 mm/L 23.0-27.0 Istat CO2 [place] ([facility]) istat chloride 99 mEq/L 98-109 Istat Chloride [place] ([facility]) istat BUN 10 mg/dL 8-26 Istat BUN [place] ([facility]) istat creatinine 0.5 mg/dL 0.6-1.3 Below low normal Istat Creatin ine [facility] ([facility]) ID Date Data Source [id number] 09/20/2020 11:37:00 AM EDT [place] ([facility]) Name Value Range Interpretation Code Description Data Marian rce(s) Supporting Document(s) istat glucose 339 mg/dL 70-105 Above high normal Istat Glucose A THENA ([facility]) istat HCT 43.0 % 38.0-51.0 Istat HCT [place] ([facility]) istat sodium 137 mEq/L 136-145 Istat Sodium [place] ([facility]) istat potassium 4.2 mEq/L 3.5-5.1 Istat Potassium ATHE NA ([facility]) istat Ca++ 4.6 mg/dL 4.5-5.3 Istat Ca++ [place] ([facility]) istat chloride 99 mEq/L 98-109 Istat Chloride [place] ([facility]) istat CO2 26.0 mm/L 23.0-27.0 Istat CO2 [place] ([facility]) istat creatinine 0.5 mg/dL 0.6-1.3 Below low normal Istat Creatin ine [place] ([facility]) istat BUN 10 mg/dL 8-26 Istat BUN [facility] ([facility]) ID Date Data Source [id number] 09/07/2020 08:23:00 AM EDT [facility] ([facility]) Name Value Range Interpretation Code Description Data Marian rce(s) Supporting Document(s) Creatinine For GFR 0.54 mg/dL 0.55-1.30 [facility] ([facility]) Glomerular Filtration Rate Laboratory test result [facility] ([facility]) <content>Units are mL/min/1.73 m2</content>
<content></content>
<content>Chronic Kidney Disease Staging per NKF:</content>
<content></content>
<content>Stage I & II GFR >=60 Normal to Mildly Decreased</content>
<content>Stage III GFR 30- 59 Moderately Decreased</content>
<content>Stage IV GFR 15-29 Severely Decreased</content>
<content>Stage V GFR <15 Very Little GFR Left</content>
<content>ESRD GFR <15 on [employer]</content>
<content></content> ID Date Data Source [id number] 09/07/2020 08:23:00 AM EDT [facility] ([facility]) Name Value Range Interpretation Code Description Data Marian rce(s) Supporting Document(s) Urea nitrogen [Mass/volume] in Serum or Plasma 14 mg/dL 7-18 [facility] ([facility]) ID Date Data Source [id number] 06/30/2020 11:11:00 AM EDT [facility]) Name Value Range Interpretation Code Description Data Marian rce(s) Supporting Document(s) Hemoglobin A1c/Hemoglobin.total in Blood 11.2 % Hemoglobin a1C [facility]) estimated average glucose 275 mg/dL 60-110 Above high norm al Estimated Average Glucose [facility]) ID Date Data Source [id number] 06/30/2020 11:11:00 AM EDT [facility]) Name Value Range Interpretation Code Description Data Marian rce(s) Supporting Document(s) triglycerides level 563 mg/dL <150 Above high normal Triglycer ides Level [facility]ONEY ([facility]) cholesterol risk ratio <5 Above high normal [facility] cholesterol level 165 mg/dL <200 [facility] non-HDL-C 139 mg/dL Non-hdl-c [facility] ([facility]) HDL cholesterol 26 mg/dL >40 Below low normal HDL Cholestero l [facility] ([facility]) ID Date Data Source [id number] 06/30/2020 11:11:00 AM EDT [facility] ([facility]) Name Value Range Interpretation Code Description Data Marian rce(s) Supporting Document(s) glucose, fasting 341 mg/dL 70-100 Above high normal Glucose, Fas ting [facility]ONE[facility] ([facility]) sodium level 133 mEq/L 136-145 Below low normal Sodium Level ATHE NA ([facility]) glomerular filtration rate > 60.0 >58 Glomerula r Filtration Rate [facility] ([facility]) creatinine for GFR 0.58 mg/dL 0.55-1.30 Creatinine for GF R TONE[facility] ([facility]) blood urea nitrogen 10 mg/dL 7-18 Blood Urea Nitro gen [facility] ([facility]) carbon dioxide level 26 mEq/L 21-32 Carbon Dioxide Level [facility]ONE[facility] ([facility]) chloride level 100 mEq/L 98-107 Chloride Level [facility] ([facility]) potassium serum 4.1 mEq/L 3.5-5.1 Potassium Serum ATHE NA ([facility]) anion gap 7 mEq/L 8-16 Below low normal Anion Gap [facility] ( [facility]) AST/SGOT 33 U/L 7-37 AST/SGOT [facility] ([facility]) calcium level 8.7 mg/dL 8.5-10.1 Calcium Level TONEY ( [facility]) alkaline phosphatase 89 U/L 45-117 Alkaline Phosph atase [facility] ([facility]) ALT/SGPT 52 U/L 12-78 ALT/SGPT [facility] ([facility]) total protein 6.5 gm/dL 6.4-8.2 Total Protein [facility]ONE[facility] ( [facility]) bilirubin,total 0.4 mg/dL 0.2-1.0 Bilirubin,total ATHE NA ([facility]) albumin 3.5 gm/dL 3.2-5.2 Albumin TONEY ([facility]) albumin/globulin ratio 1.2-2.2 Albumin/globu claudia Ratio [facility]ONE[facility] ([facility]) ID Date Data Source [id number] 06/30/2020 11:11:00 AM EDT [facility] ([facility]) Name Value Range Interpretation Code Description Data Marian rce(s) Supporting Document(s) white blood count 4.6 10 4.0-10.0 White Blood Count [facility] ([facility]) hemoglobin 12.9 g/dL 12.0-15.5 Hemoglobin [facility] ([facility]) red blood count 5.09 10 4.00-5.40 Red Blood Count ATHE NA ([facility]) mean corpuscular hemoglobin 25.3 pg 27.0-33.0 Below low nor mal Mean Corpuscular Hemoglobin [facility]ONEY ([facility]) mean corpuscular volume 79.4 fL 80.0-96.0 Below low normal Mean Corpuscular Volume [facility] ([facility]) hematocrit 40.4 % 36.0-47.0 Hematocrit TNOEY ([facility]) red cell distribution width 14.3 % 11.5-14.5 Red Cell Distribution Width [facility] ([facility]) mean corpuscular HGB conc 31.9 g/dL 32.0-36.5 Below low sudhir l Mean Corpuscular HGB Conc [facility] ([facility]) platelet count, automated 146 10 150-450 Below low sudhir l Platelet Count, Automated [facility] ([facility]) neutrophils % 52.6 % 36.0-66.0 Neutrophils % [facility] ( [facility]) eos % 2.8 % 0.0-3.0 Eos % [facility] ([facility]) mono % 6.8 % 2.0-8.0 Sharp % [facility] ([facility]) lymph % 36.0 % 24.0-44.0 Lymph % [facility] ([facility]) baso % 0.9 % 0.0-1.0 Baso % [facility] ([facility]) nucleated red blood cell % 0.0 % 0-0 Nucleated Red Blood Cell % [facility] ([facility]) immature granulocyte % 0.9 % 0-3.0 Immature Gran ulocyte % [facility] ([facility]) neutrophils # 2.4 10 1.5-8.5 Neutrophils # [facility]ONE[facility] ( [facility]) eos # 0.1 10 0.0-0.5 Eos # [facility] ([facility]) mono # 0.3 10 0.0-0.8 Sharp # [facility] ([facility]) lymph # 1.7 10 1.5-5.0 Lymph # [facility] ([facility]) baso # 0.0 10 0.0-0.2 Baso # [facility] ([facility]) ID Date Data Source [id number] 06/30/2020 11:11:00 AM EDT [facility] ([facility]) Name Value Range Interpretation Code Description Data Marian rce(s) Supporting Document(s) estimated average glucose 275 mg/dL 60-110 Above high norm al Estimated Average Glucose [facility] ([facility]) Hemoglobin A1c/Hemoglobin.total in Blood 11.2 % Hemoglobin a1C [facility] ([facility]) ID Date Data Source [id number] 06/30/2020 11:11:00 AM EDT [facility]) Name Value Range Interpretation Code Description Data Marian rce(s) Supporting Document(s) cholesterol level 165 mg/dL <200 Cholesterol Level [facility]ONE[facility] ([facility]) HDL cholesterol 26 mg/dL >40 Below low normal HDL Cholestero l [facility] ([facility]) triglycerides level 563 mg/dL <150 Above high normal Triglycer ides Level [facility]ONEY ([facility]) cholesterol risk ratio <5 Above high normal Choles terol Risk Ratio [facility] ([facility]) non-HDL-C 139 mg/dL Non-hdl-c [place] ([facility]) ID Date Data Source [id number] 06/30/2020 11:11:00 AM EDT [facility]) Name Value Range Interpretation Code Description Data Marian rce(s) Supporting Document(s) blood urea nitrogen 10 mg/dL 7-18 Blood Urea Nitro gen [facility]ONE[facility] ([facility]) glucose, fasting 341 mg/dL 70-100 Above high normal Glucose, Fas ting [facility]ONEY ([facility]) glomerular filtration rate > 60.0 >58 Glomerula r Filtration Rate [facility] ([facility]) creatinine for GFR 0.58 mg/dL 0.55-1.30 Creatinine for GF R [facility] ([facility]) chloride level 100 mEq/L 98-107 Chloride Level [facility] ([facility]) sodium level 133 mEq/L 136-145 Below low normal Sodium Level ATHE ([facility]) potassium serum 4.1 mEq/L 3.5-5.1 Potassium Serum [facility] ([facility]) anion gap 7 mEq/L 8-16 Below low normal Anion Gap [facility] ( [facility]) carbon dioxide level 26 mEq/L 21-32 Carbon Dioxide Level [facility] ([facility]) calcium level 8.7 mg/dL 8.5-10.1 Calcium Level [facility] ( [facility]) AST/SGOT 33 U/L 7-37 AST/SGOT [facility] ([facility]) ALT/SGPT 52 U/L 12-78 ALT/SGPT [facility] ([facility]) total protein 6.5 gm/dL 6.4-8.2 Total Protein [facility] ( [facility]) bilirubin,total 0.4 mg/dL 0.2-1.0 Bilirubin,total ATHE ([facility]) alkaline phosphatase 89 U/L 45-117 Alkaline Phosph atase [facility] ([facility]) albumin/globulin ratio 1.2-2.2 Albumin/globu claudia Ratio [facility] ([facility]) albumin 3.5 gm/dL 3.2-5.2 Albumin [facility] ([facility]) ID Date Data Source [id number] 06/30/2020 11:11:00 AM EDT [facility] ([facility]) Name Value Range Interpretation Code Description Data Marian rce(s) Supporting Document(s) red blood count 5.09 10 4.00-5.40 Red Blood Count ATHE NA ([facility]) white blood count 4.6 10 4.0-10.0 White Blood Count [facility] ([facility]) mean corpuscular volume 79.4 fL 80.0-96.0 Below low normal Mean Corpuscular Volume [facility] ([facility]) hemoglobin 12.9 g/dL 12.0-15.5 Hemoglobin [facility] ([facility]) hematocrit 40.4 % 36.0-47.0 Hematocrit [facility] ([facility]) mean corpuscular HGB conc 31.9 g/dL 32.0-36.5 Below low sudhir l Mean Corpuscular HGB Conc [facility] ([facility]) mean corpuscular hemoglobin 25.3 pg 27.0-33.0 Below low nor mal Mean Corpuscular Hemoglobin [facility] ([facility]) red cell distribution width 14.3 % 11.5-14.5 Red Cell Distribution Width [facility] ([facility]) platelet count, automated 146 10 150-450 Below low sudhir l Platelet Count, Automated [facility] ([facility]) neutrophils % 52.6 % 36.0-66.0 Neutrophils % [facility] ( [facility]) lymph % 36.0 % 24.0-44.0 Lymph % [facility] ([facility]) mono % 6.8 % 2.0-8.0 Sharp % [facility] ([facility]) baso % 0.9 % 0.0-1.0 Baso % [facility] ([facility]) eos % 2.8 % 0.0-3.0 Eos % [facility] ([facility]) immature granulocyte % 0.9 % 0-3.0 Immature Gran ulocyte % [facility] ([facility]) nucleated red blood cell % 0.0 % 0-0 Nucleated Red Blood Cell % [facility] ([facility]) neutrophils # 2.4 10 1.5-8.5 Neutrophils # [facility]ONE[facility] ( [facility]) lymph # 1.7 10 1.5-5.0 Lymph # [facility] ([facility]) mono # 0.3 10 0.0-0.8 Sharp # [facility] ([facility]) eos # 0.1 10 0.0-0.5 Eos # [facility] ([facility]) baso # 0.0 10 0.0-0.2 Baso # [facility] ([facility]) ID Date Data Source [id number] 06/30/2020 11:11:00 AM EDT [facility] ([facility]) Name Value Range Interpretation Code Description Data Marian rce(s) Supporting Document(s) Hemoglobin A1c/Hemoglobin.total in Blood 11.2 % Hemoglobin a1C [facility] ([facility]) estimated average glucose 275 mg/dL 60-110 Above high norm al Estimated Average Glucose [place] ([facility]) ID Date Data Source [id number] 06/30/2020 11:11:00 AM EDT [facility] ([facility]) Name Value Range Interpretation Code Description Data Marian rce(s) Supporting Document(s) Hemoglobin A1c/Hemoglobin.total in Blood 11.2 % Hemoglobin a1C [facility] ([facility]) estimated average glucose 275 mg/dL 60-110 Above high norm al Estimated Average Glucose [facility] ([facility]) ID Date Data Source [id number] 06/30/2020 11:11:00 AM EDT [facility] ([facility]) Name Value Range Interpretation Code Description Data Marian rce(s) Supporting Document(s) cholesterol level 165 mg/dL <200 Cholesterol Level [facility]ONE[facility] ([facility]) triglycerides level 563 mg/dL <150 Above high normal Triglycer ides Level [facility]ONE[facility] ([facility]) non-HDL-C 139 mg/dL Non-hdl-c [facility] ([facility]) cholesterol risk ratio <5 Above high normal Choles terol Risk Ratio [facility] ([facility]) HDL cholesterol 26 mg/dL >40 Below low normal HDL Cholestero l [facility] ([facility]) ID Date Data Source [id number] 06/30/2020 11:11:00 AM EDT [facility] ([facility]) Name Value Range Interpretation Code Description Data Marian rce(s) Supporting Document(s) glucose, fasting 341 mg/dL 70-100 Above high normal Glucose, Fas ting [facility]ONE[facility] ([facility]) blood urea nitrogen 10 mg/dL 7-18 Blood Urea Nitro gen [facility] ([facility]) glomerular filtration rate > 60.0 >58 Glomerula r Filtration Rate [facility] ([facility]) creatinine for GFR 0.58 mg/dL 0.55-1.30 Creatinine for GF R [facility] ([facility]) chloride level 100 mEq/L 98-107 Chloride Level [facility] ([facility]) sodium level 133 mEq/L 136-145 Below low normal Sodium Level ATHE NA ([facility]) potassium serum 4.1 mEq/L 3.5-5.1 Potassium Serum ATHE NA ([facility]) anion gap 7 mEq/L 8-16 Below low normal Anion Gap [facility] ( [facility]) calcium level 8.7 mg/dL 8.5-10.1 Calcium Level [facility] ( [facility]) carbon dioxide level 26 mEq/L 21-32 Carbon Dioxide Level [facility] ([facility]) ALT/SGPT 52 U/L 12-78 ALT/SGPT [facility] ([facility]) AST/SGOT 33 U/L 7-37 AST/SGOT [facility] ([facility]) total protein 6.5 gm/dL 6.4-8.2 Total Protein [facility] ( [facility]) alkaline phosphatase 89 U/L 45-117 Alkaline Phosph atase [facility] ([facility]) albumin 3.5 gm/dL 3.2-5.2 Albumin [facility] ([facility]) bilirubin,total 0.4 mg/dL 0.2-1.0 Bilirubin,total ATHE ([facility]) albumin/globulin ratio 1.2-2.2 Albumin/globu claudia Ratio [facility] ([facility]) ID Date Data Source [id number] 06/30/2020 11:11:00 AM EDT [facility] ([facility]) Name Value Range Interpretation Code Description Data Marian rce(s) Supporting Document(s) white blood count 4.6 10 4.0-10.0 White Blood Count [facility] ([facility]) red blood count 5.09 10 4.00-5.40 Red Blood Count ATHE NA ([facility]) hemoglobin 12.9 g/dL 12.0-15.5 Hemoglobin [facility] ([facility]) hematocrit 40.4 % 36.0-47.0 Hematocrit [facility] ([facility]) mean corpuscular volume 79.4 fL 80.0-96.0 Below low normal Mean Corpuscular Volume [facility] ([facility]) mean corpuscular hemoglobin 25.3 pg 27.0-33.0 Below low nor mal Mean Corpuscular Hemoglobin [facility] ([facility]) mean corpuscular HGB conc 31.9 g/dL 32.0-36.5 Below low sudhir l Mean Corpuscular HGB Conc [facility] ([facility]) neutrophils % 52.6 % 36.0-66.0 Neutrophils % [place] ( [facility]) platelet count, automated 146 10 150-450 Below low sudhir l Platelet Count, Automated [facility] ([facility]) red cell distribution width 14.3 % 11.5-14.5 Red Cell Distribution Width [facility] ([facility]) lymph % 36.0 % 24.0-44.0 Lymph % [facility] ([facility]) mono % 6.8 % 2.0-8.0 Sharp % [facility] ([facility]) eos % 2.8 % 0.0-3.0 Eos % [facility] ([facility]) baso % 0.9 % 0.0-1.0 Baso % [facility] ([facility]) immature granulocyte % 0.9 % 0-3.0 Immature Gran ulocyte % [facility] ([facility]) neutrophils # 2.4 10 1.5-8.5 Neutrophils # [facility]ONE[facility] ( [facility]) nucleated red blood cell % 0.0 % 0-0 Nucleated Red Blood Cell % [facility] ([facility]) mono # 0.3 10 0.0-0.8 Sharp # [facility] ([facility]) lymph # 1.7 10 1.5-5.0 Lymph # [facility] ([facility]) eos # 0.1 10 0.0-0.5 Eos # [facility] ([facility]) baso # 0.0 10 0.0-0.2 Baso # [facility] ([facility]) ID Date Data Source [id number] 06/30/2020 11:11:00 AM EDT [facility] ([facility]) Name Value Range Interpretation Code Description Data Marian rce(s) Supporting Document(s) triglycerides level 563 mg/dL <150 Above high normal Triglycer ides Level [facility] ([facility]) cholesterol level 165 mg/dL <200 Cholesterol Level [facility] ([facility]) non-HDL-C 139 mg/dL Non-hdl-c [facility] ([facility]) cholesterol risk ratio <5 Above high normal Choles terol Risk Ratio [facility] ([facility]) HDL cholesterol 26 mg/dL >40 Below low normal HDL Cholestero l [facility] ([facility]) ID Date Data Source [id number] 06/30/2020 11:11:00 AM EDT [facility] ([facility]) Name Value Range Interpretation Code Description Data Marian rce(s) Supporting Document(s) glucose, fasting 341 mg/dL 70-100 Above high normal Glucose, Fas ting [facility] ([facility]) blood urea nitrogen 10 mg/dL 7-18 Blood Urea Nitro gen [facility] ([facility]) glomerular filtration rate > 60.0 >58 Glomerula r Filtration Rate [facility] ([facility]) creatinine for GFR 0.58 mg/dL 0.55-1.30 Creatinine for GF R [facility] ([facility]) potassium serum 4.1 mEq/L 3.5-5.1 Potassium Serum ATHE NA ([facility]) chloride level 100 mEq/L 98-107 Chloride Level [facility] ([facility]) sodium level 133 mEq/L 136-145 Below low normal Sodium Level ATHE ([facility]) carbon dioxide level 26 mEq/L 21-32 Carbon Dioxide Level [facility] ([facility]) calcium level 8.7 mg/dL 8.5-10.1 Calcium Level [facility] ( [facility]) AST/SGOT 33 U/L 7-37 AST/SGOT [facility] ([facility]) anion gap 7 mEq/L 8-16 Below low normal Anion Gap [facility] ( [facility]) alkaline phosphatase 89 U/L 45-117 Alkaline Phosph atase [facility] ([facility]) bilirubin,total 0.4 mg/dL 0.2-1.0 Bilirubin,total ATHE ([facility]) ALT/SGPT 52 U/L 12-78 ALT/SGPT [facility] ([facility]) total protein 6.5 gm/dL 6.4-8.2 Total Protein [facility] ( [facility]) albumin 3.5 gm/dL 3.2-5.2 Albumin [facility] ([facility]) albumin/globulin ratio 1.2-2.2 Albumin/globu claudia Ratio [facility] ([facility]) ID Date Data Source [id number] 06/30/2020 11:11:00 AM EDT [facility] ([facility]) Name Value Range Interpretation Code Description Data Marian rce(s) Supporting Document(s) white blood count 4.6 10 4.0-10.0 White Blood Count [facility] ([facility]) hemoglobin 12.9 g/dL 12.0-15.5 Hemoglobin [facility] ([facility]) red blood count 5.09 10 4.00-5.40 Red Blood Count ATHE ([facility]) mean corpuscular hemoglobin 25.3 pg 27.0-33.0 Below low nor mal Mean Corpuscular Hemoglobin [facility] ([facility]) hematocrit 40.4 % 36.0-47.0 Hematocrit [facility] ([facility]) mean corpuscular volume 79.4 fL 80.0-96.0 Below low normal Mean Corpuscular Volume [facility] ([facility]) neutrophils % 52.6 % 36.0-66.0 Neutrophils % [facility] ( [facility]) mean corpuscular HGB conc 31.9 g/dL 32.0-36.5 Below low sudhir l Mean Corpuscular HGB Conc [place] ([facility]) red cell distribution width 14.3 % 11.5-14.5 Red Cell Distribution Width [place] ([facility]) platelet count, automated 146 10 150-450 Below low sudhir l Platelet Count, Automated [facility] ([facility]) lymph % 36.0 % 24.0-44.0 Lymph % [place] ([facility]) mono % 6.8 % 2.0-8.0 Sharp % [place] ([facility]) baso % 0.9 % 0.0-1.0 Baso % [place] ([facility]) eos % 2.8 % 0.0-3.0 Eos % [place] ([facility]) immature granulocyte % 0.9 % 0-3.0 Immature Gran ulocyte % [place] ([facility]) neutrophils # 2.4 10 1.5-8.5 Neutrophils # [place] ( [facility]) nucleated red blood cell % 0.0 % 0-0 Nucleated Red Blood Cell % [place] ([facility]) eos # 0.1 10 0.0-0.5 Eos # [place] ([facility]) mono # 0.3 10 0.0-0.8 Sharp # [place] ([facility]) lymph # 1.7 10 1.5-5.0 Lymph # [place] ([facility]) baso # 0.0 10 0.0-0.2 Baso # [place] ([facility]) ID Date Data Source [id number] 06/30/2020 11:11:00 AM EDT [place] ([facility]) Name Value Range Interpretation Code Description Data Marian rce(s) Supporting Document(s) estimated average glucose 275 mg/dL 60-110 Above high norm al Estimated Average Glucose [facility] ([facility]) Hemoglobin A1c/Hemoglobin.total in Blood 11.2 % Hemoglobin a1C [facility] ([facility]) ID Date Data Source [id number] 06/30/2020 11:11:00 AM EDT [facility] ([facility]) Name Value Range Interpretation Code Description Data Marian rce(s) Supporting Document(s) HDL cholesterol 26 mg/dL >40 Below low normal HDL Cholestero l [facility] ([facility]) triglycerides level 563 mg/dL <150 Above high normal Triglycer ides Level [facility] ([facility]) cholesterol level 165 mg/dL <200 Cholesterol Level [place] ([facility]) non-HDL-C 139 mg/dL Non-hdl-c [facility] ([facility]) cholesterol risk ratio <5 Above high normal Choles terol Risk Ratio [facility] ([facility]) ID Date Data Source [id number] 06/30/2020 11:11:00 AM EDT [place] ([facility]) Name Value Range Interpretation Code Description Data Marian rce(s) Supporting Document(s) blood urea nitrogen 10 mg/dL 7-18 Blood Urea Nitro gen [facility] ([facility]) glucose, fasting 341 mg/dL 70-100 Above high normal Glucose, Fas ting [facility] ([facility]) potassium serum 4.1 mEq/L 3.5-5.1 Potassium Serum AT[facility] ([facility]) chloride level 100 mEq/L 98-107 Chloride Level [facility] ([facility]) creatinine for GFR 0.58 mg/dL 0.55-1.30 Creatinine for GF R [facility] ([facility]) sodium level 133 mEq/L 136-145 Below low normal Sodium Level ATHE NA ([facility]) glomerular filtration rate > 60.0 >58 Glomerula r Filtration Rate [facility] ([facility]) calcium level 8.7 mg/dL 8.5-10.1 Calcium Level [facility] ( [facility]) anion gap 7 mEq/L 8-16 Below low normal Anion Gap [place] ( [facility]) carbon dioxide level 26 mEq/L 21-32 Carbon Dioxide Level [facility] ([facility]) AST/SGOT 33 U/L 7-37 AST/SGOT [facility] ([facility]) alkaline phosphatase 89 U/L 45-117 Alkaline Phosph atase [facility] ([facility]) total protein 6.5 gm/dL 6.4-8.2 Total Protein [facility] ( [facility]) ALT/SGPT 52 U/L 12-78 ALT/SGPT [facility] ([facility]) bilirubin,total 0.4 mg/dL 0.2-1.0 Bilirubin,total ATHE NA ([facility]) albumin/globulin ratio 1.2-2.2 Albumin/globu claudia Ratio [facility] ([facility]) albumin 3.5 gm/dL 3.2-5.2 Albumin [facility] ([facility]) ID Date Data Source [id number] 06/30/2020 11:11:00 AM EDT [facility] ([facility]) Name Value Range Interpretation Code Description Data Marian rce(s) Supporting Document(s) white blood count 4.6 10 4.0-10.0 White Blood Count [facility] ([facility]) hemoglobin 12.9 g/dL 12.0-15.5 Hemoglobin [facility] ([facility]) hematocrit 40.4 % 36.0-47.0 Hematocrit [facility] ([facility]) red blood count 5.09 10 4.00-5.40 Red Blood Count ATHE NA ([facility]) red cell distribution width 14.3 % 11.5-14.5 Red Cell Distribution Width [facility] ([facility]) mean corpuscular HGB conc 31.9 g/dL 32.0-36.5 Below low sudhir l Mean Corpuscular HGB Conc [facility] ([facility]) mean corpuscular volume 79.4 fL 80.0-96.0 Below low normal Mean Corpuscular Volume [facility] ([facility]) mean corpuscular hemoglobin 25.3 pg 27.0-33.0 Below low nor mal Mean Corpuscular Hemoglobin [facility] ([facility]) lymph % 36.0 % 24.0-44.0 Lymph % [facility] ([facility]) mono % 6.8 % 2.0-8.0 Sharp % [facility] ([facility]) neutrophils % 52.6 % 36.0-66.0 Neutrophils % [facility] ( [facility]) platelet count, automated 146 10 150-450 Below low sudhir l Platelet Count, Automated [facility] ([facility]) immature granulocyte % 0.9 % 0-3.0 Immature Gran ulocyte % [facility] ([facility]) eos % 2.8 % 0.0-3.0 Eos % [facility] ([facility]) nucleated red blood cell % 0.0 % 0-0 Nucleated Red Blood Cell % [facility] ([facility]) baso % 0.9 % 0.0-1.0 Baso % [facility] ([facility]) lymph # 1.7 10 1.5-5.0 Lymph # [facility] ([facility]) mono # 0.3 10 0.0-0.8 Sharp # [facility] ([facility]) neutrophils # 2.4 10 1.5-8.5 Neutrophils # [facility] ( [facility]) eos # 0.1 10 0.0-0.5 Eos # [facility] ([facility]) baso # 0.0 10 0.0-0.2 Baso # [facility] ([facility]) ID Date Data Source [id number] 06/30/2020 11:11:00 AM EDT [facility] ([facility]) Name Value Range Interpretation Code Description Data Marian rce(s) Supporting Document(s) Hemoglobin A1c/Hemoglobin.total in Blood 11.2 % Hemoglobin a1C [facility] ([facility]) estimated average glucose 275 mg/dL 60-110 Above high norm al Estimated Average Glucose [place] ([facility]) ID Date Data Source [id number] 06/30/2020 11:11:00 AM EDT [place] ([facility]) Name Value Range Interpretation Code Description Data Marian rce(s) Supporting Document(s) triglycerides level 563 mg/dL <150 Above high normal Triglycer ides Level [facility] ([facility]) cholesterol level 165 mg/dL <200 Cholesterol Level [facility] ([facility]) cholesterol risk ratio <5 Above high normal Choles terol Risk Ratio [facility] ([facility]) HDL cholesterol 26 mg/dL >40 Below low normal HDL Cholestero l [facility] ([facility]) non-HDL-C 139 mg/dL Non-hdl-c [facility] ([facility]) ID Date Data Source [id number] 06/30/2020 11:11:00 AM EDT [facility] ([facility]) Name Value Range Interpretation Code Description Data Marian rce(s) Supporting Document(s) blood urea nitrogen 10 mg/dL 7-18 Blood Urea Nitro gen [facility] ([facility]) creatinine for GFR 0.58 mg/dL 0.55-1.30 Creatinine for GF R [facility] ([facility]) glomerular filtration rate > 60.0 >58 Glomerula r Filtration Rate [facility] ([facility]) glucose, fasting 341 mg/dL 70-100 Above high normal Glucose, Fas ting [facility] ([facility]) sodium level 133 mEq/L 136-145 Below low normal Sodium Level ATHE NA ([facility]) chloride level 100 mEq/L 98-107 Chloride Level [facility] ([facility]) potassium serum 4.1 mEq/L 3.5-5.1 Potassium Serum ATHE NA ([facility]) anion gap 7 mEq/L 8-16 Below low normal Anion Gap [facility] ( [facility]) calcium level 8.7 mg/dL 8.5-10.1 Calcium Level [facility] ( [facility]) carbon dioxide level 26 mEq/L 21-32 Carbon Dioxide Level [facility] ([facility]) bilirubin,total 0.4 mg/dL 0.2-1.0 Bilirubin,total ATHE ([facility]) AST/SGOT 33 U/L 7-37 AST/SGOT [facility] ([facility]) ALT/SGPT 52 U/L 12-78 ALT/SGPT [facility] ([facility]) alkaline phosphatase 89 U/L 45-117 Alkaline Phosph atase [facility] ([facility]) albumin 3.5 gm/dL 3.2-5.2 Albumin [facility] ([facility]) total protein 6.5 gm/dL 6.4-8.2 Total Protein [facility] ( [facility]) albumin/globulin ratio 1.2-2.2 Albumin/globu claudia Ratio [facility] ([facility]) ID Date Data Source [id number] 06/30/2020 11:11:00 AM EDT [facility] ([facility]) Name Value Range Interpretation Code Description Data Marian rce(s) Supporting Document(s) white blood count 4.6 10 4.0-10.0 White Blood Count [facility] ([facility]) hematocrit 40.4 % 36.0-47.0 Hematocrit [facility] ([facility]) mean corpuscular volume 79.4 fL 80.0-96.0 Below low normal Mean Corpuscular Volume [facility] ([facility]) red blood count 5.09 10 4.00-5.40 Red Blood Count ATHE ([facility]) hemoglobin 12.9 g/dL 12.0-15.5 Hemoglobin [facility] ([facility]) mean corpuscular hemoglobin 25.3 pg 27.0-33.0 Below low nor mal Mean Corpuscular Hemoglobin [facility] ([facility]) mean corpuscular HGB conc 31.9 g/dL 32.0-36.5 Below low sudhir l Mean Corpuscular HGB Conc [facility] ([facility]) red cell distribution width 14.3 % 11.5-14.5 Red Cell Distribution Width [facility] ([facility]) neutrophils % 52.6 % 36.0-66.0 Neutrophils % [facility] ( [facility]) lymph % 36.0 % 24.0-44.0 Lymph % [facility] ([facility]) platelet count, automated 146 10 150-450 Below low sudhir l Platelet Count, Automated [facility] ([facility]) immature granulocyte % 0.9 % 0-3.0 Immature Gran ulocyte % [facility] ([facility]) mono % 6.8 % 2.0-8.0 Sharp % [facility] ([facility]) baso % 0.9 % 0.0-1.0 Baso % [facility] ([facility]) eos % 2.8 % 0.0-3.0 Eos % [facility] ([facility]) lymph # 1.7 10 1.5-5.0 Lymph # [facility] ([facility]) nucleated red blood cell % 0.0 % 0-0 Nucleated Red Blood Cell % [facility] ([facility]) neutrophils # 2.4 10 1.5-8.5 Neutrophils # [facility] ( [facility]) mono # 0.3 10 0.0-0.8 Sharp # [facility] ([facility]) eos # 0.1 10 0.0-0.5 Eos # [facility] ([facility]) baso # 0.0 10 0.0-0.2 Baso # [facility] ([facility]) ID Date Data Source [id number] 06/30/2020 11:11:00 AM EDT [place] ([facility]) Name Value Range Interpretation Code Description Data Marian rce(s) Supporting Document(s) Hemoglobin A1c/Hemoglobin.total in Blood 11.2 % Hemoglobin a1C [facility] ([facility]) estimated average glucose 275 mg/dL 60-110 Above high norm al Estimated Average Glucose [facility] ([facility]) ID Date Data Source [id number] 06/30/2020 11:11:00 AM EDT [place] ([facility]) Name Value Range Interpretation Code Description Data Marian rce(s) Supporting Document(s) cholesterol level 165 mg/dL <200 Cholesterol Level [facility] ([facility]) HDL cholesterol 26 mg/dL >40 Below low normal HDL Cholestero l [facility] ([facility]) triglycerides level 563 mg/dL <150 Above high normal Triglycer ides Level [facility] ([facility]) cholesterol risk ratio <5 Above high normal Choles terol Risk Ratio [facility] ([facility]) non-HDL-C 139 mg/dL Non-hdl-c [facility] ([facility]) ID Date Data Source [id number] 06/30/2020 11:11:00 AM EDT [facility] ([facility]) Name Value Range Interpretation Code Description Data Marian rce(s) Supporting Document(s) glucose, fasting 341 mg/dL 70-100 Above high normal Glucose, Fas ting [facility] ([facility]) blood urea nitrogen 10 mg/dL 7-18 Blood Urea Nitro gen [facility] ([facility]) glomerular filtration rate > 60.0 >58 Glomerula r Filtration Rate [facility] ([facility]) creatinine for GFR 0.58 mg/dL 0.55-1.30 Creatinine for GF R [facility] ([facility]) chloride level 100 mEq/L 98-107 Chloride Level [facility] ([facility]) potassium serum 4.1 mEq/L 3.5-5.1 Potassium Serum [facility] ([facility]) sodium level 133 mEq/L 136-145 Below low normal Sodium Level [facility] ([facility]) calcium level 8.7 mg/dL 8.5-10.1 Calcium Level [facility] ( [facility]) AST/SGOT 33 U/L 7-37 AST/SGOT [facility] ([facility]) carbon dioxide level 26 mEq/L 21-32 Carbon Dioxide Level [facility] ([facility]) anion gap 7 mEq/L 8-16 Below low normal Anion Gap [facility] ( [facility]) alkaline phosphatase 89 U/L 45-117 Alkaline Phosph atase [facility] ([facility]) bilirubin,total 0.4 mg/dL 0.2-1.0 Bilirubin,total [facility] ([facility]) total protein 6.5 gm/dL 6.4-8.2 Total Protein [facility] ( [facility]) ALT/SGPT 52 U/L 12-78 ALT/SGPT [facility] ([facility]) albumin/globulin ratio 1.2-2.2 Albumin/globu claudia Ratio [facility] ([facility]) albumin 3.5 gm/dL 3.2-5.2 Albumin [facility] ([facility]) ID Date Data Source [id number] 06/30/2020 11:11:00 AM EDT [facility] ([facility]) Name Value Range Interpretation Code Description Data Marian rce(s) Supporting Document(s) white blood count 4.6 10 4.0-10.0 White Blood Count [facility] ([facility]) red blood count 5.09 10 4.00-5.40 Red Blood Count [facility] ([facility]) hematocrit 40.4 % 36.0-47.0 Hematocrit [facility] ([facility]) hemoglobin 12.9 g/dL 12.0-15.5 Hemoglobin [facility] ([facility]) mean corpuscular volume 79.4 fL 80.0-96.0 Below low normal Mean Corpuscular Volume [facility] ([facility]) red cell distribution width 14.3 % 11.5-14.5 Red Cell Distribution Width [facility] ([facility]) platelet count, automated 146 10 150-450 Below low sudhir l Platelet Count, Automated [facility] ([facility]) mean corpuscular hemoglobin 25.3 pg 27.0-33.0 Below low nor mal Mean Corpuscular Hemoglobin [facility] ([facility]) mean corpuscular HGB conc 31.9 g/dL 32.0-36.5 Below low sudhir l Mean Corpuscular HGB Conc [facility] ([facility]) mono % 6.8 % 2.0-8.0 Sharp % [facility] ([facility]) neutrophils % 52.6 % 36.0-66.0 Neutrophils % [facility] ( [facility]) lymph % 36.0 % 24.0-44.0 Lymph % [facility] ([facility]) eos % 2.8 % 0.0-3.0 Eos % [facility] ([facility]) immature granulocyte % 0.9 % 0-3.0 Immature Gran ulocyte % [facility] ([facility]) baso % 0.9 % 0.0-1.0 Baso % [facility] ([facility]) neutrophils # 2.4 10 1.5-8.5 Neutrophils # [facility] ( [facility]) nucleated red blood cell % 0.0 % 0-0 Nucleated Red Blood Cell % [facility] ([facility]) lymph # 1.7 10 1.5-5.0 Lymph # [facility] ([facility]) mono # 0.3 10 0.0-0.8 Sharp # [facility] ([facility]) eos # 0.1 10 0.0-0.5 Eos # [facility] ([facility]) baso # 0.0 10 0.0-0.2 Baso # [facility] ([facility]) ID Date Data Source [id number] 06/30/2020 11:11:00 AM EDT [place] ([facility]) Name Value Range Interpretation Code Description Data Marian rce(s) Supporting Document(s) Hemoglobin A1c/Hemoglobin.total in Blood 11.2 % Hemoglobin a1C [place] ([facility]) estimated average glucose 275 mg/dL 60-110 Above high norm al Estimated Average Glucose [facility] ([facility]) ID Date Data Source [id number] 06/30/2020 11:11:00 AM EDT [place] ([facility]) Name Value Range Interpretation Code Description Data Marian rce(s) Supporting Document(s) triglycerides level 563 mg/dL <150 Above high normal Triglycer ides Level [facility] ([facility]) cholesterol level 165 mg/dL <200 Cholesterol Level [facility] ([facility]) HDL cholesterol 26 mg/dL >40 Below low normal HDL Cholestero l [facility] ([facility]) non-HDL-C 139 mg/dL Non-hdl-c [facility] ([facility]) cholesterol risk ratio <5 Above high normal Choles terol Risk Ratio [facility] ([facility]) ID Date Data Source [id number] 06/30/2020 11:11:00 AM EDT [facility] ([facility]) Name Value Range Interpretation Code Description Data Marian rce(s) Supporting Document(s) glucose, fasting 341 mg/dL 70-100 Above high normal Glucose, Fas ting [facility] ([facility]) blood urea nitrogen 10 mg/dL 7-18 Blood Urea Nitro gen [facility] ([facility]) creatinine for GFR 0.58 mg/dL 0.55-1.30 Creatinine for GF R [facility] ([facility]) sodium level 133 mEq/L 136-145 Below low normal Sodium Level [facility] ([facility]) potassium serum 4.1 mEq/L 3.5-5.1 Potassium Serum [facility] ([facility]) glomerular filtration rate > 60.0 >58 Glomerula r Filtration Rate [facility] ([facility]) anion gap 7 mEq/L 8-16 Below low normal Anion Gap [facility] ( [facility]) chloride level 100 mEq/L 98-107 Chloride Level [facility] ([facility]) carbon dioxide level 26 mEq/L 21-32 Carbon Dioxide Level [facility] ([facility]) calcium level 8.7 mg/dL 8.5-10.1 Calcium Level [place] ( [facility]) ALT/SGPT 52 U/L 12-78 ALT/SGPT [facility] ([facility]) AST/SGOT 33 U/L 7-37 AST/SGOT [facility] ([facility]) bilirubin,total 0.4 mg/dL 0.2-1.0 Bilirubin,total [facility] ([facility]) alkaline phosphatase 89 U/L 45-117 Alkaline Phosph atase [facility] ([facility]) albumin 3.5 gm/dL 3.2-5.2 Albumin [facility] ([facility]) total protein 6.5 gm/dL 6.4-8.2 Total Protein [facility] ( [facility]) albumin/globulin ratio 1.2-2.2 Albumin/globu claudia Ratio [facility] ([facility]) ID Date Data Source [id number] 06/30/2020 11:11:00 AM EDT [facility] ([facility]) Name Value Range Interpretation Code Description Data Marian rce(s) Supporting Document(s) white blood count 4.6 10 4.0-10.0 White Blood Count [facility] ([facility]) red blood count 5.09 10 4.00-5.40 Red Blood Count ATHE NA ([facility]) hematocrit 40.4 % 36.0-47.0 Hematocrit [facility] ([facility]) hemoglobin 12.9 g/dL 12.0-15.5 Hemoglobin [facility] ([facility]) mean corpuscular volume 79.4 fL 80.0-96.0 Below low normal Mean Corpuscular Volume [facility] ([facility]) mean corpuscular hemoglobin 25.3 pg 27.0-33.0 Below low nor mal Mean Corpuscular Hemoglobin [facility] ([facility]) mean corpuscular HGB conc 31.9 g/dL 32.0-36.5 Below low sudhir l Mean Corpuscular HGB Conc [facility] ([facility]) platelet count, automated 146 10 150-450 Below low sudhir l Platelet Count, Automated [facility] ([facility]) red cell distribution width 14.3 % 11.5-14.5 Red Cell Distribution Width [facility] ([facility]) neutrophils % 52.6 % 36.0-66.0 Neutrophils % [place] ( [facility]) baso % 0.9 % 0.0-1.0 Baso % [facility] ([facility]) lymph % 36.0 % 24.0-44.0 Lymph % [facility] ([facility]) mono % 6.8 % 2.0-8.0 Sharp % [facility] ([facility]) eos % 2.8 % 0.0-3.0 Eos % [place] ([facility]) neutrophils # 2.4 10 1.5-8.5 Neutrophils # [place] ( [facility]) nucleated red blood cell % 0.0 % 0-0 Nucleated Red Blood Cell % [facility] ([facility]) immature granulocyte % 0.9 % 0-3.0 Immature Gran ulocyte % [facility] ([facility]) lymph # 1.7 10 1.5-5.0 Lymph # [facility] ([facility]) eos # 0.1 10 0.0-0.5 Eos # [facility] ([facility]) mono # 0.3 10 0.0-0.8 Sharp # [facility] ([facility]) baso # 0.0 10 0.0-0.2 Baso # [facility] ([facility]) ID Date Data Source [id number] 06/30/2020 11:11:00 AM EDT [place] ([facility]) Name Value Range Interpretation Code Description Data Marian rce(s) Supporting Document(s) Hemoglobin A1c/Hemoglobin.total in Blood 11.2 % Hemoglobin a1C [facility] ([facility]) estimated average glucose 275 mg/dL 60-110 Above high norm al Estimated Average Glucose [facility] ([facility]) ID Date Data Source [id number] 06/30/2020 11:11:00 AM EDT [place] ([facility]) Name Value Range Interpretation Code Description Data Marian rce(s) Supporting Document(s) triglycerides level 563 mg/dL <150 Above high normal Triglycer ides Level [facility] ([facility]) HDL cholesterol 26 mg/dL >40 Below low normal HDL Cholestero l [facility] ([facility]) cholesterol level 165 mg/dL <200 Cholesterol Level [facility] ([facility]) cholesterol risk ratio <5 Above high normal Choles terol Risk Ratio [facility] ([facility]) non-HDL-C 139 mg/dL Non-hdl-c [facility] ([facility]) ID Date Data Source [id number] 06/30/2020 11:11:00 AM EDT [place] ([facility]) Name Value Range Interpretation Code Description Data Marian rce(s) Supporting Document(s) creatinine for GFR 0.58 mg/dL 0.55-1.30 Creatinine for GF R [facility] ([facility]) glucose, fasting 341 mg/dL 70-100 Above high normal Glucose, Fas ting [facility] ([facility]) glomerular filtration rate > 60.0 >58 Glomerula r Filtration Rate [facility] ([facility]) blood urea nitrogen 10 mg/dL 7-18 Blood Urea Nitro gen [facility] ([facility]) carbon dioxide level 26 mEq/L 21-32 Carbon Dioxide Level [facility] ([facility]) potassium serum 4.1 mEq/L 3.5-5.1 Potassium Serum ATHE NA ([facility]) sodium level 133 mEq/L 136-145 Below low normal Sodium Level [facility] NA ([facility]) chloride level 100 mEq/L 98-107 Chloride Level [place] ([facility]) AST/SGOT 33 U/L 7-37 AST/SGOT [facility] ([facility]) anion gap 7 mEq/L 8-16 Below low normal Anion Gap [facility] ( [facility]) calcium level 8.7 mg/dL 8.5-10.1 Calcium Level [facility] ( [facility]) bilirubin,total 0.4 mg/dL 0.2-1.0 Bilirubin,total [facility] ([facility]) total protein 6.5 gm/dL 6.4-8.2 Total Protein [facility] ( [facility]) alkaline phosphatase 89 U/L 45-117 Alkaline Phosph atase [facility] ([facility]) ALT/SGPT 52 U/L 12-78 ALT/SGPT [facility] ([facility]) albumin/globulin ratio 1.2-2.2 Albumin/globu claudia Ratio [facility] ([facility]) albumin 3.5 gm/dL 3.2-5.2 Albumin [place] ([facility]) ID Date Data Source [id number] 06/30/2020 11:11:00 AM EDT [facility] ([facility]) Name Value Range Interpretation Code Description Data Marian rce(s) Supporting Document(s) white blood count 4.6 10 4.0-10.0 White Blood Count [facility] ([facility]) red blood count 5.09 10 4.00-5.40 Red Blood Count ATHE NA ([facility]) hemoglobin 12.9 g/dL 12.0-15.5 Hemoglobin [facility] ([facility]) hematocrit 40.4 % 36.0-47.0 Hematocrit [facility] ([facility]) mean corpuscular volume 79.4 fL 80.0-96.0 Below low normal Mean Corpuscular Volume [facility] ([facility]) mean corpuscular HGB conc 31.9 g/dL 32.0-36.5 Below low sudhir l Mean Corpuscular HGB Conc [facility] ([facility]) red cell distribution width 14.3 % 11.5-14.5 Red Cell Distribution Width [facility] ([facility]) mean corpuscular hemoglobin 25.3 pg 27.0-33.0 Below low nor mal Mean Corpuscular Hemoglobin [facility] ([facility]) neutrophils % 52.6 % 36.0-66.0 Neutrophils % [facility] ( [facility]) platelet count, automated 146 10 150-450 Below low sudhir l Platelet Count, Automated [facility] ([facility]) lymph % 36.0 % 24.0-44.0 Lymph % [facility] ([facility]) mono % 6.8 % 2.0-8.0 Sharp % [facility] ([facility]) eos % 2.8 % 0.0-3.0 Eos % [facility] ([facility]) baso % 0.9 % 0.0-1.0 Baso % [facility] ([facility]) immature granulocyte % 0.9 % 0-3.0 Immature Gran ulocyte % [facility] ([facility]) nucleated red blood cell % 0.0 % 0-0 Nucleated Red Blood Cell % [facility] ([facility]) neutrophils # 2.4 10 1.5-8.5 Neutrophils # [facility] ( [facility]) lymph # 1.7 10 1.5-5.0 Lymph # [facility] ([facility]) eos # 0.1 10 0.0-0.5 Eos # [facility] ([facility]) mono # 0.3 10 0.0-0.8 Sharp # [facility] ([facility]) baso # 0.0 10 0.0-0.2 Baso # [facility] ([facility]) ID Date Data Source [id number] 06/30/2020 11:11:00 AM EDT [place] ([facility]) Name Value Range Interpretation Code Description Data Marian rce(s) Supporting Document(s) estimated average glucose 275 mg/dL 60-110 Above high norm al Estimated Average Glucose [place] ([facility]) Hemoglobin A1c/Hemoglobin.total in Blood 11.2 % Hemoglobin a1C [facility] ([facility]) ID Date Data Source [id number] 06/30/2020 11:11:00 AM EDT [place] ([facility]) Name Value Range Interpretation Code Description Data Marian rce(s) Supporting Document(s) triglycerides level 563 mg/dL <150 Above high normal Triglycer ides Level [facility] ([facility]) cholesterol level 165 mg/dL <200 Cholesterol Level [place] ([facility]) HDL cholesterol 26 mg/dL >40 Below low normal HDL Cholestero l [facility] ([facility]) non-HDL-C 139 mg/dL Non-hdl-c [facility] ([facility]) cholesterol risk ratio <5 Above high normal Choles terol Risk Ratio [facility] ([facility]) ID Date Data Source [id number] 06/30/2020 11:11:00 AM EDT [place] ([facility]) Name Value Range Interpretation Code Description Data Marian rce(s) Supporting Document(s) glucose, fasting 341 mg/dL 70-100 Above high normal Glucose, Fas ting [facility] ([facility]) blood urea nitrogen 10 mg/dL 7-18 Blood Urea Nitro gen [facility] ([facility]) creatinine for GFR 0.58 mg/dL 0.55-1.30 Creatinine for GF R [facility] ([facility]) potassium serum 4.1 mEq/L 3.5-5.1 Potassium Serum ATHE NA ([facility]) sodium level 133 mEq/L 136-145 Below low normal Sodium Level [facility] NA ([facility]) glomerular filtration rate > 60.0 >58 Glomerula r Filtration Rate [facility] ([facility]) anion gap 7 mEq/L 8-16 Below low normal Anion Gap [facility] ( [facility]) chloride level 100 mEq/L 98-107 Chloride Level [facility] ([facility]) calcium level 8.7 mg/dL 8.5-10.1 Calcium Level [facility] ( [facility]) carbon dioxide level 26 mEq/L 21-32 Carbon Dioxide Level [facility] ([facility]) bilirubin,total 0.4 mg/dL 0.2-1.0 Bilirubin,total ATHE NA ([facility]) alkaline phosphatase 89 U/L 45-117 Alkaline Phosph atase [facility] ([facility]) ALT/SGPT 52 U/L 12-78 ALT/SGPT [facility] ([facility]) AST/SGOT 33 U/L 7-37 AST/SGOT [facility] ([facility]) albumin 3.5 gm/dL 3.2-5.2 Albumin [facility] ([facility]) total protein 6.5 gm/dL 6.4-8.2 Total Protein [facility] ( [facility]) albumin/globulin ratio 1.2-2.2 Albumin/globu claudia Ratio [facility] ([facility]) ID Date Data Source [id number] 06/30/2020 11:11:00 AM EDT [facility] ([facility]) Name Value Range Interpretation Code Description Data Marian rce(s) Supporting Document(s) white blood count 4.6 10 4.0-10.0 White Blood Count [facility] ([facility]) hematocrit 40.4 % 36.0-47.0 Hematocrit [facility] ([facility]) hemoglobin 12.9 g/dL 12.0-15.5 Hemoglobin [facility] ([facility]) red blood count 5.09 10 4.00-5.40 Red Blood Count ATHE NA ([facility]) mean corpuscular volume 79.4 fL 80.0-96.0 Below low normal Mean Corpuscular Volume [facility] ([facility]) mean corpuscular HGB conc 31.9 g/dL 32.0-36.5 Below low sudhir l Mean Corpuscular HGB Conc [facility] ([facility]) mean corpuscular hemoglobin 25.3 pg 27.0-33.0 Below low nor mal Mean Corpuscular Hemoglobin [facility] ([facility]) red cell distribution width 14.3 % 11.5-14.5 Red Cell Distribution Width [facility] ([facility]) lymph % 36.0 % 24.0-44.0 Lymph % [facility] ([facility]) neutrophils % 52.6 % 36.0-66.0 Neutrophils % [facility] ( [facility]) mono % 6.8 % 2.0-8.0 Sharp % [place] ([facility]) platelet count, automated 146 10 150-450 Below low sudhir l Platelet Count, Automated [facility] ([facility]) immature granulocyte % 0.9 % 0-3.0 Immature Gran ulocyte % [facility] ([facility]) eos % 2.8 % 0.0-3.0 Eos % [facility] ([facility]) baso % 0.9 % 0.0-1.0 Baso % [facility] ([facility]) lymph # 1.7 10 1.5-5.0 Lymph # [facility] ([facility]) neutrophils # 2.4 10 1.5-8.5 Neutrophils # [facility] ( [facility]) nucleated red blood cell % 0.0 % 0-0 Nucleated Red Blood Cell % [facility] ([facility]) mono # 0.3 10 0.0-0.8 Sharp # [facility] ([facility]) eos # 0.1 10 0.0-0.5 Eos # [facility] ([facility]) baso # 0.0 10 0.0-0.2 Baso # [facility] ([facility]) ID Date Data Source [id number] 06/30/2020 11:11:00 AM EDT [place] ([facility]) Name Value Range Interpretation Code Description Data Marian rce(s) Supporting Document(s) estimated average glucose 275 mg/dL 60-110 Above high norm al Estimated Average Glucose [facility] ([facility]) Hemoglobin A1c/Hemoglobin.total in Blood 11.2 % Hemoglobin a1C [place] ([facility]) ID Date Data Source [id number] 06/30/2020 11:11:00 AM EDT [facility] ([facility]) Name Value Range Interpretation Code Description Data Marian rce(s) Supporting Document(s) triglycerides level 563 mg/dL <150 Above high normal Triglycer ides Level [facility] ([facility]) cholesterol level 165 mg/dL <200 Cholesterol Level [place] ([facility]) non-HDL-C 139 mg/dL Non-hdl-c [facility] ([facility]) HDL cholesterol 26 mg/dL >40 Below low normal HDL Cholestero l [facility] ([facility]) cholesterol risk ratio <5 Above high normal Choles terol Risk Ratio [place] ([facility]) ID Date Data Source [id number] 06/30/2020 11:11:00 AM EDT [place] ([facility]) Name Value Range Interpretation Code Description Data Marian rce(s) Supporting Document(s) creatinine for GFR 0.58 mg/dL 0.55-1.30 Creatinine for GF R [facility] ([facility]) blood urea nitrogen 10 mg/dL 7-18 Blood Urea Nitro gen [facility] ([facility]) glucose, fasting 341 mg/dL 70-100 Above high normal Glucose, Fas ting [facility] ([facility]) glomerular filtration rate > 60.0 >58 Glomerula r Filtration Rate [facility] ([facility]) sodium level 133 mEq/L 136-145 Below low normal Sodium Level [facility] NA ([facility]) carbon dioxide level 26 mEq/L 21-32 Carbon Dioxide Level [facility] ([facility]) potassium serum 4.1 mEq/L 3.5-5.1 Potassium Serum [facility] ([facility]) chloride level 100 mEq/L 98-107 Chloride Level [facility] ([facility]) anion gap 7 mEq/L 8-16 Below low normal Anion Gap [facility] ( [facility]) calcium level 8.7 mg/dL 8.5-10.1 Calcium Level [facility] ( [facility]) AST/SGOT 33 U/L 7-37 AST/SGOT [facility] ([facility]) alkaline phosphatase 89 U/L 45-117 Alkaline Phosph atase [facility] ([facility]) bilirubin,total 0.4 mg/dL 0.2-1.0 Bilirubin,total [facility] ([facility]) ALT/SGPT 52 U/L 12-78 ALT/SGPT [facility] ([facility]) albumin 3.5 gm/dL 3.2-5.2 Albumin [facility] ([facility]) total protein 6.5 gm/dL 6.4-8.2 Total Protein [facility] ( [facility]) albumin/globulin ratio 1.2-2.2 Albumin/globu claudia Ratio [facility] ([facility]) ID Date Data Source [id number] 06/30/2020 11:11:00 AM EDT [facility] ([facility]) Name Value Range Interpretation Code Description Data Marian rce(s) Supporting Document(s) white blood count 4.6 10 4.0-10.0 White Blood Count [facility] ([facility]) red blood count 5.09 10 4.00-5.40 Red Blood Count [facility] ([facility]) hemoglobin 12.9 g/dL 12.0-15.5 Hemoglobin [facility] ([facility]) mean corpuscular volume 79.4 fL 80.0-96.0 Below low normal Mean Corpuscular Volume [facility] ([facility]) hematocrit 40.4 % 36.0-47.0 Hematocrit [facility] ([facility]) mean corpuscular HGB conc 31.9 g/dL 32.0-36.5 Below low sudhir l Mean Corpuscular HGB Conc [facility] ([facility]) mean corpuscular hemoglobin 25.3 pg 27.0-33.0 Below low nor mal Mean Corpuscular Hemoglobin TONEY ([facility]) red cell distribution width 14.3 % 11.5-14.5 Red Cell Distribution Width TONEY ([facility]) platelet count, automated 146 10 150-450 Below low sudhir l Platelet Count, Automated TONEY ([facility]) neutrophils % 52.6 % 36.0-66.0 Neutrophils % TONEY ( [facility]) lymph % 36.0 % 24.0-44.0 Lymph % TONEY ([facility]) mono % 6.8 % 2.0-8.0 Sharp % TONEY ([facility]) eos % 2.8 % 0.0-3.0 Eos % [facility]ONEY ([facility]) baso % 0.9 % 0.0-1.0 Baso % [place] ([facility]) immature granulocyte % 0.9 % 0-3.0 Immature Gran ulocyte % TONEY ([facility]) neutrophils # 2.4 10 1.5-8.5 Neutrophils # TONEY ( [facility]) lymph # 1.7 10 1.5-5.0 Lymph # [place] ([facility]) nucleated red blood cell % 0.0 % 0-0 Nucleated Red Blood Cell % TONEY ([facility]) mono # 0.3 10 0.0-0.8 Sharp # TONEY ([facility]) baso # 0.0 10 0.0-0.2 Baso # [facility]ONEY ([facility]) eos # 0.1 10 0.0-0.5 Eos # TONEY ([facility]) ID Date Data Source [id number] 06/30/2020 11:11:00 AM EDT [facility] ([facility]) Name Value Range Interpretation Code Description Data Marian rce(s) Supporting Document(s) Hemoglobin A1c/Hemoglobin.total in Blood 11.2 % Hemoglobin a1C TONEY ([facility]) estimated average glucose 275 mg/dL 60-110 Above high norm al Estimated Average Glucose [facility] ([facility]) ID Date Data Source [id number] 06/30/2020 11:11:00 AM EDT TONEY ([facility]) Name Value Range Interpretation Code Description Data Marian rce(s) Supporting Document(s) triglycerides level 563 mg/dL <150 Above high normal Triglycer ides Level TONEY ([facility]) non-HDL-C 139 mg/dL Non-hdl-c [facility]ONEY ([facility]) HDL cholesterol 26 mg/dL >40 Below low normal HDL Cholestero l [facility]ONEY ([facility]) cholesterol level 165 mg/dL <200 Cholesterol Level TONEY ([facility]) cholesterol risk ratio <5 Above high normal Choles terol Risk Ratio [facility]ONE[facility] ([facility]) ID Date Data Source [id number] 06/30/2020 11:11:00 AM EDT [place] ([facility]) Name Value Range Interpretation Code Description Data Marian rce(s) Supporting Document(s) glucose, fasting 341 mg/dL 70-100 Above high normal Glucose, Fas ting [facility]ONEY ([facility]) blood urea nitrogen 10 mg/dL 7-18 Blood Urea Nitro gen [facility] ([facility]) creatinine for GFR 0.58 mg/dL 0.55-1.30 Creatinine for GF R TONEY ([facility]) chloride level 100 mEq/L 98-107 Chloride Level TONEY ([facility]) glomerular filtration rate > 60.0 >58 Glomerula r Filtration Rate TONEY ([facility]) sodium level 133 mEq/L 136-145 Below low normal Sodium Level ATHE NA ([facility]) potassium serum 4.1 mEq/L 3.5-5.1 Potassium Serum ATHE NA ([facility]) ALT/SGPT 52 U/L 12-78 ALT/SGPT TONE[facility] ([facility]) anion gap 7 mEq/L 8-16 Below low normal Anion Gap TONEY ( [facility]) carbon dioxide level 26 mEq/L 21-32 Carbon Dioxide Level TONEY ([facility]) AST/SGOT 33 U/L 7-37 AST/SGOT [facility]ONE[facility] ([facility]) calcium level 8.7 mg/dL 8.5-10.1 Calcium Level TONEY ( [facility]) total protein 6.5 gm/dL 6.4-8.2 Total Protein TONEY ( [facility]) bilirubin,total 0.4 mg/dL 0.2-1.0 Bilirubin,total ATHE NA ([facility]) albumin 3.5 gm/dL 3.2-5.2 Albumin [facility]ONE[facility] ([facility]) alkaline phosphatase 89 U/L 45-117 Alkaline Phosph atase [facility]ONE[facility] ([facility]) albumin/globulin ratio 1.2-2.2 Albumin/globu claudia Ratio [facility]ONEY ([facility]) ID Date Data Source [id number] 06/30/2020 11:11:00 AM EDT TONE[facility] ([facility]) Name Value Range Interpretation Code Description Data Marian rce(s) Supporting Document(s) hemoglobin 12.9 g/dL 12.0-15.5 Hemoglobin [facility]ONEY ([facility]) red blood count 5.09 10 4.00-5.40 Red Blood Count ATHE ([facility]) white blood count 4.6 10 4.0-10.0 White Blood Count [facility]ONEY ([facility]) hematocrit 40.4 % 36.0-47.0 Hematocrit TONEY ([facility]) mean corpuscular hemoglobin 25.3 pg 27.0-33.0 Below low nor mal Mean Corpuscular Hemoglobin TONEY ([facility]) mean corpuscular volume 79.4 fL 80.0-96.0 Below low normal Mean Corpuscular Volume [facility]ONE[facility] ([facility]) platelet count, automated 146 10 150-450 Below low sudhir l Platelet Count, Automated [facility] ([facility]) red cell distribution width 14.3 % 11.5-14.5 Red Cell Distribution Width [facility]ONE[facility] ([facility]) mean corpuscular HGB conc 31.9 g/dL 32.0-36.5 Below low sudhir l Mean Corpuscular HGB Conc [facility]ONEY ([facility]) neutrophils % 52.6 % 36.0-66.0 Neutrophils % [facility] ( [facility]) mono % 6.8 % 2.0-8.0 Sharp % [facility]ONE[facility] ([facility]) eos % 2.8 % 0.0-3.0 Eos % [facility] ([facility]) lymph % 36.0 % 24.0-44.0 Lymph % [facility] ([facility]) baso % 0.9 % 0.0-1.0 Baso % [place] ([facility]) nucleated red blood cell % 0.0 % 0-0 Nucleated Red Blood Cell % [facility]ONE[facility] ([facility]) immature granulocyte % 0.9 % 0-3.0 Immature Gran ulocyte % [facility]ONEY ([facility]) neutrophils # 2.4 10 1.5-8.5 Neutrophils # [facility]ONEY ( [facility]) baso # 0.0 10 0.0-0.2 Baso # [facility] ([facility]) mono # 0.3 10 0.0-0.8 Sharp # [facility]ONE[facility] ([facility]) lymph # 1.7 10 1.5-5.0 Lymph # [facility] ([facility]) eos # 0.1 10 0.0-0.5 Eos # [facility] ([facility]) ID Date Data Source [id number] 06/30/2020 11:11:00 AM EDT TONEY ([facility]) Name Value Range Interpretation Code Description Data Marian rce(s) Supporting Document(s) non-HDL-C 139 mg/dL Non-hdl-c [facility]ONEY ([facility]) HDL cholesterol 26 mg/dL >40 Below low normal HDL Cholestero l [facility]ONE[facility] ([facility]) cholesterol level 165 mg/dL <200 Cholesterol Level [facility]ONE[facility] ([facility]) triglycerides level 563 mg/dL <150 Above high normal Triglycer ides Level [facility]ONEY ([facility]) cholesterol risk ratio <5 Above high normal Choles terol Risk Ratio [facility] ([facility]) ID Date Data Source [id number] 06/30/2020 11:11:00 AM EDT [facility]ONE[facility] ([facility]) Name Value Range Interpretation Code Description Data Marian rce(s) Supporting Document(s) blood urea nitrogen 10 mg/dL 7-18 Blood Urea Nitro gen [facility] ([facility]) creatinine for GFR 0.58 mg/dL 0.55-1.30 Creatinine for GF R TONE[facility] ([facility]) glucose, fasting 341 mg/dL 70-100 Above high normal Glucose, Fas ting [facility]ONE[facility] ([facility]) sodium level 133 mEq/L 136-145 Below low normal Sodium Level ATHE ([facility]) glomerular filtration rate > 60.0 >58 Glomerula r Filtration Rate [facility]ONE[facility] ([facility]) chloride level 100 mEq/L 98-107 Chloride Level [facility] ([facility]) potassium serum 4.1 mEq/L 3.5-5.1 Potassium Serum ATHE ([facility]) anion gap 7 mEq/L 8-16 Below low normal Anion Gap TONEY ( [facility]) calcium level 8.7 mg/dL 8.5-10.1 Calcium Level [facility]ONEY ( [facility]) carbon dioxide level 26 mEq/L 21-32 Carbon Dioxide Level [facility]ONE[facility] ([facility]) bilirubin,total 0.4 mg/dL 0.2-1.0 Bilirubin,total ATHE ([facility]) ALT/SGPT 52 U/L 12-78 ALT/SGPT [facility]ONE[facility] ([facility]) AST/SGOT 33 U/L 7-37 AST/SGOT [facility] ([facility]) alkaline phosphatase 89 U/L 45-117 Alkaline Phosph atase [facility]ONE[facility] ([facility]) total protein 6.5 gm/dL 6.4-8.2 Total Protein [facility]ONEY ( [facility]) albumin 3.5 gm/dL 3.2-5.2 Albumin [facility]ONE[facility] ([facility]) albumin/globulin ratio 1.2-2.2 Albumin/globu claudia Ratio [facility] ([facility]) ID Date Data Source [id number] 06/30/2020 11:11:00 AM EDT [facility]ONE[facility] ([facility]) Name Value Range Interpretation Code Description Data Marian rce(s) Supporting Document(s) white blood count 4.6 10 4.0-10.0 White Blood Count [facility] ([facility]) red blood count 5.09 10 4.00-5.40 Red Blood Count ATHE NA ([facility]) mean corpuscular volume 79.4 fL 80.0-96.0 Below low normal Mean Corpuscular Volume [facility] ([facility]) hematocrit 40.4 % 36.0-47.0 Hematocrit [facility] ([facility]) hemoglobin 12.9 g/dL 12.0-15.5 Hemoglobin [facility] ([facility]) red cell distribution width 14.3 % 11.5-14.5 Red Cell Distribution Width [facility] ([facility]) platelet count, automated 146 10 150-450 Below low sudhir l Platelet Count, Automated [facility] ([facility]) mean corpuscular hemoglobin 25.3 pg 27.0-33.0 Below low nor mal Mean Corpuscular Hemoglobin [facility]ONE[facility] ([facility]) mean corpuscular HGB conc 31.9 g/dL 32.0-36.5 Below low sudhir l Mean Corpuscular HGB Conc [facility] ([facility]) mono % 6.8 % 2.0-8.0 Sharp % [facility] ([facility]) lymph % 36.0 % 24.0-44.0 Lymph % [facility] ([facility]) neutrophils % 52.6 % 36.0-66.0 Neutrophils % [facility] ( [facility]) immature granulocyte % 0.9 % 0-3.0 Immature Gran ulocyte % [facility] ([facility]) baso % 0.9 % 0.0-1.0 Baso % [facility] ([facility]) eos % 2.8 % 0.0-3.0 Eos % [facility] ([facility]) nucleated red blood cell % 0.0 % 0-0 Nucleated Red Blood Cell % [facility] ([facility]) neutrophils # 2.4 10 1.5-8.5 Neutrophils # [facility] ( [facility]) lymph # 1.7 10 1.5-5.0 Lymph # [facility] ([facility]) eos # 0.1 10 0.0-0.5 Eos # [facility] ([facility]) baso # 0.0 10 0.0-0.2 Baso # [facility] ([facility]) mono # 0.3 10 0.0-0.8 Sharp # [facility] ([facility]) ID Date Data Source [id number] 06/30/2020 11:11:00 AM EDT [facility] ([facility]) Name Value Range Interpretation Code Description Data Marian rce(s) Supporting Document(s) estimated average glucose 275 mg/dL 60-110 Above high norm al Estimated Average Glucose [facility] ([facility]) Hemoglobin A1c/Hemoglobin.total in Blood 11.2 % Hemoglobin a1C [facility] ([facility]) ID Date Data Source [id number] 06/30/2020 11:11:00 AM EDT [facility] ([facility]) Name Value Range Interpretation Code Description Data Marian rce(s) Supporting Document(s) cholesterol level 165 mg/dL <200 Cholesterol Level [facility] ([facility]) HDL cholesterol 26 mg/dL >40 Below low normal HDL Cholestero l [facility] ([facility]) triglycerides level 563 mg/dL <150 Above high normal Triglycer ides Level [facility] ([facility]) non-HDL-C 139 mg/dL Non-hdl-c [facility] ([facility]) cholesterol risk ratio <5 Above high normal Choles terol Risk Ratio [facility] ([facility]) ID Date Data Source [id number] 06/30/2020 11:11:00 AM EDT [facility] ([facility]) Name Value Range Interpretation Code Description Data Marian rce(s) Supporting Document(s) glucose, fasting 341 mg/dL 70-100 Above high normal Glucose, Fas ting [facility] ([facility]) creatinine for GFR 0.58 mg/dL 0.55-1.30 Creatinine for GF R [facility] ([facility]) blood urea nitrogen 10 mg/dL 7-18 Blood Urea Nitro gen [facility] ([facility]) glomerular filtration rate > 60.0 >58 Glomerula r Filtration Rate [facility] ([facility]) potassium serum 4.1 mEq/L 3.5-5.1 Potassium Serum ATHE NA ([facility]) sodium level 133 mEq/L 136-145 Below low normal Sodium Level ATHE NA ([facility]) carbon dioxide level 26 mEq/L 21-32 Carbon Dioxide Level [facility] ([facility]) anion gap 7 mEq/L 8-16 Below low normal Anion Gap [facility]ONE[facility] ( [facility]) chloride level 100 mEq/L 98-107 Chloride Level [facility] ([facility]) AST/SGOT 33 U/L 7-37 AST/SGOT [facility] ([facility]) calcium level 8.7 mg/dL 8.5-10.1 Calcium Level [facility] ( [facility]) ALT/SGPT 52 U/L 12-78 ALT/SGPT [facility] ([facility]) alkaline phosphatase 89 U/L 45-117 Alkaline Phosph atase [facility] ([facility]) bilirubin,total 0.4 mg/dL 0.2-1.0 Bilirubin,total ATHE ([facility]) albumin/globulin ratio 1.2-2.2 Albumin/globu claudia Ratio [facility]ONEY ([facility]) albumin 3.5 gm/dL 3.2-5.2 Albumin [facility] ([facility]) total protein 6.5 gm/dL 6.4-8.2 Total Protein [facility] ( [facility]) ID Date Data Source [id number] 06/30/2020 11:11:00 AM EDT [place] ([facility]) Name Value Range Interpretation Code Description Data Marian rce(s) Supporting Document(s) white blood count 4.6 10 4.0-10.0 White Blood Count [facility] ([facility]) red blood count 5.09 10 4.00-5.40 Red Blood Count ATHE NA ([facility]) hematocrit 40.4 % 36.0-47.0 Hematocrit [facility] ([facility]) mean corpuscular volume 79.4 fL 80.0-96.0 Below low normal Mean Corpuscular Volume [facility] ([facility]) hemoglobin 12.9 g/dL 12.0-15.5 Hemoglobin [facility] ([facility]) mean corpuscular HGB conc 31.9 g/dL 32.0-36.5 Below low sudhir l Mean Corpuscular HGB Conc [facility] ([facility]) red cell distribution width 14.3 % 11.5-14.5 Red Cell Distribution Width [facility] ([facility]) mean corpuscular hemoglobin 25.3 pg 27.0-33.0 Below low nor mal Mean Corpuscular Hemoglobin [facility] ([facility]) neutrophils % 52.6 % 36.0-66.0 Neutrophils % [facility] ( [facility]) platelet count, automated 146 10 150-450 Below low sudhir l Platelet Count, Automated [facility] ([facility]) lymph % 36.0 % 24.0-44.0 Lymph % [facility] ([facility]) mono % 6.8 % 2.0-8.0 Sharp % [facility] ([facility]) eos % 2.8 % 0.0-3.0 Eos % [facility] ([facility]) immature granulocyte % 0.9 % 0-3.0 Immature Gran ulocyte % [facility] ([facility]) baso % 0.9 % 0.0-1.0 Baso % [facility] ([facility]) nucleated red blood cell % 0.0 % 0-0 Nucleated Red Blood Cell % [facility] ([facility]) neutrophils # 2.4 10 1.5-8.5 Neutrophils # [facility] ( [facility]) mono # 0.3 10 0.0-0.8 Sharp # [facility] ([facility]) lymph # 1.7 10 1.5-5.0 Lymph # [facility] ([facility]) baso # 0.0 10 0.0-0.2 Baso # [facility] ([facility]) eos # 0.1 10 0.0-0.5 Eos # [facility] ([facility]) ID Date Data Source [id number] 06/30/2020 11:11:00 AM EDT [place] ([facility]) Name Value Range Interpretation Code Description Data Marian rce(s) Supporting Document(s) Hemoglobin A1c/Hemoglobin.total in Blood 11.2 % Hemoglobin a1C [place] ([facility]) estimated average glucose 275 mg/dL 60-110 Above high norm al Estimated Average Glucose [place] ([facility]) ID Date Data Source [id number] 06/14/2020 12:00:00 PM EST [facility] ([facility] Name Value Range Interpretation Code Description Data Marian rce(s) Supporting Document(s) Bacteria identified in Abscess by Aerobe culture Laboratory test result Normal (applies to non-numeric results) MEDENT ([facility], ) <content>FULL REPORT IN LAB NOTES [...] [facility]I standards.</content>
<content></content> ID Date Data Source [id number] 06/12/2020 04:08:00 AM EST [facility] Name Value Range Interpretation Code Description Data Marian rce(s) Supporting Document(s) SARS-CoV-2 (COVID 19) NEGATIVE - SARS-CoV-2 (COVID19) [facility] This lab was ordered by [facility] a nd reported by [facility]. ID Date Data Source [id number] 01/22/2020 12:00:00 AM EDT eCW1 ([facility]) Name Value Range Interpretation Code Description Data Marian rce(s) Supporting Document(s) Hemoglobin A1c/Hemoglobin.total in Blood 10.1 HEMOGLOBIN A1c W1 ([facility]) Procedure Social History Code Duration Value Status Description Data Source(s ) Smoking 02/03/2021 12:00:00 AM EDT Unknown if ever smoked comp leted Unknown if ever smoked [facility] ([facility]) Smoking 01/26/2021 12:00:00 AM EDT Unknown if ever smoked comp leted Unknown if ever smoked [facility] ([facility]) Smoking 01/07/2021 12:00:00 AM EDT Unknown if ever smoked comp leted Unknown if ever smoked [facility] ([facility]) Smoking 12/29/2020 12:00:00 AM EDT Unknown if ever smoked comp leted Unknown if ever smoked [facility] ([facility]) Smoking 12/14/2020 12:00:00 AM EDT Unknown if ever smoked comp leted Unknown if ever smoked [facility] ([facility]) Smoking 11/25/2020 12:00:00 AM EDT Unknown if ever smoked comp leted Unknown if ever smoked [facility] ([facility]) Smoking 11/12/2020 12:00:00 AM EDT Unknown if ever smoked comp leted Unknown if ever smoked [facility] ([facility]) Smoking 11/10/2020 12:00:00 AM EDT Unknown if ever smoked comp leted Unknown if ever smoked [facility] ([facility]) Smoking 10/28/2020 12:00:00 AM EDT Unknown if ever smoked comp leted Unknown if ever smoked [facility] ([facility]) Smoking 10/19/2020 12:00:00 AM EDT Unknown if ever smoked comp leted Unknown if ever smoked [facility] ([facility]) Smoking 09/29/2020 12:00:00 AM EDT Unknown if ever smoked comp leted Unknown if ever smoked [facility] ([facility]) Smoking 09/21/2020 12:00:00 AM EDT Unknown if ever smoked comp leted Unknown if ever smoked [facility] ([facility]) Smoking 09/14/2020 12:00:00 AM EDT Unknown if ever smoked comp leted Unknown if ever smoked [facility] ([facility]) Smoking 09/01/2020 12:00:00 AM EDT Unknown if ever smoked comp leted Unknown if ever smoked [facility] ([facility]) Smoking 07/22/2020 12:00:00 AM EDT Unknown if ever smoked comp leted Unknown if ever smoked [facility] ([facility]) Smoking 07/20/2020 12:00:00 AM EDT Unknown if ever smoked comp leted Unknown if ever smoked [facility] ([facility]) Smoking 07/01/2020 12:00:00 AM EDT Unknown if ever smoked comp leted Unknown if ever smoked [facility] ([facility]) Smoking 06/22/2020 12:00:00 AM EDT Unknown if ever smoked comp leted Unknown if ever smoked [facility] ([facility]) Smoking 06/04/2020 12:00:00 AM EST Unknown if ever smoked comp leted Unknown if ever smoked [facility] ([facility]) Smoking 05/25/2020 12:00:00 AM EST Unknown if ever smoked comp leted Unknown if ever smoked [facility] ([facility]) Smoking 05/21/2020 12:00:00 AM EST Unknown if ever smoked comp leted Unknown if ever smoked [facility] ([facility]) Smoking 05/14/2020 12:00:00 AM EST Unknown if ever smoked comp leted Unknown if ever smoked [facility] ([facility]) Smoking 05/07/2020 12:00:00 AM EST Unknown if ever smoked comp leted Unknown if ever smoked [facility] ([facility]) Smoking 04/28/2020 12:00:00 AM EST Unknown if ever smoked comp leted Unknown if ever smoked [facility] ([facility] Smoking 04/27/2020 12:00:00 AM EST Unknown if ever smoked comp leted Unknown if ever smoked [facility] ([facility]) Smoking 04/14/2020 12:00:00 AM EST Unknown if ever smoked comp leted Unknown if ever smoked [facility] ([facility]) Smoking 03/30/2020 12:00:00 AM EST Unknown if ever smoked comp leted Unknown if ever smoked [facility] ([facility]) Smoking 03/16/2020 12:00:00 AM EST Unknown if ever smoked comp leted Unknown if ever smoked [facility] ([facility]) Smoking 03/02/2020 12:00:00 AM EST Unknown if ever smoked comp leted Unknown if ever smoked [facility] ([facility]) Smoking 02/17/2020 12:00:00 AM EST Unknown if ever smoked comp leted Unknown if ever smoked [facility] ([facility]) Smoking 02/03/2020 12:00:00 AM EDT Unknown if ever smoked comp leted Unknown if ever smoked [facility] ([facility]) Smoking 01/22/2020 12:00:00 AM EDT Never Smoker completed Never S moker eCW1 ([facility]) Smoking 01/22/2020 12:00:00 AM EDT Never Smoker completed Never S moker eCW1 ([facility]) Smoking 01/22/2020 12:00:00 AM EDT Never Smoker completed Never S moker eCW1 ([facility]) Smoking 01/22/2020 12:00:00 AM EDT Never Smoker completed Never S moker eCW1 ([facility]) Smoking 01/22/2020 12:00:00 AM EDT Never Smoker completed Never S moker eCW1 ([facility]) Smoking 01/22/2020 12:00:00 AM EDT Never Smoker completed Never S moker eCW1 ([facility]) Smoking 01/22/2020 12:00:00 AM EDT Never Smoker completed Never S moker eCW1 ([facility]) Smoking 01/22/2020 12:00:00 AM EDT Never Smoker completed Never S moker eCW1 ([facility]) Smoking 01/22/2020 12:00:00 AM EDT Never Smoker completed Never S moker eCW1 ([facility]) Smoking 01/22/2020 12:00:00 AM EDT Never Smoker completed Never S moker eCW1 ([facility]) Smoking 01/22/2020 12:00:00 AM EDT Never Smoker completed Never S moker eCW1 ([facility]) Smoking 01/22/2020 12:00:00 AM EDT Never Smoker completed Never S moker eCW1 ([facility]) Smoking 01/22/2020 12:00:00 AM EDT Never Smoker completed Never S moker eCW1 ([facility]) Smoking 01/22/2020 12:00:00 AM EDT Never Smoker completed Never S moker eCW1 ([facility]) Smoking 01/20/2020 12:00:00 AM EDT Unknown if ever smoked comp leted Unknown if ever smoked [facility] ([facility]) Smoking 01/13/2020 12:00:00 AM EDT Unknown if ever smoked comp leted Unknown if ever smoked [facility] ([facility]) Smoking 01/06/2020 12:00:00 AM EDT Unknown if ever smoked comp leted Unknown if ever smoked [facility] ([facility]) Vital Signs ID Date Data Source [id number] Name Value Range Interpretation Code Description Data Source(s) Body temperature 97.1 [degF] 97.1 [degF] MEDENT ([facility]) Body height 67 [in_i] 67 [in_i] MEDENT ([facility]) 5'7" Body weight 245.25 [lb_av] 245.25 [lb_av] MEDEN T ([facility]) Body mass index (BMI) [Ratio] 38.4 kg/m2 38.4 k g/m2 MEDENT ([facility]) Diastolic blood pressure 87 mm[Hg] 87 mm[Hg] TONEY ([facility]) Body height 66 [in_i] 66 [in_i] TONEY ([facility]) Body mass index (BMI) [Ratio] 40.1 kg/m2 40.1 k g/m2 TONEY ([facility]) Systolic blood pressure 123 mm[Hg] 123 mm[Hg] [facility] ([facility]) Body weight 3976 [oz_av] 3976 [oz_av] TONEY ([facility]) Body height 66 [in_i] 66 [in_i] TONEY ([facility]) Diastolic blood pressure 83 mm[Hg] 83 mm[Hg] TONEY ([facility]) Systolic blood pressure 125 mm[Hg] 125 mm[Hg] A [facility] ([facility]) Diastolic blood pressure 83 mm[Hg] 83 mm[Hg] TONEY ([facility]) Body height 66 [in_i] 66 [in_i] TONEY ([facility]) Systolic blood pressure 125 mm[Hg] 125 mm[Hg] A [facility] ([facility]) Diastolic blood pressure 80 mm[Hg] 80 mm[Hg] TONEY ([facility]) Body height 66 [in_i] 66 [in_i] TONEY ([facility]) Body mass index (BMI) [Ratio] 39.9 kg/m2 39.9 k g/m2 [facility] [facility] Systolic blood pressure 121 mm[Hg] 121 mm[Hg] A THENA ([facility]) Body weight 3960 [oz_av] 3960 [oz_av] TONEY ([facility]) Systolic blood pressure 121 mm[Hg] 121 mm[Hg] A THENA ([facility]) Body weight 3960 [oz_av] 3960 [oz_av] TONEY ([facility]) Diastolic blood pressure 80 mm[Hg] 80 mm[Hg] TONEY ([facility]) Body height 66 [in_i] 66 [in_i] TONEY ([facility]) Body mass index (BMI) [Ratio] 39.9 kg/m2 39.9 k g/m2 TONEY ([facility]) Body height 66 [in_i] 66 [in_i] TONEY ([facility]) Diastolic blood pressure 80 mm[Hg] 80 mm[Hg] TONEY ([facility]) Body mass index (BMI) [Ratio] 39.9 kg/m2 39.9 k g/m2 TONEY ([facility]) Systolic blood pressure 121 mm[Hg] 121 mm[Hg] Carmen ANDRADE ([facility]) Body weight 3960 [oz_av] 3960 [oz_av] TONEY ([facility]) Systolic blood pressure 158 mm[Hg] Normal (applies t o non-numeric results) 158 mm[Hg] Accumedic ([facility]) Diastolic blood pressure 90 mm[Hg] Normal (applies to non-numeric results) 90 mm[Hg] Accumedic ([facility]) Body height --lying 90 min Normal (applies to non-nume quang results) 90 min Accumedic ([facility] Respiratory rate 16 min Normal (applies to non-numeric results) 16 min Accumedic ([facility]) Diastolic blood pressure 84 mm[Hg] 84 mm[Hg] TONEY ([facility]) Body height 66 [in_i] 66 [in_i] TONEY ([facility]) Body mass index (BMI) [Ratio] 40.5 kg/m2 40.5 k g/m2 TONEY ([facility]) Systolic blood pressure 121 mm[Hg] 121 mm[Hg] Carmen RICKSA ([facility]) Body weight 4018 [oz_av] 4018 [oz_av] TONEY ([facility]) Diastolic blood pressure 84 mm[Hg] 84 mm[Hg] TONEY ([facility]) Body height 66 [in_i] 66 [in_i] TONEY ([facility]) Body mass index (BMI) [Ratio] 40.5 kg/m2 40.5 k g/m2 TONEY ([facility]) Systolic blood pressure 121 mm[Hg] 121 mm[Hg] A THENA ([facility]) Body weight 4018 [oz_av] 4018 [oz_av] TONEY ([facility]) Diastolic blood pressure 84 mm[Hg] 84 mm[Hg] TONEY ([facility]) Body height 66 [in_i] 66 [in_i] TONEY ([facility]) Body mass index (BMI) [Ratio] 40.5 kg/m2 40.5 k g/m2 TONEY ([facility]) Systolic blood pressure 121 mm[Hg] 121 mm[Hg] A RAMBOA ([facility]) Body weight 4018 [oz_av] 4018 [oz_av] TONEY ([facility]) Diastolic blood pressure 84 mm[Hg] 84 mm[Hg] TONEY ([facility]) Body height 66 [in_i] 66 [in_i] TONEY ([facility]) Body mass index (BMI) [Ratio] 40.5 kg/m2 40.5 k g/m2 TONEY ([facility]) Systolic blood pressure 121 mm[Hg] 121 mm[Hg] A RAMBOA ([facility]) Body weight 4018 [oz_av] 4018 [oz_av] TONEY ([facility]) Body height 66 [in_i] 66 [in_i] TONEY ([facility]) Body height 66 [in_i] 66 [in_i] TONEY ([facility]) Body height 66 [in_i] 66 [in_i] TONEY ([facility]) Body height 66 [in_i] 66 [in_i] TONEY ([facility]) Body height 66 [in_i] 66 [in_i] TONEY ([facility]) Diastolic blood pressure 83 mm[Hg] 83 mm[Hg] TONEY ([facility]) Body height 66 [in_i] 66 [in_i] TONEY ([facility]) Body mass index (BMI) [Ratio] 40 kg/m2 40 kg/ m2 TONEY ([facility]) Systolic blood pressure 116 mm[Hg] 116 mm[Hg] A [facility] ([facility]) Body weight 3970 [oz_av] 3970 [oz_av] TONEY ([facility]) Diastolic blood pressure 83 mm[Hg] 83 mm[Hg] TONEY ([facility]) Body height 66 [in_i] 66 [in_i] TONEY ([facility]) Body mass index (BMI) [Ratio] 40 kg/m2 40 kg/ m2 TONEY ([facility]) Systolic blood pressure 116 mm[Hg] 116 mm[Hg] A [facility] ([facility]) Body weight 3970 [oz_av] 3970 [oz_av] TONEY ([facility]) Diastolic blood pressure 83 mm[Hg] 83 mm[Hg] TONEY ([facility]) Body height 66 [in_i] 66 [in_i] TONEY ([facility]) Body mass index (BMI) [Ratio] 40 kg/m2 40 kg/ m2 TONEY ([facility]) Systolic blood pressure 116 mm[Hg] 116 mm[Hg] A [facility] ([facility]) Body weight 3970 [oz_av] 3970 [oz_av] TONEY ([facility]) Diastolic blood pressure 83 mm[Hg] 83 mm[Hg] TOENY ([facility]) Body height 66 [in_i] 66 [in_i] TONEY ([facility]) Body mass index (BMI) [Ratio] 40 kg/m2 40 kg/ m2 TONEY ([facility]) Systolic blood pressure 116 mm[Hg] 116 mm[Hg] A [facility] ([facility]) Body weight 3970 [oz_av] 3970 [oz_av] TONEY ([facility]) Diastolic blood pressure 83 mm[Hg] 83 mm[Hg] TONEY ([facility]) Body height 66 [in_i] 66 [in_i] TONEY ([facility]) Body mass index (BMI) [Ratio] 40 kg/m2 40 kg/ m2 TONEY ([facility]) Systolic blood pressure 116 mm[Hg] 116 mm[Hg] A THENA ([facility]) Body weight 3970 [oz_av] 3970 [oz_av] TONEY ([facility]) Diastolic blood pressure 83 mm[Hg] 83 mm[Hg] TONEY ([facility]) Body height 66 [in_i] 66 [in_i] TONEY ([facility]) Body mass index (BMI) [Ratio] 40 kg/m2 40 kg/ m2 TONEY ([facility]) Systolic blood pressure 116 mm[Hg] 116 mm[Hg] A THENA ([facility]) Body weight 3970 [oz_av] 3970 [oz_av] TONEY ([facility]) Body mass index (BMI) [Ratio] 39.6 kg/m2 39.6 k g/m2 MEDENT ([facility], ) [place] body weight 130 [lb_av] 130 [lb_av] MEDEN T ([facility], ) Body weight 111.245 kg 111.245 kg [facility] Body surface area Derived from formula 2.18 m2 2.18 m2 MEDENT ([facility], ) Systolic blood pressure 121 mm[Hg] 121 mm[Hg] M EDENT ([facility], ) Diastolic blood pressure 86 mm[Hg] 86 mm[Hg] MEDENT ([facility], ) Body height 66 [in_i] 66 [in_i] MEDENT (Health system, ) 5'6" Body weight 245.25 [lb_av] 245.25 [lb_av] MEDEN T ([facility], ) Body mass index (BMI) [Ratio] 39.6 kg/m2 39.6 k g/m2 MEDENT ([facility], ) [place] body weight 130 [lb_av] 130 [lb_av] MEDEN T ([facility], ) Body weight 111.245 kg 111.245 kg MEDENT ([facility]) Body surface area Derived from formula 2.18 m2 2.18 m2 MEDENT ([facility], ) Heart rate 106 /min 106 /min MEDENT ([facility], ) Body height 66 [in_i] 66 [in_i] ADOLPH (Health system, ) 5'6" Body weight 245.25 [lb_av] 245.25 [lb_av] MEDRANDY Dominguez ([facility], ) Body height 66 [in_i] 66 [in_i] TONEY ([facility]) Body height 66 [in_i] 66 [in_i] TONEY ([facility]) Body height 66 [in_i] 66 [in_i] TONEY ([facility]) Body height 66 [in_i] 66 [in_i] TONEY ([facility]) Body height 66 [in_i] 66 [in_i] TONEY ([facility]) Body height 66 [in_i] 66 [in_i] TONEY ([facility]) Body height 66 [in_i] 66 [in_i] TONEY ([facility]) Body height 66 [in_i] 66 [in_i] TONEY ([facility]) Body height 66 [in_i] 66 [in_i] TONEY ([facility]) Systolic blood pressure 150 mm[Hg] 150 mm[Hg] M SAM ([facility], ) Diastolic blood pressure 82 mm[Hg] 82 mm[Hg] ADOLPH ([facility], ) Body height 66 [in_i] 66 [in_i] [facility]" Body surface area Derived from formula 2.20 m2 2.20 m2 [facility] ([facility], ) Body height 66 [in_i] 66 [in_i] [facility] (Health system, ) 5'6" Body weight 250.00 [lb_av] 250.00 [lb_av] MEDEN T ([facility], ) Body mass index (BMI) [Ratio] 40.3 kg/m2 40.3 k g/m2 [facility] ([facility], ) [place] body weight 130 [lb_av] 130 [lb_av] [facility] Body weight 113.400 kg 113.400 kg [facility] ([facility]) Body weight 250.00 [lb_av] 250.00 [lb_av] [facility] Body mass index (BMI) [Ratio] 40.3 kg/m2 40.3 k g/m2 [facility] ([facility]) [place] body weight 130 [lb_av] 130 [lb_av] [facility] Body weight 113.400 kg 113.400 kg [facility] ([facility]) Body surface area Derived from formula 2.20 m2 2.20 m2 [facility] ([facility]) Diastolic blood pressure 89 mm[Hg] 89 mm[Hg] TONEY ([facility]) Body height 66 [in_i] 66 [in_i] [place] ([facility]) Body mass index (BMI) [Ratio] 40.1 kg/m2 40.1 k g/m2 TONEY ([facility]) Systolic blood pressure 130 mm[Hg] 130 mm[Hg] A [facility] ([facility]) Body weight 3977.6 [oz_av] 3977.6 [oz_av] ATHEN A ([facility]) Systolic blood pressure 130 mm[Hg] 130 mm[Hg] A [facility] ([facility]) Body weight 3977.6 [oz_av] 3977.6 [oz_av] ATHEN A ([facility]) Diastolic blood pressure 89 mm[Hg] 89 mm[Hg] TONEY ([facility]) Body height 66 [in_i] 66 [in_i] TONEY ([facility]) Body mass index (BMI) [Ratio] 40.1 kg/m2 40.1 k g/m2 TONEY ([facility]) Diastolic blood pressure 89 mm[Hg] 89 mm[Hg] TONEY ([facility]) Body height 66 [in_i] 66 [in_i] TONEY ([facility]) Body mass index (BMI) [Ratio] 40.1 kg/m2 40.1 k g/m2 TONEY ([facility]) Systolic blood pressure 130 mm[Hg] 130 mm[Hg] A [facility] ([facility]) Body weight 3977.6 [oz_av] 3977.6 [oz_av] ATHEN A ([facility]) Diastolic blood pressure 89 mm[Hg] 89 mm[Hg] TONEY ([facility]) Body height 66 [in_i] 66 [in_i] TONEY ([facility]) Body mass index (BMI) [Ratio] 40.1 kg/m2 40.1 k g/m2 TONEY ([facility]) Systolic blood pressure 130 mm[Hg] 130 mm[Hg] A [facility] ([facility]) Body weight 3977.6 [oz_av] 3977.6 [oz_av] ATHEN A ([facility]) Diastolic blood pressure 89 mm[Hg] 89 mm[Hg] TONEY ([facility]) Body height 66 [in_i] 66 [in_i] TONEY ([facility]) Body mass index (BMI) [Ratio] 40.1 kg/m2 40.1 k g/m2 TONEY ([facility]) Systolic blood pressure 130 mm[Hg] 130 mm[Hg] A [facility] ([facility]) Body weight 3977.6 [oz_av] 3977.6 [oz_av] ATHEN A ([facility]) Diastolic blood pressure 89 mm[Hg] 89 mm[Hg] TONEY ([facility]) Body height 66 [in_i] 66 [in_i] TONEY ([facility]) Body mass index (BMI) [Ratio] 40.1 kg/m2 40.1 k g/m2 TONEY ([facility]) Systolic blood pressure 130 mm[Hg] 130 mm[Hg] A THENA ([facility]) Body weight 3977.6 [oz_av] 3977.6 [oz_av] ATHEN A ([facility]) Diastolic blood pressure 89 mm[Hg] 89 mm[Hg] TONEY ([facility]) Body height 66 [in_i] 66 [in_i] TONEY ([facility]) Body mass index (BMI) [Ratio] 40.1 kg/m2 40.1 k g/m2 TONEY ([facility]) Systolic blood pressure 130 mm[Hg] 130 mm[Hg] A THENA ([facility]) Body weight 3977.6 [oz_av] 3977.6 [oz_av] ATHEN A ([facility]) Diastolic blood pressure 89 mm[Hg] 89 mm[Hg] TONEY ([facility]) Body height 66 [in_i] 66 [in_i] TONEY ([facility]) Body mass index (BMI) [Ratio] 40.1 kg/m2 40.1 k g/m2 TONEY ([facility]) Systolic blood pressure 130 mm[Hg] 130 mm[Hg] A THENA ([facility]) Body weight 3977.6 [oz_av] 3977.6 [oz_av] ATHEN A ([facility]) Diastolic blood pressure 89 mm[Hg] 89 mm[Hg] TONEY ([facility]) Body height 66 [in_i] 66 [in_i] TONEY ([facility]) Body mass index (BMI) [Ratio] 40.1 kg/m2 40.1 k g/m2 TONEY ([facility]) Systolic blood pressure 130 mm[Hg] 130 mm[Hg] A THENA ([facility]) Body weight 3977.6 [oz_av] 3977.6 [oz_av] ATHEN A ([facility]) Diastolic blood pressure 89 mm[Hg] 89 mm[Hg] TONEY ([facility]) Body height 66 [in_i] 66 [in_i] TONEY ([facility]) Body mass index (BMI) [Ratio] 40.1 kg/m2 40.1 k g/m2 TONEY ([facility]) Systolic blood pressure 130 mm[Hg] 130 mm[Hg] A THENA ([facility]) Body weight 3977.6 [oz_av] 3977.6 [oz_av] ATHEN A ([facility]) Diastolic blood pressure 85 mm[Hg] 85 mm[Hg] MEDENT ([facility]) Systolic blood pressure 131 mm[Hg] 131 mm[Hg] M EDENT ([facility]) Heart rate 87 /min 87 /min MEDENT ([facility], ) Body height 66 [in_i] 66 [in_i] [facility] ([facility]) 5'6" Body weight 249.25 [lb_av] 249.25 [lb_av] [facility] Body mass index (BMI) [Ratio] 40.2 kg/m2 40.2 k g/m2 [facility] ([facility]) [place] body weight 130 [lb_av] 130 [lb_av] [facility] Body weight 113.060 kg 113.060 kg [facility] ([facility]) Body surface area Derived from formula 2.20 m2 2.20 m2 [facility] ([facility]) Body height 66 [in_i] 66 [in_i] [place] ([facility]) Body mass index (BMI) [Ratio] 39.5 kg/m2 39.5 k g/m2 TONEY ([facility]) Body weight 3920 [oz_av] 3920 [oz_av] TONEY ([facility]) Body height 66 [in_i] 66 [in_i] TONEY ([facility]) Body mass index (BMI) [Ratio] 39.5 kg/m2 39.5 k g/m2 TONEY ([facility]) Body weight 3920 [oz_av] 3920 [oz_av] TONEY ([facility]) Body height 66 [in_i] 66 [in_i] TONEY ([facility]) Body mass index (BMI) [Ratio] 39.5 kg/m2 39.5 k g/m2 TONEY ([facility]) Body weight 3920 [oz_av] 3920 [oz_av] TONEY ([facility]) Body height 66 [in_i] 66 [in_i] TONEY ([facility]) Body mass index (BMI) [Ratio] 39.5 kg/m2 39.5 k g/m2 TONEY ([facility]) Body weight 3920 [oz_av] 3920 [oz_av] TONEY ([facility]) Body height 66 [in_i] 66 [in_i] TONEY ([facility]) Body mass index (BMI) [Ratio] 39.5 kg/m2 39.5 k g/m2 TONEY ([facility]) Body weight 3920 [oz_av] 3920 [oz_av] TONEY ([facility]) Body height 66 [in_i] 66 [in_i] TONEY ([facility]) Body mass index (BMI) [Ratio] 39.5 kg/m2 39.5 k g/m2 TONEY ([facility]) Body weight 3920 [oz_av] 3920 [oz_av] TONEY ([facility]) Body height 66 [in_i] 66 [in_i] TONEY ([facility]) Body mass index (BMI) [Ratio] 39.5 kg/m2 39.5 k g/m2 TONEY ([facility]) Body weight 3920 [oz_av] 3920 [oz_av] TONEY ([facility]) Body height 66 [in_i] 66 [in_i] TONEY ([facility]) Body mass index (BMI) [Ratio] 39.5 kg/m2 39.5 k g/m2 TONEY ([facility]) Body weight 3920 [oz_av] 3920 [oz_av] TONEY ([facility]) Body height 66 [in_i] 66 [in_i] TONEY ([facility]) Body mass index (BMI) [Ratio] 39.5 kg/m2 39.5 k g/m2 TONEY ([facility]) Body weight 3920 [oz_av] 3920 [oz_av] TONEY ([facility]) Body height 66 [in_i] 66 [in_i] TONEY ([facility]) Body mass index (BMI) [Ratio] 39.5 kg/m2 39.5 k g/m2 TONEY ([facility]) Body weight 3920 [oz_av] 3920 [oz_av] TONEY ([facility]) Body height 66 [in_i] 66 [in_i] TONEY ([facility]) Body mass index (BMI) [Ratio] 39.5 kg/m2 39.5 k g/m2 TONEY ([facility]) Body weight 3920 [oz_av] 3920 [oz_av] TONEY ([facility]) Diastolic blood pressure 84 mm[Hg] 84 mm[Hg] TONEY ([facility]) Body height 66 [in_i] 66 [in_i] TONEY ([facility]) Body mass index (BMI) [Ratio] 40.1 kg/m2 40.1 k g/m2 TONEY ([facility]) Systolic blood pressure 119 mm[Hg] 119 mm[Hg] A THENA ([facility]) Body weight 3974.4 [oz_av] 3974.4 [oz_av] ATHEN A ([facility]) Body weight 3974.4 [oz_av] 3974.4 [oz_av] ATHEN A ([facility]) Diastolic blood pressure 84 mm[Hg] 84 mm[Hg] TONEY ([facility]) Body height 66 [in_i] 66 [in_i] TONEY ([facility]) Body mass index (BMI) [Ratio] 40.1 kg/m2 40.1 k g/m2 TONEY ([facility]) Systolic blood pressure 119 mm[Hg] 119 mm[Hg] A [facility] ([facility]) Diastolic blood pressure 84 mm[Hg] 84 mm[Hg] TONEY ([facility]) Body height 66 [in_i] 66 [in_i] TONEY ([facility]) Body mass index (BMI) [Ratio] 40.1 kg/m2 40.1 k g/m2 TONEY ([facility]) Systolic blood pressure 119 mm[Hg] 119 mm[Hg] A THENA ([facility]) Body weight 3974.4 [oz_av] 3974.4 [oz_av] ATHEN A ([facility]) Diastolic blood pressure 84 mm[Hg] 84 mm[Hg] TONEY ([facility]) Body height 66 [in_i] 66 [in_i] TONEY ([facility]) Body mass index (BMI) [Ratio] 40.1 kg/m2 40.1 k g/m2 TONEY ([facility]) Systolic blood pressure 119 mm[Hg] 119 mm[Hg] A THENA ([facility]) Body weight 3974.4 [oz_av] 3974.4 [oz_av] ATHEN A ([facility]) Body height 66 [in_i] 66 [in_i] TONEY ([facility]) Body mass index (BMI) [Ratio] 40.1 kg/m2 40.1 k g/m2 TONEY ([facility]) Systolic blood pressure 119 mm[Hg] 119 mm[Hg] A [facility] ([facility]) Body weight 3974.4 [oz_av] 3974.4 [oz_av] ATHEN A ([facility]) Diastolic blood pressure 84 mm[Hg] 84 mm[Hg] TONEY ([facility]) Body mass index (BMI) [Ratio] 40.1 kg/m2 40.1 k g/m2 TONEY ([facility]) Systolic blood pressure 119 mm[Hg] 119 mm[Hg] A [facility] ([facility]) Diastolic blood pressure 84 mm[Hg] 84 mm[Hg] TONEY ([facility]) Body height 66 [in_i] 66 [in_i] TONEY ([facility]) Body weight 3974.4 [oz_av] 3974.4 [oz_av] ATHEN A ([facility]) Systolic blood pressure 119 mm[Hg] 119 mm[Hg] A THENA ([facility]) Body weight 3974.4 [oz_av] 3974.4 [oz_av] ATHEN A ([facility]) Diastolic blood pressure 84 mm[Hg] 84 mm[Hg] TONEY ([facility]) Body height 66 [in_i] 66 [in_i] TONEY ([facility]) Body mass index (BMI) [Ratio] 40.1 kg/m2 40.1 k g/m2 TONEY ([facility]) Diastolic blood pressure 84 mm[Hg] 84 mm[Hg] TONEY ([facility]) Body height 66 [in_i] 66 [in_i] TONEY ([facility]) Body mass index (BMI) [Ratio] 40.1 kg/m2 40.1 k g/m2 TONEY ([facility]) Systolic blood pressure 119 mm[Hg] 119 mm[Hg] A RAMBOA ([facility]) Body weight 3974.4 [oz_av] 3974.4 [oz_av] ATHEN A ([facility]) Diastolic blood pressure 84 mm[Hg] 84 mm[Hg] TONEY ([facility]) Body height 66 [in_i] 66 [in_i] TONEY ([facility]) Body mass index (BMI) [Ratio] 40.1 kg/m2 40.1 k g/m2 TONEY ([facility]) Systolic blood pressure 119 mm[Hg] 119 mm[Hg] A LUPE ([facility]) Body weight 3974.4 [oz_av] 3974.4 [oz_av] ATHEN A ([facility]) Diastolic blood pressure 84 mm[Hg] 84 mm[Hg] TONEY ([facility]) Body height 66 [in_i] 66 [in_i] TONEY ([facility]) Body mass index (BMI) [Ratio] 40.1 kg/m2 40.1 k g/m2 TONEY ([facility]) Systolic blood pressure 119 mm[Hg] 119 mm[Hg] A LUPE ([facility]) Body weight 3974.4 [oz_av] 3974.4 [oz_av] ATHEN A ([facility]) Diastolic blood pressure 84 mm[Hg] 84 mm[Hg] TONEY ([facility]) Body height 66 [in_i] 66 [in_i] TONEY ([facility]) Body mass index (BMI) [Ratio] 40.1 kg/m2 40.1 k g/m2 TONEY ([facility]) Systolic blood pressure 119 mm[Hg] 119 mm[Hg] A RAMBOA ([facility]) Body weight 3974.4 [oz_av] 3974.4 [oz_av] ATHEN A ([facility]) Diastolic blood pressure 84 mm[Hg] 84 mm[Hg] TONEY ([facility]) Body height 66 [in_i] 66 [in_i] TONEY ([facility]) Body mass index (BMI) [Ratio] 40.1 kg/m2 40.1 k g/m2 TONEY ([facility]) Systolic blood pressure 119 mm[Hg] 119 mm[Hg] A RAMBOA ([facility]) Body weight 3974.4 [oz_av] 3974.4 [oz_av] ATHEN A ([facility]) Diastolic blood pressure 84 mm[Hg] 84 mm[Hg] TONEY ([facility]) Body height 66 [in_i] 66 [in_i] TONEY ([facility]) Body mass index (BMI) [Ratio] 40.1 kg/m2 40.1 k g/m2 TONEY ([facility]) Systolic blood pressure 119 mm[Hg] 119 mm[Hg] A LUPE ([facility]) Body weight 3974.4 [oz_av] 3974.4 [oz_av] ATHEN A ([facility]) Body height 67 [in_i] 67 [in_i] MEDENT ([facility] 5'7" Body weight 252.12 [lb_av] 252.12 [lb_av] MEDEN T ([facility] ) Body mass index (BMI) [Ratio] 39.5 kg/m2 39.5 k g/m2 MEDENT ([facility] ) Body temperature 97.3 [degF] 97.3 [degF] MEDENT ([facility]) Body weight 249.50 [lb_av] 249.50 [lb_av] MEDEN T ([facility]) Body height 66 [in_i] 66 [in_i] MEDENT ([facility]) 5'6" Body mass index (BMI) [Ratio] 40.3 kg/m2 40.3 k g/m2 MEDENT ([facility] ) Diastolic blood pressure 90 mm[Hg] 90 mm[Hg] TONEY ([facility]) Body height 66 [in_i] 66 [in_i] TONEY ([facility]) Body mass index (BMI) [Ratio] 40.8 kg/m2 40.8 k g/m2 TONEY ([facility]) Systolic blood pressure 132 mm[Hg] 132 mm[Hg] A [facility] ([facility]) Body weight 4048 [oz_av] 4048 [oz_av] TONEY ([facility]) Body mass index (BMI) [Ratio] 40.8 kg/m2 40.8 k g/m2 TONEY ([facility]) Diastolic blood pressure 90 mm[Hg] 90 mm[Hg] TONEY ([facility]) Systolic blood pressure 132 mm[Hg] 132 mm[Hg] A [facility] ([facility]) Body height 66 [in_i] 66 [in_i] TONEY ([facility]) Body weight 4048 [oz_av] 4048 [oz_av] TONEY ([facility]) Diastolic blood pressure 90 mm[Hg] 90 mm[Hg] TONEY ([facility]) Body height 66 [in_i] 66 [in_i] TONEY ([facility]) Systolic blood pressure 132 mm[Hg] 132 mm[Hg] A [facility] ([facility]) Body mass index (BMI) [Ratio] 40.8 kg/m2 40.8 k g/m2 TONEY ([facility]) Body weight 4048 [oz_av] 4048 [oz_av] TONEY ([facility]) Diastolic blood pressure 90 mm[Hg] 90 mm[Hg] TONEY ([facility]) Body height 66 [in_i] 66 [in_i] TONEY ([facility]) Body mass index (BMI) [Ratio] 40.8 kg/m2 40.8 k g/m2 TONEY ([facility]) Systolic blood pressure 132 mm[Hg] 132 mm[Hg] A [facility] ([facility]) Body weight 4048 [oz_av] 4048 [oz_av] TONEY ([facility]) Body height 66 [in_i] 66 [in_i] [facility] ([facility]) Body mass index (BMI) [Ratio] 40.8 kg/m2 40.8 k g/m2 [facility] ([facility]) Systolic blood pressure 132 mm[Hg] 132 mm[Hg] A [facility] ([facility]) Body weight 4048 [oz_av] 4048 [oz_av] [facility] ([facility]) Diastolic blood pressure 90 mm[Hg] 90 mm[Hg] [facility] ([facility]) Diastolic blood pressure 90 mm[Hg] 90 mm[Hg] [facility] ([facility]) Body height 66 [in_i] 66 [in_i] [facility] ([facility]) Body mass index (BMI) [Ratio] 40.8 kg/m2 40.8 k g/m2 [facility] ([facility]) Systolic blood pressure 132 mm[Hg] 132 mm[Hg] [place] [facility] [facility] Body weight 4048 [oz_av] 4048 [oz_av] TONEY ([facility]) Diastolic blood pressure 90 mm[Hg] 90 mm[Hg] TONEY ([facility]) Body height 66 [in_i] 66 [in_i] TONEY ([facility]) Body mass index (BMI) [Ratio] 40.8 kg/m2 40.8 k g/m2 TONEY ([facility]) Systolic blood pressure 132 mm[Hg] 132 mm[Hg] A THENA ([facility]) Body weight 4048 [oz_av] 4048 [oz_av] TONEY ([facility]) Diastolic blood pressure 90 mm[Hg] 90 mm[Hg] TONEY ([facility]) Body height 66 [in_i] 66 [in_i] TONEY ([facility]) Body mass index (BMI) [Ratio] 40.8 kg/m2 40.8 k g/m2 TONEY ([facility]) Systolic blood pressure 132 mm[Hg] 132 mm[Hg] A THENA ([facility]) Body weight 4048 [oz_av] 4048 [oz_av] TONEY ([facility]) Diastolic blood pressure 90 mm[Hg] 90 mm[Hg] TONEY ([facility]) Body height 66 [in_i] 66 [in_i] TONEY ([facility]) Body mass index (BMI) [Ratio] 40.8 kg/m2 40.8 k g/m2 TONEY ([facility]) Systolic blood pressure 132 mm[Hg] 132 mm[Hg] A THENA ([facility]) Body weight 4048 [oz_av] 4048 [oz_av] TONEY ([facility]) Diastolic blood pressure 90 mm[Hg] 90 mm[Hg] TONEY ([facility]) Body height 66 [in_i] 66 [in_i] TONEY ([facility]) Body mass index (BMI) [Ratio] 40.8 kg/m2 40.8 k g/m2 TONEY ([facility]) Systolic blood pressure 132 mm[Hg] 132 mm[Hg] A THENA ([facility]) Body weight 4048 [oz_av] 4048 [oz_av] TONEY ([facility]) Diastolic blood pressure 90 mm[Hg] 90 mm[Hg] TONEY ([facility]) Body height 66 [in_i] 66 [in_i] TONEY ([facility]) Body mass index (BMI) [Ratio] 40.8 kg/m2 40.8 k g/m2 TONEY ([facility]) Systolic blood pressure 132 mm[Hg] 132 mm[Hg] A THENA ([facility]) Body weight 4048 [oz_av] 4048 [oz_av] TONEY ([facility]) Diastolic blood pressure 90 mm[Hg] 90 mm[Hg] TONEY ([facility]) Body height 66 [in_i] 66 [in_i] TONEY ([facility]) Body mass index (BMI) [Ratio] 40.8 kg/m2 40.8 k g/m2 TONEY ([facility]) Systolic blood pressure 132 mm[Hg] 132 mm[Hg] A THENA ([facility]) Body weight 4048 [oz_av] 4048 [oz_av] TONEY ([facility]) Diastolic blood pressure 90 mm[Hg] 90 mm[Hg] TONEY ([facility]) Body height 66 [in_i] 66 [in_i] TONEY ([facility]) Body mass index (BMI) [Ratio] 40.8 kg/m2 40.8 k g/m2 TONEY ([facility]) Systolic blood pressure 132 mm[Hg] 132 mm[Hg] A [facility] ([facility]) Body weight 4048 [oz_av] 4048 [oz_av] TONEY ([facility]) Systolic blood pressure 132 mm[Hg] 132 mm[Hg] A THENA ([facility]) Body weight 4048 [oz_av] 4048 [oz_av] TONEY ([facility]) Diastolic blood pressure 90 mm[Hg] 90 mm[Hg] TONEY ([facility]) Body height 66 [in_i] 66 [in_i] TONEY ([facility]) Body mass index (BMI) [Ratio] 40.8 kg/m2 40.8 k g/m2 TONEY ([facility]) Body height 0.00 in Normal (applies to non-numeric resu lts) 0.00 in [facility] ([facility]) Body weight Measured 0.00 lbs Normal (applies to n on-numeric results) 0.00 lbs [facility] ([facility]) Diastolic blood pressure 0 mm[Hg] Normal (applies to non-numeric results) 0 mm[Hg] [facility] ([facility]) Body mass index (BMI) [Ratio] 0.00 kg/m2 No rmal (applies to non-numeric results) 0.00 kg/m2 [facility] ([facility]) Systolic blood pressure 0 mm[Hg] Normal (applies t o non-numeric results) 0 mm[Hg] [facility] ([facility]) Body weight 240.00 [lb_av] 240.00 [lb_av] LEENA T ([facility], ) Body height 66 [in_i] 66 [in_i] ADOLPH [facility] 5'6" Body mass index (BMI) [Ratio] 38.7 kg/m2 38.7 k g/m2 ADOLPH ([facility], ) [place] body weight 130 [lb_av] 130 [lb_av] LEENA T ([facility], ) Body surface area Derived from formula 2.16 m2 2.16 m2 ADOLPH ([facility]) Body weight 108.864 kg 108.864 kg [facility] ([facility]) Body height 66 [in_i] 66 [in_i] [facility] ([facility]) 5'6" Body weight 240.00 [lb_av] 240.00 [[facility]_av] [facility] Body mass index (BMI) [Ratio] 38.7 kg/m2 38.7 k g/m2 [facility] ([facility]) [place] body weight 130 [lb_av] 130 [lb_av] [facility] Body weight 108.864 kg 108.864 kg [facility] ([facility]) Body surface area Derived from formula 2.16 m2 2.16 m2 [facility] ([facility]) Diastolic blood pressure 87 mm[Hg] 87 mm[Hg] TONEY ([facility]) Body height 66 [in_i] 66 [in_i] TONEY ([facility]) Systolic blood pressure 127 mm[Hg] 127 mm[Hg] A [facility] ([facility]) Body height 66 [in_i] 66 [in_i] TONEY ([facility]) Diastolic blood pressure 87 mm[Hg] 87 mm[Hg] TONEY ([facility]) Systolic blood pressure 127 mm[Hg] 127 mm[Hg] A [facility] ([facility]) Diastolic blood pressure 87 mm[Hg] 87 mm[Hg] TONEY ([facility]) Body height 66 [in_i] 66 [in_i] TONEY ([facility]) Systolic blood pressure 127 mm[Hg] 127 mm[Hg] A THENA ([facility]) Diastolic blood pressure 87 mm[Hg] 87 mm[Hg] TONEY ([facility]) Body height 66 [in_i] 66 [in_i] TONEY ([facility]) Systolic blood pressure 127 mm[Hg] 127 mm[Hg] A [facility] ([facility]) Diastolic blood pressure 87 mm[Hg] 87 mm[Hg] TONEY ([facility]) Body height 66 [in_i] 66 [in_i] TONEY ([facility]) Systolic blood pressure 127 mm[Hg] 127 mm[Hg] A THENA ([facility]) Diastolic blood pressure 87 mm[Hg] 87 mm[Hg] TONEY ([facility]) Body height 66 [in_i] 66 [in_i] TONEY ([facility]) Systolic blood pressure 127 mm[Hg] 127 mm[Hg] A THENA ([facility]) Diastolic blood pressure 87 mm[Hg] 87 mm[Hg] TONEY ([facility]) Body height 66 [in_i] 66 [in_i] TONEY ([facility]) Systolic blood pressure 127 mm[Hg] 127 mm[Hg] A THENA ([facility]) Diastolic blood pressure 87 mm[Hg] 87 mm[Hg] TONEY ([facility]) Body height 66 [in_i] 66 [in_i] TONEY ([facility]) Systolic blood pressure 127 mm[Hg] 127 mm[Hg] A THENA ([facility]) Diastolic blood pressure 87 mm[Hg] 87 mm[Hg] TONEY ([facility]) Body height 66 [in_i] 66 [in_i] TONEY ([facility]) Systolic blood pressure 127 mm[Hg] 127 mm[Hg] A THENA ([facility]) Diastolic blood pressure 87 mm[Hg] 87 mm[Hg] TONEY ([facility]) Body height 66 [in_i] 66 [in_i] TONEY ([facility]) Systolic blood pressure 127 mm[Hg] 127 mm[Hg] A THENA ([facility]) Diastolic blood pressure 87 mm[Hg] 87 mm[Hg] TONEY ([facility]) Body height 66 [in_i] 66 [in_i] TONEY ([facility]) Systolic blood pressure 127 mm[Hg] 127 mm[Hg] A THENA ([facility]) Diastolic blood pressure 87 mm[Hg] 87 mm[Hg] TONEY ([facility]) Body height 66 [in_i] 66 [in_i] TONEY ([facility]) Systolic blood pressure 127 mm[Hg] 127 mm[Hg] A [facility]) Diastolic blood pressure 87 mm[Hg] 87 mm[Hg] TONEY ([facility]) Body height 66 [in_i] 66 [in_i] TONEY ([facility]) Systolic blood pressure 127 mm[Hg] 127 mm[Hg] A [facility] ([facility]) Diastolic blood pressure 87 mm[Hg] 87 mm[Hg] TONEY ([facility]) Body height 66 [in_i] 66 [in_i] TONEY ([facility]) Systolic blood pressure 127 mm[Hg] 127 mm[Hg] A THENA ([facility]) Diastolic blood pressure 87 mm[Hg] 87 mm[Hg] TONEY ([facility]) Body height 66 [in_i] 66 [in_i] TONEY ([facility]) Systolic blood pressure 127 mm[Hg] 127 mm[Hg] A [facility] ([facility]) Diastolic blood pressure 87 mm[Hg] 87 mm[Hg] TONEY ([facility]) Body height 66 [in_i] 66 [in_i] TONEY ([facility]) Systolic blood pressure 127 mm[Hg] 127 mm[Hg] A THENA ([facility]) Body height 0.00 in Normal (applies to non-numeric resu lts) 0.00 in [facility] ([facility]) Body weight Measured 0.00 lbs Normal (applies to n on-numeric results) 0.00 lbs [facility] ([facility]) Body mass index (BMI) [Ratio] 0.00 kg/m2 No rmal (applies to non-numeric results) 0.00 kg/m2 [facility] ([facility]) Systolic blood pressure 0 mm[Hg] Normal (applies t o non-numeric results) 0 mm[Hg] [facility] ([facility]) Diastolic blood pressure 0 mm[Hg] Normal (applies to non-numeric results) 0 mm[Hg] [facility] ([facility]) Body height 66 [in_i] 66 [in_i] ADOLPH ([facility]) 5'6" Body weight 240.00 [lb_av] 240.00 [lb_av] MEDEN T ([facility]) Body mass index (BMI) [Ratio] 38.7 kg/m2 38.7 k g/m2 [facility] ([facility]) [place] body weight 130 [lb_av] 130 [lb_av] MEDEN T ([facility]) Body weight 108.864 kg 108.864 kg MEDENT ([facility]) Body surface area Derived from formula 2.16 m2 2.16 m2 [facility] ([facility]) Body surface area Derived from formula 2.16 m2 2.16 m2 [facility] ([facility]) Body height 66 [in_i] 66 [in_i] [facility] 5'6" Body weight 240.00 [lb_av] 240.00 [lb_av] MEDEN T ([facility]) Body mass index (BMI) [Ratio] 38.7 kg/m2 38.7 k g/m2 [facility] [place] body weight 130 [lb_av] 130 [lb_av] MEDEN T ([facility]) Body weight 108.864 kg 108.864 kg [facility] ([facility]) Body height 0.00 in Normal (applies to non-numeric resu lts) 0.00 in [facility] ([facility]) Body weight Measured 0.00 lbs Normal (applies to n on-numeric results) 0.00 lbs [facility] ([facility]) Body mass index (BMI) [Ratio] 0.00 kg/m2 No rmal (applies to non-numeric results) 0.00 kg/m2 [facility] ([facility]) Systolic blood pressure 0 mm[Hg] Normal (applies t o non-numeric results) 0 mm[Hg] [facility] ([facility]) Diastolic blood pressure 0 mm[Hg] Normal (applies to non-numeric results) 0 mm[Hg] [facility] ([facility]) Body height 0.00 in Normal (applies to non-numeric resu lts) 0.00 in [facility] ([facility]) Body weight Measured 0.00 lbs Normal (applies to n on-numeric results) 0.00 lbs [facility] ([facility]) Body mass index (BMI) [Ratio] 0.00 kg/m2 No rmal (applies to non-numeric results) 0.00 kg/m2 [facility] ([facility]) Systolic blood pressure 0 mm[Hg] Normal (applies t o non-numeric results) 0 mm[Hg] [facility] ([facility]) Diastolic blood pressure 0 mm[Hg] Normal (applies to non-numeric results) 0 mm[Hg] [facility] ([facility]) Body height 0.00 in Normal (applies to non-numeric resu lts) 0.00 in [facility] ([facility] Body weight Measured 0.00 lbs Normal (applies to n on-numeric results) 0.00 lbs [facility] ([facility]) Body mass index (BMI) [Ratio] 0.00 kg/m2 No rmal (applies to non-numeric results) [facility].00 [facility] Systolic blood pressure 0 mm[Hg] Normal (applies t o non-numeric results) 0 mm[Hg] [facility] ([facility]) Diastolic blood pressure 0 mm[Hg] Normal (applies to non-numeric results) 0 mm[Hg] [facility] ([facility]) Body weight 251.4 [lb_av] 251.4 [lb_av] eCW1 ([facility]) Body height 67 [in_i] 67 [in_i] eCW1 ([facility]) Body mass index (BMI) [Ratio] 39.37 kg/m2 39.37 kg/m2 eCW1 ([facility]) Heart rate 117 /min 117 /min eCW1 ([facility]) Respiratory rate 18 /min 18 /min eCW1 ([facility]) Body temperature 96.9 [degF] 96.9 [degF] eCW1 ( [facility]) Systolic blood pressure 132 mm[Hg] 132 mm[Hg] e CW1 ([facility]) Diastolic blood pressure 80 mm[Hg] 80 mm[Hg] eCW1 ([facility]) Body height 0.00 in Normal (applies to non-numeric resu lts) 0.00 in [facility] ([facility]) Body weight Measured 0.00 lbs Normal (applies to n on-numeric results) 0.00 lbs [facility] ([facility]) Body mass index (BMI) [Ratio] 0.00 kg/m2 No rmal (applies to non-numeric results) 0.00 kg/m2 [facility] ([facility]) Systolic blood pressure 0 mm[Hg] Normal (applies t o non-numeric results) 0 mm[Hg] [facility] ([facility]) Diastolic blood pressure 0 mm[Hg] Normal (applies to non-numeric results) 0 mm[Hg] [facility] ([facility]) Patient Treatment Plan of Care Planned Activity Planned Date Details Description Data Source (s) Mis. Devices - 03/01/2020 12:00:00 AM EST eCW1 ([facility]) Misc. Devices - 03/01/2020 12:00:00 AM EST eCW1 ([facility]) Misc. Devices - 03/01/2020 12:00:00 AM EST eCW1 ([facility]) Misc. Devices - 03/01/2020 12:00:00 AM EST eCW1 ([facility]) Misc. Devices - 03/01/2020 12:00:00 AM EST eCW1 ([facility]) Misc. Devices - 03/01/2020 12:00:00 AM EST eCW1 ([facility]) Sucralfate 1000 MG Oral Tablet TONEY ([facility]) Ranitidine 150 MG Oral Tablet TONEY ([facility]) Prazosin 1 MG Oral Capsule A THENA ([facility]) pantoprazole 40 MG Delayed Release Oral Tablet TONEY ([facility]) Ondansetron 4 MG Oral Tablet TONEY ([facility]) Ondansetron 8 MG Disintegrating Oral Tablet TONEY ([facility]) NITROFURANTOIN, MACROCRYSTALS 25 MG / Ni trofurantoin, Monohydrate 75 MG Oral Capsule TONEY ([facility]) nitrofurantoin 100 mg tablet Take by oral route. TONEY ([facility]) Ibuprofen 200 MG Oral Capsule TONEY ([facility]) Fluconazole 150 MG Oral Tablet TONEY ([facility]) dapagliflozin 10 MG Oral Tablet [Farxiga] TONEY ([facility]) Famotidine 20 MG Oral Tablet TONEY ([facility]) doxycycline hyclate 100 MG Oral Capsule TONEY ([facility]) Deblitane 0.35 mg tablet TAKE ONE TABLET BY MOUTH EVERY DAY TONEY ([facility]) Clonidine Hydrochloride 0.1 MG Oral Tablet TONEY ([facility]) Clindamycin 150 MG Oral Capsule TONEY ([facility]) Ciprofloxacin 500 MG Oral Tablet TONEY ([facility]) Cephalexin 500 MG Oral Capsule TONEY ([facility]) celecoxib 100 MG Oral Capsule TONEY ([facility]) 24 HR Bupropion Hydrochloride 450 MG Extended Release Oral Tablet TONEY ([facility]) 24 HR Bupropion Hydrochloride 150 MG Extended Release Oral Tablet TONEY ([facility]) Amoxicillin 875 MG / Clavulanate 125 MG Oral Tablet TONEY ([facility]) venlafaxine 75 MG Oral Tablet TONEY ([facility]) Trulicity 3 mg/0.5 mL subcutaneous pen injector TONEY ([facility]) 0.5 ML dulaglutide 1.5 MG/ML Auto-Injector [Trulicity] TONEY ([facility]) tramadol hydrochloride 50 MG Oral Tablet TONEY ([facility]) Sumatriptan 50 MG Oral Tablet TONEY ([facility]) Sulfamethoxazole 800 MG / Trimethoprim 160 MG Oral Tablet TONEY ([facility]) Sucralfate 1000 MG Oral Tablet TONEY ([facility]) Ranitidine 150 MG Oral Tablet TONEY ([facility]) Prazosin 1 MG Oral Capsule A THENA ([facility]) pantoprazole 40 MG Delayed Release Oral Tablet TONEY ([facility]) Ondansetron 4 MG Oral Tablet TONEY ([facility]) Ondansetron 8 MG Disintegrating Oral Tablet TONEY ([facility]) NITROFURANTOIN, MACROCRYSTALS 25 MG / Ni trofurantoin, Monohydrate 75 MG Oral Capsule TONEY ([facility]) nitrofurantoin 100 mg tablet Take by oral route. TONEY ([facility]) Ibuprofen 200 MG Oral Capsule TONEY ([facility]) Fluconazole 150 MG Oral Tablet TONEY ([facility]) dapagliflozin 10 MG Oral Tablet [Farxiga] TONEY ([facility]) Famotidine 20 MG Oral Tablet TONEY ([facility]) doxycycline hyclate 100 MG Oral Capsule TONEY ([facility]) Deblitane 0.35 mg tablet TAKE ONE TABLET BY MOUTH EVERY DAY TONEY ([facility]) Clonidine Hydrochloride 0.1 MG Oral Tablet TONEY ([facility]) Clindamycin 150 MG Oral Capsule TONEY ([facility]) Ciprofloxacin 500 MG Oral Tablet TONEY ([facility]) Cephalexin 500 MG Oral Capsule TONEY ([facility]) celecoxib 100 MG Oral Capsule TONEY ([facility]) 24 HR Bupropion Hydrochloride 450 MG Extended Release Oral Tablet TONEY ([facility]) 24 HR Bupropion Hydrochloride 150 MG Extended Release Oral Tablet TONEY ([facility]) Amoxicillin 875 MG / Clavulanate 125 MG Oral Tablet TONEY ([facility]) venlafaxine 75 MG Oral Tablet TONEY ([facility]) Trulicity 3 mg/0.5 mL subcutaneous pen injector TONEY ([facility]) 0.5 ML dulaglutide 3 MG/ML Auto-Injector [Trulicity] TONEY ([facility]) tramadol hydrochloride 50 MG Oral Tablet TONEY ([facility]) Sumatriptan 50 MG Oral Tablet TONEY ([facility]) Sulfamethoxazole 800 MG / Trimethoprim 160 MG Oral Tablet TONEY ([facility]) Sucralfate 1000 MG Oral Tablet TONEY ([facility]) Ranitidine 150 MG Oral Tablet TONEY ([facility]) Prazosin 1 MG Oral Capsule A THENA ([facility]) pantoprazole 40 MG Delayed Release Oral Tablet TONEY ([facility]) Ondansetron 4 MG Oral Tablet TONEY ([facility]) Ondansetron 8 MG Disintegrating Oral Tablet TONEY ([facility]) NITROFURANTOIN, MACROCRYSTALS 25 MG / Ni trofurantoin, Monohydrate 75 MG Oral Capsule TONEY ([facility]) nitrofurantoin 100 mg tablet Take by oral route. TONEY ([facility]) Ibuprofen 200 MG Oral Capsule TONEY ([facility]) Fluconazole 150 MG Oral Tablet TONEY ([facility]) dapagliflozin 10 MG Oral Tablet [Farxiga] TONEY ([facility]) Famotidine 20 MG Oral Tablet TONEY ([facility]) doxycycline hyclate 100 MG Oral Capsule TONEY ([facility]) Deblitane 0.35 mg tablet TAKE ONE TABLET BY MOUTH EVERY DAY TONEY ([facility]) Clonidine Hydrochloride 0.1 MG Oral Tablet TONEY ([facility]) Clindamycin 150 MG Oral Capsule TONEY ([facility]) Ciprofloxacin 500 MG Oral Tablet TONEY ([facility]) Cephalexin 500 MG Oral Capsule TONEY ([facility]) celecoxib 100 MG Oral Capsule TONEY ([facility]) 24 HR Bupropion Hydrochloride 450 MG Extended Release Oral Tablet TONEY ([facility]) 24 HR Bupropion Hydrochloride 150 MG Extended Release Oral Tablet TONEY ([facility]) Amoxicillin 875 MG / Clavulanate 125 MG Oral Tablet TONEY ([facility]) venlafaxine 75 MG Oral Tablet TONEY ([facility]) Trulicity 3 mg/0.5 mL subcutaneous pen injector TONEY ([facility]) 0.5 ML dulaglutide 3 MG/ML Auto-Injector [Trulicity] TONEY ([facility]) tramadol hydrochloride 50 MG Oral Tablet TONEY ([facility]) Sumatriptan 50 MG Oral Tablet TONEY ([facility]) Sulfamethoxazole 800 MG / Trimethoprim 160 MG Oral Tablet TONEY ([facility]) Sucralfate 1000 MG Oral Tablet TONEY ([facility]) Ranitidine 150 MG Oral Tablet TONEY ([facility]) Prazosin 1 MG Oral Capsule A THENA ([facility]) pantoprazole 40 MG Delayed Release Oral Tablet TONEY ([facility]) Ondansetron 4 MG Oral Tablet TONEY ([facility]) 24 HR Bupropion Hydrochloride 150 MG Extended Release Oral Tablet TONEY ([facility]) Amoxicillin 875 MG / Clavulanate 125 MG Oral Tablet TONEY ([facility]) venlafaxine 75 MG Oral Tablet TONEY ([facility]) 0.5 ML dulaglutide 3 MG/ML Auto-Injector [Trulicity] TONEY ([facility]) 0.5 ML dulaglutide 1.5 MG/ML Auto-Injector [Trulicity] TONEY ([facility]) tramadol hydrochloride 50 MG Oral Tablet TONEY ([facility]) Sumatriptan 50 MG Oral Tablet TONEY ([facility]) Sulfamethoxazole 800 MG / Trimethoprim 160 MG Oral Tablet TONEY ([facility]) Sucralfate 1000 MG Oral Tablet TONEY ([facility]) Ranitidine 150 MG Oral Tablet TONEY ([facility]) Prazosin 1 MG Oral Capsule A THENA ([facility]) pantoprazole 40 MG Delayed Release Oral Tablet TONEY ([facility]) Ondansetron 4 MG Oral Tablet TONEY ([facility]) nitrofurantoin 100 mg tablet Take by oral route. TONEY ([facility]) Fluconazole 150 MG Oral Tablet TONEY ([facility]) dapagliflozin 10 MG Oral Tablet [Farxiga] TONEY ([facility]) Famotidine 20 MG Oral Tablet TONEY ([facility]) doxycycline hyclate 100 MG Oral Capsule TONEY ([facility]) Deblitane 0.35 mg tablet TAKE ONE TABLET BY MOUTH EVERY DAY TONEY ([facility]) Clonidine Hydrochloride 0.1 MG Oral Tablet TONEY ([facility]) Clindamycin 150 MG Oral Capsule TONEY ([facility]) Ciprofloxacin 500 MG Oral Tablet TONEY ([facility]) Cephalexin 500 MG Oral Capsule TONEY ([facility]) 24 HR Bupropion Hydrochloride 450 MG Extended Release Oral Tablet TONEY ([facility]) 24 HR Bupropion Hydrochloride 150 MG Extended Release Oral Tablet TONEY ([facility]) Amoxicillin 875 MG / Clavulanate 125 MG Oral Tablet TONEY ([facility]) 0.5 ML dulaglutide 3 MG/ML Auto-Injector [Trulicity] TONEY ([facility]) 0.5 ML dulaglutide 1.5 MG/ML Auto-Injector [Trulicity] TONEY ([facility]) tramadol hydrochloride 50 MG Oral Tablet TONEY ([facility]) Sumatriptan 50 MG Oral Tablet TONEY ([facility]) Sulfamethoxazole 800 MG / Trimethoprim 160 MG Oral Tablet TONEY ([facility]) Sucralfate 1000 MG Oral Tablet TONEY ([facility]) Ranitidine 150 MG Oral Tablet TONEY ([facility]) venlafaxine 75 MG Oral Tablet TONEY ([facility]) Trulicity 3 mg/0.5 mL subcutaneous pen injector TONEY ([facility]) 0.5 ML dulaglutide 3 MG/ML Auto-Injector [Trulicity] TONEY ([facility]) 0.5 ML dulaglutide 1.5 MG/ML Auto-Injector [Trulicity] TONEY ([facility]) tramadol hydrochloride 50 MG Oral Tablet TONEY ([facility]) Sumatriptan 50 MG Oral Tablet TONEY ([facility]) Sulfamethoxazole 800 MG / Trimethoprim 160 MG Oral Tablet TONEY ([facility]) Sucralfate 1000 MG Oral Tablet TONEY ([facility]) Ranitidine 150 MG Oral Tablet TONEY ([facility]) Prazosin 1 MG Oral Capsule A THENA ([facility]) pantoprazole 40 MG Delayed Release Oral Tablet TONYE ([facility]) Ondansetron 4 MG Oral Tablet TONEY ([facility]) Ondansetron 8 MG Disintegrating Oral Tablet TONEY ([facility]) NITROFURANTOIN, MACROCRYSTALS 25 MG / Ni trofurantoin, Monohydrate 75 MG Oral Capsule TONEY ([facility]) nitrofurantoin 100 mg tablet Take by oral route. TONEY ([facility]) Ibuprofen 200 MG Oral Capsule TONEY ([facility]) Fluconazole 150 MG Oral Tablet TONEY ([facility]) dapagliflozin 10 MG Oral Tablet [Farxiga] TONEY ([facility]) Famotidine 20 MG Oral Tablet TONEY ([facility]) doxycycline hyclate 100 MG Oral Capsule TONEY ([facility]) Deblitane 0.35 mg tablet TAKE ONE TABLET BY MOUTH EVERY DAY TONEY ([facility]) Clonidine Hydrochloride 0.1 MG Oral Tablet TONEY ([facility]) Clindamycin 150 MG Oral Capsule TONEY ([facility]) Ciprofloxacin 500 MG Oral Tablet TONEY ([facility]) Cephalexin 500 MG Oral Capsule TONEY ([facility]) celecoxib 100 MG Oral Capsule TONEY ([facility]) 24 HR Bupropion Hydrochloride 450 MG Extended Release Oral Tablet TONEY ([facility]) 24 HR Bupropion Hydrochloride 150 MG Extended Release Oral Tablet TONEY ([facility]) Amoxicillin 875 MG / Clavulanate 125 MG Oral Tablet TONEY ([facility]) venlafaxine 75 MG Oral Tablet TONEY ([facility]) 0.5 ML dulaglutide 3 MG/ML Auto-Injector [Trulicity] TONEY ([facility]) 0.5 ML dulaglutide 1.5 MG/ML Auto-Injector [Trulicity] TONEY ([facility]) tramadol hydrochloride 50 MG Oral Tablet TONEY ([facility]) Sumatriptan 50 MG Oral Tablet TONEY ([facility]) Sulfamethoxazole 800 MG / Trimethoprim 160 MG Oral Tablet TONEY ([facility]) Sucralfate 1000 MG Oral Tablet TONEY ([facility]) Ranitidine 150 MG Oral Tablet TONEY ([facility]) Prazosin 1 MG Oral Capsule A THENA ([facility]) pantoprazole 40 MG Delayed Release Oral Tablet [facility]ONEY ([facility]) Ondansetron 4 MG Oral Tablet TONEY ([facility]) Ondansetron 8 MG Disintegrating Oral Tablet TONEY ([facility]) NITROFURANTOIN, MACROCRYSTALS 25 MG / Ni trofurantoin, Monohydrate 75 MG Oral Capsule TONEY ([facility]) nitrofurantoin 100 mg tablet Take by oral route. TONEY ([facility]) Ibuprofen 200 MG Oral Capsule TONEY ([facility]) Fluconazole 150 MG Oral Tablet TONEY ([facility]) dapagliflozin 10 MG Oral Tablet [Farxiga] TONEY ([facility]) Famotidine 20 MG Oral Tablet [facility] ([facility]) doxycycline hyclate 100 MG Oral Capsule TONEY ([facility]) Deblitane 0.35 mg tablet TAKE ONE TABLET BY MOUTH EVERY DAY [facility] ([facility]) Clonidine Hydrochloride 0.1 MG Oral Tablet TONEY ([facility]) Clindamycin 150 MG Oral Capsule TONEY ([facility]) Ciprofloxacin 500 MG Oral Tablet TONEY ([facility]) Cephalexin 500 MG Oral Capsule TONEY ([facility]) celecoxib 100 MG Oral Capsule TONEY ([facility]) 24 HR Bupropion Hydrochloride 450 MG Extended Release Oral Tablet [facility] ([facility]) 24 HR Bupropion Hydrochloride 150 MG Extended Release Oral Tablet [facility] ([facility]) Amoxicillin 875 MG / Clavulanate 125 MG Oral Tablet [facility]ONEY ([facility]) venlafaxine 75 MG Oral Tablet [facility]ONEY ([facility]) 0.5 ML dulaglutide 3 MG/ML Auto-Injector [Trulicity] TONEY ([facility]) 0.5 ML dulaglutide 1.5 MG/ML Auto-Injector [Trulicity] TONEY ([facility]) tramadol hydrochloride 50 MG Oral Tablet [facility]ONEY ([facility]) Sumatriptan 50 MG Oral Tablet [facility]ONE[facility] ([facility]) Sulfamethoxazole 800 MG / Trimethoprim 160 MG Oral Tablet [facility] ([facility]) Prazosin 1 MG Oral Capsule A THENA ([facility]) pantoprazole 40 MG Delayed Release Oral Tablet [facility]ONE[facility] ([facility]) Ondansetron 4 MG Oral Tablet TONEY ([facility]) nitrofurantoin 100 mg tablet Take by oral route. TONEY ([facility]) Fluconazole 150 MG Oral Tablet TONEY ([facility]) dapagliflozin 10 MG Oral Tablet [Farxiga] TNOEY ([facility]) Famotidine 20 MG Oral Tablet TONEY ([facility]) doxycycline hyclate 100 MG Oral Capsule TONEY ([facility]) Deblitane 0.35 mg tablet TAKE ONE TABLET BY MOUTH EVERY DAY [facility] ([facility]) Clonidine Hydrochloride 0.1 MG Oral Tablet TONEY ([facility]) Clindamycin 150 MG Oral Capsule TONEY ([facility]) Ciprofloxacin 500 MG Oral Tablet TONEY ([facility]) Cephalexin 500 MG Oral Capsule TONEY ([facility]) 24 HR Bupropion Hydrochloride 450 MG Extended Release Oral Tablet TONEY ([facility]) 24 HR Bupropion Hydrochloride 150 MG Extended Release Oral Tablet TONEY ([facility]) Amoxicillin 875 MG / Clavulanate 125 MG Oral Tablet TONEY ([facility]) venlafaxine 75 MG Oral Tablet TONEY ([facility]) 0.5 ML dulaglutide 3 MG/ML Auto-Injector [Trulicity] TONEY ([facility]) 0.5 ML dulaglutide 1.5 MG/ML Auto-Injector [Trulicity] TONEY ([facility]) tramadol hydrochloride 50 MG Oral Tablet TONEY ([facility]) Sumatriptan 50 MG Oral Tablet TONEY ([facility]) Sulfamethoxazole 800 MG / Trimethoprim 160 MG Oral Tablet TONEY ([facility]) Sucralfate 1000 MG Oral Tablet TONEY ([facility]) Ranitidine 150 MG Oral Tablet TONEY ([facility]) Prazosin 1 MG Oral Capsule A THENA ([facility]) pantoprazole 40 MG Delayed Release Oral Tablet TONEY ([facility]) Ondansetron 4 MG Oral Tablet TONEY ([facility]) nitrofurantoin 100 mg tablet Take by oral route. TONEY ([facility]) Fluconazole 150 MG Oral Tablet TONEY ([facility]) dapagliflozin 10 MG Oral Tablet [Farxiga] TONEY ([facility]) Famotidine 20 MG Oral Tablet TONEY ([facility]) doxycycline hyclate 100 MG Oral Capsule TONEY ([facility]) Deblitane 0.35 mg tablet TAKE ONE TABLET BY MOUTH EVERY DAY TONEY ([facility]) Clonidine Hydrochloride 0.1 MG Oral Tablet TONEY ([facility]) Clindamycin 150 MG Oral Capsule TONEY ([facility]) Ciprofloxacin 500 MG Oral Tablet TONEY ([facility]) Cephalexin 500 MG Oral Capsule TONEY ([facility]) 24 HR Bupropion Hydrochloride 450 MG Extended Release Oral Tablet TONEY ([facility]) 24 HR Bupropion Hydrochloride 150 MG Extended Release Oral Tablet TONEY ([facility]) Amoxicillin 875 MG / Clavulanate 125 MG Oral Tablet TONEY ([facility]) Insulin Glargine 100 UNT/ML Injectable Solution [facility] venlafaxine 75 MG Oral Tablet TONEY ([facility]) 0.5 ML dulaglutide 3 MG/ML Auto-Injector [Trulicity] TONEY ([facility]) 0.5 ML dulaglutide 1.5 MG/ML Auto-Injector [Trulicity] TONEY ([facility]) tramadol hydrochloride 50 MG Oral Tablet TONEY ([facility]) Sumatriptan 50 MG Oral Tablet TONEY ([facility]) Sulfamethoxazole 800 MG / Trimethoprim 160 MG Oral Tablet TONEY ([facility]) Sucralfate 1000 MG Oral Tablet TONEY ([facility]) Ranitidine 150 MG Oral Tablet TONEY ([facility]) Prazosin 1 MG Oral Capsule A THENA ([facility]) pantoprazole 40 MG Delayed Release Oral Tablet TONEY ([facility]) Ondansetron 4 MG Oral Tablet TONEY ([facility]) Fluconazole 150 MG Oral Tablet TONEY ([facility]) dapagliflozin 10 MG Oral Tablet [Farxiga] TONEY ([facility]) Famotidine 20 MG Oral Tablet TONEY ([facility]) doxycycline hyclate 100 MG Oral Capsule TONEY ([facility]) Deblitane 0.35 mg tablet TAKE ONE TABLET BY MOUTH EVERY DAY TONEY ([facility]) Clonidine Hydrochloride 0.1 MG Oral Tablet TONEY ([facility]) Clindamycin 150 MG Oral Capsule TONEY ([facility]) Ciprofloxacin 500 MG Oral Tablet TONEY ([facility]) Cephalexin 500 MG Oral Capsule TONEY ([facility]) 24 HR Bupropion Hydrochloride 450 MG Extended Release Oral Tablet TONEY ([facility]) 24 HR Bupropion Hydrochloride 150 MG Extended Release Oral Tablet TONEY ([facility]) Amoxicillin 875 MG / Clavulanate 125 MG Oral Tablet TONEY ([facility]) Ondansetron 8 MG Disintegrating Oral Tablet TONEY ([facility]) NITROFURANTOIN, MACROCRYSTALS 25 MG / Ni trofurantoin, Monohydrate 75 MG Oral Capsule TONEY ([facility]) nitrofurantoin 100 mg tablet Take by oral route. TONEY ([facility]) Ibuprofen 200 MG Oral Capsule TONEY ([facility]) Fluconazole 150 MG Oral Tablet TONEY ([facility]) dapagliflozin 10 MG Oral Tablet [Farxiga] TONEY ([facility]) Famotidine 20 MG Oral Tablet TONEY ([facility]) doxycycline hyclate 100 MG Oral Capsule TONEY ([facility]) Deblitane 0.35 mg tablet TAKE ONE TABLET BY MOUTH EVERY DAY TONEY ([facility]) Clonidine Hydrochloride 0.1 MG Oral Tablet TONEY ([facility]) Clindamycin 150 MG Oral Capsule TONEY ([facility]) Ciprofloxacin 500 MG Oral Tablet TONEY ([facility]) Cephalexin 500 MG Oral Capsule TONEY ([facility]) celecoxib 100 MG Oral Capsule TONEY ([facility]) 24 HR Bupropion Hydrochloride 450 MG Extended Release Oral Tablet TONEY ([facility]) 24 HR Bupropion Hydrochloride 150 MG Extended Release Oral Tablet TONEY ([facility]) Amoxicillin 875 MG / Clavulanate 125 MG Oral Tablet TONEY ([facility]) venlafaxine 75 MG Oral Tablet TONEY ([facility]) 0.5 ML dulaglutide 3 MG/ML Auto-Injector [Trulicity] TONEY ([facility]) 0.5 ML dulaglutide 1.5 MG/ML Auto-Injector [Trulicity] TONEY ([facility]) tramadol hydrochloride 50 MG Oral Tablet TONEY ([facility]) Sumatriptan 50 MG Oral Tablet TONEY ([facility]) Sulfamethoxazole 800 MG / Trimethoprim 160 MG Oral Tablet TONEY ([facility]) Sucralfate 1000 MG Oral Tablet TONEY ([facility]) Ranitidine 150 MG Oral Tablet TONEY ([facility]) Prazosin 1 MG Oral Capsule A THENA ([facility]) pantoprazole 40 MG Delayed Release Oral Tablet TONEY ([facility]) Ondansetron 4 MG Oral Tablet TONEY ([facility]) nitrofurantoin 100 mg tablet Take by oral route. TONEY ([facility]) Fluconazole 150 MG Oral Tablet TONEY ([facility]) dapagliflozin 10 MG Oral Tablet [Farxiga] TONEY ([facility]) Famotidine 20 MG Oral Tablet TONEY ([facility]) doxycycline hyclate 100 MG Oral Capsule TONEY ([facility]) Deblitane 0.35 mg tablet TAKE ONE TABLET BY MOUTH EVERY DAY TONEY ([facility]) Clonidine Hydrochloride 0.1 MG Oral Tablet TONEY ([facility]) Clindamycin 150 MG Oral Capsule TONEY ([facility]) Ciprofloxacin 500 MG Oral Tablet TONEY ([facility]) Cephalexin 500 MG Oral Capsule TONEY ([facility]) 24 HR Bupropion Hydrochloride 450 MG Extended Release Oral Tablet TONEY ([facility]) venlafaxine 75 MG Oral Tablet TONEY ([facility]) venlafaxine 75 MG Oral Tablet TONEY ([facility]) 0.5 ML dulaglutide 3 MG/ML Auto-Injector [Trulicity] TONEY ([facility]) 0.5 ML dulaglutide 1.5 MG/ML Auto-Injector [Trulicity] TONEY ([facility]) tramadol hydrochloride 50 MG Oral Tablet TONEY ([facility]) Sumatriptan 50 MG Oral Tablet TONEY ([facility]) Sulfamethoxazole 800 MG / Trimethoprim 160 MG Oral Tablet TONEY ([facility]) Sucralfate 1000 MG Oral Tablet TONEY ([facility]) Ranitidine 150 MG Oral Tablet TONEY ([facility]) Prazosin 1 MG Oral Capsule A THENA ([facility]) pantoprazole 40 MG Delayed Release Oral Tablet TONEY ([facility]) Ondansetron 4 MG Oral Tablet TONEY ([facility]) Fluconazole 150 MG Oral Tablet TONEY ([facility]) dapagliflozin 10 MG Oral Tablet [Farxiga] TONEY ([facility]) Famotidine 20 MG Oral Tablet TONEY ([facility]) doxycycline hyclate 100 MG Oral Capsule TONEY ([facility]) Deblitane 0.35 mg tablet TAKE ONE TABLET BY MOUTH EVERY DAY TONEY ([facility]) Clonidine Hydrochloride 0.1 MG Oral Tablet TONEY ([facility]) Clindamycin 150 MG Oral Capsule TONEY ([facility]) Ciprofloxacin 500 MG Oral Tablet TONEY ([facility]) Cephalexin 500 MG Oral Capsule TONEY ([facility]) 24 HR Bupropion Hydrochloride 450 MG Extended Release Oral Tablet TONEY ([facility]) 24 HR Bupropion Hydrochloride 150 MG Extended Release Oral Tablet TONEY ([facility]) Amoxicillin 875 MG / Clavulanate 125 MG Oral Tablet TONEY ([facility]) venlafaxine 75 MG Oral Tablet TONEY ([facility]) 0.5 ML dulaglutide 3 MG/ML Auto-Injector [Trulicity] TONEY ([facility]) 0.5 ML dulaglutide 1.5 MG/ML Auto-Injector [Trulicity] TONEY ([facility]) tramadol hydrochloride 50 MG Oral Tablet TONEY ([facility]) Sumatriptan 50 MG Oral Tablet TONEY ([facility]) Sulfamethoxazole 800 MG / Trimethoprim 160 MG Oral Tablet TONEY ([facility]) Sucralfate 1000 MG Oral Tablet TONEY ([facility]) Ranitidine 150 MG Oral Tablet TONEY ([facility]) Prazosin 1 MG Oral Capsule A THENA ([facility]) pantoprazole 40 MG Delayed Release Oral Tablet TONEY ([facility]) Ondansetron 4 MG Oral Tablet TONEY ([facility]) Fluconazole 150 MG Oral Tablet TONEY ([facility]) dapagliflozin 10 MG Oral Tablet [Farxiga] TONEY ([facility]) Famotidine 20 MG Oral Tablet TONEY ([facility]) doxycycline hyclate 100 MG Oral Capsule TONEY ([facility]) Deblitane 0.35 mg tablet TAKE ONE TABLET BY MOUTH EVERY DAY TONEY ([facility]) Clonidine Hydrochloride 0.1 MG Oral Tablet TONEY ([facility]) Clindamycin 150 MG Oral Capsule TONEY ([facility]) Ciprofloxacin 500 MG Oral Tablet TONEY ([facility]) Cephalexin 500 MG Oral Capsule TONEY ([facility]) 24 HR Bupropion Hydrochloride 450 MG Extended Release Oral Tablet TONEY ([facility]) 24 HR Bupropion Hydrochloride 150 MG Extended Release Oral Tablet TONEY ([facility]) Amoxicillin 875 MG / Clavulanate 125 MG Oral Tablet TONEY ([facility]) 24 HR Bupropion Hydrochloride 450 MG Extended Release Oral Tablet TONEY ([facility]) 24 HR Bupropion Hydrochloride 150 MG Extended Release Oral Tablet TONEY ([facility]) Amoxicillin 875 MG / Clavulanate 125 MG Oral Tablet TONEY ([facility]) Sulfamethoxazole 800 MG / Trimethoprim 160 MG Oral Tablet TONEY ([facility]) Sucralfate 1000 MG Oral Tablet TONEY ([facility]) Ranitidine 150 MG Oral Tablet TONEY ([facility]) Prazosin 1 MG Oral Capsule A THENA ([facility]) Fluconazole 150 MG Oral Tablet TONEY ([facility]) dapagliflozin 10 MG Oral Tablet [Farxiga] TONEY ([facility]) Famotidine 20 MG Oral Tablet TONEY ([facility]) doxycycline hyclate 100 MG Oral Capsule TONEY ([facility]) Deblitane 0.35 mg tablet TAKE ONE TABLET BY MOUTH EVERY DAY TONEY ([facility]) [facility]ide 0.1 MG Oral Tablet TONEY ([facility]) Clindamycin 150 MG Oral Capsule TONEY ([facility]) Ciprofloxacin 500 MG Oral Tablet TONEY ([facility]) Cephalexin 500 MG Oral Capsule TONEY ([facility]) 24 HR Bupropion Hydrochloride 450 MG Extended Release Oral Tablet TONEY ([facility]) 24 HR Bupropion Hydrochloride 150 MG Extended Release Oral Tablet TONEY ([facility]) Amoxicillin 875 MG / Clavulanate 125 MG Oral Tablet TONEY ([facility]) venlafaxine 75 MG Oral Tablet TONEY ([facility]) 0.5 ML dulaglutide 1.5 MG/ML Auto-Injector [Trulicity] TONEY ([facility]) tramadol hydrochloride 50 MG Oral Tablet TONEY ([facility]) Sumatriptan 50 MG Oral Tablet TONEY ([facility]) Sulfamethoxazole 800 MG / Trimethoprim 160 MG Oral Tablet TONEY ([facility]) Sucralfate 1000 MG Oral Tablet TONEY ([facility]) Ranitidine 150 MG Oral Tablet TONEY ([facility]) Prazosin 1 MG Oral Capsule A THENA ([facility]) pantoprazole 40 MG Delayed Release Oral Tablet TONEY ([facility]) Ondansetron 4 MG Oral Tablet TONEY ([facility]) Fluconazole 150 MG Oral Tablet TONEY ([facility]) dapagliflozin 10 MG Oral Tablet [Farxiga] TONEY ([facility]) Famotidine 20 MG Oral Tablet TONEY ([facility]) doxycycline hyclate 100 MG Oral Capsule TONEY ([facility]) Deblitane 0.35 mg tablet TAKE ONE TABLET BY MOUTH EVERY DAY TONEY ([facility]) Clonidine Hydrochloride 0.1 MG Oral Tablet TONEY ([facility]) Clindamycin 150 MG Oral Capsule TONEY ([facility]) Ciprofloxacin 500 MG Oral Tablet TONEY ([facility]) Cephalexin 500 MG Oral Capsule TONEY ([facility]) venlafaxine 75 MG Oral Tablet TONEY ([facility]) 0.5 ML dulaglutide 1.5 MG/ML Auto-Injector [Trulicity] TONEY ([facility]) Sumatriptan 50 MG Oral Tablet TONEY ([facility]) Sulfamethoxazole 800 MG / Trimethoprim 160 MG Oral Tablet TONEY ([facility]) Sucralfate 1000 MG Oral Tablet TONEY ([facility]) Ranitidine 150 MG Oral Tablet TONEY ([facility]) Prazosin 1 MG Oral Capsule A THENA ([facility]) Fluconazole 150 MG Oral Tablet TONEY ([facility]) dapagliflozin 10 MG Oral Tablet [Farxiga] TONEY ([facility]) Famotidine 20 MG Oral Tablet TONEY ([facility]) doxycycline hyclate 100 MG Oral Capsule TONEY ([facility]) Deblitane 0.35 mg tablet TAKE ONE TABLET BY MOUTH EVERY DAY [place] ([facility]) Clonidine Hydrochloride 0.1 MG Oral Tablet TONEY ([facility]) Clindamycin 150 MG Oral Capsule TONEY ([facility]) Ciprofloxacin 500 MG Oral Tablet TONEY ([facility]) Cephalexin 500 MG Oral Capsule TONEY ([facility]) 24 HR Bupropion Hydrochloride 450 MG Extended Release Oral Tablet TONEY ([facility]) 24 HR Bupropion Hydrochloride 150 MG Extended Release Oral Tablet TONEY ([facility]) Amoxicillin 875 MG / Clavulanate 125 MG Oral Tablet TONEY ([facility]) venlafaxine 75 MG Oral Tablet TONEY ([facility]) 0.5 ML dulaglutide 1.5 MG/ML Auto-Injector [Trulicity] TONEY ([facility]) Sumatriptan 50 MG Oral Tablet TONEY ([facility])
[2021-02-25] MEDS ORDERED: HALOPERIDOL 5MG/ML VIAL (J1630 PER 1) IV ONE (05:55)
[2021-02-25] MEDS ORDERED: HALOPERIDOL 5MG/ML VIAL (J1630 PER 1) As Ordered ONE (05:56)
--- NOTE | 2021-02-25 06:10 | REPVR ---
PROCEDURE INFORMATION: Exam: CT Abdomen And Pelvis With Contrast Exam date and time: 02/25/2021 5:37 AM Age: 40 years old Clinical indication: Abdominal pain; Generalized; Additional info: Abdominal pain, n/v TECHNIQUE: Imaging protocol: Computed tomography of the abdomen and pelvis with contrast. Radiation optimization: All CT scans at this facility use at least one of these dose optimization techniques: automated exposure control; mA and/or kV adjustment per patient size (includes targeted exams where dose is matched to clinical indication); or iterative reconstruction. Contrast material: ISO; Contrast volume: 100 ml; Contrast route: INTRAVENOUS (IV); COMPARISON: CT ABD/PEL W/IV CONTRAST ONLY 09/20/2020 12:18 PM FINDINGS: Lungs: The visualized portions of the lung bases are normal. Liver: There is again a diffuse decrease in attenuation of the liver, consistent with fatty liver. Gallbladder and bile ducts: There has been a cholecystectomy. There is stable, mild biliary ductal dilation. Pancreas: There is diffuse atrophy of the pancreatic parenchyma. Spleen: The spleen is enlarged, measuring 16.9 x 13.8 cm, without significant change from the prior exam. Adrenal glands: The adrenal glands are normal. Kidneys and ureters: The kidneys are unremarkable. There are no ureteral stones or hydronephrosis. Stomach and bowel: The small bowel appears unremarkable. There is no dilation or thickening of the colon. Appendix: A normal appendix is identified. Intraperitoneal space: There is no evidence of free intraperitoneal or pelvic fluid. There is no free intraperitoneal air. Vasculature: No aortic aneurysm. Lymph nodes: No lymphadenopathy is seen. Urinary bladder: The bladder is unremarkable. No stones identified. Reproductive: The uterus is unremarkable. Bones/joints: There is facet arthropathy in the lumbar spine. Disc space narrowing and large endplate spurs are seen at the L5-S1 level. There is evidence of prior posterior decompression surgery at the L5 level. Soft tissues: There is nonspecific stranding in the subcutaneous tissues of the anterior abdominal wall, similar to the prior exam. IMPRESSION: 1. Fatty liver, similar to the prior exam. 2. Splenomegaly, without significant change. 3. Unremarkable appearance of the bowel. 4. Normal appearance of the appendix. Electronically signed by: Nguyen Macedo On 02/25/2021 06:10:33 AM
[2021-02-25] MEDS ORDERED: DEXTROSE 50% 50 ML SYRINGE IV PRN (07:20)
[2021-02-25] MEDS ORDERED: GLUCAGON INJ 1MG VIAL SC PRN (07:20)
[2021-02-25] MEDS ORDERED: GLUCOSE 4GM CHEW TABLET PO PRN (07:20)
[2021-02-25] MEDS ORDERED: DULA4.5P SC (07:24)
[2021-02-25] MEDS ORDERED: BASA100I SC (07:24)
[2021-02-25] MEDS: NS 1,000 ML IV SCH ×2 (07:25→17:39)
[2021-02-25] MEDS ORDERED: HOME MED LIST COMPLETE! XX SCH (07:30)
[2021-02-25] MEDS: HumaLOG INSULIN (NovoLOG) PER UNIT SC SCH ×4 (07:30→20:16)
--- NOTE | 2021-02-25 07:42 | HPEPDOC ---
[facility] Medical History & Physical Date of Admission Feb 25, 2021 Date of Service: Feb 25, 2021 Attending Physician: Maru Ortega MD History and Physical CHIEF COMPLAINT: Abdominal pain, N/V HISTORY OF PRESENT ILLNESS: Patient is a 40-year-old female with past medical history of wrist swelling re cently on steroids, DM type II, fibromyalgia, peripheral neuropathy, DDD, asthma depression, gastroparesis, infected left large toe s/p recent surgery debridement (02/23/[address] Rose) who presented to [facility] ER with chief complaint of incr n/v/d, abdominal pain. Symptoms started 4 days ago. She was started on a steroid for wrist swelling by orthopedic provider several days before her symptoms started, she only was on for 3 days, stopped more than 2 days ago. She complains of abdominal pain, located epigastric, nonradiating, worse with throwing up, 9-10/10. not relieved with anything. She has nonbloody vomitus > 10x/day, mostly bile with continuous nausea. Due to her GI symptoms, she has been unable to keep medications down for diabetes, she is normally compliant . No recent changes in diet, no new medications aside from steroids, diarrhea, chest pain, shortness of breath, fevers, chills. Due to no improvement in her symptoms she called 911. In the ER, vital signs are stable. CT of the abdomen and pelvis and chest x-ray showed no acute abnormality. WBC 11.8, blood sugar 479, pH within normal limits. Lactic acid 2.9, serum ketones elevated. The patient was seen to be on Bactrim; however, this was only started 2 days ago and she has previously tolerated this medication well. The patient was ultimately admitted for intractable vomiting likely secondary to hyperglycemic hyperosmolar syndrome, gastroparesis. ROS: Neg except for what is mentioned above. PAST MEDICAL HISTORY: Wrist swelling ? DM Fibromyalgia Neuropathy DDD Asthma Depression Gastroparesis Infected left large toe, recent surgery, states they took "bone out" and cleaned out. On bactrim now and has tolerated it fine, 2 days ago started. PAST SURGICAL HISTORY: Bone removal of left large toe Lower back surgery B/l CT Tonsillectomy Adenoidectomy SOCIAL HISTORY: No smoking history, illicit drug use, rare alcohol intake. Lives locally. PCP- [facility], [employer]or- Dr. Neal, Orthopedic- Zay Winkler, GI- Opal. FAMILY HISTORY: No significant family history per patient ALLERGIES: Please see below. HOME MEDICATIONS: Please see below. PHYSICAL EXAMINATION: VS: Please see below CONSTITUTIONAL: uncomfortable in bed, AAO x 3 EYES: PERRLA, EOM intact HEENT, MOUTH: Normocephalic, atraumatic, dry mucous membranes NECK: SUPPLE, no JVD, no lymphadenopathy, no carotid bruit CV: Regular rate and rhythm, S1S2 normal, no murmurs/rubs/gallops RESPIRATORY: Clear to auscultation bilaterally, no rales/rhonchi/wheezes GI: diffuse abdominal pain, more so in epigastric region. obese abd, BS p ositive in 4 quadrants, soft, nondistended, no rebound or guarding, no organomegaly : Deferred MUSCULOSKELETAL: Normal ROM. No cyanosis, clubbing, swelling, joint deformity, mild left foot edema, Left foot wrapped in gauze, in boot. INTEGUMENTARY: Some mild erythema and swelling of left foot in areas seen. No foul smell or abnormal discharge from area of concern where bx taken, no necrotic tissue. Intact, no rashes, no lesions NEUROLOGIC: Cranial Nerves II-XII are intact, no focal deficits PSYCHIATRIC: Mood and affect are normal LABORATORY DATA: Please see below IMAGING: CXR and CT abd/pelvis- see chart MICRO: COVID neg UA neg Blood cultures x 2 sets ASSESSMENT: 40-year-old female with past medical history of wrist swelling recently on steroids, DM type II, fibromyalgia, peripheral neuropathy, DDD, asthma, depression, gastroparesis, infected left large toe s/p recent surgery debridement (02/23/[address] Rose) admitted for intractable vomiting likely secondary to hyperglycemic hyperosmolar syndrome, gastroparesis. PLAN: Intractable vomiting/abdominal pain likely secondary to hyperglycemic hyperosmolar syndrome, gastroparesis -Continued despite tx in ER -UDS neg for cannabinoid -CT neg -Reglan, zofran, IVFs, morphine for pain -See individual treatment of issues below Hyperglycemic hyperosmolar syndrome possibly multifactorial 2/2 to steroid use, in combination of left large toe infection -Hx of DM type II, uncontrolled. -BS 479 on admission, VBG pH 7.35, + ketones -HbA1c 10 -Steroid use for wrist swelling, see below -Stopped steroids several days ago -Infected toe with bone bx done several days ago, managed by Dr. Rose -C/w insulin BID, ISS, FS AC/HS, IVFs, monitor electrolytes, abx treatment of infection Gastroparesis 2/2 to uncontrolled DM type II -Follows with GI provider in [place], name unknown -CT abd/pelvis above -Starting on reglan scheduled, zofran, IVFs. Can consider increasing reglan if needed -Control of DM above MRSA infection of left large toe, foot. -recent surgery, states they took "bone out" and cleaned out. On bactrim now and has tolerated it fine, 2 days ago started. -Per podiatry, will start vancomycin while here -Cultures were done as o/p -Dr. Rose suggests to switch back to bactrim at discharge. -Podiatry consulted. Wrist swelling -Per patient recently started on steroids for swelling by orthopedics outpatient, improving -Monitor while off steroids. Fibromyalgia -c/w home med Neuropathy -not on gabapentin DDD -tylenol PRN Asthma -albuterol PRN Depression -C/w home meds DVT px -Lovenox DISPOSITION: INpaitent admission. Full Code. Dr. Rose consulted to see. Vital Signs Vital Signs Date Time Temp Pulse Resp B/P (MAP) Pulse Ox O2 Delivery O2 Flow Rate FiO2 02/25/21 06:23 97.9 98 17 162/6 (57) 98 Room Air Laboratory Data Labs 24H Laboratory Tests 2 02/25/21 04:18: Bedside Glucose (Misc Panel) 463H 02/25/21 04:35: Immature Granulocyte % (Auto) 0.8, Neutrophils (%) (Auto) 79.5H, Lymphocytes (%) (Auto) 13.3L, Monocytes (%) (Auto) 5.7, Eosinophils (%) (Auto) 0.3, Basophils (%) (Auto) 0.4, Neutrophils # (Auto) 9.4H, Lymphocytes # (Auto) 1.6, Monocytes # (Auto) 0.7, Eosinophils # (Auto) 0.0, Basophils # (Auto) 0.1, Nucleated Red Blo od Cells % (auto) 0.0, Urine Color YELLOW, Urine Appearance HAZY, Urine pH 5.0, Urine Specific Mascot 1.038, Urine Protein 2+H, Urine Glucose (UA) 3+H, Urine Ketones 2+H, Urine Blood 3+H, Urine Nitrite NEGATIVE, Urine Bilirubin NEGATIVE, Urine Urobilinogen 0.2, Urine Leukocyte Esterase NEGATIVE, Urine WBC (Auto) 18H, Urine RBC (Auto) 70H, Urine Hyaline Casts (Auto) 0, Urine Bacteria (Auto) NEGATI VE, Urine Squamous Epithelial Cells 2, Urine Mucus (Auto) SMALL, Urine Sperm (Auto) , Blood Gas Bicarbonate Standard 19.0, Venous Blood pH 7.350, Venous Blood Partial Pressure CO2 35.5L, Venous Blood Partial Pressure O2 30.7, Venous Blood Total Carbon Dioxide 20.2L, Venous Blood HCO3 19.2L, Venous Blood Oxygen Saturation 59.1L, Venous Blood Base Excess -5.6L, Anion Gap 15, Glomerular Filtration Rate > 60.0, Estimated Mean Plasma Glucose 255H, Hemoglobin A1c 10.5, Osmolality 301H, Lactic Acid Level 2.9*H, Calcium Level 9.2, Total Bilirubin 1.1H, Direct Bilirubin 0.4H, Aspartate Amino Transf (AST/SGOT) 20, Alanine Aminotransferase (ALT/SGPT) 38, Alkaline Phosphatase 115, Total Protein 8.0, Alb umin 3.4, Albumin/Globulin Ratio 0.7L, Lipase 45L, Urine Opiates Screen NEGATIVE, Urine Methadone Screen NEGATIVE, Urine Barbiturates Screen NEGATIVE, Urine Phencyclidine Screen NEGATIVE, Urine Amphetamines Screen NEGATIVE, Urine Benzodiazepines Screen NEGATIVE, Urine Cocaine Metabolite Screen NEGATIVE, Urine Cannabinoids Screen NEGATIVE, Ethyl Alcohol Level < 0.003, B-Hydroxybutyrate 37.22H CBC/BMP Laboratory Tests 02/25/21 04:35 Microbiology Microbiology 02/25/21 Urine Culture, Received Pending 02/25/21 Respiratory Virus Panel (PCR) (CHRISTOPHER) - Final, Complete Home Medications Scheduled Bupropion HCl (Bupropion Xl) 300 Mg Tab.er.24h, 300 MG PO DAILY Dulaglutide (Trulicity) 4.5 Mg/0.5 Ml Pen.injctr, 4.5 MG SC QWEEK SUNDAY Fluticasone Furoate (Arnuity Ellipta) 100 Mcg/Act Inh, 1 PUFF INH DAILY Insulin Aspart (Novolog Flexpen) 100 Unit/1 Ml Insuln.pen, 1 DOSE SC AC PER SLIDING SCALE. NOT TO GO OVER 10 UNITS Insulin Glargine,Hum.rec.anlog (Basaglar Kwikpen U-100) 100 Unit/1 Ml Insuln.pen, 70 UNIT SC QHS Metformin HCl (Metformin HCl) 1,000 Mg Tab, 1,000 MG PO BID Sulfamethoxazole/Trimethoprim (Bactrim Ds Tablet) 1 Each Tablet, 1 TAB PO BID FOR 14 DAYS, FILLED 02/23/21 Scheduled PRN Albuterol Sulfate (Ventolin Hfa) 108 Mcg/Act Aer, 2 PUFF INH QID PRN for SHORTNESS OF BREATH Metoclopramide HCl (Metoclopramide HCl) 5 Mg Tablet, 5 MG PO BIDP PRN for CONSTIPATION BEFORE MEALS Allergies Coded Allergies: canagliflozin (Verified Allergy, Mild, RASH, 02/25/21) latex (Verified Allergy, Mild, RASH, 02/25/21) gabapentin (Verified Adverse Reaction, Mild, n/v, 02/25/21) A-FIB/CHADSVASC A-FIB History Current/History of A-Fib/PAF?: No Current PO Anticoag Therapy: No Age/Risk Factor Scoring CHADSVASC: CHADSVASC Response (Comments) Value Age Risk Factor Age < 65 years old 0 Gender Risk Factor Female 1 Hx of CHF No 0 Hx of HTN Yes 1 Hx of Stroke/TIA/or VTE No 0 Hx of Diabetes Yes 1 Hx of Vascular Disease No 0 Total 3 Treatment Treatment ordered: Other Other anticoagulant ordered: Maru Harrison MD Feb 25, 2021 07:42
[2021-02-25] MEDS ORDERED: cefTRIAXone SOD 1 GM in D5W MINI-BAG PLUS 50 ML IV SCH (08:00)
[2021-02-25] MEDS: LEVEMIR (INSULIN DETEMIR) 1 UNITS/0.01ML SC SCH ×2 (09:00→20:17)
[2021-02-25] MEDS ORDERED: BACTRIM 160MG/800MG DS TAB PO SCH (09:00)
[2021-02-25] MEDS ORDERED: LEVEMIR (INSULIN DETEMIR) 1 UNITS/0.01ML SC SCH (09:00)
[2021-02-25] MEDS ORDERED: ALBUTEROL 90 MCG/ACT 8GM HFA INHALER INH PRN (09:20)
[2021-02-25 09:43] LABS: MAGNESIUM LEVEL 2.1 MG/DL (1.8-2.4); PHOSPHORUS LEVEL 2.7 MG/DL (2.5-4.9)
[2021-02-25] MEDS: buPROPion **XL** TABLET 150MG (WELLBUTRIN XL) PO SCH (10:53)
[2021-02-25] MEDS: METOCLOPRAMIDE INJ 10MG/2ML VIAL (J2765 PER 1) IV SCH ×2 (11:30→18:35)
[2021-02-25] MEDS ORDERED: VANCOMYCIN HCL 1,000 MG, VIAL MATE ADAPTER 1 EACH in NS 250 ML IV SCH (13:00)
[2021-02-25 14:09] LABS: INR 1.08; PROTHROMBIN TIME 14.4 SECONDS (12.7-14.5)
[2021-02-25 14:10] LABS: PARTIAL THROMBOPLASTIN TIME 25.8 SECONDS (25.9-37.0)
[2021-02-25 17:00] VITALS: BP 146/90
[2021-02-25] MEDS: ENOXAPARIN 40MG/0.4ML SYRINGE (J1650 PER 10MG) SC SCH (17:12)
[2021-02-25] MEDS: ONDANSETRON 4MG/2ML VIAL IV PRN (17:37)
[2021-02-25] MEDS: VANCOMYCIN HCL 1,000 MG, VIAL MATE ADAPTER 1 EACH in NS 250 ML IV SCH ×2 (17:49→19:44)
--- NOTE | 2021-02-25 18:35 | CR ---
CONSULTATION DATE: 02/25/2021 REASON FOR CONSULTATION: Left hallux ulceration. HISTORY OF PRESENT ILLNESS: Dara Blackmon is a diabetic female who was seen in my office two days ago with worsening of a left hallux ulceration. She had bone excision and debridement at that appointment and was sent home with Bactrim, which she states she has been taking. She has developed nausea and vomiting. She attributes this to the steroid. She had been tolerating the Bactrim fine prior to this. PAST MEDICAL HISTORY: Significant for: 1. Diabetes. 2. Neuropathy. 3. Fibromyalgia. 4. Degenerative disc disease. 5. Asthma. 6. Depression. 7. Gastroparesis. PAST SURGICAL HISTORY: 1. Lower back surgery. 2. Tonsillectomy. 3. Adenoids. 4. Left hallux bone excision. SOCIAL HISTORY: Denies smoking. Denies alcohol use. ALLERGIES: canagliflozin, gabapentin, latex. FAMILY HISTORY: Noncontributory. LABORATORY DATA: White blood cell count 11.8. PHYSICAL EXAMINATION: VITAL SIGNS: Patient has been afebrile since admission. LOWER EXTREMITY EXAMINATION: There is some persisting erythema and edema to the left foot. Left hallux is improved. Remains some nonviable tissue. ASSESSMENT: This is a 40-year-old diabetic female with left hallux osteomyelitis status post bone excision. PLAN: Wound cultures revealed that there was methicillin-resistant Staphylococcus aureus (MRSA) in the wound. Will start her on vancomycin. On discharge, she can be resumed on the Bactrim. Start Vashe and Hydrofera Blue dressings while in hospital.
[2021-02-25] MEDS: MORPHINE 2 MG/ML 1ML VIAL (J2270) IV PRN (18:52)
[2021-02-25 21:41] VITALS: BP 176/82
[2021-02-25 22:30] VITALS: BP 107/70
[2021-02-26] MEDS ORDERED: LR 1,000 ML IV ONE (01:20)
[2021-02-26] MEDS: NS 1,000 ML IV SCH ×2 (01:35→08:56)
[2021-02-26] MEDS ORDERED: VANCOMYCIN HCL 1,000 MG, VIAL MATE ADAPTER 1 EACH in NS 250 ML IV SCH (02:00)
[2021-02-26] MEDS: METOCLOPRAMIDE INJ 10MG/2ML VIAL (J2765 PER 1) IV SCH ×3 (02:42→18:03)
[2021-02-26 06:00] VITALS: BP 104/57
[2021-02-26 06:27] LABS: HEMATOCRIT 35.4 % (36.0-47.0); MEAN CORPUSCULAR HEMOGLOBIN 26.3 pg (27.0-33.0); MEAN CORPUSCULAR HGB CONC 32.8 g/dl (32.0-36.5); MEAN CORPUSCULAR VOLUME 80.3 fl (80.0-96.0); PLATELET COUNT, AUTOMATED 211 10^3/uL (150-450); RED BLOOD COUNT 4.41 10^6/uL (4.00-5.40); WHITE BLOOD COUNT 8.7 10^3/uL (4.0-10.0)
[2021-02-26 06:33] LABS: HEMOGLOBIN 11.6 g/dl (12.0-15.5)
[2021-02-26 06:54] LABS: ACETONE/KETONE 3.84 MG/DL (<2.81); ALBUMIN 2.3 GM/DL (3.2-5.2); ALT/SGPT 27 U/L (12-78); BILIRUBIN,TOTAL 0.4 MG/DL (0.2-1.0); BLOOD UREA NITROGEN 10 MG/DL (7-18); CALCIUM LEVEL 7.6 MG/DL (8.5-10.1); CARBON DIOXIDE LEVEL 23 MEQ/L (21-32); CHLORIDE LEVEL 112 MEQ/L (98-107); CREATININE FOR GFR 0.48 MG/DL (0.55-1.30); GLOMERULAR FILTRATION RATE > 60.0 (>58); GLUCOSE, FASTING 135 MG/DL (70-100); POTASSIUM SERUM 3.5 MEQ/L (3.5-5.1); SODIUM LEVEL 142 MEQ/L (136-145); TOTAL PROTEIN 5.5 GM/DL (6.4-8.2)
--- NOTE | 2021-02-26 08:04 | ECGEPIP ---
[facility] - ED Test Date: 2021-02-25 Pat Name: KALEN KNOX Department: Room: - Gender: Female Chief Pharmacist: DOMINGA : 1980 Requested By: CLAUDETTE Bennett Order Number: [id number] Reading MD: Emily Pickering Measurements Intervals [place] Rate: 89 P: 33 [place]: 128 QRS: -20 QRSD: 84 T: 58 QT: 392 QTc: 476 Interpretive Statements Sinus rhythm with frequent premature ventricular complexes prolonged qtc increased rate/ectopy 12/01/17 Electronically Signed on 02-26-2021 8:03:45 EST by Emily Pickering
[2021-02-26] MEDS: ONDANSETRON 4MG/2ML VIAL IV PRN ×2 (08:09→14:36)
[2021-02-26] MEDS: ENOXAPARIN 40MG/0.4ML SYRINGE (J1650 PER 10MG) SC SCH (08:54)
[2021-02-26] MEDS: LEVEMIR (INSULIN DETEMIR) 1 UNITS/0.01ML SC SCH ×2 (08:54→21:00)
[2021-02-26] MEDS: buPROPion **XL** TABLET 150MG (WELLBUTRIN XL) PO SCH (08:54)
[2021-02-26] MEDS: HumaLOG INSULIN (NovoLOG) PER UNIT SC SCH ×4 (08:55→21:00)
[2021-02-26] MEDS: MORPHINE 2 MG/ML 1ML VIAL (J2270) IV PRN ×2 (08:56→17:13)
[2021-02-26 14:00] VITALS: BP 142/72
--- NOTE | 2021-02-26 14:30 | IPNPDOC ---
Date Seen The patient was seen on 02/26/21. Progress Note SUBJECTIVE: Improved nausea and vomiting, abdominal pain decreased. Left lower extremity appears more swollen than on admission. Was seen by podiatry yesterday who placed on vancomycin IV. She is attempting to eat but has little appetite currently. Denies chest pain, shortness of breath. OBJECTIVE: PHYSICAL EXAMINATION: VS: Please see below CONSTITUTIONAL: resting in bed, AAO x 3 EYES: PERRLA, EOM intact HEENT, MOUTH: Normocephalic, atraumatic, dry mucous membranes NECK: SUPPLE, no JVD, no lymphadenopathy, no carotid bruit CV: Regular rate and rhythm, S1S2 normal, no murmurs/rubs/gallops RESPIRATORY: Clear to auscultation bilaterally, no rales/rhonchi/wheezes GI: mild epigastaric abdominal pain. obese abd, BS positive in 4 quadrants, soft, nondistended, no rebound or guarding, no organomegaly : Deferred MUSCULOSKELETAL: Normal ROM. No cyanosis, clubbing, swelling, joint deformity, left foot edema INTEGUMENTARY: Erythema and swelling of left foot extending to left ankle, slightly above, outlined with marker. Left large toe wound (L 2.5 cm x W 1.45 cm x D 1.5 cm), some necrotic tissue seen within. On bottom of left large toe, blacked areas, no blisters. No foul smell or abnormal discharge from area of wound. NEUROLOGIC: Cranial Nerves II-XII are intact, no focal deficits PSYCHIATRIC: Mood and affect are normal LABORATORY DATA: Please see below IMAGING: CXR and CT abd/pelvis- see chart MICRO: COVID neg UA neg Blood cultures Ng to date ASSESSMENT: 40-year-old female with past medical history of wrist swelling recently on steroids, DM type II, fibromyalgia, peripheral neuropathy, DDD, asthma, depression, gastroparesis, infected left large toe s/p recent surgery debridement (02/23/[address] Rose) admitted for intractable vomiting likely secondary to hyperglycemic hyperosmolar syndrome, gastroparesis. PLAN: Intractable vomiting/abdominal pain likely secondary to hyperglycemic hyperosmolar syndrome, gastroparesis -improving with improved blood sugars -UDS neg for cannabinoid -CT neg -CLD, Reglan, zofran, IVFs decreased, encouraging PO intake of fluids, morphine for pain -See individual treatment of issues below Hyperglycemic hyperosmolar syndrome possibly multifactorial 2/2 to steroid use, in combination of left large toe infection/left foot cellulitis -Hx of DM type II, uncontrolled. -BS 479 on admission, VBG pH 7.35, + ketones- ketones much less today -HbA1c 10 -Stopped steroids several days ago -Left large infected toe/left foot cellulitis with bone bx done several days ago, managed by Dr. Rose -Stopped IVF today, encouraging adequate fluid intake -C/w insulin BID, ISS, FS AC/HS, monitor electrolytes, abx treatment of infection Gastroparesis 2/2 to uncontrolled DM type II -Follows with GI provider in [place], name unknown -CT abd/pelvis above -C/w reglan scheduled, zofran, IVFs. Can consider increasing reglan if needed -Control of DM above MRSA infection of left large toe, foot with cellulitis. -recent surgery, states they took "bone out" and cleaned out. On bactrim on admission, switched to vancomycin by podiatry on 02/25/21 -Culture done as o/p: MRSA -F/u blood cultures -C/w Vancomycin, wound care -Dr. Rose suggests to switch back to bactrim at discharge, podiatry consulted. Wrist swelling -Per patient recently started on steroids for swelling by orthopedics outpatient, improving -Monitor while off steroids. Fibromyalgia -c/w home med Neuropathy -not on gabapentin DDD -tylenol PRN Asthma -albuterol PRN Depression -C/w home meds DVT px -Lovenox DISPOSITION: Inpatient admission. Full Code. Dr. Rose consulted. VS, I&O, 24H, Fishbone Vital Signs/I&O Vital Signs Date Time Temp Pulse Resp B/P (MAP) Pulse Ox O2 Delivery O2 Flow Rate FiO2 02/26/21 09:06 14 02/26/21 06:00 97.0 87 104/57 (73) 99 Room Air I&O- Last 24 Hours up to 6 AM 02/26/21 05:59 Intake Total 3782 ml Output Total 0 ml Balance 3782 ml Laboratory Data 24H LABS Laboratory Tests 2 02/25/21 16:59: Bedside Glucose (Misc Panel) 343H 02/25/21 20:00: Bedside Glucose (Misc Panel) 269H 02/26/21 05:42: Nucleated Red Blood Cells % (auto) 0.0, Anion Gap 7L, Glomerular Filtration Rate > 60.0, Calcium Level 7.6#L, Total Bilirubin 0.4#, Aspartate Amino Transf (AST/SGOT) 16, Alanine Aminotransferase (ALT/SGPT) 27, Alkaline Phosphatase 75, Total Protein 5.5#L, Albumin 2.3#L, Albumin/Globulin Ratio 0.7L, B- Hydroxybutyrate 3.84H 02/26/21 11:38: Bedside Glucose (Misc Panel) 131H 02/26/21 13:14: Vancomycin Level Trough 4.6L CBC/BMP Laboratory Tests 02/26/21 05:42 Microbiology Microbiology 02/25/21 Blood Culture - Preliminary, Resulted No growth after 24 hours . All specim... 02/25/21 Blood Culture - Preliminary, Resulted No growth after 24 hours . All specim... 02/25/21 Urine Culture - Final, Complete 02/25/21 Respiratory Virus Panel (PCR) (CHRISTOPHER) - Final, Complete Maur Ortega MD Feb 26, 2021 14:30
[2021-02-26] MEDS: VANCOMYCIN HCL 1,000 MG, VIAL MATE ADAPTER 1 EACH in NS 250 ML IV SCH ×2 (15:35→22:30)
[2021-02-26] MEDS ORDERED: VANCOMYCIN HCL 1,000 MG, VIAL MATE ADAPTER 1 EACH in NS 250 ML IV ONE (16:00)
[2021-02-26 22:00] VITALS: BP 115/86
[2021-02-26] MEDS: ANUSOL HC 25MG SUPP PR PRN (22:33)
[2021-02-27] MEDS: VANCOMYCIN HCL 500 MG in D5W MINI-BAG PLUS 100 ML IV SCH ×3 (00:20→18:57)
[2021-02-27] MEDS: NS 1,000 ML IV SCH ×3 (00:21→21:58)
[2021-02-27] MEDS: METOCLOPRAMIDE INJ 10MG/2ML VIAL (J2765 PER 1) IV SCH ×3 (03:08→18:02)
[2021-02-27 06:00] VITALS: BP 158/90
[2021-02-27] MEDS: VANCOMYCIN HCL 1,000 MG, VIAL MATE ADAPTER 1 EACH in NS 250 ML IV SCH ×3 (06:16→22:55)
[2021-02-27] MEDS: ONDANSETRON 4MG/2ML VIAL IV PRN (06:49)
[2021-02-27] MEDS: ENOXAPARIN 40MG/0.4ML SYRINGE (J1650 PER 10MG) SC SCH (08:29)
[2021-02-27] MEDS: buPROPion **XL** TABLET 150MG (WELLBUTRIN XL) PO SCH (08:29)
[2021-02-27] MEDS: LEVEMIR (INSULIN DETEMIR) 1 UNITS/0.01ML SC SCH (08:30)
[2021-02-27] MEDS: HumaLOG INSULIN (NovoLOG) PER UNIT SC SCH ×4 (08:31→20:28)
[2021-02-27 08:35] LABS: HEMATOCRIT 38.9 % (36.0-47.0); HEMOGLOBIN 12.7 g/dl (12.0-15.5); MEAN CORPUSCULAR HEMOGLOBIN 26.6 pg (27.0-33.0); MEAN CORPUSCULAR HGB CONC 32.6 g/dl (32.0-36.5); MEAN CORPUSCULAR VOLUME 81.4 fl (80.0-96.0); PLATELET COUNT, AUTOMATED 234 10^3/uL (150-450); RED BLOOD COUNT 4.78 10^6/uL (4.00-5.40); WHITE BLOOD COUNT 6.7 10^3/uL (4.0-10.0)
[2021-02-27 09:04] LABS: ALBUMIN 2.6 GM/DL (3.2-5.2); ALT/SGPT 49 U/L (12-78); BILIRUBIN,TOTAL 0.6 MG/DL (0.2-1.0); BLOOD UREA NITROGEN 8 MG/DL (7-18); CARBON DIOXIDE LEVEL 21 MEQ/L (21-32); CHLORIDE LEVEL 109 MEQ/L (98-107); CREATININE FOR GFR 0.47 MG/DL (0.55-1.30); GLOMERULAR FILTRATION RATE > 60.0 (>58); GLUCOSE, FASTING 244 MG/DL (70-100); POTASSIUM SERUM 3.3 MEQ/L (3.5-5.1); SODIUM LEVEL 140 MEQ/L (136-145); TOTAL PROTEIN 6.9 GM/DL (6.4-8.2)
[2021-02-27] MEDS ORDERED: MIRALAX *UNIT DOSE* 17GM PACKET PO PRN (09:05)
--- NOTE | 2021-02-27 09:52 | REP ---
INDICATION: r/o obstruction COMPARISON: None. TECHNIQUE: Supine view of the abdomen and pelvis. FINDINGS: Bowel gas pattern is nonspecific and without obstruction or perforation. No organomegaly. No abnormal calcifications. Skeletal structures intact. IMPRESSION: Normal abdominal radiograph. <Electronically signed by Domo Ortiz > 02/27/21 [id number]
[2021-02-27] MEDS: DOCUSATE SODIUM 100MG CAPSULE PO SCH ×2 (10:06→21:57)
[2021-02-27] MEDS: ANUSOL HC 25MG SUPP PR PRN ×2 (10:06→23:20)
[2021-02-27 14:00] VITALS: BP 162/78
--- NOTE | 2021-02-27 14:26 | IPN ---
PROGRESS NOTE DATE: 02/27/2021 SUBJECTIVE: Patient seen and examined. States she is having some discomfort from her abdominal issues, but her foot is feeling a little bit better. VITAL SIGNS: She has remained afebrile. LABORATORIES: White blood cell count 6.7. The wound culture taken in the office on February 23, 2021 has grown methicillin-resistant Staphylococcus aureus (MRSA). PHYSICAL EXAMINATION: LOWER EXTREMITY EXAMINATION: Erythema and edema improved from demarcated line; however, there is still some erythema and purulence noted from the distal left hallux. ASSESSMENT: This is a 40-year-old female with left hallux osteomyelitis. TREATMENT: Distal phalanx was removed using a #15 blade. The proximal tissue appeared without obvious infection. Continue Vashe dressings and Hydrofera Blue changed daily. Continue vancomycin. Once discharged, she could be put back onto her Bactrim, but while in hospital, I would continue her vancomycin.
--- NOTE | 2021-02-27 14:45 | IPNPDOC ---
Date Seen The patient was seen on 02/27/21. Progress Note SUBJECTIVE: Incr N/V, abdominal pain present. Poor PO intake. ABXR neg for ileus/obstruction. Improving cellulitis. Denies chest pain, shortness of breath. OBJECTIVE: PHYSICAL EXAMINATION: VS: Please see below CONSTITUTIONAL: resting in bed, AAO x 3 EYES: PERRLA, EOM intact HEENT, MOUTH: Normocephalic, atraumatic, dry mucous membranes NECK: SUPPLE, no JVD, no lymphadenopathy, no carotid bruit CV: Regular rate and rhythm, S1S2 normal, no murmurs/rubs/gallops RESPIRATORY: Clear to auscultation bilaterally, no rales/rhonchi/wheezes GI: mild epigastaric abdominal pain. obese abd, BS positive in 4 quadrants, soft, nondistended, no rebound or guarding, no organomegaly : Deferred MUSCULOSKELETAL: Normal ROM. No cyanosis, clubbing, swelling, joint deformity, left foot edema improving INTEGUMENTARY: Erythema and swelling of left foot extending to left ankle, slightly above, outlined with marker-improving . Left large toe wound (L 2.5 cm x W 1.45 cm x D 1.5 cm). On bottom of left large toe, blacked areas, no blisters. No foul smell or abnormal discharge from area of wound. NEUROLOGIC: Cranial Nerves II-XII are intact, no focal deficits PSYCHIATRIC: Mood and affect are normal LABORATORY DATA: Please see below IMAGING: ABXR: Unremarkable CXR and CT abd/pelvis- see chart MICRO: COVID neg UA neg Blood cultures Ng to date ASSESSMENT: 40-year-old female with past medical history of wrist swelling recently on steroids, DM type II, fibromyalgia, peripheral neuropathy, DDD, asthma, depression, gastroparesis, infected left large toe s/p recent surgery debridement (02/23/[address] Rose) admitted for intractable vomiting likely secondary to hyperglycemic hyperosmolar syndrome, gastroparesis. PLAN: Intractable vomiting/abdominal pain likely secondary to hyperglycemic hyperosmolar syndrome, gastroparesis -Improved then increased again today- patient states that this occurs with "obstruction by her hemorrhoids"? -ABXR showed no concerns for obstruction -BS improving -UDS neg for cannabinoid -CT neg -CLD, Reglan, zofran, IVFs continue, encouraging PO intake of fluids, morphine for pain -See individual treatment of issues below Hyperglycemic hyperosmolar syndrome possibly multifactorial 2/2 to steroid use, in combination of left large toe infection/left foot cellulitis -Hx of DM type II, uncontrolled. -BS still > 200 -HbA1c 10 -Stopped steroids several days ago -Left large infected toe/left foot cellulitis with bone bx done several days ag o, managed by Dr. Rose -Encouraging adequate fluid intake -C/w insulin BID, ISS, FS AC/HS, monitor electrolytes, abx treatment of infection Gastroparesis 2/2 to uncontrolled DM type II -Follows with GI provider in [place], name unknown -CT abd/pelvis above -C/w reglan scheduled, zofran, IVFs. Can consider increasing reglan if needed -Control of DM above Left hallux osteomyelitis, + MRSA / left foot cellulitis -Recent surgery, states they took "bone out" and cleaned out. On bactrim on admission, switched to vancomycin by podiatry on 02/25/21 -Culture done as o/p: MRSA -F/u blood cultures -C/w Vancomycin, wound care -Dr. Rose suggests to switch back to bactrim at discharge, podiatry consulted. Hemorrhoids -Anusol NM Wrist swelling -Per patient recently started on steroids for swelling by orthopedics outpatient, improving -Monitor while off steroids. Fibromyalgia -c/w home med Neuropathy -not on gabapentin DDD -tylenol PRN Asthma -albuterol PRN Depression -C/w home meds DVT px -Lovenox DISPOSITION: Inpatient admission. Full Code. Dr. Rose consulted. VS, I&O, 24H, Fishbone Vital Signs/I&O Vital Signs Date Time Temp Pulse Resp B/P (MAP) Pulse Ox O2 Delivery O2 Flow Rate FiO2 02/27/21 06:00 96.9 78 18 158/90 (112) 100 Room Air I&O- Last 24 Hours up to 6 AM 02/27/21 06:00 Intake Total 2850 ml Output Total 168 ml Balance 2682 ml Laboratory Data 24H LABS Laboratory Tests 2 02/26/21 17:27: Bedside Glucose (Misc Panel) 145H 02/26/21 20:46: Bedside Glucose (Misc Panel) 140H 02/27/21 02:06: Bedside Glucose (Misc Panel) 190H 02/27/21 08:15: Bedside Glucose (Misc Panel) 228H 02/27/21 08:24: Nucleated Red Blood Cells % (auto) 0.0, Anion Gap 10, Glomerular Filtration Rate > 60.0, Calcium Level 8.0L, Total Bilirubin 0.6, Aspartate Amino Transf (AST/SGOT) 35, Alanine Aminotransferase (ALT/SGPT) 49, Alkaline Phosphatase 89, Total Protein 6.9#, Albumin 2.6L, Albumin/Globulin Ratio 0.6L 02/27/21 12:13: Bedside Glucose (Misc Panel) 203H 02/27/21 14:28: CBC/BMP Laboratory Tests 02/27/21 08:24 Microbiology Microbiology 02/25/21 Blood Culture - Preliminary, Resulted No Growth after 48 hours. All Specime... 02/25/21 Blood Culture - Preliminary, Resulted No Growth after 48 hours. All Specime... 02/25/21 Urine Culture - Final, Complete 02/25/21 Respiratory Virus Panel (PCR) (CHRISTOPHER) - Final, Complete Maru Ortega MD Feb 27, 2021 14:45
[2021-02-27] MEDS ORDERED: KCL 10MEQ/100ML SWI (KRUN) 10 MEQ in IV 1 EA IV SCH (15:00)
[2021-02-27] MEDS ORDERED: LEVEMIR (INSULIN DETEMIR) 1 UNITS/0.01ML SC SCH (21:00)
[2021-02-27] MEDS: KCL 10MEQ/100ML SWI (KRUN) 10 MEQ in IV 1 EA IV SCH (21:57)
[2021-02-27 22:00] VITALS: BP 168/82
[2021-02-28] MEDS: VANCOMYCIN HCL 500 MG in D5W MINI-BAG PLUS 100 ML IV SCH ×2 (00:04→06:09)
[2021-02-28] MEDS: KCL 10MEQ/100ML SWI (KRUN) 10 MEQ in IV 1 EA IV SCH ×3 (01:40→04:02)
[2021-02-28] MEDS: METOCLOPRAMIDE INJ 10MG/2ML VIAL (J2765 PER 1) IV SCH ×2 (02:51→11:08)
[2021-02-28] MEDS: VANCOMYCIN HCL 1,000 MG, VIAL MATE ADAPTER 1 EACH in NS 250 ML IV SCH ×2 (04:59→11:08)
[2021-02-28 05:49] LABS: HEMOGLOBIN 13.8 g/dl (12.0-15.5); MEAN CORPUSCULAR HGB CONC 31.4 g/dl (32.0-36.5); MEAN CORPUSCULAR VOLUME 82.9 fl (80.0-96.0); PLATELET COUNT, AUTOMATED 220 10^3/uL (150-450); RED BLOOD COUNT 5.31 10^6/uL (4.00-5.40); WHITE BLOOD COUNT 6.3 10^3/uL (4.0-10.0)
[2021-02-28 06:00] VITALS: BP 186/101
[2021-02-28 06:22] LABS: ALT/SGPT 63 U/L (12-78); BILIRUBIN,TOTAL 0.7 MG/DL (0.2-1.0); BLOOD UREA NITROGEN 4 MG/DL (7-18); CALCIUM LEVEL 8.3 MG/DL (8.5-10.1); CARBON DIOXIDE LEVEL 24 MEQ/L (21-32); CHLORIDE LEVEL 105 MEQ/L (98-107); CREATININE FOR GFR 0.47 MG/DL (0.55-1.30); GLOMERULAR FILTRATION RATE > 60.0 (>58); GLUCOSE, FASTING 198 MG/DL (70-100); POTASSIUM SERUM 3.8 MEQ/L (3.5-5.1); SODIUM LEVEL 138 MEQ/L (136-145); TOTAL PROTEIN 7.2 GM/DL (6.4-8.2)
[2021-02-28 08:00] VITALS: BP 118/68
[2021-02-28] MEDS ORDERED: FUROSEMIDE 20MG/2ML VIAL (J1940) IV ONE (09:00)
[2021-02-28] MEDS ORDERED: LEVEMIR (INSULIN DETEMIR) 1 UNITS/0.01ML SC SCH (09:00)
[2021-02-28] MEDS: HumaLOG INSULIN (NovoLOG) PER UNIT SC SCH ×2 (09:28→13:22)
[2021-02-28] MEDS: DOCUSATE SODIUM 100MG CAPSULE PO SCH (09:29)
[2021-02-28] MEDS: ENOXAPARIN 40MG/0.4ML SYRINGE (J1650 PER 10MG) SC SCH (09:29)
[2021-02-28] MEDS: buPROPion **XL** TABLET 150MG (WELLBUTRIN XL) PO SCH (09:29)
[2021-02-28] MEDS ORDERED: COLA100C5 PO (10:57)
[2021-02-28] MEDS ORDERED: ANUSHCSU PR (10:57)
[2021-02-28] MEDS ORDERED: MIRA1POW3 PO (10:57)
[2021-02-28] MEDS ORDERED: BASA100I SC ×2 (10:57)
[2021-02-28] MEDS: NS 1,000 ML IV SCH (13:21)
--- NOTE | 2021-02-28 21:16 | DS.PDOC ---
Discharge Summary General Date of Admission Feb 25, 2021 at 07:20 Date of Discharge 02/28/21 Attending Physician: Maru Ortega MD Discharge Summary PROCEDURES PERFORMED DURING STAY: left distal phalanx removal ADMITTING DIAGNOSES: Intractable vomiting/abdominal pain likely secondary to hyperglycemic hyperosmolar syndrome, gastroparesis Hyperglycemic hyperosmolar syndrome possibly multifactorial 2/2 to steroid use, in combination of left large toe infection/left foot cellulitis Uncontrolled DM type II Left hallux osteomyelitis, + MRSA / left foot cellulitis Hemorrhoids Wrist swelling Fibromyalgia Neuropathy DDD Asthma Depression DISCHARGE DIAGNOSES: Intractable vomiting/abdominal pain likely secondary to hyperglycemic hyperosmo lar syndrome, gastroparesis Hyperglycemic hyperosmolar syndrome possibly multifactorial 2/2 to steroid use, in combination of left large toe infection/left foot cellulitis Uncontrolled DM type II Left hallux osteomyelitis, + MRSA / left foot cellulitis Hemorrhoids Wrist swelling Fibromyalgia Neuropathy DDD Asthma Depression COMPLICATIONS/CHIEF COMPLAINT: Intractable Vomiting. HISTORY OF PRESENT ILLNESS: Patient is a 40-year-old female with past medical history of wrist swelling recently on steroids, DM type II, fibromyalgia, peripheral neuropathy, DDD, asthma depression, gastroparesis, infected left large toe s/p recent surgery debridement (02/23/[address] Rose) who presented to [facility] ER with chief complaint of incr n/v/d, abdominal pain. Symptoms started 4 days ago. She was started on a steroid for wrist swelling by orthopedic provider several days before her symptoms started, she only was on for 3 days, stopped more than 2 days ago. She complains of abdominal pain, located epigastric, nonradiating, worse with throwing up, 9-10/10. not relieved with anything. She has nonbloody vomitus > 10x/day, mostly bile with continuous nausea. Due to her GI symptoms, she has been unable to keep medications down for diabetes, she is normally compliant . No recent changes in diet, no new medications aside from steroids, diarrhea, chest pain, shortness of breath, fevers, chills. Due to no improvement in her symptoms she called 911. HOSPITAL COURSE: In the ER, vital signs are stable. CT of the abdomen and pelvis and chest x-ray showed no acute abnormality. WBC 11.8, blood sugar 479, pH within normal limits. Lactic acid 2.9, serum ketones elevated. The patient was seen to be on Bactrim; however, this was only started 2 days ago and she has previously tolerated this medication well. The patient was ultimately admitted for intractable vomiting likely secondary to hyperglycemic hyperosmolar syndrome, gastroparesis. Intractable vomiting/abdominal pain likely secondary to hyperglycemic hyperosmolar syndrome, gastroparesis -Improved -ABXR showed no concerns for obstruction -BS improving -UDS neg for cannabinoid -CT neg -Patient did well with advancing diet. C/w individual treatment of issues below Hyperglycemic hyperosmolar syndrome (HHS) possibly multifactorial 2/2 to steroid use, in combination of left large toe infection/left foot cellulitis -Hx of DM type II, uncontrolled. -BS better controlled -HbA1c 10 -Stopped steroids several days ago -Left large infected toe/left foot cellulitis with bone bx done several days ago, managed by Dr. Rose -Encouraging adequate fluid intake -C/w insulin BID, abx treatment of infection Gastroparesis 2/2 to uncontrolled DM type II -Follows with GI provider in [place], name unknown -CT abd/pelvis above -C/w reglan , control of DM above Left hallux osteomyelitis, + MRSA / left foot cellulitis -Recent surgery, states they took "bone out" and cleaned out. On bactrim on admission, switched to vancomycin by podiatry on 02/25/21 -02/27: Distal phalanx was removed using a #15 blade. The proximal tissue appeared without obvious infection. Continue Vashe dressings and Hydrofera Blue changed daily. -Culture done as o/p: MRSA -F/u blood cultures -Was on Vancomycin here. -Dr. Rose suggests to switch back to bactrim at discharge, podiatry to follow up Hemorrhoids -Anusol IN Wrist swelling -Per patient recently started on steroids for swelling by orthopedics outpatient, improving -Monitor while off steroids. Fibromyalgia -c/w home med Neuropathy -not on gabapentin DDD -tylenol PRN Asthma -albuterol PRN Depression -C/w home meds DISCHARGE MEDICATIONS: Please see below. ALLERGIES: Please see below. PHYSICAL EXAMINATION: VS: Please see below CONSTITUTIONAL: resting in bed, AAO x 3 EYES: PERRLA, EOM intact HEENT, MOUTH: Normocephalic, atraumatic, dry mucous membranes NECK: SUPPLE, no JVD, no lymphadenopathy, no carotid bruit CV: Regular rate and rhythm, S1S2 normal, no murmurs/rubs/gallops RESPIRATORY: Clear to auscultation bilaterally, no rales/rhonchi/wheezes GI: mild epigastaric abdominal pain. obese abd, BS positive in 4 quadrants, soft, nondistended, no rebound or guarding, no organomegaly : Deferred MUSCULOSKELETAL: Normal ROM. No cyanosis, clubbing, swelling, joint deformity, left foot edema improving INTEGUMENTARY: Erythema and swelling of left foot extending to left ankle, slightly above, outlined with marker-improving . Left large toe wound (L 2.5 cm x W 1.45 cm x D 1.5 cm). No foul smell or abnormal discharge from area of wound. NEUROLOGIC: Cranial Nerves II-XII are intact, no focal deficits PSYCHIATRIC: Mood and affect are normal LABORATORY DATA: Please see below IMAGING: ABXR: Unremarkable CXR and CT abd/pelvis- see chart MICRO: COVID neg UA neg Blood cultures Ng to date PROGNOSIS: Good ACTIVITY: As tolerated DIET: consistent carb DISPOSITION: 01 Home, Self-Care. DISCHARGE INSTRUCTIONS / ITEMS TO FOLLOWUP ON ON OUTPATIENT: 1. Please follow up with your primary care provider and Dr. Rose after this coming holiday week. 2. If you should have worsening blood sugars, headache, increased urination, lightheadedness, fevers, chills, increased redness or swelling of foot please contact a medical professional soon. DISCHARGE CONDITION: Stable TIME SPENT ON DISCHARGE: 354 minutes. Vital Signs/I&Os Vital Signs Date Time Temp Pulse Resp B/P (MAP) Pulse Ox O2 Delivery O2 Flow Rate FiO2 02/28/21 08:00 97.0 68 18 118/68 (85) 99 Room Air I&O- Last 24 Hours up to 6 AM 02/28/21 06:00 Intake Total 2820 ml Output Total 400 ml Balance 2420 ml Laboratory Data Labs 24H Laboratory Tests 2 02/28/21 05:37: Nucleated Red Blood Cells % (auto) 0.0, Anion Gap 9, Glomerular Filtration Rate > 60.0, Calcium Level 8.3L, Total Bilirubin 0.7, Aspartate Amino Transf (AST/SGOT) 47H, Alanine Aminotransferase (ALT/SGPT) 63, Alkaline Phosphatase 100, Total Protein 7.2, Albumin 3.0L, Albumin/Globulin Ratio 0.7L 02/28/21 09:00: Vancomycin Level Trough 20.6H 02/28/21 11:30: Bedside Glucose (Misc Panel) 226H CBC/BMP Laboratory Tests 02/28/21 05:37 FSBS Laboratory Tests Test 02/28/21 11:30 Range/Units Bedside Glucose (Misc Panel) 226 70-105 MG/DL Microbiology Microbiology 02/25/21 Blood Culture - Preliminary, Resulted No Growth after 72 hours. All specime... 02/25/21 Blood Culture - Preliminary, Resulted No Growth after 72 hours. All specime... 02/25/21 Urine Culture - Final, Complete 02/25/21 Respiratory Virus Panel (PCR) (CHRISTOPHER) - Final, Complete Discharge Medications Scheduled Bupropion HCl (Bupropion Xl) 300 Mg Tab.er.24h, 300 MG PO DAILY, (Reported) Docusate Sodium (Colace) 100 Mg Capsule, 100 MG PO BID Dulaglutide (Trulicity) 4.5 Mg/0.5 Ml Pen.injctr, 4.5 MG SC QWEEK, (Reported) SUNDAY Fluticasone Furoate (Arnuity Ellipta) 100 Mcg/Act Inh, 1 PUFF INH DAILY, (Reported) Insulin Aspart (Novolog Flexpen) 100 Unit/1 Ml Insuln.pen, 1 DOSE SC AC, (Reported) PER SLIDING SCALE. NOT TO GO OVER 10 UNITS Insulin Glargine,Hum.rec.anlog (Basaglar Kwikpen U-100) 100 Unit/1 Ml Insuln.pen, 78 UNIT SC QHS Insulin Glargine,Hum.rec.anlog (Basaglar Kwikpen U-100) 100 Unit/1 Ml Insuln.pen, 28 UNIT SC QAM Metformin HCl (Metformin HCl) 1,000 Mg Tab, 1,000 MG PO BID, (Reported) Sulfamethoxazole/Trimethoprim (Bactrim Ds Tablet) 1 Each Tablet, 1 TAB PO BID, (Reported) FOR 14 DAYS, FILLED 02/23/21 Scheduled PRN Albuterol Sulfate (Ventolin Hfa) 108 Mcg/Act Aer, 2 PUFF INH QID PRN for SHORTNESS OF BREATH, (Reported) Hydrocortisone Acetate (Anucort-Hc) 25 Mg Supp.rect, 25 MG IN Q12HP PRN for H EMORRHOIDS Metoclopramide HCl (Metoclopramide HCl) 5 Mg Tablet, 5 MG PO BIDP PRN for CONSTIPATION, (Reported) BEFORE MEALS Polyethylene Glycol 3350 (Miralax) 17 Gm Powd.pack, 1 PKT PO DAILYPRN PRN for CONSTIPATION Allergies Coded Allergies: canagliflozin (Verified Allergy, Mild, RASH, 02/25/21) latex (Verified Allergy, Mild, RASH, 02/25/21) gabapentin (Verified Adverse Reaction, Mild, n/v, 02/25/21) Maru Ortega MD Feb 28, 2021 21:15
== END 2021-02-28 14:40 | disposition home or self-care (01) | DRG 630 ==
LOC: M ED 02:26 → M ED INP 07:20 → ENRESERV 15:29 → M MSPAV 17:25
PROVIDERS: ADMIT Internal Medicine; ATTEND Internal Medicine
PROC: 0QBR0ZZ Excision of Left Toe Phalanx, Open Approach (ICD-10-PCS; principal; 2021-02-27)
DX: E11.00 Type 2 diabetes mellitus with hyperosmolarity without nonketotic hyperglycemic-hyperosmolar coma (NKHHC) (principal); E11.43 Type 2 diabetes mellitus with diabetic autonomic (poly)neuropathy; B95.62 Methicillin resistant Staphylococcus aureus infection as the cause of diseases classified elsewhere; J45.909 Unspecified asthma, uncomplicated; F32.9 Major depressive disorder, single episode, unspecified; M79.7 Fibromyalgia; K64.8 Other hemorrhoids; Z79.899 Other long term (current) drug therapy; Z79.4 Long term (current) use of insulin; Z91.040 Latex allergy status; Z88.8 Allergy status to other drugs, medicaments and biological substances

== ENCOUNTER → 2021-03-08 | Outpatient (REF) | payer MEDICARE, MEDICAID ==
[~2021-03-08] MED LIST changes: +AMLO1TAB24 PO; +ANUSHCSU PR; +CLON0.1D3 TOP; +COLA100C5 PO; +DULA4.5P SC; +HYDR25SU23 PR; +MIRA1POW3 PO
== END ==
LOC: M LAB REF 11:27
PROVIDERS: ATTEND Podiatrist Foot & Ankle Surgery
DX: M86.172 Other acute osteomyelitis, left ankle and foot (principal)

== ENCOUNTER 2021-03-18 14:02 | Inpatient (IN) | payer MEDICARE, MEDICAID ==
[~2021-03-18] VITALS: Ht 167.6 cm; Wt 109.2 kg
[~2021-03-18 14:02] MED LIST changes: -HYDR25SU23 PR
[2021-03-18 14:52] VITALS: BP 122/70
[2021-03-18] MEDS ORDERED: GLUCAGON INJ 1MG VIAL SC PRN (16:00)
[2021-03-18] MEDS ORDERED: GLUCOSE 4GM CHEW TABLET PO PRN (16:00)
[2021-03-18] MEDS ORDERED: DEXTROSE 50% 50 ML SYRINGE IV PRN (16:00)
[2021-03-18 16:29] LABS: HEMATOCRIT 36.3 % (36.0-47.0); HEMOGLOBIN 11.7 g/dl (12.0-15.5); MEAN CORPUSCULAR HEMOGLOBIN 26.1 pg (27.0-33.0); MEAN CORPUSCULAR HGB CONC 32.2 g/dl (32.0-36.5); MEAN CORPUSCULAR VOLUME 80.8 fl (80.0-96.0); PLATELET COUNT, AUTOMATED 229 10^3/uL (150-450); RED BLOOD COUNT 4.49 10^6/uL (4.00-5.40); WHITE BLOOD COUNT 5.5 10^3/uL (4.0-10.0)
[2021-03-18 16:46] LABS: INR 1.39; PROTHROMBIN TIME 17.4 SECONDS (12.7-14.5)
[2021-03-18 16:47] LABS: PARTIAL THROMBOPLASTIN TIME 46.5 SECONDS (25.9-37.0)
[2021-03-18 16:54] LABS: ALBUMIN 2.9 GM/DL (3.2-5.2); ALT/SGPT 50 U/L (12-78); BILIRUBIN,TOTAL 0.4 MG/DL (0.2-1.0); BLOOD UREA NITROGEN 11 MG/DL (7-18); CALCIUM LEVEL 9.6 MG/DL (8.5-10.1); CARBON DIOXIDE LEVEL 28 MEQ/L (21-32); CHLORIDE LEVEL 99 MEQ/L (98-107); CREATININE FOR GFR 0.63 MG/DL (0.55-1.30); GLOMERULAR FILTRATION RATE > 60.0 (>58); GLUCOSE, FASTING 375 MG/DL (70-100); POTASSIUM SERUM 4.5 MEQ/L (3.5-5.1); SODIUM LEVEL 134 MEQ/L (136-145); TOTAL PROTEIN 7.3 GM/DL (6.4-8.2)
[2021-03-18] MEDS ORDERED: HOME MED LIST COMPLETE! XX SCH (16:55)
[2021-03-18] MEDS ORDERED: HYDR25SU23 PR (16:55)
[2021-03-18] MEDS ORDERED: BASA100I SC ×2 (16:55)
[2021-03-18] MEDS ORDERED: VANCOMYCIN HCL 1,000 MG, VIAL MATE ADAPTER 1 EACH in NS 250 ML IV ONE (17:00)
[2021-03-18] MEDS ORDERED: ALBUTEROL SULFATE 2.5 MG/0.5 ML INH NEB SOLN NEB PRN (17:35)
[2021-03-18] MEDS: HumaLOG INSULIN (NovoLOG) PER UNIT SC SCH ×2 (18:08→21:23)
[2021-03-18] MEDS: FLUTICASONE HFA 110 MCG 12 GM INHALER (FLOVENT) INH SCH (19:57)
[2021-03-18] MEDS: HEPARIN SOD (PORCINE) 5000UNITS/ML 1ML VIAL/SYRINGE SC SCH (21:00)
[2021-03-18] MEDS: LEVEMIR (INSULIN DETEMIR) 1 UNITS/0.01ML SC SCH (21:24)
[2021-03-18] MEDS: VANCOMYCIN HCL 1,000 MG, VIAL MATE ADAPTER 1 EACH in NS 250 ML IV SCH (21:31)
[2021-03-18 22:00] VITALS: BP 154/66
[2021-03-18] MEDS: PIPERACILLIN/TAZOBACTAM SOD 3.375 GM in D5W MINI-BAG PLUS 50 ML IV SCH (23:59)
[2021-03-19] VITALS (9 sets, daily range): BP systolic 118–156; BP diastolic 78–98
[2021-03-19] MEDS: PIPERACILLIN/TAZOBACTAM SOD 3.375 GM in D5W MINI-BAG PLUS 50 ML IV SCH ×5 (00:04→23:25)
[2021-03-19] MEDS: VANCOMYCIN HCL 1,000 MG, VIAL MATE ADAPTER 1 EACH in NS 250 ML IV SCH ×4 (02:14→20:11)
[2021-03-19] MEDS ORDERED: NS 1,000 ML IV SCH ×2 (04:00→18:00)
[2021-03-19 06:30] LABS: BASO % 0.4 % (0.0-1.0); EOS # 0.2 10^3/uL (0.0-0.5); EOS % 4.7 % (0.0-3.0); HEMATOCRIT 32.8 % (36.0-47.0); HEMOGLOBIN 10.4 g/dl (12.0-15.5); LYMPH % 44.1 % (24.0-44.0); MEAN CORPUSCULAR HGB CONC 31.7 g/dl (32.0-36.5); MONO # 0.3 10^3/uL (0.0-0.8); MONO % 6.7 % (2.0-8.0); NEUTROPHILS % 43.2 % (36.0-66.0); PLATELET COUNT, AUTOMATED 192 10^3/uL (150-450); WHITE BLOOD COUNT 4.5 10^3/uL (4.0-10.0)
[2021-03-19 06:58] LABS: BLOOD UREA NITROGEN 10 MG/DL (7-18); CALCIUM LEVEL 8.6 MG/DL (8.5-10.1); CARBON DIOXIDE LEVEL 25 MEQ/L (21-32); CHLORIDE LEVEL 106 MEQ/L (98-107); CREATININE FOR GFR 0.53 MG/DL (0.55-1.30); GLOMERULAR FILTRATION RATE > 60.0 (>58); GLUCOSE, FASTING 240 MG/DL (70-100); SODIUM LEVEL 139 MEQ/L (136-145)
[2021-03-19] MEDS ORDERED: BUPIVACAINE HCL 0.5% 30 ML VIAL As Ordered ONE (07:35)
[2021-03-19] MEDS ORDERED: LIDOCAINE 1% SDV 30ML VIAL As Ordered ONE (07:35)
[2021-03-19] MEDS: FLUTICASONE HFA 110 MCG 12 GM INHALER (FLOVENT) INH SCH ×2 (07:43→19:48)
[2021-03-19] MEDS: LEVEMIR (INSULIN DETEMIR) 1 UNITS/0.01ML SC SCH ×2 (09:00→21:45)
[2021-03-19] MEDS ORDERED: INFLUENZA QUADRIVALENT PF VACCINE 0.5ML SYRINGE IM ONE (09:00)
[2021-03-19] MEDS: HEPARIN SOD (PORCINE) 5000UNITS/ML 1ML VIAL/SYRINGE SC SCH ×2 (09:00→19:43)
[2021-03-19] MEDS: HumaLOG INSULIN (NovoLOG) PER UNIT SC SCH ×4 (09:01→21:45)
[2021-03-19] MEDS ORDERED: MIDAZOLAM INJ 2MG/2ML VIAL (J2250 PER 1MG) As Ordered ONE (09:47)
[2021-03-19] MEDS ORDERED: fentaNYL 100 MCG/2 ML INJECTION As Ordered ONE (09:49)
[2021-03-19] MEDS ORDERED: propofoL 200 MG/20 ML VIAL As Ordered ONE (09:49)
[2021-03-19] MEDS ORDERED: LIDOCAINE 2% 100MG/5ML SDV (FOR ANES.) As Ordered ONE (09:52)
[2021-03-19] MEDS ORDERED: HumaLOG INSULIN (NovoLOG) PER UNIT As Ordered ONE (10:16)
[2021-03-19] MEDS ORDERED: LR 1,000 ML IV SCH (11:00)
[2021-03-19] MEDS ORDERED: ONDANSETRON 4MG/2ML VIAL IV PRN (11:00)
[2021-03-19] MEDS ORDERED: fentaNYL 100 MCG/2 ML INJECTION IV PRN (11:00)
[2021-03-19] MEDS ORDERED: PERCOCET 5MG/325MG TAB PO PRN ×3 (11:00→17:35)
[2021-03-19] MEDS ORDERED: METOCLOPRAMIDE INJ 10MG/2ML VIAL (J2765 PER 1) IV PRN (11:00)
[2021-03-19] MEDS ORDERED: PERCOCET 5MG/325MG TAB PO ONE (18:00)
[2021-03-19] MEDS: KETOROLAC 30 MG/ML 1ML VIAL IV SCH ×2 (18:38→23:23)
[2021-03-20] MEDS: VANCOMYCIN HCL 1,000 MG, VIAL MATE ADAPTER 1 EACH in NS 250 ML IV SCH (01:32)
[2021-03-20 02:00] VITALS: BP 119/79
[2021-03-20] MEDS: KETOROLAC 30 MG/ML 1ML VIAL IV SCH (05:02)
[2021-03-20] MEDS: PIPERACILLIN/TAZOBACTAM SOD 3.375 GM in D5W MINI-BAG PLUS 50 ML IV SCH (05:03)
[2021-03-20 06:00] VITALS: BP 104/61
[2021-03-20 07:44] LABS: BASO % 0.6 % (0.0-1.0); EOS # 0.2 10^3/uL (0.0-0.5); EOS % 3.2 % (0.0-3.0); HEMATOCRIT 34.3 % (36.0-47.0); HEMOGLOBIN 10.7 g/dl (12.0-15.5); LYMPH # 1.3 10^3/uL (1.5-5.0); LYMPH % 25.2 % (24.0-44.0); MEAN CORPUSCULAR HEMOGLOBIN 25.9 pg (27.0-33.0); MEAN CORPUSCULAR HGB CONC 31.2 g/dl (32.0-36.5); MEAN CORPUSCULAR VOLUME 83.1 fl (80.0-96.0); MONO # 0.5 10^3/uL (0.0-0.8); MONO % 8.7 % (2.0-8.0); NEUTROPHILS # 3.3 10^3/uL (1.5-8.5); NEUTROPHILS % 61.7 % (36.0-66.0); PLATELET COUNT, AUTOMATED 224 10^3/uL (150-450); RED BLOOD COUNT 4.13 10^6/uL (4.00-5.40); WHITE BLOOD COUNT 5.3 10^3/uL (4.0-10.0)
[2021-03-20] MEDS: FLUTICASONE HFA 110 MCG 12 GM INHALER (FLOVENT) INH SCH ×2 (08:00→22:22)
[2021-03-20 08:24] LABS: CALCIUM LEVEL 8.4 MG/DL (8.5-10.1); CREATININE FOR GFR 2.12 MG/DL (0.55-1.30); GLOMERULAR FILTRATION RATE 27.2 (>58)
[2021-03-20 08:25] LABS: VANCOMYCIN LEVEL TROUGH 45.4 UG/ML (10.0-20.0)
[2021-03-20] MEDS: LEVEMIR (INSULIN DETEMIR) 1 UNITS/0.01ML SC SCH ×2 (08:44→20:46)
[2021-03-20] MEDS: HEPARIN SOD (PORCINE) 5000UNITS/ML 1ML VIAL/SYRINGE SC SCH ×2 (08:45→20:46)
[2021-03-20] MEDS: HumaLOG INSULIN (NovoLOG) PER UNIT SC SCH ×4 (08:45→20:21)
[2021-03-20] MEDS: NS 1,000 ML IV SCH ×3 (10:16→18:49)
[2021-03-20] MEDS: METOCLOPRAMIDE 5 MG TAB PO PRN (13:33)
[2021-03-20 14:00] VITALS: BP 134/80
[2021-03-20] MEDS: PIPERACILLIN/TAZOBACTAM SOD 2.25 GM in D5W MINI-BAG PLUS 50 ML IV SCH ×2 (15:00→20:47)
[2021-03-20 16:50] LABS: CALCIUM LEVEL 8.1 MG/DL (8.5-10.1); CREATININE FOR GFR 2.63 MG/DL (0.55-1.30); GLOMERULAR FILTRATION RATE 21.2 (>58); POTASSIUM SERUM 4.1 MEQ/L (3.5-5.1)
[2021-03-20] MEDS ORDERED: NS 1,000 ML IV SCH (18:40)
[2021-03-20 22:00] VITALS: BP 139/74
[2021-03-21] MEDS: PIPERACILLIN/TAZOBACTAM SOD 2.25 GM in D5W MINI-BAG PLUS 50 ML IV SCH ×4 (01:04→21:09)
[2021-03-21 06:00] VITALS: BP 144/65
[2021-03-21 06:49] LABS: BASO % 0.6 % (0.0-1.0); EOS # 0.1 10^3/uL (0.0-0.5); EOS % 2.4 % (0.0-3.0); HEMATOCRIT 30.5 % (36.0-47.0); HEMOGLOBIN 9.7 g/dl (12.0-15.5); LYMPH # 1.2 10^3/uL (1.5-5.0); LYMPH % 23.9 % (24.0-44.0); MEAN CORPUSCULAR HGB CONC 31.8 g/dl (32.0-36.5); MEAN CORPUSCULAR VOLUME 81.8 fl (80.0-96.0); MONO # 0.4 10^3/uL (0.0-0.8); MONO % 7.8 % (2.0-8.0); NEUTROPHILS # 3.2 10^3/uL (1.5-8.5); NEUTROPHILS % 64.7 % (36.0-66.0); PLATELET COUNT, AUTOMATED 179 10^3/uL (150-450); RED BLOOD COUNT 3.73 10^6/uL (4.00-5.40)
[2021-03-21 07:16] LABS: CALCIUM LEVEL 8.1 MG/DL (8.5-10.1); CREATININE FOR GFR 3.87 MG/DL (0.55-1.30); GLOMERULAR FILTRATION RATE 13.6 (>58); POTASSIUM SERUM 4.3 MEQ/L (3.5-5.1); VANCOMYCIN RANDOM 37.9 UG/ML
[2021-03-21] MEDS: FLUTICASONE HFA 110 MCG 12 GM INHALER (FLOVENT) INH SCH ×2 (08:00→19:58)
[2021-03-21] MEDS ORDERED: VANCOMYCIN HCL 1,000 MG, VIAL MATE ADAPTER 1 EACH in NS 250 ML IV SCH (09:00)
[2021-03-21] MEDS: NS 1,000 ML IV SCH (09:35)
[2021-03-21] MEDS: HumaLOG INSULIN (NovoLOG) PER UNIT SC SCH ×4 (09:36→19:56)
[2021-03-21] MEDS: HEPARIN SOD (PORCINE) 5000UNITS/ML 1ML VIAL/SYRINGE SC SCH ×2 (09:37→21:09)
[2021-03-21] MEDS: LEVEMIR (INSULIN DETEMIR) 1 UNITS/0.01ML SC SCH ×2 (09:37→21:09)
[2021-03-21 14:00] VITALS: BP 154/81
[2021-03-21] MEDS: ONDANSETRON 4MG/2ML VIAL IV PRN (17:43)
[2021-03-21 22:00] VITALS: BP 146/86
[2021-03-22] MEDS: PIPERACILLIN/TAZOBACTAM SOD 2.25 GM in D5W MINI-BAG PLUS 50 ML IV SCH ×2 (02:45→09:28)
[2021-03-22 06:20] VITALS: BP 112/74
[2021-03-22 08:05] LABS: BASO % 0.6 % (0.0-1.0); EOS # 0.1 10^3/uL (0.0-0.5); EOS % 2.9 % (0.0-3.0); HEMATOCRIT 28.4 % (36.0-47.0); LYMPH # 1.4 10^3/uL (1.5-5.0); LYMPH % 28.2 % (24.0-44.0); MEAN CORPUSCULAR HEMOGLOBIN 26.1 pg (27.0-33.0); MEAN CORPUSCULAR HGB CONC 31.7 g/dl (32.0-36.5); MEAN CORPUSCULAR VOLUME 82.3 fl (80.0-96.0); MONO # 0.4 10^3/uL (0.0-0.8); NEUTROPHILS # 2.9 10^3/uL (1.5-8.5); NEUTROPHILS % 59.7 % (36.0-66.0); PLATELET COUNT, AUTOMATED 179 10^3/uL (150-450); RED BLOOD COUNT 3.45 10^6/uL (4.00-5.40); WHITE BLOOD COUNT 4.9 10^3/uL (4.0-10.0)
[2021-03-22] MEDS: FLUTICASONE HFA 110 MCG 12 GM INHALER (FLOVENT) INH SCH ×2 (08:15→19:44)
[2021-03-22 08:21] LABS: CALCIUM LEVEL 7.9 MG/DL (8.5-10.1); CREATININE FOR GFR 5.34 MG/DL (0.55-1.30); GLOMERULAR FILTRATION RATE 9.4 (>58); POTASSIUM SERUM 4.3 MEQ/L (3.5-5.1); VANCOMYCIN RANDOM 33.1 UG/ML
[2021-03-22] MEDS: HumaLOG INSULIN (NovoLOG) PER UNIT SC SCH ×4 (08:31→20:20)
[2021-03-22] MEDS: NS 1,000 ML IV SCH (09:28)
[2021-03-22] MEDS: HEPARIN SOD (PORCINE) 5000UNITS/ML 1ML VIAL/SYRINGE SC SCH ×2 (09:29→20:32)
[2021-03-22] MEDS: LEVEMIR (INSULIN DETEMIR) 1 UNITS/0.01ML SC SCH ×2 (09:29→20:31)
[2021-03-22] MEDS: PREPARATION H SUPP (HEMORRHOID) PR SCH ×2 (12:35→20:32)
[2021-03-22 14:00] VITALS: BP 127/73
[2021-03-22 14:37] LABS: APPEARANCE, URINE CLOUDY (CLEAR); BACTERIA, URINE AUTO NEGATIVE (NEGATIVE); BILIRUBIN, URINE AUTO NEGATIVE (NEGATIVE); BLOOD, URINE BLOOD NEGATIVE (NEGATIVE); COLOR, URINE YELLOW (YELLOW); GLUCOSE, URINE (UA) AUTO 1+ mg/dL (NEGATIVE); KETONE, URINE AUTO NEGATIVE (NEGATIVE); LEUKOCYTE ESTERASE, URINE AUTO 1+ (NEGATIVE); NITRITE, URINE AUTO NEGATIVE (NEGATIVE); PROTEIN, URINE AUTO 1+ mg/dL (NEGATIVE); RBC, URINE AUTO 7 /HPF (0-3); SPECIFIC GRAVITY URINE AUTO 1.006 (1.002-1.035); SQUAMOUS EPITHELIAL CELL UR AU 18 /HPF (0-6); UROBILINOGEN, URINE AUTO 0.2 mg/dL (0.0-2.0); WBC, URINE AUTO 9 /HPF (0-3)
[2021-03-22] MEDS: AMPICILLIN SOD/SULBACTAM SOD 3 GM in D5W MINI-BAG PLUS 100 ML IV SCH (15:40)
[2021-03-22] MEDS: ONDANSETRON 4MG/2ML VIAL IV PRN (17:37)
[2021-03-22 21:00] VITALS: BP 162/80
[2021-03-22 22:50] VITALS: BP 150/78
[2021-03-23 05:29] VITALS: BP 127/70
[2021-03-23] MEDS: FLUTICASONE HFA 110 MCG 12 GM INHALER (FLOVENT) INH SCH ×2 (06:58→19:54)
[2021-03-23 07:28] LABS: BASO % 0.3 % (0.0-1.0); EOS # 0.2 10^3/uL (0.0-0.5); EOS % 2.4 % (0.0-3.0); HEMATOCRIT 33.8 % (36.0-47.0); HEMOGLOBIN 10.7 g/dl (12.0-15.5); MEAN CORPUSCULAR HEMOGLOBIN 26.2 pg (27.0-33.0); MEAN CORPUSCULAR HGB CONC 31.7 g/dl (32.0-36.5); MEAN CORPUSCULAR VOLUME 82.8 fl (80.0-96.0); MONO # 0.3 10^3/uL (0.0-0.8); MONO % 4.2 % (2.0-8.0); NEUTROPHILS # 5.6 10^3/uL (1.5-8.5); NEUTROPHILS % 78.5 % (36.0-66.0); PLATELET COUNT, AUTOMATED 251 10^3/uL (150-450); RED BLOOD COUNT 4.08 10^6/uL (4.00-5.40); WHITE BLOOD COUNT 7.2 10^3/uL (4.0-10.0)
[2021-03-23] MEDS: HumaLOG INSULIN (NovoLOG) PER UNIT SC SCH ×4 (07:30→20:01)
[2021-03-23 07:46] LABS: BLOOD UREA NITROGEN 32 MG/DL (7-18); CARBON DIOXIDE LEVEL 19 MEQ/L (21-32); CHLORIDE LEVEL 112 MEQ/L (98-107); CREATININE FOR GFR 6.24 MG/DL (0.55-1.30); GLOMERULAR FILTRATION RATE 7.8 (>58); GLUCOSE, FASTING 90 MG/DL (70-100); POTASSIUM SERUM 4.1 MEQ/L (3.5-5.1); SODIUM LEVEL 142 MEQ/L (136-145)
[2021-03-23 08:00] VITALS: BP 160/84
[2021-03-23] MEDS: NS 1,000 ML IV SCH (08:12)
[2021-03-23] MEDS: HEPARIN SOD (PORCINE) 5000UNITS/ML 1ML VIAL/SYRINGE SC SCH ×2 (08:51→20:17)
[2021-03-23] MEDS: PREPARATION H SUPP (HEMORRHOID) PR SCH ×2 (08:52→20:09)
[2021-03-23] MEDS: LEVEMIR (INSULIN DETEMIR) 1 UNITS/0.01ML SC SCH ×2 (09:00→20:09)
[2021-03-23] MEDS: SODIUM BICARBONATE 75 MEQ in NS 0.45% 1,000 ML IV SCH (13:17)
[2021-03-23 13:43] VITALS: BP 164/77
[2021-03-23 13:48] LABS: HEPATITIS B SURFACE ANTIBODY NEGATIVE (POSITIVE)
[2021-03-23 13:59] LABS: HEPATITIS B SURFACE ANTIGEN NEGATIVE (NEGATIVE)
[2021-03-23 14:00] VITALS: BP 164/77
[2021-03-23 14:27] LABS: HEPATITIS B CORE ANTIBODY IGM NEGATIVE (NEGATIVE); HEPATITIS C VIRUS ABY INDEX 0.1 INDEX (<0.8)
[2021-03-23] MEDS: AMPICILLIN SOD/SULBACTAM SOD 3 GM in D5W MINI-BAG PLUS 100 ML IV SCH (15:41)
[2021-03-23] MEDS ORDERED: FUROSEMIDE 20MG/2ML VIAL (J1940) IV ONE (20:00)
[2021-03-23 22:00] VITALS: BP_SYST 131; BP_SYST 141; BP_DIAS 57; BP_DIAS 76
[2021-03-24] VITALS (9 sets, daily range): BP systolic 130–186; BP diastolic 56–108
[2021-03-24 06:46] LABS: BASO % 0.2 % (0.0-1.0); EOS # 0.2 10^3/uL (0.0-0.5); EOS % 3.7 % (0.0-3.0); HEMATOCRIT 31.4 % (36.0-47.0); HEMOGLOBIN 9.8 g/dl (12.0-15.5); LYMPH # 1.1 10^3/uL (1.5-5.0); LYMPH % 19.8 % (24.0-44.0); MEAN CORPUSCULAR HEMOGLOBIN 25.9 pg (27.0-33.0); MEAN CORPUSCULAR HGB CONC 31.2 g/dl (32.0-36.5); MEAN CORPUSCULAR VOLUME 83.1 fl (80.0-96.0); MONO # 0.3 10^3/uL (0.0-0.8); MONO % 5.8 % (2.0-8.0); NEUTROPHILS # 3.8 10^3/uL (1.5-8.5); NEUTROPHILS % 69.9 % (36.0-66.0); PLATELET COUNT, AUTOMATED 188 10^3/uL (150-450); RED BLOOD COUNT 3.78 10^6/uL (4.00-5.40); WHITE BLOOD COUNT 5.4 10^3/uL (4.0-10.0)
[2021-03-24 07:09] LABS: CALCIUM LEVEL 8.7 MG/DL (8.5-10.1); CREATININE FOR GFR 6.72 MG/DL (0.55-1.30); GLOMERULAR FILTRATION RATE 7.2 (>58); POTASSIUM SERUM 4.3 MEQ/L (3.5-5.1)
[2021-03-24] MEDS: HumaLOG INSULIN (NovoLOG) PER UNIT SC SCH ×4 (07:30→20:00)
[2021-03-24] MEDS: FLUTICASONE HFA 110 MCG 12 GM INHALER (FLOVENT) INH SCH ×2 (08:22→20:01)
[2021-03-24] MEDS: LEVEMIR (INSULIN DETEMIR) 1 UNITS/0.01ML SC SCH ×2 (08:29→20:00)
[2021-03-24] MEDS: HEPARIN SOD (PORCINE) 5000UNITS/ML 1ML VIAL/SYRINGE SC SCH ×2 (08:29→20:29)
[2021-03-24] MEDS: PREPARATION H SUPP (HEMORRHOID) PR SCH ×2 (09:00→20:29)
[2021-03-24] MEDS ORDERED: SODIUM CHLORIDE 0.9% 1000ML IV PRN (09:10)
[2021-03-24] MEDS ORDERED: HYDROMORPHONE HCL 0.5 MG/ 0.5 ML SYRINGE (J1170 PER 1) IV ONE (09:15)
[2021-03-24] MEDS: SODIUM BICARBONATE 75 MEQ in NS 0.45% 1,000 ML IV SCH (10:32)
[2021-03-24 13:18] LABS: MAGNESIUM LEVEL 2.1 MG/DL (1.8-2.4); THYROID STIMULATING HORMONE 3.04 uIU/ML (0.358-3.740)
[2021-03-24] MEDS: AMPICILLIN SOD/SULBACTAM SOD 3 GM in D5W MINI-BAG PLUS 100 ML IV SCH (14:32)
[2021-03-24] MEDS ORDERED: MIDAZOLAM INJ 2MG/2ML VIAL (J2250 PER 1MG) As Ordered ONE (15:38)
[2021-03-24] MEDS ORDERED: fentaNYL 100 MCG/2 ML INJECTION As Ordered ONE (15:39)
[2021-03-24] MEDS ORDERED: propofoL 200 MG/20 ML VIAL As Ordered ONE (15:41)
[2021-03-24] MEDS ORDERED: LIDOCAINE 2% 100MG/5ML SDV (FOR ANES.) As Ordered ONE (15:41)
[2021-03-24] MEDS: LIDOCAINE 1% SDV 30ML VIAL As Ordered ONE ×2 (16:30→16:45)
[2021-03-24] MEDS: BUPIVACAINE HCL 0.5% 30 ML VIAL As Ordered ONE ×2 (16:30→16:45)
[2021-03-24] MEDS ORDERED: LR 1,000 ML IV SCH (17:10)
[2021-03-24] MEDS ORDERED: ONDANSETRON 4MG/2ML VIAL IV PRN (17:10)
[2021-03-24] MEDS ORDERED: PERCOCET 5MG/325MG TAB PO PRN (17:10)
[2021-03-24] MEDS ORDERED: METOCLOPRAMIDE INJ 10MG/2ML VIAL (J2765 PER 1) IV PRN (17:10)
[2021-03-24] MEDS ORDERED: FUROSEMIDE 20MG/2ML VIAL (J1940) IV ONE (18:55)
[2021-03-24] MEDS: **hydrALAZINE** 10 MG TAB PO SCH ×2 (19:16→23:37)
[2021-03-24] MEDS: NITROGLYCERIN 2% OINT 1 GM *U/D* PKT TOP SCH ×2 (19:18→23:59)
[2021-03-25] VITALS (7 sets, daily range): BP systolic 130–191; BP diastolic 64–93
[2021-03-25] MEDS: **hydrALAZINE** 10 MG TAB PO SCH ×3 (05:13→17:58)
[2021-03-25] MEDS: NITROGLYCERIN 2% OINT 1 GM *U/D* PKT TOP SCH ×3 (05:19→17:59)
[2021-03-25 06:18] LABS: BASO % 0.5 % (0.0-1.0); EOS # 0.2 10^3/uL (0.0-0.5); EOS % 3.6 % (0.0-3.0); HEMATOCRIT 29.2 % (36.0-47.0); HEMOGLOBIN 9.3 g/dl (12.0-15.5); LYMPH % 21.7 % (24.0-44.0); MEAN CORPUSCULAR HEMOGLOBIN 25.9 pg (27.0-33.0); MEAN CORPUSCULAR HGB CONC 31.8 g/dl (32.0-36.5); MEAN CORPUSCULAR VOLUME 81.3 fl (80.0-96.0); MONO # 0.4 10^3/uL (0.0-0.8); MONO % 8.1 % (2.0-8.0); NEUTROPHILS # 2.9 10^3/uL (1.5-8.5); NEUTROPHILS % 65.2 % (36.0-66.0); PLATELET COUNT, AUTOMATED 182 10^3/uL (150-450); RED BLOOD COUNT 3.59 10^6/uL (4.00-5.40); WHITE BLOOD COUNT 4.4 10^3/uL (4.0-10.0)
[2021-03-25 06:26] LABS: CALCIUM LEVEL 7.8 MG/DL (8.5-10.1); CREATININE FOR GFR 5.18 MG/DL (0.55-1.30); GLOMERULAR FILTRATION RATE 9.7 (>58); POTASSIUM SERUM 4.1 MEQ/L (3.5-5.1)
[2021-03-25] MEDS: FLUTICASONE HFA 110 MCG 12 GM INHALER (FLOVENT) INH SCH ×2 (07:38→19:13)
[2021-03-25] MEDS: PREPARATION H SUPP (HEMORRHOID) PR SCH ×2 (08:44→21:00)
[2021-03-25] MEDS: LEVEMIR (INSULIN DETEMIR) 1 UNITS/0.01ML SC SCH ×2 (08:44→21:00)
[2021-03-25] MEDS: HumaLOG INSULIN (NovoLOG) PER UNIT SC SCH ×4 (08:45→21:00)
[2021-03-25] MEDS: HEPARIN SOD (PORCINE) 5000UNITS/ML 1ML VIAL/SYRINGE SC SCH ×2 (08:45→21:07)
[2021-03-25] MEDS: AMPICILLIN SOD/SULBACTAM SOD 3 GM in D5W MINI-BAG PLUS 100 ML IV SCH (15:00)
[2021-03-25] MEDS: METOCLOPRAMIDE 5 MG TAB PO PRN (17:58)
[2021-03-25 18:07] LABS: Lyme Disease IgG/IgM Antibodie <0.91 ISR (0.00-0.90); Lyme Disease IgM Ab Quantitati <0.80 index (0.00-0.79)
[2021-03-25] MEDS: amLODIPine 5 MG TAB PO SCH (18:46)
[2021-03-25] MEDS: diphenhydrAMINE 25MG CAP PO PRN (21:53)
[2021-03-26] MEDS: NITROGLYCERIN 2% OINT 1 GM *U/D* PKT TOP SCH ×4 (00:22→18:38)
[2021-03-26 02:00] VITALS: BP 132/68
[2021-03-26 06:00] VITALS: BP 155/96
[2021-03-26] MEDS: HEPARIN SOD (PORCINE) 5000UNITS/ML 1ML VIAL/SYRINGE SC SCH ×3 (06:12→21:00)
[2021-03-26] MEDS: diphenhydrAMINE 25MG CAP PO PRN ×2 (06:12→12:25)
[2021-03-26 06:24] LABS: BASO % 0.5 % (0.0-1.0); EOS # 0.1 10^3/uL (0.0-0.5); EOS % 3.2 % (0.0-3.0); HEMOGLOBIN 9.1 g/dl (12.0-15.5); LYMPH # 1.1 10^3/uL (1.5-5.0); LYMPH % 24.7 % (24.0-44.0); MEAN CORPUSCULAR HEMOGLOBIN 25.6 pg (27.0-33.0); MEAN CORPUSCULAR HGB CONC 31.4 g/dl (32.0-36.5); MEAN CORPUSCULAR VOLUME 81.5 fl (80.0-96.0); MONO # 0.3 10^3/uL (0.0-0.8); MONO % 7.2 % (2.0-8.0); NEUTROPHILS # 2.8 10^3/uL (1.5-8.5); NEUTROPHILS % 63.5 % (36.0-66.0); PLATELET COUNT, AUTOMATED 184 10^3/uL (150-450); RED BLOOD COUNT 3.56 10^6/uL (4.00-5.40); WHITE BLOOD COUNT 4.4 10^3/uL (4.0-10.0)
[2021-03-26 06:40] LABS: CALCIUM LEVEL 8.5 MG/DL (8.5-10.1); CREATININE FOR GFR 5.8 MG/DL (0.55-1.30); GLOMERULAR FILTRATION RATE 8.5 (>58); POTASSIUM SERUM 3.8 MEQ/L (3.5-5.1)
[2021-03-26 06:42] LABS: PHOSPHORUS LEVEL 5.2 MG/DL (2.5-4.9)
[2021-03-26] MEDS: FLUTICASONE HFA 110 MCG 12 GM INHALER (FLOVENT) INH SCH ×2 (07:02→19:06)
[2021-03-26] MEDS: HumaLOG INSULIN (NovoLOG) PER UNIT SC SCH ×4 (08:08→21:00)
[2021-03-26] MEDS: LEVEMIR (INSULIN DETEMIR) 1 UNITS/0.01ML SC SCH ×2 (08:09→21:00)
[2021-03-26] MEDS: amLODIPine 5 MG TAB PO SCH ×2 (08:09→21:00)
[2021-03-26] MEDS: PREPARATION H SUPP (HEMORRHOID) PR SCH ×2 (08:10→21:00)
[2021-03-26 14:00] VITALS: BP 163/80
[2021-03-26] MEDS: AMPICILLIN SOD/SULBACTAM SOD 3 GM in D5W MINI-BAG PLUS 100 ML IV SCH (15:35)
[2021-03-26 21:48] LABS: APPEARANCE, URINE HAZY (CLEAR); BACTERIA, URINE AUTO NEGATIVE (NEGATIVE); BILIRUBIN, URINE AUTO NEGATIVE (NEGATIVE); BLOOD, URINE BLOOD NEGATIVE (NEGATIVE); COLOR, URINE STRAW (YELLOW); GLUCOSE, URINE (UA) AUTO NEGATIVE (NEGATIVE); KETONE, URINE AUTO NEGATIVE (NEGATIVE); LEUKOCYTE ESTERASE, URINE AUTO TRACE (NEGATIVE); NITRITE, URINE AUTO NEGATIVE (NEGATIVE); PROTEIN, URINE AUTO NEGATIVE (NEGATIVE); RBC, URINE AUTO 1 /HPF (0-3); SPECIFIC GRAVITY URINE AUTO 1.004 (1.002-1.035); SQUAMOUS EPITHELIAL CELL UR AU 5 /HPF (0-6); UROBILINOGEN, URINE AUTO 0.2 mg/dL (0.0-2.0); WBC, URINE AUTO 5 /HPF (0-3)
[2021-03-26 22:00] VITALS: BP 124/66
[2021-03-27] MEDS: NITROGLYCERIN 2% OINT 1 GM *U/D* PKT TOP SCH ×4 (00:19→18:50)
[2021-03-27] MEDS: HEPARIN SOD (PORCINE) 5000UNITS/ML 1ML VIAL/SYRINGE SC SCH ×3 (05:54→20:58)
[2021-03-27 06:00] VITALS: BP 148/77
[2021-03-27 06:54] VITALS: BP 150/78
[2021-03-27] MEDS: FLUTICASONE HFA 110 MCG 12 GM INHALER (FLOVENT) INH SCH ×2 (07:12→20:43)
[2021-03-27] MEDS: HumaLOG INSULIN (NovoLOG) PER UNIT SC SCH ×4 (07:30→20:38)
[2021-03-27] MEDS: amLODIPine 5 MG TAB PO SCH ×2 (08:22→20:57)
[2021-03-27] MEDS: LEVEMIR (INSULIN DETEMIR) 1 UNITS/0.01ML SC SCH ×2 (08:23→20:58)
[2021-03-27] MEDS: PREPARATION H SUPP (HEMORRHOID) PR SCH (08:23)
[2021-03-27 12:09] LABS: BASO % 0.4 % (0.0-1.0); EOS # 0.2 10^3/uL (0.0-0.5); HEMOGLOBIN 8.3 g/dl (12.0-15.5); LYMPH # 1.2 10^3/uL (1.5-5.0); LYMPH % 22.7 % (24.0-44.0); MEAN CORPUSCULAR HGB CONC 31.9 g/dl (32.0-36.5); MEAN CORPUSCULAR VOLUME 81.5 fl (80.0-96.0); MONO # 0.3 10^3/uL (0.0-0.8); MONO % 5.8 % (2.0-8.0); NEUTROPHILS # 3.6 10^3/uL (1.5-8.5); NEUTROPHILS % 67.2 % (36.0-66.0); PLATELET COUNT, AUTOMATED 191 10^3/uL (150-450); RED BLOOD COUNT 3.19 10^6/uL (4.00-5.40); WHITE BLOOD COUNT 5.3 10^3/uL (4.0-10.0)
[2021-03-27 12:26] LABS: ALBUMIN 2.4 GM/DL (3.2-5.2); CALCIUM LEVEL 7.9 MG/DL (8.5-10.1); CREATININE FOR GFR 6.73 MG/DL (0.55-1.30); GLOMERULAR FILTRATION RATE 7.2 (>58); MAGNESIUM LEVEL 2.1 MG/DL (1.8-2.4); PHOSPHORUS LEVEL 5.3 MG/DL (2.5-4.9); POTASSIUM SERUM 4.3 MEQ/L (3.5-5.1)
[2021-03-27 12:27] LABS: CALCIUM LEVEL 8.5 MG/DL (8.5-10.1); CREATININE FOR GFR 6.42 MG/DL (0.55-1.30); GLOMERULAR FILTRATION RATE 7.6 (>58); MAGNESIUM LEVEL 2.2 MG/DL (1.8-2.4); PHOSPHORUS LEVEL 5.3 MG/DL (2.5-4.9); POTASSIUM SERUM 4.3 MEQ/L (3.5-5.1)
[2021-03-27 14:00] VITALS: BP 145/79
[2021-03-27] MEDS: AMPICILLIN SOD/SULBACTAM SOD 3 GM in D5W MINI-BAG PLUS 100 ML IV SCH (15:55)
[2021-03-27 18:44] LABS: PERCENT SATURATION 11.7 % (13.2-45.0)
[2021-03-27] MEDS: diphenhydrAMINE 25MG CAP PO PRN (21:06)
[2021-03-28] MEDS: NITROGLYCERIN 2% OINT 1 GM *U/D* PKT TOP SCH ×5 (00:04→23:08)
[2021-03-28] MEDS: HEPARIN SOD (PORCINE) 5000UNITS/ML 1ML VIAL/SYRINGE SC SCH ×3 (05:30→20:24)
[2021-03-28 06:00] VITALS: BP 139/90
[2021-03-28] MEDS: FLUTICASONE HFA 110 MCG 12 GM INHALER (FLOVENT) INH SCH ×2 (07:17→20:53)
[2021-03-28] MEDS: HumaLOG INSULIN (NovoLOG) PER UNIT SC SCH ×4 (07:30→20:04)
[2021-03-28] MEDS ORDERED: cloNIDine HCL 0.1 MG/24 HR PATCH TOP SCH (09:00)
[2021-03-28] MEDS: LEVEMIR (INSULIN DETEMIR) 1 UNITS/0.01ML SC SCH ×2 (09:00→20:05)
[2021-03-28] MEDS: amLODIPine 5 MG TAB PO SCH ×2 (09:38→20:29)
[2021-03-28] MEDS: AUGMENTIN 500 MG TAB PO SCH ×2 (09:38→20:29)
[2021-03-28 12:09] LABS: BASO % 0.8 % (0.0-1.0); EOS # 0.1 10^3/uL (0.0-0.5); EOS % 2.6 % (0.0-3.0); HEMATOCRIT 28.3 % (36.0-47.0); LYMPH # 1.2 10^3/uL (1.5-5.0); LYMPH % 23.8 % (24.0-44.0); MEAN CORPUSCULAR HEMOGLOBIN 26.2 pg (27.0-33.0); MEAN CORPUSCULAR HGB CONC 31.8 g/dl (32.0-36.5); MEAN CORPUSCULAR VOLUME 82.3 fl (80.0-96.0); MONO # 0.3 10^3/uL (0.0-0.8); MONO % 5.8 % (2.0-8.0); NEUTROPHILS # 3.3 10^3/uL (1.5-8.5); NEUTROPHILS % 66.2 % (36.0-66.0); PLATELET COUNT, AUTOMATED 187 10^3/uL (150-450); RED BLOOD COUNT 3.44 10^6/uL (4.00-5.40)
[2021-03-28 12:28] LABS: CREATININE FOR GFR 6.84 MG/DL (0.55-1.30); MAGNESIUM LEVEL 2.3 MG/DL (1.8-2.4); PHOSPHORUS LEVEL 5.3 MG/DL (2.5-4.9); POTASSIUM SERUM 4.4 MEQ/L (3.5-5.1)
[2021-03-28 14:00] VITALS: BP 170/90
[2021-03-28 22:00] VITALS: BP 152/68
[2021-03-29] MEDS: HEPARIN SOD (PORCINE) 5000UNITS/ML 1ML VIAL/SYRINGE SC SCH ×3 (05:34→20:48)
[2021-03-29] MEDS: NITROGLYCERIN 2% OINT 1 GM *U/D* PKT TOP SCH ×3 (05:40→18:48)
[2021-03-29 06:00] VITALS: BP 142/86
[2021-03-29 06:40] LABS: BASO % 0.7 % (0.0-1.0); EOS # 0.2 10^3/uL (0.0-0.5); EOS % 2.7 % (0.0-3.0); LYMPH # 1.3 10^3/uL (1.5-5.0); LYMPH % 22.9 % (24.0-44.0); MEAN CORPUSCULAR HGB CONC 32.1 g/dl (32.0-36.5); MEAN CORPUSCULAR VOLUME 80.9 fl (80.0-96.0); MONO # 0.4 10^3/uL (0.0-0.8); MONO % 7.5 % (2.0-8.0); NEUTROPHILS # 3.6 10^3/uL (1.5-8.5); NEUTROPHILS % 65.3 % (36.0-66.0); PLATELET COUNT, AUTOMATED 192 10^3/uL (150-450); RED BLOOD COUNT 3.46 10^6/uL (4.00-5.40); WHITE BLOOD COUNT 5.5 10^3/uL (4.0-10.0)
[2021-03-29 06:58] LABS: CALCIUM LEVEL 9.2 MG/DL (8.5-10.1); CREATININE FOR GFR 6.82 MG/DL (0.55-1.30); GLOMERULAR FILTRATION RATE 7.1 (>58); MAGNESIUM LEVEL 2.4 MG/DL (1.8-2.4); PHOSPHORUS LEVEL 5.9 MG/DL (2.5-4.9); POTASSIUM SERUM 4.1 MEQ/L (3.5-5.1)
[2021-03-29] MEDS: HumaLOG INSULIN (NovoLOG) PER UNIT SC SCH ×4 (07:30→20:04)
[2021-03-29] MEDS: LEVEMIR (INSULIN DETEMIR) 1 UNITS/0.01ML SC SCH ×2 (07:42→20:48)
[2021-03-29] MEDS: FLUTICASONE HFA 110 MCG 12 GM INHALER (FLOVENT) INH SCH ×2 (08:15→19:52)
[2021-03-29] MEDS: amLODIPine 5 MG TAB PO SCH ×2 (09:14→21:10)
[2021-03-29] MEDS: AUGMENTIN 500 MG TAB PO SCH ×2 (09:14→22:17)
[2021-03-29 14:00] VITALS: BP 138/80
[2021-03-29 22:00] VITALS: BP 152/64
[2021-03-30] MEDS: NITROGLYCERIN 2% OINT 1 GM *U/D* PKT TOP SCH ×4 (00:24→17:41)
[2021-03-30] MEDS: HEPARIN SOD (PORCINE) 5000UNITS/ML 1ML VIAL/SYRINGE SC SCH ×3 (05:42→21:03)
[2021-03-30 06:00] VITALS: BP 116/68
[2021-03-30] MEDS: HumaLOG INSULIN (NovoLOG) PER UNIT SC SCH ×5 (07:30→20:07)
[2021-03-30] MEDS: FLUTICASONE HFA 110 MCG 12 GM INHALER (FLOVENT) INH SCH ×2 (07:32→20:20)
[2021-03-30 07:47] LABS: BASO % 0.9 % (0.0-1.0); EOS # 0.1 10^3/uL (0.0-0.5); EOS % 2.6 % (0.0-3.0); HEMATOCRIT 25.2 % (36.0-47.0); HEMOGLOBIN 8.1 g/dl (12.0-15.5); LYMPH # 1.5 10^3/uL (1.5-5.0); MEAN CORPUSCULAR HEMOGLOBIN 26.2 pg (27.0-33.0); MEAN CORPUSCULAR HGB CONC 32.1 g/dl (32.0-36.5); MEAN CORPUSCULAR VOLUME 81.6 fl (80.0-96.0); MONO # 0.4 10^3/uL (0.0-0.8); MONO % 7.5 % (2.0-8.0); NEUTROPHILS # 2.6 10^3/uL (1.5-8.5); NEUTROPHILS % 56.6 % (36.0-66.0); PLATELET COUNT, AUTOMATED 153 10^3/uL (150-450); RED BLOOD COUNT 3.09 10^6/uL (4.00-5.40); WHITE BLOOD COUNT 4.7 10^3/uL (4.0-10.0)
[2021-03-30 08:04] LABS: CALCIUM LEVEL 8.4 MG/DL (8.5-10.1); CREATININE FOR GFR 6.4 MG/DL (0.55-1.30); GLOMERULAR FILTRATION RATE 7.6 (>58); MAGNESIUM LEVEL 2.1 MG/DL (1.8-2.4); PHOSPHORUS LEVEL 6.1 MG/DL (2.5-4.9); POTASSIUM SERUM 4.3 MEQ/L (3.5-5.1)
[2021-03-30] MEDS: AUGMENTIN 500 MG TAB PO SCH ×2 (10:07→20:17)
[2021-03-30] MEDS: amLODIPine 5 MG TAB PO SCH ×2 (10:13→20:17)
[2021-03-30] MEDS: LEVEMIR (INSULIN DETEMIR) 1 UNITS/0.01ML SC SCH ×2 (10:14→20:18)
[2021-03-30 20:30] VITALS: BP 147/86
[2021-03-31] MEDS: NITROGLYCERIN 2% OINT 1 GM *U/D* PKT TOP SCH ×4 (00:31→18:36)
[2021-03-31] MEDS: HEPARIN SOD (PORCINE) 5000UNITS/ML 1ML VIAL/SYRINGE SC SCH ×3 (05:17→21:52)
[2021-03-31 05:52] VITALS: BP 134/80
[2021-03-31] MEDS: HumaLOG INSULIN (NovoLOG) PER UNIT SC SCH ×4 (07:30→21:00)
[2021-03-31] MEDS: FLUTICASONE HFA 110 MCG 12 GM INHALER (FLOVENT) INH SCH ×2 (07:54→19:39)
[2021-03-31] MEDS: LEVEMIR (INSULIN DETEMIR) 1 UNITS/0.01ML SC SCH ×2 (08:30→21:00)
[2021-03-31] MEDS: AUGMENTIN 500 MG TAB PO SCH ×2 (08:35→21:52)
[2021-03-31] MEDS: amLODIPine 5 MG TAB PO SCH ×2 (08:35→21:53)
[2021-03-31 09:08] LABS: BASO % 0.8 % (0.0-1.0); EOS # 0.1 10^3/uL (0.0-0.5); EOS % 2.5 % (0.0-3.0); HEMATOCRIT 25.5 % (36.0-47.0); HEMOGLOBIN 8.2 g/dl (12.0-15.5); LYMPH # 1.4 10^3/uL (1.5-5.0); LYMPH % 29.7 % (24.0-44.0); MEAN CORPUSCULAR HEMOGLOBIN 26.6 pg (27.0-33.0); MEAN CORPUSCULAR HGB CONC 32.2 g/dl (32.0-36.5); MEAN CORPUSCULAR VOLUME 82.8 fl (80.0-96.0); MONO # 0.4 10^3/uL (0.0-0.8); MONO % 9.3 % (2.0-8.0); NEUTROPHILS # 2.7 10^3/uL (1.5-8.5); NEUTROPHILS % 57.3 % (36.0-66.0); PLATELET COUNT, AUTOMATED 152 10^3/uL (150-450); RED BLOOD COUNT 3.08 10^6/uL (4.00-5.40); WHITE BLOOD COUNT 4.7 10^3/uL (4.0-10.0)
[2021-03-31 09:25] LABS: CALCIUM LEVEL 8.5 MG/DL (8.5-10.1); CREATININE FOR GFR 5.88 MG/DL (0.55-1.30); GLOMERULAR FILTRATION RATE 8.4 (>58); PHOSPHORUS LEVEL 6.4 MG/DL (2.5-4.9); POTASSIUM SERUM 4.3 MEQ/L (3.5-5.1)
[2021-03-31 14:00] VITALS: BP 130/72
[2021-03-31] MEDS: (RENVELA) SEVELAMER **CARBONate** 800 MG TAB PO SCH (18:20)
[2021-03-31] MEDS ORDERED: PILL CUTTER 1 EACH XX PRN (18:25)
[2021-03-31 20:55] VITALS: BP 150/84
[2021-04-01] MEDS: HEPARIN SOD (PORCINE) 5000UNITS/ML 1ML VIAL/SYRINGE SC SCH (05:22)
[2021-04-01] MEDS: NITROGLYCERIN 2% OINT 1 GM *U/D* PKT TOP SCH ×3 (05:23→12:00)
[2021-04-01 06:00] VITALS: BP 142/76
[2021-04-01 06:11] LABS: BASO # 0.1 10^3/uL (0.0-0.2); EOS # 0.1 10^3/uL (0.0-0.5); HEMATOCRIT 28.3 % (36.0-47.0); LYMPH # 1.6 10^3/uL (1.5-5.0); LYMPH % 31.9 % (24.0-44.0); MEAN CORPUSCULAR HGB CONC 31.8 g/dl (32.0-36.5); MEAN CORPUSCULAR VOLUME 81.8 fl (80.0-96.0); MONO # 0.4 10^3/uL (0.0-0.8); NEUTROPHILS # 2.9 10^3/uL (1.5-8.5); NEUTROPHILS % 57.5 % (36.0-66.0); PLATELET COUNT, AUTOMATED 160 10^3/uL (150-450); RED BLOOD COUNT 3.46 10^6/uL (4.00-5.40); WHITE BLOOD COUNT 5.1 10^3/uL (4.0-10.0)
[2021-04-01 06:36] LABS: CALCIUM LEVEL 8.7 MG/DL (8.5-10.1); CREATININE FOR GFR 5.11 MG/DL (0.55-1.30); GLOMERULAR FILTRATION RATE 9.9 (>58); MAGNESIUM LEVEL 2.1 MG/DL (1.8-2.4); PHOSPHORUS LEVEL 5.1 MG/DL (2.5-4.9); POTASSIUM SERUM 4.1 MEQ/L (3.5-5.1)
[2021-04-01] MEDS: LEVEMIR (INSULIN DETEMIR) 1 UNITS/0.01ML SC SCH (08:28)
[2021-04-01] MEDS: HumaLOG INSULIN (NovoLOG) PER UNIT SC SCH ×2 (08:28→12:00)
[2021-04-01] MEDS: (RENVELA) SEVELAMER **CARBONate** 800 MG TAB PO SCH ×2 (08:28→12:25)
[2021-04-01 08:33] VITALS: BP 121/70
[2021-04-01] MEDS: amLODIPine 5 MG TAB PO SCH (08:33)
[2021-04-01] MEDS: FLUTICASONE HFA 110 MCG 12 GM INHALER (FLOVENT) INH SCH (08:45)
[2021-04-01] MEDS ORDERED: AMLO1TAB24 PO (10:35)
[2021-04-01] MEDS ORDERED: CLON0.1D3 TOP (10:35)
== END 2021-04-01 13:12 | disposition home or self-care (01) | DRG 617 ==
LOC: M MSPAV 14:42
PROVIDERS: ADMIT Internal Medicine Nephrology; ATTEND Internal Medicine
PROC: 0Y6Q0Z1 Detachment at Left 1st Toe, High, Open Approach (ICD-10-PCS; principal; 2021-03-19 08:30)
PROC: 0LBP0ZZ Excision of Left Lower Leg Tendon, Open Approach (ICD-10-PCS; 2021-03-24)
PROC: 06HM33Z Insertion of Infusion Device into Right Femoral Vein, Percutaneous Approach (ICD-10-PCS; 2021-03-24)
DX: E11.69 Type 2 diabetes mellitus with other specified complication (principal); M86.9 Osteomyelitis, unspecified; L02.612 Cutaneous abscess of left foot; Z68.41 Body mass index [BMI] 40.0-44.9, adult; E87.2 Acidosis; E11.621 Type 2 diabetes mellitus with foot ulcer; M79.7 Fibromyalgia; E11.43 Type 2 diabetes mellitus with diabetic autonomic (poly)neuropathy; J45.909 Unspecified asthma, uncomplicated; F32.A Depression, unspecified; E66.9 Obesity, unspecified; G47.33 Obstructive sleep apnea (adult) (pediatric); Z79.4 Long term (current) use of insulin; Z79.899 Other long term (current) drug therapy; Z88.1 Allergy status to other antibiotic agents; Z88.8 Allergy status to other drugs, medicaments and biological substances; Z91.040 Latex allergy status; J44.9 Chronic obstructive pulmonary disease, unspecified; M19.90 Unspecified osteoarthritis, unspecified site; Z90.49 Acquired absence of other specified parts of digestive tract; F43.10 Post-traumatic stress disorder, unspecified; E28.2 Polycystic ovarian syndrome; N17.9 Acute kidney failure, unspecified; D64.9 Anemia, unspecified; R00.1 Bradycardia, unspecified; I10 Essential (primary) hypertension; E11.42 Type 2 diabetes mellitus with diabetic polyneuropathy

== ENCOUNTER → 2021-03-18 | Outpatient (REF) | payer MEDICARE, MEDICAID ==
[~2021-03-18] MED LIST changes: -AMLO1TAB24 PO; -CLON0.1D3 TOP
== END ==
LOC: M LAB REF 17:19
PROVIDERS: ATTEND Podiatrist Foot & Ankle Surgery
DX: L03.116 Cellulitis of left lower limb (principal)

== ENCOUNTER 2021-07-02 10:49 | Emergency (ER) | payer MEDICARE, MEDICAID ==
[~2021-07-02] VITALS: Ht 167.6 cm; Wt 107.5 kg
[~2021-07-02 10:49] MED LIST changes: +AMLO1TAB24 PO; +CLON0.1D3 TOP; +HYDR25SU23 PR
[2021-07-02] MEDS ORDERED: LISI5TAB11 PO (11:06)
[2021-07-02] MEDS ORDERED: BUPR150T12 PO (11:06)
[2021-07-02] MEDS ORDERED: LIDOCAINE 2% MDV 20ML VIAL SC ONE (15:35)
[2021-07-02] MEDS ORDERED: DOXY-443 PO (16:13)
[2021-07-02 16:15] VITALS: BP 101/58
== END 2021-07-02 16:20 | disposition home or self-care (01) ==
LOC: M ED 12:37
DX: L02.214 Cutaneous abscess of groin (principal); I51.9 Heart disease, unspecified; E11.9 Type 2 diabetes mellitus without complications; I10 Essential (primary) hypertension; Z79.4 Long term (current) use of insulin; Z79.899 Other long term (current) drug therapy; Z91.040 Latex allergy status; Z88.8 Allergy status to other drugs, medicaments and biological substances

== ENCOUNTER 2021-12-16 08:44 | Emergency (ER) | payer MEDICARE, MEDICAID ==
[~2021-12-16] VITALS: Ht 167.6 cm; Wt 102.3 kg
[~2021-12-16 08:44] MED LIST changes: +DOXY-443 PO; +LISI5TAB11 PO
[2021-12-16 12:11] VITALS: BP 137/67
== END 2021-12-16 12:13 | disposition home or self-care (01) ==
LOC: M ED 08:44
DX: S93.402A Sprain of unspecified ligament of left ankle, initial encounter (principal); X50.9XXA Other and unspecified overexertion or strenuous movements or postures, initial encounter; Y92.018 Other place in single-family (private) house as the place of occurrence of the external cause; E11.9 Type 2 diabetes mellitus without complications; J45.909 Unspecified asthma, uncomplicated; E28.2 Polycystic ovarian syndrome; M79.7 Fibromyalgia; A52.16 Charcot's arthropathy (tabetic); R51.9 Headache, unspecified; Z88.8 Allergy status to other drugs, medicaments and biological substances; Z91.040 Latex allergy status; Z79.899 Other long term (current) drug therapy; Z79.4 Long term (current) use of insulin

== ENCOUNTER → 2021-12-30 | Outpatient (CLI) | payer MEDICARE, MEDICAID ==
[2021-12-30 12:38] LABS: HCG, SERUM QUALITATIVE NEGATIVE (NEGATIVE)
== END ==
LOC: M LAB 11:02
PROVIDERS: ATTEND Internal Medicine Cardiovascular Disease
DX: Z34.90 Encounter for supervision of normal pregnancy, unspecified, unspecified trimester (principal)

== ENCOUNTER 2022-05-21 12:05 | Emergency (ER) | payer MEDICARE, MEDICAID ==
[~2022-05-21] VITALS: Ht 167.6 cm; Wt 113.6 kg
[~2022-05-21 12:05] MED LIST changes: -HYDR25SU23 PR; +HYDR25SU61 PR
[2022-05-21] MEDS ORDERED: TRUL0.5I (12:15)
[2022-05-21] MEDS ORDERED: NORCO, ANEXSIA 5/325MG TABLET (HYDROcodone/ACETAMINOPHEN) PO ONE (14:05)
[2022-05-21] MEDS ORDERED: LIDOCAINE 1% MDV 20ML VIAL SC ONE (14:55)
[2022-05-21] MEDS ORDERED: DOXYCYCLINE HYCLATE 100MG TABLET PO ONE (14:55)
[2022-05-21 15:20] VITALS: BP 133/89
[2022-05-21] MEDS ORDERED: DOXY-443 PO (15:22)
== END 2022-05-21 15:27 | disposition home or self-care (01) ==
LOC: M ED 12:05
DX: N76.4 Abscess of vulva (principal); Z88.1 Allergy status to other antibiotic agents; Z88.8 Allergy status to other drugs, medicaments and biological substances; Z91.040 Latex allergy status; Z79.811 Long term (current) use of aromatase inhibitors; Z79.51 Long term (current) use of inhaled steroids; Z79.899 Other long term (current) drug therapy

== ENCOUNTER 2022-05-30 11:09 | Emergency (ER) | payer MEDICARE, MEDICAID ==
[~2022-05-30] VITALS: Ht 167.6 cm; Wt 113.6 kg
[~2022-05-30 11:09] MED LIST changes: +TRUL0.5I
[2022-05-30 13:55] LABS: BASO # 0.1 10^3/uL (0.0-0.2); BASO % 0.8 % (0.0-1.0); EOS # 0.2 10^3/uL (0.0-0.5); EOS % 2.9 % (0.0-3.0); HEMATOCRIT 40.4 % (36.0-47.0); HEMOGLOBIN 13.1 g/dl (12.0-15.5); LYMPH # 2.1 10^3/uL (1.5-5.0); LYMPH % 32.5 % (24.0-44.0); MEAN CORPUSCULAR HEMOGLOBIN 27.1 pg (27.0-33.0); MEAN CORPUSCULAR HGB CONC 32.4 g/dl (32.0-36.5); MEAN CORPUSCULAR VOLUME 83.5 fl (80.0-96.0); MONO # 0.4 10^3/uL (0.0-0.8); MONO % 5.6 % (2.0-8.0); NEUTROPHILS # 3.7 10^3/uL (1.5-8.5); NEUTROPHILS % 57.3 % (36.0-66.0); PLATELET COUNT, AUTOMATED 178 10^3/uL (150-450); RED BLOOD COUNT 4.84 10^6/uL (4.00-5.40); WHITE BLOOD COUNT 6.5 10^3/uL (4.0-10.0)
[2022-05-30 14:07] LABS: ERYTHROCYTE SEDIMENTATION RATE 41 mm/hr (0-20)
[2022-05-30 14:17] LABS: C REACTIVE PROTEIN QUANTITATIV < 0.40 MG/DL (<1.0)
[2022-05-30] MEDS ORDERED: ISOVUE-370 76% 100ML VIAL As Ordered ONE (14:18)
[2022-05-30 14:22] LABS: ALBUMIN 3.2 G/DL (3.2-5.2); ALKALINE PHOSPHATASE 65 U/L (46-116); ALT/SGPT 64 U/L (7.0-40); AST/SGOT 59 U/L (<34); BILIRUBIN,DIRECT 0.1 MG/DL (<0.4); BILIRUBIN,TOTAL 0.5 MG/DL (0.3-1.2); TOTAL PROTEIN 6.3 G/DL (5.7-8.2)
[2022-05-30 14:24] LABS: RSV AMPLIFICATION NEGATIVE (NEGATIVE)
[2022-05-30] MEDS ORDERED: NS 1,000 ML IV ONE (14:25)
[2022-05-30] MEDS ORDERED: PIPERACILLIN/TAZOBACTAM SOD 3.375 GM in D5W MINI-BAG PLUS 50 ML IV ONE (15:05)
[2022-05-30] MEDS ORDERED: BACT800T5 PO (16:54)
[2022-05-30 17:27] VITALS: BP 133/81
== END 2022-05-30 17:44 | disposition home or self-care (01) ==
LOC: M ED 11:09
DX: L03.315 Cellulitis of perineum (principal); N76.4 Abscess of vulva; E11.9 Type 2 diabetes mellitus without complications; J45.909 Unspecified asthma, uncomplicated; K21.9 Gastro-esophageal reflux disease without esophagitis; E28.2 Polycystic ovarian syndrome; F43.10 Post-traumatic stress disorder, unspecified; F41.9 Anxiety disorder, unspecified; F32.A Depression, unspecified; G43.909 Migraine, unspecified, not intractable, without status migrainosus; Z88.8 Allergy status to other drugs, medicaments and biological substances; Z91.040 Latex allergy status; Z79.51 Long term (current) use of inhaled steroids; Z79.811 Long term (current) use of aromatase inhibitors; Z79.4 Long term (current) use of insulin; Z79.899 Other long term (current) drug therapy
CPT/HCPCS: 72193; 80047; 80076; 83605; 84702; 85025; 85652; 86140; 87040; 87070; 87205; 87631; 96374; 99284; J2543; Q9967

== ENCOUNTER → 2022-07-07 | Outpatient (CLI) | payer MEDICARE, MEDICAID | LOC: M LABSMTC 08:49 | PROVIDERS: ATTEND Internal Medicine Gastroenterology | DX: Z11.52 Encounter for screening for COVID-19 (principal) ==

== ENCOUNTER → 2022-08-14 | Outpatient (REF) | payer MEDICARE, MEDICAID ==
[2022-08-14 18:30] LABS: ALBUMIN 3.8 G/DL (3.2-5.2); ALKALINE PHOSPHATASE 62 U/L (46-116); ALT/SGPT 51 U/L (7.0-40); AST/SGOT 45 U/L (<34); BILIRUBIN,DIRECT 0.2 MG/DL (<0.4); BILIRUBIN,TOTAL 0.6 MG/DL (0.3-1.2); BLOOD UREA NITROGEN 13 MG/DL (9-23); CALCIUM LEVEL 8.8 MG/DL (8.5-10.1); CARBON DIOXIDE LEVEL 23 MMOL/L (20-31); CHLORIDE LEVEL 101 MMOL/L (98-107); CREATININE FOR GFR 0.59 MG/DL (0.55-1.30); GLOMERULAR FILTRATION RATE > 60.0 (>58); GLUCOSE, FASTING 399 MG/DL (60-100); POTASSIUM SERUM 4.5 MMOL/L (3.5-5.1); SODIUM LEVEL 134 MMOL/L (136-145)
[2022-08-14 18:31] LABS: HEMOGLOBIN A1c 12.9 % (4.0-6.0)
== END ==
LOC: M LAB REF 16:20
PROVIDERS: ATTEND Pediatrics
DX: E11.42 Type 2 diabetes mellitus with diabetic polyneuropathy (principal); R74.01 Elevation of levels of liver transaminase levels; I10 Essential (primary) hypertension

== ENCOUNTER → 2022-09-27 | Outpatient (CLI) | payer MEDICARE, MEDICAID | LOC: M WHC 10:05 | PROVIDERS: ATTEND Nurse Practitioner Family | DX: Z12.31 Encounter for screening mammogram for malignant neoplasm of breast (principal) ==

== ENCOUNTER → 2022-09-27 | Outpatient (REF) | payer MEDICARE, MEDICAID | LOC: M SFHCWAGY 13:21 | PROVIDERS: ATTEND Nurse Practitioner Family | DX: Z12.4 Encounter for screening for malignant neoplasm of cervix (principal); R87.610 Atypical squamous cells of undetermined significance on cytologic smear of cervix (ASC-US) | CPT/HCPCS: 87624; G0123 ==

== ENCOUNTER → 2022-11-15 | Outpatient (REF) | payer MEDICARE, MEDICAID ==
[2022-11-15 17:46] LABS: HEMOGLOBIN A1c 11.5 % (4.0-6.0)
[2022-11-15 18:01] LABS: CHOLESTEROL LEVEL 162 MG/DL (<200); CHOLESTEROL RISK RATIO 5.07 (<5); HDL CHOLESTEROL 31.9 MG/DL (>40); NON-HDL-C 130.1 MG/DL; TRIGLYCERIDES LEVEL 410 MG/DL (<150)
== END ==
LOC: M LAB REF 16:42
PROVIDERS: ATTEND Pediatrics
DX: E11.42 Type 2 diabetes mellitus with diabetic polyneuropathy (principal); E11.65 Type 2 diabetes mellitus with hyperglycemia; E78.5 Hyperlipidemia, unspecified

== ENCOUNTER → 2022-11-23 | Outpatient (CLI) | payer MEDICARE, MEDICAID | LOC: M RAD 14:10 | PROVIDERS: ATTEND Pediatrics | DX: M25.519 Pain in unspecified shoulder (principal) ==

== ENCOUNTER → 2022-12-05 | Outpatient (CLI) | payer MEDICARE, MEDICAID ==
[2022-12-05 11:38] LABS: BLOOD UREA NITROGEN 20 MG/DL (9-23); CALCIUM LEVEL 9.2 MG/DL (8.5-10.1); CARBON DIOXIDE LEVEL 26 MMOL/L (20-31); CHLORIDE LEVEL 103 MMOL/L (98-107); CREATININE FOR GFR 0.59 MG/DL (0.55-1.30); GLOMERULAR FILTRATION RATE > 60.0 (>58); GLUCOSE, FASTING 327 MG/DL (60-100); POTASSIUM SERUM 4.5 MMOL/L (3.5-5.1); SODIUM LEVEL 136 MMOL/L (136-145)
== END ==
LOC: M LAB 10:23
PROVIDERS: ATTEND Internal Medicine Endocrinology, Diabetes & Metabolism
DX: E11.65 Type 2 diabetes mellitus with hyperglycemia (principal)

== ENCOUNTER → 2023-02-21 | Outpatient (CLI) | payer MEDICARE, MEDICAID ==
[2023-02-21 12:30] LABS: PLATELET COUNT, AUTOMATED 219 10^3/uL (150-450)
[2023-02-21 12:33] LABS: URINE PREG TEST NEGATIVE (NEGATIVE)
[2023-02-21 12:43] LABS: INR 1.08; PARTIAL THROMBOPLASTIN TIME 24.5 SECONDS (24.8-34.2); PROTHROMBIN TIME 13.7 SECONDS (12.5-14.5)
[2023-02-21 12:47] LABS: COLLAGEN EPINEPHRINE 80 SECONDS (74-162)
== END ==
LOC: M LAB 11:41
PROVIDERS: ATTEND Physician Assistant
DX: Z01.818 Encounter for other preprocedural examination (principal); Z86.39 Personal history of other endocrine, nutritional and metabolic disease

== ENCOUNTER 2023-04-08 22:23 | Observation (INO) | payer MEDICARE, MEDICAID ==
[~2023-04-08] VITALS: Ht 160 cm; Wt 111.4 kg
[2023-04-08 23:22] LABS: HEMATOCRIT 40.6 % (36.0-47.0); HEMOGLOBIN 13.7 g/dl (12.0-15.5); MEAN CORPUSCULAR HEMOGLOBIN 26.9 pg (27.0-33.0); MEAN CORPUSCULAR HGB CONC 33.7 g/dl (32.0-36.5); MEAN CORPUSCULAR VOLUME 79.6 fl (80.0-96.0); PLATELET COUNT, AUTOMATED 169 10^3/uL (150-450); WHITE BLOOD COUNT 7.8 10^3/uL (4.0-10.0)
[2023-04-08 23:29] LABS: AMPHETAMINES LEVEL URINE NEGATIVE (NEGATIVE)
[2023-04-08 23:30] LABS: BARBITURATES URINE NEGATIVE (NEGATIVE); BENZODIAZEPINES URINE NEGATIVE (NEGATIVE); CANNABINOIDS URINE NEGATIVE (NEGATIVE); COCAINE METABOLITE URINE NEGATIVE (NEGATIVE); METHADONE URINE NEGATIVE (NEGATIVE); OPIATES URINE NEGATIVE (NEGATIVE); PHENCYCLIDINE URINE NEGATIVE (NEGATIVE)
[2023-04-08 23:32] LABS: ETHYL ALCOHOL (ETHANOL) 0.142 % (0.000-0.010)
[2023-04-08 23:33] LABS: SALICYLATE LEVEL < 3.0 MG/DL (<30)
[2023-04-08 23:36] LABS: THYROID STIMULATING HORMONE 1.848 uIU/ML (0.55-4.78)
[2023-04-08 23:39] LABS: ALBUMIN 3.6 G/DL (3.2-5.2); ALKALINE PHOSPHATASE 65 U/L (46-116); ALT/SGPT 58 U/L (7.0-40); AST/SGOT 32 U/L (<34); BILIRUBIN,DIRECT 0.1 MG/DL (<0.4); BILIRUBIN,TOTAL 0.4 MG/DL (0.3-1.2); BLOOD UREA NITROGEN 9 MG/DL (9-23); CALCIUM LEVEL 8.6 MG/DL (8.5-10.1); CARBON DIOXIDE LEVEL 20 MMOL/L (20-31); CHLORIDE LEVEL 101 MMOL/L (98-107); CREATININE FOR GFR 0.42 MG/DL (0.55-1.30); GLOMERULAR FILTRATION RATE > 60.0 (>58); GLUCOSE, FASTING 456 MG/DL (60-100); POTASSIUM SERUM 3.3 MMOL/L (3.5-5.1); SODIUM LEVEL 133 MMOL/L (136-145); TOTAL PROTEIN 6.6 G/DL (5.7-8.2)
[2023-04-08] MEDS ORDERED: INSULIN LISPRO (NovoLOG) PER UNIT SC STA (23:41)
[2023-04-08] MEDS ORDERED: LEVEMIR (INSULIN DETEMIR) 1 UNITS/0.01ML SC ONE (23:45)
[2023-04-08] MEDS ORDERED: LISI10TA22 PO (23:51)
[2023-04-08] MEDS ORDERED: METO5TAB2 PO (23:51)
[2023-04-08] MEDS ORDERED: METF-838 PO (23:51)
[2023-04-08] MEDS ORDERED: HOME MED LIST COMPLETE! XX SCH (23:55)
[2023-04-09] MEDS ORDERED: POTASSIUM CHLORIDE 10MEQ SR TABLET PO ONE
[2023-04-09] MEDS ORDERED: INSULIN LISPRO (NovoLOG) PER UNIT SC SCH ×2 (07:30→21:00)
[2023-04-09 07:41] LABS: HEMOGLOBIN A1c 13.1 % (4.0-6.0)
[2023-04-09 08:46] LABS: HCG, SERUM QUALITATIVE NEGATIVE (NEGATIVE)
[2023-04-09] MEDS ORDERED: LEVEMIR (INSULIN DETEMIR) 1 UNITS/0.01ML SC SCH (09:00)
[2023-04-09] MEDS ORDERED: GLUCOSE 4GM CHEW TABLET PO PRN (10:15)
[2023-04-09] MEDS ORDERED: GLUCAGON INJ 1MG VIAL SC PRN (10:15)
[2023-04-09] MEDS ORDERED: DEXTROSE 50% 50ML SYRINGE IV PRN (10:15)
[2023-04-09] MEDS: INSULIN LISPRO (NovoLOG) PER UNIT SC SCH ×3 (13:25→21:30)
[2023-04-09 15:00] VITALS: BP 146/84; TEMP 97.3; O2SAT 98
[2023-04-09 20:18] VITALS: BP 111/76; TEMP 97.7; O2SAT 98
[2023-04-09] MEDS: ENOXAPARIN 40MG/0.4ML SYRINGE (J1650 PER 10MG) SC SCH (21:29)
[2023-04-09] MEDS: METOCLOPRAMIDE 5 MG TAB PO SCH (21:30)
[2023-04-09] MEDS: LEVEMIR (INSULIN DETEMIR) 1 UNITS/0.01ML SC SCH (21:30)
[2023-04-10] VITALS (9 sets, daily range): BP systolic 95–128; BP diastolic 56–91; TEMP 97–97.9; O2SAT 90–98
[2023-04-10 06:08] LABS: HEMATOCRIT 37.4 % (36.0-47.0); HEMOGLOBIN 12.4 g/dl (12.0-15.5); MEAN CORPUSCULAR HEMOGLOBIN 27.3 pg (27.0-33.0); MEAN CORPUSCULAR HGB CONC 33.2 g/dl (32.0-36.5); MEAN CORPUSCULAR VOLUME 82.2 fl (80.0-96.0); PLATELET COUNT, AUTOMATED 133 10^3/uL (150-450); RED BLOOD COUNT 4.55 10^6/uL (4.00-5.40)
[2023-04-10 06:34] LABS: BLOOD UREA NITROGEN 14 MG/DL (9-23); CALCIUM LEVEL 8.4 MG/DL (8.5-10.1); CARBON DIOXIDE LEVEL 26 MMOL/L (20-31); CHLORIDE LEVEL 106 MMOL/L (98-107); CHOLESTEROL LEVEL 147 MG/DL (<200); CHOLESTEROL RISK RATIO 5.97 (<5); CREATININE FOR GFR 0.51 MG/DL (0.55-1.30); GLOMERULAR FILTRATION RATE > 60.0 (>58); GLUCOSE, FASTING 233 MG/DL (60-100); HDL CHOLESTEROL 24.6 MG/DL (>40); NON-HDL-C 122.4 MG/DL; POTASSIUM SERUM 3.6 MMOL/L (3.5-5.1); SODIUM LEVEL 138 MMOL/L (136-145); TRIGLYCERIDES LEVEL 417 MG/DL (<150)
[2023-04-10] MEDS: METOCLOPRAMIDE 5 MG TAB PO SCH ×2 (08:00→20:55)
[2023-04-10] MEDS: ENOXAPARIN 40MG/0.4ML SYRINGE (J1650 PER 10MG) SC SCH ×2 (08:04→20:57)
[2023-04-10] MEDS: LEVEMIR (INSULIN DETEMIR) 1 UNITS/0.01ML SC SCH ×2 (08:06→20:56)
[2023-04-10] MEDS: INSULIN LISPRO (NovoLOG) PER UNIT SC SCH ×5 (08:06→20:56)
[2023-04-10] MEDS: lisinopriL 5 MG TAB PO SCH (08:10)
[2023-04-10] MEDS ORDERED: INSULIN LISPRO (NovoLOG) PER UNIT SC ONE (12:30)
[2023-04-10] MEDS: CEPHALEXIN 500 MG CAP PO SCH (23:09)
[2023-04-11 01:30] VITALS: BP 112/56; TEMP 98.1; O2SAT 96
[2023-04-11 05:10] VITALS: BP 116/61; TEMP 97.2; O2SAT 97
[2023-04-11] MEDS: CEPHALEXIN 500 MG CAP PO SCH ×2 (05:56→11:48)
[2023-04-11] MEDS: INSULIN LISPRO (NovoLOG) PER UNIT SC SCH ×4 (08:27→11:49)
[2023-04-11] MEDS: METOCLOPRAMIDE 5 MG TAB PO SCH (08:28)
[2023-04-11] MEDS: LEVEMIR (INSULIN DETEMIR) 1 UNITS/0.01ML SC SCH (08:28)
[2023-04-11 08:29] VITALS: BP 116/61
[2023-04-11] MEDS: ENOXAPARIN 40MG/0.4ML SYRINGE (J1650 PER 10MG) SC SCH ×2 (08:29→08:33)
[2023-04-11] MEDS: lisinopriL 5 MG TAB PO SCH (08:29)
[2023-04-11 10:00] VITALS: BP 120/67; TEMP 97.3; O2SAT 98
== END 2023-04-11 12:26 | disposition home or self-care (01) ==
LOC: M ED 22:23 → EDBD 22:23 → M ED INP 22:25 → EEVIPCON 22:25 → UNDOADMOB 04-09 10:15 → M ED INP 04-09 10:15 → M MSPAV 04-09 15:12
PROVIDERS: ADMIT Family Medicine; ATTEND Internal Medicine Nephrology
DX: E11.00 Type 2 diabetes mellitus with hyperosmolarity without nonketotic hyperglycemic-hyperosmolar coma (NKHHC) (principal); E11.65 Type 2 diabetes mellitus with hyperglycemia; Z91.148 Patient's other noncompliance with medication regimen for other reason; Z91.119 Patient's noncompliance with dietary regimen due to unspecified reason; F43.10 Post-traumatic stress disorder, unspecified; R45.88 Nonsuicidal self-harm; S60.812A Abrasion of left wrist, initial encounter; Y92.89 Other specified places as the place of occurrence of the external cause; W26.0XXA Contact with knife, initial encounter; F32.A Depression, unspecified; F41.0 Panic disorder [episodic paroxysmal anxiety]; L97.521 Non-pressure chronic ulcer of other part of left foot limited to breakdown of skin; E11.21 Type 2 diabetes mellitus with diabetic nephropathy; E11.43 Type 2 diabetes mellitus with diabetic autonomic (poly)neuropathy; I10 Essential (primary) hypertension; K21.9 Gastro-esophageal reflux disease without esophagitis; M79.7 Fibromyalgia; E66.01 Morbid (severe) obesity due to excess calories; Z68.41 Body mass index [BMI] 40.0-44.9, adult; J45.909 Unspecified asthma, uncomplicated; J44.9 Chronic obstructive pulmonary disease, unspecified; G47.33 Obstructive sleep apnea (adult) (pediatric); Z79.899 Other long term (current) drug therapy; Z79.51 Long term (current) use of inhaled steroids; Z79.4 Long term (current) use of insulin; Z79.84 Long term (current) use of oral hypoglycemic drugs; Z91.040 Latex allergy status; Z88.8 Allergy status to other drugs, medicaments and biological substances
CPT/HCPCS: 11042; 36415; 80048; 80061; 80076; 80143; 80307; 82077; 83036; 84443; 84703; 85027; 87635; 87641; 96372; 99285; J1650; J1815

== ENCOUNTER → 2023-08-15 | Outpatient (REF) | payer MEDICARE, MEDICAID ==
[~2023-08-15] MED LIST changes: +BUPR-597 PO; -BUPR300T92 PO; +DOXY-323 PO; -DOXY-443 PO; +LISI10TA22 PO; +METF-838 PO; -MIRA1POW3 PO; +MIRA33506 PO
[2023-08-15 17:17] LABS: CREATININE, URINE 27.8 MG/DL; MALB URINE SIEMENS < 3.0 MG/L; MAU/CREAT RATIO 10.7 MCG/MG (0.0-30.0)
[2023-08-15 19:45] LABS: ALBUMIN 3.4 G/DL (3.2-5.2); ALKALINE PHOSPHATASE 63 U/L (46-116); ALT/SGPT 41 U/L (7.0-40); AST/SGOT 27 U/L (<34); BILIRUBIN,TOTAL 0.3 MG/DL (0.3-1.2); BLOOD UREA NITROGEN 14 MG/DL (9-23); CALCIUM LEVEL 8.9 MG/DL (8.5-10.1); CARBON DIOXIDE LEVEL 24 MMOL/L (20-31); CHLORIDE LEVEL 101 MMOL/L (98-107); CHOLESTEROL LEVEL 152 MG/DL (<200); CHOLESTEROL RISK RATIO 5.27 (<5); CREATININE FOR GFR 0.49 MG/DL (0.55-1.30); GLOMERULAR FILTRATION RATE > 60.0 (>58); GLUCOSE, FASTING 463 MG/DL (60-100); HDL CHOLESTEROL 28.8 MG/DL (>40); LDL CHOLESTEROL 44.6 MG/DL (<100); NON-HDL-C 123.2 MG/DL; POTASSIUM SERUM 4.5 MMOL/L (3.5-5.1); SODIUM LEVEL 132 MMOL/L (136-145); THYROID STIMULATING HORMONE 1.099 uIU/ML (0.55-4.78); TOTAL PROTEIN 6.3 G/DL (5.7-8.2); TRIGLYCERIDES LEVEL 393 MG/DL (<150)
[2023-08-15 20:43] LABS: HEMOGLOBIN A1c 11.8 % (4.0-6.0)
== END ==
LOC: M LAB REF 16:19
PROVIDERS: ATTEND Pediatrics
DX: E11.65 Type 2 diabetes mellitus with hyperglycemia (principal); Z79.4 Long term (current) use of insulin

== ENCOUNTER → 2023-08-29 | Outpatient (CLI) | payer MEDICARE, MEDICAID | LOC: M PLAIMG 09:44 | PROVIDERS: ATTEND Orthopaedic Surgery | DX: M25.531 Pain in right wrist (principal) ==

== ENCOUNTER 2023-11-10 17:53 | Emergency (ER) | payer MEDICARE, MEDICAID ==
[~2023-11-10] VITALS: Ht 167.6 cm; Wt 100.9 kg
[2023-11-10 20:00] VITALS: BP 130/80; TEMP 98.2; O2SAT 99
== END 2023-11-10 20:29 | disposition home or self-care (01) ==
LOC: M ED 17:53
DX: H92.02 Otalgia, left ear (principal); R51.9 Headache, unspecified; M79.7 Fibromyalgia; M51.36 Other intervertebral disc degeneration, lumbar region; Z88.8 Allergy status to other drugs, medicaments and biological substances; Z91.040 Latex allergy status; Z79.52 Long term (current) use of systemic steroids; Z79.899 Other long term (current) drug therapy

== ENCOUNTER 2024-01-02 14:17 | Emergency (ER) | payer MEDICARE, MEDICAID ==
[~2024-01-02] VITALS: Ht 167.6 cm; Wt 102.3 kg
[2024-01-02 14:18] VITALS: TEMP 97.3
[2024-01-02 15:14] LABS: BASO % 0.4 % (0.0-1.0); EOS # 0.1 10^3/uL (0.0-0.5); EOS % 1.8 % (0.0-3.0); HEMATOCRIT 38.6 % (36.0-47.0); LYMPH # 2.1 10^3/uL (1.5-5.0); LYMPH % 28.2 % (24.0-44.0); MEAN CORPUSCULAR HEMOGLOBIN 26.3 pg (27.0-33.0); MEAN CORPUSCULAR HGB CONC 33.7 g/dl (32.0-36.5); MONO # 0.4 10^3/uL (0.0-0.8); NEUTROPHILS # 4.7 10^3/uL (1.5-8.5); NEUTROPHILS % 64.1 % (36.0-66.0); PLATELET COUNT, AUTOMATED 163 10^3/uL (150-450); RED BLOOD COUNT 4.95 10^6/uL (4.00-5.40); WHITE BLOOD COUNT 7.4 10^3/uL (4.0-10.0)
[2024-01-02 15:43] LABS: LIPASE 27 U/L (12-53)
[2024-01-02 16:00] LABS: ALBUMIN 3.4 G/DL (3.2-5.2); ALKALINE PHOSPHATASE 68 U/L (46-116); ALT/SGPT 47 U/L (7.0-40); AST/SGOT 29 U/L (<34); BILIRUBIN,DIRECT < 0.1 MG/DL (<0.4); BILIRUBIN,TOTAL 0.4 MG/DL (0.3-1.2); BLOOD UREA NITROGEN 9 MG/DL (9-23); CALCIUM LEVEL 9.4 MG/DL (8.5-10.1); CARBON DIOXIDE LEVEL 24 MMOL/L (20-31); CHLORIDE LEVEL 106 MMOL/L (98-107); CREATININE FOR GFR 0.48 MG/DL (0.55-1.30); GLOMERULAR FILTRATION RATE > 60.0 (>58); GLUCOSE, FASTING 426 MG/DL (60-100); POTASSIUM SERUM 3.7 MMOL/L (3.5-5.1); SODIUM LEVEL 137 MMOL/L (136-145); TOTAL PROTEIN 6.6 G/DL (5.7-8.2)
[2024-01-02] MEDS: HumuLIN R (REGULAR) INSULIN (NovoLIN R) **100U/ML** PER UNIT IV ONE ×3 (16:28→20:25)
[2024-01-02] MEDS: PANTOPRAZOLE 40MG VIAL IV ONE (16:28)
[2024-01-02] MEDS: ONDANSETRON 4MG 2ML VIAL IV ONE (16:29)
[2024-01-02] MEDS: NS 1,000 ML IV SCH (16:29)
[2024-01-02 16:38] LABS: HCG, SERUM QUALITATIVE NEGATIVE (NEGATIVE)
[2024-01-02] MEDS ORDERED: ISOVUE-370 76% 100ML VIAL As Ordered ONE (17:20)
[2024-01-02] MEDS: MAALOX 30 ML SUSP *UDC PO ONE (17:53)
[2024-01-02 21:14] VITALS: BP 121/65; O2SAT 98
[2024-01-02] MEDS ORDERED: PANT40TA29 PO (21:54)
== END 2024-01-02 22:17 | disposition home or self-care (01) ==
LOC: M ED 14:17
DX: R10.9 Unspecified abdominal pain (principal); E11.65 Type 2 diabetes mellitus with hyperglycemia; E66.9 Obesity, unspecified; G43.909 Migraine, unspecified, not intractable, without status migrainosus; F32.A Depression, unspecified; M06.9 Rheumatoid arthritis, unspecified; F41.9 Anxiety disorder, unspecified; G47.33 Obstructive sleep apnea (adult) (pediatric); M51.36 Other intervertebral disc degeneration, lumbar region; Z88.8 Allergy status to other drugs, medicaments and biological substances; Z91.040 Latex allergy status; Z79.52 Long term (current) use of systemic steroids; Z79.899 Other long term (current) drug therapy; Z79.4 Long term (current) use of insulin
CPT/HCPCS: 74177; 80048; 80076; 83690; 84703; 85025; 93041; 96361; 96374; 96375; 96376; 99284; J1815; J2405; J2470; Q9967

== ENCOUNTER 2024-07-31 11:20 | Emergency (ER) | payer MEDICARE, MEDICAID ==
[~2024-07-31] VITALS: Ht 167.6 cm; Wt 104.5 kg
[~2024-07-31 11:20] MED LIST changes: -BUPR-597 PO; +BUPR-766 PO; -DOXY-323 PO; +DOXY-441 PO
[2024-07-31] MEDS: LIDOCAINE 1% MDV 20ML VIAL SC ONE (13:34)
[2024-07-31] MEDS ORDERED: BACT800T5 PO (14:06)
[2024-07-31 14:16] VITALS: BP 134/83; TEMP 98.1; O2SAT 100
== END 2024-07-31 14:25 | disposition home or self-care (01) ==
LOC: M ED 11:20
DX: L02.214 Cutaneous abscess of groin (principal); E11.9 Type 2 diabetes mellitus without complications; J45.909 Unspecified asthma, uncomplicated; K58.9 Irritable bowel syndrome, unspecified; Z88.1 Allergy status to other antibiotic agents; Z88.8 Allergy status to other drugs, medicaments and biological substances; Z91.040 Latex allergy status; Z79.4 Long term (current) use of insulin; Z79.51 Long term (current) use of inhaled steroids; Z79.899 Other long term (current) drug therapy

== ENCOUNTER 2024-10-15 13:09 | Emergency (ER) | payer MEDICARE, MEDICAID ==
[~2024-10-15] VITALS: Ht 167.6 cm; Wt 100.0 kg
[2024-10-15 15:15] VITALS: BP 109/73; TEMP 97.7; O2SAT 100
[2024-10-15 15:15] LABS: BASO # 0.0 10^3/uL (0.0-0.2); BASO % 0.3 % (0.0-1.0); EOS # 0.1 10^3/uL (0.0-0.5); EOS % 0.7 % (0.0-3.0); LYMPH # 2.2 10^3/uL (1.5-5.0); LYMPH % 22.6 % (24.0-44.0); MONO # 0.5 10^3/uL (0.0-0.8); MONO % 5.5 % (2.0-8.0); NEUTROPHILS # 6.9 10^3/uL (1.5-8.5); NEUTROPHILS % 70.7 % (36.0-66.0); PLATELET COUNT, AUTOMATED 244 10^3/uL (150-450)
[2024-10-15 15:42] LABS: ALT/SGPT 32 U/L (7.0-40); AST/SGOT 25 U/L (<34); CALCIUM LEVEL 9.3 MG/DL (8.5-10.1); CARBON DIOXIDE LEVEL 25 MMOL/L (20-31); CHLORIDE LEVEL 100 MMOL/L (98-107); CREATININE FOR GFR 0.67 MG/DL (0.55-1.30); GLOMERULAR FILTRATION RATE > 90.0 (>58); POTASSIUM SERUM 3.8 MMOL/L (3.5-5.1); SODIUM LEVEL 140 MMOL/L (136-145)
[2024-10-15] MEDS: ONDANSETRON 4MG ORAL DISINTEGRATING TAB PO ONE (19:28)
[2024-10-15] MEDS ORDERED: ONDA-282 PO (21:15)
[2024-10-15] MEDS ORDERED: FAMO20TA PO (21:15)
== END 2024-10-15 21:22 | disposition home or self-care (01) ==
LOC: M ED 13:09
DX: R11.2 Nausea with vomiting, unspecified (principal); G43.909 Migraine, unspecified, not intractable, without status migrainosus; M79.7 Fibromyalgia; J45.909 Unspecified asthma, uncomplicated; K21.9 Gastro-esophageal reflux disease without esophagitis; E28.2 Polycystic ovarian syndrome; E11.9 Type 2 diabetes mellitus without complications; Z79.52 Long term (current) use of systemic steroids; Z79.83 Long term (current) use of bisphosphonates; Z79.4 Long term (current) use of insulin; Z79.899 Other long term (current) drug therapy; Z88.8 Allergy status to other drugs, medicaments and biological substances; Z91.040 Latex allergy status

== ENCOUNTER → 2025-02-03 | Outpatient (CLI) | payer MEDICARE, MEDICAID ==
[~2025-02-03] MED LIST changes: +FAMO20TA PO; +ONDA-282 PO
== END ==
LOC: M EKG 12:25
PROVIDERS: ATTEND Student in an Organized Health Care Education/Training Program
DX: Z01.818 Encounter for other preprocedural examination (principal)

== ENCOUNTER → 2025-02-03 | Outpatient (REF) | payer MEDICARE, MEDICAID ==
[2025-02-03 16:17] LABS: CALCIUM LEVEL 9.0 MG/DL (8.5-10.1); CARBON DIOXIDE LEVEL 27 MMOL/L (20-31); CHLORIDE LEVEL 102 MMOL/L (98-107); CREATININE FOR GFR 0.54 MG/DL (0.55-1.30); GLOMERULAR FILTRATION RATE > 90.0 (>58); POTASSIUM SERUM 4.0 MMOL/L (3.5-5.1); SODIUM LEVEL 138 MMOL/L (136-145)
== END ==
LOC: M LAB REF 15:11
PROVIDERS: ATTEND Student in an Organized Health Care Education/Training Program
DX: Z01.818 Encounter for other preprocedural examination (principal)

== ENCOUNTER → 2025-03-04 | Outpatient (REF) | payer MEDICARE, MEDICAID ==
[2025-03-10 13:12] LABS: HPV APTIMA Not Detected (Not Detected)
== END ==
LOC: M SFHCWAGY 17:05
PROVIDERS: ATTEND Physician Assistant
DX: Z01.411 Encounter for gynecological examination (general) (routine) with abnormal findings (principal); N89.8 Other specified noninflammatory disorders of vagina; R87.610 Atypical squamous cells of undetermined significance on cytologic smear of cervix (ASC-US)
CPT/HCPCS: 87070; 87077; 87624; G0123

== ENCOUNTER → 2025-03-04 | Outpatient (CLI) | payer MEDICARE, MEDICAID | LOC: M WHC 14:48 | PROVIDERS: ATTEND Physician Assistant | DX: Z53.9 Procedure and treatment not carried out, unspecified reason (principal) ==